=== PATIENT | male | born 1975 | race Caucasian/White ===

== ENCOUNTER 2022-08-15 13:15 | Emergency (ER) | payer MEDICARE, SELFPAY ==
[2022-08-15] VITALS (9 sets, daily range): BP systolic 115–133; BP diastolic 72–79; PULSE 61–90; RESP 11–18; TEMP 36.7; O2SAT 95–100; BMI 38.0
[2022-08-15 13:37] LABS: POC Glucose,Bedside 400 (70-110)
--- NOTE | 2022-08-15 13:48 | XR_ITS ---
FINAL REPORT TECHNIQUE: Single view chest CLINICAL HISTORY: cva FINDINGS: A single view of the chest was obtained. The heart and mediastinum are within normal limits. The lungs are clear. There is no pneumothorax. Osseous structures are unremarkable. IMPRESSION: No acute cardiopulmonary process. Reviewed, Interpreted and Dictated by Korey Robles MD Transcribed by Geeta Sotelo Authenticated and [facility]
--- NOTE | 2022-08-15 13:48 | CT_ITS ---
FINAL REPORT TECHNIQUE: Axial CT images were performed through the head. Coronal reformatted images were submitted. This study was performed with techniques to keep radiation doses as low as reasonably achievable (ALARA). Individualized dose reduction techniques using automated exposure control or adjustment of mA and/or kV according to the patient's size were employed. CLINICAL HISTORY: headache FINDINGS: The ventricles are normal in size. There is no evidence of hemorrhage. There is no mass or edema identified. There is no abnormal extra-axial fluid seen. The sinuses are well aerated. IMPRESSION: No acute intracranial process. Reviewed, Interpreted and Dictated by Korey Robles MD Transcribed by Geeta Sotelo Authenticated and [facility]
[2022-08-15 14:00] LABS: Alanine Aminotransferase 40 U/L (12-78); Albumin Level 4.3 g/dl (3.5-5.0); Albumin/Globulin Ratio 1.4 (1.1-1.8); Alkaline Phosphatase 80 U/L (38-126); Anion Gap 18.4 mEq/L (5-15); Aspartate Amino Transferase 60 U/L (17-59); Bilirubin,Total 0.8 mg/dl (0.2-1.3); Blood Urea Nitrogen 15 mg/dl (9-20); Calcium 8.7 mg/dl (8.4-10.2); Carbon Dioxide 25 mmol/L (22.0-30.0); Chloride 100 mmol/L (98-107); Creatinine Clearance Estimated 135 mL/min (50-200); Estimated Glomerular Filt Rate 65 ml/min (>60); GFR (African American) 78 ML/MIN (>60); Globulin 3.1 g/dL (1.3-3.2); Glucose 390 mg/dl (74-100); Potassium 4.4 mmoL/L (3.5-5.1); Sodium 139 mmol/L (136-145); Total Protein,Serum 7.4 g/dl (6.3-8.2)
[2022-08-15 14:10] LABS: Basophils # 0.1 K/mm3 (0-0.2); Basophils % 0.5 % (0.1-2.0); Eosinophils # 0.2 K/mm3 (0.0-0.4); Eosinophils % 1.6 % (0.1-12.0); Hemoglobin 14.5 g/dL (14.1-18.0); Lymphocytes # 2.8 K/mm3 (0.7-4.5); Mean Corpuscular HGB Conc 32.1 g/dL (31.8-35.4); Mean Corpuscular Hemoglobin 28.4 pg (27.0-31.2); Mean Corpuscular Volume 88.4 fl (80-94); Mean Platelet Volume 9.1 fl (7.4-10.4); Monocytes # 0.8 K/mm3 (0.1-1.0); Monocytes % 5.9 % (1.7-9.3); Neutrophils # 8.9 K/mm3 (1.8-7.8); Neutrophils % 70.1 % (37.0-80.0); Platelet Count 286 K/mm3 (142-424); Red Blood Count 5.09 M/mm3 (4.60-6.20); Red Cell Distribution Width 14.7 % (11.5-17.5); White Blood Count 12.7 K/mm3 (4.8-10.8)
--- NOTE | 2022-08-15 14:28 | PC.NURSE ---
oliver zheng at
--- NOTE | 2022-08-15 14:47 | PC.NURSE ---
Patient reports a continuous headache MD notified. VO Tylenol 650 mg PO
--- NOTE | 2022-08-15 14:53 | PC.NURSE ---
gr rounding on pts
--- NOTE | 2022-08-15 14:53 | PC.NURSE ---
Rounded on patient; lights turned off to help with headache. Call [facility] within reach
--- NOTE | 2022-08-15 14:56 | PC.NURSE ---
rounded on pt, no needs at this time
--- NOTE | 2022-08-15 14:58 | PC.NURSE ---
pt states he was very nausea from taking meds and drinking water, told cuco and magali
[2022-08-15 15:07] LABS: Benzodiazepines Screen,Urine Negative ng/ml (<200)
[2022-08-15 15:08] LABS: Amphetamine/Metha Screen,Urine Negative ng/ml (<1000); Barbiturates Screen,Urine Negative ng/ml (<200)
[2022-08-15 15:09] LABS: Acetone, Serum (Rapid) None Detected (None Detect)
[2022-08-15 15:09] LABS: Cannabinoid Screen,Urine Positive ng/ml (<50); Cocaine Screen,Urine Negative ng/ml (<300)
[2022-08-15 15:10] LABS: Methadone Screen,Urine Negative ng/ml (<300)
[2022-08-15 15:11] LABS: Opiate Screen,Urine Negative ng/ml (<300); Phencyclidine Screen,Urine Negative ng/ml (<25)
--- NOTE | 2022-08-15 15:12 | PC.NURSE ---
Patient requesting Phenergan and something stronger than Tylenol. MD notified will continue to monitor at this time.
--- NOTE | 2022-08-15 15:17 | PC.NURSE ---
called radiology for update on scan reading, sending down the prelim
--- NOTE | 2022-08-15 16:00 | PC.NURSE ---
rounded on pt still nauseated Diane was behind me with medication
--- NOTE | 2022-08-15 16:12 | HMH.EDGENADL ---
Discharge Plan Disposition Patient Disposition: Home Health Service Condition: Good Chief Complaint: Fall Prescriptions Prescriptions: No Action fenofibrate micronized 134 mg capsule 134 mg PO HS Label Comments: TAKE ONE CAPSULE BY MOUTH DAILY AT BEDTIME FOR 30 DAYS losartan 50 mg tablet 100 mg PO DAILY Label Comments: TAKE ONE TABLET BY MOUTH DAILY metoprolol succinate 50 mg tablet extended release 24 hr 100 mg PO DAILY Label Comments: TAKE ONE TABLET BY MOUTH EVERY DAY topiramate 25 mg tablet 25 mg PO HS Label Comments: TAKE ONE TABLET BY MOUTH AT BEDTIME potassium chloride 10 mEq tablet extended release 10 meq PO DAILY Label Comments: TAKE ONE TABLET BY MOUTH EVERY DAY clopidogrel 75 mg tablet 75 mg PO DAILY Label Comments: TAKE ONE TABLET BY MOUTH EVERY DAY pantoprazole 20 mg tablet,delayed release (DR/EC) 20 mg PO DAILY Label Comments: TAKE ONE TABLET BY MOUTH EVERY DAY trazodone 100 mg tablet 100 mg PO HS Label Comments: TAKE ONE TABLET BY MOUTH EVERY DAY baclofen 10 mg tablet 10 mg PO QID PRN (Reason: Muscle Spasm) Label Comments: TAKE ONE TABLET BY MOUTH EVERY 6 HOURS FOR 30 DAYS hydroxyzine HCl 25 mg tablet 25 mg PO NEEDED PRN (Reason: Anxiety) Label Comments: TAKE ONE TABLET BY MOUTH THREE TIMES A DAY NEEDED levetiracetam 750 mg tablet 1,500 mg PO BID Label Comments: TAKE TWO TABLETS BY MOUTH TWO TIMES A DAY lorazepam 1 mg tablet 1 mg PO TID Label Comments: TAKE ONE TABLET BY MOUTH THREE TIMES A DAY rosuvastatin 10 mg tablet 10 mg PO DAILY Label Comments: TAKE ONE TABLET BY MOUTH EVERY DAY pregabalin 150 mg capsule 150 mg PO TID Label Comments: TAKE ONE CAPSULE BY MOUTH THREE TIMES A DAY oxycodone 10 mg tablet 10 mg PO Q4HP PRN (Reason: Pain) Label Comments: TAKE ONE TABLET BY MOUTH EVERY FOUR HOURS, MAXIMUM OF SIX TABLETS A DAY FOR PAIN Referrals Follow up/Referrals: Provider,Referral, MD [Primary Care Provider] - See instructions Clinical Impressions Clinical Impression: Fall, Hyperglycemia Discharge ED Provider: Dony Mejia General Adult HPI General Chief complaint: Fall Stated complaint: Fall 08/15 Knee lac, blurry vision Time Seen by Provider: 08/15/22 13:19 Mode of Arrival: Ambulatory Source of Information: Patient and Parent(s) Limitations: No Limitations Description of Symptoms (Recalled from ER Triage Doc. 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 +Plavix. +blurred vision, however also reports blurred vision pre-fall. Pt reports chronic intermittent dizziness/unsteadiness. Rx Meclizine. Pt states he woke up with the sx this morning, administering Meclizine with improvement. FS 400 on arrival. Hx of DM II. History of Present Illness HPI narrative: 46yo M presents to the ER secondary to right sided headache and bilateral knee pain. Reports falling approximate 20 minutes prior to arrival. Patient takes Plavix. Complains of blurred vision. States he had blurry vision before his fall and reports a history of multiple strokes. His most recent stroke was 14 months ago. Recently signed out of long-term care. Complains of severe pain. Related Data Home Medications Medication Instructions Recorded Confirmed baclofen 10 mg tablet 10 mg PO QID PRN Muscle Spasm 08/15/22 08/15/22 clopidogrel 75 mg tablet 75 mg PO DAILY Blood thinner 08/15/22 08/15/22 fenofibrate micronized 134 mg 134 mg PO HS High cholesterol 08/15/22 08/15/22 capsule hydroxyzine HCl 25 mg tablet 25 mg PO NEEDED PRN Anxiety 08/15/22 08/15/22 levetiracetam 750 mg tablet 1,500 mg PO BID seizure 08/15/22 08/15/22 lorazepam 1 mg tablet 1 mg PO TID Anxiety 08/15/22 08/15/22 losartan 50 mg tablet 100 mg PO DAILY Hypertension 08/15/2208/15
== END 2022-08-15 16:51 | disposition home health service (06) ==
PROVIDERS: Emergency Provider Family Medicine
DX: R51.9 Headache, unspecified (principal); H53.8 Other visual disturbances; R42 Dizziness and giddiness; R73.9 Hyperglycemia, unspecified; M25.561 Pain in right knee; M25.562 Pain in left knee; Z79.02 Long term (current) use of antithrombotics/antiplatelets; W19.XXXA Unspecified fall, initial encounter
CPT/HCPCS: 70450; 71045; 80053; 80305; 82009; 82962; 85025; 96361; 96374; 99284; 99285; J2405

== ENCOUNTER → 2022-11-13 11:28 | Outpatient (CLI) | payer MEDICARE, MEDICAID, SELFPAY ==
--- NOTE | 2022-11-13 11:53 | XR_ITS ---
FINAL REPORT CLINICAL HISTORY: foot pain FINDINGS: LEFT FOOT Three views of the left foot demonstrate no acute fracture or dislocation. The visualized joint spaces are normally aligned. The soft tissues are unremarkable. An os trigonum is present. There is a small plantar calcaneal spur. IMPRESSION: No acute bony abnormality. Reviewed, Interpreted and Dictated by Korey Robles MD Transcribed by Ronna Carreno Authenticated and [facility]
--- NOTE | 2022-11-13 11:53 | XR_ITS ---
FINAL REPORT CLINICAL HISTORY: bilateral foot pain FINDINGS: RIGHT FOOT 3 views of the right foot were obtained. There is no acute fracture or dislocation. Visualized joint spaces are normally aligned. Soft tissues are unremarkable. There is a ossific density adjacent to the lateral malleolus, well-corticated, that may be a sequela of remote trauma. No acute bony abnormality is identified. IMPRESSION: No acute bony abnormality. Reviewed, Interpreted and Dictated by Korey Robles MD Transcribed by Ronna Carreno Authenticated and [facility]
== END ==
PROVIDERS: PCP Nurse Practitioner Family; Visit Provider Nurse Practitioner Family
DX: R09.89 Other specified symptoms and signs involving the circulatory and respiratory systems; M79.671 Pain in right foot; M79.672 Pain in left foot; B35.1 Tinea unguium
CPT/HCPCS: 73630; 87102; 87206; 87220; 93923

== ENCOUNTER → 2022-11-14 00:21 | Outpatient (CLI) | payer MEDICARE, MEDICAID, SELFPAY | PROVIDERS: PCP Nurse Practitioner Family; Visit Provider Nurse Practitioner Family | DX: E11.9 Type 2 diabetes mellitus without complications (principal) ==

== ENCOUNTER 2023-04-14 17:19 | Emergency (ER) | payer MEDICARE, MEDICAID, SELFPAY ==
[2023-04-14 17:19] VITALS: BP 135/89; PULSE 99; RESP 18; TEMP 36.6; O2SAT 98; BMI 31.6
[2023-04-14 17:30] VITALS: BP 140/79; PULSE 97; O2SAT 99
[2023-04-14 18:00] VITALS: BP 137/88; PULSE 97; RESP 14; O2SAT 98
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
--- NOTE | 2023-04-14 18:12 | PC.NURSE ---
Poison control contacted about pt injecting 180 units of SQ novolog insulin, Yolette at poison control to watch pt for 5 hours from injection checking glucose q1hour, due to his high dose of insulin it is required that 6 hours observation with Q1hr check. aware
[2023-04-14 18:15] LABS: Basophils # 0.1 K/mm3 (0-0.2); Basophils % 0.7 % (0.1-2.0); Eosinophils # 0.3 K/mm3 (0.0-0.4); Eosinophils % 2.6 % (0.1-12.0); Hematocrit 41.3 % (42.0-52.0); Hemoglobin 15.3 g/dL (14.1-18.0); Lymphocytes # 3.9 K/mm3 (0.7-4.5); Lymphocytes % 30.9 % (10-50); Mean Corpuscular Hemoglobin 31.7 pg (27.0-31.2); Mean Corpuscular Volume 85.6 fl (80-94); Mean Platelet Volume 8.3 fl (7.4-10.4); Monocytes # 0.7 K/mm3 (0.1-1.0); Monocytes % 5.2 % (1.7-9.3); Neutrophils # 7.7 K/mm3 (1.8-7.8); Neutrophils % 60.6 % (37.0-80.0); Platelet Count 194 K/mm3 (142-424); Red Blood Count 4.83 M/mm3 (4.60-6.20); Red Cell Distribution Width 13.9 % (11.5-17.5); White Blood Count 12.6 K/mm3 (4.8-10.8)
--- NOTE | 2023-04-14 18:18 | PC.NURSE ---
PT GLUCOSE IS 196
--- NOTE | 2023-04-14 18:19 | PC.NURSE ---
Called for a food tray with extra carbs.
[2023-04-14 18:23] LABS: Acetaminophen < 10 ug/ml (10-30); Alanine Aminotransferase 32 U/L (12-78); Albumin Level 4.2 g/dl (3.5-5.0); Albumin/Globulin Ratio 1.2 (1.1-1.8); Alkaline Phosphatase 72 U/L (38-126); Anion Gap 12.6 mEq/L (5-15); Aspartate Amino Transferase 36 U/L (17-59); Bilirubin,Total 0.5 mg/dl (0.2-1.3); Blood Urea Nitrogen 12 mg/dl (9-20); Calcium 9.3 mg/dl (8.4-10.2); Carbon Dioxide 23 mmol/L (22.0-30.0); Chloride 107 mmol/L (98-107); Creatinine Clearance Estimated 172 mL/min (50-200); Estimated Glomerular Filt Rate 103 ml/min (>60); GFR (African American) 124 ML/MIN (>60); Globulin 3.4 g/dL (1.3-3.2); Glucose 212 mg/dl (74-100); Potassium 3.6 mmoL/L (3.5-5.1); Salicylate < 1.0 mg/dL (2.0-20.0); Sodium 139 mmol/L (136-145); Total Protein,Serum 7.6 g/dl (6.3-8.2)
[2023-04-14 18:24] LABS: Ethyl Alcohol < 10 mg/dl (0-10)
[2023-04-14 18:30] VITALS: BP 135/85; PULSE 93; O2SAT 98
--- NOTE | 2023-04-14 18:32 | PC.NURSE ---
PT STATED HE FELT LIKE HE WAS ABOUT TO HAVE A SEIZURE NOTIFIED CHARGE NURSE AND SEIZURE PADS PLACED ON BED WITH AURORA PERKINS
--- NOTE | 2023-04-14 18:33 | PC.NURSE ---
PT REFUSED SUPER TRAY
--- NOTE | 2023-04-14 18:43 | PC.NURSE ---
PT refuses to eat food at this time. is aware
[2023-04-14] MEDS: ACETAMINOPHEN 500MG TAB 1000 MG PO (18:48)
[2023-04-14] MEDS: DEXTROSE 5%-LACTATED RINGERS 1,000 ML 250 ML IV (18:48)
[2023-04-14] MEDS: LORazepam 2MG/ML VIAL 1 MG IV ×2 (18:57→20:37)
[2023-04-14 19:00] VITALS: BP 146/82; PULSE 90; O2SAT 99
--- NOTE | 2023-04-14 19:09 | PC.NURSE ---
finger stick 226
[2023-04-14 19:15] VITALS: BP 146/82; PULSE 92; O2SAT 98
--- NOTE | 2023-04-14 19:30 | PC.NURSE ---
contacted warehouseman re: patient's threats
--- NOTE | 2023-04-14 19:30 | PC.NURSE ---
pd contacted via dispatch for officer presence
--- NOTE | 2023-04-14 19:34 | PC.NURSE ---
Patient reported to the 1:1 staff that he felt a rage coming that he felt like he would be unable to control soon. Patient was asked to elaborate and he states that I feel that I want to cause as much destruction as possible , he continues that he feels he could create a lot of damage, he affirms that he does not want to hurt any person or staff, but feels as though he wants to break things and cause havoc . Patient states that he has never felt this way before, that he has also never woke up and wanted to before either. Notified rn relief charge and provider at [id number].
--- NOTE | 2023-04-14 19:36 | PC.NURSE ---
items removed from room by EMI Garcia
--- NOTE | 2023-04-14 19:42 | PC.NURSE ---
PD at bedside speaking to patient
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
--- NOTE | 2023-04-14 20:09 | PC.NURSE ---
finger stick 188
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
--- NOTE | 2023-04-14 20:25 | PC.NURSE ---
Patient began screaming repeatedly, Dr. Winters to bedside. Patient states no one cares , 1:1 staff and housekeeper home already at bedside. Patient visibly agitated, states that someone just needs to sedate me .
--- NOTE | 2023-04-14 20:27 | PC.NURSE ---
in room talking with patient
[2023-04-14] MEDS: HALOPERIDOL LACTATE 5 MG/ML VIAL 2 MG IM (20:40)
[2023-04-14] MEDS: diphenhydrAMINE 50MG/ML VIAL 25 MG IM (20:41)
--- NOTE | 2023-04-14 20:47 | PC.NURSE ---
Patient had continued to repeatedly strike himself in the face, open-palmed, intermittently. Medications have been administered at this time. Two staff remain at bedside to ensure patient safety at this time.
--- NOTE | 2023-04-14 21:02 | PC.NURSE ---
finger stick 164
--- NOTE | 2023-04-14 21:06 | PC.NURSE ---
While sitting in room with pt and his 1:1 he began hitting himself frequently. He kept asking if they even know it's happening. He asked, do they even see it? aware. He stated he did not see a camera in the room and that he could just say the staff in the room did it. He continues to ask if his eye is red or bleeding. He stated that punching himself is the only way to relieve the pain. He initially denied ever talking to someone about his behavioral health in the past but later mentioned that he used to see someone in [place]. Two staff members in room.
--- NOTE | 2023-04-14 21:07 | PC.NURSE ---
FAXED [id number] TO EATING DISORDER PSYCHOLOGIST AMANDA
[2023-04-14 21:11] LABS: Amphetamine/Metha Screen,Urine Negative ng/ml (<1000)
[2023-04-14 21:12] LABS: Barbiturates Screen,Urine Negative ng/ml (<200)
[2023-04-14 21:13] LABS: Benzodiazepines Screen,Urine Negative ng/ml (<200); Cannabinoid Screen,Urine Negative ng/ml (<50)
[2023-04-14 21:14] LABS: Cocaine Screen,Urine Negative ng/ml (<300)
[2023-04-14 21:15] LABS: Methadone Screen,Urine Negative ng/ml (<300); Opiate Screen,Urine Negative ng/ml (<300)
--- NOTE | 2023-04-14 21:17 | PC.NURSE ---
CONTACTED JUDGE PATEL TO CONFIRM RECEIPT OF PAPERWORK
[2023-04-14 21:18] LABS: Phencyclidine Screen,Urine Negative ng/ml (<25)
--- NOTE | 2023-04-14 21:51 | PC.NURSE ---
lights turned down, head of bed lowered for comfort, 2 staff members still at bedside
--- NOTE | 2023-04-14 22:09 | PC.NURSE ---
Spoke with Yolette from poison control. Updated on lab values and recent blood sugar. Poison control reports that they do not feel a need to follow up at this time.
--- NOTE | 2023-04-14 22:13 | PC.NURSE ---
patient sleeping, waiting on doctor to advise if we need to wake pt and get fingerstick
--- NOTE | 2023-04-14 22:16 | PC.NURSE ---
per ED doctor finger stick can stop at this time. One staff member at bedside at this time
--- NOTE | 2023-04-14 22:53 | PC.NURSE ---
pt on with [facility]
--- NOTE | 2023-04-14 23:45 | PC.NURSE ---
contacted [facility]. they havent arranged with dispatch yet. it is next on list. marley is the contact at [facility].
--- NOTE | 2023-04-15 00:41 | PC.NURSE ---
RN speaking with police officers, custody is turned over to them at this time
[2023-04-15 00:53] VITALS: BP 142/100; PULSE 89; RESP 16; TEMP 36.7; O2SAT 98
== END 2023-04-15 00:55 ==
PROVIDERS: Emergency Provider Student in an Organized Health Care Education/Training Program; PCP Nurse Practitioner Family
DX: T38.3X2A Poisoning by insulin and oral hypoglycemic [antidiabetic] drugs, intentional self-harm, initial encounter (principal); R45.851 Suicidal ideations; G89.29 Other chronic pain; G62.9 Polyneuropathy, unspecified; F17.200 Nicotine dependence, unspecified, uncomplicated
CPT/HCPCS: 80053; 80307; 80329; 85025; 96372; 96374; 96375; 96376; 99285

== ENCOUNTER 2023-05-22 15:08 | Outpatient (CLI) | payer MEDICARE, MEDICAID, SELFPAY ==
--- NOTE | 2023-05-22 15:15 | XR_ITS ---
FINAL REPORT CLINICAL HISTORY: LT HIP PAIN COMPARISON: None FINDINGS: LEFT HIP: Two views of the left hip and an AP view of the pelvis demonstrate no acute fracture or dislocation. There is mild degenerative change. 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 The visualized bony structures are well aligned. No soft tissue abnormality is seen. There is postoperative change in the lower lumbar spine. 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 Reviewed, Interpreted and Dictated by Angelito Otto III, MD Transcribed by Maliha Gonsalves Authenticated and [facility]
== END 2023-05-22 23:59 ==
LOC: RAD 15:09
PROVIDERS: PCP Nurse Practitioner Family; Visit Provider Nurse Practitioner Family
DX: M25.552 Pain in left hip (principal)
CPT/HCPCS: 73502

== ENCOUNTER 2023-05-27 07:10 | Outpatient (CLI) | payer MEDICARE, MEDICAID, SELFPAY ==
--- NOTE | 2023-05-27 07:11 | CT_ITS ---
FINAL REPORT TECHNIQUE: Thin section axial CT images of the facial bones and sinuses were obtained without contrast. Coronal reformatted images were also obtained.This study was performed with techniques to keep radiation doses as low as reasonably achievable, (ALARA). Individualized dose reduction techniques using automated exposure control or adjustment of mA and/or kV according to the patient''''s size were employed. CLINICAL HISTORY: Sinus Pain/Pressure greater on right side COMPARISON: None FINDINGS: There is mild mucosal thickening in the floor of the left maxillary sinus. There is no evidence of mucosal thickening. No fluid levels are identified. The ostiomeatal units have an unremarkable appearance. There are bilateral riley bullosa present. There is a left septal deviation with a left-sided spur. No fracture or acute bony abnormality is identified. IMPRESSION: Mild mucosal thickening in the floor of the left maxillary sinus. Bilateral riley bullosa. Left septal deviation with a left-sided nasal bone spur. Reviewed, Interpreted and Dictated by Angelito Otto III, MD Transcribed by Ronna Carreno Authenticated and [facility]
== END 2023-05-27 23:59 ==
LOC: RAD 07:11
PROVIDERS: PCP Family Medicine; Visit Provider Nurse Practitioner
DX: R51.9 Headache, unspecified (principal); J32.9 Chronic sinusitis, unspecified; Z72.0 Tobacco use
CPT/HCPCS: 70486

== ENCOUNTER 2023-06-03 14:27 | Outpatient (CLI) | payer MEDICARE, MEDICAID, SELFPAY ==
--- NOTE | 2023-06-03 14:31 | MR_ITS ---
FINAL REPORT CLINICAL HISTORY: LEFT HIP IMPINGEMENT SYNDROME, CHRONIC PAIN FINDINGS: Multiplanar MR imaging of the left hip was performed without contrast. There are mild degenerative changes of the hips bilaterally with small joint effusions. There is no evidence of fracture or dislocation. There is no evidence of avascular necrosis. No bony mass is identified. There is labral degeneration with mild irregularity of the left anterior superior labrum worrisome for tear. There is a small subchondral cyst in the anterior left femoral head.. The tendons are intact. The musculature is intact. No soft tissue mass or cyst is identified. IMPRESSION: Mild irregularity of the left anterior superior labrum worrisome for tear. Small subchondral cyst in the anterior left femoral head. Mild degenerative changes bilaterally with small joint effusions. Reviewed, Interpreted and Dictated by Angelito Otto III, MD Transcribed by Geeta Sotelo Authenticated and . [facility]
== END 2023-06-03 23:59 ==
LOC: RAD 14:28
PROVIDERS: PCP Nurse Practitioner; Visit Provider Nurse Practitioner
DX: M25.852 Other specified joint disorders, left hip (principal); G89.29 Other chronic pain
CPT/HCPCS: 73721

== ENCOUNTER 2023-09-16 10:20 | Outpatient (POV) | payer MEDICARE, MEDICAID, SELFPAY | END 2023-09-16 23:59 | disposition home or self-care (01) | LOC: SC 10:20 | PROVIDERS: PCP Nurse Practitioner; Visit Provider Dermatology | DX: Z00.00 Encounter for general adult medical examination without abnormal findings (principal) ==

== ENCOUNTER 2023-12-03 13:06 | Outpatient (CLI) | payer MEDICARE, MEDICAID, SELFPAY ==
--- NOTE | 2023-12-03 13:14 | MR_ITS ---
FINAL REPORT CLINICAL HISTORY: MID BACK PAIN FINDINGS: Multiplanar MR imaging of the thoracic spine was performed without contrast. On the sagittal T2-weighted images, there is abnormal decreased signal throughout the thoracic spine. There is no evidence of fracture. The vertebral alignment is normal. The thoracic spinal cord has an unremarkable appearance without evidence of mass, edema or syrinx. There is no evidence of canal stenosis or cord compression. On the axial images, no focal disc protrusion is identified. There is no evidence of significant canal stenosis. No paraspinous soft tissue abnormality is seen. IMPRESSION: Diffuse changes of degenerative disc disease. Reviewed, Interpreted and Dictated by Korey Robles MD Transcribed by Karin Melgar Authenticated and [facility]
--- NOTE | 2023-12-03 13:14 | MR_ITS ---
FINAL REPORT CLINICAL HISTORY: LOWER BACK PAIN FINDINGS: Multiplanar MR imaging of the lumbar spine was performed without contrast. On the sagittal T2-weighted images, there is abnormal decreased signal throughout the lumbar discs. Magnetic artifact is seen associated with posterior fusion hardware bridging L5-S1. The vertebrae are of normal height. The vertebral alignment is normal. L1-2: There is no significant canal stenosis or neural foraminal narrowing. L2-3: Mild diffuse disc bulge is present with mild bilateral neural foraminal narrowing. L3-4: Mild to moderate diffuse disc bulge is present with moderate bilateral neural foraminal narrowing. L4-5: Moderate diffuse disc bulge is present. There is bilateral facet hypertrophy with moderate to high-grade left neural foraminal narrowing. L5-S1: There is no significant canal stenosis or neural foraminal narrowing. IMPRESSION: Posterior fusion hardware bridging L5-S1. Neural foraminal compromise, most evident bilaterally at L3-4 and on the left at L4-5. Reviewed, Interpreted and Dictated by Korey Robles MD Transcribed by Karin Melgar Authenticated and [facility]
== END 2023-12-03 23:59 | disposition home or self-care (01) ==
LOC: RAD 13:08
PROVIDERS: PCP Nurse Practitioner; Visit Provider Orthopaedic Surgery
DX: M54.50 Low back pain, unspecified (principal); M54.6 Pain in thoracic spine
CPT/HCPCS: 72146; 72148

== ENCOUNTER 2023-12-05 12:06 | Emergency (ER) | payer MEDICARE, MEDICAID, SELFPAY ==
[2023-12-05 12:08] VITALS: BP 134/80; PULSE 85; RESP 18; TEMP 37.3; O2SAT 99; BMI 31.6
--- NOTE | 2023-12-05 12:15 | ECG_ITS ---
APPROVED REPORT Exam: Resting ECG HR:84 bpm ECG Measurements Heart Rate 84 AXES QRSd 92 QRS 104 QT 363 T 104 QTc 404 Conclusion SUPRAVENTRICULAR RHYTHM RIGHT AXIS DEVIATION [QRS AXIS > 100] MODERATE ST DEPRESSION [0.05+ mV ST DEPRESSION] ABNORMAL ECG Electronically signed by : YANELIS HAIR, 12/05/2023 14:21:54
--- NOTE | 2023-12-05 12:29 | PC.NURSE ---
dr casey at bedside
[2023-12-05 12:30] VITALS: BP 134/81; PULSE 87; O2SAT 98
--- NOTE | 2023-12-05 12:36 | XR_ITS ---
FINAL REPORT TECHNIQUE: Chest PA & Lateral CLINICAL HISTORY: SOA COMPARISON: 08/15/2022 FINDINGS: 2 views of the chest were performed. The heart size is normal. The mediastinum is within normal limits. There is no acute cardiopulmonary process. There are no pleural effusions. There is no pneumothorax. The bony thorax appears intact. IMPRESSION: No acute cardiopulmonary process. Reviewed, Interpreted and Dictated by Korey Roblse MD Transcribed by Ronna Carreno Authenticated and [facility]
--- NOTE | 2023-12-05 12:40 | ED_ITS ---
Discharge Plan Disposition Patient Disposition: Home, Self-Care Prescriptions Prescriptions: No Action potassium chloride 10 mEq capsule, extended release 10 meq PO DAILY trazodone 50 mg tablet PO Patient Comments: TAKE 1 TABLET BY MOUTH EVERY NIGHT AT BEDTIME clopidogrel [Plavix] 75 mg tablet 75 mg PO DAILY folic acid 400 mcg tablet PO Patient Comments: TAKE 1 TABLET BY MOUTH ONCE DAILY pantoprazole [Protonix] 20 mg tablet,delayed release (DR/EC) 20 mg PO DAILY insulin aspart U-100 [Novolog U-100 Insulin aspart] 100 unit/mL solution 1 sliding scale dose SQ USEASDIRECTD (DME) insulin syringe-needle U-100 [BD Insulin Syringe Ultra-Fine] 1 mL 31 gauge x 5/16 syringe See Rx Instructions .ROUTE .MEDSUPPLY Qty: 10 Patient Comments: USE DIRECTED SUBCUTANEOUS FOUR TIMES DAILY Rx Instructions: As directed glucagon 1 mg recon soln 1 mg SQ Q20M PRN Rx Instructions: until target blood sugar attained fenofibrate nanocrystallized 48 mg tablet PO levocetirizine [Xyzal] 5 mg tablet 5 mg PO DAILY Qty: 30 2RF methocarbamol 750 mg tablet 750 mg PO Q6H Patient Comments: TAKE 1 TABLET BY MOUTH EVERY 6 HOURS baclofen 10 mg tablet 10 mg PO Q6H PRN insulin glargine [Lantus U-100 Insulin] 100 unit/mL solution 100 unit SQ HS Patient Comments: ADMINISTER 50 UNITS UNDER THE SKIN TWICE DAILY FOR 30 DAYS losartan 50 mg tablet 100 mg PO DAILY Patient Comments: TAKE ONE TABLET BY MOUTH DAILY metoprolol succinate 50 mg tablet extended release 24 hr 50 mg PO DAILY Patient Comments: TAKE ONE TABLET BY MOUTH EVERY DAY topiramate 25 mg tablet 25 mg PO HS Patient Comments: TAKE ONE TABLET BY MOUTH AT BEDTIME hydroxyzine HCl 25 mg tablet 25 mg PO NEEDED PRN (Reason: Anxiety) Patient Comments: TAKE ONE TABLET BY MOUTH THREE TIMES A DAY NEEDED levetiracetam 750 mg tablet 1,500 mg PO BID Patient Comments: TAKE TWO TABLETS BY MOUTH TWO TIMES A DAY lorazepam 1 mg tablet 1 mg PO TID Patient Comments: TAKE ONE TABLET BY MOUTH THREE TIMES A DAY rosuvastatin 10 mg tablet 10 mg PO DAILY Patient Comments: TAKE ONE TABLET BY MOUTH EVERY DAY pregabalin 150 mg capsule 150 mg PO TID Patient Comments: TAKE ONE CAPSULE BY MOUTH THREE TIMES A DAY oxycodone 10 mg tablet 10 mg PO Q6HP PRN (Reason: Pain) Patient Comments: TAKE ONE TABLET BY MOUTH EVERY FOUR HOURS, MAXIMUM OF SIX TABLETS A DAY FOR PAIN Referrals Follow up/Referrals: Shamika Roy APRN [Primary Care Provider] - See instructions Activity Restrictions/Add. Instructions Additional Instructions/Restrictions: At this time it was felt you are safe to be discharged home. If new or worsening symptoms please do not hesitate to return the emergency department. Clinical Impressions Clinical Impression: COVID-19 Print Language Print Language: [place] Citizen Discharge ED Provider: Bhupinder Jackson General Adult HPI General Chief complaint: Upper Respiratory Infection Stated complaint: SOA, dizzy, loss of appetite,fever, Time Seen by Provider: 12/05/23 12:10 Mode of Arrival: Wheelchair Source of Information: Patient Limitations: No Limitations Description of Symptoms (Recalled from ER Triage Doc. 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 Patient states he has had shortness of breath, cough, diffuse bodyaches over the last 2 to 3 weeks. No chest pain, no abdominal pain. He wakes up in the morning and has a significant coughing fit every morning with phlegm production causing him to vomit otherwise does not have vomiting throughout the day. No abdominal pain. No speech difficulties, no neurologic changes compared to baseline. He normally gets around with a cane. No headache or vision changes reported. No other acute complaints at this time Related Data Home Medications ?Medication ?Instructions ?Recorded ?Confirmed hydroxyzine HCl 25 mg tablet 25 mg PO NEEDED PRN Anxiety 08/15/22 11/03/23 levetiracetam 750 mg tablet 1,500 mg PO BID seizure 08/15/22 11/03/23 lorazepam 1 mg tablet 1 mg PO TID Anxiety 08/15/22 11/03/23 losartan 50 mg tablet 100 mg PO DAILY Hypertension 08/15/22 11/03/23 metoprolol succinate 50 mg 50 mg PO DAILY Hypertension 08/15/22 11/03/23 tablet,extended release 24 hr oxycodone 10 mg tablet 10 mg PO Q6HP PRN Pain 08/15/22 11/03/23 pregabalin 150 mg capsule 150 mg PO TID Tremors 08/15/22 11/03/23 rosuvastatin 10 mg tablet 10 mg PO DAILY Cholesterol 08/15/22 11/03/23 topiramate 25 mg tablet 25 mg PO HS Headache 08/15/22 11/03/23 insulin glargine 100 unit/mL 100 unit SQ HS 04/14/23 11/03/23 subcutaneous solution (Lantus U-100 Insulin) clopidogrel 75 mg tablet (Plavix) 75 mg PO DAILY 05/06/23 11/03/23 fenofibrate nanocrystallized 48 mg mg PO 05/06/23 11/03/23 tablet folic acid 400 mcg tablet PO 05/06/23 11/03/23 glucagon 1 mg solution for 1 mg SQ Q20M PRN 05/06/23 11/03/23 injection insulin aspart U-100 100 unit/mL 1 sliding scale dose SQ 05/06/23 11/03/23 subcutaneous solution (Novolog USEASDIRECTD U-100 Insulin aspart) insulin syringe-needle U-100 1 mL #10 ea 05/06/23 11/03/23 31 gauge x 5/16 (BD Insulin Syringe Ultra-Fine) pantoprazole 20 mg tablet,delayed 20 mg PO DAILY 05/06/23 11/03/23 release (Protonix) potassium chloride 10 mEq 10 meq PO DAILY 05/06/23 11/03/23 capsule,extended release trazodone 50 mg tablet mg PO 05/06/23 11/03/23 baclofen 10 mg tablet 10 mg PO Q6H PRN 06/17/23 11/03/23 methocarbamol 750 mg tablet 750 mg PO Q6H 06/17/23 11/03/23 Previous Rx's ?Medication ?Instructions ?Recorded levocetirizine 5 mg tablet (Xyzal) 5 mg PO DAILY #30 tabs 05/15/23 Allergies Allergy/AdvReac Type Severity Reaction Status Date / Time aspirin Allergy Severe Anaphylaxis Verified 11/03/23 10:34 ibuprofen [From Motrin] Allergy Severe Anaphylaxis Verified 11/03/23 10:34 naproxen [From Aleve] Allergy Severe Anaphylaxis Verified 11/03/23 10:34 metoclopramide [From Reglan] AdvReac Intermediate Agitated Verified 11/03/23 10:34 midazolam [From Versed] AdvReac Intermediate Agitated Verified 11/03/23 10:34 [facility] Disclaimer: The information contained in this section may have been updated after the patient was seen, as this information can be updated by other users. Medical History Skin induration Deviated septum Right maxillary sinus opacification Headache Chronic sinusitis Right sided facial pain Pain due to onychomycosis of toenail Neuropathy involving both lower extremities Bilateral foot pain Nail fungus Social History Smoking Status: Current every day smoker alcohol intake: never current occupational status: other Travel in the last 8 weeks: None ROS Obtained: Yes Systems reviewed as appropriate & no additional complaints except as documented Physical Exam General General appearance: alert and in no apparent distress Head Head exam: atraumatic and normocephalic Eye Eye exam: Present PERRL and EOMI ENT ENT exam: Present mucous membranes moist Neck Neck exam: Present normal inspection Chest Chest inspection: Present normal inspection and symmetric chest wall rise Respiratory Respiratory exam: Present normal lung sounds bilaterally; Absent respiratory distress Cardiovascular Cardiovascular exam: Present regular rate and normal rhythm Abdominal Exam Abdominal exam: Present soft; Absent tenderness Extremities Exam Extremities exam: Present normal inspection Neurological Exam Neurological exam: Present alert and motor sensory deficit (4-5 strength left lower extremity) Psychiatric Psychiatric exam: Present normal affect Skin Skin exam: Present warm and dry Medical Decision Making Medical Records Screening: Per USPSTF and CDC recommendations, given the prevalence of disease in our region, it is our hospital?s policy to screen for HIV and viral Hepatitis for all patients aged 18 and over and those with ongoing risk factors. Len Inquiry Pt receiving controlled substance: No Vital Signs: 12/05/23 12:08 12/05/23 12:30 12/05/23 13:00 Temperature 99.1 F Temperature Source Oral Pulse Rate 87 75 Pulse Rate [Radial] 85 Respiratory Rate 18 16 Blood Pressure 134/81 126/62 Blood Pressure [Right Arm] 134/80 Blood Pressure Mean 90 83 Blood Pressure Mean [Right Arm] 98 Blood Pressure Source [Right Arm] Automatic Cuff Blood Pressure Position [Right Arm] Sitting 02 Sat by Pulse Oximetry 99 98 97 Oxygen Delivery Method Room Air Room Air Lab Data Lab Results 12/05/23 12:24: WBC 12.7 H, RBC 5.25, Hgb 15.5, Hct 48.1, MCV 91.6, MCH 29.6, MCHC 32.3, RDW 14.2, Plt Count 251, MPV 7.9, Neut % (Auto) 66.1, Lymph % (Auto) 24.9, [place] % (Auto) 5.7, Eos % (Auto) 2.8, Baso % (Auto) 0.5, Neut # (Auto) 8.4 H, Lymph # (Auto) 3.2, [place] # (Auto) 0.7, Eos # (Auto) 0.4, Baso # (Auto) 0.1, D-Dimer 0.28, Sodium 138, Potassium 4.2, Chloride 102, Carbon Dioxide 28, Anion Gap 12.2, BUN 8 L, Creatinine 1.00, Estimated Creat Clear 136, Estimated GFR 79, Est GFR ( Amer) 96, Glucose 321 H, Calcium 9.7, Magnesium 1.9, Total Bilirubin 1.0, AST 30, ALT 25, Alkaline Phosphatase 57, Total Creatine Kinase 54 L, Troponin I < 0.01, NT-Pro-B Natriuret Pep 41.3, Total Protein 7.9, Albumin 4.4, Globulin 3.5 H, Albumin/Globulin Ratio 1.3, SARS-CoV-2 (PCR) Detected A, Influenza A Untype (PCR) Not detected, Influenza Type B (PCR) Not detected 12/05/23 12:24 12/05/23 12:24 Orders (Tests/Meds): ED MEDICATIONS Discontinued Medications Generic Name Dose Route Start Last Admin Trade Name Freq PRN Reason Stop Dose Admin Acetaminophen 1,000 mg 12/05/23 12:36 12/05/23 12:42 Acetaminophen 1,000mg/100ml Vial IV 12/05/23 12:37 1,000 mg ONCE ONE Administration Methocarbamol 1,000 mg 12/05/23 12:39 12/05/23 12:42 Methocarbamol 500mg Tablet PO 12/05/23 12:40 1,000 mg ONCE ONE Administration Oxycodone HCl 10 mg 12/05/23 13:27 12/05/23 13:31 Oxycodone 5mg Immediate Release Tablet PO 12/05/23 13:28 10 mg ONCE ONE Administration ORDERS Category Date Time Status CXR 2 view (NOT portable) [XR chest 2V] Stat Exams 12/05/23 12:36 Taken BNP [NT Pro Brain Natriuretic Pep.] Stat Lab 12/05/23 12:24 Completed CBC w/Auto Diff [Complete Blood Count Auto Diff] Stat Lab 12/05/23 12:24 Completed CK [Creatine Kinase] Stat Lab 12/05/23 12:24 Completed CMP [Comprehensive Metabolic Panel] Stat Lab 12/05/23 12:24 Completed D-Dimer Stat Lab 12/05/23 12:24 Completed HIV (1&2) Antibody Rapid Stat Lab 12/05/23 12:24 Received Hep C Ab with Reflex to RNA Stat Lab 12/05/23 12:24 Received MG [Magnesium] Stat Lab 12/05/23 12:24 Completed Rapid PCR Covid and Flu A/B Stat Lab 12/05/23 12:24 Completed Trop I [Troponin I] Stat Lab 12/05/23 12:24 Completed ECG Data Tracing #1: Independently interpreted by me rate is 84, rhythm is regular, axis is rightward deviated, no ST elevation in anatomical contiguous leads, QTc 404, lead V3 nondiagnostic. Medical Decision Narrative: In summary patient is a 48-year-old male past medical history described above who presents emergency for evaluation of subacute cough and myalgias. Patient is hemodynamically stable nontoxic-appearing upon arrival, afebrile. Differential includes interstitial pneumonia, prolonged viral syndrome, myositis, electrolyte derangement, pulmonary embolism, among others. Workup be conducted with hematologic labs, chest x-ray, EKG, D-dimer, BNP. Initial inventions include Tylenol, Robaxin. Home dose oxycodone 10 mg will be administered. Workup reviewed by me, hematologic labs are nonactionable, leukocytosis 12.7, D-dimer excludes pulmonary embolism, no DARSHAN or critical electrolyte abnormality, patient has moderately uncontrolled diabetes without elevated anion gap for which no acute intervention is warranted with a sugar of 321. Initial troponin undetectably low in the setting of no chest pain. COVID- positive. Chest x-ray informally interpreted by me, no acute large lobar opacities or pneumothorax upon repeat evaluation patient was well-appearing, tolerating p.o. intake with no oxygen requirement. Given this patient is appropriate for discharge at this time was given return precautions. Patient is well outside of the window for Paxlovid given duration of symptoms. Critical Care Critical Care Time Critical Care Time: No
[2023-12-05] MEDS: METHOCARBAMOL 500MG TABLET 1000 MG PO (12:42)
[2023-12-05] MEDS: ACETAMINOPHEN 1,000MG/100ML VIAL 1000 MG IV (12:42)
[2023-12-05 12:44] LABS: Influenza A, PCR Not Detected (NotDetected); Influenza B, PCR Not Detected (NotDetected)
[2023-12-05 12:54] LABS: Basophils # 0.1 K/mm3 (0-0.2); Basophils % 0.5 % (0.1-2.0); Eosinophils # 0.4 K/mm3 (0.0-0.4); Eosinophils % 2.8 % (0.1-12.0); Hematocrit 48.1 % (42.0-52.0); Hemoglobin 15.5 g/dL (14.1-18.0); Lymphocytes # 3.2 K/mm3 (0.7-4.5); Lymphocytes % 24.9 % (10-50); Mean Corpuscular HGB Conc 32.3 g/dL (31.8-35.4); Mean Corpuscular Hemoglobin 29.6 pg (27.0-31.2); Mean Corpuscular Volume 91.6 fl (80-94); Mean Platelet Volume 7.9 fl (7.4-10.4); Monocytes # 0.7 K/mm3 (0.1-1.0); Monocytes % 5.7 % (1.7-9.3); Neutrophils # 8.4 K/mm3 (1.8-7.8); Neutrophils % 66.1 % (37.0-80.0); Platelet Count 251 K/mm3 (142-424); Red Blood Count 5.25 M/mm3 (4.60-6.20); Red Cell Distribution Width 14.2 % (11.5-17.5); White Blood Count 12.7 K/mm3 (4.8-10.8)
[2023-12-05 12:58] LABS: Alanine Aminotransferase 25 U/L (12-78); Albumin Level 4.4 g/dl (3.5-5.0); Albumin/Globulin Ratio 1.3 (1.1-1.8); Alkaline Phosphatase 57 U/L (38-126); Anion Gap 12.2 mEq/L (5-15); Aspartate Amino Transferase 30 U/L (17-59); Blood Urea Nitrogen 8 mg/dl (9-20); Calcium 9.7 mg/dl (8.4-10.2); Carbon Dioxide 28 mmol/L (22.0-30.0); Chloride 102 mmol/L (98-107); Creatine Kinase 54 U/L (55-170); Creatinine Clearance Estimated 136 mL/min (50-200); Estimated Glomerular Filt Rate 79 ml/min (>60); GFR (African American) 96 ML/MIN (>60); Globulin 3.5 g/dL (1.3-3.2); Glucose 321 mg/dl (74-100); Magnesium 1.9 mg/dl (1.6-2.3); Potassium 4.2 mmoL/L (3.5-5.1); Sodium 138 mmol/L (136-145); Total Protein,Serum 7.9 g/dl (6.3-8.2)
[2023-12-05 13:00] VITALS: BP 126/62; PULSE 75; RESP 16; O2SAT 97
[2023-12-05 13:02] LABS: D-Dimer 0.28 ug/mL (0.0-0.5)
[2023-12-05 13:08] LABS: NT Pro Brain Natriuretic Pep. 41.3 pg/mL (0-125)
[2023-12-05 13:14] LABS: Coronavirus 19, PCR Detected (NotDetected)
[2023-12-05 13:20] LABS: Troponin I < 0.01 ng/ml (0.00-0.034)
[2023-12-05] MEDS: OXYCODONE 5MG IMMEDIATE RELEASE TABLET 10 MG PO (13:31)
--- NOTE | 2023-12-05 13:36 | PC.NURSE ---
DR HAIR AT BEDSIDE TO UPDATE PT
[2023-12-05 13:37] VITALS: BP 120/78; PULSE 78; RESP 18; TEMP 36.6; O2SAT 98
[2023-12-05 14:17] LABS: HIV (1&2) Antibody Rapid NONREACTIVE (NONREACTIVE)
[2023-12-06 09:32] LABS: HCV Ab Non Reactive (Non Reactive)
== END 2023-12-05 13:44 | disposition home or self-care (01) ==
PROVIDERS: Emergency Provider Emergency Medicine; PCP Nurse Practitioner
DX: U07.1 COVID-19 (principal); J06.9 Acute upper respiratory infection, unspecified; R06.02 Shortness of breath; R42 Dizziness and giddiness; R50.9 Fever, unspecified; R63.0 Anorexia; R05.9 Cough, unspecified; R09.81 Nasal congestion; I69.354 Hemiplegia and hemiparesis following cerebral infarction affecting left non-dominant side; G62.9 Polyneuropathy, unspecified; F17.200 Nicotine dependence, unspecified, uncomplicated
CPT/HCPCS: 71046; 80053; 82550; 83735; 83880; 84484; 85025; 85378; 86803; 87389; 87636; 93005; 96374; 99285; J0131

== ENCOUNTER 2023-12-09 14:08 | Emergency (ER) | payer MEDICARE, MEDICAID, SELFPAY ==
[2023-12-09 14:09] VITALS: BP 136/76; PULSE 80; RESP 18; TEMP 36.4; O2SAT 99; BMI 30.3
--- NOTE | 2023-12-09 14:31 | ED_ITS ---
<Statement entered by Tim Winters MD - 12/18/23 22:50> I was consulted by the TONIE, and we discussed the complexity of the problems being addressed. I approved the treatment and management plan for this patient's care in the emergency department, thus performing a substantive portion of the medical decision making. Tim Winters MD, LESIA, FACEP Discharge Plan Disposition Patient Disposition: Home, Self-Care Condition: Good Prescriptions Prescriptions: New amoxicillin-pot clavulanate 875-125 mg tablet 1 tab PO BID 7 Days Qty: 14 0RF No Action potassium chloride 10 mEq capsule, extended release 10 meq PO DAILY trazodone 50 mg tablet PO Patient Comments: TAKE 1 TABLET BY MOUTH EVERY NIGHT AT BEDTIME clopidogrel [Plavix] 75 mg tablet 75 mg PO DAILY folic acid 400 mcg tablet PO Patient Comments: TAKE 1 TABLET BY MOUTH ONCE DAILY pantoprazole [Protonix] 20 mg tablet,delayed release (DR/EC) 20 mg PO DAILY insulin aspart U-100 [Novolog U-100 Insulin aspart] 100 unit/mL solution 1 sliding scale dose SQ USEASDIRECTD (DME) insulin syringe-needle U-100 [BD Insulin Syringe Ultra-Fine] 1 mL 31 gauge x 5/16 syringe See Rx Instructions .ROUTE .MEDSUPPLY Qty: 10 Patient Comments: USE DIRECTED SUBCUTANEOUS FOUR TIMES DAILY Rx Instructions: As directed glucagon 1 mg recon soln 1 mg SQ Q20M PRN Rx Instructions: until target blood sugar attained fenofibrate nanocrystallized 48 mg tablet PO levocetirizine [Xyzal] 5 mg tablet 5 mg PO DAILY Qty: 30 2RF methocarbamol 750 mg tablet 750 mg PO Q6H Patient Comments: TAKE 1 TABLET BY MOUTH EVERY 6 HOURS baclofen 10 mg tablet 10 mg PO Q6H PRN insulin glargine [Lantus U-100 Insulin] 100 unit/mL solution 100 unit SQ HS Patient Comments: ADMINISTER 50 UNITS UNDER THE SKIN TWICE DAILY FOR 30 DAYS losartan 50 mg tablet 100 mg PO DAILY Patient Comments: TAKE ONE TABLET BY MOUTH DAILY metoprolol succinate 50 mg tablet extended release 24 hr 50 mg PO DAILY Patient Comments: TAKE ONE TABLET BY MOUTH EVERY DAY topiramate 25 mg tablet 25 mg PO HS Patient Comments: TAKE ONE TABLET BY MOUTH AT BEDTIME hydroxyzine HCl 25 mg tablet 25 mg PO NEEDED PRN (Reason: Anxiety) Patient Comments: TAKE ONE TABLET BY MOUTH THREE TIMES A DAY NEEDED levetiracetam 750 mg tablet 1,500 mg PO BID Patient Comments: TAKE TWO TABLETS BY MOUTH TWO TIMES A DAY lorazepam 1 mg tablet 1 mg PO TID Patient Comments: TAKE ONE TABLET BY MOUTH THREE TIMES A DAY rosuvastatin 10 mg tablet 10 mg PO DAILY Patient Comments: TAKE ONE TABLET BY MOUTH EVERY DAY pregabalin 150 mg capsule 150 mg PO TID Patient Comments: TAKE ONE CAPSULE BY MOUTH THREE TIMES A DAY oxycodone 10 mg tablet 10 mg PO Q6HP PRN (Reason: Pain) Patient Comments: TAKE ONE TABLET BY MOUTH EVERY FOUR HOURS, MAXIMUM OF SIX TABLETS A DAY FOR PAIN Referrals Follow up/Referrals: Shamika Roy APRN [Primary Care Provider] - See instructions Activity Restrictions/Add. Instructions Additional Instructions/Restrictions: Follow-up with primary care provider, take all medications as prescribed, take insulin as prescribed, good p.o. intake with fluids and solid foods, return to the emergency department with any new or worsening signs or symptoms. Clinical Impressions Clinical Impression: Sinusitis, Upper respiratory infection, Hyperglycemia Instructions Patient Instructions: DI for Sinusitis, DI for Acute Bronchitis Print Language Print Language: Georgian Discharge ED Provider: Beau Shen General Adult HPI <MALCOLM Mcconnell - Last Filed: 12/09/23 17:36> General Chief complaint: Upper Respiratory Infection Stated complaint: weakness, soa Time Seen by Provider: 12/09/23 14:49 Mode of Arrival: Wheelchair Source of Information: Patient Limitations: No Limitations Description of Symptoms (Recalled from ER Triage Doc. by RN): PT WITH COVID DIAGNOSIS 12/05/23. PT REPORTS SYMPTOMS ARE NOT IMPROVED. REPORTS COUGH, CONGESTION, DIZZINESS AND SHORTNESS OF BREATH. REPORTS DECREASED INTAKE AND NO BM X 1 WEEK History of Present Illness HPI narrative: This is a 48-year-old male who presents to the emergency department with shortness of breath, chest tightness, productive subacute, cough, myalgias, generalized weakness and fatigue, constipation, and generalized just not feeling well . Patient was seen in the emergency department on 12/05/2023, was diagnosed with COVID-19, had negative cardiac workup, negative chest x-ray. Patient denies any other acute symptomatology, such as abdominal pain, nausea, vomiting, diarrhea, urinary type symptomatology, unless stated above, other past medical history consistent with congenital basilar artery defect, status post multiple CVA, with some left-sided residual deficits, some cognitive impairment, uncontrolled type 2 diabetes, diabetic polyneuropathy, hyperlipidemia. Onset (ago): week(s) Related Data Home Medications ?Medication ?Instructions ?Recorded ?Confirmed hydroxyzine HCl 25 mg tablet 25 mg PO NEEDED PRN Anxiety 08/15/22 11/03/23 levetiracetam 750 mg tablet 1,500 mg PO BID seizure 08/15/22 11/03/23 lorazepam 1 mg tablet 1 mg PO TID Anxiety 08/15/22 11/03/23 losartan 50 mg tablet 100 mg PO DAILY Hypertension 08/15/22 11/03/23 metoprolol succinate 50 mg 50 mg PO DAILY Hypertension 08/15/22 11/03/23 tablet,extended release 24 hr oxycodone 10 mg tablet 10 mg PO Q6HP PRN Pain 08/15/22 11/03/23 pregabalin 150 mg capsule 150 mg PO TID Tremors 08/15/22 11/03/23 rosuvastatin 10 mg tablet 10 mg PO DAILY Cholesterol 08/15/22 11/03/23 topiramate 25 mg tablet 25 mg PO HS Headache 08/15/22 11/03/23 insulin glargine 100 unit/mL 100 unit SQ HS 04/14/23 11/03/23 subcutaneous solution (Lantus U-100 Insulin) clopidogrel 75 mg tablet (Plavix) 75 mg PO DAILY 05/06/23 11/03/23 fenofibrate nanocrystallized 48 mg mg PO 05/06/23 11/03/23 tablet folic acid 400 mcg tablet PO 05/06/23 11/03/23 glucagon 1 mg solution for 1 mg SQ Q20M PRN 05/06/23 11/03/23 injection insulin aspart U-100 100 unit/mL 1 sliding scale dose SQ 05/06/23 11/03/23 subcutaneous solution (Novolog USEASDIRECTD U-100 Insulin aspart) insulin syringe-needle U-100 1 mL #10 ea 05/06/23 11/03/23 31 gauge x 5/16 (BD Insulin Syringe Ultra-Fine) pantoprazole 20 mg tablet,delayed 20 mg PO DAILY 05/06/23 11/03/23 release (Protonix) potassium chloride 10 mEq 10 meq PO DAILY 05/06/23 11/03/23 capsule,extended release trazodone 50 mg tablet mg PO 05/06/23 11/03/23 baclofen 10 mg tablet 10 mg PO Q6H PRN 06/17/23 11/03/23 methocarbamol 750 mg tablet 750 mg PO Q6H 06/17/23 11/03/23 Previous Rx's ?Medication ?Instructions ?Recorded levocetirizine 5 mg tablet (Xyzal) 5 mg PO DAILY #30 tabs 05/15/23 amoxicillin 875 mg-potassium 1 tab PO BID 7 days #14 tabs 12/09/23 clavulanate 125 mg tablet Allergies Allergy/AdvReac Type Severity Reaction Status Date / Time aspirin Allergy Severe Anaphylaxis Verified 11/03/23 10:34 ibuprofen [From Motrin] Allergy Severe Anaphylaxis Verified 11/03/23 10:34 naproxen [From Aleve] Allergy Severe Anaphylaxis Verified 11/03/23 10:34 metoclopramide [From Reglan] AdvReac Intermediate Agitated Verified 11/03/23 10:34 midazolam [From Versed] AdvReac Intermediate Agitated Verified 11/03/23 10:34 PFSH <MALCOLM Mcconnell - Last Filed: 12/09/23 17:36> [facility] Disclaimer: The information contained in this section may have been updated after the patient was seen, as this information can be updated by other users. Medical History Skin induration Deviated septum Right maxillary sinus opacification Headache Chronic sinusitis Right sided facial pain Pain due to onychomycosis of toenail Neuropathy involving both lower extremities Bilateral foot pain Nail fungus Social History Smoking Status: Current every day smoker alcohol intake: never current occupational status: other Travel in the last 8 weeks: None <MALCOLM Mcconnell - Last Filed: 12/09/23 17:36> ROS Obtained: Yes All systems reviewed & no additional complaints except as documented Physical Exam <MALCOLM Mcconnell - Last Filed: 12/09/23 17:36> General General appearance: alert, in no apparent distress and anxious Head Head exam: atraumatic and normocephalic Eye Eye exam: Present PERRL and EOMI ENT ENT exam: Present mucous membranes moist Neck Neck exam: Present normal inspection Chest Chest inspection: Present normal inspection and symmetric chest wall rise Respiratory Respiratory exam: Present wheezes; Absent respiratory distress, accessory muscle use or prolonged expiratory phase Cardiovascular Cardiovascular exam: Present regular rate and normal rhythm Abdominal Exam Abdominal exam: Present soft; Absent tenderness, guarding, rebound or rigidity Extremities Exam Extremities exam: Present normal inspection Neurological Exam Neurological exam: Present alert and oriented X3 Psychiatric Psychiatric exam: Present normal affect Skin Skin exam: Present warm and dry Medical Decision Making <MALCOLM Mcconnell - Last Filed: 12/09/23 17:36> Medical Records Medical records reviewed: Yes I reviewed the patient's medical records. Screening: Per USPSTF and CDC recommendations, given the prevalence of disease in our region, it is our hospital?s policy to screen for HIV and viral Hepatitis for all patients aged 18 and over and those with ongoing risk factors. Len Inquiry Pt receiving controlled substance: No Vital Signs: 12/09/23 14:09 12/09/23 17:50 Temperature 97.5 F L 97.9 F Temperature Source Temporal Artery Scan Oral Pulse Rate 88 Pulse Rate [Radial] 80 Respiratory Rate 18 18 Blood Pressure 130/74 Blood Pressure [Left Arm] 136/76 Blood Pressure Mean [Left Arm] 96 Blood Pressure Source Automatic Cuff Blood Pressure Source [Left Arm] Automatic Cuff Blood Pressure Position Sitting Blood Pressure Position [Left Arm] Sitting 02 Sat by Pulse Oximetry 99 Oxygen Delivery Method Room Air Room Air Lab Data Lab results reviewed: Yes I reviewed the patient's lab results. Lab Results 12/09/23 15:20: WBC 14.1 H, RBC 5.04, Hgb 14.9, Hct 46.1, MCV 91.4, MCH 29.6, MCHC 32.4, RDW 14.1, Plt Count 277, MPV 8.1, Neut % (Auto) 72.2, Lymph % (Auto) 19.7, [place] % (Auto) 5.5, Eos % (Auto) 2.1, Baso % (Auto) 0.5, Neut # (Auto) 10.2 H, Lymph # (Auto) 2.8, [place] # (Auto) 0.8, Eos # (Auto) 0.3, Baso # (Auto) 0.1, D-Dimer 0.35, Sodium 136, Potassium 4.4, Chloride 106, Carbon Dioxide 24, Anion Gap 10.4, BUN 12, Creatinine 1.20, Estimated Creat Clear 109, Estimated GFR 64, Est GFR ( Amer) 78, Glucose 397 H, Calcium 9.3, Magnesium 1.9, Total Bilirubin 0.6, AST 26, ALT 24, Alkaline Phosphatase 68, Troponin I < 0.01, NT-Pro-B Natriuret Pep 92.0, Total Protein 7.7, Albumin 4.2, Globulin 3.5 H, Albumin/Globulin Ratio 1.2 12/09/23 15:29: VBG pH 7.34, VBG pCO2 39.1, VBG pO2 52.2 H, VBG HCO3 20.8 L, VBG Total CO2 22.0 L, VBG O2 Saturation 88.4 H, VBG Base Excess -4.9 L, VBG Lactic Acid 2.6 H 12/09/23 15:20 12/09/23 15:20 Orders (Tests/Meds): ED MEDICATIONS Discontinued Medications Generic Name Dose Route Start Last Admin Trade Name Freq PRN Reason Stop Dose Admin Acetaminophen 500 mg 12/09/23 16:49 12/09/23 17:01 Acetaminophen 500mg Tab PO 12/09/23 16:50 500 mg ONCE ONE Administration Dexamethasone Sodium Phosphate 10 mg 12/09/23 16:54 12/09/23 17:01 Dexamethasone 4mg/Ml 1ml Vial IV 12/09/23 16:55 10 mg ONCE ONE Administration Insulin Human Regular 5 unit 12/09/23 16:56 12/09/23 17:11 Insulin Human Regular 100 Units/Ml 10ml Vial 0.05 unit/kg (5 unit) 12/09/23 16:57 5 unit IV Administration ONCE ONE Sodium Chloride 10 ml 12/09/23 15:28 Sodium Chloride 0.9% 10ml Flush Syringe IV 01/08/24 15:27 NEEDED PRN Maintain IV Site ORDERS Category Date Time Status CT chest wo con Stat Cat Scan 12/09/23 15:[address] head/brain wo con Stat Cat Scan 12/09/23 15:02 Completed Complete Blood Count Auto Diff Stat Lab 12/09/23 15:20 Completed Comprehensive Metabolic Panel Stat Lab 12/09/23 15:20 Completed D-Dimer Stat Lab 12/09/23 15:20 Completed Lactic Acid Follow Up (RFLX 1) Stat Lab 12/09/23 19:33 Ordered Magnesium Stat Lab 12/09/23 15:20 Completed NT Pro Brain Natriuretic Pep. Stat Lab 12/09/23 15:20 Completed Troponin I Stat Lab 12/09/23 15:20 Completed Venous Blood Gas Stat RT 12/09/23 15:29 Completed Medical Decision Narrative: 48-year-old male presents emergency department with chest tightness, productive cough, recent COVID-19 diagnosis, constipation, fatigue myalgia, differential diagnose include but not limited to, prolonged viral syndrome, COVID-19, interstitial pneumonia, cardiac arrhythmia, electrolyte disturbance, acute dehydration. Obtain CBC CMP D-dimer, mag level, EKG, proBNP, troponin, CT head, and CT brain without contrast further evaluate/characterization. VBG pH within normal limits, O2 within normal limits, bicarb is decreased at 20.8, venous lactic acid level is elevated 2.6 otherwise unremarkable VBG CMP is notable for potassium at 397, patient does have history of uncontrolled diabetes, otherwise unremarkable CMP, no anion gap, no other electrolyte disturbance Troponin and proBNP within normal limits CBC is notable for leukocytosis of 14.1 which is elevated from 4 days ago Segmental neutrophils are elevated at 10.2 D-dimer is negative at 0.35 thus PE excluded. The patient CT head without contrast along the corresponding radiologic report, no acute intracranial abnormality or obvious mass, atrophy and chronic ischemic white matter changes above, new mucoperiosteal thickening of the left ethmoid and maxillary sinuses consistent with sinusitis. I reviewed the patient's CT of the chest without contrast along with corresponding radiologic report, unremarkable chest examination. Will give 500 mg Tylenol p.o. for pain. Discussed this patient's case with Dr. Shen the attending physician, since patient is dealing with prolonged viral syndrome, will give 10 mg IV dexamethasone inflammatory response, also give 5 units of IV insulin, patient tells me that he has not been eating appropriately, and drinking sugary drinks , to keep his sugar up, counseled him on good insulin use and good p.o. intake. Patient voiced understanding. Upon reassessment patient feels better, let to be discharged home to self-care, I do think the leukocytosis is somewhat reactive, patient has no abdominal pain no nausea no vomiting, recommend [id number] medication for constipation, patient be discharged home to self-care, I will treat for subacute/chronic sinusitis with Augmentin 875 mg p.o. for 7 days, strict ED return precautions given to the patient at bedside, patient was understanding of the current treatment plan/discharge plan, patient follow-up with PCP as directed. Patient has remained hemodynamically stable throughout his time in the emergency department, imaging studies negative, remainder laboratory studies negative, <Beau Shen MD - Last Filed: 12/09/23 19:38> Vital Signs: 12/09/23 14:09 12/09/23 17:50 Temperature 97.5 F L 97.9 F Temperature Source Temporal Artery Scan Oral Pulse Rate 88 Pulse Rate [Radial] 80 Respiratory Rate 18 18 Blood Pressure 130/74 Blood Pressure [Left Arm] 136/76 Blood Pressure Mean [Left Arm] 96 Blood Pressure Source Automatic Cuff Blood Pressure Source [Left Arm] Automatic Cuff Blood Pressure Position Sitting Blood Pressure Position [Left Arm] Sitting 02 Sat by Pulse Oximetry 99 Oxygen Delivery Method Room Air Room Air Lab Data Lab Results 12/09/23 15:20: WBC 14.1 H, RBC 5.04, Hgb 14.9, Hct 46.1, MCV 91.4, MCH 29.6, MCHC 32.4, RDW 14.1, Plt Count 277, MPV 8.1, Neut % (Auto) 72.2, Lymph % (Auto) 19.7, [place] % (Auto) 5.5, Eos % (Auto) 2.1, Baso % (Auto) 0.5, Neut # (Auto) 10.2 H, Lymph # (Auto) 2.8, [place] # (Auto) 0.8, Eos # (Auto) 0.3, Baso # (Auto) 0.1, D-Dimer 0.35, Sodium 136, Potassium 4.4, Chloride 106, Carbon Dioxide 24, Anion Gap 10.4, BUN 12, Creatinine 1.20, Estimated Creat Clear 109, Estimated GFR 64, Est GFR ( Amer) 78, Glucose 397 H, Calcium 9.3, Magnesium 1.9, Total Bilirubin 0.6, AST 26, ALT 24, Alkaline Phosphatase 68, Troponin I < 0.01, NT-Pro-B Natriuret Pep 92.0, Total Protein 7.7, Albumin 4.2, Globulin 3.5 H, Albumin/Globulin Ratio 1.2 12/09/23 15:29: VBG pH 7.34, VBG pCO2 39.1, VBG pO2 52.2 H, VBG HCO3 20.8 L, VBG Total CO2 22.0 L, VBG O2 Saturation 88.4 H, VBG Base Excess -4.9 L, VBG Lactic Acid 2.6 H Orders (Tests/Meds): ED MEDICATIONS Discontinued Medications Generic Name Dose Route Start Last Admin Trade Name Jed PRN Reason Stop Dose Admin Acetaminophen 500 mg 12/09/23 16:49 12/09/23 17:01 Acetaminophen 500mg Tab PO 12/09/23 16:50 500 mg ONCE ONE Administration Dexamethasone Sodium Phosphate 10 mg 12/09/23 16:54 12/09/23 17:01 Dexamethasone 4mg/Ml 1ml Vial IV 12/09/23 16:55 10 mg ONCE ONE Administration Insulin Human Regular 5 unit 12/09/23 16:56 12/09/23 17:11 Insulin Human Regular 100 Units/Ml 10ml Vial 0.05 unit/kg (5 unit) 12/09/23 16:57 5 unit IV Administration ONCE ONE Sodium Chloride 10 ml 12/09/23 15:28 Sodium Chloride 0.9% 10ml Flush Syringe IV 01/08/24 15:27 NEEDED PRN Maintain IV Site ORDERS Category Date Time Status CT chest wo con Stat Cat Scan 12/09/23 15:[address] head/brain wo con Stat Cat Scan 12/09/23 15:02 Completed Complete Blood Count Auto Diff Stat Lab 12/09/23 15:20 Completed Comprehensive Metabolic Panel Stat Lab 12/09/23 15:20 Completed D-Dimer Stat Lab 12/09/23 15:20 Completed Lactic Acid Follow Up (RFLX 1) Stat Lab 12/09/23 19:33 Ordered Magnesium Stat Lab 12/09/23 15:20 Completed NT Pro Brain Natriuretic Pep. Stat Lab 12/09/23 15:20 Completed Troponin I Stat Lab 12/09/23 15:20 Completed Venous Blood Gas Stat RT 12/09/23 15:29 Completed ECG Data Tracing #1: I reviewed this ECG and interpreted as documented below: Sinus rhythm [address] or T wave changes diagnostic of STEMI criteria. [place] 183, QRS 89, QTc 408. Normal axis Medical Decision Narrative: 48-year-old male presents emergency department with chest tightness, productive cough, recent COVID-19 diagnosis, constipation, fatigue myalgia, differential diagnose include but not limited to, prolonged viral syndrome, COVID-19, interstitial pneumonia, cardiac arrhythmia, electrolyte disturbance, acute dehydration. Obtain CBC CMP D-dimer, mag level, EKG, proBNP, troponin, CT head, and CT brain without contrast further evaluate/characterization. VBG pH within normal limits, O2 within normal limits, bicarb is decreased at 20.8, venous lactic acid level is elevated 2.6 otherwise unremarkable VBG CMP is notable for potassium at 397, patient does have history of uncontrolled diabetes, otherwise unremarkable CMP, no anion gap, no other electrolyte disturbance Troponin and proBNP within normal limits CBC is notable for leukocytosis of 14.1 which is elevated from 4 days ago Segmental neutrophils are elevated at 10.2 D-dimer is negative at 0.35 thus PE excluded. The patient CT head without contrast along the corresponding radiologic report, no acute intracranial abnormality or obvious mass, atrophy and chronic ischemic white matter changes above, new mucoperiosteal thickening of the left ethmoid and maxillary sinuses consistent with sinusitis. I reviewed the patient's CT of the chest without contrast along with corresponding radiologic report, unremarkable chest examination. Will give 500 mg Tylenol p.o. for pain. Discussed this patient's case with Dr. Shen the attending physician, since patient is dealing with prolonged viral syndrome, will give 10 mg IV dexamethasone inflammatory response, also give 5 units of IV insulin, patient tells me that he has not been eating appropriately, and drinking sugary drinks , to keep his sugar up, counseled him on good insulin use and good p.o. intake. Patient voiced understanding. Upon reassessment patient feels better, let to be discharged home to self-care, I do think the leukocytosis is somewhat reactive, patient has no abdominal pain no nausea no vomiting, recommend [id number] medication for constipation, patient be discharged home to self-care, I will treat for subacute/chronic sinusitis with Augmentin 875 mg p.o. for 7 days, strict ED return precautions given to the patient at bedside, patient was understanding of the current treatment plan/discharge plan, patient follow-up with PCP as directed. Patient has remained hemodynamically stable throughout his time in the emergency department, imaging studies negative, remainder laboratory studies negative. Because patient at baseline without signs or symptoms of clinical decompensation, deemed appropriate for discharge. Results were relayed to patient who voiced understanding and were agreeable to outpatient management and follow up. I discussed my clinical impression with patient and answered all questions. At this time, the evidence for any other entities in the differential is insufficient to warrant any further testing or ED observation. This was explained as well. Advisory was given that persistent or worsening symptoms require further evaluation. I confirmed the understanding of this discussion. I was consulted by the TONIE, and we discussed the complexity of the problems being addressed. I approved the treatment and management plan for this patient's care in the Emergency Department, thus performing a substantive portion of the medical decision making. Beau Shen MD Critical Care <MALCOLM Mcconnell - Last Filed: 12/09/23 17:36> Critical Care Time Critical Care Time: No
--- NOTE | 2023-12-09 15:02 | CT_ITS ---
FINAL REPORT TECHNIQUE: Noncontrast exam This study was performed with techniques to keep radiation doses as low as reasonably achievable, (ALARA). Individualized dose reduction techniques using automated exposure control or adjustment of mA and/or kV according to the patient''s size were employed. CLINICAL HISTORY: Dizzy, AMS COMPARISON: 08/15/2022 FINDINGS: Mild to moderate atrophy and chronic ischemic white matter changes are noted. 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 No cortical edema is present. There is no mass or hemorrhage. Ventricles are normal. Bone windows show no skull fracture or obvious obstructive lesion. There is new mucoperiosteal thickening in the left ethmoid and maxillary sinuses, consistent with sinusitis. IMPRESSION: No acute intracranial abnormality or obvious mass. Atrophy and chronic ischemic white matter changes as above. New mucoperiosteal thickening in the left ethmoid and maxillary sinuses consistent with sinusitis. Reviewed, Interpreted and Dictated by Omari Tabares MD Transcribed by Ronna Carreno Authenticated and [facility]
--- NOTE | 2023-12-09 15:02 | CT_ITS ---
FINAL REPORT CLINICAL HISTORY: SOA, COMPARISON: None FINDINGS: CT CHEST without contrast COMPARISON: None . TECHNIQUE: Axial CT without contrast This study was performed with techniques to keep radiation doses as low as reasonably achievable, (ALARA). Individualized dose reduction techniques using automated exposure control or adjustment of mA and/or kV according to the patient's size were employed. FINDINGS: No acute lung disease is present . No pleural or pericardial effusion is seen . No adenopathy or mass lesion is present . IMPRESSION: Unremarkable CT of the chest without contrast. This study was performed using automated techniques to achieve radiation exposure as low as reasonably achievable Reviewed, Interpreted and Dictated by Omari Tabarse MD Transcribed by Ronna Carreno Authenticated and . [facility]
--- NOTE | 2023-12-09 15:13 | ECG_ITS ---
APPROVED REPORT Exam: Resting ECG HR:76 bpm ECG Measurements Heart Rate 76 AXES IA 183 P 52 QRSd 89 QRS 16 QT 378 T 71 QTc 408 Conclusion SINUS RHYTHM Electronically signed by : AMISHA GARY, 12/09/2023 21:14:26
[2023-12-09 15:33] LABS: Lactate Venous 2.6 mmol/L (0.4-2.0); VBG Base Excess -4.9 mmol/L (-2.4-2.3); VBG HCO3 20.8 mmol/L (23-30); VBG Oxygen Saturation 88.4 % (50-70); VBG PCO2 39.1 mmol/L (35-51); VBG PH 7.34 mmol/L (7.31-7.41); VBG PO2 52.2 mmol/L (28-40)
--- NOTE | 2023-12-09 15:38 | PC.NURSE ---
PT GONE TO CT VIA WHEEL CHAIR
[2023-12-09 15:47] LABS: Albumin Level 4.2 g/dl (3.5-5.0); Chloride 106 mmol/L (98-107); Potassium 4.4 mmoL/L (3.5-5.1); Sodium 136 mmol/L (136-145)
[2023-12-09 15:49] LABS: Alanine Aminotransferase 24 U/L (12-78); Alkaline Phosphatase 68 U/L (38-126); Anion Gap 10.4 mEq/L (5-15); Aspartate Amino Transferase 26 U/L (17-59); Bilirubin,Total 0.6 mg/dl (0.2-1.3); Blood Urea Nitrogen 12 mg/dl (9-20); Carbon Dioxide 24 mmol/L (22.0-30.0); Creatinine Clearance Estimated 109 mL/min (50-200); Estimated Glomerular Filt Rate 64 ml/min (>60); GFR (African American) 78 ML/MIN (>60)
[2023-12-09 15:50] LABS: Albumin/Globulin Ratio 1.2 (1.1-1.8); Calcium 9.3 mg/dl (8.4-10.2); Globulin 3.5 g/dL (1.3-3.2); Glucose 397 mg/dl (74-100); Magnesium 1.9 mg/dl (1.6-2.3); Total Protein,Serum 7.7 g/dl (6.3-8.2)
[2023-12-09 16:02] LABS: Troponin I < 0.01 ng/ml (0.00-0.034)
[2023-12-09 16:14] LABS: Basophils # 0.1 K/mm3 (0-0.2); Basophils % 0.5 % (0.1-2.0); Eosinophils # 0.3 K/mm3 (0.0-0.4); Eosinophils % 2.1 % (0.1-12.0); Hematocrit 46.1 % (42.0-52.0); Hemoglobin 14.9 g/dL (14.1-18.0); Lymphocytes # 2.8 K/mm3 (0.7-4.5); Lymphocytes % 19.7 % (10-50); Mean Corpuscular HGB Conc 32.4 g/dL (31.8-35.4); Mean Corpuscular Hemoglobin 29.6 pg (27.0-31.2); Mean Corpuscular Volume 91.4 fl (80-94); Mean Platelet Volume 8.1 fl (7.4-10.4); Monocytes # 0.8 K/mm3 (0.1-1.0); Monocytes % 5.5 % (1.7-9.3); Neutrophils # 10.2 K/mm3 (1.8-7.8); Neutrophils % 72.2 % (37.0-80.0); Platelet Count 277 K/mm3 (142-424); Red Blood Count 5.04 M/mm3 (4.60-6.20); Red Cell Distribution Width 14.1 % (11.5-17.5); White Blood Count 14.1 K/mm3 (4.8-10.8)
[2023-12-09 16:24] LABS: D-Dimer 0.35 ug/mL (0.0-0.5)
[2023-12-09] MEDS: ACETAMINOPHEN 500MG TAB 500 MG PO (17:01)
[2023-12-09] MEDS: DEXAMETHASONE 4MG/ML 1ML VIAL 10 MG IV (17:01)
--- NOTE | 2023-12-09 17:01 | PC.NURSE ---
[facility] AT BEDSIDE TO UPDATE PT
[2023-12-09] MEDS: INSULIN HUMAN REGULAR 100 UNITS/ML 10ML VIAL 5 UNIT IV (17:11)
[2023-12-09 17:50] VITALS: BP 130/74; PULSE 88; RESP 18; TEMP 36.6; O2SAT 95
[2023-12-09 19:33] LABS: Reflex Lactic Add Lactic Reflex
== END 2023-12-09 17:50 | disposition home or self-care (01) ==
PROVIDERS: Physician Assistant; Emergency Provider Emergency Medicine; PCP Nurse Practitioner
DX: E11.65 Type 2 diabetes mellitus with hyperglycemia (principal); J01.90 Acute sinusitis, unspecified; R06.02 Shortness of breath; R05.9 Cough, unspecified; Z79.4 Long term (current) use of insulin
CPT/HCPCS: 70450; 71250; 80053; 82803; 83735; 83880; 84484; 85025; 85378; 93005; 96374; 99285; J1100

== ENCOUNTER 2024-01-13 10:17 | Day surgery (SDC) | payer MEDICARE, MEDICAID, SELFPAY ==
[2024-01-12 10:29] VITALS: BMI 30.3
--- NOTE | 2024-01-13 10:56 | P.PCN_ITS ---
Procedure: Date: 01/13/24 Patient Date of :: 1975 Procedure Performed:: Colonoscopy (aborted) Indications:: History of polyps Recent positive Cologuard Performing Provider:: Adrian Pfeiffer MD Referring Provider:: . Sedation:: Monitored anesthesia care Procedure:: After informed consent was obtained the patient was taken to the endoscopy suite. Sedation ensued after the patient was transferred to the left lateral decubitus position. Pulse, blood pressure, and oxygen saturation were monitored throughout the procedure. Digital rectal exam revealed no significant abnormality. The colonoscope was placed in position. The distal colon was evaluated. Bowel preparation was very poor and visualization was limited. Significant tortuosity also noted. The colonoscopy was advanced to the transverse colon with some difficulty. Additional advancement was deemed unwarranted and unsafe as visualization was becoming increasingly limited. The colonoscope was carefully removed and the patient was transferred to recovery in stable condition. Please see findings and specimens below for detail. Findings:: Bowel preparation poor Colonoscopy secondary to exceedingly poor preparation Specimens:: None Recommendations:: The patient has known gastroparesis and constipation. Due to poor preparation (in addition to history of polyps and recent positive Cologuard) a short-term repeat colonoscopy is warranted. A gastroenterology consultation will be o rdered and repeat colonoscopy will be deferred to their service. Complications:: Poor preparation. Colonoscopy aborted. Estimated blood obtained (mL): 0 Colonoscopy Component Colonoscopy Component Was a colonoscopy performed during today's procedure?: Yes Recommended follow up colonoscopy of at least 10 years?: No If no, follow up colonoscopy recommended in ___ years?: (See above) Reason for not recommending >/= 10 yr follow-up interval?: (See above)
[2024-01-13 10:57] VITALS: BP 121/92; PULSE 61; RESP 18; TEMP 36.6; O2SAT 98
--- NOTE | 2024-01-13 11:18 | P.PNANES_ITS ---
[facility] Disclaimer: The information contained in this section may have been updated after the patient was seen, as this information can be updated by other users. Medical History History of tonsillitis Diabetes CVA (cerebral vascular accident) Skin induration Deviated septum Right maxillary sinus opacification Headache Chronic sinusitis Right sided facial pain Pain due to onychomycosis of toenail Neuropathy involving both lower extremities Bilateral foot pain Nail fungus Surgical History History of back surgery History of colon resection History of appendectomy History of laparotomy Family History Other Family history of diabetes mellitus Social History (Updated 01/13/24 @ 10:58 by Lexie Mendoza RN) Smoking Status: Current every day smoker alcohol intake: never substance use type: denies use current occupational status: retired Travel in the last 8 weeks: None [facility] Anesthesia Checklist Patient Identification Patient Identification: Arm Band Structural Data Admitted From: Home Planned Operative Procedure/s: Colonoscopy Consent for Planned Operative Procedure(s) Verified: Yes Verified Documents: Surgical Consent and History and Physical NPO Status Verified Time NPO: 09:15 (coffee) Additional verifications Anesthesia Reactions: No Airway Assessment Mallampati Score:: Class II C-Spine Mobility Assessed: Yes TMJ Mobility Assessed: Yes Dentition: Good Dentition Neurological Assessment Level of Consciousness: Awake, Alert and Appropriate Anesthesia Plan Anesthesia Risk discussed: Yes Anesthesia Plan: Verified ASA Class: III Anesthesia Type: MAC
[2024-01-13 11:25] VITALS: O2SAT 98
[2024-01-13 11:30] LABS: POC Glucose,Bedside 220 (70-110)
[2024-01-13 11:48] VITALS: BP 128/91; PULSE 725; RESP 18; TEMP 36.4; O2SAT 98
[2024-01-13 11:58] VITALS: BP 110/59; PULSE 75; RESP 18; O2SAT 96
[2024-01-13 12:08] VITALS: BP 105/61; PULSE 71; RESP 18; O2SAT 97
[2024-01-13 12:18] VITALS: BP 107/62; PULSE 72; RESP 18; O2SAT 98
== END 2024-01-13 12:18 | disposition home or self-care (01) ==
PROVIDERS: PCP Nurse Practitioner; Visit Provider Surgery
PROC: 0DJD8ZZ Inspection of Lower Intestinal Tract, Via Natural or Artificial Opening Endoscopic (ICD-10-PCS; CPT 45378; principal; 2024-01-13 11:30)
DX: R19.5 Other fecal abnormalities (principal); Z86.0100 Personal history of colon polyps, unspecified; E11.8 Type 2 diabetes mellitus with unspecified complications; Z79.4 Long term (current) use of insulin; Z53.8 Procedure and treatment not carried out for other reasons
CPT/HCPCS: 45378; 82962

== ENCOUNTER 2024-02-27 12:56 | Emergency (ER) | payer MEDICARE, MEDICAID, SELFPAY ==
[2024-02-27 12:57] VITALS: BP 154/100; PULSE 102; RESP 20; TEMP 36.6; O2SAT 99; BMI 27.0
--- NOTE | 2024-02-27 13:02 | ED_ITS ---
Discharge Plan Disposition Patient Disposition: Home, Self-Care Condition: Good Prescriptions Prescriptions: No Action potassium chloride 10 mEq capsule, extended release 10 meq PO DAILY trazodone 50 mg tablet 50 mg PO HS Patient Comments: TAKE 1 TABLET BY MOUTH EVERY NIGHT AT BEDTIME clopidogrel [Plavix] 75 mg tablet 75 mg PO DAILY folic acid 400 mcg tablet 400 mg PO DAILY Patient Comments: TAKE 1 TABLET BY MOUTH ONCE DAILY pantoprazole [Protonix] 20 mg tablet,delayed release (DR/EC) 20 mg PO DAILY PRN (Reason: Heartburn) insulin aspart U-100 [Novolog U-100 Insulin aspart] 100 unit/mL solution 1 sliding scale dose SQ USEASDIRECTD (DME) insulin syringe-needle U-100 [BD Insulin Syringe Ultra-Fine] 1 mL 31 gauge x 5/16 syringe See Rx Instructions .ROUTE .MEDSUPPLY Qty: 10 Patient Comments: USE DIRECTED SUBCUTANEOUS FOUR TIMES DAILY Rx Instructions: As directed glucagon 1 mg recon soln 1 mg SQ Q20M PRN (Reason: .) Rx Instructions: until target blood sugar attained fenofibrate nanocrystallized 48 mg tablet 48 mg PO DAILY baclofen 10 mg tablet 10 mg PO Q6H PRN (Reason: .) ondansetron 4 mg tablet,disintegrating 4 mg PO Q8H PRN (Reason: nausea and vomiting) Qty: 60 0RF Rx Instructions: Please take 1 tablet orally or sublingual every 8 hours as needed nausea Movantik 25 mg tablet 25 mg PO DAILY Qty: 90 2RF Rx Instructions: must be taken on empty stomach; no food 1 hr after or 2-3 hrs before dose insulin glargine [Lantus U-100 Insulin] 100 unit/mL solution 90 unit SQ BID Patient Comments: ADMINISTER 50 UNITS UNDER THE SKIN TWICE DAILY FOR 30 DAYS losartan 50 mg tablet 100 mg PO DAILY Patient Comments: TAKE ONE TABLET BY MOUTH DAILY metoprolol succinate 50 mg tablet extended release 24 hr 50 mg PO DAILY Patient Comments: TAKE ONE TABLET BY MOUTH EVERY DAY topiramate 25 mg tablet 25 mg PO HS Patient Comments: TAKE ONE TABLET BY MOUTH AT BEDTIME hydroxyzine HCl 25 mg tablet 25 mg PO NEEDED PRN (Reason: Anxiety) Patient Comments: TAKE ONE TABLET BY MOUTH THREE TIMES A DAY NEEDED levetiracetam 750 mg tablet 1,500 mg PO BID Patient Comments: TAKE TWO TABLETS BY MOUTH TWO TIMES A DAY lorazepam 1 mg tablet 1 mg PO TID Patient Comments: TAKE ONE TABLET BY MOUTH THREE TIMES A DAY rosuvastatin 10 mg tablet 10 mg PO DAILY Patient Comments: TAKE ONE TABLET BY MOUTH EVERY DAY pregabalin 150 mg capsule 150 mg PO TID Patient Comments: TAKE ONE CAPSULE BY MOUTH THREE TIMES A DAY oxycodone 10 mg tablet 10 mg PO Q4HP PRN (Reason: Pain) Patient Comments: TAKE ONE TABLET BY MOUTH EVERY FOUR HOURS, MAXIMUM OF SIX TABLETS A DAY FOR PAIN meclizine 25 mg Tablet 25 mg PO TID PRN (Reason: Dizziness) promethazine 25 mg Tablet 25 mg PO Q6H PRN (Reason: Nausea) Referrals Follow up/Referrals: Shamika Roy APRN [Primary Care Provider] - See instructions Activity Restrictions/Add. Instructions Additional Instructions/Restrictions: Continue taking Tylenol along with your regular regimen for headache pain. Follow-up with your PCP if there are new issues no improvement or worsening signs or symptoms or return to the ER as needed Clinical Impressions Clinical Impression: Fall Qualifiers: Encounter type: initial encounter Qualified Code(s): W19.XXXA - Unspecified fall, initial encounter Print Language Print Language: Citizen Of [place] Discharge ED Provider: Vickey Lopez General Adult HPI General Chief complaint: Fall Stated complaint: AO 02/27/24- fall hit head Time Seen by Provider: 02/27/24 13:02 History of Present Illness HPI narrative: Patient presents for evaluation of a fall. Patient tripped and fell over a family member falling forward striking his forehead. Patient states that he did lose consciousness. He is complaining of headache neck pain left hip pain. Patient has multiple comorbidities including previous strokes TIAs currently on Plavix history of insulin-dependent type 2 diabetes mellitus, gastroparesis, chronic pain, opiate induced constipation, diabetic foot ulcers, peripheral vascular disease, diabetic neuropathy. He currently denies chest pain shortness of breath fever chills hemoptysis hematochezia melena nausea vomiting diarrhea. He has no focal neurologic complaints Related Data Home Medications ?Medication ?Instructions ?Recorded ?Confirmed hydroxyzine HCl 25 mg tablet 25 mg PO NEEDED PRN Anxiety 08/15/22 02/10/24 levetiracetam 750 mg tablet 1,500 mg PO BID seizure 08/15/22 02/10/24 lorazepam 1 mg tablet 1 mg PO TID Anxiety 08/15/22 02/10/24 losartan 50 mg tablet 100 mg PO DAILY Hypertension 08/15/22 02/10/24 metoprolol succinate 50 mg 50 mg PO DAILY Hypertension 08/15/22 02/10/24 tablet,extended release 24 hr oxycodone 10 mg tablet 10 mg PO Q4HP PRN Pain 08/15/22 02/10/24 pregabalin 150 mg capsule 150 mg PO TID Tremors 08/15/22 02/10/24 rosuvastatin 10 mg tablet 10 mg PO DAILY Cholesterol 08/15/22 02/10/24 topiramate 25 mg tablet 25 mg PO HS Headache 08/15/22 02/10/24 insulin glargine 100 unit/mL 90 unit SQ BID 04/14/23 02/10/24 subcutaneous solution (Lantus U-100 Insulin) clopidogrel 75 mg tablet (Plavix) 75 mg PO DAILY 05/06/23 02/10/24 fenofibrate nanocrystallized 48 mg 48 mg PO DAILY 05/06/23 02/10/24 tablet folic acid 400 mcg tablet 400 mg PO DAILY 05/06/23 02/10/24 glucagon 1 mg solution for 1 mg SQ Q20M PRN . 05/06/23 02/10/24 injection insulin aspart U-100 100 unit/mL 1 sliding scale dose SQ 05/06/23 02/10/24 subcutaneous solution (Novolog USEASDIRECTD U-100 Insulin aspart) insulin syringe-needle U-100 1 mL #10 ea 05/06/23 02/10/24 31 gauge x 5/16 (BD Insulin Syringe Ultra-Fine) pantoprazole 20 mg tablet,delayed 20 mg PO DAILY PRN Heartburn 05/06/23 02/10/24 release (Protonix) potassium chloride 10 mEq 10 meq PO DAILY 05/06/23 02/10/24 capsule,extended release trazodone 50 mg tablet 50 mg PO HS 05/06/23 02/10/24 baclofen 10 mg tablet 10 mg PO Q6H PRN . 06/17/23 02/10/24 meclizine 25 mg tablet 25 mg PO TID PRN Dizziness 01/12/24 02/10/24 promethazine 25 mg tablet 25 mg PO Q6H PRN Nausea 01/12/24 02/10/24 Previous Rx's ?Medication ?Instructions ?Recorded ondansetron 4 mg disintegrating 4 mg PO Q8H PRN nausea and 02/10/24 tablet vomiting #60 tabs naloxegol 25 mg tablet (Movantik) 25 mg PO DAILY #90 tabs 02/11/24 Allergies Allergy/AdvReac Type Severity Reaction Status Date / Time aspirin Allergy Severe Anaphylaxis Verified 02/10/24 10:05 ibuprofen (From Motrin) Allergy Severe Anaphylaxis Verified 02/10/24 10:05 naproxen (From Aleve) Allergy Severe Anaphylaxis Verified 02/10/24 10:05 NSAIDS (Non-Steroidal Allergy Severe Anaphylaxis Verified 02/10/24 10:05 Anti-Inflamma bee venom protein (honey bee) Allergy Anaphylaxis Verified 02/10/24 10:05 metoclopramide (From Reglan) AdvReac Intermediate Agitated Verified 02/10/24 10:05 midazolam (From Versed) AdvReac Intermediate Agitated Verified 02/10/24 10:05 [facility] PFS Disclaimer: The information contained in this section may have been updated after the patient was seen, as this information can be updated by other users. Medical History History of tonsillitis Diabetes CVA (cerebral vascular accident) Skin induration Deviated septum Right maxillary sinus opacification Headache Chronic sinusitis Right sided facial pain Pain due to onychomycosis of toenail Neuropathy involving both lower extremities Bilateral foot pain Nail fungus Surgical History History of back surgery History of colon resection History of appendectomy History of laparotomy Family History Other Family history of diabetes mellitus Social History Smoking Status: Current every day smoker alcohol intake: never substance use type: denies use current occupational status: retired Travel in the last 8 weeks: None caffeine: Yes Have you lived/traveled outside US in past 30 days?: No Contact w/someone who lives/traveled outside US past 30 days?: No Exposure to someone with infectious disease in past 14 days?: No Do you have a fever (greater than 100.4 F or 38 C)?: No Have you tested positive for COVID-19: No Exposed to someone with COVID-19 in past 14 days?: No Do you have a sore throat?: No Do you have a cough?: No Do you have any weakness?: No Do you have any diarrhea?: No Are you experiencing any unusual bleeding?: No Do you have any muscle aches/pain?: No Do you have any abdominal pain?: No Are you experiencing loss of taste or smell?: No Other Medical History Have you received the Pneumonia Vaccine: Yes ROS Obtained: Yes Systems reviewed as appropriate & no additional complaints except as documented Physical Exam General General appearance: alert and in no apparent distress Respiratory Respiratory exam: Present normal lung sounds bilaterally Cardiovascular Cardiovascular exam: Present regular rate Neurological Exam Neurological exam: Present alert and oriented X3 Medical Decision Making Medical Records Medical records reviewed: Yes I reviewed the patient's medical records. Screening: Per USPSTF and CDC recommendations, given the prevalence of disease in our region, it is our hospital?s policy to screen for HIV and viral Hepatitis for all patients aged 18 and over and those with ongoing risk factors. Len Inquiry Pt receiving controlled substance: No Vital Signs: 02/27/24 12:57 02/27/24 13:03 Temperature 97.9 F Temperature Source Oral Pulse Rate 106 H Pulse Rate [Right] 102 H Respiratory Rate 20 Blood Pressure 154/100 H Blood Pressure [Right Arm] 154/100 H Blood Pressure Mean [Right Arm] 118 Blood Pressure Source [Right Arm] Automatic Cuff 02 Sat by Pulse Oximetry 99 97 Oxygen Delivery Method Room Air Room Air Lab Data Lab results reviewed: Yes I reviewed the patient's lab results. Lab Results 02/27/24 13:15: WBC 11.4 H, RBC 5.56, Hgb 16.1, Hct 48.5, MCV 87.4, MCH 29.0, MCHC 33.2, RDW 14.4, Plt Count 206, MPV 8.4, Neut % (Auto) 62.3, Lymph % (Auto) 29.3, [place]ack[place]ord % (Auto) 4.8, Eos % (Auto) 2.5, Baso % (Auto) 1.1, Neut # (Auto) 7.1, Lymph # (Auto) 3.3, [place]ord # (Auto) 0.5, Eos # (Auto) 0.3, Baso # (Auto) 0.1, Sodium 140, Potassium 4.4, Chloride 105, Carbon Dioxide 25, Anion Gap 14.4, BUN 11, Creatinine 1.00, Estimated Creat Clear 116, Estimated GFR 79, Est GFR ( Amer) 96, Glucose 454 H*, Calcium 9.3, Total Bilirubin 0.8, AST 31, ALT 26, Alkaline Phosphatase 78, Total Protein 7.9, Albumin 4.9, Globulin 3.0, Albumin/Globulin Ratio 1.6 02/27/24 13:15 02/27/24 13:15 Orders (Tests/Meds): ED MEDICATIONS Generic Name Dose Route Start Last Admin Trade Name Freq PRN Reason Stop Dose Admin Insulin Human Lispro 15 unit 02/27/24 15:31 Humalog 100 Units/Ml 10ml Vial (Ssi) SUBCUT 02/27/24 15:32 ONCE ONE Discontinued Medications Generic Name Dose Route Start Last Admin Trade Name Freq PRN Reason Stop Dose Admin Acetaminophen 1,000 mg 02/27/24 13:06 02/27/24 13:18 Acetaminophen 1,000mg/100ml Vial IV 02/27/24 13:07 1,000 mg ONCE ONE Administration Hydromorphone HCl 0.5 mg 02/27/24 14:08 02/27/24 14:11 Hydromorphone 2mg/Ml Syringe IV 02/27/24 14:09 0.5 mg ONCE ONE Administration ORDERS Category Date Time Status CT bony pelvis Stat Cat Scan 02/27/24 13:[address] cervical spine wo con Stat Cat Scan 02/27/24 13:[address] head/brain wo con Stat Cat Scan 02/27/24 13:[address] lumbar spine wo con Stat Cat Scan 02/27/24 13:[address] thoracic spine wo con Stat Cat Scan 02/27/24 13:09 Completed CBC w/Auto Diff [Complete Blood Count Auto Diff] Stat Lab 02/27/24 13:15 Completed CMP [Comprehensive Metabolic Panel] Stat Lab 02/27/24 13:15 Completed Medical Decision Narrative: In summary patient is a 48-year-old male who presents to the emergency department for evaluation of fall with positive loss of consciousness. Patient is dynamically stable upon arrival, afebrile. Physical exam is remarkable for tenderness palpation about the cranium midline C-spine however there is no evidence of hematoma contusions abrasions edema. Angy Coma Score is 15 patient is awake alert and oriented person place and circumstance. Cranial nerves II through XII are intact was to exam. Patient also has pain at the left hip but again no contusions abrasions ecchymosis or deformities noted. Patient is neurovascularly intact distally in the bilateral lower extremities.. Differential diagnosis includes concussion versus intracranial hemorrhage versus C-spine injury etc. Initial workup will be conducted with hematologic labs CT scan of the bony skeleton and pelvis. Initial interventions include Tylenol as patient has multiple drug intolerances and is currently on oxycodone 10 mg at baseline. Initial workup reviewed by me shows that his imaging via my informal interpretation shows no acute fracture or processes and his hematologic labs are nonactionable with exception of a glucose of 454 which I will give him 20 units of subcu insulin. Upon repeat evaluation patient reported significant improvement after initial intervention. Given this patient is appropriate for discharge with follow-up with his PCP for further evaluation and care. Critical Care Critical Care Time Critical Care Time: No
[2024-02-27 13:03] VITALS: BP 154/100; PULSE 106; O2SAT 97
--- NOTE | 2024-02-27 13:07 | CT_ITS ---
FINAL REPORT CLINICAL HISTORY: Fell hit head, on Plavix COMPARISON: 12/09/2023 FINDINGS: Axial images of the head were obtained without contrast. Coronal and sagittal reformatted images were also obtained.This study was performed with techniques to keep radiation doses as low as reasonably achievable (ALARA). Individualized dose reduction techniques using automated exposure control or adjustment of mA and/or kV according to the patient's size were employed. There is no evidence of intracranial hemorrhage or mass. The ventricular size is within normal limits. There is no evidence of shift of the midline structures. There is encephalomalacia in the inferior cerebellar hemispheres bilaterally, greater on the right than on the left, consistent with prior infarcts. These are stable since the prior CT of December 08. No abnormal extra axial fluid collection is identified. No skull abnormality is seen on the bone window images. IMPRESSION: No acute intracranial abnormality. Bilateral cerebellar encephalomalacia, also noted on the prior CT of 12/09/2023, stable. Reviewed, Interpreted and Dictated by Angelito Otto III, MD Transcribed by Ronna Carreno Authenticated and . [facility]
--- NOTE | 2024-02-27 13:07 | PC.NURSE ---
Placed pt in c-collar. Cuco Ibanez PAC at bedside
--- NOTE | 2024-02-27 13:09 | CT_ITS ---
FINAL REPORT TECHNIQUE: Axial imaging of the lumbar spine was obtained without contrast. Sagittal and coronal reformatted images were also obtained and reviewed. This study was performed with techniques to keep radiation doses as low as reasonably achievable (ALARA). Individualized dose reduction techniques using automated exposure control or adjustment of mA and/or kV according to the patient's size were employed. CLINICAL HISTORY: trauma, critical injury suspected COMPARISON: None FINDINGS: There is no fracture. The vertebral alignment is normal. A fusion has been performed at the L5-S1 level. Moderate degenerative change is present with multilevel osteophytes and disc bulges. Bilateral neural foraminal narrowing is noted, most severe at the L4-5 level. There is mild central canal stenosis at the L2-3, L3-4, and L4-5 levels. IMPRESSION: Multilevel degenerative change without acute bony abnormality identified. Reviewed, Interpreted and Dictated by Angelito Otto III, MD Transcribed by Ronna Carreno Authenticated and [facility]
--- NOTE | 2024-02-27 13:09 | CT_ITS ---
FINAL REPORT CLINICAL HISTORY: trauma, critical injury suspected COMPARISON: None FINDINGS: Axial CT images of the cervical spine were obtained without contrast. Sagittal and coronal reformatted images were also obtained. This study was performed with techniques to keep radiation doses as low as reasonably achievable (ALARA). Individualized dose reduction techniques using automated exposure control or adjustment of mA and/or kV according to the patient's size were employed. There is no evidence of fracture or dislocation. The bony alignment is normal. Mild degenerative change is present with multilevel osteophytes. There is mild central canal stenosis at the C4-5, see 5 6, and C6-7 levels. There is no evidence of canal stenosis. No paraspinous soft tissue abnormality is seen. Limited images of the upper thorax are unremarkable. IMPRESSION: No acute bony abnormality identified, with mild to moderate degenerative changes as described above. Reviewed, Interpreted and Dictated by Angelito Otto III, MD Transcribed by Ronna Carreno Authenticated and [facility]
--- NOTE | 2024-02-27 13:09 | CT_ITS ---
FINAL REPORT CLINICAL HISTORY: trauma, critical injury suspected COMPARISON: None FINDINGS: Axial CT images of the thoracic spine were obtained without contrast. Sagittal and coronal reformatted images were also obtained. This study was performed with techniques to keep radiation doses as low as reasonably achievable (ALARA). Individualized dose reduction techniques using automated exposure control or adjustment of mA and/or kV according to the patient's size were employed. There is no evidence of fracture. Multiple Schmorl's nodes are identified. Mild and moderate degenerative change is present. The vertebral alignment is normal. There is no evidence of significant canal stenosis. No paraspinous soft tissue abnormality is identified. IMPRESSION: No fracture or acute bony abnormality. No significant central canal stenosis. Reviewed, Interpreted and Dictated by Angelito Otto III, MD Transcribed by Ronna Carreno Authenticated and [facility]
--- NOTE | 2024-02-27 13:10 | CT_ITS ---
FINAL REPORT CLINICAL HISTORY: trauma, critical injury suspected COMPARISON: None FINDINGS: Axial images through the pelvis were performed by computed tomography. Sagittal and coronal reconstruction images were performed. This study was performed with techniques to keep radiation doses as low as reasonably achievable (ALARA). Individualized dose reduction techniques using automated exposure control or adjustment of mA and/or kV according to the patient's size were employed. No fracture is identified. No dislocation identified. Mild degenerative changes are present in both hips. Small chronic calcifications are noted adjacent to the right lesser trochanter. IMPRESSION: Mild degenerative changes as described, without acute bony abnormality. Reviewed, Interpreted and Dictated by Angelito Otto III, MD Transcribed by Ronna Carreno Authenticated and [facility]
--- NOTE | 2024-02-27 13:17 | PC.NURSE ---
PT TO CT
[2024-02-27] MEDS: ACETAMINOPHEN 1,000MG/100ML VIAL 1000 MG IV (13:18)
--- NOTE | 2024-02-27 13:22 | HMH.ITSTN ---
pt stated he was in too much pain for scans at this time; RN aware and taking patient medicine
[2024-02-27 13:31] LABS: Albumin Level 4.9 g/dl (3.5-5.0); Chloride 105 mmol/L (98-107); Potassium 4.4 mmoL/L (3.5-5.1); Sodium 140 mmol/L (136-145)
[2024-02-27 13:34] LABS: Alanine Aminotransferase 26 U/L (12-78); Albumin/Globulin Ratio 1.6 (1.1-1.8); Alkaline Phosphatase 78 U/L (38-126); Anion Gap 14.4 mEq/L (5-15); Aspartate Amino Transferase 31 U/L (17-59); Basophils # 0.1 K/mm3 (0-0.2); Basophils % 1.1 % (0.1-2.0); Bilirubin,Total 0.8 mg/dl (0.2-1.3); Blood Urea Nitrogen 11 mg/dl (9-20); Calcium 9.3 mg/dl (8.4-10.2); Carbon Dioxide 25 mmol/L (22.0-30.0); Creatinine Clearance Estimated 116 mL/min (50-200); Eosinophils # 0.3 K/mm3 (0.0-0.4); Eosinophils % 2.5 % (0.1-12.0); Estimated Glomerular Filt Rate 79 ml/min (>60); GFR (African American) 96 ML/MIN (>60); Hematocrit 48.5 % (42.0-52.0); Hemoglobin 16.1 g/dL (14.1-18.0); Lymphocytes # 3.3 K/mm3 (0.7-4.5); Lymphocytes % 29.3 % (10-50); Mean Corpuscular HGB Conc 33.2 g/dL (31.8-35.4); Mean Corpuscular Volume 87.4 fl (80-94); Mean Platelet Volume 8.4 fl (7.4-10.4); Monocytes # 0.5 K/mm3 (0.1-1.0); Monocytes % 4.8 % (1.7-9.3); Neutrophils # 7.1 K/mm3 (1.8-7.8); Neutrophils % 62.3 % (37.0-80.0); Platelet Count 206 K/mm3 (142-424); Red Blood Count 5.56 M/mm3 (4.60-6.20); Red Cell Distribution Width 14.4 % (11.5-17.5); Total Protein,Serum 7.9 g/dl (6.3-8.2); White Blood Count 11.4 K/mm3 (4.8-10.8)
[2024-02-27 13:35] LABS: Glucose 454 mg/dl (74-100)
--- NOTE | 2024-02-27 13:43 | PC.NURSE ---
Radiology arrived to take the pt to CT. He screamed, it fucking hurts an nobody is helping me. pt also self d/c the CCOLLAR and threw it on the floor.
[2024-02-27] MEDS: HYDROMORPHONE 2MG/ML SYRINGE 0.5 MG IV (14:11)
[2024-02-27] MEDS: humaLOG 100 UNITS/ML 10ML VIAL (SSI) 15 UNIT SUBCUT (15:57)
[2024-02-27 16:01] VITALS: BP 154/100; PULSE 93; RESP 18; TEMP 36.6
== END 2024-02-27 16:03 | disposition home or self-care (01) ==
PROVIDERS: Physician Assistant; Emergency Provider Student in an Organized Health Care Education/Training Program; PCP Nurse Practitioner
DX: S06.9XAA Unspecified intracranial injury with loss of consciousness status unknown, initial encounter (principal); R51.9 Headache, unspecified; M54.2 Cervicalgia; M25.552 Pain in left hip; W01.198A Fall on same level from slipping, tripping and stumbling with subsequent striking against other object, initial encounter; Y93.89 Activity, other specified; Y92.009 Unspecified place in unspecified non-institutional (private) residence as the place of occurrence of the external cause
CPT/HCPCS: 70450; 72125; 72128; 72131; 72192; 80053; 85025; 96372; 96374; 96375; 99284; J0131; J1171

== ENCOUNTER 2024-03-24 14:07 | Outpatient (CLI) | payer MEDICARE, MEDICAID, SELFPAY ==
[2024-03-24 14:46] LABS: Basophils # 0.1 K/mm3 (0-0.2); Basophils % 0.5 % (0.1-2.0); Eosinophils # 0.3 K/mm3 (0.0-0.4); Eosinophils % 2.1 % (0.1-12.0); Hematocrit 44.6 % (42.0-52.0); Hemoglobin 15.6 g/dL (14.1-18.0); Lymphocytes # 3.9 K/mm3 (0.7-4.5); Lymphocytes % 30.5 % (10-50); Mean Corpuscular Hemoglobin 29.5 pg (27.0-31.2); Mean Corpuscular Volume 84.3 fl (80-94); Mean Platelet Volume 10.4 fl (7.4-10.4); Monocytes # 1.1 K/mm3 (0.1-1.0); Monocytes % 8.3 % (1.7-9.3); Neutrophils # 7.5 K/mm3 (1.8-7.8); Neutrophils % 58.4 % (37.0-80.0); Platelet Count 214 K/mm3 (142-424); Red Blood Count 5.29 M/mm3 (4.60-6.20); Red Cell Distribution Width 13.2 % (11.5-17.5); White Blood Count 12.8 K/mm3 (4.8-10.8)
[2024-03-24 14:52] LABS: Hemoglobin A1C 10.3 % (4.0-6.0)
[2024-03-24 15:28] LABS: Alanine Aminotransferase 20 U/L (12-78); Albumin Level 4.6 g/dl (3.5-5.0); Alkaline Phosphatase 68 U/L (38-126); Aspartate Amino Transferase 28 U/L (17-59); Bilirubin,Direct 0.4 mg/dl (0.0-0.4); Bilirubin,Indirect 0.4 mg/dL (0.0-0.9); Bilirubin,Total 0.8 mg/dl (0.2-1.3); Bilirubin,Unconjugated 0.4 mg/dL (0.0-1.1); Blood Urea Nitrogen 10 mg/dl (9-20); Calcium 9.2 mg/dl (8.4-10.2); Carbon Dioxide 26 mmol/L (22.0-30.0); Chloride 103 mmol/L (98-107); Chol/HDL Ratio 2.7 (1-3.5); Cholesterol 90 mg/dl (140-200); Estimated Glomerular Filt Rate 89 ml/min (>60); GFR (African American) 108 ML/MIN (>60); Glucose 190 mg/dl (74-100); HDL Cholesterol 33 mg/dl (40-60); Sodium 140 mmol/L (136-145); Triglycerides 216 mg/dl (30-150); VLDL Cholesterol 43 mg/dL (0-40)
[2024-03-24 15:39] LABS: Direct LDL Cholesterol 31.91 mg/dL (100-129)
[2024-03-24 15:44] LABS: Free T4 (Free Thyroxine) 1.22 ng/dl (0.78-2.19)
[2024-03-24 15:57] LABS: Thyroid Stimulating Hormone 3.31 uIU/mL (0.465-4.68)
== END 2024-03-24 23:59 | disposition home or self-care (01) ==
PROVIDERS: PCP Nurse Practitioner; Visit Provider Internal Medicine
DX: F17.200 Nicotine dependence, unspecified, uncomplicated (principal); R06.09 Other forms of dyspnea; R00.0 Tachycardia, unspecified; E78.5 Hyperlipidemia, unspecified; I10 Essential (primary) hypertension; Z01.810 Encounter for preprocedural cardiovascular examination; Z86.73 Personal history of transient ischemic attack (TIA), and cerebral infarction without residual deficits; R00.2 Palpitations; E11.9 Type 2 diabetes mellitus without complications
CPT/HCPCS: 36415; 80048; 80061; 80076; 83036; 83735; 84439; 84443; 85025; 93225; 93227

== ENCOUNTER 2024-03-26 10:46 | Outpatient (CLI) | payer MEDICARE, MEDICAID, SELFPAY | END 2024-03-26 23:59 | disposition home or self-care (01) | LOC: RT 10:49 | PROVIDERS: PCP Nurse Practitioner; Visit Provider Internal Medicine | DX: R00.2 Palpitations (principal) | CPT/HCPCS: 93270 ==

== ENCOUNTER 2024-04-01 07:42 | Outpatient (CLI) | payer MEDICARE, MEDICAID, SELFPAY ==
--- NOTE | 2024-04-01 | CA_ITS ---
APPROVED REPORT Exam: Pharmacologic Technologist: Marla Diaz Ht: 6 ft 1 in Wt: 223 lbs BSA: 2.25 m2 HR: 79 bpm BP: 124/64 mmHg Medical History Cardiac Risk Factors: Diabetes (non-insulin), Smoking Stress Test Details HR Resting HR: 79 bpm Max Heart Rate (APMHR): 170 bpm Target HR (85% APMHR): 145 bpm Recovery HR: 91 bpm BP Resting BP: 124.0/64.0 mmHg Recovery BP: 110.0/59.0 mmHg ECG Stress ECG Conclusion During lexiscan pt experinced SOB and headache. No CP noted. No arrhythmias noted. Non diagnostic lexiscan. Electronically signed by : Nedra Terrell MD 04/04/2024 15:08:28
--- NOTE | 2024-04-01 07:45 | NM_ITS ---
APPROVED REPORT Exam: Nuclear Stress Test Indication: history of mi, hyn, diabetes, hyperlipidemia, tob use, sob, palpitations, fatigue Patient Location: Outpatient Stress Tech: Marla Diaz NM Tech:MINOO Leger RT(R)(N) Ht: 6 ft 1 in Wt: 220 lbs HR: 79 bpm BP: 124/64 mmHg BSA: 2.24 m2 TID: 1.25 BMI: 29.0 History: history of mi, hyn, diabetes, hyperlipidemia, tob use, sob, palpitations, fatigue Procedure: Patient received 0.4 mg of intravenous Lexiscan, resting heart rate 79 bpm, resting blood pressure 124/64 mmHg, with Lexiscan maximum heart rate achieved was 97 bpm which is % of the maximum predicted heart rate and blood pressure was 109/54 mmHg. With Lexiscan, patient denied any complaint of chest pain. Cardiac Stress and Resting SPECT Images: Cardiac Stress and Resting SPECT images were obtained using technetium 99m Myoview 32.1 mCi stress and 10.83 mCi at rest. Resting and stress imaging in supine and prone positions demonstrate no evidence of fixed or reversible perfusion defects. There is increased transient ischemic dilatation ratio (TID 1.25), suggestive of possible multivessel disease or balanced ischemia. Gated imaging demonstrates normal global and regional LV systolic function. LVEF is calculated at 62%. Conclusion: No evidence of focal fixed or reversible perfusion defects. There is increased transient ischemic dilatation ratio (TID 1.25), suggestive of possible multivessel disease or balanced ischemia. Gated imaging demonstrates normal global and regional LV systolic function. LVEF is calculated at 62%. In the setting of young age, TID on nuclear stress test, and normal LVEF, further evaluation non-invasively with CCTA is suggested prior to proceeding with invasive coronary angiography. Electronically signed by : Nedra Terrell MD 04/04/2024 15:07:02
--- NOTE | 2024-04-01 07:45 | CA_ITS ---
APPROVED REPORT EXAM: Comprehensive 2D, Doppler, and color-flow Echocardiogram Learning Services Coordinator: Paula Hager CRT Ht: 6 ft 1 in Wt: 223lbs BSA: 2.25 BP: 163/92 mmHg Indications: Shortness of Breath, Diabetes, Palpitations, Fatigue, Hyperlipidemia, Hypertension/HDD 2D Dimensions LA Volume 37.60 mL LA Volume Index 16.30 mL/m2 (M/F) 16-34 M-Mode Dimensions RVDd 3.64 cm (0.9-2.6) LA Diam 3.03 cm (1.9-4.0) LVDd 3.22 cm (3.5-5.7) LVDs 2.50 cm (3.5-5.7) IVSd 1.48 cm (0.6-1.1) PWd 1.21 cm (0.6-1.1) EF (Teich) 46.40% FS 22.40% EDV (Teich) 41.60 mL TAPSE 2.00 (<1.7) ESV (Teich) 22.30 mL LV Diastology E Decel Time 333 (160-240 msec) E/A Ratio 0.90 MED A' 7.40 cm/s LAT A' 12.80 cm/s Aortic Valve AO Peak GR. 7.60 mmHg Mitral Valve MV A Velocity 54.0 (40-130 cm/s) E/A Ratio 0.90 Pulmonary Valve PV Peak Velocity 111.0 (50-150 cm/s) Tricuspid Valve TR P. Velocity 143.00 cm/s RAP Estimate 10.00 mmHg RVSP 18.20 mmHg Left Ventricle The left ventricle is normal size. The left ventricular systolic function is normal. The left ventricular ejection fraction is within the normal range. Proximal septal thickening is present. There is normal LV segmental wall motion. The left ventricular diastolic function is normal. LVEF is 55%. Right Ventricle The right ventricle is normal size. The right ventricular systolic function is normal. Atria The left atrium size is normal. The right atrium size is normal. There is no Doppler evidence of interatrial shunt. Aortic Valve The aortic valve opens well. There is no aortic valvular stenosis. No aortic regurgitation. Mitral Valve The mitral valve is normal in structure. No evidence of mitral valve stenosis. Trace mitral regurgitation. Tricuspid Valve Tricuspid valve is grossly normal in structure and function. Trace tricuspid regurgitation. There is insufficient TR jet to estimate RVSP. Pulmonic Valve The pulmonary valve is normal in structure. Trace pulmonic regurgitation. Great Vessels The aortic root is normal in size. The ascending aorta is normal in size. IVC is normal in size and collapses >50% with inspiration. Pericardium There is no pericardial effusion. Other Information Study Quality: Adequate Conclusion Normal biventricular systolic function. No significant valvular stenosis or regurgitation. Electronically signed by : Nedra Terrell MD 04/04/2024 15:21:39
[2024-04-01] MEDS: REGADENOSON 0.4MG/5ML SYRINGE 0.4 MG IV (10:30)
[2024-04-01] MEDS: SODIUM CHLORIDE 0.9% 10ML SYR (RAD ONLY) 10 ML IV ×2 (10:30)
[2024-04-01] MEDS: ISOTOPE MYOVIEW (PER STUDY) 1 DOSE IV (10:30)
== END 2024-04-01 23:59 | disposition home or self-care (01) ==
LOC: RAD 07:45
PROVIDERS: PCP Nurse Practitioner; Visit Provider Internal Medicine
DX: R06.09 Other forms of dyspnea (principal); R00.2 Palpitations; I10 Essential (primary) hypertension; F17.200 Nicotine dependence, unspecified, uncomplicated; R00.0 Tachycardia, unspecified; E78.5 Hyperlipidemia, unspecified; Z86.73 Personal history of transient ischemic attack (TIA), and cerebral infarction without residual deficits
CPT/HCPCS: 78452; 93017; 93018; 93306; A9502; J2785

== ENCOUNTER 2024-04-13 09:06 | Outpatient (CLI) | payer MEDICARE, MEDICAID, SELFPAY ==
--- NOTE | 2024-04-13 09:15 | CT_ITS ---
APPROVED REPORT Auction Assistant: CLINICAL INDICATION Chest Pain TECHNIQUE Image Acquisition: A 128 slice MDCT scanner (Brainracka View) was used for data acquisition. A noncontrast coronary calcium scan was performed. A CT attenuation threshold of 130 Hounsfield units (HU) was used for the detection of calcium in contiguous voxels of 1 sq mm in area to be counted as individual lesions. Bolus tracking in the ascending aorta with a threshold of 180 HU was performed. Immediately afterwards, ECG synchronized cardiac CT was then performed from the cardiac base to apex using retrospective gating with ECG tube current modulation. A total of 85 mL of Isovue 370 mg/mL contrast medium was administered at 5 mL/sec followed by a saline flush using a biphasic injection protocol. A tube voltage of 120 KVp was used. The patient received the following medications prior to the cardiac CT. 75 mg of oral metoprolol 15 mg of oral ivabradine 0.4 mg of sublingual nitroglycerin The average heart rate at the time of acquisition was 67 bpm and regular. Image Reconstruction Transaxial images were reconstructed at 0.67 mm slide thickness. Data was reviewed interactively on an advanced workstation capable of 2 and 3-dimensional displays in all conventional reconstruction formats, including multiplanar reformations, maximum intensity projections, curved multiplanar reformations, and volume rendered reconstructions. When applicable, selected routine images describing the relevant coronary anatomy and pathology were saved and sent to PACS. Complications None Technical Quality Overall image quality was good. Coronary artery opacification was adequate. Total DLP (Dose-Length Product) is 1485.9 mGy-cm. The reported value represents the total of one or more individual components during the CT acquisition of this date and at this time, and as such, the same value may appear in more than one CT report depending on the interpreting/reporting physicians. COMPARISON None FINDINGS CT Coronary Calcium Scoring LMA (Left Main Artery) = 3 LAD (Left Anterior Descending) = 26 LCX (Left Coronary Circumflex) = 45 RCA (Right Coronary Artery) = 0 Total Calcium Score = 74 using the AJ-130 method. The observed calcium score of 74 is at 86th percentile for subjects of the same age, sex, and race/ethnicity. The interpretation of the calcium heart score is based on the following continuum*: 0 = no calcified plaque detected (risk of coronary artery disease is very low ??? less than 5%) 1-10 = calcium detected in extremely minimal levels (risk of coronary diseases is still low ??? less than 10%) 11-100 = mild levels of plaque detected with certainty (mild or minimal narrowing of heart arteries is likely) 101-400 = definite,at least moderate levels of plaque detected (relatively high risk of a heart attack within 3-5 years) >401-999 = extensive levels of plaque detected (high risk of heart attack, high levels of vascular disease are present, high likelihood of at least one significant coronary narrowing) *The calcium heart score quantifies the burden of coronary calcification/plaque in the coronary arteries. The calcium heart score is not able to evaluate the presence or burden of non-calcified (i.e. soft) plaque. There is also mild calcification in the descending thoracic aorta. Coronary CT Angiography The coronary arterial system is right dominant. Quantitative Stenosis Grading: Left Main (LM): The left main originates normally from the left sinus of Valsalva. The LM bifurcates into the left anterior descending artery and left circumflex artery. There is calcified plaque in the proximal LM segment, but with no evidence of luminal stenosis. Left Anterior Descending (LAD) and Diagonal Branches: The LAD gives off 3 diagonal branch(es). There is mixed calcified/noncalcified plaque in the proximal LAD segment with up to 50-70% luminal stenosis. There is no evidence of LAD-myocardial bridge. Left Circumflex (LCX) and Obtuse Marginals (OM): The LCX gives off 2 Obtuse Marginal (OM) branch(es). There is noncalcified plaque present in the proximal LCx segment with up to 25???percent 49% luminal stenosis. Right Coronary Artery (RCA): The RCA originates normally from the right sinus of Valsalva. The RCA gives off a posterior descending artery (PDA) and posterolateral (PL) branches. There is mixed calcified/noncalcified plaque in the proximal and mid RCA segments, with 25-49% luminal stenosis. Non-Coronary Cardiac Findings: Analysis of the left ventricular (LV) structure and function was performed after 3-D reconstruction of the LV from axial images, with user-corrected automatic contouring for assessment of LV volumes and user-defined reconstruction from oblique planes for measurement of 3-D cardiac structure and function. -The left ventricle systolic function is normal. -There is no left atrial appendage filling defect. Two right pulmonary veins and two left pulmonary veins drain normally into the left atrium. -No pericardial thickening or calcification. -Central and branch pulmonary arteries in the [id number] are unremarkable. -Thoracic aorta within the visualized thoracic aortic-branches in the [id number] is unremarkable. Extracardiac Structures No significant extra-cardiac findings. Note, however, that this study is focused on the cardiac findings. IMPRESSION -Presence of coronary calcification with an Agatston score = 74 using the AJ-130 method. -The observed calcium score of 74 is at 86th percentile for subjects of the same age, sex, and race/ethnicity. -Moderate atherosclerotic coronary disease in the proximal LAD segment (50-70% luminal stenosis), with possible flow-limiting stenosis in the corresponding region. Otherwise, presence of mild, non-obstructive multivessel disease in the remaining coronary tree. -CAD-RADS 2. Management recommendations per ACC/AHA guidelines*, as clinically appropriate. *Recommendations: CAD RADS 0: Reassurance. Consider non-atherosclerotic causes of chest pain. CAD RADS 1: Consider non-atherosclerotic causes of chest pain. Consider preventive therapy and risk factor modification. CAD RADS 2: Consider non-atherosclerotic causes of chest pain. Consider preventive therapy and risk factor modification, particularly for patients with nonobstructive plaque in multiple segments. CAD RADS 3: Consider further functional testing. Consider symptom-guided anti-ischemic and preventive pharmacotherapy as well as risk factor modification per published guideline statements. CAD RADS 4A: Consider further functional testing or invasive coronary angiography with revascularization per published guideline statements. Consider symptom-guided anti-ischemic and preventive pharmacotherapy as well as risk factor modification per published guideline statements. CAD RADS 4B: Invasive coronary angiography recommended with revascularization per published guideline statements. Consider symptom-guided anti-ischemic and preventive pharmacotherapy as well as risk factor modification per published guideline statements. CAD RADS 5: Consider invasive angiography and/or viability assessment with revascularization per published guideline statements. Consider symptom-guided anti-ischemic and preventive pharmacotherapy as well as risk factor modification per published guideline statements. CRITICAL RESULT None COMMUNICATION Per this written report The coronary and cardiac findings of this CCTA were reviewed, reported, and signed by Mendoza Terrell MD (Liner Roll Changer) Conclusion Electronically signed by : Nedra Terrell MD 04/14/2024 11:55:44
[2024-04-13 09:23] VITALS: BMI 29.0
[2024-04-13] MEDS: IVABRADINE HCL 7.5MG TABLET PO (09:30)
[2024-04-13] MEDS: METOPROLOL TARTRATE 50MG TABLET PO (09:30)
[2024-04-13 10:12] LABS: Glucose,Random 658 mg/dL (74-100)
[2024-04-13 10:45] VITALS: BP 125/77; PULSE 72; RESP 16; O2SAT 96
[2024-04-13 10:48] VITALS: BP 125/68; PULSE 71; RESP 16; O2SAT 94
[2024-04-13 10:51] VITALS: BP 109/60; PULSE 72; RESP 16; O2SAT 96
[2024-04-13] MEDS: SODIUM CHLORIDE 0.9% 10ML SYR (RAD ONLY) 10 ML IV (11:06)
[2024-04-13] MEDS: 0.9 % SODIUM CHLORIDE 50 ML VIAL IV (11:06)
[2024-04-13] MEDS: IOPAMIDOL-370 (76%);100ML BOTTLE 85 ML IV (11:07)
[2024-04-13 11:13] VITALS: BP 114/70; PULSE 74; RESP 16; O2SAT 96
--- NOTE | 2024-04-13 11:18 | PC.NURSE ---
1100- Shamika Roy, primary care notified of patient blood glucose of 658. Verbal order to send patient to ER. patient refused the ER. patient education provided about the risks of not receiving medical treatment with glucose of 658. patient states i will go home and use 90units of lantus and monitor it until it goes down) 1115- Shamika Roy notified of patient refusal of treatment. AMA paperwork signed
--- NOTE | 2024-04-13 11:20 | PC.NURSE ---
1030: Spoke with Yamel Garcia and Asif Farrar concerning pt's blood glucose. Asif Farrar stated that if the pt was asymptomatic he could get the CCTA and then follow up with primary physician today. Pt is currently reporting no symptoms. Will continue with CCTA and contact Manuela before d/c.
== END 2024-04-13 11:20 | disposition home or self-care (01) ==
LOC: RAD 09:06
PROVIDERS: PCP Nurse Practitioner; Visit Provider Nurse Practitioner
DX: R93.1 Abnormal findings on diagnostic imaging of heart and coronary circulation (principal); R00.2 Palpitations; F17.200 Nicotine dependence, unspecified, uncomplicated; R06.09 Other forms of dyspnea; R00.0 Tachycardia, unspecified; E78.5 Hyperlipidemia, unspecified; I10 Essential (primary) hypertension
CPT/HCPCS: 36415; 75574; 82947; Q9967

== ENCOUNTER 2024-04-23 09:55 | Day surgery (SDC) | payer MEDICARE, MEDICAID, SELFPAY ==
[2024-04-23 10:01] VITALS: BMI 29.1
[2024-04-23] MEDS: CEFAZOLIN SODIUM 1 GM in 0.9 % SODIUM CHLORIDE 50 ML IV (10:15)
[2024-04-23] MEDS: LIDOCAINE 2% W/EPI 1:100,000 20ML VIAL 20 ML SUBCUT (10:16)
[2024-04-23 10:22] VITALS: BP 92/49; PULSE 68; RESP 18; O2SAT 97
[2024-04-23] MEDS: LORazepam 2MG/ML VIAL 1 MG IV (10:27)
[2024-04-23 10:28] VITALS: PULSE 60
[2024-04-23 10:41] VITALS: BP 116/72; PULSE 69; RESP 18; O2SAT 97
[2024-04-23 10:43] VITALS: BP 116/72; PULSE 70; RESP 18; O2SAT 97
[2024-04-23] MEDS: HYDROCODONE/APAP 5/325 MG TABLET 2 TAB PO (10:51)
--- NOTE | 2024-04-23 12:14 | EXP.LOOP ---
[facility] Loop Recorder Date: 04/23/24 Time: 10:41 Procedure Performed:: Implantation of loop recorder Indication:: Cryptogenic Stroke/CVA Technique:: Patient was brought to the cardiac Bioinformatics Computer Scientist.? After informed consent obtained, 1% lidocaine with epinephrine was used to anesthetize the site along the left anterior aspect of the chest near the sternal border.? Using the preformed scalpel, an incision was made and using the supplied preloaded apparatus, the loop recorder was placed subcutaneously without difficulty.? Following the deployment of the loop recorder interrogation of the device was performed to ensure appropriate voltage was being detected.? Once this was verified, Steri-Strips were placed over the incision and the patient was prepped to discharge home.? Patient tolerated the procedure well with minimal discomfort. Impression:: Successful implantation of loop recorder Serial Number:: [employer] [id number] Plan:: Routine postop care
== END 2024-04-23 11:10 | disposition home or self-care (01) ==
PROVIDERS: PCP Nurse Practitioner; Visit Provider Internal Medicine
DX: R06.00 Dyspnea, unspecified (principal); I10 Essential (primary) hypertension; Z86.73 Personal history of transient ischemic attack (TIA), and cerebral infarction without residual deficits; E78.5 Hyperlipidemia, unspecified; E11.9 Type 2 diabetes mellitus without complications; F17.210 Nicotine dependence, cigarettes, uncomplicated; Z79.4 Long term (current) use of insulin; Z79.899 Other long term (current) drug therapy
CPT/HCPCS: 33285; C1764; J0690; J2060

== ENCOUNTER 2024-05-10 10:49 | Outpatient (CLI) | payer MEDICARE, MEDICAID, SELFPAY ==
--- NOTE | 2024-05-10 10:53 | XR_ITS ---
FINAL REPORT CLINICAL HISTORY: PAIN COMPARISON: None FINDINGS: LEFT KNEE Three views demonstrate no acute fracture or dislocation. The joint spaces appear normal. No acute soft tissue abnormality is seen. IMPRESSION: No acute bony abnormality. Reviewed, Interpreted and Dictated by Omari Tabares MD Transcribed by Rose Mary Hathaway Authenticated and [facility]
== END 2024-05-10 23:59 | disposition home or self-care (01) ==
LOC: RAD 10:51
PROVIDERS: PCP Nurse Practitioner; Visit Provider Nurse Practitioner
DX: M25.562 Pain in left knee (principal)
CPT/HCPCS: 73562

== ENCOUNTER 2024-05-12 07:04 | Day surgery (SDC) | payer MEDICARE, MEDICAID, SELFPAY ==
[2024-05-10 16:07] VITALS: BMI 29.0
[2024-05-12 07:38] VITALS: BP 100/51; PULSE 77; RESP 18; TEMP 36.5; O2SAT 98; BMI 29.0
[2024-05-12 07:45] LABS: POC Glucose,Bedside 258 (70-110)
--- NOTE | 2024-05-12 08:02 | P.PNANES_ITS ---
[facility] Disclaimer: The information contained in this section may have been updated after the patient was seen, as this information can be updated by other users. Medical History Abnormal nuclear cardiac imaging test History of tonsillitis Diabetes CVA (cerebral vascular accident) Skin induration Deviated septum Right maxillary sinus opacification Headache Chronic sinusitis Right sided facial pain Pain due to onychomycosis of toenail Neuropathy involving both lower extremities Bilateral foot pain Nail fungus Surgical History History of back surgery History of colon resection History of appendectomy History of laparotomy Family History Other Family history of diabetes mellitus Social History Smoking Status: Current every day smoker alcohol intake: never substance use type: denies use current occupational status: retired Travel in the last 8 weeks: None caffeine: No Have you lived/traveled outside [place] in past 30 days?: No Contact w/someone who lives/traveled outside [place] past 30 days?: No Exposure to someone with infectious disease in past 14 days?: No Do you have a fever (greater than 100.4 F or 38 C)?: No Have you tested positive for COVID-19: No Exposed to someone with COVID-19 in past 14 days?: No Do you have a sore throat?: No Do you have a cough?: No Do you have any weakness?: No Do you have any diarrhea?: No Are you experiencing any unusual bleeding?: No Do you have any muscle aches/pain?: No Do you have any abdominal pain?: No Are you experiencing loss of taste or smell?: No [facility] Anesthesia Checklist Patient Identification Patient Identification: Arm Band Structural Data Admitted From: Home Planned Operative Procedure/s: Colonoscopy Consent for Planned Operative Procedure(s) Verified: Yes Verified Documents: Surgical Consent and History and Physical NPO Status Verified Time NPO: 06:00 (black coffee) Additional verifications Anesthesia Reactions: No Hx Blood Transfusions: No Airway Assessment Mallampati Score:: Class II C-Spine Mobility Assessed: Yes TMJ Mobility Assessed: Yes Dentition: Good Dentition Neurological Assessment Level of Consciousness: Awake, Alert and Appropriate Anesthesia Plan Anesthesia Risk discussed: Yes Anesthesia Plan: Verified ASA Class: III Anesthesia Type: MAC
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
[2024-05-12 08:17] VITALS: O2SAT 98
[2024-05-12 08:30] VITALS: BP 95/74; PULSE 67; RESP 16; TEMP 36.6; O2SAT 93
[2024-05-12 08:40] VITALS: BP 85/48; PULSE 66; RESP 16; O2SAT 94
[2024-05-12 08:50] VITALS: BP 105/56; PULSE 69; RESP 16; O2SAT 98
[2024-05-12 09:00] VITALS: BP 109/67; PULSE 67; RESP 18; O2SAT 99
== END 2024-05-12 09:10 | disposition home or self-care (01) ==
PROVIDERS: PCP Nurse Practitioner; Visit Provider Internal Medicine Gastroenterology
PROC: 0DJD8ZZ Inspection of Lower Intestinal Tract, Via Natural or Artificial Opening Endoscopic (ICD-10-PCS; CPT 45378; principal; 2024-05-12 08:30)
DX: R19.5 Other fecal abnormalities (principal); Z86.0100 Personal history of colon polyps, unspecified; K59.03 Drug induced constipation
CPT/HCPCS: G0121; 82962; J2250

== ENCOUNTER 2024-05-13 10:22 | Day surgery (SDC) | payer MEDICARE, MEDICAID, SELFPAY ==
[2024-05-13 10:43] VITALS: BP 157/83; PULSE 91; RESP 16; TEMP 36.3; O2SAT 99; BMI 29.0
[2024-05-13] MEDS: LACTATED RINGERS 1000ML 1,000 ML 50 ML IV (10:48)
[2024-05-13 10:51] LABS: POC Glucose,Bedside 226 (70-110)
--- NOTE | 2024-05-13 11:41 | P.PNANES_ITS ---
[facility] Disclaimer: The information contained in this section may have been updated after the patient was seen, as this information can be updated by other users. Medical History Abnormal nuclear cardiac imaging test History of tonsillitis Diabetes CVA (cerebral vascular accident) Skin induration Deviated septum Right maxillary sinus opacification Headache Chronic sinusitis Right sided facial pain Pain due to onychomycosis of toenail Neuropathy involving both lower extremities Bilateral foot pain Nail fungus Surgical History History of back surgery History of colon resection History of appendectomy History of laparotomy Family History Other Family history of diabetes mellitus Social History Smoking Status: Current every day smoker alcohol intake: never substance use type: denies use current occupational status: retired Travel in the last 8 weeks: None caffeine: No Have you lived/traveled outside US in past 30 days?: No Contact w/someone who lives/traveled outside US past 30 days?: No Exposure to someone with infectious disease in past 14 days?: No Do you have a fever (greater than 100.4 F or 38 C)?: No Have you tested positive for COVID-19: No Exposed to someone with COVID-19 in past 14 days?: No Do you have a sore throat?: No Do you have a cough?: No Do you have any weakness?: No Do you have any diarrhea?: No Are you experiencing any unusual bleeding?: No Do you have any muscle aches/pain?: No Do you have any abdominal pain?: No Are you experiencing loss of taste or smell?: No [facility] Anesthesia Checklist Patient Identification Patient Identification: Arm Band and Verbal (Name & ) Structural Data Admitted From: Home Planned Operative Procedure/s: colonoscopy Consent for Planned Operative Procedure(s) Verified: Yes Verified Documents: Surgical Consent NPO Status Verified Time NPO: 00:00 Additional verifications Patient : No Anesthesia Reactions: No Hx Blood Transfusions: No Blood Transfusion Reaction: No Cephalosporin Allergy: No Previous Colonoscopy: No Cardiovascular Assessment Heart Sounds: S1 & S2 Pulse Strength: Baseline Pulse Rhythm: Regular Peripheral Edema: No Airway Assessment Mallampati Score:: Class I C-Spine Mobility Assessed: Yes TMJ Mobility Assessed: Yes Dentition: Dentures-good fit Neurological Assessment Level of Consciousness: Awake, Alert and Appropriate Hx Seizures: Yes Numbness or tingling in extremities: No Anesthesia Plan Anesthesia Risk discussed: Yes Anesthesia Plan: Verified ASA Class: III Anesthesia Type: MAC
[2024-05-13 11:52] VITALS: O2SAT 99
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
[2024-05-13 12:27] VITALS: BP 87/42; PULSE 67; RESP 18; TEMP 36.2; O2SAT 94
[2024-05-13 12:37] VITALS: BP 92/55; PULSE 64; RESP 18; O2SAT 96
[2024-05-13 12:47] VITALS: BP 114/43; PULSE 76; RESP 17; O2SAT 99
[2024-05-13 12:57] VITALS: BP 129/74; PULSE 76; RESP 17; O2SAT 99
== END 2024-05-13 13:05 | disposition home or self-care (01) ==
PROVIDERS: PCP Nurse Practitioner; Visit Provider Internal Medicine Gastroenterology
PROC: 0DJD8ZZ Inspection of Lower Intestinal Tract, Via Natural or Artificial Opening Endoscopic (ICD-10-PCS; CPT 45378; principal; 2024-05-13 13:30)
DX: K63.5 Polyp of colon (principal); Q43.8 Other specified congenital malformations of intestine; K64.1 Second degree hemorrhoids; R19.5 Other fecal abnormalities; Z86.0100 Personal history of colon polyps, unspecified; E11.9 Type 2 diabetes mellitus without complications; Z79.4 Long term (current) use of insulin
CPT/HCPCS: 45385; 82962; J2250; J2704; J7120

== ENCOUNTER 2024-08-02 08:13 | Day surgery (SDC) | payer MEDICARE, MEDICAID, SELFPAY ==
[2024-08-02] VITALS (10 sets, daily range): BP systolic 84–155; BP diastolic 50–68; PULSE 57–80; RESP 20; O2SAT 94–98; BMI 28.8
--- NOTE | 2024-08-02 07:15 | IR_ITS ---
APPROVED REPORT Patient Location: Outpatient PROCEDURES Left heart catheterization Left ventriculogram Selective coronary angiogram Drug-eluting stent deployment to the proximal and mid LAD INDICATION Coronary artery disease, High risk abnormal Myoview, Angina pectoris, Abnormal CCTA, Informed consent was obtained prior to the procedure. COMPLICATIONS NONE Estimated Blood Loss: LESS THAN 10 ML TECHNIQUE One percent lidocaine used to anesthetize the right anterior aspect of the wrist. The right radial artery was accessed via the Seldinger technique. A 6 Nepali sheath was placed in the right radial artery. 2.5 mg of Verapamil, 800 mcg of nitroglycerin, 1mg Lidocaine and 5000 U Heparin were given through the arterial sheath. The JL3 catheter was also used to perform left heart catheterization, left ventriculogram and selective coronary angiogram. At the end the diagnostic angiogram therapeutic heparin was administered giving a therapeutic ACT and the guide catheter was placed in left main artery followed by Choice PT extra-support wire placed distally in the LAD. 3.5 x 38 mm Naif frontier stent was placed in the proximal to mid LAD and deployed at 20 veronica. An additional 3 mm x 15 mm Naif frontier stent was placed distal to the for stent yet still overlapping and deployed at 24 veronica. The balloon was brought back and deployed at 24 veronica to match the 2 stents. A 3.5 x 12 mm noncompliant balloon was deployed at 24 veronica in the proximal mid and distal portion of the 3.5 mm stent. ORIANA-3 flow was present at the beginning and end of the procedure. At the end the procedure the apparatus was removed the sheath was removed and hemostasis was achieved using TR banding patient was transferred to the postop holding in stable condition ANGIOGRAPHIC RESULTS The left main artery Normal The left anterior descending artery Has long tubular 30% stenosis with an additional proximal 70% stenosis followed by 30 to 40% stenosis. Distal to the large second diagonal artery there is a concentric 40 to 50% stenosis The circumflex artery Nondominant normal The right coronary artery Large dominant with diffuse 10% luminal regularities The VILA ventriculogram reveals Not performed The left ventricular end-diastolic pressure Not measured IMPRESSION Severe disease in the proximal LAD with successful stenting of the proximal to mid LAD severe disease reduced to 0% with 2 contiguous drug-eluting stents Persistent moderate disease in the mid LAD Mild disease throughout the dominant right coronary PLAN 1. Plavix and aspirin 2. LDL less than 55 achieved with high intensity statin 3. Avoidance of tobacco products 4. Risk factor modification 5. Cardiac rehabilitation Electronically signed by : Tony Guzman MD 08/02/2024 11:03:25
[2024-08-02 08:47] LABS: Basophils # 0.1 K/mm3 (0-0.2); Basophils % 0.7 % (0.1-2.0); Eosinophils # 0.3 Kmm3 (0.0-0.4); Eosinophils % 3.1 % (0.1-12.0); Hematocrit 46.6 % (42.0-52.0); Hemoglobin 15.6 g/dL (14.1-18.0); Immature Granulocytes # 0.03 10^3uL; Immature Granulocytes % 0.3 %; Lymphocytes # 2.2 K/mm3 (0.7-4.5); Lymphocytes % 20.1 % (10-50); Mean Corpuscular HGB Conc 33.5 g/dL (31.8-35.4); Mean Corpuscular Hemoglobin 30.1 pg (27.0-31.2); Mean Corpuscular Volume 89.8 fl (80-94); Mean Platelet Volume 10.6 fl (7.4-10.4); Monocytes # 0.8 K/mm3 (0.1-1.0); Monocytes % 7.6 % (1.7-9.3); Neutrophils # 7.3 K/mm3 (1.8-7.8); Neutrophils % 68.2 % (37.0-80.0); Nucleated Red Blood Cells # 0 10^3/uL; Nucleated Red Blood Cells % 0 %; Platelet Count 212 K/mm3 (142-424); Red Blood Count 5.19 M/mm3 (4.60-6.20); Red Cell Distribution Width 13.2 % (11.5-17.5); Red Cell Distribution Width-SD 43.1 fL; White Blood Count 10.7 K/mm3 (4.8-10.8)
[2024-08-02 08:50] LABS: Chloride 104 mmol/L (98-107); Sodium 137 mmol/L (136-145)
[2024-08-02 08:51] LABS: Potassium 4.1 mmoL/L (3.5-5.1)
[2024-08-02] MEDS: diazePAM 5MG TABLET 5 MG PO (08:51)
[2024-08-02 08:53] LABS: Blood Urea Nitrogen 13 mg/dl (9-20); Creatinine Clearance Estimated 124 mL/min (50-200); Estimated Glomerular Filt Rate 79 ml/min (>60); GFR (African American) 96 ML/MIN (>60)
[2024-08-02 08:54] LABS: Anion Gap 13.1 mEq/L (5-15); Calcium 9.4 mg/dl (8.4-10.2); Carbon Dioxide 24 mmol/L (22.0-30.0); Glucose 310 mg/dl (74-100)
--- NOTE | 2024-08-02 09:00 | SUR.PREOP ---
Pt takes pain meds for chronic pain, states it okay to give him his morning dose. see mar
[2024-08-02] MEDS: OXYCODONE 5MG W/APAP 325MG TABLET 2 EACH PO (09:10)
[2024-08-02] MEDS: LORazepam 2MG/ML VIAL 1 MG IV (09:36)
[2024-08-02] MEDS: VERAPAMIL 2.5MG/ML 2ML VIAL 2.5 MG IV (10:10)
[2024-08-02] MEDS: HEPARIN 1,000 UNITS/ML 10ML VIAL (CATH LAB) 5000 UNIT IV (10:10)
[2024-08-02] MEDS: HEPARIN 1,000 UNITS/500ML NS (CATH LAB) 3000 UNIT IV (10:10)
[2024-08-02] MEDS: LIDOCAINE 1% 10ML MDV 10 ML IJ (10:10)
[2024-08-02] MEDS: 0.9 % SODIUM CHLORIDE 500 ML 25 ML IV (10:10)
[2024-08-02] MEDS: diphenhydrAMINE 50MG/ML VIAL 50 MG IV (10:11)
[2024-08-02] MEDS: NITROGLYCERIN 800MCG/8ML SYR (CATH LAB) 800 MCG IA (10:11)
--- NOTE | 2024-08-02 10:28 | SUR.PREOP ---
pt stated to this RN that he is deathly allergic to aspirin. pt stated he will go into anaphylaxis if he takes it. notified.
[2024-08-02] MEDS: PROPOFOL 10MG/ML 20ML VIAL 10 MG IV (10:33)
[2024-08-02] MEDS: IOPAMIDOL-370 (76%);100ML BOTTLE 70 ML IV (13:12)
[2024-08-02 13:15] LABS: CATHL Activated Clotting Time > 400 SEC (74-125)
== END 2024-08-02 13:09 | disposition home or self-care (01) ==
PROVIDERS: PCP Nurse Practitioner; Visit Provider Internal Medicine
PROC: 4A023N7 Measurement of Cardiac Sampling and Pressure, Left Heart, Percutaneous Approach (ICD-10-PCS; CPT 93452; principal; 2024-08-02 08:30)
DX: I25.118 Atherosclerotic heart disease of native coronary artery with other forms of angina pectoris (principal); I77.1 Stricture of artery; E11.9 Type 2 diabetes mellitus without complications; I10 Essential (primary) hypertension; F17.210 Nicotine dependence, cigarettes, uncomplicated; E78.5 Hyperlipidemia, unspecified; R06.02 Shortness of breath; R93.1 Abnormal findings on diagnostic imaging of heart and coronary circulation; Z91.030 Bee allergy status; Z88.6 Allergy status to analgesic agent; Z88.5 Allergy status to narcotic agent; Z88.8 Allergy status to other drugs, medicaments and biological substances; Z79.4 Long term (current) use of insulin; Z86.73 Personal history of transient ischemic attack (TIA), and cerebral infarction without residual deficits
CPT/HCPCS: 80048; 85025; 85347; 92928; 93458; 99152; C1725; C1769; C1874; C9600; J1200; J1644; J2060; Q9967

== ENCOUNTER 2024-08-02 17:58 | Observation (INO) | payer MEDICARE, MEDICAID, SELFPAY ==
[2024-08-02] VITALS (8 sets, daily range): BP systolic 115–138; BP diastolic 61–86; PULSE 66–74; RESP 13–30; TEMP 36.7–36.8; O2SAT 95–98; BMI 27.4; BMI 28.8
--- NOTE | 2024-08-02 17:59 | ECG_ITS ---
APPROVED REPORT Exam: Resting ECG HR:76 bpm ECG Measurements Heart Rate 76 AXES KS 197 P 65 QRSd 89 QRS 61 QT 381 T 74 QTc 411 Conclusion SINUS RHYTHM Artifact in V3 complicates interpretation but otherwise normal EKG, no STEMI Electronically signed by : LORI GONZALEZ, 08/03/2024 06:56:02
--- NOTE | 2024-08-02 18:04 | XR_ITS ---
PROCEDURE INFORMATION: Exam: XR Chest Exam date and time: 08/02/2024 6:44 PM Age: 48 years old Clinical indication: Pain; Other: Cp post cath TECHNIQUE: Imaging protocol: Radiologic exam of the chest. Views: 1 view. COMPARISON: CT CHEST WO CON 12/09/2023 3:43 PM FINDINGS: Lungs: Unremarkable. No consolidation. Pleural spaces: Unremarkable. No pleural effusion. No pneumothorax. Heart/Mediastinum: Unremarkable. No cardiomegaly. Bones/joints: Unremarkable. IMPRESSION: No acute findings.
--- NOTE | 2024-08-02 18:11 | [facility].EDCP ---
Discharge Plan Disposition Patient Disposition: Admitted Chief Complaint: Chest Pain Clinical Impressions Clinical Impression: Arteritis, Chest pain Discharge ED Provider: Bhupinder Jackson HPI General Chief Complaint: Chest Pain Stated Complaint: chest pain Time Seen by Provider: 08/02/24 18:04 History of Present Illness HPI narrative: Patient is a 48-year-old male with past medical history of hypertension, diabetes who presents emergency department for evaluation of chest pain after recent heart catheterization. Patient reportedly had heart catheterization today by Dr. Guzman (no does not complete as of yet) where he was diagnosed with a maker and got 2 stents. Since his medication wore off after his procedure he is complaining of pain in his sternum as if he is being stabbed with a fork. Due to this he become concerned and presents here for continued evaluation. No abdominal pain reported. Please note that above description of symptoms, in this electronic medical record under categorization of recalled from ER triage doctor by RN are reflective of an initial nursing assessment, however, is not reflective of my full history and physical exam that was personally taken and clarified. Consequentially, this preceding description of symptoms, which may include the patient's categorized chief complaint in the EMR, do not reflect my personal clinical impression, and the ultimate description of history of present illness and patient stated complaints should be deferred to this section of the note. Unless stated otherwise or congruent with this section of the note, additional signs, symptoms, or incongruence should be interpreted as inaccurate with my clinical impression. Related Data Home Medications ?Medication ?Instructions ?Recorded ?Confirmed hydroxyzine HCl 25 mg tablet 25 mg PO NEEDED PRN Anxiety 08/15/22 08/02/24 levetiracetam 750 mg tablet 1,500 mg PO BID seizure 08/15/22 08/02/24 lorazepam 1 mg tablet 1 mg PO TID Anxiety 08/15/22 08/02/24 losartan 50 mg tablet 100 mg PO DAILY Hypertension 08/15/22 08/02/24 oxycodone 10 mg tablet 10 mg PO Q4HP PRN Pain 08/15/22 08/02/24 pregabalin 150 mg capsule 150 mg PO TID Tremors 08/15/22 08/02/24 rosuvastatin 10 mg tablet 10 mg PO DAILY Cholesterol 08/15/22 08/02/24 topiramate 25 mg tablet 25 mg PO HS Headache 08/15/22 08/02/24 insulin glargine 100 unit/mL 90 unit SQ BID 04/14/23 08/02/24 subcutaneous solution (Lantus U-100 Insulin) clopidogrel 75 mg tablet (Plavix) 75 mg PO DAILY 05/06/23 08/02/24 fenofibrate nanocrystallized 48 mg 48 mg PO DAILY 05/06/23 08/02/24 tablet folic acid 400 mcg tablet 400 mg PO DAILY 05/06/23 08/02/24 insulin aspart U-100 100 unit/mL 1 sliding scale dose SQ 05/06/23 08/02/24 subcutaneous solution (Novolog USEASDIRECTD U-100 Insulin aspart) insulin syringe-needle U-100 1 mL #10 ea 05/06/23 08/02/24 31 gauge x 5/16 (BD Insulin Syringe Ultra-Fine) pantoprazole 20 mg tablet,delayed 20 mg PO DAILY PRN Heartburn 05/06/23 08/02/24 release (Protonix) potassium chloride 10 mEq 10 meq PO DAILY 05/06/23 08/02/24 capsule,extended release trazodone 50 mg tablet 50 mg PO HS 05/06/23 08/02/24 baclofen 10 mg tablet 10 mg PO Q6H PRN . 06/17/23 08/02/24 meclizine 25 mg tablet 25 mg PO TID PRN Dizziness 01/12/24 08/02/24 promethazine 25 mg tablet 25 mg PO Q6H PRN Nausea 01/12/24 08/02/24 calcitriol 0.25 mcg capsule 0.25 mcg PO DAILY 03/24/24 08/02/24 empagliflozin 25 mg tablet 25 mg PO DAILY 03/24/24 08/02/24 (Jardiance) blood-glucose sensor (FreeStyle #1 ea 07/26/24 08/02/24 Eugenie 3 Sensor device) flash glucose scanning reader #1 ea 07/26/24 08/02/24 (FreeStyle Eugenie 2 [place]) Previous Rx's ?Medication ?Instructions ?Recorded mupirocin 2 % topical ointment 1 applic topical BID infection 14 03/29/24 days #15 grams metoprolol succinate 100 mg See Rx Instructions .Route 06/17/24 tablet,extended release 24 hr .COMPLEX #30 tabs doxycycline hyclate 100 mg capsule 100 mg PO BID infection 14 days 07/29/24 #28 caps Allergies Allergy/AdvReac Type Severity Reaction Status Date / Time aspirin Allergy Severe Anaphylaxis Verified 07/29/24 13:04 ibuprofen (From Motrin) Allergy Severe Anaphylaxis Verified 07/29/24 13:04 naproxen (From Aleve) Allergy Severe Anaphylaxis Verified 07/29/24 13:04 NSAIDS (Non-Steroidal Allergy Severe Anaphylaxis Verified 07/29/24 13:04 Anti-Inflamma bee venom protein (honey bee) Allergy Anaphylaxis Verified 07/29/24 13:04 metoclopramide (From Reglan) AdvReac Intermediate Agitated Verified 07/29/24 13:04 midazolam (From Versed) AdvReac Verified 08/02/24 08:27 [facility] Disclaimer: The information contained in this section may have been updated after the patient was seen, as this information can be updated by other users. Medical History SOB (shortness of breath) Chest pain Abnormal findings on diagnostic imaging of heart and coronary circulation Abnormal nuclear cardiac imaging test History of tonsillitis Diabetes CVA (cerebral vascular accident) Skin induration Deviated septum Right maxillary sinus opacification Headache Chronic sinusitis Right sided facial pain Pain due to onychomycosis of toenail Neuropathy involving both lower extremities Bilateral foot pain Nail fungus Surgical History History of back surgery History of colon resection History of appendectomy History of laparotomy Family History Other Family history of diabetes mellitus Social History Smoking Status: Never smoker alcohol intake: never substance use type: denies use current occupational status: retired Travel in the last 8 weeks?: None caffeine: No Have you lived/traveled outside [place] in past 30 days?: No Contact w/someone who lives/traveled outside [place] past 30 days?: No Exposure to someone with infectious disease in past 14 days?: No Do you have a fever (greater than 100.4 F or 38 C)?: No Have you tested positive for COVID-19?: No Exposed to someone with COVID-19 in past 14 days?: No Do you have a sore throat?: No Do you have a cough?: No Do you have any weakness?: No Do you have any diarrhea?: No Are you experiencing any unusual bleeding?: No Do you have any muscle aches/pain?: No Do you have any abdominal pain?: No Are you experiencing loss of taste or smell?: No Other Medical History Have you received the Flu Vaccine for this season: No Have you received the Pneumonia Vaccine: No ROS Obtained: Yes Systems reviewed as appropriate & no additional complaints except as documented Physical Exam General General appearance: alert and in no apparent distress Head Head exam: atraumatic and normocephalic Eye Eye exam: Present PERRL and EOMI ENT ENT exam: Present mucous membranes moist Neck Neck exam: Present normal inspection Chest Chest inspection: Present normal inspection and symmetric chest wall rise Respiratory Respiratory exam: Present normal lung sounds bilaterally; Absent respiratory distress Cardiovascular Cardiovascular exam: Present regular rate and normal rhythm Abdominal Exam Abdominal exam: Present soft; Absent tenderness Extremities Exam Extremities exam: Present normal inspection Neurological Exam Neurological exam: Present alert and oriented X3 Psychiatric Psychiatric exam: Present normal affect Skin Skin exam: Present warm and dry HEART Score HEART Score HEART Score assessment performed?: Yes History (anamnesis): Highly suspicious ECG: Normal Age: 45-65 years Risk factors: Atherosclerosis history Troponin: </= normal limit HEART Score: 5 Critical Care Critical Care Time Critical Care Time: No Medical Decision Making Len Inquiry Pt receiving controlled substance: No Vital Signs Vital Signs: 08/02/24 18:16 08/02/24 19:00 08/02/24 19:30 Temperature 98.3 F Temperature Source Oral Pulse Rate Pulse Rate [Right] 74 Respiratory Rate 18 30 H 14 Blood Pressure 135/84 126/86 Blood Pressure Source [Right Arm] Automatic Cuff Blood Pressure Position [Right Arm] Sitting 02 Sat by Pulse Oximetry 98 Oxygen Delivery Method Room Air 08/02/24 20:00 08/02/24 21:00 Temperature Temperature Source Pulse Rate 72 Pulse Rate [Right] Respiratory Rate 13 18 Blood Pressure 137/65 138/83 Blood Pressure Source [Right Arm] Blood Pressure Position [Right Arm] 02 Sat by Pulse Oximetry 95 Oxygen Delivery Method Room Air Lab Data Labs: Lab Results 08/02/24 18:13: WBC 9.6, RBC 4.86, Hgb 14.4, Hct 42.8, MCV 88.1, MCH 29.6, MCHC 33.6, RDW 13.1, Plt Count 200, MPV 10.7 H, Neut % (Auto) 52.2, Lymph % (Auto) 34.7, Bath % (Auto) 8.3, Eos % (Auto) 3.9, Baso % (Auto) 0.6, Neut # (Auto) 5.0, Lymph # (Auto) 3.3, Bath # (Auto) 0.8, Eos # (Auto) 0.4, Baso # (Auto) 0.1, Sodium 138, Potassium 4.2, Chloride 106, Carbon Dioxide 24, Anion Gap 12.2, BUN 14, Creatinine 1.10, Estimated Creat Clear 107, Estimated GFR 71, Est GFR ( Amer) 86, Glucose 380 H D, Calcium 9.1, Total Bilirubin 0.5, AST 25, ALT 18, Alkaline Phosphatase 64, Troponin I < 0.01, Total Protein 7.1, Albumin 4.2, Globulin 2.9, Albumin/Globulin Ratio 1.4 08/02/24 18:13 08/02/24 18:13 Response Orders (Tests/Meds): ED MEDICATIONS Generic Name Dose Route Start Last Admin Trade Name Freq PRN Reason Stop Dose Admin Hydromorphone HCl 0.5 mg 08/02/24 21:12 08/02/24 21:24 Hydromorphone 2mg/Ml Syringe IV 08/02/24 21:13 0.5 mg ONCE ONE Administration Nitroglycerin 0.4 mg 08/02/24 21:01 Nitroglycerin 0.4mg Sl Tablet SL 09/01/24 21:00 Q5MINP PRN Chest Pain Oxycodone HCl 10 mg 08/02/24 21:11 08/02/24 21:24 Oxycodone 5mg Immediate Release Tablet PO 08/02/24 21:12 10 mg ONCE ONE Administration Discontinued Medications Generic Name Dose Route Start Last Admin Trade Name Freq PRN Reason Stop Dose Admin Hydromorphone HCl 1 mg 08/02/24 18:49 08/02/24 19:31 Hydromorphone 2mg/Ml Syringe IV 08/02/24 18:50 1 mg ONCE ONE Administration Hydromorphone HCl 1 mg 08/02/24 20:48 08/02/24 20:50 Hydromorphone 2mg/Ml Syringe IV 08/02/24 20:49 1 mg ONCE ONE Administration Hydroxyzine Pamoate 25 mg 08/02/24 18:26 08/02/24 18:31 Hydroxyzine Pamoate 25mg Capsule PO 08/02/24 18:27 25 mg ONCE ONE Administration Morphine Sulfate 4 mg 08/02/24 18:04 08/02/24 18:30 Morphine 4mg/Ml Syringe IV 08/02/24 18:05 4 mg ONCE ONE Administration ORDERS Category Date Time Status CXR --portable [XR chest portable] Stat Exams 08/02/24 18:04 Completed CBC w/Auto Diff [Complete Blood Count Auto Diff] Stat Lab 08/02/24 18:13 Completed CMP [Comprehensive Metabolic Panel] Stat Lab 08/02/24 18:13 Completed Trop I [Troponin I] Stat Lab 08/02/24 18:13 Completed Troponin I Q3H Lab 08/03/24 00:15 Ordered ECG Data Tracing #1: ECG Narrative: Independently inter by me rate 76, rhythm is regular, significant chatter in aVF and V3 limits diagnostic ability EKG no ST elevation in anatomical contiguous leads otherwise. QTc 411. Tracing #2: ECG Narrative: Independently interpreted by me rate is 79, rhythm is regular, axis is normal, no ST elevation in anatomical contiguous leads, QTc 398. MDM Narrative Medical Decision Narrative: In summary patient is a 48-year-old male with past medical history described above who presents emergency department for evaluation of post heart catheterization chest pain. Patient is dynamically stable nontoxic. Arrival, afebrile. Workup will be conducted with hematologic labs, chest x-ray, EKG, troponin. Differential includes atypical ACS, stent thrombosis, normal variation of postcatheterization pain, among others. Initial inventions include multimodal pain control. Initial workup reviewed by me, hematologic labs are nonactionable no significant leukocytosis, no DARSHAN or critical electrolyte abnormality hyperglycemia without elevated anion gap, initial troponin undetectably low. Patient required multiple doses of pain control in the emergency department I discussed case with Dr. Guzman regarding management he recommends nitrates given that patient likely has coronary arteritis. Given this case discussed hospital medicine regarding management they will meet the patient in their service for continued evaluation at this time.
--- NOTE | 2024-08-02 18:24 | ECG_ITS ---
APPROVED REPORT Exam: Resting ECG HR:79 bpm ECG Measurements Heart Rate 79 AXES SC 191 P 69 QRSd 85 QRS 58 QT 363 T 58 QTc 398 Conclusion SINUS RHYTHM NORMAL ECG Electronically signed by : LORI GONZALEZ, 08/03/2024 06:56:54
[2024-08-02 18:27] LABS: Albumin Level 4.2 g/dl (3.5-5.0); Basophils # 0.1 K/mm3 (0-0.2); Basophils % 0.6 % (0.1-2.0); Chloride 106 mmol/L (98-107); Eosinophils # 0.4 Kmm3 (0.0-0.4); Eosinophils % 3.9 % (0.1-12.0); Hematocrit 42.8 % (42.0-52.0); Hemoglobin 14.4 g/dL (14.1-18.0); Immature Granulocytes # 0.03 10^3uL; Immature Granulocytes % 0.3 %; Lymphocytes # 3.3 K/mm3 (0.7-4.5); Lymphocytes % 34.7 % (10-50); Mean Corpuscular HGB Conc 33.6 g/dL (31.8-35.4); Mean Corpuscular Hemoglobin 29.6 pg (27.0-31.2); Mean Corpuscular Volume 88.1 fl (80-94); Mean Platelet Volume 10.7 fl (7.4-10.4); Monocytes # 0.8 K/mm3 (0.1-1.0); Monocytes % 8.3 % (1.7-9.3); Neutrophils % 52.2 % (37.0-80.0); Nucleated Red Blood Cells # 0 10^3/uL; Nucleated Red Blood Cells % 0 %; Platelet Count 200 K/mm3 (142-424); Potassium 4.2 mmoL/L (3.5-5.1); Red Blood Count 4.86 M/mm3 (4.60-6.20); Red Cell Distribution Width 13.1 % (11.5-17.5); Red Cell Distribution Width-SD 42.1 fL; Sodium 138 mmol/L (136-145); White Blood Count 9.6 K/mm3 (4.8-10.8)
[2024-08-02 18:30] LABS: Alanine Aminotransferase 18 U/L (12-78); Albumin/Globulin Ratio 1.4 (1.1-1.8); Alkaline Phosphatase 64 U/L (38-126); Anion Gap 12.2 mEq/L (5-15); Aspartate Amino Transferase 25 U/L (17-59); Bilirubin,Total 0.5 mg/dl (0.2-1.3); Blood Urea Nitrogen 14 mg/dl (9-20); Calcium 9.1 mg/dl (8.4-10.2); Carbon Dioxide 24 mmol/L (22.0-30.0); Creatinine Clearance Estimated 107 mL/min (50-200); Estimated Glomerular Filt Rate 71 ml/min (>60); GFR (African American) 86 ML/MIN (>60); Globulin 2.9 g/dL (1.3-3.2); Glucose 380 mg/dl (74-100); Total Protein,Serum 7.1 g/dl (6.3-8.2)
[2024-08-02] MEDS: MORPHINE 4MG/ML SYRINGE 4 MG IV (18:30)
[2024-08-02] MEDS: hydrOXYzine pamoate 25MG CAPSULE 25 MG PO (18:31)
[2024-08-02 18:43] LABS: Troponin I < 0.01 ng/ml (0.00-0.034)
[2024-08-02] MEDS: HYDROMORPHONE 2MG/ML SYRINGE 1 MG IV ×2 (19:31→20:50)
[2024-08-02] MEDS: HYDROMORPHONE 2MG/ML SYRINGE 0.5 MG IV (21:24)
[2024-08-02] MEDS: OXYCODONE 5MG IMMEDIATE RELEASE TABLET 10 MG PO (21:24)
--- NOTE | 2024-08-02 21:32 | PC.NURSE ---
report called to PARMINDER Kaufman
--- NOTE | 2024-08-02 22:04 | PC.NURSE ---
Patient arrived to floor via wheelchair from ED at 22:00.
[2024-08-02] MEDS: LORazepam 1MG TABLET 1 MG PO (23:25)
[2024-08-02] MEDS: DOXYCYCLINE HYCL 100 MG TABLET PO (23:25)
[2024-08-02] MEDS: levETIRAcetam 500 MG TABLET 1500 MG PO (23:25)
[2024-08-02] MEDS: NITROGLYCERIN 0.4MG SL TABLET 0.4 MG SL ×2 (23:45→23:50)
[2024-08-03] VITALS (7 sets, daily range): BP systolic 111–148; BP diastolic 59–86; PULSE 63–90; RESP 14–18; TEMP 36.4–36.9; O2SAT 97–99; BMI 29.0
--- NOTE | 2024-08-03 00:02 | PC.NURSE ---
Patient verbally refused glargine insulin. He voiced a concern about bottoming out during the night, stating that he is unable to eat anything due to the ongoing excruciating chest pain. He requested to hold off on its administration because of this.
[2024-08-03] MEDS: NITROGLYCERIN 1 GM OINTMENT 0.5 GM TD ×2 (00:10→05:40)
[2024-08-03] MEDS: HYDROMORPHONE 2MG/ML SYRINGE 1 MG IV ×6 (01:00→20:55)
[2024-08-03] MEDS: PREGABALIN 100MG CAPSULE 150 MG PO ×4 (01:05→21:25)
[2024-08-03] MEDS: TOPIRAMATE 25MG TABLET 25 MG PO ×2 (01:05→20:55)
[2024-08-03] MEDS: OXYCODONE 5MG IMMEDIATE RELEASE TABLET 10 MG PO ×5 (01:30→21:25)
[2024-08-03] MEDS: LORazepam 2MG/ML VIAL 0.5 MG IV (02:30)
[2024-08-03 02:32] LABS: Troponin I < 0.01 ng/ml (0.00-0.034)
[2024-08-03 02:53] LABS: POC Glucose,Bedside 237 (70-110)
--- NOTE | 2024-08-03 03:19 | PC.WOUNDNOTE ---
A closed, circular, healing ulceration is noted to the left foot, located on the outer ball underneath the fifth (pinkie) toe. Size/dimension is similar to that of a half dollar coin. No drainage, bleeding, or odor was noted. Dressing Procedure Order: Aseptic technique was utilized during this procedure; hand washing was performed prior to sterile glove application. The ulceration was cleansed, using sterile water. The wound was then covered first with one piece of sterile Xeroform. Secondly, one sterile 4x4 gauze pad, folded in half, was placed over the wound. Approximately half a roll of cotton gauze (or Kerlix wrap) was wrapped around the wound and left foot, keeping the 4x4 gauze pad and Xeroform in place. Lastly, the entire dressing was wrapped with Coban to keep the Kerlix secured. This dressing procedure was recommended per Tim Castro ACNP. The patient tolerated the procedure very well without any complaints of pain. However, the patient stated that he does have pain if pressure is applied directly to the wound.
[2024-08-03] MEDS: HYDROMORPHONE 2MG/ML SYRINGE 0.5 MG IV (03:40)
--- NOTE | 2024-08-03 04:14 | PC.NURSE ---
Addendum entered by Shae Engle RN 08/03/24 04:59: Dilautid order reconfigured per MAY. Matthew RASMUSSEN reviewed EKG results [id number]. Original Note: Around 04:03 this morning, the patient stated that the latest Dilautid dose (at 03:40 per MAY) did not seem to be easing [his] pain at all, and he voiced concerns that the pain medication was no longer working for him anymore. Matthew RASMUSSEN was paged at 04:08 for any new interventions. She stated to perform an EKG, ask the patient what he thinks he needs, and follow-up with her with the EKG results and patient statement(s). Oxycodone and nitroglycerin paste continue to be administered as scheduled per MAY. Vital signs have remained within desired range this shift.
--- NOTE | 2024-08-03 04:17 | P.HP_ITS ---
<Statement entered by Yang Echols MD - 08/09/24 16:59> Personally evaluated the patient and agree with the plan of care as outlined by the DRAMATIC DIRECTOR. History of Present Illness *Admission Date: 08/03/24 *Reason for visit:: Chest pain *History of present illness: This is a 48-year-old male with a past medical history of CAD, DM 2, chronic pain on opioids, prior history of significant trauma, diabetic foot ulcer of the left foot, history of CVA who presents emergency department today with complaints of chest pain after cardiac cath today. He went outpatient cardiac cath and had severe disease to the proximal LAD with successful stenting of the proximal to mid LAD with 2 continuous drug-eluting stents. He said he went home and after medications were off he developed a twinge of pain in the center of his chest. Describes the pain as metallic and nonradiating. States that he feels like something is scraping against his chest . He became nervous that this was something ominous given his recent cath and presented to the emergency department. Denies any diaphoresis or nausea with the pain. Nothing makes the pain better or worse. Emergency department workup unremarkable. EKG without ischemia. Troponin negative. Given his recent cath cardiology was consulted and recommends nitrates for pain, oxycodone, and Dilaudid as needed. Patient likely having reperfusion or arteritis pain. Given this he is admitted to the hospitalist service. [facility] Disclaimer: The information contained in this section may have been updated after the patient was seen, as this information can be updated by other users. Medical History (Updated 08/03/24 @ 04:27 by VALERY Castro) Depression Anxiety SOB (shortness of breath) Chest pain Abnormal findings on diagnostic imaging of heart and coronary circulation Abnormal nuclear cardiac imaging test History of tonsillitis Diabetes CVA (cerebral vascular accident) Skin induration Deviated septum Right maxillary sinus opacification Headache Chronic sinusitis Right sided facial pain Pain due to onychomycosis of toenail Neuropathy involving both lower extremities Bilateral foot pain Nail fungus Surgical History History of back surgery History of colon resection History of appendectomy History of laparotomy Family History Other Family history of diabetes mellitus Social History (Updated 08/03/24 @ 01:58 by Shae Engle RN) Smoking Status: Current every day smoker alcohol intake: never substance use type: denies use current occupational status: retired Travel in the last 8 weeks?: None caffeine: No Have you lived/traveled outside [place] in past 30 days?: No Contact w/someone who lives/traveled outside [place] past 30 days?: No Exposure to someone with infectious disease in past 14 days?: No Do you have a fever (greater than 100.4 F or 38 C)?: No Have you tested positive for COVID-19?: No Exposed to someone with COVID-19 in past 14 days?: No Do you have a sore throat?: No Do you have a cough?: No Do you have any weakness?: No Do you have any diarrhea?: No Are you experiencing any unusual bleeding?: No Do you have any muscle aches/pain?: No Do you have any abdominal pain?: No Are you experiencing loss of taste or smell?: No Other Medical History Have you received the Flu Vaccine for this season: Yes Have you received the Pneumonia Vaccine: Yes Review of Systems Review of Systems Review of systems:: pertinent systems reviewed and negative unless documented below Review of systems (narrative): Negative except for HPI Meds Home Medications and Allergies Home Medications ?Medication ?Instructions ?Recorded ?Confirmed ?Type hydroxyzine HCl 25 mg tablet 25 mg PO NEEDED PRN Anxiety 08/15/22 08/02/24 Hi story levetiracetam 750 mg tablet 1,500 mg PO BID seizure 08/15/22 08/02/24 History lorazepam 1 mg tablet 1 mg PO TID Anxiety 08/15/22 08/02/24 History losartan 50 mg tablet 100 mg PO DAILY Hypertension 08/15/22 08/02/24 History oxycodone 10 mg tablet 10 mg PO Q4HP PRN Pain 08/15/22 08/02/24 History pregabalin 150 mg capsule 150 mg PO TID Tremors 08/15/22 08/02/24 History rosuvastatin 10 mg tablet 10 mg PO DAILY Cholesterol 08/15/22 08/02/24 History topiramate 25 mg tablet 25 mg PO HS Headache 08/15/22 08/02/24 History insulin glargine 100 unit/mL 90 unit SQ BID 04/14/23 08/02/24 History subcutaneous solution (Lantus U-100 Insulin) clopidogrel 75 mg tablet (Plavix) 75 mg PO DAILY 05/06/23 08/02/24 History fenofibrate nanocrystallized 48 mg 48 mg PO HS 05/06/23 08/02/24 History tablet folic acid 400 mcg tablet 400 mg PO DAILY 05/06/23 08/02/24 History insulin aspart U-100 100 unit/mL 1 sliding scale dose SQ 05/06/23 08/02/24 History subcutaneous solution (Novolog USEASDIRECTD U-100 Insulin aspart) insulin syringe-needle U-100 1 mL #10 ea 05/06/23 08/02/24 History 31 gauge x 5/16 (BD Insulin Syringe Ultra-Fine) pantoprazole 20 mg tablet,delayed 20 mg PO DAILY PRN Heartburn 05/06/23 08/02/24 History release (Protonix) potassium chloride 10 mEq 10 meq PO DAILY 05/06/23 08/02/24 History capsule,extended release trazodone 50 mg tablet 50 mg PO HS 05/06/23 08/02/24 History baclofen 10 mg tablet 10 mg PO Q6H PRN . 06/17/23 08/02/24 History meclizine 25 mg tablet 25 mg PO TID PRN Dizziness 01/12/24 08/02/24 History promethazine 25 mg tablet 25 mg PO Q6H PRN Nausea 01/12/24 08/02/24 History calcitriol 0.25 mcg capsule 0.25 mcg PO DAILY 03/24/24 08/02/24 History empagliflozin 25 mg tablet 25 mg PO DAILY 03/24/24 08/02/24 History (Jardiance) mupirocin 2 % topical ointment 1 applic topical BID infection 14 03/29/24 08/02/24 Rx days #15 grams blood-glucose sensor (FreeStyle #1 ea 07/26/24 08/02/24 History Eugenie 3 Sensor device) flash glucose scanning reader #1 ea 07/26/24 08/02/24 History (FreeStyle Eugenie 2 [place]) doxycycline hyclate 100 mg capsule 100 mg PO BID infection 14 days 07/29/24 08/02/24 Rx #28 caps metoprolol succinate 100 mg 100 mg PO DAILY 08/02/24 08/02/24 History tablet,extended release 24 hr New Prescriptions to Start Prescriptions: Allergies Allergy/AdvReac Type Severity Reaction Status Date / Time aspirin Allergy Severe Anaphylaxis Verified 07/29/24 13:04 ibuprofen (From Motrin) Allergy Severe Anaphylaxis Verified 07/29/24 13:04 naproxen (From Aleve) Allergy Severe Anaphylaxis Verified 07/29/24 13:04 NSAIDS (Non-Steroidal Allergy Severe Anaphylaxis Verified 07/29/24 13:04 Anti-Inflamma bee venom protein (honey bee) Allergy Anaphylaxis Verified 07/29/24 13:04 metoclopramide (From Reglan) AdvReac Intermediate Agitated Verified 07/29/24 13:04 midazolam (From Versed) AdvReac Verified 08/02/24 08:27 Exam Data for Last 24 hours Vital signs and Labs for Last 24 Hours: Temp Pulse Resp BP Pulse Ox O2 Del Method 98.0 F 77 16 111/72 97 Room Air 08/03/24 00:00 08/03/24 00:00 08/03/24 00:00 08/03/24 00:00 08/03/24 00:00 08/03/24 03:00 Laboratory Results - last 24 hr 08/02/24 18:13: WBC 9.6, RBC 4.86, Hgb 14.4, Hct 42.8, MCV 88.1, MCH 29.6, MCHC 33.6, RDW 13.1, Plt Count 200, MPV 10.7 H, Neut % (Auto) 52.2, Lymph % (Auto) 34.7, [place] % (Auto) 8.3, Eos % (Auto) 3.9, Baso % (Auto) 0.6, Neut # (Auto) 5.0, Lymph # (Auto) 3.3, [place] # (Auto) 0.8, Eos # (Auto) 0.4, Baso # (Auto) 0.1, Sodium 138, Potassium 4.2, Chloride 106, Carbon Dioxide 24, Anion Gap 12.2, BUN 14, Creatinine 1.10, Estimated Creat Clear 107, Estimated GFR 71, Est GFR ( Amer) 86, Glucose 380 H D, Calcium 9.1, Total Bilirubin 0.5, AST 25, ALT 18, Alkaline Phosphatase 64, Troponin I < 0.01, Total Protein 7.1, Albumin 4.2, Globulin 2.9, Albumin/Globulin Ratio 1.4 08/02/24 23:21: POC Glucose 237 H 08/03/24 01:55: Troponin I < 0.01 I & O for Last 24 hours: Intake & Output 07/31/24 08/01/24 08/02/24 08/03/24 23:59 23:59 23:59 23:59 Intake Total 450 / 450 Output Total 0 / 0 Balance 0 / 450 450 / 450 Weight 98.515 kg Constitutional Constitutional: no acute distress *Routine HEENT Exam Head: Present normocephalic Eye: Present EOMI and PERRL ENT: Present mucous membranes moist *Routine Neck Exam Neck: Present supple; Absent lymphadenopathy *Routine Respiratory Exam Respiratory: Present CTA bilaterally *Routine Cardiovascular Exam Cardiovascular: Present RRR *Routine Abdominal Exam Abdominal: Present soft and normoactive bowel sounds; Absent tenderness *Routine Rectal Exam Rectal:: deferred *Routine Genitalia Exam Genitalia:: deferred *Routine Extremities Exam Extremities: Absent cyanosis, clubbing or edema *Routine Skin Exam Skin: Present warm; Absent rash *Routine Neurological Exam Neurological: Present alert and oriented X3 Assessment and Plan *Assessment and plan (1) Chest pain: Status: Acute Qualifiers: Ischemic chest pain type: unstable angina pectoris Category: Medical Code(s): R07.9 - Chest pain, unspecified (2) Arteritis: Status: Acute Category: Medical Code(s): I77.6 - Arteritis, unspecified (3) Diabetic ulcer of foot associated with type 2 diabetes mellitus, limited to breakdown of skin: Status: Acute Qualifiers: Diabetic foot ulcer location: unspecified part of foot Laterality: left Qualified Code(s): E11.621 - Type 2 diabetes mellitus with foot ulcer; L97.521 - Non-pressure chronic ulcer of other part of left foot limited to breakdown of skin Category: Medical Code(s): E11.621 - Type 2 diabetes mellitus with foot ulcer; L97.501 - Non-pressure chronic ulcer of other part of unspecified foot limited to breakdown of skin (4) Tobacco dependence syndrome: Status: Acute Category: Medical Code(s): F17.200 - Nicotine dependence, unspecified, uncomplicated (5) Hyperlipidemia: Status: Acute Qualifiers: Hyperlipidemia type: unspecified Qualified Code(s): E78.5 - Hyperlipidemia, unspecified Category: Medical Code(s): E78.5 - Hyperlipidemia, unspecified (6) Hypertension: Status: Acute Qualifiers: Hypertension type: unspecified Qualified Code(s): I10 - Essential (p rimary) hypertension Category: Medical Code(s): I10 - Essential (primary) hypertension (7) Coronary artery disease: Status: Acute Category: Medical Code(s): I25.10 - Atherosclerotic heart disease of [place] coronary artery without angina pectoris Plan #Chest pain #CAD Recent proximal LAD stenting today. Reported back to the emergency department several hours later after pain medicine wore off with midsternal sharp chest pain. Per cardiology, likely reperfusion/arteritis. Continue with nitrates, oxycodone and Dilaudid for pain can Repeat EKG with new or worsening symptoms #DM 2 Continue long-acting and sliding scale insulin #Chronic pain Continue home scheduled oxycodone, Lyrica #Seizure disorder Continue Keppra and Ativan per home medication regimen #HTN #HLD Continue home medications
--- NOTE | 2024-08-03 04:28 | ECG_ITS ---
APPROVED REPORT Exam: Resting ECG HR:57 bpm ECG Measurements Heart Rate 57 AXES RI 201 P 38 QRSd 101 QRS 18 QT 422 T 64 QTc 417 Conclusion SINUS BRADYCARDIA BORDERLINE ECG UNCONFIRMED REPORT Electronically signed by : Alex Levin MD 08/04/2024 07:45:38
[2024-08-03] MEDS: NITROGLYCERIN 0.4MG SL TABLET 0.4 MG SL (05:25)
[2024-08-03 06:08] LABS: POC Glucose,Bedside 240 (70-110)
[2024-08-03] MEDS: humaLOG 100 UNITS/ML 10ML VIAL (SSI) SUBCUT ×4 (06:22→21:30)
[2024-08-03 07:00] LABS: Basophils # 0.1 K/mm3 (0-0.2); Basophils % 0.7 % (0.1-2.0); Eosinophils # 0.4 Kmm3 (0.0-0.4); Eosinophils % 3.3 % (0.1-12.0); Hematocrit 43.1 % (42.0-52.0); Hemoglobin 14.3 g/dL (14.1-18.0); Immature Granulocytes # 0.04 10^3uL; Immature Granulocytes % 0.3 %; Lymphocytes # 3.9 K/mm3 (0.7-4.5); Lymphocytes % 32.6 % (10-50); Mean Corpuscular HGB Conc 33.2 g/dL (31.8-35.4); Mean Corpuscular Volume 90.4 fl (80-94); Mean Platelet Volume 10.7 fl (7.4-10.4); Monocytes % 8.5 % (1.7-9.3); Neutrophils # 6.6 K/mm3 (1.8-7.8); Neutrophils % 54.6 % (37.0-80.0); Nucleated Red Blood Cells # 0 10^3/uL; Nucleated Red Blood Cells % 0 %; Platelet Count 185 K/mm3 (142-424); Red Blood Count 4.77 M/mm3 (4.60-6.20); Red Cell Distribution Width 13.1 % (11.5-17.5); White Blood Count 12.1 K/mm3 (4.8-10.8)
[2024-08-03 07:12] LABS: Anion Gap 11.9 mEq/L (5-15); Blood Urea Nitrogen 12 mg/dl (9-20); Calcium 8.6 mg/dl (8.4-10.2); Carbon Dioxide 22 mmol/L (22.0-30.0); Chloride 105 mmol/L (98-107); Creatinine Clearance Estimated 155 mL/min (50-200); Estimated Glomerular Filt Rate 102 ml/min (>60); GFR (African American) 124 ML/MIN (>60); Glucose 220 mg/dl (74-100); Magnesium 1.9 mg/dl (1.6-2.3); Potassium 3.9 mmoL/L (3.5-5.1); Sodium 135 mmol/L (136-145)
[2024-08-03] MEDS: CLOPIDOGREL 75MG TAB 75 MG PO (08:25)
[2024-08-03] MEDS: levETIRAcetam 500 MG TABLET 1500 MG PO ×2 (08:25→20:55)
[2024-08-03] MEDS: MUPIROCIN 2% OINTMENT 22GM TUBE TP ×3 (08:26→20:58)
[2024-08-03] MEDS: LORazepam 1MG TABLET 1 MG PO ×3 (08:37→21:25)
[2024-08-03] MEDS: DOXYCYCLINE HYCL 100 MG TABLET PO ×2 (08:47→20:55)
--- NOTE | 2024-08-03 08:48 | HMH.PHAINT1 ---
Pharmacy Intervention Comments: home medication list verified using list from outpatient pharmacy and pt interview
--- NOTE | 2024-08-03 08:58 | CA_ITS ---
APPROVED REPORT EXAM: Comprehensive 2D, Doppler, and color-flow Echocardiogram Importer Or Exporter: Paula Hager CRT Ht: 6 ft 0 in Wt: 219lbs BSA: 2.21 BP: 112/59 mmHg Indications: STENTS 08/02/24, smoker, sob, DM, CVA. 2D Dimensions Left Atrium 3.68 cm LVEF (Randle's) 53.10 % RVID Base (AP4) 2.65 cm (M/F) 2.5-4.1 LV Volume 118.90 mL LVOT 2.04 cm (M/F) 1.5-2.5 LA Volume 37.10 mL LA Volume Index 16.80 mL/m2 (M/F) 16-34 EF AP4 54.00 % EF AP2 52.2 % EF BP 53.1 % GL Strain -16.3 % M-Mode Dimensions RVDd 2.88 cm (0.9-2.6) LVDd 4.75 cm (3.5-5.7) Ao Diam 3.61 cm (2.0-3.7) LVDs 2.98 cm (3.5-5.7) IVSd 1.41 cm (0.6-1.1) PWd 0.76 cm (0.6-1.1) EF (Teich) 67.20% FS 37.30% EDV (Teich) 104.90 mL TAPSE 2.12 (<1.7) ESV (Teich) 34.40 mL LV Diastology E Decel Time 239 (160-240 msec) E/A Ratio 1.08 MED E' 6.5 (>= 7 cm/sec) MED A' 10.90 cm/s E'/MED E' Ratio 12.42 (<= 14) LAT E' 10.3 (>= 10 cm/sec) LAT A' 12.30 cm/s E/LAT E' Ratio 7.83 (<= 14) Aortic Valve AoV Peak Jacob. 136.0 (50-130 cm/s) AO Peak GR. 7.50 mmHg Mitral Valve MV E Max Jacob. 81.0 (40-130 cm/s) MV A Velocity 75.0 (40-130 cm/s) E/A Ratio 1.08 MV Decel. Time 239 (160-240 ms) Tricuspid Valve TR P. Velocity 189.00 cm/s RAP Estimate 10.00 mmHg RVSP 24.30 mmHg Left Ventricle The left ventricle is normal size. The left ventricular systolic function is normal. The left ventricular ejection fraction is within the normal range. There is increased overall thickness. There is normal LV segmental wall motion. The left ventricular diastolic function is normal. LVEF is 55%. Right Ventricle The right ventricle is normal size. The right ventricular systolic function is normal. Atria The left atrium size is normal. The right atrium size is normal. There is no Doppler evidence of interatrial shunt. Aortic Valve Aortic valve is mildly thickened. There is no aortic valvular stenosis. Trace aortic regurgitation. Mitral Valve The mitral valve is normal in structure. No evidence of mitral valve stenosis. Trace mitral regurgitation. Tricuspid Valve Tricuspid valve is grossly normal in structure and function. Trace tricuspid regurgitation. There is insufficient TR jet to estimate RVSP. Pulmonic Valve The pulmonary valve is normal in structure. Trace pulmonic regurgitation. Great Vessels The aortic root is normal in size. IVC is normal in size and collapses >50% with inspiration. Pericardium There is no pericardial effusion. Other Information Study Quality: Fair Conclusion Normal biventricular systolic function. No significant valvular stenosis or regurgitation. Electronically signed by : Nedra Terrell MD 08/03/2024 11:48:09
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
[2024-08-03] MEDS: RANOLAZINE 500MG ER TABLET 500 MG PO ×2 (09:45→20:55)
[2024-08-03] MEDS: ISOSORBIDE MONO 60MG TAB.ER.24H 60 MG PO (09:45)
--- NOTE | 2024-08-03 10:20 | HMH.PTEV ---
Physical Therapy Evaluation Rehab PT IP Evaluation Start: 08/03/24 01:58 Freq: ONCE Status: Active Protocol: Document 08/03/24 09:11 KEYSHA (Rec: 08/03/24 10:19 KEYSHA [id number]) Subjective/History History History Per H&P: This is a 48-year- old male with a past medical history of CAD, DM 2, chronic pain on opioids, prior history of significant trauma, diabetic foot ulcer of the left foot, history of CVA who presents emergency department today with complaints of chest pain after cardiac cath today . He went outpatient cardiac cath and had severe disease to the proximal LAD with successful stenting of the proximal to mid LAD with 2 continuous drug-eluting stents . He said he went home and after medications were off he developed a twinge of pain in the center of his chest. Describes the pain as metallic and nonradiating. States that he feels like something is scraping against his chest . He became nervous that this was something ominous given his recent cath and presented to the emergency department. Denies any diaphoresis or nausea with the pain. Nothing makes the pain better or worse. Subjective Subjective PLOF: IND with cane or walker. Balance impairments at baseline. Multiple falls reported (~ 1 a month). Still drives. Home: Lives with parents. Pt's mom manages medications and assists as needed. No stairs. Available assistance: Mother able to assist. New diagnosis of cancer in past 12 No months? [facility] How much help from another person do you currently need... Turning from your back to your side None while in a flat bed without using bedrails? Moving from lying on back to sitting on None the side of a flat bed without using bedrails? Moving to and from a bed to a chair ( None including a wheelchair)? Standing up from a chair using your arms None ? (e.g., wheelchair, bedside chair) Walking in hospital room? None Climbing 3-5 steps with a railing? A little Mobility Score 23 Mobility Level [facility] You Mobility Calculator Mobility 7 Walk 25 feet or more Rehab PT IP Eval Objective Appearance Patient Behavior Appropriate,Cooperative Patient Orientation Person Difficulty following instructions none Speech Pattern Rambling Ambulation Patient Able to Ambulate Yes Ambulation Observation IP General Gait Pattern Observation Wide Based Gait Ambulation Distance (feet) 20 Ambulation Assistive Device Straight Cane Ambulation Ability Independent,Supervision/Stand by Balance Ability to Arise Able, uses arms to help Sitting Balance Steady, safe Standing Balance Steady, wide stance Transfers Bed Transfer Ability Independent Sit to Stand Bed Transfer Ability Independent Rehab PT IP prob,goals,plan Problems Date of Evaluation: 08/03/24 Rehab Potential Rehab Potential Innapropriate for Skilled Therapy Discharge Plan PT Discharge Plan Initial PT evaluation performed. Pt most appropriate to return home d/t Modified IND with all mobility. Pt not appropriate for skilled acute care PT at this time. Eval Complexity Eval Charge Codes 37493 - Moderate Complexity PHYSICIAN CERTIFICATION: I certify the specified therapy services for Kingsley Hernandez are required, authorized, and reviewed every 30 days.
--- NOTE | 2024-08-03 10:58 | HMH.OTEV ---
OT Inpatient Evaluation Rehab OT IP Evaluation Start: 08/03/24 01:58 Freq: ONCE Status: Active Protocol: Document 08/03/24 10:42 [facility] (Rec: 08/03/24 10:58 [id number]) Rehab OT IP Assessment Subjective History Pt oriented x 3 on arrival. Pt agreeable to engage in therapy evaluation. Pt admitted on 08/03/24 due to chest pain. History and physical: This is a 48-year-old male with a past medical history of CAD, DM 2, chronic pain on opioids, prior history of significant trauma, diabetic foot ulcer of the left foot, history of CVA who presents emergency department today with complaints of chest pain after cardiac cath today. He went outpatient cardiac cath and had severe disease to the proximal LAD with successful stenting of the proximal to mid LAD with 2 continuous drug -eluting stents. He said he went home and after medications were off he developed a twinge of pain in the center of his chest. Describes the pain as metallic and nonradiating. States that he feels like something is scraping against his chest . He became nervous that this was something ominous given his recent cath and presented to the emergency department. Denies any diaphoresis or nausea with the pain. Nothing makes the pain better or worse. Emergency department workup unremarkable. EKG without ischemia. Troponin negative. Given his recent cath cardiology was consulted and recommends nitrates for pain, oxycodone, and Dilaudid as needed. Patient likely having reperfusion or arteritis pain . Subjective Prior to being in the hospital pt lived in a rental home of his parents. Pt presents with incessant talking and perseverating about extensive medial history/issues. Pt claims normally he is independent with ADLs; dressing, bathing and feeding. Pt claims normally he requires assistance from family (parents) with IADLs. Pt also still drives. Objective Patient Orientation Person,Place,Birthday Right Upper Extremity Gross ROM WFL Left Upper Extremity Gross ROM WFL Bed Mobility bed mobility-scooting,bed mobility - supine/sit Assist Level Supervision/Stand by Transfer Training Sit/Stand Transfer Assist Level Supervision/Stand by Lower Body Dressing Ability Standby Assistance Performing Toilet Hygiene Ability Standby Assistance Overall Commode/Toilet Transfer Ability Standby Assistance Commode/Toilet Transfer Technique Sit to/from Ambulatory Rehab OT IP prob,goals,plan Problems Date of Evaluation: 08/03/24 Rehab Potential Rehab Potential Innapropriate for Skilled Therapy Discharge Plan OT Discharge Plan Pt appears to be at his baseline with functional transfers and ADLs. Pt can return home with parent assistance once he is medically stable per physician . Eval Complexity Eval Charge Codes 45370 - Moderate Complexity PHYSICIAN CERTIFICATION: I certify the specified therapy services for Kingsley Hernandez are required, authorized, and reviewed every 30 days.
[2024-08-03 11:13] LABS: POC Glucose,Bedside 298 (70-110)
--- NOTE | 2024-08-03 12:29 | CT_ITS ---
FINAL REPORT TECHNIQUE: Thin section axial CT with contrast with multiplanar reconstruction This study was performed with techniques to keep radiation doses as low as reasonably achievable, (ALARA). Individualized dose reduction techniques using automated exposure control or adjustment of mA and/or kV according to the patient''s size were employed. CLINICAL HISTORY: chest pain after cardiac cath COMPARISON: 12/09/2023 FINDINGS: Pulmonary vessels enhance in normal fashion without evidence of embolism. Thoracic aorta shows no dissection or aneurysm. No pulmonary mass or infiltrate is present. There are stable small granulomas. There is no significant pleural effusion. There is no significant pericardial effusion. No mediastinal or hilar adenopathy is present. IMPRESSION: No evidence of pulmonary embolism or dissection. Reviewed, Interpreted and Dictated by Omari Tabares MD Transcribed by Karin Melgar Authenticated and [facility]
[2024-08-03] MEDS: AMLODIPINE 2.5MG TABLET 2.5 MG PO (12:50)
[2024-08-03] MEDS: 0.9 % SODIUM CHLORIDE 50 ML VIAL IV (13:43)
[2024-08-03] MEDS: SODIUM CHLORIDE 0.9% 10ML SYR (RAD ONLY) 10 ML IV (13:43)
[2024-08-03] MEDS: IOPAMIDOL-370 (76%);100ML BOTTLE 70 ML IV (13:44)
[2024-08-03] MEDS: PROMETHAZINE 50 MG/ML 25 MG IV ×2 (13:59→22:25)
[2024-08-03] MEDS: BELLADONNA ALKALOIDS 60 ML ML PO (14:02)
[2024-08-03] MEDS: ACETAMINOPHEN 325MG TAB 650 MG PO (17:37)
--- NOTE | 2024-08-03 18:41 | PC.NURSE ---
Pt is A&Ox4. Vital signs stable tolerating room air. Right radial cath site dressing c/d/i. ECHO and chest CTA ordered and completed. Pt requested that we used his freestyle lorna for blood glucose monitoring. Hospitalist made aware and okay due to calibration being accurate with glucometer. Pt medicated numerous time per pt request throughout shift with pain medication per MAY. Pt insistent on pain med administration at minimal frequency. Educated pt on attempting discontinuation of IV pain meds before discharge tomorrow. Pt extremely cautious about care requiring continuos reassurance of plan of care and specific medications and their application to his current condition. Pt educated/reassured on each medication prior to administration. Pt also educated on fall risk/need to call out when exiting his bed due to administration of high fall risk medications. Pt resting supine in bed with no further needs voiced at this time. Call light within reach.
[2024-08-03] MEDS: INSULIN GLARGINE 100 UNITS/ML 10ML VIAL 30 UNIT SUBCUT (21:30)
[2024-08-04] VITALS: BP 131/69; PULSE 79; PULSE 80; RESP 14; TEMP 36.4; O2SAT 99
[2024-08-04] MEDS: TRAZODONE 50MG TABLET 50 MG PO
[2024-08-04 04:00] VITALS: BP 118/66; PULSE 70; PULSE 77; RESP 16; TEMP 36.6; O2SAT 94; BMI 29.5
--- NOTE | 2024-08-04 04:25 | PC.NURSE ---
Addendum entered by Shae Engle RN 08/04/24 06:05: Patient requested to have one more dose of Dilautid and PO Ativan this morning per MAY due to reports of severe pain and anxiety. Original Note: Patient is alert and oriented x4. He was observed to have eyes closed, respirations even and unlabored on room air, and no apparent distress since around midnight. While awake, the patient complained of sharp, digging chest pain, of which was treated with oxycodone and one dose of Dilautid per MAY. He was educated earlier this shift about the significance of weaning off of intravenous pain medications due to the documented anticipation of discharge later today if stable; the patient verbalized an understanding of this and was reassured by staff about his ongoing plan of care. Thus far, the patient has not had any further complaints of worsening chest pain, although it continues to remain present for him. Remains pleasant-natured with overnight stocker staff at this time. Phenergan was also given per MAY due to a complaint of nausea and so that the patient could attempt to eat without throwing up. After receiving it, the patient was able to consume his leftover turkey sandwich and ice cream cups. The patient tolerated these items very well without nausea/vomiting. Auscultation of heart, lungs, and bowel sounds within normal findings. No bowel movement this shift. Scheduled medications were administered as appropriately per MAY. ACHS glucose checks were performed via [employer] Eugenie 3 glucose monitoring device (previously approved to use by ). He continues to ambulate independently with standby assistance as needed + personal cane usage. Patient's closed, healing ulcer on the ball of his left foot was assessed this shift. The dressing was changed again (on 08/03/24, during this overnight stocker) using aseptic technique. Mupirocin cream was also applied during the dressing change. Xeroform, sterile 4x4 gauze pad, half of roll of cotton Kerlix, and Coban were used for the dressing. The patient tolerated the procedure well without any complaints of pain to the affected foot. At this time, the patient is resting in bed without any further complaints. No new needs at this time. Patient continues to refuse seizure pads despite history of seizures. Call light within reach.
[2024-08-04] MEDS: LORazepam 1MG TABLET 1 MG PO (05:25)
[2024-08-04] MEDS: OXYCODONE 5MG IMMEDIATE RELEASE TABLET 10 MG PO ×2 (05:25→09:28)
[2024-08-04] MEDS: humaLOG 100 UNITS/ML 10ML VIAL (SSI) SUBCUT (05:45)
[2024-08-04] MEDS: HYDROMORPHONE 2MG/ML SYRINGE 1 MG IV (05:45)
[2024-08-04 07:54] VITALS: BP 133/76; PULSE 72; RESP 18; TEMP 36.7; O2SAT 99
[2024-08-04] MEDS: PROMETHAZINE 50 MG/ML 25 MG IV (08:13)
[2024-08-04] MEDS: AMLODIPINE 2.5MG TABLET 2.5 MG PO (08:23)
[2024-08-04] MEDS: ISOSORBIDE MONO 60MG TAB.ER.24H 60 MG PO (08:24)
[2024-08-04] MEDS: CLOPIDOGREL 75MG TAB 75 MG PO (08:24)
[2024-08-04] MEDS: IRBESARTAN 150MG TAB 150 MG PO (08:24)
[2024-08-04] MEDS: MUPIROCIN 2% OINTMENT 22GM TUBE TP (08:25)
[2024-08-04] MEDS: levETIRAcetam 500 MG TABLET 1500 MG PO (08:25)
[2024-08-04] MEDS: METOPROLOL SUCCINATE XL 100MG TABLET 100 MG PO (08:25)
[2024-08-04] MEDS: EMPAGLIFLOZIN 25MG TABLET 25 MG PO (08:25)
[2024-08-04] MEDS: RANOLAZINE 500MG ER TABLET 500 MG PO (08:26)
[2024-08-04] MEDS: PREGABALIN 50MG CAPSULE 150 MG PO (08:34)
--- NOTE | 2024-08-04 08:35 | EXP.CARD.PN ---
Subjective Subjective Date: 08/04/24 Time: 08:36 Principal diagnosis: Chest pain Interval history: 48-year-old white male admitted for chest pain post coronary stenting. Workup here in the hospital unremarkable with diagnosis of arteritis/coronary spasm. Multiple antianginal/spasm agents on board and patient is feeling better today. Exam Data for Last 24 hours Vital signs and Labs for Last 24 Hours: Temp Pulse Resp BP Pulse Ox O2 Del Method 98.1 F 72 18 133/76 99 Room Air 08/04/24 07:54 08/04/24 07:54 08/04/24 07:54 08/04/24 07:54 08/04/24 07:54 08/04/24 07:54 Laboratory Results - last 24 hr 08/03/24 11:05: POC Glucose 298 H I & O for Last 24 hours: Intake & Output 08/01/24 08/02/24 08/03/24 08/04/24 11:59 11:59 11:59 11:59 Intake Total 1050 / 1050 1573 / 1573 Output Total 0 / 0 0 / 0 Balance 1050 / 1050 1573 / 1573 Weight 219 lb 4 oz 222 lb 8 oz Constitutional Constitutional: no acute distress *Routine Respiratory Exam Respiratory: Present CTA bilaterally *Routine Cardiovascular Exam Cardiovascular: Present RRR Progress Note: A&P Assessment and plan (1) Chest pain: Status: Acute (2) Coronary artery disease: Status: Acute (3) Arteritis: Status: Acute (4) Hypertension: Status: Acute (5) Hyperlipidemia: Status: Acute (6) Chronic pain disorder: Status: Acute (7) Diabetes: Status: Acute Assessment and Plan Assessment and Plan for All Diagnoses:: 1. Chest pain post cardiac stenting consistent with arteritis/coronary vasospasm -Troponins normal x 2 -Echo negative for pericardial effusion or new wall motion abnormality -CTA of the chest negative for dissection -Continue isosorbide, Ranexa and amlodipine in addition to patient's home medication of metoprolol -Continue Plavix alone. Patient has an anaphylactic allergy to aspirin. 2. Hypertension -Continue metoprolol and losartan -Echo, 03/2024, EF 55% and normal 3. Hyperlipidemia -Continue Crestor and fenofibrate with recent LDL 31 4. Chronic pain disorder -History of spinal surgery -On baclofen, Ativan, oxycodone, trazodone 5. Diabetes mellitus -On Jardiance and insulin Clinically stable from a cardiac standpoint for discharge home. He states he mentally feels better knowing that everything has been checked with no abnormalities found. Home medication recommendations: Amlodipine 2.5 mg daily Isosorbide mononitrate 60 mg daily Ranexa 500 mg twice daily Metoprolol succinate 100 mg daily Plavix 75 mg daily Resume home losartan dose of 50 mg daily Pantoprazole 40 mg daily Resume home dose of rosuvastatin 10 mg daily Jardiance 25 mg daily Follow-up in our office in 1 week.
--- NOTE | 2024-08-04 09:05 | EXP.DC.SUM ---
General Admission date:: 08/02/24 HPI HPI HPI: This is a 48-year-old male with a past medical history of CAD, DM 2, chronic pain on opioids, prior history of significant trauma, diabetic foot ulcer of the left foot, history of CVA who presents emergency department today with complaints of chest pain after cardiac cath today. He went outpatient cardiac cath and had severe disease to the proximal LAD with successful stenting of the proximal to mid LAD with 2 continuous drug-eluting stents. He said he went home and after medications were off he developed a twinge of pain in the center of his chest. Describes the pain as metallic and nonradiating. States that he feels like something is scraping against his chest . He became nervous that this was something ominous given his recent cath and presented to the emergency department. Denies any diaphoresis or nausea with the pain. Nothing makes the pain better or worse. Emergency department workup unremarkable. EKG without ischemia. Troponin negative. Given his recent cath cardiology was consulted and recommends nitrates for pain, oxycodone, and Dilaudid as needed. Patient likely having reperfusion or arteritis pain. Given this he is admitted to the hospitalist service. Hospital Course Hospital Course Hospital Course: Has been chest chanel free, likely sequalae of post [facility] Kingsley Hernandez is a 48-year-old male who presented with chest pain after receiving 2 stents to the LAD the day prior. #Chest pain #CAD with stents ? Recent proximal LAD stenting today. Reported back to the emergency department several hours later after pain medicine wore off with midsternal sharp chest pain. ? Troponins normal, EKG without acute ischemic changes. ? Per cardiology, likely reperfusion/arteritis. Improved with nitrates, oxycodone and Dilaudid for pain control. ? CTA chest without PE or dissection. ? Started amlodipine 2.5 mg, Imdur 60 mg, ranolazine 500 mg twice daily. Chest pain resolved. ? Continue home Plavix 75 mg, metoprolol succinate 100 mg. Patient allergic to aspirin. Cardiology amenable to antiplatelet monotherapy. ? Will follow-up with cardiology within 1 week. #DM 2 ? Hemoglobin A1c 10.3%. ? Continue home regiment of insulin, Januvia, Jardiance. ? Will need close follow-up with PCP for further management. #Chronic pain ? Continue home oxycodone, Lyrica #Seizure disorder - Continue Keppra and Ativan per home medication regimen #Hypertension ? Continue home losartan. Exam Data for Last 24 hours Vital signs and Labs for Last 24 Hours: Temp Pulse Resp BP Pulse Ox O2 Del Method 98.1 F 72 18 133/76 99 Room Air 08/04/24 07:54 08/04/24 07:54 08/04/24 07:54 08/04/24 07:54 08/04/24 07:54 08/04/24 08:00 Laboratory Results - last 24 hr 08/03/24 11:05: POC Glucose 298 H I & O for Last 24 hours: Intake & Output 08/01/24 08/02/24 08/03/24 08/04/24 23:59 23:59 23:59 23:59 Intake Total 1890 / 2623 733 / 733 Output Total 0 / 0 0 / 0 0 / 0 Balance 0 / 450 1890 / 2623 733 / 733 Weight 98.515 kg 99.45 kg 100.924 kg Constitutional Constitutional: no acute distress *Routine Respiratory Exam Respiratory: Present CTA bilaterally *Routine Cardiovascular Exam Cardiovascular: Present RRR Results Data Completed and Pending Labs on day of discharge: Labs from last 24 hours 08/03/24 11:05 POC Glucose 298 H DS: Diagnosis Discharge Diagnosis (1) Chest pain: Status: Acute Code(s): R07.9 - Chest pain, unspecified Qualifiers: Chest pain type: other chest pain Qualified Code(s): R07.89 - Other chest pain (2) Coronary artery disease: Status: Acute Code(s): I25.10 - Atherosclerotic heart disease of [place] coronary artery without angina pectoris Qualifiers: Associated angina: with other forms of angina Coronary Disease-Associated Artery/Lesion type: [place] artery [place] vs. transplanted heart: [place] heart Qualified Code(s): I25.118 - Atherosclerotic heart disease of [place] coronary artery with other forms of angina pectoris (3) Arteritis: Status: Acute Code(s): I77.6 - Arteritis, unspecified (4) Hypertension: Status: Acute Code(s): I10 - Essential (primary) hypertension Qualifiers: Hypertension type: unspecified Qualified Code(s): I10 - Essential (primary) hypertension (5) Hyperlipidemia: Status: Acute Code(s): E78.5 - Hyperlipidemia, unspecified Qualifiers: Hyperlipidemia type: unspecified Qualified Code(s): E78.5 - Hyperlipidemia, unspecified (6) Chronic pain disorder: Status: Acute Code(s): G89.4 - Chronic pain syndrome (7) Diabetes: Status: Acute Code(s): E11.9 - Type 2 diabetes mellitus without complications Qualifiers: Diabetes mellitus complication detail: with other circulatory complications Diabetes mellitus complication status: with circulatory complication Diabetes mellitus fdc insulin use: with fdc use Diabetes mellitus type: type 2 Qualified Code(s): E11.59 - Type 2 diabetes mellitus with other circulatory complications; Z79.4 - [facility] (current) use of insulin Meds Home Medications and Allergies Home Medications ?Medication ?Instructions ?Recorded ?Confirmed ?Type levetiracetam 750 mg tablet 1,500 mg PO BID Seizures 08/15/22 08/02/24 History lorazepam 1 mg tablet 1 mg PO TID Seizures 08/15/22 08/02/24 History losartan 50 mg tablet 50 mg PO DAILY Hypertension 08/15/22 08/03/24 History oxycodone 10 mg tablet 10 mg PO Q4HP PRN Moderate Pain 08/15/22 08/02/24 History (Scale Score 5-6) pregabalin 150 mg capsule 150 mg PO TID Tremors 08/15/22 08/02/24 History rosuvastatin 10 mg tablet 10 mg PO DAILY Cholesterol 08/15/22 08/02/24 History topiramate 25 mg tablet 25 mg PO HS Headache prevention 08/15/22 08/03/24 History insulin glargine 100 unit/mL 90 unit SQ BID 04/14/23 08/02/24 History subcutaneous solution (Lantus U-100 Insulin) clopidogrel 75 mg tablet (Plavix) 75 mg PO DAILY 05/06/23 08/02/24 History fenofibrate nanocrystallized 48 mg 48 mg PO HS 05/06/23 08/02/24 History tablet folic acid 400 mcg tablet 400 mg PO DAILY 05/06/23 08/02/24 History insulin aspart U-100 100 unit/mL 1 sliding scale dose SQ 05/06/23 08/02/24 History subcutaneous solution (Novolog USEASDIRECTD U-100 Insulin aspart) insulin syringe-needle U-100 1 mL #10 ea 05/06/23 08/02/24 History 31 gauge x 5/16 (BD Insulin Syringe Ultra-Fine) pantoprazole 20 mg tablet,delayed 20 mg PO DAILY PRN Heartburn 05/06/23 08/02/24 History release (Protonix) potassium chloride 10 mEq 10 meq PO DAILY 05/06/23 08/02/24 History capsule,extended release trazodone 50 mg tablet 50 mg PO HS 05/06/23 08/02/24 History baclofen 10 mg tablet 10 mg PO Q6HP PRN muscle spasms 06/17/23 08/03/24 History promethazine 25 mg tablet 25 mg PO Q6H PRN Nausea 01/12/24 08/02/24 History calcitriol 0.25 mcg capsule 0.25 mcg PO MOWEFR 03/24/24 08/03/24 History empagliflozin 25 mg tablet 25 mg PO DAILY 03/24/24 08/02/24 History (Jardiance) blood-glucose sensor (FreeStyle #1 ea 07/26/24 08/02/24 History Eugenie 3 Sensor device) flash glucose scanning reader #1 ea 07/26/24 08/02/24 History (FreeStyle [place] 2 [place]) doxycycline hyclate 100 mg capsule 100 mg PO BID infection 14 days 07/29/24 08/02/24 Rx #28 caps metoprolol succinate 100 mg 100 mg PO DAILY 08/02/24 08/02/24 History tablet,extended release 24 hr amlodipine 2.5 mg tablet 2.5 mg PO DAILY 30 days #30 tabs 08/04/24 Rx isosorbide mononitrate 60 mg 60 mg PO DAILY 30 days #30 tabs 08/04/24 Rx tablet,extended release 24 hr ranolazine 500 mg tablet,extended 500 mg PO BID 30 days #60 tabs 08/04/24 Rx release,12 hr New Prescriptions to Start Prescriptions: amlodipine Kinza,Yang isosorbide mononitrate Kinza,Yang ranolazine Yang Echols Allergies Allergy/AdvReac Type Severity Reaction Status Date / Time aspirin Allergy Severe Anaphylaxis Verified 07/29/24 13:04 ibuprofen (From Motrin) Allergy Severe Anaphylaxis Verified 07/29/24 13:04 naproxen (From Aleve) Allergy Severe Anaphylaxis Verified 07/29/24 13:04 NSAIDS (Non-Steroidal Allergy Severe Anaphylaxis Verified 07/29/24 13:04 Anti-Inflamma bee venom protein (honey bee) Allergy Anaphylaxis Verified 07/29/24 13:04 metoclopramide (From Reglan) AdvReac Intermediate Agitated Verified 07/29/24 13:04 midazolam (From Versed) AdvReac Verified 08/02/24 08:27 Discharge Plan Disposition Patient Disposition: Home, Self-Care Condition: Fair Follow up Plan Follow up with: Vickey Ibarra PA [Physician [employer] Pad [employer]] - 08/16/24 1:15 pm Prescriptions/Medication Reconciliation: New amlodipine 2.5 mg Tablet 2.5 mg PO DAILY 30 Days Qty: 30 0RF isosorbide mononitrate 60 mg Tablet Extended Release 24 Hr 60 mg PO DAILY 30 Days Qty: 30 0RF ranolazine 500 mg Tablet Extended Release 12 Hr 500 mg PO BID 30 Days Qty: 60 0RF Continued potassium chloride 10 mEq capsule, extended release 10 meq PO DAILY trazodone 50 mg tablet 50 mg PO HS Patient Comments: TAKE 1 TABLET BY MOUTH EVERY NIGHT AT BEDTIME clopidogrel [Plavix] 75 mg tablet 75 mg PO DAILY folic acid 400 mcg tablet 400 mg PO DAILY Patient Comments: TAKE 1 TABLET BY MOUTH ONCE DAILY pantoprazole [Protonix] 20 mg tablet,delayed release (DR/EC) 20 mg PO DAILY PRN (Reason: Heartburn) insulin aspart U-100 [Novolog U-100 Insulin aspart] 100 unit/mL solution 1 sliding scale dose SQ USEASDIRECTD (DME) insulin syringe-needle U-100 [BD Insulin Syringe Ultra-Fine] 1 mL 31 gauge x 5/16 syringe See Rx Instructions .ROUTE .MEDSUPPLY Qty: 10 Patient Comments: USE DIRECTED SUBCUTANEOUS FOUR TIMES DAILY Rx Instructions: As directed fenofibrate nanocrystallized 48 mg tablet 48 mg PO HS baclofen 10 mg tablet 10 mg PO Q6HP PRN (Reason: muscle spasms) calcitriol 0.25 mcg capsule 0.25 mcg PO MOWEFR Patient Comments: TAKE 1 CAPSULE BY MOUTH 3 TIMES A WEEK Rx Instructions: Patient takes every other day in a week. Jardiance 25 mg tablet 25 mg PO DAILY Patient Comments: TAKE 1 TABLET BY MOUTH DAILY (DME) FreeStyle Eugenie 3 Sensor Device See Rx Instructions .ROUTE .MEDSUPPLY Qty: 1 Patient Comments: USE DIRECTED EVERY 15 DAYS Rx Instructions: As directed (DME) FreeStyle Eugenie 2 [place] [facility] See Rx Instructions .ROUTE .MEDSUPPLY Qty: 1 Patient Comments: USE DIRECTED Rx Instructions: As directed doxycycline hyclate 100 mg capsule 100 mg PO BID 14 Days Qty: 28 0RF insulin glargine [Lantus U-100 Insulin] 100 unit/mL solution 90 unit SQ BID Patient Comments: ADMINISTER 50 UNITS UNDER THE SKIN TWICE DAILY FOR 30 DAYS losartan 50 mg tablet 50 mg PO DAILY Patient Comments: TAKE ONE TABLET BY MOUTH DAILY topiramate 25 mg tablet 25 mg PO HS Patient Comments: TAKE ONE TABLET BY MOUTH AT BEDTIME levetiracetam 750 mg tablet 1,500 mg PO BID Patient Comments: TAKE TWO TABLETS BY MOUTH TWO TIMES A DAY lorazepam 1 mg tablet 1 mg PO TID Patient Comments: TAKE ONE TABLET BY MOUTH THREE TIMES A DAY rosuvastatin 10 mg tablet 10 mg PO DAILY Patient Comments: TAKE ONE TABLET BY MOUTH EVERY DAY pregabalin 150 mg capsule 150 mg PO TID Patient Comments: TAKE ONE CAPSULE BY MOUTH THREE TIMES A DAY oxycodone 10 mg tablet 10 mg PO Q4HP PRN (Reason: Moderate Pain (Scale Score 5-6)) Patient Comments: TAKE ONE TABLET BY MOUTH EVERY FOUR HOURS, MAXIMUM OF SIX TABLETS A DAY FOR PAIN promethazine 25 mg Tablet 25 mg PO Q6H PRN (Reason: Nausea) metoprolol succinate 100 mg tablet extended release 24 hr 100 mg PO DAILY Rx Instructions: TAKE 1 TABLET BY MOUTH DAILY Problem Reconciliation Problems Reviewed?: Yes Patient Discharge Instructions Patient Instructions: DI for Chest Pain Print Language: Sinhala Providers Primary Care Provider: Shamika Roy Admit Provider: Gus Can Attending Provider: Gus Can
[2024-08-04] MEDS: DOXYCYCLINE HYCL 100 MG TABLET PO (09:26)
--- NOTE | 2024-08-05 09:56 | SW/DCPLANNER ---
Spoke with patient on the phone. Patient stated that he is doing very well. Patient stated that he is aware of his upcoming appointments. Patient stated that his medicine was brought to his bedside before he was discharged. Patient stated that he has no concerns or questions at this time. Steff Hand
== END 2024-08-04 09:38 | disposition home or self-care (01) ==
LOC: ER 18:21 → ICU 21:13 → 2ND 21:57 → ICU 08-03 13:49
PROVIDERS: Nurse Practitioner Acute Care; Admitting Provider Internal Medicine Adolescent Medicine; Emergency Provider Emergency Medicine; PCP Nurse Practitioner; Visit Provider Internal Medicine Adolescent Medicine
DX: I25.118 Atherosclerotic heart disease of native coronary artery with other forms of angina pectoris (principal); R07.89 Other chest pain; I77.6 Arteritis, unspecified; I10 Essential (primary) hypertension; E78.5 Hyperlipidemia, unspecified; G89.4 Chronic pain syndrome; E11.59 Type 2 diabetes mellitus with other circulatory complications; E11.621 Type 2 diabetes mellitus with foot ulcer; L97.521 Non-pressure chronic ulcer of other part of left foot limited to breakdown of skin; F17.210 Nicotine dependence, cigarettes, uncomplicated; Z88.8 Allergy status to other drugs, medicaments and biological substances; I77.1 Stricture of artery; Z86.73 Personal history of transient ischemic attack (TIA), and cerebral infarction without residual deficits; Z91.030 Bee allergy status; Z79.899 Other long term (current) drug therapy; Z88.5 Allergy status to narcotic agent; Z88.6 Allergy status to analgesic agent; Z79.4 Long term (current) use of insulin; Z95.5 Presence of coronary angioplasty implant and graft
CPT/HCPCS: 36415; 71045; 71275; 80048; 80053; 82962; 83735; 84484; 85025; 93005; 93306; 97162; 97166; 99285; G0378; J1171; J2060; J2270; J2550; Q9967

== ENCOUNTER 2024-08-11 14:36 | Emergency (ER) | payer MEDICARE, MEDICAID, SELFPAY ==
--- NOTE | 2024-08-11 | XR_ITS ---
PROCEDURE INFORMATION: Exam: XR Left Knee Exam date and time: 08/11/2024 3:29 PM Age: 48 years old Clinical indication: Injury or trauma; Fall; Other: Pain TECHNIQUE: Imaging protocol: Radiologic exam of the left knee. Views: 3 views. COMPARISON: No relevant prior studies available. FINDINGS: Bones/joints: Osseous structures are intact. No fracture or malalignment. Joint surfaces are preserved. Soft tissues: Unremarkable. IMPRESSION: No acute bony abnormalities.
--- NOTE | 2024-08-11 | XR_ITS ---
PROCEDURE INFORMATION: Exam: XR Left Hip Exam date and time: 08/11/2024 3:26 PM Age: 48 years old Clinical indication: Injury or trauma; Fall; Other: Pain TECHNIQUE: Imaging protocol: Radiologic exam of the left hip. Views: 2 or 3 views hip with pelvis when performed. AP 1 view pelvis with 2 views hip COMPARISON: No relevant prior studies available. FINDINGS: Bones/joints: Transpedicular screws and Yip rods overlie the lumbar sacral spine. No visualized evidence for acute bony fracture or dislocation. Mild to moderate generalized bony degenerative changes. Bony structures appear otherwise unremarkable. The visualized sacral arches appear intact. Soft tissues: Unremarkable. Notes: If there is further concern, recommend follow-up radiographs or bone scan for complete assessment. IMPRESSION: 1. No acute bony findings. 2. Degenerative and postsurgical changes are demonstrated, as described above.
--- NOTE | 2024-08-11 | CT_ITS ---
PROCEDURE INFORMATION: Exam: CT Head Without Contrast Exam date and time: 08/11/2024 3:24 PM Age: 48 years old Clinical indication: Injury or trauma; Fall; Other: Pain TECHNIQUE: Imaging protocol: Computed tomography of the head without contrast. Radiation optimization: All CT scans at this facility use at least one of these dose optimization techniques: automated exposure control; mA and/or kV adjustment per patient size (includes targeted exams where dose is matched to clinical indication); or iterative reconstruction. COMPARISON: No relevant prior studies available. FINDINGS: Brain: There are focal areas of chronic encephalomalacia in the cerebellum, larger on the right. No acute intracranial hemorrhage or mass effect. Cerebral ventricles: No ventriculomegaly. Paranasal sinuses: Visualized sinuses are unremarkable. No fluid levels. Mastoid air cells: Visualized mastoid air cells are well aerated. Bones: Unremarkable. No acute fracture. Soft tissues: Unremarkable. IMPRESSION: No acute intracranial abnormality.
[2024-08-11] MEDS: ONDANSETRON 4MG/2ML VIAL 4 MG IV (15:15)
[2024-08-11] MEDS: MORPHINE 4MG/ML SYRINGE 4 MG IV (15:15)
[2024-08-11 15:30] VITALS: BP 115/64; PULSE 67; RESP 14; O2SAT 99; BMI 29.2
[2024-08-11 16:00] VITALS: BP 111/67; PULSE 67; PULSE 70; RESP 16; RESP 17; TEMP 36.7; O2SAT 96
--- NOTE | 2024-08-11 19:08 | ED_ITS ---
<Statement entered by Karissa Ayala DO - 08/11/24 22:08> I was consulted by the TONIE, and we discussed the complexity of the problems being addressed. I approved the treatment and management plan for this patient's care in the emergency department, thus performing a substantive portion of the medical decision making. Karissa Ayala DO Discharge Plan Disposition Patient Disposition: Home, Self-Care Prescriptions Prescriptions: No Action potassium chloride 10 mEq capsule, extended release 10 meq PO DAILY trazodone 50 mg tablet 50 mg PO HS Patient Comments: TAKE 1 TABLET BY MOUTH EVERY NIGHT AT BEDTIME clopidogrel [Plavix] 75 mg tablet 75 mg PO DAILY folic acid 400 mcg tablet 400 mg PO DAILY Patient Comments: TAKE 1 TABLET BY MOUTH ONCE DAILY pantoprazole [Protonix] 20 mg tablet,delayed release (DR/EC) 20 mg PO DAILY PRN (Reason: Heartburn) insulin aspart U-100 [Novolog U-100 Insulin aspart] 100 unit/mL solution 1 sliding scale dose SQ USEASDIRECTD (DME) insulin syringe-needle U-100 [BD Insulin Syringe Ultra-Fine] 1 mL 31 gauge x 5/16 syringe See Rx Instructions .ROUTE .MEDSUPPLY Qty: 10 Patient Comments: USE DIRECTED SUBCUTANEOUS FOUR TIMES DAILY Rx Instructions: As directed fenofibrate nanocrystallized 48 mg tablet 48 mg PO HS baclofen 10 mg tablet 10 mg PO Q6HP PRN (Reason: muscle spasms) calcitriol 0.25 mcg capsule 0.25 mcg PO MOWEFR Patient Comments: TAKE 1 CAPSULE BY MOUTH 3 TIMES A WEEK Rx Instructions: Patient takes every other day in a week. Jardiance 25 mg tablet 25 mg PO DAILY Patient Comments: TAKE 1 TABLET BY MOUTH DAILY (DME) FreeStyle Eugenie 3 Sensor Device See Rx Instructions .ROUTE .MEDSUPPLY Qty: 1 Patient Comments: USE DIRECTED EVERY 15 DAYS Rx Instructions: As directed (DME) FreeStyle Eugenie 2 Sloan Misc See Rx Instructions .ROUTE .MEDSUPPLY Qty: 1 Patient Comments: USE DIRECTED Rx Instructions: As directed doxycycline hyclate 100 mg capsule 100 mg PO BID 14 Days Qty: 28 0RF (DME) blood pressure monitor [Blood Pressure Kit] Kit See Rx Instructions .Route Qty: 1 0RF Rx Instructions: As directed insulin glargine [Lantus U-100 Insulin] 100 unit/mL solution 90 unit SQ BID Patient Comments: ADMINISTER 50 UNITS UNDER THE SKIN TWICE DAILY FOR 30 DAYS losartan 50 mg tablet 50 mg PO DAILY Patient Comments: TAKE ONE TABLET BY MOUTH DAILY topiramate 25 mg tablet 25 mg PO HS Patient Comments: TAKE ONE TABLET BY MOUTH AT BEDTIME levetiracetam 750 mg tablet 1,500 mg PO BID Patient Comments: TAKE TWO TABLETS BY MOUTH TWO TIMES A DAY lorazepam 1 mg tablet 1 mg PO TID Patient Comments: TAKE ONE TABLET BY MOUTH THREE TIMES A DAY rosuvastatin 10 mg tablet 10 mg PO DAILY Patient Comments: TAKE ONE TABLET BY MOUTH EVERY DAY pregabalin 150 mg capsule 150 mg PO TID Patient Comments: TAKE ONE CAPSULE BY MOUTH THREE TIMES A DAY oxycodone 10 mg tablet 10 mg PO Q4HP PRN (Reason: Moderate Pain (Scale Score 5-6)) Patient Comments: TAKE ONE TABLET BY MOUTH EVERY FOUR HOURS, MAXIMUM OF SIX TABLETS A DAY FOR PAIN promethazine 25 mg Tablet 25 mg PO Q6H PRN (Reason: Nausea) metoprolol succinate 100 mg tablet extended release 24 hr 100 mg PO DAILY Rx Instructions: TAKE 1 TABLET BY MOUTH DAILY isosorbide mononitrate 60 mg Tablet Extended Release 24 Hr 60 mg PO DAILY 30 Days Qty: 30 0RF ranolazine 500 mg Tablet Extended Release 12 Hr 500 mg PO BID 30 Days Qty: 60 0RF Referrals Follow up/Referrals: Provider,Referral, MD [Primary Care Provider, Medical] - See instructions Clinical Impressions Clinical Impression: Fall Qualifiers: Encounter type: initial encounter Qualified Code(s): W19.XXXA - Unspecified fall, initial encounter Print Language Print Language: Persian Discharge ED Provider: Karissa Ayala General Adult HPI General Stated complaint: fall/ left hip pain Time Seen by Provider: 08/11/24 14:45 History of Present Illness HPI narrative: Kingsley Is a 48-year-old male who presents emergency room tonight with complaints of a mechanical fall. Mr. Hernandez states he was walking in his house today and slipped on a plastic grocery bag landing on his left side. States he hit the left side of his head, no LOC noted. Reported immediate pain in his left hip and left knee. Patient states he has chronic pain in his left hip, is supposed to have a total hip replacement once he gets his A1c under control. Patient denies any neck or back pain. Does take Plavix on a daily basis. Patient reports his hip pain is a 7/10 currently. Was able to walk in here with his cane. Denies any numbness or tingling in his leg. No syncopal event prior to the fall, states he again slept on the plastic grocery bag. Denies any other complaints at this time. Please note that the above description of symptoms, and this electronic medical record under categorization of recalled from ER triage doctor by RN are reflective of an initial nursing assessment, however, is not reflective of my full history and physical exam that was personally taken and clarified. Consequentially, this proceeding description of symptoms, which may include the patient's cauterized chief complaint in the EMR, do not reflect my personal clinical impression, and the ultimate description of the history of present illness stated complaints should be deferred to this section of this note. Unless stated otherwise were congruent with the section of the note, additional signs, symptoms, or incongruence can be interpreted as in or accurate with my clinical impression. Related Data Home Medications ?Medication ?Instructions ?Recorded ?Confirmed levetiracetam 750 mg tablet 1,500 mg PO BID Seizures 0 08/15/22 08/10/24 lorazepam 1 mg tablet 1 mg PO TID Seizures 3 08/10/24 losartan 50 mg tablet 50 mg PO DAILY Hypertension 08/15/22 08/10/24 oxycodone 10 mg tablet 10 mg PO Q4HP PRN Moderate P ain 08/15/22 08/10/24 (Scale Score 5-6) pregabalin 150 mg capsule 150 mg PO TID Tremors 08/10/24 rosuvastatin 10 mg tablet 10 mg PO DAILY Cholesterol 0 08/15/22 08/10/24 topiramate 25 mg tablet 25 mg PO HS Headache prevent ion 08/15/22 08/10/24 insulin glargine 100 unit/mL 90 unit SQ BID 04/14/23 0 08/10/24 subcutaneous solution (Lantus U-100 Insulin) clopidogrel 75 mg tablet (Plavix) 75 mg PO DAILY 05/0608/10/24 fenofibrate nanocrystallized 48 mg 48 mg PO HS 4 08/10/24 tablet folic acid 400 mcg tablet 400 mg PO DAILY 05/06/23 insulin aspart U-100 100 unit/mL 1 sliding scale dose SQ 05/06/23 08/10/24 subcutaneous solution (Novolog USEASDIRECTD U-100 Insulin aspart) insulin syringe-needle U-100 1 mL #10 ea 05/06/2307/16 31 gauge x 5/16 (BD Insulin Syringe Ultra-Fine) pantoprazole 20 mg tablet,delayed 20 mg PO DAILY PRN H eartburn 05/06/23 08/10/24 release (Protonix) potassium chloride 10 mEq 10 meq PO DAILY 05/06/23 capsule,extended release trazodone 50 mg tablet 50 mg PO HS 05/06/23 5 baclofen 10 mg tablet 10 mg PO Q6HP PRN muscle spa sms 06/17/23 08/10/24 promethazine 25 mg tablet 25 mg PO Q6H PRN Nausea 12/1608/10/24 calcitriol 0.25 mcg capsule 0.25 mcg PO MOWEFR 5 08/10/24 empagliflozin 25 mg tablet 25 mg PO DAILY 03/24/24 (Jardiance) blood-glucose sensor (FreeStyle #1 ea 07/26/24 5 Eugenie 3 Sensor device) flash glucose scanning reader #1 ea 07/26/24 08/10/24 (FreeStyle Eugenie 2 Sloan) metoprolol succinate 100 mg 100 mg PO DAILY 08/02/24 0 08/10/24 tablet,extended release 24 hr Previous Rx's ?Medication ?Instructions ?Recorded doxycycline hyclate 100 mg capsule 100 mg PO BID infec tion 14 days 07/29/24 #28 caps isosorbide mononitrate 60 mg 60 mg PO DAILY 30 days #3 0 tabs 08/04/24 tablet,extended release 24 hr ranolazine 500 mg tablet,extended 500 mg PO BID 30 day s #60 tabs 08/04/24 release,12 hr blood pressure monitor (Blood #1 ea 08/10/24 Pressure Kit) Allergies Allergy/AdvReac Type Severity Reaction Status Date / Time aspirin Allergy Severe Anaphylaxis Verified 08/10/24 10:02 ibuprofen (From Motrin) Allergy Severe Anaphylaxis Verified 08/10/24 10:02 naproxen (From Aleve) Allergy Severe Anaphylaxis Verified 08/10/24 10:02 NSAIDS (Non-Steroidal Allergy Severe Anaphylaxis Verified 08/10/24 10:02 Anti-Inflamma bee venom protein (honey bee) Allergy Anaphylaxis Verified 08/10/24 10:02 metoclopramide (From Reglan) AdvReac Intermediate Agitated Verified 08/10/24 10:02 midazolam (From Versed) AdvReac Verified 08/10/24 10:02 PFSH PFS Disclaimer: The information contained in this section may have been updated after the patient was seen, as this information can be updated by other users. Medical History Depression Anxiety SOB (shortness of breath) Chest pain Abnormal findings on diagnostic imaging of heart and coronary circulation Abnormal nuclear cardiac imaging test History of tonsillitis Diabetes CVA (cerebral vascular accident) Skin induration Deviated septum Right maxillary sinus opacification Headache Chronic sinusitis Right sided facial pain Pain due to onychomycosis of toenail Neuropathy involving both lower extremities Bilateral foot pain Nail fungus Surgical History History of back surgery History of colon resection History of appendectomy History of laparotomy Family History Other Family history of diabetes mellitus Social History Smoking Status: Current every day smoker alcohol intake: never substance use type: denies use current occupational status: retired Travel in the last 8 weeks?: None caffeine: No Other Medical History Have you received the Flu Vaccine for this season: No Have you received the Pneumonia Vaccine: No ROS Obtained: Yes Systems reviewed as appropriate & no additional complaints except as documented Physical Exam General General appearance: alert and in no apparent distress Head Head exam: atraumatic and normocephalic Eye Eye exam: Present PERRL and EOMI Chest Chest inspection: Present symmetric chest wall rise Respiratory Respiratory exam: Present normal lung sounds bilaterally Cardiovascular Cardiovascular exam: Present regular rate and normal rhythm Abdominal Exam Abdominal exam: Present soft and normal bowel sounds; Absent tenderness Extremities Exam Extremities exam: Present full ROM Neurological Exam Neurological exam: Present alert and oriented X3 Skin Skin exam: Present warm, dry and intact Medical Decision Making Medical Records Screening: Per USPSTF and CDC recommendations, given the prevalence of disease in our region, it is our hospital?s policy to screen for HIV and viral Hepatitis for a ll patients aged 18 and over and those with ongoing risk factors. Len Inquiry Pt receiving controlled substance: No Vital Signs: 08/11/24 15:30 08/11/24 16:00 Pulse Rate 67 67 Respiratory Rate 14 16 Blood Pressure 115/64 111/67 02 Sat by Pulse Oximetry 99 96 Oxygen Delivery Method Room Air Room Air Orders (Tests/Meds): ED MEDICATIONS Discontinued Medications Generic Name Dose Route Start Last Admin Trade Name Jed PRN Reason Stop Dose Admin Morphine Sulfate 4 mg 08/11/24 15:10 Morphine 4mg/Ml Syringe IV 08/11/24 15:11 ONCE ONE Ondansetron HCl 4 mg 08/11/24 15:11 Ondansetron 4mg/2ml Vial IV 08/11/24 15:12 ONCE ONE ORDERS Category Date Time Status CT head/brain wo con Routine Cat Scan 08/11/24 Taken XR hip LT 2-3V w/pelvis Routine Exams 08/11/24 Taken XR knee LT 3V Routine Exams 08/11/24 Taken Medical Decision Narrative: In summary patient is an 48-year-old male who presents emergency department for evaluation after a mechanical fall with left hip, left knee pain, and hit his head, on Plavix. Patient is hemodynamically stable upon arrival, afebrile. Unremarkable physical exam, nonfocal exam. Legs are symmetrical, no external rotation, no shortening noted.. Differential diagnosis includes intracranial hemorrhage, right hip fracture, knee fracture. Initial workup will be conducted with CT of the head without contrast, plain films of the left knee and left hip. Initial interventions include multimodal pain control with pain medications. Initial workup reviewed by me and formal read of CT head did not show any acute intracranial hemorrhage, and formal read by me of the left knee and left hip did not show any acute fractures.. Upon repeat evaluation patient had acceptable decrease in pain with pain medication administration.. Given this patient appropriate for discharge as radiologist did not find anything fracture on his plain films, CT of the head was formally read as no acute intracranial hemorrhage. Patient agreeable to this plan of going home. Knows that he is to follow-up with his primary care physician and orthopedic surgeon as needed. Critical Care Critical Care Time Critical Care Time: No
== END 2024-08-11 16:00 | disposition home or self-care (01) ==
PROVIDERS: Emergency Provider Emergency Medicine
DX: M25.552 Pain in left hip (principal); M25.562 Pain in left knee; F17.210 Nicotine dependence, cigarettes, uncomplicated; W01.10XA Fall on same level from slipping, tripping and stumbling with subsequent striking against unspecified object, initial encounter
CPT/HCPCS: 70450; 73502; 73562; 96374; 96375; 99284; J2270; J2405

== ENCOUNTER 2024-09-08 21:20 | Emergency (ER) | payer MEDICARE, MEDICAID, SELFPAY ==
--- OUTSIDE RECORDS SUMMARY | 2011-02-15 15:00 | XMS_ITS | Encounter Summary ---
Author Organization [facility] Address [address] [place] [address] Care Team Providers Care Systems Integration Advisor Name Role Phone Mary Ann Henson MD Primary Care Provider U kam Encounter Details Date Type Department Care Team (Late st Contact Info) Description 02/15/2011 2:00 PM EST Hospital Encounter [facility] [address] [place] [address] Social History Tobacco Use Types Packs/Day Years [...] documented as of this encounter Care Teams Systems Integration Advisor Relationship Specialty Start Date End Date Mary Ann Henson MD PCP - General Family Medicine 11/26/10 03/13/13 documented as of this encounter
--- OUTSIDE RECORDS SUMMARY | 2011-02-18 15:00 | XMS_ITS | Encounter Summary ---
Author Organization [facility] Address [address] [place] [address] Care Team Providers Care Grinder And Plater Name Role Phone Mary Ann Henson MD Primary Care Provider U kam Encounter Details Date Type Department Care Team (Late st Contact Info) Description 02/18/2011 2:00 PM EST Hospital Encounter [facility] [address] [place] [address] Social History Tobacco Use Types Packs/Day Years [...] documented as of this encounter Care Teams Grinder And Plater Relationship Specialty Start Date End Date Mary Ann Henson MD PCP - General Family Medicine 11/26/10 03/13/13 documented as of this encounter
--- OUTSIDE RECORDS SUMMARY | 2011-02-22 15:00 | XMS_ITS | Encounter Summary ---
Author Organization [facility] Address [address] [place] [address] Care Team Providers Care Assistant Producer Name Role Phone Mary Ann Henson MD Primary Care Provider U kam Encounter Details Date Type Department Care Team (Late st Contact Info) Description 02/22/2011 2:00 PM EST Hospital Encounter [facility] [address] [place] [address] Social History Tobacco Use Types Packs/Day Years [...] as of this encounter Progress Notes * Kari Song, PT - 02/22/2011 3:01 PM EST Images [...] documented as of this encounter Care Teams Assistant Producer Relationship Specialty Start Date End Date Mary Ann Henson MD PCP - General Family Medicine 11/26/10 03/13/13 documented as of this encounter
--- OUTSIDE RECORDS SUMMARY | 2011-02-25 15:00 | XMS_ITS | Encounter Summary ---
Author Organization [facility] Address [address] [place] [address] Care Team Providers Care Display Manager Name Role Phone Mary Ann Henson MD Primary Care Provider U kam Encounter Details Date Type Department Care Team (Late st Contact Info) Description 02/25/2011 2:00 PM EST Hospital Encounter [facility] [address] [place] [id number] Social History Tobacco Use Types Packs/Day Years [...] as of this encounter Progress Notes * Magnus Juarez, PT - 02/25/2011 2:52 PM EST Images from the original note were not included. Physical Therapy Cancellation/No-show Note Patient Name: Kingsley Hernandez : 1975 Date: 02/25/2011 Cancels to date: 2 No-shows to date: [...] documented as of this encounter Care Teams Display Manager Relationship Specialty Start Date End Date Mary Ann Henson MD PCP - General Family Medicine 11/26/10 03/13/13 documented as of this encounter
--- OUTSIDE RECORDS SUMMARY | 2011-03-01 15:00 | XMS_ITS | Encounter Summary ---
Author Organization [facility] Address [address] [place] [address] Care Team Providers Care Rail Transportation Operator Name Role Phone Mary Ann Henson MD Primary Care Provider U kam Encounter Details Date Type Department Care Team (Late st Contact Info) Description 03/01/2011 2:00 PM EST Hospital Encounter [facility] [address] [place] [address] Social History Tobacco Use Types Packs/Day Years [...] documented as of this encounter Care Teams Rail Transportation Operator Relationship Specialty Start Date End Date Mary Ann Henson MD PCP - General Family Medicine 11/26/10 03/13/13 documented as of this encounter
--- NOTE | 2024-09-08 21:13 | ECG_ITS ---
APPROVED REPORT Exam: Resting ECG HR:79 bpm ECG Measurements Heart Rate 79 AXES VT 180 P 43 QRSd 90 QRS 3 QT 369 T 71 QTc 404 Conclusion SINUS RHYTHM NONSPECIFIC T-WAVE ABNORMALITY BORDERLINE ECG UNCONFIRMED REPORT Electronically signed by : MELISSA DENIS, 09/09/2024 06:14:28
--- NOTE | 2024-09-08 21:19 | PC.NURSE ---
Poison control contacted for
--- NOTE | 2024-09-08 21:21 | HMH.EDGENADL ---
Discharge Plan Disposition Patient Disposition: Xfer Psychiatric Hosp Prescriptions Prescriptions: No Action potassium chloride 10 mEq capsule, extended release 10 meq PO DAILY trazodone 50 mg tablet 50 mg PO HS Patient Comments: TAKE 1 TABLET BY MOUTH EVERY NIGHT AT BEDTIME clopidogrel [Plavix] 75 mg tablet 75 mg PO DAILY folic acid 400 mcg tablet 400 mg PO DAILY Patient Comments: TAKE 1 TABLET BY MOUTH ONCE DAILY pantoprazole [Protonix] 20 mg tablet,delayed release (DR/EC) 20 mg PO DAILY PRN (Reason: Heartburn) insulin aspart U-100 [Novolog U-100 Insulin aspart] 100 unit/mL solution 1 sliding scale dose SQ USEASDIRECTD (DME) insulin syringe-needle U-100 [BD Insulin Syringe Ultra-Fine] 1 mL 31 gauge x 5/16 syringe See Rx Instructions .ROUTE .MEDSUPPLY Qty: 10 Patient Comments: USE DIRECTED SUBCUTANEOUS FOUR TIMES DAILY Rx Instructions: As directed fenofibrate nanocrystallized 48 mg tablet 48 mg PO HS baclofen 10 mg tablet 10 mg PO Q6HP PRN (Reason: muscle spasms) calcitriol 0.25 mcg capsule 0.25 mcg PO MOWEFR Patient Comments: TAKE 1 CAPSULE BY MOUTH 3 TIMES A WEEK Rx Instructions: Patient takes every other day in a week. Jardiance 25 mg tablet 25 mg PO DAILY Patient Comments: TAKE 1 TABLET BY MOUTH DAILY (DME) FreeStyle Eugenie 3 Sensor Device See Rx Instructions .ROUTE .MEDSUPPLY Qty: 1 Patient Comments: USE DIRECTED EVERY 15 DAYS Rx Instructions: As directed (DME) FreeStyle Eugenie 2 Charmco Misc See Rx Instructions .ROUTE .MEDSUPPLY Qty: 1 Patient Comments: USE DIRECTED Rx Instructions: As directed (DME) blood pressure monitor [Blood Pressure Kit] Kit See Rx Instructions .Route Qty: 1 0RF Rx Instructions: As directed isosorbide mononitrate 60 mg tablet extended release 24 hr 60 mg PO DAILY Qty: 90 3RF ranolazine 500 mg tablet extended release 12 hr 500 mg PO BID Qty: 180 3RF insulin glargine [Lantus U-100 Insulin] 100 unit/mL solution 90 unit SQ BID Patient Comments: ADMINISTER 50 UNITS UNDER THE SKIN TWICE DAILY FOR 30 DAYS losartan 50 mg tablet 50 mg PO DAILY Patient Comments: TAKE ONE TABLET BY MOUTH DAILY topiramate 25 mg tablet 25 mg PO HS Patient Comments: TAKE ONE TABLET BY MOUTH AT BEDTIME levetiracetam 750 mg tablet 1,500 mg PO BID Patient Comments: TAKE TWO TABLETS BY MOUTH TWO TIMES A DAY lorazepam 1 mg tablet 1 mg PO TID Patient Comments: TAKE ONE TABLET BY MOUTH THREE TIMES A DAY rosuvastatin 10 mg tablet 10 mg PO DAILY Patient Comments: TAKE ONE TABLET BY MOUTH EVERY DAY pregabalin 150 mg capsule 150 mg PO TID Patient Comments: TAKE ONE CAPSULE BY MOUTH THREE TIMES A DAY oxycodone 10 mg tablet 10 mg PO Q4HP Patient Comments: TAKE ONE TABLET BY MOUTH EVERY FOUR HOURS, MAXIMUM OF SIX TABLETS A DAY FOR PAIN promethazine 25 mg Tablet 25 mg PO Q6H PRN (Reason: Nausea) metoprolol succinate 100 mg tablet extended release 24 hr 100 mg PO DAILY Rx Instructions: TAKE 1 TABLET BY MOUTH DAILY Clinical Impressions Clinical Impression: Intentional overdose of insulin, Suicide attempt Stand Alone Forms Stand Alone Forms: Transfer Record - ED Instructions Patient Instructions: Subjective Opioid Withdrawal Scale (SOWS) Print Language Print Language: [place] Discharge ED Provider: Francis Psoadas General Adult HPI <Karissa Ayala, - Last Filed: 09/08/24 23:23> General Chief complaint: Psychiatric Symptoms Stated complaint: overdose on insulin, intentional Time Seen by Provider: 09/08/24 21:27 History of Present Illness HPI narrative: This patient is a 48-year-old male presenting to the emergency department for evaluation after a suicide attempt. Patient has extensive past medical history including prior CVA with residual seizure disorder and cognitive impairment, chronic pain related to spine and hip issues, insulin-dependent diabetes, hypertension, hyperlipidemia, depression with prior suicide attempt by insulin overdose. Patient notes that he is tired of living and is done with everything, so he attempted to end his life today by overdosing on his insulin. He notes that at 6:00 PM, he injected approximately 90 units of NovoLog. He states that he did this 2 more times, as he felt it was not working fast enough, between 6 and 8 PM. He notes that he took a total of 540 units of insulin, but he only notes 3 x 90 unit injections. According to EMS, his fingerstick blood glucose initially was in the 100s with them and then in the 80s. They note he was stable en route. His Dexcom a few hours ago was reading in the 300s. Patient arrives involuntarily stating that he does not want help. His family called EMS and police. Police provide a suicide note that states I did this because I am done. My life (or more precisely my existence) has become unbearable. So let's just skip to what's pertinent, because if I somehow gained some level of consciousness I do not want to be tortured by people trying to help. First do not Narcan me! Like every other of the myriad of scripts I take, my only opiate (oxycodone) is at prescribed therapeutic levels. The only thing I have used to hopefully, once and for all, and my misery is NovoLog and lots of it. 540 units was administered by me with 6 injections of 90 units each, 3 in each bicep. I wish you just let me remain in a coma and , but knowing you are bound to do your best, I have told you what you are dealing with. My (we are still legally ) is my legally bound next of kin. It is only she who may give consent to pull life support if I am successful and independent, with massive neuro damage due to this hopefully successful suicide. Thank you for reading. P.S. on my phone and messages under my name, there is a tiny note for family as well. Thank you. It wasn't happening fast enough, so I injected 90 more into left arm for total of 450 unites injected. Patient confirms this verbally and states that he did not use anything else and intent to harm himself. He states that he was at his baseline level of chronic pain today with no new concerns or complaints otherwise. He is currently asymptomatic. Related Data Home Medications ?Medication ?Instructions ?Recorded ?Confirmed levetiracetam 750 mg tablet 1,500 mg PO BID Seizures 08/15/22 08/23/24 lorazepam 1 mg tablet 1 mg PO TID Seizures 08/15/22 08/23/24 losartan 50 mg tablet 50 mg PO DAILY Hypertension 08/15/22 08/23/24 pregabalin 150 mg capsule 150 mg PO TID Nerve Pain 08/15/22 08/23/24 rosuvastatin 10 mg tablet 10 mg PO DAILY Cholesterol 08/15/22 08/23/24 topiramate 25 mg tablet 25 mg PO HS Headache prevention 08/15/22 08/23/24 insulin glargine 100 unit/mL 90 unit SQ BID 04/14/23 08/23/24 subcutaneous solution (Lantus U-100 Insulin) clopidogrel 75 mg tablet (Plavix) 75 mg PO DAILY 05/06/23 08/23/24 fenofibrate nanocrystallized 48 mg 48 mg PO HS 05/06/23 08/23/24 tablet folic acid 400 mcg tablet 400 mg PO DAILY 05/06/23 08/23/24 insulin aspart U-100 100 unit/mL 1 sliding scale dose SQ 05/06/23 08/23/24 subcutaneous solution (Novolog USEASDIRECTD U-100 Insulin aspart) insulin syringe-needle U-100 1 mL #10 ea 05/06/23 08/23/24 31 gauge x 5/16 (BD Insulin Syringe Ultra-Fine) pantoprazole 20 mg tablet,delayed 20 mg PO DAILY PRN Heartburn 05/06/23 08/23/24 release (Protonix) potassium chloride 10 mEq 10 meq PO DAILY 05/06/23 08/23/24 capsule,extended release trazodone 50 mg tablet 50 mg PO HS 05/06/23 08/23/24 baclofen 10 mg tablet 10 mg PO Q6HP PRN muscle spasms 06/17/23 08/23/24 promethazine 25 mg tablet 25 mg PO Q6H PRN Nausea 01/12/24 08/23/24 calcitriol 0.25 mcg capsule 0.25 mcg PO MOWEFR 03/24/24 08/23/24 empagliflozin 25 mg tablet 25 mg PO DAILY 03/24/24 08/23/24 (Jardiance) blood-glucose sensor (FreeStyle #1 ea 07/26/24 08/23/24 Eugenie 3 Sensor device) flash glucose scanning reader #1 ea 07/26/24 08/23/24 (FreeStyle Uegenie 2 Charmco) metoprolol succinate 100 mg 100 mg PO DAILY 08/02/24 08/23/24 tablet,extended release 24 hr oxycodone 10 mg tablet 10 mg PO Q4HP Moderate Pain (Scale 08/23/24 08/23/24 Score 7/10) Previous Rx's ?Medication ?Instructions ?Recorded blood pressure monitor (Blood #1 ea 08/10/24 Pressure Kit) isosorbide mononitrate 60 mg 60 mg PO DAILY #90 tabs 08/23/24 tablet,extended release 24 hr ranolazine 500 mg tablet,extended 500 mg PO BID #180 tabs 08/23/24 release,12 hr Allergies Allergy/AdvReac Type Severity Reaction Status Date / Time aspirin Allergy Severe Anaphylaxis Verified 08/23/24 11:00 ibuprofen (From Motrin) Allergy Severe Anaphylaxis Verified 08/23/24 11:00 naproxen (From Aleve) Allergy Severe Anaphylaxis Verified 08/23/24 11:00 NSAIDS (Non-Steroidal Allergy Severe Anaphylaxis Verified 08/23/24 11:00 Anti-Inflamma bee venom protein (honey bee) Allergy Anaphylaxis Verified 08/23/24 11:00 metoclopramide (From Reglan) AdvReac Intermediate Agitated Verified 08/23/24 11:00 midazolam (From Versed) AdvReac Verified 08/23/24 11:00 PFSH <Karissa Ayala DO - Last Filed: 09/08/24 23:23> [facility] Disclaimer: The information contained in this section may have been updated after the patient was seen, as this information can be updated by other users. Medical History Depression Anxiety SOB (shortness of breath) Chest pain Abnormal findings on diagnostic imaging of heart and coronary circulation Abnormal nuclear cardiac imaging test History of tonsillitis Diabetes CVA (cerebral vascular accident) Skin induration Deviated septum Right maxillary sinus opacification Headache Chronic sinusitis Right sided facial pain Pain due to onychomycosis of toenail Neuropathy involving both lower extremities Bilateral foot pain Nail fungus Surgical History History of back surgery History of colon resection History of appendectomy History of laparotomy Family History Other Family history of diabetes mellitus Social History Smoking Status: Current every day smoker alcohol intake: never substance use type: denies use current occupational status: retired Travel in the last 8 weeks?: None caffeine: No Have you lived/traveled outside [place] in past 30 days?: No Contact w/someone who lives/traveled outside US past 30 days?: No Exposure to someone with infectious disease in past 14 days?: No Do you have a fever (greater than 100.4 F or 38 C)?: No Have you tested positive for COVID-19?: No Exposed to someone with COVID-19 in past 14 days?: No Do you have a sore throat?: No Do you have a cough?: No Do you have any weakness?: No Do you have any diarrhea?: No Are you experiencing any unusual bleeding?: No Do you have any muscle aches/pain?: No Do you have any abdominal pain?: No Are you experiencing loss of taste or smell?: No Other Medical History Have you received the Flu Vaccine for this season: No Have you received the Pneumonia Vaccine: No <Karissa Ayala DO - Last Filed: 09/08/24 23:23> ROS Obtained: Yes All systems reviewed & no additional complaints except as documented Physical Exam <Karissa Ayala DO - Last Filed: 09/08/24 23:23> General General appearance: alert and in no apparent distress Head Head exam: atraumatic and normocephalic Eye Eye exam: Present normal appearance, PERRL and EOMI ENT ENT exam: Present normal exam, normal oropharynx, mucous membranes moist and normal external ear exam Neck Neck exam: Present normal inspection, full ROM and trachea midline; Absent tenderness Chest Chest inspection: Present normal inspection and symmetric chest wall rise; Absent tenderness Respiratory Respiratory exam: Present normal lung sounds bilaterally; Absent respiratory distress, wheezes, stridor or accessory muscle use Cardiovascular Cardiovascular exam: Present regular rate and normal rhythm Abdominal Exam Abdominal exam: Present soft; Absent distention, tenderness or guarding Extremities Exam Extremities exam: Present normal inspection, full ROM and normal capillary refill; Absent tenderness or edema Back Exam Back exam: Present normal inspection and full ROM; Absent tenderness Neurological Exam Neurological exam: Present alert, oriented X3, CN II-XII intact and normal gait; Absent motor sensory deficit Psychiatric Psychiatric exam: Present flat affect and suicidal ideation Skin Skin exam: Present warm and dry Medical Decision Making <Karissa Ayala DO - Last Filed: 09/08/24 23:23> Medical Records Medical records reviewed: Yes I reviewed the patient's medical records. Screening: Per USPSTF and CDC recommendations, given the prevalence of disease in our region, it is our hospital?s policy to screen for HIV and viral Hepatitis for all patients aged 18 and over and those with ongoing risk factors. Len Inquiry Pt receiving controlled substance: No Vital Signs: 09/08/24 21:26 09/08/24 22:00 09/08/24 22:31 Temperature 99.2 F Temperature Source Oral Pulse Rate 73 75 Pulse Rate [Left] 81 Respiratory Rate 11 L Blood Pressure 110/61 88/58 L Blood Pressure [Right Arm] 113/66 Blood Pressure Mean Blood Pressure Mean [Right Arm] 81 Blood Pressure Source [Right Arm] Automatic Cuff Blood Pressure Position [Right Arm] Sitting 02 Sat by Pulse Oximetry 99 96 98 Oxygen Delivery Method Room Air 09/08/24 22:36 09/08/24 23:01 09/08/24 23:30 Temperature Temperature Source Pulse Rate 74 73 73 Pulse Rate [Left] Respiratory Rate Blood Pressure 104/59 L 132/55 L 108/56 L Blood Pressure [Right Arm] Blood Pressure Mean Blood Pressure Mean [Right Arm] Blood Pressure Source [Right Arm] Blood Pressure Position [Right Arm] 02 Sat by Pulse Oximetry 96 97 97 Oxygen Delivery Method 09/09/24 00:00 09/09/24 00:30 09/09/24 00:31 Temperature Temperature Source Pulse Rate 72 73 73 Pulse Rate [Left] Respiratory Rate Blood Pressure 87/46 L 106/45 L 106/59 L Blood Pressure [Right Arm] Blood Pressure Mean Blood Pressure Mean [Right Arm] Blood Pressure Source [Right Arm] Blood Pressure Position [Right Arm] 02 Sat by Pulse Oximetry 96 96 96 Oxygen Delivery Method 09/09/24 01:01 09/09/24 01:30 09/09/24 02:00 Temperature Temperature Source Pulse Rate 73 Pulse Rate [Left] Respiratory Rate Blood Pressure 106/59 L 99/56 L 119/49 L Blood Pressure [Right Arm] Blood Pressure Mean 63 65 Blood Pressure Mean [Right Arm] Blood Pressure Source [Right Arm] Blood Pressure Position [Right Arm] 02 Sat by Pulse Oximetry 97 98 96 Oxygen Delivery Method 09/09/24 02:32 09/09/24 03:00 09/09/24 03:31 Temperature Temperature Source Pulse Rate 75 73 72 Pulse Rate [Left] Respiratory Rate Blood Pressure 101/55 L 99/57 L 107/68 L Blood Pressure [Right Arm] Blood Pressure Mean Blood Pressure Mean [Right Arm] Blood Pressure Source [Right Arm] Blood Pressure Position [Right Arm] 02 Sat by Pulse Oximetry 96 99 97 Oxygen Delivery Method 09/09/24 04:02 09/09/24 04:31 Temperature Temperature Source Pulse Rate 72 69 Pulse Rate [Left] Respiratory Rate Blood Pressure 113/55 L 103/57 L Blood Pressure [Right Arm] Blood Pressure Mean Blood Pressure Mean [Right Arm] Blood Pressure Source [Right Arm] Blood Pressure Position [Right Arm] 02 Sat by Pulse Oximetry 98 98 Oxygen Delivery Method Lab Data Lab results reviewed: Yes I reviewed the patient's lab results. Lab Results 09/08/24 21:15: WBC 10.3, RBC 5.07, Hgb 15.3, Hct 44.6, MCV 88.0, MCH 30.2, MCHC 34.3, RDW 12.8, Plt Count 179, MPV 10.4, Neut % (Auto) 45.6, Lymph % (Auto) 41.8, [place] % (Auto) 8.8, Eos % (Auto) 3.4, Baso % (Auto) 0.2, Neut # (Auto) 4.7, Lymph # (Auto) 4.3, [place] # (Auto) 0.9, Eos # (Auto) 0.4, Baso # (Auto) 0.0, VBG pH 7.31, VBG pCO2 49.0, VBG pO2 32.8, VBG HCO3 24.2, VBG Total CO2 25.7, VBG O2 Saturation 70.2 H, VBG Base Excess -2.0, VBG Lactic Acid 1.8, Sodium 139, Potassium 3.6, Chloride 104, Carbon Dioxide 28, Anion Gap 10.6, BUN 12, Creatinine 1.10, Estimated GFR 71, Est GFR ( Amer) 86, Glucose 81, Calcium 10.0, Total Bilirubin 0.6, AST 20, ALT 12, Alkaline Phosphatase 46, Total Protein 7.6, Albumin 4.5, Globulin 3.1, Albumin/Globulin Ratio 1.5, Salicylates < 1.0 L, Acetaminophen < 10 L, Plasma/Serum Alcohol < 10 09/08/24 22:06: Urine Color Yellow, Urine Appearance Clear, Urine pH 6.0, Ur Specific [place] 1.015, Urine Protein Trace, Urine Glucose (UA) 3+, Urine Ketones Negative, Urine Blood Negative, Urine Nitrate Negative, Urine Bilirubin Negative, Urine Urobilinogen 0.2, Ur Leukocyte Esterase Negative, Urine RBC Occasional, Urine WBC Occasional, Ur Squamous Epith Cells 3-5, Urine Bacteria Trace, Urine Mucus 1+, Urine Opiates Screen Positive H, Urine Methadone Screen Negative, Ur Barbituates Screen Negative, Ur Phencyclidine Scrn Negative, Ur Amphetamines Screen Negative, U Benzodiazepines Scrn Negative, Urine Cocaine Screen Negative, U Marijuana (THC) Screen Negative 09/09/24 01:04: Sodium 140, Potassium 2.1 L* D, Chloride 114 H, Carbon Dioxide 19 L, Anion Gap 9.1, BUN 9, Creatinine 0.80 D, Estimated Creat Clear 15, Estimated GFR 102, Est GFR ( Amer) 124 D, Glucose 103 H D, Calcium 6.4 L 09/09/24 01:43: Sodium 138, Potassium 3.2 L D, Chloride 102, Carbon Dioxide 26, Anion Gap 13.2, BUN 13 D, Creatinine 1.30 H D, Estimated Creat Clear 9, Estimated GFR 58 L, Est GFR ( Amer) 71 D, Glucose 126 H D, Calcium 9.6, Magnesium 1.8 09/08/24 21:15 09/09/24 01:43 Orders (Tests/Meds): ED MEDICATIONS Discontinued Medications Generic Name Dose Route Start Last Admin Trade Name Beanq PRN Reason Stop Dose Admin Levetiracetam 1,500 mg 09/08/24 21:23 09/08/24 21:54 Levetiracetam 500 Mg Tablet PO 09/08/24 21:24 1,500 mg ONCE ONE Administration Lorazepam 1 mg 09/08/24 22:50 09/08/24 22:53 Lorazepam 1mg Tablet PO 09/08/24 22:51 1 mg ONCE ONE Administration Oxycodone HCl 5 mg 09/08/24 21:24 09/08/24 21:54 Oxycodone 5mg Immediate Release Tablet PO 09/08/24 21:25 5 mg ONCE ONE Administration Oxycodone HCl 10 mg 09/09/24 02:36 09/09/24 02:39 Oxycodone 5mg Immediate Release Tablet PO 09/09/24 02:37 10 mg ONCE ONE Administration Pregabalin 150 mg 09/08/24 22:51 09/08/24 23:02 Pregabalin 50mg Capsule PO 09/08/24 22:52 150 mg ONCE ONE Administration Topiramate 25 mg 09/08/24 21:55 09/08/24 22:29 Topiramate 25mg Tablet PO 09/08/24 21:56 25 mg ONCE ONE Administration ORDERS Category Date Time Status Consult to Behavioral Health [CONS] Stat Cons 09/08/24 21:35 Active Acetaminophen Stat Lab 09/08/24 21:15 Completed BMP [Basic Metabolic Panel] Stat Lab 09/09/24 01:43 Completed BMP [Basic Metabolic Panel] Timed Lab 09/09/24 01:04 Completed C-Peptide Stat Lab 09/08/24 21:15 Received CBC w/Auto Diff [Complete Blood Count Auto Diff] Stat Lab 09/08/24 21:15 Completed CMP [Comprehensive Metabolic Panel] Stat Lab 09/08/24 21:15 Completed Ethanol [Ethyl Alcohol] Stat Lab 09/08/24 21:15 Completed Insulin Level Total Stat Lab 09/08/24 21:15 Received MAG [Magnesium] Stat Lab 09/09/24 01:43 Completed Salicylate Stat Lab 09/08/24 21:15 Completed UA [Urinalysis and Microscopic] Stat Lab 09/08/24 22:06 Completed UDS [Drug Screen,Urine] Stat Lab 09/08/24 22:06 Completed VBG [Venous Blood Gas] Stat RT 09/08/24 21:15 Completed ECG Data Tracing #1: I reviewed this ECG and interpreted as documented below: Normal sinus rhythm with a ventricular of [address] changes concerning for STEMI. Normal intervals ECG initial impression date: 09/08/24 ECG initial impression time: 21:16 Medical Decision Narrative: In summary, this patient is a 48-year-old male presenting to the Emergency Department for evaluation of suicide attempt by insulin overdose. Differential diagnoses considered include but are not limited to suicide attempt, suicidal ideation, insulin overdose, hypoglycemia, hypokalemia, polysubstance ingestion. Ruling out the most morbid conditions drove assessment. It should be noted patient's history includes chronic pain, CAD, CVA, hypertension, hyperlipidemia, depression with prior suicide attempt which may or may not be at goal therapy. This complicates all aspects of care by increasing patient's risk for morbidity. I reviewed patient's past medical records and noted prior evaluations by cardiology for maintenance of health, prior admission for arteritis, prior evaluation in the ED by myself about a month ago for a fall. I also noted prior ED evaluation 04/14/2023 for suicide attempt in a similar manner, at which point glucoses remained stable. Patient was very agitated in the emergency department requiring medications being administered and will subsequently transferred to psychiatric hospital after medical clearance. On exam, the patient has a flat affect but is sitting upright in no acute distress with normal vitals on cardiac telemetry. Fingerstick blood glucose upon arrival is 89. EKG obtained is reassuring. Workup included CBC, CMP, acetaminophen level, salicylate level, ethanol level, urinalysis, urine drug screen, insulin level, C-peptide level. Patient was placed under suicide precautions with one-to-one observation, and we initiated the process of 72-hour hold. Every 15 minute fingerstick blood glucoses were ordered. Patient expresses concern over not receiving his nighttime seizure medications, expressing concern that he may have a seizure. He also notes concern over his nighttime pain medications. I did order 5 mg of oral oxycodone, 25 mg topiramate, 1500 mg of oral Keppra. He is currently drinking soda. He is upset he is not getting his 10mg oxycodone, 1mg lorazepam, 150 mg pregabalin. I advised I do not want to cause any sedation so we can monitor his neuro status closely. We had an interactive discussion with poison control who recommended monitoring potassium as well as every 15 minute fingerstick blood glucoses. They recommended an observation period of at least 8 hours minimum. They advised if he required multiple doses of dextrose, he would require 24-hour observation. They noted that if his glucose drops under 60, we could try administering octreotide. They recommended 50 mcg of subcutaneous octreotide every 8 hours, and 12-hour observation after the last dose if it is not being administered. 2140 glucose - 90 2155 glucose - 91 2210 glucose - 107 2225 glucose - 99 2245 glucose - 82 2315 glucose - 105 (no intervention) Labs obtained are reassuring with reassuring CBC with no significant leukocytosis or anemia, reassuring chemistry with normal kidney function normal electrolytes. Liver enzymes are also within normal limits. Acetaminophen, salicylate, and ethanol levels are negative. Urinalysis/urine drug screen is positive for opiates in the setting of chronic oxycodone use. At 2200 patient was placed in ED observation status pending continued glucose stability for total 8 hours observation is instructed by poison control to determine whether or not the patient would be appropriate for medical clearance for psychiatric evaluation versus require admission for prolonged observation for insulin overdose. The patient was provided serial reevaluations, fingerstick blood glucose monitoring, and cardiac monitoring while awaiting ultimate disposition. Glucoses on my assessments remain stable as above. No intervention required. He is sipping Mountain Dew which is maintaining a stable glucose. He continued to ask me for his home medications, stating that he is becoming more anxious and agitated. I did add his home Ativan and pregabalin. Patient care signed out to the oncoming provider, Dr. Posadas, pending complete 8-hour observation for medical clearance for psych evaluation. <Francis Posadas MD - Last Filed: 09/09/24 05:15> Vital Signs: 09/08/24 21:26 09/08/24 22:00 09/08/24 22:31 Temperature 99.2 F Temperature Source Oral Pulse Rate 73 75 Pulse Rate [Left] 81 Respiratory Rate 11 L Blood Pressure 110/61 88/58 L Blood Pressure [Right Arm] 113/66 Blood Pressure Mean Blood Pressure Mean [Right Arm] 81 Blood Pressure Source [Right Arm] Automatic Cuff Blood Pressure Position [Right Arm] Sitting 02 Sat by Pulse Oximetry 99 96 98 Oxygen Delivery Method Room Air 09/08/24 22:36 09/08/24 23:01 09/08/24 23:30 Temperature Temperature Source Pulse Rate 74 73 73 Pulse Rate [Left] Respiratory Rate Blood Pressure 104/59 L 132/55 L 108/56 L Blood Pressure [Right Arm] Blood Pressure Mean Blood Pressure Mean [Right Arm] Blood Pressure Source [Right Arm] Blood Pressure Position [Right Arm] 02 Sat by Pulse Oximetry 96 97 97 Oxygen Delivery Method 09/09/24 00:00 09/09/24 00:30 09/09/24 00:31 Temperature Temperature Source Pulse Rate 72 73 73 Pulse Rate [Left] Respiratory Rate Blood Pressure 87/46 L 106/45 L 106/59 L Blood Pressure [Right Arm] Blood Pressure Mean Blood Pressure Mean [Right Arm] Blood Pressure Source [Right Arm] Blood Pressure Position [Right Arm] 02 Sat by Pulse Oximetry 96 96 96 Oxygen Delivery Method 09/09/24 01:01 09/09/24 01:30 09/09/24 02:00 Temperature Temperature Source Pulse Rate 73 Pulse Rate [Left] Respiratory Rate Blood Pressure 106/59 L 99/56 L 119/49 L Blood Pressure [Right Arm] Blood Pressure Mean 63 65 Blood Pressure Mean [Right Arm] Blood Pressure Source [Right Arm] Blood Pressure Position [Right Arm] 02 Sat by Pulse Oximetry 97 98 96 Oxygen Delivery Method 09/09/24 02:32 09/09/24 03:00 09/09/24 03:31 Temperature Temperature Source Pulse Rate 75 73 72 Pulse Rate [Left] Respiratory Rate Blood Pressure 101/55 L 99/57 L 107/68 L Blood Pressure [Right Arm] Blood Pressure Mean Blood Pressure Mean [Right Arm] Blood Pressure Source [Right Arm] Blood Pressure Position [Right Arm] 02 Sat by Pulse Oximetry 96 99 97 Oxygen Delivery Method 09/09/24 04:02 09/09/24 04:31 Temperature Temperature Source Pulse Rate 72 69 Pulse Rate [Left] Respiratory Rate Blood Pressure 113/55 L 103/57 L Blood Pressure [Right Arm] Blood Pressure Mean Blood Pressure Mean [Right Arm] Blood Pressure Source [Right Arm] Blood Pressure Position [Right Arm] 02 Sat by Pulse Oximetry 98 98 Oxygen Delivery Method Lab Data Lab Results 09/08/24 21:15: WBC 10.3, RBC 5.07, Hgb 15.3, Hct 44.6, MCV 88.0, MCH 30.2, MCHC 34.3, RDW 12.8, Plt Count 179, MPV 10.4, Neut % (Auto) 45.6, Lymph % (Auto) 41.8, [place] % (Auto) 8.8, Eos % (Auto) 3.4, Baso % (Auto) 0.2, Neut # (Auto) 4.7, Lymph # (Auto) 4.3, [place] # (Auto) 0.9, Eos # (Auto) 0.4, Baso # (Auto) 0.0, VBG pH 7.31, VBG pCO2 49.0, VBG pO2 32.8, VBG HCO3 24.2, VBG Total CO2 25.7, VBG O2 Saturation 70.2 H, VBG Base Excess -2.0, VBG Lactic Acid 1.8, Sodium 139, Potassium 3.6, Chloride 104, Carbon Dioxide 28, Anion Gap 10.6, BUN 12, Creatinine 1.10, Estimated GFR 71, Est GFR ( Amer) 86, Glucose 81, Calcium 10.0, Total Bilirubin 0.6, AST 20, ALT 12, Alkaline Phosphatase 46, Total Protein 7.6, Albumin 4.5, Globulin 3.1, Albumin/Globulin Ratio 1.5, Salicylates < 1.0 L, Acetaminophen < 10 L, Plasma/Serum Alcohol < 10 09/08/24 22:06: Urine Color Yellow, Urine Appearance Clear, Urine pH 6.0, Ur Specific [place] 1.015, Urine Protein Trace, Urine Glucose (UA) 3+, Urine Ketones Negative, Urine Blood Negative, Urine Nitrate Negative, Urine Bilirubin Negative, Urine Urobilinogen 0.2, Ur Leukocyte Esterase Negative, Urine RBC Occasional, Urine WBC Occasional, Ur Squamous Epith Cells 3-5, Urine Bacteria Trace, Urine Mucus 1+, Urine Opiates Screen Positive H, Urine Methadone Screen Negative, Ur Barbituates Screen Negative, Ur Phencyclidine Scrn Negative, Ur Amphetamines Screen Negative, U Benzodiazepines Scrn Negative, Urine Cocaine Screen Negative, U Marijuana (THC) Screen Negative 09/09/24 01:04: Sodium 140, Potassium 2.1 L* D, Chloride 114 H, Carbon Dioxide 19 L, Anion Gap 9.1, BUN 9, Creatinine 0.80 D, Estimated Creat Clear 15, Estimated GFR 102, Est GFR ( Amer) 124 D, Glucose 103 H D, Calcium 6.4 L 09/09/24 01:43: Sodium 138, Potassium 3.2 L D, Chloride 102, Carbon Dioxide 26, Anion Gap 13.2, BUN 13 D, Creatinine 1.30 H D, Estimated Creat Clear 9, Estimated GFR 58 L, Est GFR ( Amer) 71 D, Glucose 126 H D, Calcium 9.6, Magnesium 1.8 Orders (Tests/Meds): ED MEDICATIONS Discontinued Medications Generic Name Dose Route Start Last Admin Trade Name Freq PRN Reason Stop Dose Admin Levetiracetam 1,500 mg 09/08/24 21:23 09/08/24 21:54 Levetiracetam 500 Mg Tablet PO 09/08/24 21:24 1,500 mg ONCE ONE Administration Lorazepam 1 mg 09/08/24 22:50 09/08/24 22:53 Lorazepam 1mg Tablet PO 09/08/24 22:51 1 mg ONCE ONE Administration Oxycodone HCl 5 mg 09/08/24 21:24 09/08/24 21:54 Oxycodone 5mg Immediate Release Tablet PO 09/08/24 21:25 5 mg ONCE ONE Administration Oxycodone HCl 10 mg 09/09/24 02:36 09/09/24 02:39 Oxycodone 5mg Immediate Release Tablet PO 09/09/24 02:37 10 mg ONCE ONE Administration Pregabalin 150 mg 09/08/24 22:51 09/08/24 23:02 Pregabalin 50mg Capsule PO 09/08/24 22:52 150 mg ONCE ONE Administration Topiramate 25 mg 09/08/24 21:55 09/08/24 22:29 Topiramate 25mg Tablet PO 09/08/24 21:56 25 mg ONCE ONE Administration ORDERS Category Date Time Status Consult to Behavioral Health [CONS] Stat Cons 09/08/24 21:35 Active Acetaminophen Stat Lab 09/08/24 21:15 Completed BMP [Basic Metabolic Panel] Stat Lab 09/09/24 01:43 Completed BMP [Basic Metabolic Panel] Timed Lab 09/09/24 01:04 Completed C-Peptide Stat Lab 09/08/24 21:15 Received CBC w/Auto Diff [Complete Blood Count Auto Diff] Stat Lab 09/08/24 21:15 Completed CMP [Comprehensive Metabolic Panel] Stat Lab 09/08/24 21:15 Completed Ethanol [Ethyl Alcohol] Stat Lab 09/08/24 21:15 Completed Insulin Level Total Stat Lab 09/08/24 21:15 Received MAG [Magnesium] Stat Lab 09/09/24 01:43 Completed Salicylate Stat Lab 09/08/24 21:15 Completed UA [Urinalysis and Microscopic] Stat Lab 09/08/24 22:06 Completed UDS [Drug Screen,Urine] Stat Lab 09/08/24 22:06 Completed VBG [Venous Blood Gas] Stat RT 09/08/24 21:15 Completed Medical Decision Narrative: In summary, this patient is a 48-year-old male presenting to the Emergency Department for evaluation of suicide attempt by insulin overdose. Differential diagnoses considered include but are not limited to suicide attempt, suicidal ideation, insulin overdose, hypoglycemia, hypokalemia, polysubstance ingestion. Ruling out the most morbid conditions drove assessment. It should be noted patient's history includes chronic pain, CAD, CVA, hypertension, hyperlipidemia, depression with prior suicide attempt which may or may not be at goal therapy. This complicates all aspects of care by increasing patient's risk for morbidity. I reviewed patient's past medical records and noted prior evaluations by cardiology for maintenance of health, prior admission for arteritis, prior evaluation in the ED by myself about a month ago for a fall. I also noted prior ED evaluation 04/14/2023 for suicide attempt in a similar manner, at which point glucoses remained stable. Patient was very agitated in the emergency department requiring medications being administered and will subsequently transferred to psychiatric hospital after medical clearance. On exam, the patient has a flat affect but is sitting upright in no acute distress with normal vitals on cardiac telemetry. Fingerstick blood glucose upon arrival is 89. EKG obtained is reassuring. Workup included CBC, CMP, acetaminophen level, salicylate level, ethanol level, urinalysis, urine drug screen, insulin level, C-peptide level. Patient was placed under suicide precautions with one-to-one observation, and we initiated the process of 72-hour hold. Every 15 minute fingerstick blood glucoses were ordered. Patient expresses concern over not receiving his nighttime seizure medications, expressing concern that he may have a seizure. He also notes concern over his nighttime pain medications. I did order 5 mg of oral oxycodone, 25 mg topiramate, 1500 mg of oral Keppra. He is currently drinking soda. He is upset he is not getting his 10mg oxycodone, 1mg lorazepam, 150 mg pregabalin. I advised I do not want to cause any sedation so we can monitor his neuro status closely. We had an interactive discussion with poison control who recommended monitoring potassium as well as every 15 minute fingerstick blood glucoses. They recommended an observation period of at least 8 hours minimum. They advised if he required multiple doses of dextrose, he would require 24-hour observation. They noted that if his glucose drops under 60, we could try administering octreotide. They recommended 50 mcg of subcutaneous octreotide every 8 hours, and 12-hour observation after the last dose if it is not being administered. 2140 glucose - 90 2155 glucose - 91 2210 glucose - 107 2225 glucose - 99 2245 glucose - 82 2315 glucose - 105 (no intervention) Labs obtained are reassuring with reassuring CBC with no significant leukocytosis or anemia, reassuring chemistry with normal kidney function normal electrolytes. Liver enzymes are also within normal limits. Acetaminophen, salicylate, and ethanol levels are negative. Urinalysis/urine drug screen is positive for opiates in the setting of chronic oxycodone use. At 2200 patient was placed in ED observation status pending continued glucose stability for total 8 hours observation is instructed by poison control to determine whether or not the patient would be appropriate for medical clearance for psychiatric evaluation versus require admission for prolonged observation for insulin overdose. The patient was provided serial reevaluations, fingerstick blood glucose monitoring, and cardiac monitoring while awaiting ultimate disposition. Glucoses on my assessments remain stable as above. No intervention required. He is sipping Mountain Dew which is maintaining a stable glucose. He continued to ask me for his home medications, stating that he is becoming more anxious and agitated. I did add his home Ativan and pregabalin. Patient care signed out to the oncoming provider, Dr. Posadas, pending complete 8-hour observation for medical clearance for psych evaluation. Katharina CONTRERAS: I assumed care of the patient at the time of handoff from the prior provider. On reassessment patient continuously asks for his home opiate medications. His blood sugars have remained stable. A repeat BMP was ordered which had several abnormalities that did not seem consistent and was felt to be possibly a lab error. A redraw was performed which showed no significant change from his original BMP. We spoke with poison control again. They report that since he has had completely stable glucose and labs, they have adjusted their observation time recommendations to 5 hours. We spoke again with poison control at that time and they report that he is medically cleared. We called and spoke with the [facility]path unit at and patient was accepted on behalf of Dr. Quiroga and transferred in stable condition for suicide attempt. Critical Care <Karissa Ayala, DO - Last Filed: 09/08/24 23:23> Critical Care Time Critical Care Time: Yes Attestation: On 09/08/24, the high probability of a clinically significant, sudden or life threatening deterioration of the following system(s) required my full and direct attention, intervention and personal management. The time I documented below is in addition to time spent performing reported procedures but includes the following listed in this critical care notation. Total Time Total Critical Care Time: 60
[2024-09-08 21:23] LABS: Basophils % 0.2 % (0.1-2.0); Eosinophils # 0.4 Kmm3 (0.0-0.4); Eosinophils % 3.4 % (0.1-12.0); Hematocrit 44.6 % (42.0-52.0); Hemoglobin 15.3 g/dL (14.1-18.0); Immature Granulocytes # 0.02 10^3uL; Immature Granulocytes % 0.2 %; Lymphocytes # 4.3 K/mm3 (0.7-4.5); Lymphocytes % 41.8 % (10-50); Mean Corpuscular HGB Conc 34.3 g/dL (31.8-35.4); Mean Corpuscular Hemoglobin 30.2 pg (27.0-31.2); Mean Platelet Volume 10.4 fl (7.4-10.4); Monocytes # 0.9 K/mm3 (0.1-1.0); Monocytes % 8.8 % (1.7-9.3); Neutrophils # 4.7 K/mm3 (1.8-7.8); Neutrophils % 45.6 % (37.0-80.0); Nucleated Red Blood Cells # 0 10^3/uL; Nucleated Red Blood Cells % 0 %; Platelet Count 179 K/mm3 (142-424); Red Blood Count 5.07 M/mm3 (4.60-6.20); Red Cell Distribution Width 12.8 % (11.5-17.5); White Blood Count 10.3 K/mm3 (4.8-10.8)
--- OUTSIDE RECORDS SUMMARY | 2024-09-08 21:25 | XMS_ITS | Clinical Summary ---
Author Organization [facility] Address [address] [place] [id number] Care Team Providers Care Snuff Grinder And Screener Name Role Phone Karissa Henry JAY Primary Care Provider [phone] Source Comments This information has been disclosed to you from confidential records protectedfrom disclosure by state law. You shall make no further disclosure of thisinformation without the specific, written, and informed release of theindividual to whom it pertains, or as otherwise permitted by law. A generalauthorization for the release of medical or other information is not sufficientfor the purposes of therelease of HIV test results or diagnoses. [id number] Allergies Active Allergy Reactions Criticality Noted Date Comments Asa-Calcium Fblo-Nfy-Zlefbcxa Anaphylaxis High 12/19/2010 Aspirin Anaphylaxis High 08/14/2010 Atorvastatin Other (See Comments) 02/21/2019 Myopathy Other reaction(s): Other (See Comments) Myopathy Bee Venom Protein (Honey Bee) High 04/07/2019 Other reaction(s): Anaphylaxis Bupropion 04/29/2020 Bupropion Hcl 04/07/2019 Empagliflozin High 01/05/2019 Other reaction(s): Other (See Comments) DKA Other reaction(s): Other (See Comments) DKA Other reaction(s): Other (See Comments) DKA Hymenoptera Allergenic Extract 10/27/2014 Other reaction(s): Other (See Comments), Unknown Ibuprofen Anaphylaxis High 08/15/2010 Linagliptin Other (See Comments) Low 04/24/2011 Cold clammy Cold clammy Cold clammy Cold clammy Metformin Diarrhea Low 01/01/2011 Also with XR metformin Also with XR metformin Also with XR metformin Also with XR metformin Also with XR metformin Also with XR metformin Other reaction(s): Diarrhea Also with XR metformin Also with XR metformin Also with XR metformin Also with XR metformin Also with XR metformin Also with XR metformin Also with XR metformin Also with XR metformin Also with XR metformin Also with XR metformin Metoclopramide Other (See Comments) Medium 07/07/2018 Paradoxical response Paradoxical agitation/dystonia. Tolerates phenergan. Other reaction(s): Other: See Comments Paradoxical agitation/dystonia. Tolerates phenergan. Paradoxical agitation/dystonia. Tolerates phenergan. Paradoxical response Paradoxical agitation/dystonia. Tolerates phenergan. Other reaction(s): Other (See Comments) Paradoxical agitation/dystonia. Tolerates phenergan. Other reaction(s): Other (See Comments), Other: See Comments Paradoxical agitation/dystonia. Tolerates phenergan. Paradoxical response Paradoxical agitation/dystonia. Tolerates phenergan. Other reaction(s): Other: See Comments Paradoxical agitation/dystonia. Tolerates phenergan. Paradoxical agitation/dystonia. Tolerates phenergan. Paradoxical response Paradoxical agitation/dystonia. Tolerates phenergan. Other reaction(s): Other: See Comments Paradoxical agitation/dystonia. Tolerates phenergan. Paradoxical agitation/dystonia. Tolerates phenergan. Paradoxical response Metoclopramide Hcl 04/07/2019 Midazolam Other (See Comments) 08/31/2014 Question of paradoxical response Other reaction(s): Other (See Comments) Question of paradoxical response Paradoxical effect per patient Paradoxical effect per patient Question of paradoxical response Paradoxical effect per patient Paradoxical effect per patient Other reaction(s): Other (See Comments) Paradoxical effect per patient Other reaction(s): Other (See Comments), Other: See Comments, Unknown Question of paradoxical response Other reaction(s): Other (See Comments) Question of paradoxical response Paradoxical effect per patient Paradoxical effect per patient Question of paradoxical response Paradoxical effect per patient Paradoxical effect per patient Question of paradoxical response Question of paradoxical response Paradoxical effect per patient Paradoxical effect per patient Question of paradoxical response Paradoxical effect per patient Nsaids (Non-Steroidal Anti-Inflammatory Drug) Anaphylaxis High 08/14/2010 Other reaction(s): Anaphylaxis Sitagliptin Diarrhea Low 01/01/2011 Sitagliptin Phosphate 04/07/2019 Venom-Honey Bee Anaphylaxis High 02/10/2016 Venom-Wasp 10/11/2012 Other reaction(s): Other (See Comments), Unknown Other reaction(s): Other (See Comments), Unknown Medications * This document contains information received from the source organization and may not represent a complete record from that organization. EPINEPHrine 0.15 mg/0.15 mL AtIn Inject 0.15 mg as directed as needed. 1 Device 2 11/14/19 16 Active Additional Information Patient taking differently: 0.3 mgInjection As needed, Reported on 01/26/2019 pregabalin (LYRICA) 150 MG capsule Take 1 capsule (150 mg total) by mouth 3 times a day. 90 capsule 5 11/14/19 16 Active pen needle, diabetic 32 gauge x Ndle Use as directed. Used to inject insulin 4 times daily as directed 12/05/19 17 Active glucagon, human recombinant, (GLUCAGON) 1 mg KitIndications:Unco ntrolled type 2 diabetes mellitus with other specified complication, with long-term current use of insulin Use as directed for hypoglycemia 1 kit 1 10/21/19 18 Active lancets MiscIndications:Unc ontrolled type 2 diabetes mellitus with other specified complication, with long-term current use of insulin For glucose checks 4x/day 150 each 11 10/21/19 18 Active TRUE METRIX GLUCOSE TEST STRIP StrpIndications:Typ e 2 diabetes mellitus with complication, unspecified care home [place] Check blood glucose 4 times Daily 150 strip 11 10/23/19 18 Active levETIRAcetam (KEPPRA) 750 MG tabletIndications:T onic-Clonic Epilepsy Treatment Adjunct,Take 2 pills BID Take 2 tablets (1,500 mg total) by mouth 2 times a day. Indications: Tonic-Clonic Epilepsy Treatment Adjunct, Take 2 pills BID Active multivitamin with folic acid 400 mcg Tab Take 1 tablet by mouth daily. 30 tablet 1 10/09/19 19 Active proMETHazine (PHENERGAN) 25 MG tablet Take 1 tablet (25 mg total) by mouth every 6 hours as needed for Nausea. Active pantoprazole (PROTONIX) 40 MG tablet Take 1 tablet (40 mg total) by mouth every morning before breakfast. Active traZODone (DESYREL) 50 MG tablet Take 1 tablet (50 mg total) by mouth at bedtime as needed for Sleep. Active DULoxetine (CYMBALTA) 60 MG capsule Take 30 mg by mouth daily. Active folic acid (FOLVITE) 400 MCG tablet Take 1 tablet (400 mcg total) by mouth daily. Active loperamide (IMODIUM) 2 mg capsule Take 1 capsule (2 mg total) by mouth 4 times a day as needed for Diarrhea. Active insulin aspart protamine-insulin aspart (NOVOLOG 70/30) 100 unit/mL (70-30) flexpen Inject 15 Units subcutaneously 3 times a day before meals. Plus sliding scale Active topiramate (TOPAMAX) 25 MG sprinkle capsule Take 1 capsule (25 mg total) by mouth at bedtime. Active insulin glargine (LANTUS SOLOSTAR) 100 unit/mL (3 mL) InPn Inject 40 Units subcutaneously 2 times a day. 1 pen 04/20/19 21 Active fenofibrate nanocrystallized (TRICOR) 48 MG tablet Take 1 tablet (48 mg total) by mouth daily. Active hydrOXYzine HCL (ATARAX) 25 MG tablet Take 1 tablet (25 mg total) by mouth every 3 hours as needed for Itching. Active LORazepam (ATIVAN) 1 MG tablet Take 1 tablet (1 mg total) by mouth 3 times a day as needed for Anxiety. Active meclizine (ANTIVERT) 12.5 mg tablet Take 1 tablet (12.5 mg total) by mouth 3 times a day as needed. Active oxyCODONE (ROXICODONE) 10 mg Tab Take 1 tablet (10 mg total) by mouth. Active zinc gluconate 50 mg tablet Take 1 tablet (50 mg total) by mouth daily. Active baclofen (LIORESAL) 10 MG tablet Take 1 tablet (10 mg total) by mouth 3 times a day. Active naloxone (NARCAN) 4 mg/actuation Eschbach Apply 1 spray in one nostril if needed. Call 911. May repeat dose in other nostril if no response in 3 minutes. 2 each 02/20/20 21 Active metoprolol succinate (TOPROL-XL) 50 MG 24 hr tablet TAKE ONE TABLET BY MOUTH EVERY DAY 30 tablet 11 02/14/20 22 Active diphenhydrAMINE (BENADRYL) 25 mg tablet Take 1 tablet (25 mg total) by mouth every 6 hours as needed for Itching. Active losartan (COZAAR) 50 MG tablet Take 1 tablet (50 mg total) by mouth daily. 30 tablet 03/25/19 Active clopidogreL (PLAVIX) 75 mg tablet Take 1 tablet (75 mg total) by mouth daily. 30 tablet 03/25/19 Active potassium chloride (MICRO-K) 10 MEQ CR capsule Take 1 capsule (10 mEq total) by mouth daily. 30 capsule 03/25/19 Active rosuvastatin (CRESTOR) 10 MG tablet Take 1 tablet (10 mg total) by mouth daily. 30 tablet 03/25/19 Active Active Problems Problem Noted Date Diagnosed Date Tachycardia 03/25/2022 Neurological deficit, transient 04/18/2020 Fall 04/17/2020 Anxiety 09/29/2018 Delirium tremens 09/28/2018 Essential hypertension 09/28/2018 Alcohol withdrawal syndrome with complication Arterial ischemic stroke 08/27/2018 Cerebrovascular small vessel disease 08/27/2018 Chronic narcotic dependence 08/11/2018 Other seizures 07/10/2018 History of TIA and stroke 12/18/2016 Lumbar disc disease with radiculopathy 6 Low testosterone 11/14/2015 ADD (attention deficit disorder) 08/21/2015 Type 2 diabetes mellitus wit h circulatory disorder, with long-term current use of insulin 10/27/2014 Neuropathy 10/27/2014 Tobacco dependence 09/08/2014 Lumbar disc disease 07/19/2014 Overview (07/19/2014): H/O fusion S/P colon resection 07/19/2014 MDD (major depressive disorder) 01/20/2013 DM (diabetes mellitus) 01/06/2013 Chronic back pain IBS (irritable bowel syndrome) Resolved Problems Problem Noted Date Diagnosed Date Resolved Date Slurred speech 04/18/2020 04/20/2020 Gait disturbance 04/17/2020 04/20/2020 High anion gap metabolic acidosis 09/28/2018 09/28/2018 Diabetic ketoacidosis associ ated with type 2 diabetes mellitus 09/28/2018 09/28/2018 Overview (09/28/2018): Admitted 09/2018 with ETOH withdrawal. Found to have BG 150, AGMA 19, elevated BHB. He was on an SGLT-2 inhibitor. Suspect euglycemic DKA +/- alcoholic ketoacidosis. Discontinued the SGLT-2 Nausea and vomiting 03/16/2018 09/29/19 Overview (03/16/2018): Added automatically from request for surgery [id number] Diarrhea 03/16/2018 09/28/2018 Overview (03/16/2018): Added automatically from request for surgery [id number] Transsexualism 07/19/2014 Immunizations Immunization Administration Dates Next Due Influenza, trivalent, with preservative 01/13/20 14,12/22/2012 Family History Medical History Relation Comments Diabetes Father Heart disease Father Parkinsonism Father Asthma Maternal Grandmother Diabetes Maternal Grandmother Heart disease Maternal Grandmother Hypertension Mother Heart disease Paternal Grandfather Heart disease Paternal Grandmother Relation Status Comments Father Maternal Grandmother (Age 47) Mother Alive Paternal Grandfather Paternal Grandmother Social History Tobacco Use Types Packs/Day Years Used Date Smoking Tobacco: Every Day Cigarettes 0.5 26 Smokeless Tobacco: Never Tobacco Cessation:Ready to Q uit: Not Asked; Counseling Given: Not Answered Comments:Cigarettes,Chew 1.5 ppd X 21 yrs; Alcohol Use Standard Drinks/Week Comments Not Currently 0 (1 standard drink = 0.6 oz pure alcohol) prior 1.5 pints of vodka per day. last drink 09/25/18 Sex and Gender Information Value Date Recorded Sex Assigned at Not on file Legal Sex Male 4:39 PM EST Gender Identity Not on file Sexual Orientation Not on file Last Filed Vital Signs Vital Sign Reading Time Taken Comments Blood Pressure 124/84 03/25/2022 2:01 PM EST Pulse 85 03/25/2022 2:01 PM EST Temperature 36.6 C (97.8 F) 04/20/2020 8:49 AM EST Respiratory Rate 16 04/20/2020 8:49 AM EST Oxygen Saturation 96% 03/25/2022 2:01 PM EST Inhaled Oxygen Concentration 96% 03/25/2022 2 :01 PM EST Weight 113.5 kg (250 lb 3.2 oz) 03/25/2022 2:01 PM EST Height 185.4 cm (6' 1 ) 03/25/2022 2:01 PM EST Body Mass Index 33.01 03/25/2022 2:01 PM EST Plan of Treatment Health Maintenance Due Date Last Done Comments Depression Monitoring (PHQ-9) 1973 Alcohol Misuse Screening 09/19/1991 Immunization: Hepatitis A (1 of 2 - Risk 2-dose series) 1992 Immunization: Hepatitis B (1 of 3 - 19+ 3-dose series) 1992 Urine Albumin/Creatinine Ratio 12/24/2012 Abnormal Colonoscopy Follow Up 09/15/2015 09/14/2014 , 07/20/2003 Diabetic Eye Exam (MyChart) 10/28/2015 10/27/2014 Cologuard (FIT-DNA) 2018 Stool Testing (gFOBT) 2018 Immunization: Pneumococcal ( 2 of 2 - PCV) 01/04/2019 01/04/2018, 12/19/2009 Hemoglobin A1C Monitoring (MyChart) 07/15/2020 04/17/2020, 02/21/2019, 09/26/2018, Additional history exists Renal Function/GFR 04/17/2021 04/17/2020, 1 04/24/2018, 01/15/2019, Additional history exists Immunization: Zoster (1 of 2) 09/19/2023 Osteoporosis Screening (DXA Scan) 09/19/2023 015 Immunization: COVID-19 ( season) 2023 02/27/2022, 02/22/2021, 05/29/2020, Additional history exists Colonoscopy 09/14/2024 09/14/2014, 07/20/2003 Colorectal Cancer Screening (MyChart) 09/14/2024 Immunization: Influenza (MyC storey) (Season Ended) 2024 11/28/2021, 02/22/2021, 01/12/2014, Additional history exists Lipid Panel 04/17/2025 04/17/2020, 06/2016, 07/19/2014 Immunization: DTaP/Tdap/Td ( 2 - Td or Tdap) 11/29/2031 11/28/2021 HIV Screening Completed 09/25/2018, 10/15 (Declined) Hepatitis C Screening (MyChart) Completed 9 Procedures Procedure Name Priority Date/Time Associated Diagnosis Comments LIPID PANEL Routine 04/17/2020 1:53 AM EST COMPREHENSIVE METABOLIC PANEL Routine 04/17/2020 1:53 AM EST HEMOGLOBIN A1C Routine 04/17/2020 1:53 AM EST ED HIV 1+2 ANTIBODY/ANTIGEN WITH REFLEX STAT 09/25/2018 9:34 PM EDT ED HCV AB REFLEX TO HCV QUANT STAT 09/25/2018 4:39 PM EDT HM COLONOSCOPY Routine 09/14/2014 HM DEXA SCAN Routine 07/19/2014 from Last 3 Months or Most Recently Relevant to Health Maintenance Results * (ABNORMAL) Hemoglobin A1c (04/17/2020 1:53 AM EST) Hemoglobin A1C 11.2(H) 4.0 - 5.6 % 04/17/2020 6:45 AM EST [facility] Comment: Hemoglobin A1c Interpretation Guidelines: Normal: <5.7% Prediabetes: 5.7-6.4% Diabetes: >/= 6.5% Diagnosis requires two independent tests unless clinical diagnosis is clear. Some clinical conditions, particularly anemias and hemoglobinopathies, may interfere with the diagnostic accuracy of hemoglobin A1c. The recommended goal for diabetic glycemic control (Hemoglobin A1c <7.0%) should be Individualized based on duration of diabetes, age/life expectancy, comorbid conditions, known CVD or advanced microvascular complications, hypoglycemia unawareness, and other individual patient considerations. Whole blood specimen (specimen) 04/17/2020 1:53 AM EST 04/17/2020 1:58 AM EST us Emiliano Magaña MD LAB BLOOD ORDERABLES Final Resu lt [facility] [address] [place] [address], [facility] * (ABNORMAL) Lipid Profile (04/17/2020 1:53 AM EST) Cholesterol, Total 158 0 - 200 mg/dL 04/17/2020 2:23 AM EST [facility] Triglycerides 189(H) 10 - 149 mg/dL 04/17/2020 2:23 AM EST [facility] HDL 25(L) 60 - 92 mg/dL 04/17/2020 2:23 AM EST [facility] Comment: LIPID PROFILE INTERPRETATION CHOLESTEROL,TOTAL(mg/dL) DESIRABLE: < 200 BORDERLINE HIGH RISK: 200 - 239 HIGH RISK(UNDESIRABLE): =/> 240 LDL CHOLESTEROL(mg/dL) OPTIMAL: < 100 NEAR HIGH OPTIMAL: 100 - 129 BORDERLINE HIGH RISK: 130 - 159 HIGH RISK: 160 - 189 VERY HIGH RISK: =/> 190 HDL CHOLESTEROL(mg/dL) HIGH RISK(UNDESIRABLE): < 40 BORDERLINE: 40 - 59 LOW RISK (DESIRABLE): => 60 TRIGLYCERIDES (mg/dL) NORMAL(DESIRABLE): < 150 BORDERLINE HIGH RISK: 150 - 199 HIGH RISK: 200 - 499 VERY HIGH RISK: =/> 500 Based on the guidlines of the National Cholesterol Education Program (NCEP). Assumes sample obtained after a 9- to 12- hour fast. LDL Cholesterol 95 mg/dL 2:23 AM EST [facility] Plasma specimen (specimen) 04/17/2020 1:53 AM EST 04/17/2020 1:58 AM EST Narrative [facility] - 04/17/2020 2:23 AM EST Fasting us Emiliano Magaña MD LAB BLOOD ORDERABLES Final Resu lt [facility] [address] * (ABNORMAL) Comprehensive metabolic panel (04/17/2020 1:53 AM EST) Sodium 138 133 - 146 mmol/L 04/17/2020 2:23 AM EST [facility] Potassium 3.5 3.5 - 5.3 mmol/L 04/17/2020 2:23 AM EST [facility] Chloride 104 98 - 110 mmol/L 04/17/2020 2:23 AM EST [facility] CO2 23 21 - 33 mmol/L 04/17/2020 2:23 AM EST [facility] Anion Gap 11 3 - 16 mmol/L 04/17/2020 2:23 AM [facility] BUN 12 7 - 25 mg/dL 04/17/2020 2:23 AM [facility] Creatinine 0.76 0.60 - 1.30 mg/dL 04/17/2020 2:23 AM [facility] Glucose 178(H) 70 - 100 mg/dL 04/17/2020 2:23 AM [facility] Calcium 9.4 8.6 - 10.3 mg/dL 04/17/2020 2:23 AM [facility] Total Bilirubin 0.6 0.0 - 1.5 mg/dL 04/17/2020 2:23 AM [facility] AST 10(L) 13 - 39 U/L 04/17/2020 2:23 AM [facility] ALT 6(L) 7 - 52 U/L 04/17/2020 2:23 AM [facility] Alkaline Phosphatase 68 36 - 125 U/L 04/17/2020 2:23 AM [facility] Total Protein 7.3 6.4 - 8.9 g/dL 04/17/2020 2:23 AM [facility] Albumin 4.3 3.5 - 5.7 g/dL 04/17/2020 2:23 AM [facility] Osmolality, Calculated 290 278 - 305 mOsm/kg 04/17/2020 2:23 AM [facility] eGFR AA CKD-EPI >90 See note. 2:23 AM [facility] Comment: As of 2015 the estimated GFR is calculated from serum creatinine using the Chronic Kidney Disease Epidemiology Collaboration (CKD-EPI) equation in patients 18 years and older. The reference range is >60 mL/min/1.73m2. eGFR values greater than 90 will be reported as >90mL/min/1.73m2. Reference: Ras , Estuardo LA, Denis CH, Esteban YL, Vince AF, 3rd, Suzanne HI, et. al. A new equation to estimate glomerular filtration rate. [employer] Med. 2009:150(9):604-12 eGFR NONAA CKD-EPI >90 See note. 2020 2:23 AM EST [facility] Comment: As of 2015 the estimated GFR is calculated from serum creatinine using the Chronic Kidney Disease Epidemiology Collaboration (CKD-EPI) equation in patients 18 years and older. The reference range is >60 mL/min/1.73m2. eGFR values greater than 90 will be reported as >90mL/min/1.73m2. Reference: Ras , Estuardo LA, Denis CH, Esteban YL, Vince AF, 3rd, Suzanne HI, et. al. A new equation to estimate glomerular filtration rate. [employer] Med. 2009:150(9):604-12 Plasma specimen (specimen) 04/17/2020 1:53 AM EST 04/17/2020 1:58 AM EST us Emiliano Magaña MD LAB BLOOD ORDERABLES Final Resu lt [facility] [address] * ED HIV 1+2 Antibody/Antigen with Reflex (09/25/2018 9:34 PM EDT) HIV 1+2 AB/AGN Nonreactive Nonreactive 09/26/2018 12:08 AM EDT [facility] Serum specimen (specimen) 09/25/2018 9:34 PM EDT 09/25/2018 10:52 PM EDT Narrative [facility] - 09/26/2018 12:08 AM EDT HIV-1 p24 Antigen and HIV-1/HIV-2 Antibody not detected. us Carli Elliott MD LAB BLOOD ORDERABLES Final Resul t [facility] [address] * ED HCV Ab Reflex To HCV Quant (09/25/2018 4:39 PM EDT) HCV Ab Nonreactive Nonreactive 09/25/2018 11:46 PM EDT [facility] Comment:Health Department no tified in accordance with reportable infectious disease guidelines. HCVAB Number [id number] 0.00 - 0.79 S/CO 09/25/2018 11:46 PM EDT [facility] Serum specimen (specimen) 09/25/2018 4:39 PM EDT 09/25/2018 8:27 PM EDT Carli Elliott MD LAB BLOOD ORDERABLES Final Resul t [facility] [address] [place] [address], [facility] * COLONOSCOPY (09/14/2014) Colonoscopy done Historical Provider HEALTH MAINTENANCE Final Result * DEXA SCAN (07/19/2014) Dexa Scan not done/male Anatomical Region Laterality Modality Other Historical Provider HEALTH MAINTENANCE Final Result from Last 3 Months or Most Recently Relevant to Health Maintenance Insurance MEDICARE A AND B MEDICAID [place] [employer] CHO[employer] PPO Advance Directives For more information, please contact: [phone] * Full Code (Latest Code Status on File) Date Activated Date Inactivated Comments 04/17/2020 1:06 AM 04/20/2020 5:46 PM * Full Code Date Activated Date Inactivated Comments 02/21/2019 1:04 PM 02/26/2019 9:34 PM * Full Code Date Activated Date Inactivated Comments 09/26/2018 2:44 AM 10/07/2018 11:09 PM * Full Code Date Activated Date Inactivated Comments 12/18/2016 9:18 PM 12/20/2016 6:22 PM * Full Code Date Activated Date Inactivated Comments 12/18/2016 9:18 PM 12/18/2016 9:18 PM Care Teams Snuff Grinder And Screener Relationship Specialty Start Date End Date Karissa Henry NP [address] [address] PCP - General Nurse Practitioner 02/19/21
--- OUTSIDE RECORDS SUMMARY | 2024-09-08 21:25 | XMS_ITS | Clinical Summary ---
Author Organization [facility] Address [address] [place] [address] Care Team Providers Care Delivery Director Name Role Phone Shamika Roy APRN Primary Care Provider [phone] Allergies Active Allergy Reactions Criticality Noted Date Comments Aspirin Anaphylaxis High 09/07/2023 Atorvastatin Anaphylaxis High 02/21/2019 Myopathy Other reaction(s): Other (See Comments) Myopathy Bee Venom Anaphylaxis High 02/10/2016 Other reaction(s): Anaphylaxis Bupropion Other - please document in the comment field Low 04/07/2019 Dipeptidyl Peptidase-4 Inhibitors (Gliptins) Diarrhea,Anaphylaxis ,Unknown - Patient states they do not know rxn details High 01/01/2011 Cold clammy Cold clammy Cold clammy Cold clammy Cold clammy Other reaction(s): Diarrhea Empagliflozin Other - please document in the comment field High 01/05/2019 Other reaction(s): Other (See Comments) DKA Other reaction(s): Other (See Comments) DKA Other reaction(s): Other (See Comments) DKA Other reaction(s): Other (See Comments) DKA Other reaction(s): Other (See Comments) DKA Hymenoptera Venom Preparations Other - please document in the comment field Low 04/29/2020 Ibuprofen Anaphylaxis High 08/15/2010 Metformin And Related Diarrhea Low 01/01/2011 Also with XR metformin [...] XR metformin Also with XR metformin Metoclopramide Rash,Anaphylaxis High 07/07/2018 Paradoxical response Paradoxical agitation/dystonia. Tolerates phenergan. [...] phenergan. Paradoxical agitation/dystonia. Tolerates phenergan. Paradoxical response Midazolam Unknown - Patient states they do not know rxn details Low 08/31/2014 Question of paradoxical response Question of paradoxical response Other reaction(s): Other [...] paradoxical response Paradoxical effect per patient Nsaids Anaphylaxis High 09/07/2023 Wasp Venom Protein Other - please document in the comment field Low 10/11/2012 Other reaction(s): Other (See Comments), Unknown Other reaction(s): Other (See Comments), Unknown Other reaction(s): Other (See Comments), Unknown Medications pregabalin (Lyrica) 150 MG capsule Take 1 capsule (150 mg) by mouth 3 (three) times a day. Active oxyCODONE (Roxicodone) 10 MG immediate release tablet Take 1 tablet (10 mg) by mouth every 4 (four) hours if needed. Active topiramate (Topamax) 25 MG tablet Take 1 tablet (25 mg) by mouth 1 (one) time each day. Active ergocalciferol (Vitamin D-2) 1.25 MG (13926 UT) capsule Take 1 capsule (50,000 Units) by mouth 2 (two) times a week. Active losartan (Cozaar) 50 MG tablet Take 1 tablet (50 mg) by mouth 1 (one) time each day. Active LORazepam (Ativan) 1 MG tablet Take 1 tablet (1 mg) by mouth 3 (three) times a day if needed for anxiety. Active traZODone (Desyrel) 50 MG tablet Take 1-2 tablets (50-100 mg) by mouth every night. Active promethazine (Phenergan) 25 MG tablet Take 1 tablet (25 mg) by mouth every 6 (six) hours if needed for nausea or vomiting. Active baclofen (Lioresal) 10 MG tablet Take 1 tablet (10 mg) by mouth 3 (three) times a day. Active empagliflozin (Jardiance) 25 MG Take 1 tablet (25 mg) by mouth 1 (one) time each day. Active fenofibrate (Tricor) 48 MG tablet Take 1 tablet (48 mg) by mouth 1 (one) time each day. Active semaglutide (Ozempic, 0.25 or 0.5 MG/DOSE,) 2 MG/1.5ML solution pen-injector inj. pen Inject 0.1875 mL (0.25 mg) under the skin 1 (one) time per week. Active potassium chloride CR (Klor-Con) 10 MEQ ER tablet Take 1 tablet (10 mEq) by mouth 1 (one) time each day. Do not crush, chew, or split. Active insulin glargine (Lantus SoloStar) 100 UNIT/ML injection pen Inject 80 Units under the skin 2 (two) times a day. Active levETIRAcetam (Keppra) 750 MG tablet Take 2 tablets (1,500 mg) by mouth 2 (two) times a day. Active atorvastatin (Lipitor) 80 MG tablet Take 1 tablet (80 mg) by mouth every night. 30 tablet 1 4 Active Additional Information Patient not taking.Reported on 11/10/2023 acetaminophen (Tylenol) 325 MG tablet Take 2 tablets (650 mg) by mouth. Active Blood Glucose Monitoring Suppl (Accu-Chek Guide Ut) w/Device kit USE DIRECTED TO CHECK BLOOD SUGAR PER PROVIDER 4 Active Vitamin D3 1.25 MG (51989 UT) capsule TAKE 1 CAPSULE BY MOUTH 2 TIMES A WEEK ON THE SAME DAYS EACH WEEK Active clobetasol (Temovate) 0.05 % cream APPLY TOPICALLY TO THE AFFECTED AREA TWICE DAILY 4 Active glucose (Trueplus Glucose) 4 g chewable tablet CHEW 1 TABLET BY MOUTH DAILY NEEDED 4 Active EPINEPHrine (Epipen) 0.3 MG/0.3ML injection syringe INJECT CONTENTS OF 1 PEN IN THE MUSCLE ONE TIME DIRECTED 4 Active folic acid (Folvite) 400 MCG tablet Take 1 tablet (400 mcg) by mouth 1 (one) time each day. Active Accu-Chek Guide test strip USE DIRECTED TO TEST BLOOD SUGAR FOUR TIMES DAILY 4 Active insulin aspart (NovoLOG) 100 UNIT/ML injection pen Inject under the skin. Active NovoLOG 100 UNIT/ML injection vial ADMINISTER 2 TO 12 UNITS PER SLIDING SCALE FOUR TIMES DAILY 4 Active insulin aspart protamine-insul in aspart (NovoLOG Mix 70-30) (70-30) 100 UNIT/ML injection pen Inject 15 Units under the skin 3 times a day. Active insulin NPH-insulin regular (Novolin 70-30,Humulin 70-30) (70-30) 100 UNIT/ML injection vial Inject under the skin. Active BD Insulin Syringe U/F 31G X 07/30 1 ML misc USE DIRECTED 4 Active Accu-Chek Softclix Lancets lancets USE DIRECTED TO TEST BLOOD SUGAR FOUR TIMES DAILY 4 Active meclizine (Antivert) 12.5 MG tablet Take 1 tablet (12.5 mg) by mouth 3 (three) times a day if needed. Active Melatonin-Pyrid oxine 3-1 MG tablet Take 5 mg by mouth. Active metoprolol succinate XL (Toprol-XL) 50 MG 24 hr tablet Take 1 tablet (50 mg) by mouth 1 (one) time each day. 4 Active pantoprazole (ProtoNix) 20 MG EC tablet Take 1 tablet (20 mg) by mouth 1 (one) time each day. 4 Active ZINC METHIONATE PO Take 1 tablet by mouth 1 (one) time each day. Active clopidogrel (Plavix) 75 MG tablet Take 1 tablet (75 mg) by mouth 1 (one) time each day. 90 tablet 3 4 Active rosuvastatin (Crestor) 10 MG tablet Take 1 tablet (10 mg) by mouth 1 (one) time each day. 90 tablet 3 4 Active levocetirizine (Xyzal) 5 MG tablet 1 tablet (5 mg). 4 Active methocarbamol (Robaxin) 750 MG tablet 1 tablet (750 mg). 4 Active Active Problems Problem Noted Date Diagnosed Date History of TIA (transient ischemic attack) 11/09 History of cerebellar stroke 11/10/2023 Stroke-like symptoms 09/07/2023 Social History Tobacco Use Types Packs/Day Years Used Date Smoking Tobacco: Every Day Cigarettes Smokeless Tobacco: Never Tobacco Cessation:Ready to Q uit: Not Asked; Counseling Given: Not Answered Alcohol Use Standard Drinks/Week Comments Never 0 (1 standard drink = 0.6 oz pur e alcohol) Humiliation, Afraid, Rape, and Kick questionnair e Answer Date Recorded Within the last year, have y ou been afraid of your partner or ex-partner? No 09/08/2023 Within the last year, have y ou been humiliated or emotionally abused in other ways by your partner or ex-partner? No Within the last year, have y ou been kicked, hit, slapped, or otherwise physically hurt by your partner or ex-partner? No 09/08/2023 Within the last year, have y ou been raped or forced to have any kind of sexual activity by your partner or ex-partner? No 09/08/2023 Hunger Vital Sign Answer Date Recorded Within the past 12 months, y ou worried that your food would run out before you got the money to buy more. Never true 09/08/19 Within the past 12 months, t he food you bought just didn't last and you didn't have money to get more. Never true 09/08/2023 PRAPARE - Transportation Answer Date Re corded In the past 12 months, has l ack of transportation kept you from medical appointments or from getting medications? No 08/16 In the past 12 months, has l ack of transportation kept you from meetings, work, or from getting things needed for daily living? No 09/08/2023 Housing Stability Vital Sign Answer Silvestre e Recorded In the last 12 months, was t here a time when you were not able to pay the mortgage or rent on time? No 09/08/2023 In the last 12 months, how many places have you lived? 2 09/08/2023 In the last 12 months, was t here a time when you did not have a steady place to sleep or slept in a [facility] (including now)? No 09/08/2023 Utilities Answer Date Recorded In the past 12 months has th e electric, gas, oil, or water company threatened to shut off services in your home? No 09/08/2023 Sex and Gender Information Value Date Recorded Sex Assigned at Not on file Legal Sex Male 5:46 AM EST Gender Identity Not on file Sexual Orientation Not on file Last Filed Vital Signs Vital Sign Reading Time Taken Comments Blood Pressure 94/64 01/01/2024 9:52 AM EDT Pulse 85 01/01/2024 9:52 AM EDT Temperature 36.7 C (98.1 F) 09/08/2023 7:24 AM EDT Respiratory Rate 13 09/08/2023 7:24 AM EDT Oxygen Saturation 97% 01/01/2024 9:52 AM EDT Inhaled Oxygen Concentration - - Weight 108 kg (238 lb 1.6 oz) 01/01/2024 9:52 AM EDT Height 185.4 cm (6' 1 ) 01/01/2024 9:52 AM EDT Body Mass Index 31.41 01/01/2024 9:52 AM EDT Plan of Treatment Health Maintenance Due Date Last Done Comments [facility]-Depression Screening 1973 [facility]-Medicare Annual Wellness (AWV) 1973 [facility]-Infant/Child/Adol SDOH Screenings 1973 Diabetes: Dental Exam 09/19/1983 [facility]-DTaP,Tdap,and Td Vaccines (1 - Tdap) 1992 [facility]-Hepatitis B Vaccines (1 of 3 - 19+ 3-dose series) 1992 [facility]-Pneumococcal Vaccine: 50+ Years (2 of 2 - PCV) 12/19/2010 12/19/2009 CT Colonography 2018 Colonoscopy 2018 FIT-DNA 2018 FIT 2018 FOBT 2018 Sigmoidoscopy 2018 [facility]-Colorectal Cancer Screening 2018 [facility]-Zoster Vaccines (2 of 3) 11/18/2023 09/23/2023 [facility]-Diabetes: Hemoglobin A1C 12/07/2023 09/07/2023, 04/16/2023 [facility]- SDOH Screenings 03/09/2024 [facility]-Adult SDOH Screenings 03/09/2024 09/08/2023 [facility]-HIV Screening Completed 09/07/2023 [facility]-Hepatitis C Screening Completed 09/07/2023, [facility]-Obesity Intervention Completed 024, 01/01/2024, 11/10/2023, Additional history exists [id number] Vaccine Completed 01/09/2024, 12/14/19 [facility]-Influenza Vaccine Completed 01/09/2024 , 11/14/2022, 01/12/2014, Additional history exists HPV Vaccines Aged Out No longer eligi ble based on patient's age to complete this topic [facility]-HIB Vaccines Aged Out No longer e ligible based on patient's age to complete this topic [facility]-Hepatitis A Vaccines Aged Out No longer eligible based on patient's age to complete this topic [facility]-IPV Vaccines Aged Out No longer e ligible based on patient's age to complete this topic [facility]-Rotavirus Vaccines Aged Out No lo nger eligible based on patient's age to complete this topic Procedures Procedure Name Priority Date/Time Associated Diagnosis Comments HEPATITIS C ANTIBODY - ED W/REFLEX TO HCV QUANT PCR STAT 09/07/2023 6:31 PM EDT ED HIV 1/2 ANTIBODY/ANTIGEN SCREEN WITH REFLEX TO HIV I/II DIFFERENTIATION STAT 09/07/2023 6:31 PM EDT HEMOGLOBIN A1C Add-On 09/07/2023 2:25 PM EDT from Last 3 Months or Most Recently Relevant to Health Maintenance Results * Hepatitis C Antibody - ED (09/07/2023 6:31 PM EDT) Hepatitis C Antibody Negative Negative 09/07/2023 6:31 PM EDT [facility] Blood Venous blood specimen / Unknown 09/07/2023 5:51 PM EDT us Aron Lala MD LAB BLOOD ORDERABLES Final Re sult [facility] [address] [place] [address] * ED HIV 1/2 Antibody/Antigen Screen w/Reflex to HIV 1/2 Differentiation (09/07/2023 6:31 PM EDT) HIV 1 & 2 Antibody/Antigen Screen Non Reactive Non Reactive 09/07/2023 6:31 PM EDT [facility] Comment:Screening for HIV 1 & 2 antibodies, and P24 antigen is NONREACTIVE. No confirmatory testing is required. Blood Venous blood specimen / Unknown 09/07/2023 5:50 PM EDT us Aron Lala MD LAB BLOOD ORDERABLES Final Re sult Performing Organization Address City/[facility] Co de Phone Number [facility] [address] [place] [address] * (ABNORMAL) Hemoglobin A1c (09/07/2023 2:25 PM EDT) Hemoglobin A1c 10.7(H) <5.7 % 09/07/2023 6:53 PM EDT [facility] Blood Venous blood specimen / Unknown Venipuncture / Unknown 09/07/2023 2:25 PM EDT 09/07/2023 2:36 PM EDT Narrative [facility] - 09/07/2023 6:53 PM EDT HA1C Interpretive Data: Diagnosis of Diabetes: Diabetic > or = 6.5% Pre-diabetic 5.7 to 6.4% Non-diabetic < or = 5.6% Glycemic Targets for Type I and Type II Diabetics: Non- Adults <7.0% Adults <6.0% Children and Adolescents <7.5% Source: [place] [employer]. Standards of medical care in diabetes,2017. Diabetes Care.2017:40 (suppl 1):S1-S135. HbA1c assay performed by an ion-exchange chromatography method that is certified traceable to the DCCT. us Aarti Rodriguez MD LAB BLOOD ORDERABLES Final Re sult Performing Organization Address City/[facility] Co de Phone Number [facility] [address] [place] [address] from Last 3 Months or Most Recently Relevant to Health Maintenance Insurance MEDICARE Advance Directives * Full Code (Latest Code Status on File) Date Activated Date Inactivated Comments 09/07/2023 5:41 PM 09/08/2023 3:35 PM Question Answer Comments Patient has decision-making capacity? Yes Care Teams Delivery Director Relationship Specialty Start Date End Date Shamika Roy APRN [address] [place] [id number] PCP - General 09/08/23
--- OUTSIDE RECORDS SUMMARY | 2024-09-08 21:25 | XMS_ITS | Encounter Summary ---
Author Organization Healthcare Address [address] [place] [address] Care Team Providers Care Hospitalist Program Director Name Role Phone Shamika Roy APRN Primary Care Provider [phone] Encounter Details Date Type Department Care Team ([facility] st Contact Info) Description 06/03/2023 Orders Only External Location [address] [place] [address] Provider, External Social History Tobacco Use Types Packs/Day Years Used Date Smoking Tobacco: Never Assessed Sex and Gender Information Value Date Recorded Sex Assigned at Not on file Legal Sex Male 5:46 AM EST Gender Identity Not on file Sexual Orientation Not on file documented as of this encounter Plan of Treatment Not on file documented as of this encounter Procedures Procedure Name Priority Date/Time Associated Diagnosis Comments MR MSK OUTSIDE IMAGES 06/03/2023 2:26 PM EDT documented in this encounter Results * MR MSK OUTSIDE IMAGES (06/03/2023 2:26 PM EDT) Anatomical Region Laterality Modality Magnetic Resonan ce 06/03/2023 2:26 PM EDT us External Provider IMG MRI PROCEDURES Final Resul t documented in this encounter Visit Diagnoses Not on filedocumented in this encounter Care Teams Hospitalist Program Director Relationship Specialty Start Date End Date Shamika Roy APRN [address] [place] [address] PCP - General 09/08/23 documented as of this encounter
--- OUTSIDE RECORDS SUMMARY | 2024-09-08 21:25 | XMS_ITS | Encounter Summary ---
Author Organization Healthcare Address [address] [place] [address] Care Team Providers Care Equipment Services Associate Name Role Phone Shamika Roy APRN Primary Care Provider [phone] Encounter Details Date Type Department Care Team (Late st Contact Info) Description 12/03/2023 Orders Only External Location [address] [place] [address] Mikey Hernandez MD [address] [place] [address] Social History Tobacco Use Types Packs/Day Years Used Date Smoking Tobacco: Never Assessed Humiliation, Afraid, Rape, and Kick questionnair e [...] place to sleep or slept in a jail (including now)? No 09/08/2023 Utilities Answer Date [...] Name Priority Date/Time Associated Diagnosis Comments MR OUTSIDE IMAGES 12/03/2023 1:16 PM EDT documented in this encounter Results * MR transfer of outside films (12/03/2023 1:16 PM EDT) Anatomical Region Laterality Modality Magnetic Resonan ce 12/03/2023 1:16 PM EDT Mikey Hernandez MD IMG MRI PROCEDURES Final Result documented in this encounter Visit Diagnoses Not on filedocumented in this encounter Additional Health Concerns Assessment Noted Time A fall risk assessment has been complete d for the patient 11/10/2023 1:46 PM EDT A Body Mass Index follow-up plan has been documented for the patient 11/10/2023 5:22 PM EDT documented as of this encounter Care Teams Equipment Services Associate Relationship Specialty Start Date End Date Shamika Roy APRN [address] [place] [id number] PCP - General 09/08/23 documented as of this encounter
--- OUTSIDE RECORDS SUMMARY | 2024-09-08 21:25 | XMS_ITS | Clinical Summary ---
Author Organization [facility] Address [facility] [place] [address] Care Team Providers Care Fish Farm Laborer Name Role Phone Pcp, None MD Primary Care Provider [phone] Allergies Active Allergy Reactions Criticality Noted Date Comments Aspirin Anaphylaxis High 01/05/2016 Bee Sting Unknown 01/05/2016 Dipeptidyl Peptidase-4 Inhibitors (Gliptins) Diarrhea 01/05/2016 Ibuprofen Anaphylaxis High 01/05/2016 Linagliptin Unknown 01/05/2016 Cold clammy Metformin Diarrhea 01/05/2016 Also with XR metformin Midazolam Unknown 01/05/2016 Question of paradoxical response Nsaids Anaphylaxis High 01/05/2016 Sitagliptin Diarrhea 01/05/2016 Medications glucose blood STRP One Touch Verio strips. Use as directed to test blood sugars 4 times daily 6 Active glucagon (GLUCAGON EMERGENCY) 1 MG KIT Use as directed for hypoglycemia 6 Active insulin aspart (NOVOLOG FLEXPEN) 100 UNIT/ML SOPN pen Use as directed up following dosing chart, average 40 units daily 6 Active insulin glargine, LANTUS, (LANTUS SOLOSTAR) 100 UNIT/ML SOPN pen Use 40 Units. 6 Active ONETOUCH DELICA LANCETS 33G MISC 1 each by Does Not Apply route. 6 Active Insulin Pen Needle (BD PEN NEEDLE EMIL U/F) 32G X 4 MM MISC Use to inject insulin 4 times daily as directed 6 Active Testosterone 20.25 MG/1.25GM (1.62%) GEL 20.25 mg by Transdermal route. 6 Active EPINEPHrine 0.15 MG/0.15ML SOAJ 0.15 mg by Does Not Apply route as needed. 2 each 1 6 Active clotrimazole-be tamethasone 1-0.05 % LOTN Apply topically daily. 30 mL 5 7 Active lisinopril (PRINIVIL,ZESTR IL) 10 MG TABS Take 1 tablet by mouth daily. 30 tablet 5 8 Active albuterol (PROAIR HFA) 108 (90 Base) MCG/ACT AERS Use 2 puffs every 6 (six) hours as needed. 1 inhaler 2 8 Active clopidogrel (PLAVIX) 75 MG TABS Take 1 tablet by mouth daily. 90 tablet 1 8 Active fluconazole (DIFLUCAN) 100 MG TABS Take 1 tablet by mouth daily. 7 tablet 8 Active Xczjiedfxr-EQ-O angela Polysacch (ALCORTIN A) 1-2-1 % GEL Apply topically daily. 48 g 5 8 Active atorvastatin (LIPITOR) 80 MG TABS Take 1 tablet by mouth daily. 90 tablet 1 9 Active vitamin D-2 (ERGOCALCIFEROL ) 58951 UNIT CAPS Take 1 capsule by mouth once a week. 4 capsule 5 9 Active methylPREDNIsol one (MEDROL DOSPACK) 4 MG TBPK Take by mouth as per package directions. 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 Mccarty Abscess of abdominal wall 02/11/2016 Chronic back pain 01/05/2016 Irritable bowel syndrome 01/05/2016 Reactive airway disease 01/05/2016 Testosterone deficiency 11/14/2015 Lumbar disc herniation with radiculopathy 2015 Attention deficit disorder 08/21/2015 Type 2 diabetes mellitus wit hout complication, with long-term current use of insulin 10/27/2014 Overview (01/05/2016): Overview: replace inactive diagnosis Neuropathy 10/27/2014 Overview (05/20/2017): lyrica effective Tobacco dependence syndrome 09/08/2014 Disorder of intervertebral disc 07/19/2014 Overview (04/05/2016): Overview: H/O fusion Overview: H/O fusion History of colectomy 07/19/2014 Hoarseness 09/01/2013 Disorder of vocal cord 09/01/2013 Edema of glottis 09/01/2013 Major depressive disorder 01/16/2013 Tobacco use 12/19/2010 Resolved Problems Problem Noted Date Diagnosed Date Resolved Date Acute respiratory failure 01/16/2013 Intentional drug overdose 01/16/2013 Diabetes mellitus 01/06/2013 01/09/2016 Chest pain 08/15/2010 01/09/2016 Immunizations Immunization Administration Dates Next Due Influenza Vaccine, Inactivated Trivalent PF 12/16,12/22/2012 Social History Tobacco Use Types Packs/Day Years Used Date Smoking Tobacco: Former Cigarettes Q uit: 01/16/2015 Smokeless Tobacco: Never Tobacco Cessation:Counseling Given: Yes Alcohol Use Standard Drinks/Week Comments No 0 (1 standard drink = 0.6 oz pur e alcohol) Sex and Gender Information Value Date Recorded Sex Assigned at Not on file Legal Sex Male 11:21 AM EDT Gender Identity Not on file Sexual Orientation Not on file Last Filed Vital Signs Vital Sign Reading Time Taken Comments Blood Pressure 160/85 05/29/2018 9:54 AM EDT Pulse 114 05/29/2018 9:54 AM EDT Temperature 37.1 C (98.8 F) 05/29/2018 9:54 AM EDT Respiratory Rate 12 08/15/2017 10:39 AM EDT Oxygen Saturation 97% 05/29/2018 9:54 AM EDT Inhaled Oxygen Concentration - - Weight 111.6 kg (246 lb) 05/29/2018 9:54 AM EDT Height 185.4 cm (6' 1 ) 05/29/2018 9:54 AM EDT Body Mass Index 32.46 05/29/2018 9:54 AM EDT Plan of Treatment Health Maintenance Due Date Last Done Comments DTap,Tdap,and Td (1 - Tdap) 1984 Colonoscopy 2018 PSA YEARLY 09/19/2023 Pneumococcal 50+ (2 of 2 - PCV) 09/19/2023 01/04/2018, 12/19/2009 Shingrix (#1) 09/19/2023 Influenza Vaccine (Season Ended) 2024 01/12/2014, 12/22/2012 RSV Vaccine (60+ or ) (1 - 1-dose 75+ series) 2048 Pneumococcal 0-49 Discontinued 01/04/2018, 12/19/2009 HPV Aged Out No longer eligi ble based on patient's age to complete this topic Meningococcal conjugate valent 4 (MCV4) Aged Out No longer eligible based on patient's age to complete this topic RSV Immunization (<20 months) Aged Out No longer eligible based on patient's age to complete this topic Care Teams Fish Farm Laborer Relationship Specialty Start Date End Date Pcp, MD Trice PCP - General Internal Medicine 07/14/18
--- OUTSIDE RECORDS SUMMARY | 2024-09-08 21:25 | XMS_ITS | Encounter Summary ---
Author Organization Healthcare Address [address] [place] [address] Care Team Providers Care Clerk Of Superior Court Name Role Phone Shamika Roy APRN Primary Care Provider [phone] Encounter Details Date Type Department Care Team (Late st Contact Info) Description 12/03/2023 Orders Only External Location [address] [place] [address] Mikey Hernandez MD [address] [place] [address] Social History Tobacco Use Types Packs/Day Years [...] place to sleep or slept in a mcc (including now)? No 09/08/2023 Utilities Answer Date [...] documented as of this encounter Care Teams Clerk Of Superior Court Relationship Specialty Start Date End Date Shamika Roy APRN [address] [place] [id number] PCP - General 09/08/23 documented as of this encounter
--- OUTSIDE RECORDS SUMMARY | 2024-09-08 21:25 | XMS_ITS | Encounter Summary ---
Author Organization Healthcare Address [address] [place] [address] Care Team Providers Care Swager Operator Name Role Phone Shamika Roy APRN Primary Care Provider [phone] Encounter Details Date Type Department Care Team (Late st Contact Info) Description 04/16/2023 Lab Requisition [facility] [address] [place] [address] Tony Rios PA [address] [place] [address] Routine general medical examination at a health care facility Social History Tobacco Use Types Packs/Day Years [...] Procedure Name Priority Date/Time Associated Diagnosis Comments SERUM DRUG SCREEN Routine 04/16/2023 7:2 8 AM EST Routine general medical examination at a health care facility ACUTE HEPATITIS PANEL Routine 04/16/2023 7:28 AM EST Routine general medical examination at a health care facility TOPIRAMATE LEVEL Routine 04/16/2023 7:28 AM EST Routine general medical examination at a health care facility LEVETIRACETAM LEVEL Routine 04/16/2023 7 :28 AM EST Routine general medical examination at a health care facility CBC WITH AUTO DIFFERENTIAL Routine 04/16/2023 7:28 AM EST Routine general medical examination at a [facility] care facility TSH Routine 04/16/2023 7:28 AM EST Routine general medical examination at a [facility] facility FREE T4, PLASMA Routine 04/16/2023 7:28 AM EST Routine general medical examination at a [facility] facility HEMOGLOBIN A1C Routine 04/16/2023 7:28 AM EST Routine general medical examination at a [facility] facility LIPID PROFILE, PLASMA Routine 04/16/2023 7:28 AM EST Routine general medical examination at a [facility] facility COMPREHENSIVE METABOLIC PANEL, PLASMA Routine 04/16/2023 7:28 AM EST Routine general medical examination at a [facility] facility documented in this encounter Results * TSH (04/16/2023 7:28 AM EST) Thyroid Stimulating Hormone, Plasma 2.48 0.40 - 4.20 uIU/mL 04/16/2023 10:01 AM EST [email or web address] Blood Venous blood specimen / Unknown Venipuncture / Unknown 04/16/2023 7:28 AM EST 04/16/2023 8:22 AM EST [facility] BLOOD ORDERABLES Final Re sult [facility] [address] [place] [address] * T4, free (04/16/2023 7:28 AM EST) Free T4, Plasma 1.3 0.8 - 1.7 ng/dL 04/16/2023 10:01 AM EST [email or web address] Blood Venous blood specimen / Unknown Venipuncture / Unknown 04/16/2023 7:28 AM EST 04/16/2023 8:22 AM EST us Tony FOWLER LAB BLOOD ORDERABLES Final Re sult [facility] [address] [place] [address] * (ABNORMAL) CBC and Differential (04/16/2023 7:28 AM EST) WBC Count 10.50(H) 3.70 - 10.30 10*3/uL LAB HEMATOLOGY METHOD 04/16/2023 9:[address] [facility] RBC Count 4.77 4.60 - 6.10 10*6/uL LAB HEMATOLOGY METHOD 04/16/2023 9:[address] [facility] HGB 13.5(L) 13.7 - 17.5 g/dL LAB HEMATOLOGY METHOD 04/16/2023 9:[address] [facility] HCT 40.5 40.0 - 51.0 % LAB HEMATOLOGY METHOD 04/16/2023 9:[address] [facility] Platelet Count 205 155 - 369 10*3/uL LAB HEMATOLOGY METHOD 04/16/2023 9:[address] [facility] MCV 85 79 - 98 fL LAB HEMATOLOGY METHOD 04/16/2023 9:[address] [facility] MCH 28.3 26.0 - 32.0 pg LAB HEMATOLOGY METHOD 04/16/2023 9:[address] [facility] MCHC 33.3 30.7 - 35.5 g/dL LAB HEMATOLOGY METHOD 04/16/2023 9:[address] [facility] RDW 13.1 11.5 - 14.5 % LAB HEMATOLOGY METHOD 04/16/2023 9:[address] [facility] MPV 10.8 8.8 - 12.5 fL LAB HEMATOLOGY METHOD 04/16/2023 9:[address] [facility] nRBC 0.0 <=0.0 per 100 WBCs LAB HEMATOLOGY METHOD 04/16/2023 9:[address] [facility] Differential Type Automated LAB HEMATOLOGY METHOD 04/16/2023 9:[address] [facility] Neutrophils % 48.0 % LAB HEMATOLOGY METHOD 04/16/2023 9:[address] [facility] Lymphocytes % 40.0 % LAB HEMATOLOGY METHOD 04/16/2023 9:[address] [facility] Monocytes % 8.0 % LAB HEMATOLOGY METHOD 04/16/2023 9:[address] [facility] Eosinophils % 3.0 % LAB HEMATOLOGY METHOD 04/16/2023 9:[address] [facility] Basophils % 1.0 % LAB HEMATOLOGY METHOD 04/16/2023 9:[address] [facility] Immature Granulocytes % 0.0 % LAB HEMATOLOGY METHOD 04/16/2023 9:[address] [facility] Neutrophils Absolute 5.04 1.60 - 6.10 10*3/uL LAB HEMATOLOGY METHOD 04/16/2023 9:[address] [facility] Lymphocytes Absolute 4.21(H) 1.20 - 3.90 10*3/uL LAB HEMATOLOGY METHOD 04/16/2023 9:[address] [facility] Monocytes Absolute 0.86 0.30 - 0.90 10*3/uL LAB HEMATOLOGY METHOD 04/16/2023 9:[address] [facility] Eosinophils Absolute 0.30 0.00 - 0.50 10*3/uL LAB HEMATOLOGY METHOD 04/16/2023 9:[address] [facility] Basophils Absolute 0.06 0.00 - 0.10 10*3/uL LAB HEMATOLOGY METHOD 04/16/2023 9:[address] [facility] Immature Granulocytes Absolute 0.03 0.00 - 0.06 10*3/uL LAB HEMATOLOGY METHOD 04/16/2023 9:[address] [facility] Blood Venous blood specimen / Unknown Venipuncture / Unknown 04/16/2023 7:28 AM EST 04/16/2023 8:09 AM EST Narrative [facility] - 04/16/2023 9:38 AM EST Therapeutic decision making should be based on absolute values, rather than percentages. us Tony FOWLER LAB BLOOD ORDERABLES Final Re sult [facility] [address] [place] [address] * (ABNORMAL) Hemoglobin A1c (04/16/2023 7:28 AM EST) Hemoglobin A1c 10.8(H) <5.7 % 04/16/2023 10:[address] [facility] Blood Venous blood specimen / Unknown Venipuncture / Unknown 04/16/2023 7:28 AM EST 04/16/2023 8:10 AM EST Narrative [facility] - 04/16/2023 10:43 AM EST [facility] Interpretive Data: Diagnosis of Diabetes: Diabetic > or = 6.5% Pre-diabetic 5.7 to 6.4% Non-diabetic < or = 5.6% Glycemic Targets for Type I and Type II Diabetics: Non- Adults <7.0% Adults <6.0% Children and Adolescents <7.5% Source: [place] [employer]. Standards of medical care in diabetes,2017. Diabetes Care.2017:40 (suppl 1):S1-S135. HbA1c assay performed by an ion-exchange chromatography method that is certified traceable to the DCCT. us Tony FOWLER LAB BLOOD ORDERABLES Final Re sult [facility] [address] [place] [address] * (ABNORMAL) Lipid panel (04/16/2023 7:28 AM EST) Cholesterol, Plasma 86 <200 mg/dL 04/16/2023 10:01 AM EST [facility] Comment: Cholesterol Reference Range (age >17 years): Desirable <200 mg/dL Borderline 200 to 239 mg/dL Undesirable >239 mg/dL HDL 28(L) >=40 mg/dL 04/16/2023 10:01 AM EST [email or web address] Comment: HDL Cholesterol Reference Ranges (age >17 years): Female, acceptable > or = 50 mg/dL Male, acceptable > or = 40 mg/dL Triglycerides, Plasma 155(H) <150 mg/dL 04/16/2023 10:01 AM EST [email or web address] Comment: Triglyceride Reference Range (age >17 years): Desirable: <150 mg/dL Borderline high: 150 to 199 mg/dL High: 200 to 499 mg/dL Very high: >499 mg/dL Increased risk of pancreatitis: >1000 mg/dL Cholesterol/HDL Ratio 3 04/16/2023 10:01 AM EST [email or web address] LDL, Calculated 32 <100 mg/dL 10:01 AM EST [email or web address] Comment: LDL Cholesterol Reference Range (age >17 years): Optimal: <100 mg/dL Near or above optimal: 100 - 129 mg/dL Borderline high: 130 - 159 mg/dL High: 160 - 189 mg/dL Very high: >189 mg/dL LDL Cholesterol Reference Range (age <18 years): Desirable: <110 mg/dL Borderline: 110 - 129 mg/dL Undesirable: >130 mg/dL LDL Cholesterol is calculated using the Ellis/NIH equation. Fasting greater than or equal to 12 hours? Unknown 04/16/2023 10:[address] [facility] Blood Venous blood specimen / Unknown Venipuncture / Unknown 04/16/2023 7:28 AM EST 04/16/2023 8:22 AM EST us Tony FOWLER LAB BLOOD ORDERABLES Final Re sult [facility] [address] [place] [address] * (ABNORMAL) Comprehensive metabolic panel (04/16/2023 7:28 AM EST) Glucose, Plasma 222(H) 74 - 99 mg/dL 04/16/2023 10:01 AM [facility] BUN, Plasma 12 7 - 21 mg/dL 04/16/2023 10:01 AM [facility] Creatinine, Plasma 0.80 0.80 - 1.30 mg/dL 04/16/2023 10:01 AM [facility] BUN/Creatinine Ratio 15 04/16/2023 10:01 AM [facility] Sodium, Plasma 138 136 - 145 mmol/L 04/16/2023 10:01 AM [facility] Potassium, Plasma 4.2 3.7 - 4.8 mmol/L 04/16/2023 10:01 AM [facility] Chloride, Plasma 103 97 - 107 mmol/L 04/16/2023 10:01 AM [facility] CO2, Plasma 25 22 - 29 mmol/L 04/16/2023 10:01 AM [facility] Anion Gap 10 6 - 16 mmol/L 04/16/2023 10:01 AM [facility] Total Calcium, Plasma 9.1 8.9 - 10.2 mg/dL 04/16/2023 10:01 AM [facility] Total Protein 7.3 6.3 - 7.9 g/dL 04/16/2023 10:[address] [facility] Albumin, Plasma 4.0 3.5 - 5.2 g/dL 04/16/2023 10:[address] [facility] AST, Plasma 26 10 - 50 U/L 04/16/2023 10:[address] [facility] ALT, Plasma 17 10 - 50 U/L 04/16/2023 10:[address] [facility] Alkaline Phosphatase, Plasma 68 40 - 115 U/L 04/16/2023 10:[address] [facility] Total Bilirubin, Plasma 0.6 0.2 - 1.1 mg/dL 04/16/2023 10:[address] [facility] eGFRcr 108.5 mL/min/1.7 3m*2 04/16/2023 10:[address] [facility] Comment:Reported eGFRcr in m L/min/1.73m2 is based the CKD-EPI 2020 equation that does not use a race coefficient. Blood Venous blood specimen / Unknown Venipuncture / Unknown 04/16/2023 7:28 AM EST 04/16/2023 8:22 AM EST us Tony FOWLER LAB BLOOD ORDERABLES Final Re sult Performing Organization Address City/[facility] de Phone Number [facility] [address] [place] [address] * Hepatitis panel, acute (04/16/2023 7:28 AM EST) Hepatitis B Surf Antigen Negative Negative 04/16/2023 10:[address] [facility] Hepatitis C Antibody Negative Negative 04/16/2023 10:[address] [facility] Hepatitis A Antibody IgM Negative Negative 04/16/2023 10:[address] [facility] Hepatitis B Core Antibody IgM Negative Negative 04/16/2023 10:[address] [facility] Blood Venous blood specimen / Unknown Venipuncture / Unknown 04/16/2023 7:28 AM EST 04/16/2023 8:25 AM EST us Tony FOWLER LAB BLOOD ORDERABLES Final Re sult Performing Organization Address City/[facility] Co de Phone Number [facility] [address] [place] [address] * (ABNORMAL) Serum Drug Screen (04/16/2023 7:28 AM EST) 9 Carboxy THC <5 <5 ng/mL 04/17/2023 9:32 PM EST [facility] Alprazolam <5 <5 ng/mL 04/17/2023 9:32 PM EST [facility] Amphetamine <10 <10 ng/mL 04/17/2023 9:32 PM EST [facility] Benzolyecgonine <20 <20 ng/mL 9:32 PM EST [facility] Buprenorphine <1 <1 ng/mL 04/17/2023 9:32 PM EST [facility] Butalbital <50 <50 ng/mL 04/17/2023 9:32 PM EST [facility] Clonazepam <5 <5 ng/mL 04/17/2023 9:32 PM EST [facility] Codeine <5 <5 ng/mL 04/17/2023 9:32 PM EST [facility] Diazepam <5 <5 ng/mL 04/17/2023 9:32 PM EST [facility] Fentanyl <1 <1 ng/mL 04/17/2023 9:32 PM EST [facility] Hydrocodone <2 <2 ng/mL 04/17/2023 9:32 PM EST [facility] Hydromorphone <5 <5 ng/mL 04/17/2023 9:32 PM EST [facility] Lorazepam 23(H) <5 ng/mL 04/17/2023 9:32 PM EST [facility] MDA <10 <10 ng/mL 04/17/2023 9:32 PM EST [facility] MDMA <10 <10 ng/mL 04/17/2023 9:32 PM EST [facility] Meperidine <5 <5 ng/mL 04/17/2023 9:32 PM EST [facility] Methadone <10 <10 ng/mL 04/17/2023 9:32 PM EST [facility] Methadone Metabolite <10 <10 ng/mL 03/2023 9:32 PM EST [facility] Methamphetamine <10 <10 ng/mL 9:32 PM EST [facility] Midazolam <5 <5 ng/mL 04/17/2023 9:32 PM EST [facility] Morphine <2 <2 ng/mL 04/17/2023 9:[address] [facility] Norbuprenorphine <5 <5 ng/mL 04/17/19 9:[address] [facility] Nordiazepam <10 <10 ng/mL 04/17/2023 9:[address] [facility] Oxazepam <5 <5 ng/mL 04/17/2023 9:[address] [facility] Oxycodone 12(H) <2 ng/mL 04/17/2023 9:[address] [facility] Oxymorphone <2 <2 ng/mL 04/17/2023 9:[address] [facility] Phenobarbital <50 <50 ng/mL 04/17/2023 9:[address] [facility] Temazepam <5 <5 ng/mL 04/17/2023 9:[address] [facility] Tramadol <20 <20 ng/mL 04/17/2023 9:[address] [facility] Blood Venous blood specimen / Unknown Venipuncture / Unknown 04/16/2023 7:28 AM EST 04/16/2023 8:[address] [facility] - 04/17/2023 9:32 PM EST Test performed by LC-MS/MS at the [facility]. This test was developed and its performance characteristics determined by [facility]. It has not been cleared or approved by the FDA. The laboratory is regulated under CLIA as qualified to perform high-complexity testing. This test is used for clinical purposes. us Tony FOWLER LAB BLOOD ORDERABLES Final Re sult [facility] [address] [place] [address] * Levetiracetam level (04/16/2023 7:28 AM EST) Levetiracetam (Keppra) 22.7 12.0 - 46.0 ug/mL 04/16/2023 9:[address] [facility] Blood Venous blood specimen / Unknown Venipuncture / Unknown 04/16/2023 7:28 AM EST 04/16/2023 8:32 AM EST Narrative [facility] - 04/16/2023 9:29 PM EST Test performed by LC-MS/MS at the [facility]. This test was developed and its performance characteristics determined by [facility]. It has not been cleared or approved by the FDA. The laboratory is regulated under CLIA as qualified to perform high-complexity testing. This test is used for clinical purposes. Tony FOWLER [facility] BLOOD ORDERABLES Final Re sult Performing Organization Address [facility] [place]/[facility] Co de Phone Number [facility] [address] [place] [address] * (ABNORMAL) Topiramate level (04/16/2023 7:28 AM EST) Topiramate <1.0(L) 2.0 - 20.0 ug/mL 04/16/2023 9:[address] [facility] Blood Venous blood specimen / Unknown Venipuncture / Unknown 04/16/2023 7:28 AM EST 04/16/2023 8:32 AM EST Narrative [facility] - 04/16/2023 9:36 PM EST Topiramate Reference Ranges: Anticonvulsant: 5.0 to 20.0 ug/mL Psychiatric: 2.0 to 8.0 ug/mL Test performed by LC-MS/MS at the [facility]. This test was developed and its performance characteristics determined by [facility]. It has not been cleared or approved by the FDA. The laboratory is regulated under CLIA as qualified to perform high-complexity testing. This test is used for clinical purposes. Tony FOWLER [facility] BLOOD ORDERABLES Final Re sult Performing Organization Address [facility] [place]/[facility] Co de Phone Number [facility] [address] [place] [address] documented in this encounter Visit Diagnoses Diagnosis Routine general medical examination at a health care facility documented in this encounter Care Teams Swager Operator Relationship Specialty Start Date End Date Shamika Roy APRN [address] [place], [place] [id number] PCP - General 09/08/23 documented as of this encounter
--- OUTSIDE RECORDS SUMMARY | 2024-09-08 21:25 | XMS_ITS | Clinical Summary ---
Author Organization [facility] Address [address] [place] [address] Care Team Providers Care Strike On Machine Operator Name Role Phone Carli Samayoa APRN - APPLIANCE TECHNICIAN Primary Care Provider Allergies Active Allergy Reactions Criticality Noted Date Comments Buffered Aspirin Anaphylaxis High 12/19/2010 Aspirin Anaphylaxis High 12/19/2010 Atorvastatin 04/29/2020 Bee Venom Anaphylaxis High 02/10/2016 Dipeptidyl Peptidase-4 Inhibitors (Gliptins) Diarrhea Low 01/01/2011 Other reaction(s): Diarrhea Empagliflozin High 01/05/2019 Other reaction(s): Other (See Comments) DKA Other reaction(s): Other (See Comments) DKA Environmental/Seasonal 07/07/2018 Hymenoptera Venom Preparations 04/29/2020 Sitagliptin 04/29/2020 Metformin Diarrhea Low 01/01/2011 Other reaction(s): Diarrhea Also with XR metformin Also with XR metformin Also with XR metformin Also with XR metformin Also with XR metformin Also with XR metformin Also with XR metformin Also with XR metformin Also with XR metformin Also with XR metformin Metformin And Related 04/29/2020 Metoclopramide Other (See Comments) Medium 07/07/2018 Paradoxical agitation/dystonia. Tolerates phenergan. Other reaction(s): Other (See Comments), Other: See Comments Paradoxical agitation/dystonia. Tolerates phenergan. Paradoxical response Paradoxical agitation/dystonia. Tolerates phenergan. Other reaction(s): Other: See Comments Paradoxical agitation/dystonia. Tolerates phenergan. Paradoxical agitation/dystonia. Tolerates phenergan. Paradoxical response Paradoxical agitation/dystonia. Tolerates phenergan. Other reaction(s): Other: See Comments Paradoxical agitation/dystonia. Tolerates phenergan. Paradoxical agitation/dystonia. Tolerates phenergan. Paradoxical response Midazolam Other (See Comments) 08/31/2014 Paradoxical effect per patient Other reaction(s): Other [...] of paradoxical response Paradoxical effect per patient Midazolam Hcl 04/07/2019 Ibuprofen 04/29/2020 Nsaids Anaphylaxis High 12/19/2010 Linagliptin 04/29/2020 Wasp Venom Protein 10/11/2012 Other reaction(s): Other (See Comments), Unknown Other reaction(s): Other (See Comments), Unknown Bupropion 04/29/2020 Medications EPINEPHrine (EPIPEN) 0.3 MG/0.3ML LIBORIO injection Inject 0.3 mLs into the muscle once as needed for 1 dose. 1 Device 2 03/27/19 12 Active pregabalin (LYRICA) 150 MG capsule Take 150 mg by mouth three times daily Active ONETOUCH DELICA LANCETS 33G MISC 1 each by Does not apply route Active Insulin Pen Needle 32G X 4 MM MISC 1 each by Does not apply route daily 100 each 3 12/05/19 17 Active glucose blood test strips (ONETOUCH VERIO) strip Test BS 3 times a day. On insulin. E 11.9 100 each 3 12/06/19 17 Active insulin glargine (LANTUS SOLOSTAR) 100 UNIT/ML injection pen Inject 20 Units into the skin nightly 15 mL 08/15/19 18 Active Additional Information Patient taking differently: 75 UnitsSubCUTAneous NIGHTLY,Has been on 40 units of Lantus BID at [facility], Reported on 04/29/2020 insulin aspart (NOVOLOG FLEXPEN) 100 UNIT/ML injection penIndications: sliding scale Inject into the skin 3 times daily (before meals) Indications: sliding scale Active metoprolol succinate (TOPROL XL) 25 MG extended release tablet Take 25 mg by mouth daily Active clopidogrel (PLAVIX) 75 MG tablet Take 75 mg by mouth daily Active baclofen (LIORESAL) 10 MG tablet Take 10 mg by mouth every 6 hours as needed (muscle spasms) Active promethazine (PHENERGAN) 25 MG tablet Take 25 mg by mouth every 6 hours as needed for Nausea Active losartan (COZAAR) 25 MG tablet Take 25 mg by mouth daily Active acetaminophen (TYLENOL) 325 MG tablet Take 650 mg by mouth every 6 hours as needed for Pain Active pantoprazole (PROTONIX) 40 MG tablet Take 1 tablet by mouth 2 times daily (before meals) 30 tablet 3 07/10/19 19 Active Additional Information Patient taking differently:40 mg OralDAILY, According to [facility], Reported on 04/29/2020 levETIRAcetam (KEPPRA) 500 MG tablet Take 1,500 mg by mouth 2 times daily Activ e meclizine (ANTIVERT) 12.5 MG tablet Take 12.5 mg by mouth 3 times daily as needed Active hydrOXYzine (VISTARIL) 50 MG capsule Take 50 mg by mouth 2 times daily Active Melatonin-Pyrid oxine 3-1 MG TABS Take 5 mg by mouth A ctive NALOXONE HCL IJ 2 mg Acti ve folic acid (FOLVITE) 400 MCG tablet Take 400 mcg by mouth daily Active prochlorperazin e (COMPAZINE) 25 MG suppository prochlorperazine 25 mg rectal suppository 07/23/19 19 Active topiramate (TOPAMAX) 25 MG tablet 25 mg nightly 12/01/19 19 Active traZODone (DESYREL) 50 MG tablet 50 mg nightly as needed for Sleep 11/24/19 19 Active DULoxetine (CYMBALTA) 30 MG extended release capsule Take 30 mg by mouth 01/05 19 Active Multiple Vitamins-Minera ls (MULTIVITAMIN ADULT PO) Take 1 tablet by mouth 10/09/19 19 Active loperamide (IMODIUM) 2 MG capsule Take 2 mg by mouth 4 times daily as needed for Diarrhea Activ e nicotine ([employer] NICOTINE) 21 MG/24HR Place 1 patch onto the skin every 24 hours Active Cholecalciferol (VITAMIN D3) 1.25 MG (74540 UT) CAPS Take 1 tablet by mouth daily Active zinc 50 MG CAPS Take 1 tablet by mouth daily Active albuterol sulfate HFA (VENTOLIN HFA) 108 (90 Base) MCG/ACT inhaler Ventolin HFA 90 mcg/actuation aerosol inhaler 04/14/19 13 Active ammonium lactate (AMLACTIN) 12 % cream ammonium lactate 12 % topical cream Apply 1 application twice a day by topical route. Active diphenhydrAMINE (BANOPHEN) 25 MG tablet Banophen 25 mg tablet TAKE ONE CAPSULE BY MOUTH EVERY 4 HOURS NEEDED Active docusate (COLACE, DULCOLAX) 100 MG CAPS Stool Softener 100 mg capsule TAKE 1 CAPSULE BY MOUTH EVERY DAY Active fenofibrate (TRICOR) 48 MG tablet Take 48 mg by mouth daily Active hydrOXYzine (ATARAX) 25 MG tablet Take 25 mg by mouth every 3 hours as needed Active insulin 70-30 (NOVOLIN 70/30) (70-30) 100 UNIT per ML injection vial Inject into the skin Active LORazepam (ATIVAN) 1 MG tablet Take 1 tablet by mouth 3 times daily as needed. Active potassium chloride (MICRO-K) 10 MEQ extended release capsule Take 10 mEq by mouth daily Active rosuvastatin (CRESTOR) 10 MG tablet rosuvastatin 10 mg tablet 07/04/19 21 Active zinc gluconate 50 MG tablet Take 50 mg by mouth daily Active DULoxetine (CYMBALTA) 30 MG extended release capsule Take 30 mg by mouth daily Active insulin aspart (NOVOLOG FLEXPEN) 100 UNIT/ML injection pen Novolog Flexpen U-100 Insulin aspart 100 unit/mL (3 mL) subcutaneous 01/06/20 19 Active levETIRAcetam (KEPPRA) 750 MG tablet Take 1,500 mg by mouth 2 times daily Activ e meclizine (ANTIVERT) 12.5 MG tablet meclizine 12.5 mg tablet TAKE (1) TABLET THREE TIMES DAILY NEEDED. 07/16/19 19 Active pregabalin (LYRICA) 150 MG capsule pregabalin 150 mg capsule Active oxyCODONE (ROXICODONE) 5 MG immediate release tablet Take 10 mg by mouth every 4 hours as needed for Pain. Per pt, did not see in med recon list, but did see other pain meds Active Active Problems Problem Noted Date Diagnosed Date SBO (small bowel obstruction) 04/29/2020 Chronic narcotic dependence 08/11/2018 Headache, cluster, intractable 08/08/2018 Seizures 07/10/2018 Intractable vomiting with nausea 07/07/2018 Lactic acidosis 07/07/2018 Metabolic acidosis 07/07/2018 Benign essential hypertension 07/07/2018 History of CVA (cerebrovascular accident) 2018 Type 2 diabetes mellitus 12/19/2010 Overview (11/21/2014): replace inactive diagnosis Tobacco use disorder 12/19/2010 Elevated blood sugar Depressive disorder New persistent daily headache DM (diabetes mellitus), type 2, uncontrolled with complications Dyslipidemia Hepatic steatosis Non-intractable vomiting Chronic anxiety Resolved Problems Problem Noted Date Diagnosed Date Resolved Date Abdominal wall abscess 02/11/201607/07 Immunizations Immunization Administration Dates Next Due Influenza 11/19/2010 Influenza, FLUARIX, FLULAVAL , FLUZONE (age 6 mo+) and AFLURIA, (age 3 y+), Quadv PF, 0.5mL 05/01/2020(Deferred: - patient took medication in December) Pneumococcal, PPSV23, PNEUMO VAX 23, (age 2y+), SC/IM, 0.5mL 12/19/2009 Family History Medical History Relation Name Comments Heart Disease Father Heart Disease Maternal Grandmother Relation Name Status Comments Father Maternal Grandmother Social History Tobacco Use Types Packs/Day Years Used Date Smoking Tobacco: Every Day Cigarettes 1 26 Smokeless Tobacco: Never Tobacco Cessation:Ready to Q uit: No; Counseling Given: Yes Alcohol Use Standard Drinks/Week Comments Not Currently 0 (1 standard drink = 0.6 oz pur e alcohol) occ Sex and Gender Information Value Date Recorded Sex Assigned at Not on file Legal Sex Male 5:54 PM EST Gender Identity Not on file Sexual Orientation Not on file Last Filed Vital Signs Vital Sign Reading Time Taken Comments Blood Pressure 118/74 08/20/2020 9:16 AM EDT Pulse 78 08/20/2020 9:16 AM EDT Temperature 36.8 C (98.3 F) 08/20/2020 9:16 AM EDT Respiratory Rate 18 08/20/2020 9:16 AM EDT 9 9% RA Oxygen Saturation 97% 08/20/2020 9:00 AM EDT Inhaled Oxygen Concentration - - Weight 99.8 kg (220 lb) 08/19/2020 9:22 PM EDT Height 185.4 cm (6' 1 ) 08/19/2020 9:22 PM EDT Body Mass Index 29.03 08/19/2020 9:22 PM EDT Plan of Treatment Not on file [place] Advance Directives * Full Code (Latest Code Status on File) Date Activated Date Inactivated Comments 04/29/2020 6:50 PM 05/01/2020 6:05 PM * Full Code Date Activated Date Inactivated Comments 07/07/2018 2:42 PM 07/09/2018 7:33 PM * Full Code Date Activated Date Inactivated Comments 02/10/2016 11:23 PM 02/13/2016 5:30 PM Healthcare Agents on File Name Relationship Healthcare Agent Relationshi p Communication Gemma Hernandez Spouse Primary Decision Maker Care Teams Strike On Machine Operator Relationship Specialty Start Date End Date Carli Samayoa APRN - APPLIANCE TECHNICIAN [address] [id number] PCP - General Nurse Practitioner 04/16/20
--- OUTSIDE RECORDS SUMMARY | 2024-09-08 21:25 | XMS_ITS | Referral Summary ---
Author Organization [facility] Address [facility] [place] [address] Care Team Providers Care Family Consultant Name Role Phone Pcp, None MD Primary Care Provider [phone] Allergies Active Allergy Reactions Criticality Noted Date [...] by mouth daily. 7 tablet 8 Active Pfuhpxkyjh-YS-I angela Polysacch (ALCORTIN A) 1-2-1 % GEL Apply topically daily. 48 g 5 8 Active atorvastatin (LIPITOR) 80 MG TABS Take 1 tablet by mouth daily. 90 tablet 1 9 Active vitamin D-2 (ERGOCALCIFEROL ) 20508 UNIT CAPS Take 1 capsule by mouth [...] 05/29/2018 9:54 AM EDT Plan of Treatment Not on file Care Teams Family Consultant Relationship Specialty Start Date End Date Pcp, Trice, PCP - General Internal Medicine 07/14/18
--- OUTSIDE RECORDS SUMMARY | 2024-09-08 21:25 | XMS_ITS | Encounter Summary ---
Author Organization Healthcare Address [address] [place] [address] Care Team Providers Care Drier And Pulverizer Tender Name Role Phone Shamika Roy APRN Primary Care Provider [phone] Encounter Details Date Type Department Care Team ([facility] st Contact Info) Description 05/22/2023 Orders Only External Location [address] [place] [address] Provider, External Social History Tobacco Use Types [...] Procedure Name Priority Date/Time Associated Diagnosis Comments XR MSK OUTSIDE IMAGES 05/22/2023 3:40 PM EST documented in this encounter Results * XR MSK OUTSIDE IMAGES (05/22/2023 3:40 PM EST) Anatomical Region Laterality Modality Radiographic Sulema ging 05/22/2023 3:40 PM EST us External Provider IMG XR PROCEDURES Final Result documented in this encounter Visit Diagnoses Not on filedocumented in this encounter Care Teams Drier And Pulverizer Tender Relationship Specialty Start Date End Date Shamika Roy APRN [address] [place] [id number] PCP - General 09/08/23 documented as of this encounter
[2024-09-08 21:26] VITALS: BP 113/66; PULSE 81; RESP 11; TEMP 37.3; O2SAT 99
--- OUTSIDE RECORDS SUMMARY | 2024-09-08 21:26 | XMS_ITS | Data Portability ---
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 Prior to initiating the visit, I obtained 2 patient identifiers and the patient's informed verbal consent to perform this visit using the telephone and answered all the questions the patient had about the telephone interaction. Not available 01/30/2021 17:10:17 07/26/2021 07/26/2021 Patient presented for medication refill. Patient tolerating medication well at current dose without adverse effects. Refilled as below. Discussed plan with patient, who expressed understanding. Follow up as noted below. I performed this visit using the telephone with no visual of the patient. Prior to initiating the visit, I obtained 2 patient identifiers and the patient's informed verbal consent to perform this visit using the telephone and answered all the questions the patient had about the telephone interaction. Not available 07/26/2021 08:33:11 08/09/2022 08/09/2022 . [email or web address] Not available 07/16 14:43:14 Plan of Treatment Reminders Order Date Submit Date Provider Last Modified By Organization Details Last Modified Time Details Appointments None recorded. Lab rapid strep group A, throat 2021 022 [place], [address], [place], [address], 11:33:19 lipid panel, serum 2021 022 [email or web address] [facility] (Registration ), [address] [place], [address], 2 12:27:40 HbA1c (hemoglobin A1c), blood 2021 022 [email or web address] [facility] (Registration ), [address] [place], [address], 2 12:25:58 CMP, serum or plasma 2021 022 [email or web address] [facility] (Registration ), [address] [facility] [place], [address], 12:27:11 rapid SARS CoV 2 Ag, QL IA, respiratory specimen [address], [address], [place], [address], 11:33:19 rapid flu (A+B) [address], [address], [place], [address], 11:33:19 lipid panel, serum 2021 022 [email or web address] [facility] (Registration ), [address] [place], [address], 2 15:25:09 HbA1c (hemoglobin A1c), blood 2021 022 [email or web address] [facility] (Registration ), [address] [place], [address], 15:23:16 CMP, serum or plasma 2021 022 [email or web address] [facility] (Registration ), [address] [place], [address], 2 15:24:23 microalbumi n/creatinin e, mass ratio, urine 2021 022 [email or web address] [facility] (Registration ), [address] [place] [address] [place], [address], 2 15:26:02 CBC w/ diff 2021 022 [email or web address] [facility] (Registration ), [address] [place] [address] [place], [address], 2 15:24:44 lipid panel, serum 2021 022 [email or web address] 0 [facility] (Registration ), [address] [place] [address] [place], [address], 2 11:09:52 HbA1c (hemoglobin A1c), blood 2021 022 [email or web address] 0 [facility] (Registration ), [address] [place] [address] [place], [address], 2 11:09:52 CMP, serum or plasma 2021 022 [email or web address] [facility] (Registration ), [address] [place] [address] [place], [address], 2 11:09:52 CBC w/ auto diff 2021 022 [email or web address] 0 [facility] (Registration ), [address] [place] [address] [place], [address], 2 11:09:52 TSH, serum or plasma 2021 022 [email or web address] [facility] (Registration ), [address] [place] [address] [place], [address], 2 11:09:53 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 Surgeries None recorded. Imaging None recorded. Medication Orders amoxicillin 500 mg capsule [email or web address] [facility], [address] [place] [address], [address], 3 14:26:47 Tylenol 325 mg tablet 2021 022 [facility], [address] [place] [address], [address], 2 14:52:10 baclofen 10 mg tablet 2021 022 [facility], [address] [place] [address], [address], 2 14:52:13 baclofen 10 mg tablet 2021 022 [facility], [facility] [place], [address], 2 09:06:52 Novolog U-100 Insulin aspart 100 unit/mL subcutaneou s solution 2021 [facility], [facility] [place], [address], 2 09:06:53 BD Alcohol Swabs 2021 022 [facility], [address] [place] [address], [address], 09:06:52 rosuvastati n 10 mg tablet 2020 021 [facility], [address] [place] [address], [address], 16:17:04 losartan 50 mg tablet 2020 021 [facility], [address] [place] [address], [address], 15:22:32 hydroxyzine HCl 25 mg tablet [email or web address] [place] [address] Pharmacy, [address] [place] [address], [address], 14:28:23 Patient TargetsNo targets recorded. Patient Instructions Encounter Date Encounter Id Patient Instructions Last Modified By Organization Details Last Modified Time 01/31/2021 [id number] high blood pressure: care instructions Not available 01/31/2021 15:20:37 learning about high blood pressure Not available 01/31/2021 15:20:37 Take medications as directed Eat low carb heart healthy diet Exercise 30 min a day, 3-5 days a week Weight loss 1-2 lb per week Continue to monitor bp daily and bring results to next appt for review F/U in 3 months or PRN Not available 01/31/2021 23:26:29 07/26/2021 [id number] Take medications as directed Eat low carb heart healthy/diabetic diet Exercise 30 min a day, 3-5 days a week Weight loss 1-2 lb per week Continue to monitor glucose and bp daily and bring results to next appt for review Obtain testing when fasting, will call with abnormal results F/U in 3 months or PRN Not available 07/26/2021 14:00:50 09/10/2021 [id number] headache: care instructions Not available 09/10/2021 14:52:06 type 2 diabetes: care instructions Not available 09/10/2021 14:52:06 high blood pressure: care instructions Not available 09/10/2021 14:52:05 learning about high blood pressure Not available 09/10/2021 14:52:05 Take medications as directed Eat low carb heart healthy/diabetic diet Exercise 30 min a day, 3-5 days a week Weight loss 1-2 lb per week Continue to monitor glucose daily and bring results to next appt for review Obtain labs in office today, will call with abnormal results F/U in 3 months or PRN Not available 09/10/2021 14:54:48 03/12/2022 [id number] strep throat: care instructions Not available 03/12/2022 11:33:19 type 2 diabetes: care instructions Not available 03/12/2022 11:33:19 Take medications as directed Use OTC medications for fever/pain, take as directed Rest, hydration, hand hygiene Diabetic diet, exercise, weight loss. continue monitoring of glucose daily, bring log to next appt for review. 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 1 Not Available [facility] (Pre Certs ) [address] [place], [address], 01/12/2021 23:52:59 01/13/20 21 01/12/2021 BASIC METAB OLIC PANEL chloride 104 mmol/ L 98-107 Not Available [facility] (Pre Certs ) [address] [place], [address], 01/12/2021 23:52:59 01/13/20 21 01/12/2021 BASIC METAB OLIC PANEL carbon dioxide 21 mmol/ L 22-30 low Not Available [facility] (Pre Certs ) [address] [place], [address], 01/12/2021 23:52:59 01/13/20 21 01/12/2021 BASIC METAB OLIC PANEL BUN 11 mg/dL 9-20 Not Available [facility] (Pre Certs ) [address] [place], [address], 01/12/2021 23:52:59 01/13/20 21 01/12/2021 BASIC METAB OLIC PANEL creatinine 0.9 mg/dL 0.66-1 .25 Not Available [facility] (Pre [facility] ) [address] [place], [address], 01/12/2021 23:52:59 01/13/20 21 01/12/2021 BASIC METAB OLIC PANEL glucose 321 mg/dL 74-100 high Not Available [facility] (Pre Certs ) [address] [place], [address], 01/12/2021 23:52:59 01/13/20 21 01/12/2021 BASIC METAB OLIC PANEL calcium 9.1 mg/dL 8.6-10 .3 Not Available [facility] (Pre Cert ) [address] [place], [address], 01/12/2021 23:52:59 01/13/20 21 01/12/2021 BASIC METAB OLIC PANEL anion gap 15.8 mmol/ L 8-16 Not Available [facility] (Pre Certs ) [address] [place], [address], 01/12/2021 23:52:59 01/13/20 21 01/12/2021 BASIC METAB OLIC PANEL estimated GFR 90 < 90 mL/mi n/1.7 3 sq m MAY BE INDIC ATIVE OF DECLI MARYBEL KIDNE Y FUNCT ION. * GFR IS ESTIM ATED USING CREAT ININE , AGE, GENDE R AND RACE. PATIE NT'S VALUE S SHOUL D BE INTER PRETE D A TREND . ESTIM ATED GFR VALUE S ARE NOT ACCUR ATE IN: OBESE (BMI >34) OR UNDER WEIGH T (BMI <20) PEOPL E, THE VERY OLD OR VERY YOUNG , RACES OTHER THAN [place] TAB OR AFRIC AN AMERI CAN, AND PEOPL E WITH ACUTE KIDNE Y FAILU RE, ACUTE ILLNE SSES, OR AMPUT ATION S. BETWE EN 30-60 mL/mi n/1.7 3 sq m, CLINI DAE CORRE LATIO N IS NEEDE D. Not Available [facility] (Pre Certs ) [address], [address], 01/12/2021 23:52:59 09/11/19 22 09/10/2021 COMPR EHENS THERESA MET MS sodium 142 mmol/ L 137-14 5 Not Available [facility] (Pre Certs ) [address] [place], [address], 09/10/2021 22:09:47 09/11/19 22 09/10/2021 COMPR EHENS THERESA MET MS potassium 4.2 mmol/ L 3.4-5. 1 Not Available [facility] (Pre Certs ) [address] [place], [address], 09/10/2021 22:09:47 09/11/19 22 09/10/2021 COMPR EHENS THERESA MET MS chloride 110 mmol/ L 98-107 high Not Available [facility] (Pre Certs ) [address] [place], [address], 09/10/2021 22:09:47 09/11/19 22 09/10/2021 COMPR EHENS THERESA MET MS carbon dioxide 20 mmol/ L 22-30 low Not Available [facility] (Pre [facility] ) [address] [place], [address], 09/10/2021 22:09:47 09/11/19 22 09/10/2021 COMPR EHENS THERESA MET MS BUN 10 mg/dL 9-20 Not Available [facility] (Pre Certs ) [address] [place], [address], 09/10/2021 22:09:47 09/11/19 22 09/10/2021 COMPR EHENS THERESA MET MS creatinine 0.7 mg/dL 0.66-1 .25 Not Available [facility] (Pre [facility] ) [address] [place], [address], 09/10/2021 22:09:47 09/11/19 22 09/10/2021 COMPR EHENS THERESA MET MS glucose 161 mg/dL 74-100 high Not Available [facility] (Pre Cert ) [address] [place], [address], 09/10/2021 22:09:47 09/11/19 22 09/10/2021 COMPR EHENS THERESA MET MS calcium 9.4 mg/dL 8.6-10 .3 Not Available [facility] (Pre Certs ) [address] [place], [address], 09/10/2021 22:09:47 09/11/19 22 09/10/2021 COMPR EHENS THERESA MET MS total protein 7.6 g/dL 6.3-8. 2 Not Available [facility] (Pre Certs ) [address] [place], [address], 09/10/2021 22:09:47 09/11/19 22 09/10/2021 COMPR EHENS THERESA MET MS albumin 4.6 g/dL 3.5-5. 0 Not Available [facility] (Pre Certs ) [address] [place], [address], 09/10/2021 22:09:47 09/11/19 22 09/10/2021 COMPR EHENS THERESA MET MS globulin 3.0 g/dL 2.0-3. 5 Not Available [facility] (Pre Certs ) [address] [place], [address], 09/10/2021 22:09:47 09/11/19 22 09/10/2021 COMPR EHENS THERESA MET MS A/G ratio 1.5 g/dL 1.0-2. 5 Not Available [facility] (Pre Certs ) [address] [place], [address], 09/10/2021 22:09:47 09/11/19 22 09/10/2021 COMPR EHENS THERESA MET MS total bilirubin 0.6 mg/dL 0.2-1. 3 Not Available [facility] (Pre Certs ) [address] [place], [address], 09/10/2021 22:09:47 09/11/19 22 09/10/2021 COMPR EHENS THERESA MET MS aspartate aminotransfe rase 32 U/L 17-59 Not Available [facility] (Pre Certs ) [address] [place], [address], 09/10/2021 22:09:47 09/11/19 22 09/10/2021 COMPR EHENS THERESA MET MS alanine aminotransfe rase 20 U/L 0-49 Not Available [facility] (Pre Certs ) [address] [place], [address], 09/10/2021 22:09:47 09/11/19 22 09/10/2021 COMPR EHENS THERESA MET MS alkaline phosphatase 91 U/L 38-126 Not Available [facility] (Pre Certs ) [address] [facility] [place], [address], 09/10/2021 22:09:47 09/11/19 22 09/10/2021 COMPR EHENS THERESA MET MS anion gap 16.2 mmol/ L 8-16 high Not Available [facility] (Pre Certs ) [address] [facility] [place], [address], 09/10/2021 22:09:47 09/11/19 22 09/10/2021 COMPR EHENS THERESA MET MS estimated GFR 121 < 90 mL/mi n/1.7 3 sq m MAY BE INDIC ATIVE OF DECLI MARYBEL KIDNE Y FUNCT ION. * GFR IS ESTIM ATED USING CREAT ININE , AGE, GENDE R AND RACE. PATIE NT'S VALUE S SHOUL D BE INTER PRETE D A TREND . ESTIM ATED GFR VALUE S ARE NOT ACCUR ATE IN: OBESE (BMI >34) OR UNDER WEIGH T (BMI <20) PEOPL E, THE VERY OLD OR VERY YOUNG , RACES OTHER THAN [place]UCA TAB OR AFRIC AN AMERI CAN, AND PEOPL E WITH ACUTE KIDNE Y FAILU RE, ACUTE ILLNE SSES, OR AMPUT ATION S. BETWE EN 30-60 mL/mi n/1.7 3 sq m, CLINI DAE CORRE LATIO N IS NEEDE D. Not Available [facility] (Pre Certs ) [address] [facility] [place], [address], 09/10/2021 22:09:47 09/11/19 22 09/10/2021 LIPID PROFI LE cholesterol 96 mg/dL 0-200 Not Available [facility] (Pre Certs ) [address] [facility] [place], [address], 09/10/2021 22:09:49 09/11/19 22 09/10/2021 LIPID PROFI LE triglyceride 172 mg/dL 0-149 high Not Available [facility] (Pre Certs ) [address] [place], [address], 09/10/2021 22:09:49 09/11/19 22 09/10/2021 LIPID PROFI LE high density lipoprotein 31 mg/dL 40-59 low HDL: HDL < 40 MG/DL = MAJOR RISK FACTO R FOR CAD. HDL >= 60 MG/DL = NEGAT THERESA RISK FACTO R FOR CAD. Not Available [facility] (Pre Certs ) [address] [facility] [place], [address], 09/10/2021 22:09:49 09/11/19 22 09/10/2021 LIPID PROFI LE low density lipoprotein 30.6 mg/dL less than-1 00 LDL: OPTIM AL: <100 MG/DL LOW RISK: 100-1 29 MG/DL MODER ATE RISK: 130-1 59 MG/DL HIGH RISK: 160-1 89 MG/DL VERY HIGH RISK: =/>19 0 MG/DL THIS IS A CALCU LATED LDL RESUL T. ATP-I II GUIDE LINES RECOM MEND THE DIREC T LDL METHO D. Not Available [facility] (Pre Certs ) [address] [place], [address], 09/10/2021 22:09:49 09/11/19 22 09/10/2021 LIPID PROFI LE very low density lipoprotein 34.4 mg/dL 10-50 Not Available [facility] (Pre Certs ) [address] [place], [address], 09/10/2021 22:09:49 09/11/19 22 09/10/2021 LIPID PROFI LE LDL/HDL ratio 1.0 Not Available [facility] (Pre Certs ) [address] [place], [address], 09/10/2021 22:09:49 09/11/19 22 09/10/2021 MICRO ALBUM IN/CR EATIN INE RATIO microalbumin , random 400.9 mg/L less than-1 6.7 high MICRO ALBUM IN EXCRE TION RATE IS ONLY AVAIL ABLE ON 24 HR COLLE CTION S. Not Available [facility] (Pre Certs ) [address] [place], [address], 09/10/2021 23:45:26 09/11/19 22 09/10/2021 MICRO ALBUM IN/CR EATIN INE RATIO creatinine, urine, random 340.9 mg/dL 22-328 high Not Available [facility] (Pre Certs ) [address], [address], 09/10/2021 23:45:26 09/11/19 22 09/10/2021 MICRO ALBUM IN/CR EATIN INE RATIO microalbumin /creatinine ratio 117.6 mg/g less than-3 0 high Not Available [facility] (Pre Certs ) [address] [place], [address], 09/10/2021 23:45:26 09/11/19 22 09/10/2021 HEMOG LOBIN A1C WITH EAG hemoglobin A1C 8.7 % 0.0-5. 6 high GLYCO HEMOG LOBIN : DIABE TIC: >/= 6.5 % PREDI ABETI C: 5.7-6 .4 % GOAL FOR THERA PY FOR DIABE TIC CONTR OL: < 7.0 % Not Available [facility] (Pre Certs ) [address] [place], [address], 09/10/2021 23:43:11 09/11/19 22 09/10/2021 HEMOG LOBIN A1C WITH EAG estimated average glucose 203 mg/dL 74-100 high Not Available [facility] (Pre Certs ) [address] [place], [address], 09/10/2021 23:43:11 09/11/19 22 09/11/2021 CBC WITH AUTO DIFF WBC 15.5 x1000 5.4-9. 9 high Not Available [facility] (Pre [facility] ) [address] [place], [address], 09/11/2021 00:21:42 09/11/19 22 09/11/2021 CBC WITH AUTO DIFF RBC 4.98 x1000 000 4.16-5 .62 Not Available [facility] (Pre [facility] ) [address], [address], 09/11/2021 00:21:42 09/11/19 22 09/11/2021 CBC WITH AUTO DIFF hemoglobin 13.9 g/dL 13.2-1 6.5 Not Available [facility] ([facility] ) [address] [place], [address], 09/11/2021 00:21:42 09/11/19 22 09/11/2021 CBC WITH AUTO DIFF hematocrit 42.5 % 37.4-5 3.8 Not Available [facility] ([facility] ) [address], [address], 09/11/2021 00:21:42 09/11/19 22 09/11/2021 CBC WITH AUTO DIFF MCV 85.3 fL 80.5-9 6.9 Not Available [facility] ([facility] ) [address], [address], 09/11/2021 00:21:42 09/11/19 22 09/11/2021 CBC WITH AUTO DIFF MCH 27.9 pg 27.7-3 3.3 Not Available [facility] ([facility] ) [address] [place], [address], 09/11/2021 00:21:42 09/11/19 22 09/11/2021 CBC WITH AUTO DIFF MCHC 32.7 g/dL 32.8-3 5.0 low Not Available [facility] ([facility] ) [address] [place], [address], 09/11/2021 00:21:42 09/11/19 22 09/11/2021 CBC WITH AUTO DIFF RDW 13.9 % 11.6-1 4.8 Not Available [facility] ([facility] ) [address] [facility] [place], [address], 09/11/2021 00:21:42 09/11/19 22 09/11/2021 CBC WITH AUTO DIFF platelet count 238 x1000 129-33 2 Not Available [facility] ([facility] ) [address] [facility] [place], [address], 09/11/2021 00:21:42 09/11/19 22 09/11/2021 CBC WITH AUTO DIFF neutroph 64.5 % 40-70 Not Available [facility] ([facility] ) [address] [facility] [place], [address], 09/11/2021 00:21:42 09/11/19 22 09/11/2021 CBC WITH AUTO DIFF lymph% 25.0 % 15-45 Not Available [facility] ([facility] ) [address] [facility] [place], [address], 09/11/2021 00:21:42 09/11/19 22 09/11/2021 CBC WITH AUTO DIFF mono% 7.1 % 0-12 Not Available [facility] ([facility] ) [address] [facility] [place], [address], 09/11/2021 00:21:42 09/11/19 22 09/11/2021 CBC WITH AUTO DIFF eos% 2.4 % 0-5 Not Available [facility] ([facility] ) [address] [facility] [place], [address], 09/11/2021 00:21:42 09/11/19 22 09/11/2021 CBC WITH AUTO DIFF baso% 0.5 % 0-1 Not Available [facility] ([facility] ) [address] [facility] [place], [address], 09/11/2021 00:21:42 09/11/19 22 09/11/2021 CBC WITH AUTO DIFF Ig% 0.5 % 0.0-0. 5 NEW IMMAT URE GRANU LOCYT E REFER ENCE RANGE EFFEC TIVE 03/12. Not Available [facility] (Pre Certs ) [address] [facility] [place], [address], 09/11/2021 00:21:42 09/11/19 22 09/11/2021 CBC WITH AUTO DIFF absolute neutrophil count 10.0 x(10) 3/uL 1.8-7. 2 high INFAN TS NEUTR OPENI A: <0.25 x(10) 3/uL ADULT S MILD NEUTR OPENI A: 1.00- 1.80 x(10) 3/uL MODER ATE NEUTR OPENI A: 0.50- 1.0 x(10) 3/uL SEVER E NEUTR OPENI A: <0.50 x(10) 3/uL NEW ABSOL [place] NEUTR OPHIL REFER ENCE RANGE EFFEC TIVE 03/12. Not Available [facility] (Pre Certs ) [address] [place], [address], 09/11/2021 00:21:42 09/11/19 22 09/11/2021 CBC WITH AUTO DIFF absolute lymphocyte count 3.9 x(10) 3/uL 1.1-2. 7 high NEW ABSOL [place] LYMPH OCYTE REFER ENCE RANGE EFFEC TIVE 03/12. Not Available [facility] (Pre Certs ) [address] [facility] [place], [address], 09/11/2021 00:21:42 09/11/19 22 09/11/2021 CBC WITH AUTO DIFF plt est NORMAL Not Available [facility] (Pre Certs ) [address] [place], [address], 09/11/2021 00:21:42 09/11/19 22 09/11/2021 CBC WITH AUTO DIFF rbcmorph NORMAL Not Available [facility] (Pre Certs ) [address] [place], [address], 09/11/2021 00:21:42 09/11/19 22 09/10/2021 LIPID PROFI LE cholesterol 96 mg/dL 0-200 Not Available [facility] (Pre Certs ) [address] [facility] [place], [address], 09/20/2021 09:17:15 09/11/19 22 09/10/2021 LIPID PROFI LE triglyceride 172 mg/dL 0-149 high Not Available [facility] (Pre Certs ) [address] [facility] [place], [address], 09/20/2021 09:17:15 09/11/19 22 09/10/2021 LIPID PROFI LE high density lipoprotein 31 mg/dL 40-59 low HDL: HDL < 40 MG/DL = MAJOR RISK FACTO R FOR CAD. HDL >= 60 MG/DL = NEGAT THERESA RISK FACTO R FOR CAD. Not Available [facility] (Pre Certs ) [address] [place], [address], 09/20/2021 09:17:15 09/11/19 22 09/10/2021 LIPID PROFI LE low density lipoprotein 30.6 mg/dL less than-1 00 LDL: OPTIM AL: <100 MG/DL LOW RISK: 100-1 29 MG/DL MODER ATE RISK: 130-1 59 MG/DL HIGH RISK: 160-1 89 MG/DL VERY HIGH RISK: =/>19 0 MG/DL THIS IS A CALCU LATED LDL RESUL T. ATP-I II GUIDE LINES RECOM MEND THE DIREC T LDL METHO D. Not Available [facility] (Pre Certs ) [address] [facility] [place], [address], 09/20/2021 09:17:15 09/11/19 22 09/10/2021 LIPID PROFI LE very low density lipoprotein 34.4 mg/dL 10-50 Not Available [facility] (Pre Certs ) [address] [facility] [place], [address], 09/20/2021 09:17:15 09/11/19 22 09/10/2021 LIPID PROFI LE LDL/HDL ratio 1.0 Not Available [facility] (Pre Certs ) [address] [place], [address], 09/20/2021 09:17:15 03/12/20 22 03/12/2022 HEMOG LOBIN A1C WITH EAG hemoglobin A1C 8.8 % 0.0-5. 6 high GLYCO HEMOG LOBIN : DIABE TIC: >/= 6.5 % PREDI ABETI C: 5.7-6 .4 % GOAL FOR THERA PY FOR DIABE TIC CONTR OL: < 7.0 % Not Available [facility] (Pre Certs ) [address] [place], [address], 03/12/2022 13:50:21 03/12/20 22 03/12/2022 HEMOG LOBIN A1C WITH EAG estimated average glucose 206 mg/dL 74-100 high Not Available [facility] (Pre Certs ) [address] [place], [address], 03/12/2022 13:50:21 03/12/20 22 03/12/2022 COMPR EHENS THERESA MET MS sodium 141 mmol/ L 137-14 5 Not Available [facility] (Pre Certs ) [address] [place], [address], 03/12/2022 13:57:52 03/12/20 22 03/12/2022 COMPR EHENS THERESA MET MS potassium 4.1 mmol/ L 3.4-5. 1 Not Available [facility] (Pre Certs ) [address] [place], [address], 03/12/2022 13:57:52 03/12/20 22 03/12/2022 COMPR EHENS THERESA MET MS chloride 106 mmol/ L 98-107 Not Available [facility] (Pre Certs ) [address] [place], [address], 03/12/2022 13:57:52 03/12/20 22 03/12/2022 COMPR EHENS THERESA MET MS carbon dioxide 23 mmol/ L 22-30 Not Available [facility] (Pre Certs ) [address] [place], [address], 03/12/2022 13:57:52 03/12/20 22 03/12/2022 COMPR EHENS THERESA MET MS BUN 17 mg/dL 9-20 Not Available [facility] ([facility] ) [address] [place], [address], 03/12/2022 13:57:52 03/12/20 22 03/12/2022 COMPR EHENS THERESA MET MS creatinine 1.1 mg/dL 0.66-1 .25 Not Available [facility] ([facility] ) [address] [place], [address], 03/12/2022 13:57:52 03/12/20 22 03/12/2022 COMPR EHENS THERESA MET MS glucose 222 mg/dL 74-100 high Not Available [facility] ([facility] ) [address] [place], [address], 03/12/2022 13:57:52 03/12/20 22 03/12/2022 COMPR EHENS THERESA MET MS calcium 9.8 mg/dL 8.6-10 .3 Not Available [facility] ([facility] ) [address] [place], [address], 03/12/2022 13:57:52 03/12/20 22 03/12/2022 COMPR EHENS THERESA MET MS total protein 7.8 g/dL 6.3-8. 2 Not Available [facility] ([facility] ) [address] [place], [address], 03/12/2022 13:57:52 03/12/20 22 03/12/2022 COMPR EHENS THERESA MET MS albumin 4.7 g/dL 3.5-5. 0 Not Available [facility] (Pre [facility] ) [address] [place], [address], 03/12/2022 13:57:52 03/12/20 22 03/12/2022 COMPR EHENS THERESA MET MS globulin 3.1 g/dL 2.0-3. 5 Not Available [facility] (Pre [facility] ) [address] [place], [address], 03/12/2022 13:57:52 03/12/20 22 03/12/2022 COMPR EHENS THERESA MET MS A/G ratio 1.5 g/dL 1.0-2. 5 Not Available [facility] (Pre [facility] ) [address] [place], [address], 03/12/2022 13:57:52 03/12/20 22 03/12/2022 COMPR EHENS THERESA MET MS total bilirubin 0.6 mg/dL 0.2-1. 3 Not Available [facility] (Pre [facility] ) [address] [place], [address], 03/12/2022 13:57:52 03/12/20 22 03/12/2022 COMPR EHENS THERESA MET MS aspartate aminotransfe rase 41 U/L 17-59 Not Available [facility] (Pre [facility] ) [address] [place], [address], 03/12/2022 13:57:52 03/12/20 22 03/12/2022 COMPR EHENS THERESA MET MS alanine aminotransfe rase 29 U/L 0-49 Not Available [facility] (Pre [facility] ) [address] [place], [address], 03/12/2022 13:57:52 03/12/20 22 03/12/2022 COMPR EHENS THERESA MET MS alkaline phosphatase 79 U/L 38-126 Not Available [facility] (Pre Certs ) [address] [place], [address], 03/12/2022 13:57:52 03/12/20 22 03/12/2022 COMPR EHENS THERESA MET MS anion gap 16.1 mmol/ L 8-16 high Not Available [facility] (Pre Certs ) [address] [facility] [place], [address], 03/12/2022 13:57:52 03/12/20 22 03/12/2022 COMPR EHENS THERESA MET MS estimated GFR 71 < 90 mL/mi n/1.7 3 sq m MAY BE INDIC ATIVE OF DECLI MARYBEL KIDNE Y FUNCT ION. * GFR IS ESTIM ATED USING CREAT ININE , AGE, GENDE R AND RACE. PATIE NT'S VALUE S SHOUL D BE INTER PRETE D A TREND . ESTIM ATED GFR VALUE S ARE NOT ACCUR ATE IN: OBESE (BMI >34) OR UNDER WEIGH T (BMI <20) PEOPL E, THE VERY OLD OR VERY YOUNG , RACES OTHER THAN CAUCA TAB OR AFRIC AN AMERI CAN, AND PEOPL E WITH ACUTE KIDNE Y FAILU RE, ACUTE ILLNE SSES, OR AMPUT ATION S. BETWE EN 30-60 mL/mi n/1.7 3 sq m, CLINI DAE CORRE LATIO N IS NEEDE D. Not Available [facility] (Pre [facility] ) [address] [facility] [place], [address], 03/12/2022 13:57:52 03/12/20 22 03/12/2022 LIPID PROFI LE cholesterol 88 mg/dL 0-200 Not Available [facility] (Pre [facility] ) [address] [place], [address], 03/12/2022 13:58:08 03/12/20 22 03/12/2022 LIPID PROFI LE triglyceride 275 mg/dL 0-149 high Not Available [facility] (Pre [facility] ) [address] [place], [address], 03/12/2022 13:58:08 03/12/20 22 03/12/2022 LIPID PROFI LE high density lipoprotein 26 mg/dL 40-59 low HDL: HDL < 40 MG/DL = MAJOR RISK FACTO R FOR CAD. HDL >= 60 MG/DL = NEGAT THERESA RISK FACTO R FOR CAD. Not Available [facility] (Pre [facility] ) [address] [place], [address], 03/12/2022 13:58:08 03/12/20 22 03/12/2022 LIPID PROFI LE low density lipoprotein 7.0 mg/dL less than-1 00 LDL: OPTIM AL: <100 MG/DL LOW RISK: 100-1 29 MG/DL MODER ATE RISK: 130-1 59 MG/DL HIGH RISK: 160-1 89 MG/DL VERY HIGH RISK: =/>19 0 MG/DL THIS IS A CALCU LATED LDL RESUL T. ATP-I II GUIDE LINES RECOM MEND THE DIREC T LDL METHO D. Not Available [facility] (Pre [facility] ) [address] [place], [address], 03/12/2022 13:58:08 03/12/20 22 03/12/2022 LIPID PROFI LE very low density lipoprotein 55.0 mg/dL 10-50 high Not Available [facility] (Pre Certs ) [address] [place], [address], 03/12/2022 13:58:08 03/12/20 22 03/12/2022 LIPID PROFI LE LDL/HDL ratio 0.3 Not Available [facility] (Pre [facility] ) [address] [place], [address], 03/12/2022 13:58:08 03/12/20 22 03/12/2022 rapid flu (A+B) Flu negati ve Not Available [place] [address], [place], [address], 03/12/2022 11:26:31 03/12/20 22 03/12/2022 rapid SARS CoV 2 Ag, QL IA, respi rator y speci men Rapid COVID-19 negati ve Not Available [place] [id number] [place] [address] [address], [place], [address], 03/12/2022 11:25:21 03/12/20 22 03/12/2022 rapid strep group A, throa t Strep negati ve Not Available [place] [address] [facility] [address], [place], [address], 03/12/2022 11:24:06 Result Notes None recorded. Problems Name Problem SNOMED Code Status Onset Date Resolution Date Notes Provider Name and Address Organization Details Recorded Time Diarrhea 38443810 Completed 201708/09/2022 Karissa Infante NP [address] [place] [address] [place], [address], [facility] 3 14:27:44 Nausea 613064900 Completed 201703/05/2021 Karissa Henry NP [address] [place] [address] [place], [address], [facility] 1 14:28:54 Vomiting 988464876 Completed 201707/26/2021 Karissa Henry NP [address] [place] [address] [place], [address], [facility] 2 08:31:57 Abdominal pain 42065156 Completed 201707/26/2021 Karissa Henry NP [address] [place] [address] [place], [address], [facility] 2 08:30:34 Upper respirato ry infection 03407134 Completed 201707/26/2021 Karissa Henry NP [address] [place] [address] [place], [address], [facility] 2 08:31:51 Influenza 5664530 Completed 201703/12/2022 Karissa Henry NP [address] [place] [address] [place], [address], [facility] 2 11:16:58 Type 2 diabetes mellitus without complicat ion 975022044 Completed 201908/09/2022 Karissa Infante NP [address] [place] [address] [place], [address], [facility] 3 14:33:57 Hyperlipi demia 90352721 Completed 201903/05/2021 Karissa Henry NP [address] [place] [address] [place], [address], [facility] 1 14:29:03 Environme ntal allergy 229023506 Active 2019 Karissa Henry [address] [place], [address], [facility] 2 08:31:08 Nausea and vomiting 51774808 Completed 201903/12/2022 Karissa Henry NP [address] [place] [address] [place], [address], [facility] 2 11:17:35 Seizure disorder 725289002 Active 2019 Karissa Henry NP [address] [place] [address] [place], [address], [facility] 2 08:31:39 Gastroeso phageal reflux disease without esophagit is 710877501 Active 2019 Karissa Henry NP [address] [place] [address] [place], [address], [facility] 2 08:31:14 Mixed anxiety and depressiv e disorder 111206627 Active 2019 Karissa Henry NP [address] [place] [address] [place], [address], [facility] 2 08:31:25 Insomnia 450857673 Active 2019 Karissa Henry NP [address] [place] [address] [place], [address], [facility] 2 08:31:21 Essential hypertens ion 07561482 Active 2019 Karissa Henry NP [address] [place] [address] [place], [address], [facility] 2 08:31:10 Dizziness 343312247 Completed 201908/09/2022 Karissa Infante NP [address] [place] [address] [place], [address], [facility] 3 14:27:52 Pruritic disorder 761546230 Completed 201908/09/2022 Karissa Infante NP [address] [place] [address] [place], [address], [facility] 3 14:28:13 Degenerat ion of spine 579531484 Completed 201908/09/2022 Karissa Infante NP [address] [place] [address] [place], [address], [facility] 3 14:27:41 Anxiety 13275011 Completed 201908/09/2022 Karissa Infante NP [address] [place] [address] [place], [address], [facility] 3 14:28:41 Neuropath y due to diabetes mellitus 062564546 Active 2019 Karissa Henry NP [address] [place] [address] [place], [address], [facility] 2 08:31:31 Cervical radiculop athy 81992424 Active 2019 Karissa Henry NP [address] [place] [address] [place], [address], [facility] 2 08:30:52 Hypokalem ia 31402889 Completed 201908/09/2022 Karissa Infante NP [address] [place] [address] [place], [address], [facility] 3 14:27:57 Chronic obstructi ve pulmonary disease 03303869 Active 2019 Karissa Henry NP [address] [place] [address] [place], [address], [facility] 2 08:30:54 Vitamin D deficienc y 39593225 Active 2019 Karissa Henry NP [address] [place] [address] [place], [address], [facility] 2 08:31:54 Spasm 70756874 Completed 202008/09/2022 Karissa Infante NP [address] [place] [address] [place], [address], [facility] 3 14:28:19 Pain of shoulder region 42014048 Completed 202007/26/2021 Karissa Henry NP [address] [place] [address] [place], [address], [facility] 2 08:31:43 Constipat ion 51975136 Completed 202008/09/2022 Karissa Infante NP [address] [place] [address] [place], [address], [facility] 3 14:27:37 Depressiv e disorder 33752978 Active 2020 Karissa Henry NP [address] [place] [address] [place], [address], [facility] 2 08:30:59 Radiculop athy due to lumbar intervert ebral disc disorder 220315037363 105 Active 2020 Karissa Henry NP [address] [place] [address] [place], [address], [facility] 2 08:31:34 Cerebrova scular accident 577286678 Active 2020 Karissa Henry NP [address] [place] [address] [place], [address], [facility] 2 08:30:48 Celluliti s of finger of right hand 635426808143 77249 Completed 202007/26/2021 Karissa Henry NP [address] [place] [address] [place], [address], [facility] 2 08:30:43 Mixed hyperlipi demia 132286023 Active 2020 Karissa Henry NP [address] [place] [address] [place], [address], [facility] 2 08:31:27 Late effects of cerebrova scular disease 871966972 Completed 201808/09/2022 Karissa Infante NP [address] [place] [address] [place], [address], [facility] 3 14:28:03 Headache 25083368 Completed 202108/09/2022 Karissa Infante NP [address] [place] [address] [place], [address], [facility] 3 14:27:26 Muscle pain 62032031 Completed 202108/09/2022 Karissa Infante NP [address] [place] [address] [place], [address], [facility] 3 14:28:07 Atrial fibrillat ion 34632378 Active 2022 Karissa Infante NP [address] [place] [address] [place], [address], [facility] 3 14:29:39 Type 2 diabetes mellitus 43926224 Active 2022 Karissa Infante NP [address] [place] [address] [place], [address], [facility] 3 14:34:28 Problem Notes None recorded. Procedures Surgical History Date Name Laterality Status Provider Name and Address Organization Details Recorded Time Laparotomy completed [facility] 12:27:25 Back Surgery completed [facility] 01/03/2020 12:27:44 Tonsillectomy completed [facility] 01/03/2020 12:27:50 Imaging Results None recorded. Procedure Notes None recorded. Medical Equipment None Reported. Allergies Allergen ID Allergen Name Allergen Category Reaction Reaction Severity Criticality Documentation Date Start Date Code Code System Note Provider Name and Address Organization Details Recorded Time 5247 Reglan medicatio n other Not available Not available 05/19/2020 9230 RxNorm irrit able, parad [place] react ion Carol Hunter [facility] 12:08:28 5248 midazolam hydrochlo ride medicatio n Not available Not available Not available 05/19/2020 47499 8 RxNorm parad oxica l react ion Caroljoaquin gutierres, [facility] 12:08:55 86 aspirin medicatio n anaphylax is Not available Not available 01/27/2018 1191 [facility] 13:35:37 87 Non-stero idal anti-infl ammatory agent (product) medicatio n anaphylax is Not available Not available 01/27/2018 60027 005 SNOMED KARLEE BENNETT [facility], [facility] 8 13:36:19 Medications Name Sig Start Date Stop Date Status Note LastModified by Organization Details LastModified Time Prescript ion - Renewal 07/26 completed Not Available Not Available Not Available sure comfort alcohol prep p USE TOPICALL Y TO STERILIZ E BLOOD SUGAR TESTING SITES AND INSULIN INJECTIO N SITES FOR A TOTAL OF NINE TIMES A DAY 07/26 completed Not Available Not Available Not Available sure comfort 1 ml syringe USE SIX TIMES DAILY FOR ADMINIST RATION OF MEDICATI ON active Not Available Not Available No t Available Prescript ion - Clarifica tion 07/26 completed Insulin Sliding Scale Not Available Not Available Not Available Prescript ion - New 02/28 completed Not Available Not Available Not Available losartan 50 mg tablet TAKE ONE TABLET BY MOUTH DAILY active Not Available Not Available No t Available quetiapin e 25 mg tablet Take 1 tablet by oral route at bedtime. 12/08 completed Not Available Not Available Not Available amoxicill in 500 mg capsule TAKE ONE CAPSULE BY MOUTH TWO TIMES A DAY FOR TEN DAYS 08/09 completed Not Available Not Available Not Available Anti-Diar rheal (loperami de) 2 mg tablet TAKE ONE TABLET BY MOUTH EVERY 6 HOURS NEEDED 2020 active Not Available Not Available Not Avai lable fluconazo le 100 mg tablet 04/16 completed Not Available Not Available Not Available methocarb mahsa 500 mg tablet Take 2 tablets every 6 hours by oral route as needed for 30 days. 12/08 completed Not Available Not Available Not Available BD Alcohol Swabs USE 1 ALCOHOL SWAB WITH EACH INJECTIO N OF INSULIN X6 AND CHECKING OF GLUCOSE X5 active Not Available Not Available No t Available atorvasta tin 80 mg tablet Take 1 tablet every day by oral route at bedtime. 01/02 completed Not Available Not Available Not Available atorvasta tin 20 mg tablet Take 1 tablet every day by oral route for 90 days. 01/31 completed cardiolo gy Not Available Not Available Not Available loperamid e 2 mg capsule TAKE TWO CAPSULES BY MOUTH EVERY FOUR HOURS NEEDED FOR DIARRHEA active Not Available Not Available No t Available trazodone 50 mg tablet TAKE 1 OR 2 TABLETS BY MOUTH AT BEDTIME NEEDED active Not Available Not Available No t Available Stool Softener 100 mg capsule TAKE 1 CAPSULE BY MOUTH EVERY DAY 08/09 completed Not Available Not Available Not Available azithromy dominga 250 mg tablet TAKE 2 TABLETS BY MOUTH THE FIRST DOSE ON DAY ONE, THEN TAKE 1 TABLET DAILY FOR 4 MORE DAYS. 08/09 completed Not Available Not Available Not Available metoprolo l succinate ER 50 mg tablet,ex tended release 24 hr TAKE ONE TABLET BY MOUTH EVERY DAY active Not Available Not Available No t Available levetirac etam 500 mg tablet 06/13 completed Not Available Not Available Not Available ondansetr on HCl 4 mg tablet 04/16 completed Not Available Not Available Not Available clonazepa m 1 mg tablet 10/18 completed Not Available Not Available Not Available Non-Aspir in Pain Relief 500 mg tablet TAKE TWO TABLETS BY MOUTH THREE TIMES A DAY NEEDED FOR 30 DAYS active Not Available Not Available No t Available Lantus U-100 Insulin 100 unit/mL subcutane ous solution INJECT 80 UNITS TWO TIMES A DAY 08/09 completed Not Available Not Available Not Available hydroxyzi ne pamoate 50 mg capsule NEEDED 01/02 completed Not Available Not Available Not Available Accu-Chek Softclix Lancets 07/19 completed Not Available Not Available Not Available topiramat e 25 mg tablet TAKE ONE TABLET BY MOUTH AT BEDTIME active Not Available Not Available No t Available meclizine 12.5 mg tablet TAKE (1) TABLET THREE TIMES DAILY NEEDED. active Not Available Not Available No t Available potassium chloride ER 10 mEq tablet,ex tended release TAKE ONE TABLET BY MOUTH EVERY DAY active Not Available Not Available No t Available clopidogr el 75 mg tablet TAKE ONE TABLET BY MOUTH EVERY DAY active Not Available Not Available No t Available simvastat in 80 mg tablet Take 1 tablet every day by oral route at bedtime. 07/19 completed Not Available Not Available Not Available folic acid 400 mcg tablet TAKE 1 TABLET BY MOUTH ONCE DAILY. active Not Available Not Available No t Available sulfameth oxazole 800 mg-trimet hoprim 160 mg tablet TAKE ONE TABLET BY MOUTH TWO TIMES A DAY FOR SEVEN DAYS 01/31 completed Not Available Not Available Not Available Nicotrol 10 mg inhalatio n cartridge 08/09 completed Not Available Not Available Not Available tramadol 50 mg tablet 08/31 completed Not Available Not Available Not Available glimepiri de 2 mg tablet 01/02 completed Not Available Not Available Not Available fenofibra te micronize d 134 mg capsule TAKE ONE CAPSULE BY MOUTH DAILY AT BEDTIME FOR 30 DAYS 08/09 completed Not Available Not Available Not Available glimepiri de 1 mg tablet 01/02 completed Not Available Not Available Not Available pantopraz ole 20 mg tablet,de layed release TAKE ONE TABLET BY MOUTH EVERY DAY active Not Available Not Available No t Available Sure Comfort Insulin Syringe 1 mL 28 gauge x 03/18 active Not Available Not Available Not Available lorazepam 0.5 mg tablet TAKE (1) TABLET THREE TIMES DAILY NEEDED. 12/03 completed Not Available Not Available Not Available metoclopr amide 5 mg tablet TAKE (1) TABLET BY MOUTH 3 TIMES DAILY 12/08 completed Not Available Not Available Not Available methocarb mahsa 750 mg tablet Take 1 tablet 4 times a day by oral route. 08/31 completed Not Available Not Available Not Available trazodone 100 mg tablet TAKE ONE TABLET BY MOUTH EVERY DAY 08/09 completed Not Available Not Available Not Available meclizine 25 mg tablet 04/16 completed Not Available Not Available Not Available prochlorp erazine 25 mg rectal supposito ry Insert 1 supposit ory twice a day by rectal route as needed. 12/08 completed Not Available Not Available Not Available baclofen 10 mg tablet TAKE ONE TABLET BY MOUTH EVERY 6 HOURS FOR 30 DAYS active Not Available Not Available No t Available Sure Comfort Insulin Syringe 1 mL 30 gauge x 5/16 USE TWO TIMES A DAY WITH LANTUS VIALS active Not Available Not Available No t Available hydrocodo ne 7.5 mg-acetam inophen 325 mg tablet 05/19 completed Not Available Not Available Not Available cephalexi n 500 mg capsule TAKE ONE CAPSULE BY MOUTH EVERY 6 HOURS FOR 3 DAYS 01/31 completed Not Available Not Available Not Available pantopraz ole 40 mg tablet,de layed release TAKE 1 TABLET BY MOUTH ONCE DAILY. 12/08 completed Not Available Not Available Not Available oseltamiv ir 75 mg capsule 04/16 completed Not Available Not Available Not Available Banophen 25 mg tablet TAKE ONE CAPSULE BY MOUTH EVERY 4 HOURS NEEDED 07/26 completed Not Available Not Available Not Available insulin syringe U-100 with needle 0.3 mL 29 gauge x 1/2 02/05 completed Not Available Not Available Not Available nystatin 100,000 unit/gram topical cream 01/02 completed Not Available Not Available Not Available buspirone 10 mg tablet Take 1 tablet 3 times a day by oral route as needed. 08/31 completed Not Available Not Available Not Available lisinopri l 10 mg tablet 04/16 completed Not Available Not Available Not Available promethaz ine 25 mg tablet TAKE ONE TABLET BY MOUTH EVERY 6 HOURS NEEDED FOR NAUSEA active Not Available Not Available No t Available losartan 25 mg tablet Take 1 tablet every day by oral route for 90 days. 08/09 completed Not Available Not Available Not Available metoprolo l tartrate 50 mg tablet Take 1 tablet twice a day by oral route. 07/19 completed Not Available Not Available Not Available Daily Multivita min-Clarion als tablet Take 1 tablet every day by oral route. active Not Available Not Available No t Available hydrochlo rothiazid e 12.5 mg capsule 07/19 completed Not Available Not Available Not Available sertralin e 25 mg tablet 10/18 completed Not Available Not Available Not Available omeprazol e 20 mg capsule,d elayed release 12/08 completed Not Available Not Available Not Available gentamici n 0.1 % topical cream 01/02 completed Not Available Not Available Not Available Tylenol 325 mg tablet TAKE 1-2 TABLETS BY MOUTH EVERY 6 HOURS NEEDED FOR PAIN 2021 active Not Available Not Available Not Avai lable cephalexi n 500 mg tablet Take 1 tablet every 6 hours by oral route for 3 days. 01/25 completed Not Available Not Available Not Available hydroxyzi ne HCl 25 mg tablet TAKE ONE TABLET BY MOUTH THREE TIMES A DAY NEEDED 08/09 completed Not Available Not Available Not Available ammonium lactate 12 % topical cream APPLY TOPICALL Y TWO TIMES A DAY TO FEET AND LEGS FOR DRY SKIN active Not Available Not Available No t Available zinc 50 mg tablet Take 1 tablet every day by oral route. 08/10 completed Not Available Not Available Not Available levetirac etam 750 mg tablet TAKE TWO TABLETS BY MOUTH TWO TIMES A DAY active Not Available Not Available No t Available hydrochlo rothiazid e 25 mg tablet 07/19 completed Not Available Not Available Not Available metoprolo l succinate ER 25 mg tablet,ex tended release 24 hr Take 1 tablet every day by oral route for 90 days. 08/09 completed Not Available Not Available Not Available Novolog U-100 Insulin aspart 100 unit/mL subcutane ous solution INJECT 25 UNITS WITH MEALS --ALSO PER SLIDING SCALE active Not Available Not Available No t Available Prometheg an 25 mg rectal supposito ry 10/18 completed Not Available Not Available Not Available lorazepam 1 mg tablet TAKE ONE TABLET BY MOUTH THREE TIMES A DAY active Not Available Not Available No t Available methylpre dnisolone 4 mg tablets in a dose pack 05/19 completed Not Available Not Available Not Available albuterol sulfate HFA 90 mcg/actua tion aerosol inhaler Inhale 2 puff(s) every 6 hoursby inhalati on route as needed. active Not Available Not Available No t Available hydroxyzi ne HCl 10 mg tablet Take 1 tablet every 8 hours by oral route as needed for 30 days. 07/26 completed Not Available Not Available Not Available ondansetr on 4 mg disintegr ating tablet 05/19 completed Not Available Not Available Not Available cholecalc iferol (vitamin D3) 125 mcg (5,000 unit) capsule TAKE ONE CAPSULE BY MOUTH EVERY DAY 2020 active Not Available Not Available Not Avai lable doxycycli ne hyclate 100 mg tablet TAKE ONE TABLET BY MOUTH TWO TIMES A DAY 01/31 completed Not Available Not Available Not Available diazepam 5 mg tablet 10/18 completed Not Available Not Available Not Available amoxicill in 875 mg-potass ium clavulana te 125 mg tablet 12/08 completed Not Available Not Available Not Available oxycodone 5 mg tablet 08/09 completed Not Available Not Available Not Available hydroxyzi ne pamoate 25 mg capsule active Not Available Not Available Not Available Benadryl 25 mg capsule Take 1 capsule every 4 hours by oral route as needed. 03/14 completed Not Available Not Available Not Available Novolog Mix 70-30 FlexPen U-100 Insulin 100 unit/mL subcutane ous pen 01/02 completed Not Available Not Available Not Available atomoxeti ne 40 mg capsule 04/16 completed Not Available Not Available Not Available Novolog Mix 70-30 U-100 Insulin 100 unit/mL subcutane ous solution Inject 17 units 3 times a day by subcutan eous route with meals. 01/02 completed Not Available Not Available Not Available Novolog FlexPen U-100 Insulin aspart 100 unit/mL (3 mL) subcutane ous 07/26 completed Not Available Not Available Not Available cyclobenz aprine 5 mg tablet 12/08 completed Not Available Not Available Not Available rosuvasta tin 10 mg tablet TAKE ONE TABLET BY MOUTH EVERY DAY active Not Available Not Available No t Available potassium chloride ER 10 mEq tablet,ex tended release(p art/cryst ) TAKE ONE TABLET BY MOUTH EVERY DAY 08/09 completed Not Available Not Available Not Available bupropion HCl XL 300 mg 24 hr tablet, extended release 04/16 completed Not Available Not Available Not Available bupropion HCl XL 150 mg 24 hr tablet, extended release 04/16 completed Not Available Not Available Not Available duloxetin e 30 mg capsule,d elayed release TAKE (1) CAPSULE BY MOUTH ONCE DAILY FOR 90 DAYS 03/05 completed Not Available Not Available Not Available duloxetin e 60 mg capsule,d elayed release TAKE ONE CAPSULE BY MOUTH EVERY DAY 08/09 completed Not Available Not Available Not Available fenofibra te 160 mg tablet 02/28 completed Not Available Not Available Not Available GlucaGen HypoKit 1 mg Injection active Not Available Not Available No t Available pregabali n 150 mg capsule TAKE ONE CAPSULE BY MOUTH THREE TIMES A DAY active Not Available Not Available No t Available loperamid e prn 02/28 completed Not Available Not Available Not Available Plavix 08/31 completed Not Available Not Available Not Available potassium 10 meq daily 02/28 completed Not Available Not Available Not Available Vitamin D3 5000 units daily 12/08 completed Not Available Not Available Not Available multivita min 07/26 completed Not Available Not Available Not Available levetirac etam 1,000 mg tablet Take 1 tablet every 12 hours by oral route. 06/13 completed Not Available Not Available Not Available Easy Touch Insulin Syringe 0.5 mL 29 gauge x 1/2 USE ONE INSULIN SYRINGE TO ADMINIST ER MEDICATI ON 6 TIMES DAILY active Not Available Not Available No t Available fenofibra te nanocryst allized 48 mg tablet TAKE 1 TABLET BY MOUTH ONCE DAILY. active Not Available Not Available No t Available hydrochlo rothiazid e 12.5 mg tablet Take 1 tablet every day by oral route. 07/19 completed Not Available Not Available Not Available Lantus Solostar U-100 Insulin 100 unit/mL (3 mL) subcutane ous pen 75 UNITS AT BEDTIME active Not Available Not Available No t Available Humalog KwikPen (U-100) Insulin 100 unit/mL subcutane ous 07/26 completed Not Available Not Available Not Available oxycodone 10 mg tablet TAKE ONE TABLET BY MOUTH EVERY FOUR HOURS, MAXIMUM OF SIX TABLETS A DAY FOR PAIN active Not Available Not Available No t Available fenofibra te 54 mg tablet TAKE ONE TABLET BY MOUTH DAILY AT BEDTIME 03/13 completed Not Available Not Available Not Available zinc amino acid chelate 50 mg tablet Take 1 tablet(s ) every day by oral route. 12/08 completed Not Available Not Available Not Available Vitamin D3 125 mcg (5,000 unit) tablet Take 1 tablet every day by oral route. active Not Available Not Available No t Available BD AutoShiel d Duo Pen Needle 30 gauge x 3/16 12/08 completed Not Available Not Available Not Available OneTouch Verio test strips USE TO CHECK SUGAR 4 TIMES DAILY DX:E11.9 active Not Available Not Available No t Available TRUEplus Insulin 1 mL 31 gauge x 5/16 syringe Use as directed 8 TIMES PER DAY active Not Available Not Available No t Available EpiPen 2-Tolu 0.3 mg/0.3 mL injection , auto-inje ctor Take 1 mg by injectio n route as directed . active Not Available Not Available No t Available TechLITE Lancets 28 gauge active Not Available Not Available Not Available Easy Comfort Insulin Syringe 0.5 mL 30 gauge x 1/2 07/26 completed Not Available Not Available Not Available Farxiga 10 mg tablet Take 1 tablet every day by oral route for 30 days. 08/09 completed Not Available Not Available Not Available Jardiance 10 mg tablet Take 1 tablet every day by oral route. 07/19 completed Not Available Not Available Not Available Trulicity 0.75 mg/0.5 mL subcutane ous pen injector 04/16 completed Not Available Not Available Not Available naloxone 4 mg/actuat ion nasal spray USE DIRECTED 0.1ML IN NOSTRIL, REPEAT AFTER 3 MINUTES IF NO OR MINIMAL RESPONSE FOR ONE DAY active Not Available Not Available No t Available OneTouch Verio Flex Meter active Not Available Not Available Not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
--- OUTSIDE RECORDS SUMMARY | 2024-09-08 21:26 | XMS_ITS | Encounter Summary ---
Author Organization [facility] Address [address] [place] [address] Care Team Providers Care Legal Executive Assistant Name Role Phone Carli Samayoa APRN, CNP Primary Care Provider Reason for Visit * Reason Comments Medication Refill Encounter Details Date Type Department Care Team (Late st Contact Info) Description 07/25/2018 Refill [facility] [address] [place] [address] [place] [address] Linda Crowley MD [address] [place] [address], [address] [place], [place] [id number] Medication Refill Social History Tobacco Use Types Packs/Day Years Used Date Smoking Tobacco: Every Day Cigarettes 1 26 Smokeless Tobacco: Never Alcohol Use Standard Drinks/Week Comments Yes 0 (1 standard drink = 0.6 oz [...] documented as of this encounter Care Teams Legal Executive Assistant Relationship Specialty Start Date End Date Carli Samayoa APRN - CNP [address] [facility] [address] [place] [address] PCP - General Nurse Practitioner 04/16/20 documented as of this encounter
[2024-09-08 21:30] LABS: Alanine Aminotransferase 12 U/L (12-78); Albumin Level 4.5 g/dl (3.5-5.0); Albumin/Globulin Ratio 1.5 (1.1-1.8); Alkaline Phosphatase 46 U/L (38-126); Anion Gap 10.6 mEq/L (5-15); Aspartate Amino Transferase 20 U/L (17-59); Bilirubin,Total 0.6 mg/dl (0.2-1.3); Blood Urea Nitrogen 12 mg/dl (9-20); Carbon Dioxide 28 mmol/L (22.0-30.0); Chloride 104 mmol/L (98-107); Estimated Glomerular Filt Rate 71 ml/min (>60); GFR (African American) 86 ML/MIN (>60); Globulin 3.1 g/dL (1.3-3.2); Glucose 81 mg/dl (74-100); Lactate Venous 1.8 mmol/L (0.4-2.0); Potassium 3.6 mmoL/L (3.5-5.1); Sodium 139 mmol/L (136-145); Total Protein,Serum 7.6 g/dl (6.3-8.2); VBG HCO3 24.2 mmol/L (23-30); VBG Oxygen Saturation 70.2 % (50-70); VBG PH 7.31 mmol/L (7.31-7.41); VBG PO2 32.8 mmol/L (28-40); VBG Total CO2 25.7 mmol/L (23-27)
[2024-09-08 21:32] LABS: Acetaminophen < 10 ug/ml (10-30); Salicylate < 1.0 mg/dL (2.0-20.0)
[2024-09-08 21:41] LABS: Ethyl Alcohol < 10 mg/dl (0-10)
--- NOTE | 2024-09-08 21:42 | PC.NURSE ---
Involuntary hold paperwork completed and faxed to [employer].
[2024-09-08] MEDS: levETIRAcetam 500 MG TABLET 1500 MG PO (21:54)
[2024-09-08] MEDS: OXYCODONE 5MG IMMEDIATE RELEASE TABLET 5 MG PO (21:54)
[2024-09-08 22:00] VITALS: BP 110/61; PULSE 73; O2SAT 96
[2024-09-08 22:12] LABS: Microscopic, Urine URINE MICROSCOPIC (MICROSCOPIC)
[2024-09-08 22:13] LABS: Appearance,Urine CLEAR (Clear); Bilirubin,Urine Negative (Negative); Blood, Urine Negative (Negative); Color,Urine YELLOW (Yellow); Glucose,Urine (UA) 3+ (Negative); Ketones,Urine Negative (Negative); Leukocyte Esterase,Urine Negative (Negative); Nitrate,Urine Negative (Negative); Protein,Urine TRACE (Negative); Specific Gravity, Urine 1.015 (1.005-1.030); Urobilinogen,Urine 0.2 EU/dl (0.2)
[2024-09-08 22:26] LABS: Amphetamine/Metha Screen,Urine Negative ng/ml (<1000)
[2024-09-08 22:27] LABS: Barbiturates Screen,Urine Negative ng/ml (<200); Benzodiazepines Screen,Urine Negative ng/ml (<200)
[2024-09-08 22:28] LABS: Cannabinoid Screen,Urine Negative ng/ml (<50)
[2024-09-08 22:29] LABS: Bacteria,Urine Trace /lpf; Cocaine Screen,Urine Negative ng/ml (<300); Methadone Screen,Urine Negative ng/ml (<300); Mucus,Urine 1+ /lpf; RBC,Urine Occasional #/hpf (0-3); WBC,Urine Occasional #/hpf (0-3)
[2024-09-08] MEDS: TOPIRAMATE 25MG TABLET 25 MG PO (22:29)
[2024-09-08 22:30] LABS: Opiate Screen,Urine Positive ng/ml (<300); Phencyclidine Screen,Urine Negative ng/ml (<25)
[2024-09-08 22:31] VITALS: BP 88/58; PULSE 75; O2SAT 98
[2024-09-08 22:36] VITALS: BP 104/59; PULSE 74; O2SAT 96
[2024-09-08] MEDS: LORazepam 1MG TABLET 1 MG PO (22:53)
[2024-09-08 23:01] VITALS: BP 132/55; PULSE 73; O2SAT 97
[2024-09-08] MEDS: PREGABALIN 50MG CAPSULE 150 MG PO (23:02)
--- NOTE | 2024-09-08 23:13 | PC.NURSE ---
pt able to tolerate eating a sandwich
[2024-09-08 23:30] VITALS: BP 108/56; PULSE 73; O2SAT 97
[2024-09-09] VITALS (12 sets, daily range): BP systolic 87–119; BP diastolic 45–70; PULSE 69–75; RESP 20; TEMP 36.7; O2SAT 96–99
[2024-09-09 01:18] LABS: Anion Gap 9.1 mEq/L (5-15); Blood Urea Nitrogen 9 mg/dl (9-20); Calcium 6.4 mg/dl (8.4-10.2); Carbon Dioxide 19 mmol/L (22.0-30.0); Chloride 114 mmol/L (98-107); Creatinine Clearance Estimated 15 mL/min (50-200); Estimated Glomerular Filt Rate 102 ml/min (>60); GFR (African American) 124 ML/MIN (>60); Glucose 103 mg/dl (74-100); Sodium 140 mmol/L (136-145)
[2024-09-09 01:22] LABS: Potassium 2.1 mmoL/L (3.5-5.1)
--- NOTE | 2024-09-09 01:24 | PC.NURSE ---
Critical received of K+ 2.1. aware.
[2024-09-09 01:58] LABS: Anion Gap 13.2 mEq/L (5-15); Blood Urea Nitrogen 13 mg/dl (9-20); Calcium 9.6 mg/dl (8.4-10.2); Carbon Dioxide 26 mmol/L (22.0-30.0); Chloride 102 mmol/L (98-107); Creatinine Clearance Estimated 9 mL/min (50-200); Estimated Glomerular Filt Rate 58 ml/min (>60); GFR (African American) 71 ML/MIN (>60); Glucose 126 mg/dl (74-100); Potassium 3.2 mmoL/L (3.5-5.1); Sodium 138 mmol/L (136-145)
--- NOTE | 2024-09-09 02:00 | PC.NURSE ---
Report received from Escobar ZURITA Pt resting quietly in bed Skin pink warm and dry Resp full and easy. Speech clear and appropriate. IV site without redness or edema 1:1 sitter at bedside
--- NOTE | 2024-09-09 02:16 | PC.NURSE ---
Poison control calls to request update on patient. Reports he can either go home or to [facility] at this point he's cleared
[2024-09-09 02:20] LABS: Magnesium 1.8 mg/dl (1.6-2.3)
--- NOTE | 2024-09-09 02:23 | PC.NURSE ---
pt requested a different nurse. i have made the nurses aware and charge nurse is also aware. pt is still in one on one observation at this time.
--- NOTE | 2024-09-09 02:25 | PC.NURSE ---
Dr Posadas on the phone speaking with staff at [facility].
--- NOTE | 2024-09-09 02:34 | PC.NURSE ---
Pt requests to speak to Pt states he is having severe back pain and would like to take his regularly scheduled Oxycodone. MD aware and sent to bedside to speak with patient.
[2024-09-09] MEDS: OXYCODONE 5MG IMMEDIATE RELEASE TABLET 10 MG PO (02:39)
--- NOTE | 2024-09-09 02:54 | PC.NURSE ---
Report called to Moni Cortezath. Pt awaiting transport Aware of plans for admission and delay for transport
[2024-09-10 12:12] LABS: C-Peptide 1.3 ng/mL (1.1-4.4); Insulin Level Total 31.9 uIU/mL (2.6-24.9)
== END 2024-09-09 05:20 ==
PROVIDERS: Emergency Medicine; Emergency Provider Emergency Medicine; PCP Nurse Practitioner
DX: T38.3X2A Poisoning by insulin and oral hypoglycemic [antidiabetic] drugs, intentional self-harm, initial encounter (principal); F17.210 Nicotine dependence, cigarettes, uncomplicated; E11.9 Type 2 diabetes mellitus without complications; T14.91XA Suicide attempt, initial encounter; Z79.4 Long term (current) use of insulin
CPT/HCPCS: 80048; 80053; 80307; 80320; 80329; 81001; 82803; 83525; 83735; 84681; 85025; 93005; 99291

== ENCOUNTER 2024-09-21 07:56 | Inpatient (IN) | payer MEDICARE, MEDICAID, SELFPAY ==
--- OUTSIDE RECORDS SUMMARY | 2011-02-15 15:00 | XMS_ITS | Encounter Summary ---
Author Organization [facility] Address [address] [place] [address] Care Team Providers Care Land Clearer Name Role Phone Mary Ann Henson MD Primary Care Provider U kam Encounter Details Date Type Department Care Team (Late st Contact Info) Description 02/15/2011 2:00 PM EST Hospital Encounter [facility] [address] [place] [address] Social History Tobacco Use Types Packs/Day Years [...] documented as of this encounter Care Teams Land Clearer Relationship Specialty Start Date End Date Mary Ann Henson MD PCP - General Family Medicine 11/26/10 03/13/13 documented as of this encounter
--- OUTSIDE RECORDS SUMMARY | 2011-02-18 15:00 | XMS_ITS | Encounter Summary ---
Author Organization [facility] Address [address] [place] [address] Care Team Providers Care Asset Card Clerk Name Role Phone Mary Ann Henson MD Primary Care Provider U kam Encounter Details Date Type Department Care Team (Late st Contact Info) Description 02/18/2011 2:00 PM EST Hospital Encounter [facility] [address] [place] [address] Social History Tobacco Use Types Packs/Day Years [...] Progress Notes * Kim Menezes, PT - 02/18/2011 3:03 PM EST Images from the original note were not included. Physical Therapy Cancellation/No-show Note Patient Name: Kingsley Hernandez : 1975 Date: 02/18/2011 Cancels to date: 1 No-shows to date: 2 For today's appointment patient: [] Cancelled [] [...] documented as of this encounter Care Teams Asset Card Clerk Relationship Specialty Start Date End Date Mary Ann Henson MD PCP - General Family Medicine 11/26/10 03/13/13 documented as of this encounter
--- OUTSIDE RECORDS SUMMARY | 2011-02-22 15:00 | XMS_ITS | Encounter Summary ---
Author Organization [facility] Address [address] [place] [address] Care Team Providers Care Long Filler Cigar Roller Machine Name Role Phone Mary Ann Henson MD Primary Care Provider U kam Encounter Details Date Type Department Care Team (Late st Contact Info) Description 02/22/2011 2:00 PM EST Hospital Encounter [facility] [address] [place] [address] Social History Tobacco Use Types Packs/Day Years [...] documented as of this encounter Care Teams Long Filler Cigar Roller Machine Relationship Specialty Start Date End Date Mary Ann Henson MD PCP - General Family Medicine 11/26/10 03/13/13 documented as of this encounter
--- OUTSIDE RECORDS SUMMARY | 2011-02-25 15:00 | XMS_ITS | Encounter Summary ---
Author Organization [facility] Address [address] [place] [address] Care Team Providers Care Last Scourer Name Role Phone Mary Ann Henson MD Primary Care Provider U kam Encounter Details Date Type Department Care Team (Late st Contact Info) Description 02/25/2011 2:00 PM EST Hospital Encounter [facility] [address] [place] [phone] Social History Tobacco Use Types Packs/Day Years [...] documented as of this encounter Care Teams Last Scourer Relationship Specialty Start Date End Date Mary Ann Henson MD PCP - General Family Medicine 11/26/10 03/13/13 documented as of this encounter
--- OUTSIDE RECORDS SUMMARY | 2011-03-01 15:00 | XMS_ITS | Encounter Summary ---
Author Organization [facility] Address [address] [place] [address] Care Team Providers Care Law Firm Consultant Name Role Phone Mary Ann Henson MD Primary Care Provider U kam Encounter Details Date Type Department Care Team (Late st Contact Info) Description 03/01/2011 2:00 PM EST Hospital Encounter [facility] [address] [place] [address] Social History Tobacco Use Types Packs/Day Years [...] PM EDT documented as of this encounter Plan of Treatment Not on file documented as of this encounter Visit Diagnoses Not on filedocumented in this encounter Additional Health Concerns Infection Onset Date Last Indicated Resolved Time COVID-19 (Rule Out) 08/20/2020 08/20/2020 08/22/19 21 3:42 PM EDT documented as of this encounter Care Teams Law Firm Consultant Relationship Specialty Start Date End Date Mary Ann Henson MD PCP - General Family Medicine 11/26/10 03/13/13 documented as of this encounter
--- OUTSIDE RECORDS SUMMARY | 2024-09-09 07:40 | XMS_ITS | Encounter Summary ---
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 mouth 4 times a day as needed for muscle spasms. calcitriol 0.25 MCG capsule Commonly known as: Rocaltrol Take 1 capsule by mouth 3 times a week. clopidogrel 75 MG tablet Commonly known as: Plavix Take 1 tablet (75 mg) by mouth 1 (one) time each day. EPINEPHrine 0.3 MG/0.3ML autoinjector Commonly known as: Epipen Inject 0.3 mL as directed as needed for anaphylaxis. fenofibrate 48 MG tablet Commonly known as: Tricor Take 1 tablet by mouth daily. folic acid 400 MCG tablet Commonly known as: Folvite Take 1 tablet by mouth daily. glucose 4 g chewable tablet Commonly known as: Trueplus Glucose Chew 1-4 tablets as needed for low blood sugar. insulin glargine 100 UNIT/ML injection vial Commonly known as: Lantus Inject 50 Units under the skin 2 times a day. isosorbide mononitrate ER 60 MG 24 hr tablet Commonly known as: Imdur Take 1 tablet by mouth daily. Do not crush or chew. Jardiance 25 MG Generic drug: empagliflozin Take 1 tablet by mouth daily. levETIRAcetam 750 MG tablet Commonly known as: Keppra Take 2 tablets by mouth 2 times a day. LORazepam 1 MG tablet Commonly known as: Ativan Take 1 tablet by mouth 3 times a day. losartan 50 MG tablet Commonly known as: Cozaar Take 1 tablet by mouth daily. Melatonin 10 MG tablet Take 10 mg by mouth at night as needed (for sleep). metoprolol succinate XL 100 MG 24 hr tablet Commonly known as: Toprol-XL Take 1 tablet by mouth daily. NovoLOG 100 UNIT/ML injection vial Generic drug: insulin aspart Inject 0-12 Units under the skin 3 times a day with meals. oxyCODONE 10 MG immediate release tablet Commonly known as: Roxicodone Take 1 tablet by mouth every 4 hours. potassium chloride CR 10 MEQ ER tablet Commonly known as: Klor-Con Take 1 tablet by mouth daily. Do not crush, chew, or split. pregabalin 150 MG capsule Commonly known as: Lyrica Take 1 capsule by mouth 3 times a day. * promethazine 25 MG tablet Commonly known as: Phenergan Take 1 tablet by mouth every 6 hours as needed for nausea or vomiting. * promethazine 25 MG suppository Commonly known as: Phenergan Insert 1 suppository into the rectum every 6 hours as needed for nausea or vomiting. ranolazine 500 MG 12 hr tablet Commonly known as: Ranexa Take 1 tablet by mouth 2 times a day. Do not crush, chew, or split. rosuvastatin 10 MG tablet Commonly known as: Crestor Take 1 tablet (10 mg) by mouth 1 (one) time each day. topiramate 25 MG tablet Commonly known as: Topamax Take 1 tablet by mouth nightly. traZODone 50 MG tablet Commonly known as: Desyrel Take 1-2 tablets by mouth at night as needed for sleep. * This list has 2 medication(s) that are the same as other medications prescribed for you. Read thedirections carefully, and ask your doctor or other care provider to review them with you. Follow-Up / Post-Discharge Instructions Follow up Recommendations: 1.) He was discharged to Home with family. 2.) He should follow up as per below. 3.) He should also followup with their Primary Care Physician for routine health maintenance. 4.) He was strongly encouraged to keep all future appointments and advised to take all prescribed medications as instructed. 5.) He should abstain from all mood-altering substances except those prescribed by a licensed prosthetist. His primary supports should monitor him for evidence of substance use and should alert his outpatient provider if use is suspected or confirmed. 6.) A safety plan was given at the time of discharge which included instructions to return to the nearest ER if patient becomes suicidal, homicidal, manic, psychotic, or develops any other urgent/emergent symptoms, or to call the 6-365-IGHTIL line. 7.) He voiced an understanding of the safety plan. Outpatient Follow-Up - Follow up for outpatient psychotherapy and psychiatric management at [facility]. - Patient will need to call them on Friday to see when his next follow-up appointment is. Per , patient counseled about this, as well as possibility that he may request a transfer to the [facility] or [facility] in the future if he chooses. [address] [address] # [phone] FAX# [phone] Test Results Pending At Discharge Pending Labs Order Current Status Benzodiazepine Confirm Urine In process OXYCODONE CONFIRMATION,URINE In process Pertinent Mental Status Exam At Time of Discharge Appearance: appears stated age, wearing hospital attire, and fair hygiene Behavior: cooperative, superficially interested in treatment but ultimately demanding of certain medications only Eye Contact: appropriate Involuntary Movements: absent Psychomotor Activity: no significant depression or agitation Speech: normal rate, tone and rhythm, appropriate elsie, and coherent speech Mood: Does not describe Affect: broad, full range of affect. Labile but mostly euthymic. LOC/Orientation: Awake and Alert, oriented to person, place, time, and general circumstances Cognition/Development/Knowledge: Cognition appears grossly normal, appropriate fund of knowledge for age and level of education Thought Process: linear, organized, and goal-directed Thought Content/Perceptions (AVH): denies auditory/visual hallucination and does not appear to be reacting to internal stimuli Suicidal Ideation: denied Homicidal Ideation: denied Reliability: patient appears to be reliable and cooperative informant Insight: poor Judgment: poor Discharge Disposition/Condition Disposition: Home with family Condition: Stable (s/sx potential problems absent or manageable) greater than 30 minutes was spent on evaluation and management of this patient. Frank Keller DO PGY-1, Psychiatry Cosigned by Vicente Del Valle MD at 09/13/2024 2:02 PM EDT Associated attestation - Vicente Del Valle MD - 09/13/2024 2:02 PM EDT I saw and evaluated the patient with the resident/fellow. I discussed the case with the resident/fellow and agree with the findings and plan as documented. and I spent >30 minutes of patient care and instruction time in preparation for this discharge. * Tri Zimmerman RN - 09/10/2024 9:37 AM EDT Images from the original note were not included. [id number] Warning Signs of Suicide and What To Do If you think a person may be suicidal, ask them. Say, Have you thought about suicide? Asking won't make it more likely that they will try to do it. In fact, many people with suicidal thoughts say they are relieved when the question is asked. If they say yes, they may already have a plan. They may know how and when they will attempt it. Find out as much as you can. A plan that is detailed and easy to carry out means the person is in danger right now. Know the warning signs The warning signs for suicide include: ? Threats or talk of suicide ? Talking about and dying ? Change in eating habits ? Change in sleeping habits, such as not sleeping or sleeping all of the time ? Feeling hopeless ? Suddenly buying a gun or other weapon ? Saying things such as Soon, I won't be a problem or Nothing matters ? Giving away things they own ? Making out a will or planning their ? Suddenly being happy or calm after being depressed Who?s at risk? Some things put a person at a higher risk of attempting suicide. They include: ? A history of suicide in their family ? Past suicide attempts ? Alcohol and drug use, along with impulsive behaviors ? Having a mood disorder, such as depression or bipolar disorder ? History of trauma or abuse including bullying ? Major loss, such as a divorce or of a loved one ? Money problems ? Legal problems ? Having access to a lethal weapon (such as a gun in the home) ? Long-term (chronic) physical illness, including chronic pain ? Being around others with suicidal behavior Getting help Don't try to handle this alone. Get the person to a trained healthcare provider. Suicidal thoughts may be a sign of depression. This is a serious but treatable illness. Call a mental health clinic or a licensed mental healthcare provider in your area right away. This may be a: ? Psychiatrist ? Clinical psychologist ? Psychiatric or licensed clinical social service coordinator ? Marriage and family counselor ? Clergy person When to call for crisis help If the person is at immediate risk, call or text the 981 Suicide & Crisis Lifeline at 988. Tellthe crisis counselor you need help for a person who is thinking about suicide. Or take the person to the nearest emergency room. Don't leave the person alone. Anyone who is at immediate risk of suicide needs care right away. Theperson must be constantly watched. They must never be left alone. Crisis help resources These services are free and available 07/10: ? 988 Suicide & Crisis Lifeline. Call or text 988. Lifeline can also be reached at [phone](730-559-OITI). An online chat choice is also available. Lifeline is free and available 07/10. ? ? National [place] on Mental Illness (NALLELY) at www.nallely.org. Call 170-855-0234. Or text NALLELY to 510758. ? Mental Health Geno at www.mhanational.org. Call 988. Or text MHA to 617123. ? Veterans Crisis Line at www.veteranscrisisline.net. Call 988 then press 1. Or text a message to 144954. Last Reviewed Date: 2023 00:00:00 ?? 8413-6994 [employer]. All rights reserved. This information is not intended as a substitute for professional medical care. Always follow your healthcare professional's instructions. * Krames OnFHTri Givens RN - 09/10/2024 9:37 AM EDT Images from the original note were not included. [id number] Recognizing Suicide Warning Signs in Yourself People who are thinking about suicide may not know they are depressed. Certain thoughts, feelings, and actions can be signals that let you know you may need help. The best thing you can do is watch for signs that you may be at risk. Then, ask for help. You can talk with your regular health care provider or get help from a mental health provider. Depression Depression is a treatable illness, just like diabetes or heart disease. And like those illnesses, depression is not something that you can just snap out of. To feel better, treatment is needed before depression gets to a point that it can endanger your life. To know if depression is causing you to feel like ending your life, ask yourself: ? Do I feel worthless, guilty, helpless, or hopeless? ? Have I been feeling sad, down, or blue on most days? ? Have I lost interest in my work or people I used to enjoy? ? Do I have trouble sleeping or do I sleep too much? ? Do I eat more or less than normal? ? Do I feel tired, weak, and low on energy? ? Do I feel restless and unable to sit still? ? Do I have trouble thinking or making choices? ? Do I cry more than normal? ? Do I feel life isn't worth living? Warning signs for suicide Contact your health care provider or get help right away if you have any of the warning signs below. You can also call a mental health clinic or the Suicide and Crisis Lifeline for help and support. Warning signs for suicide include: ? Thinking often about taking your life. ? Planning how you may attempt it. ? Talking or writing about suicide. ? Feeling that is the only solution to your problems. ? Feeling a pressing need to make out your will or arrange your . ? Giving away things you own. ? Taking part in risky behaviors, such as having sex with someone you don't know, or drinking and driving. ? Buying a lethal weapon, such as a gun, or hoarding medicines that could be used in an overdose. In a crisis, call or text 988 If you are in immediate risk of harming yourself or others, call 988. When you call or text 988, you will be connected to trained crisis counselors at the Suicide and Crisis Lifeline. An online chat is also available. Lifeline is free and available 07/10. To learn more For more information about depression and suicide prevention: ? Suicide and Crisis Lifeline at [employer] or call 032 or 9-380-007-TALK (978-696-0345) ? National [place] on Mental Illness at www.nallely.org or 591-257-6600 ? Mental Health Geno at www.nmha.org or 603-029-1269 ? National [place] of Mental Health at www.nimh.nih.gov or 114-206-2479 Last Reviewed Date: 2024 00:00:00 ?? 8554-0957 [employer]. All rights reserved. This information is not intended as a substitute for professional medical care. Always follow your healthcare professional's instructions. * Kelbrett TacoLAMONT - Tri Alba RN - 09/10/2024 9:37 AM EDT Images from the original note were not included. 74879 Depression and Suicide in Older Adults Nearly 2 million older adults in the [place] have some type of depression. Some of them even take their own lives. Yet depression among older adults is often ignored. Learning about the warning signs ofdepression may help spare a loved one needless pain. You may also save a life. What is depression? Depression is a common and serious illness. It affects the way you think and feel. It is not a normal part of aging. It is not a sign of weakness or a character flaw. Or something you can snap out of. Most people with depression need treatment to get better. The most common symptom is a feeling of deep sadness. People who are depressed also may seem tired and listless. And nothing seems to givethem pleasure. It?s normal to grieve or be sad sometimes. But sadness becomes less or passes with time. Depression rarely goes away or improves on its own. Other symptoms of depression are: ? Sleeping more or less than normal. ? Eating more or less than normal. ? Having headaches, stomachaches, or other pains that don?t go away. ? Feeling nervous, ?empty,? or worthless. ? Crying a lot. ? Thinking or talking about suicide or . ? Loss of interest in activities previously enjoyed. ? Social isolation. ? Feeling confused or forgetful. What causes depression? The causes of depression aren?t fully known. But it is thought to result from a complex blend of these factors: ? Biochemistry. Certain chemicals in the brain play a role. ? Genes. Depression does run in families. ? Life stress. Life stresses can also set off depression in some people. Older adults often face many stressors. These may include isolation, the of friends or a spouse, health problems, and financial concerns. ? Chronic health conditions. This includes diabetes, heart disease, or cancer. These can cause symptoms of depression. Medicine side effects can cause changes in thoughts and behaviors. ? Medicines. Certain medicines can cause side effects that contribute to depression. How is depression treated? Treatment includes psychotherapy and medicines, ? Psychotherapy. This can help by teaching new ways of thinking and behaving. It can also help to change habits that contribute to depression. ? Medicines. Antidepressants work by changing how your brain makes or uses certain chemicals responsible for mood or stress. Giving support Depressed people often may not want to ask for help. When they do, they may be ignored. Or they mayget the wrong treatment. You can help by showing parents and older friends love and support. If they seem depressed, don?t lecture the person or ignore the symptoms. Don't discount the symptoms as a ?normal? part of aging. They are not. Get involved, listen, and show interest and support. Help them understand that depression is a treatable illness. Tell them you can help them find the right treatment. Offer to go to their doctor's appointment with them for support when the symptoms are discussed. With their approval, contact a local mental health center, social service agency, or hospital about services. Helping at health care visits You can be an advocate for them at health care appointments. Many older adults have chronic illnesses. Many of these can cause symptoms of depression. Medicine side effects can change thoughts and behaviors. You can help make sure that the doctor looks at all of these factors. They should refer your familymember or friend to a mental doctor when needed. In some cases, untreated depression can lead to a misdiagnosis. A person may be diagnosed with a brain disorder, such as dementia. If the doctor does not take the issue of depression seriously, help your family member or friend find another doctor. Asking about self-harm thoughts If you think an older person you care about could be suicidal, ask, ?Have you thought about suicide?? Most people will tell you the truth. If they say yes, they may already have a plan for how and when they will attempt it. Find out as much as you can. The more detailed the plan, and the easier it is to carry out, the more danger the person is in right now. Tell the person you are there for them and you do not want them to be harmed. Don't wait to get help for the person. Call the person's doctor, local hospital, or emergency services. Call 988 in a crisis Never leave the person alone. A person who is actively suicidal needs crisis care right away. They need constant supervision. Never leave the person out of sight. Call 988 This is the [facility] Suicide & Crisis Lifeline. Tell the crisis counselor you need help for a person who is thinking about suicide. The counselor will help you get the right level of crisis help. You may be advised to take the person to the nearest emergency room. The 988 Suicide & Crisis Lifeline is available at [employer], or 052-444-LDQI (559-157-8897), or www.[employer].org. When you call or text 988, you will be connected to a trained counselor you can talkto. There's also an online chat option. The [employer] Lifeline is free and available 07/10. To learn more ? [employer] Suicide & Crisis Lifeline or 229-922-MVEH (052-661-8064) ? National [place] on Mental Illness at www.nallely.org or 826-545-RPTI (999-688-8833) ? Mental Health Geno at www.nmha.org or 165-058-2398 ? National [place] of Mental Health at www.nimh.nih.gov or 285-530-5597 Last Reviewed Date: 2024 00:00:00 ?? 9867-7156 [employer]. All rights reserved. This information is not intended as a substitute for professional medical care. Always follow your healthcare professional's instructions. * Nursing Note - Tri Alba RN - 09/10/2024 9:17 AM EDT Pt continues admission on adult behavioral health unit. Pt out and about on the unit today- interactive and cooperative with staff. Pt did not attend groups. Hygiene, hydration, and nutrition encouraged. Pt presents with calm mood and normal affect. Pt denies SI/HI/AVH at this time. No signs of physical distress noted. Pt alert and oriented x4. Thought content appears grossly organized. Vital signs stable. Pt continues to comply with medication regimen, and will continue to be medicated per EMAR. No PRN provided. Encouragement provided and will continue to monitor for safety, encourage patient to voice safety concerns, and implement current plan of care. * Care Plan - Tri Alba RN - 09/10/2024 9:16 AM EDT Problem: Adult Inpatient Plan of Care Goal: Plan of Care Review Outcome: Ongoing, Progressing Flowsheets (Taken 09/10/2024 0915) Progress: improving Outcome Evaluation: Verbalized understanding Plan of Care Reviewed With: patient Goal: Patient-Specific Goal (Individualized) Outcome: Ongoing, Progressing Flowsheets (Taken 09/10/2024 0842) Patient/Family-Specific Goals (Include Timeframe): Patient will be able to explain one coping skillbefore disharge Individualized Care Needs: Needs frequent hydration and reassurance Anxieties, Fears or Concerns: Was regretful for his behavior yesterday Goal: Absence of Hospital-Acquired Illness or Injury Outcome: Ongoing, Progressing Goal: Optimal Comfort and Wellbeing Outcome: Ongoing, Progressing Goal: Readiness for Transition of Care Outcome: Ongoing, Progressing Problem: Depressive Signs/Symptoms Goal: Optimized Energy Level (Depressive Signs/Symptoms) Outcome: Ongoing, Progressing Flowsheets (Taken 09/10/2024 0915) Mutually Determined Action Steps (Optimized Energy Level): grooms self without prompting Goal: Optimized Cognitive Function (Depressive Signs/Symptoms) Outcome: Ongoing, Progressing Flowsheets (Taken 09/10/2024914) Mutually Determined Action Steps (Optimized Cognitive Function): participates in attention training Goal: Increased Participation and Engagement (Depressive Signs/Symptoms) Outcome: Ongoing, Progressing Flowsheets (Taken 09/10/2024914) Mutually Determined Action Steps (Increased Participation and Engagement): participates in one or more activity Goal: Enhanced Self-Esteem and Confidence (Depressive Signs/Symptoms) Outcome: Ongoing, Progressing Flowsheets (Taken 09/10/2024914) Mutually Determined Action Steps (Enhanced Self-Esteem and Confidence): identifies judgmental thoughts Goal: Improved Mood Symptoms (Depressive Signs/Symptoms) Outcome: Ongoing, Progressing Flowsheets (Taken 09/10/2024914) Mutually Determined Action Steps (Improved Mood Symptoms): acknowledges progress Goal: Optimized Nutrition Intake (Depressive Signs/Symptoms) Outcome: Ongoing, Progressing Flowsheets (Taken 09/10/2024914) Mutually Determined Action Steps (Optimized Nutrition Intake): maintains baseline weight Goal: Improved Psychomotor Symptoms (Depressive Signs/Symptoms) Outcome: Ongoing, Progressing Flowsheets (Taken 09/10/2024914) Mutually Determined Action Steps (Improved Psychomotor Symptoms): adheres to medication regimen Goal: Improved Sleep (Depressive Signs/Symptoms) Outcome: Ongoing, Progressing Flowsheets (Taken 09/10/2024914) Mutually Determined Action Steps (Improved Sleep): sleeps 4-6 hours at night Goal: Enhanced Social, Occupational or Functional Skills (Depressive Signs/Symptoms) Outcome: Ongoing, Progressing Flowsheets (Taken 09/10/2024914) Mutually Determined Action Steps (Enhanced Social, Occupational or Functional Skills): participatesin social skills training * Discharge [facility] Genoveva Erinn Russ - 09/10/2024 8:51 AM EDT [facility]. We could not get through to them. He will need to call them on Friday tos when his next follow-up appointment is. (In the future, he can request a transfer to the [facility] or [facility] if he chooses.) [address] [place] [address] [place] [address]# [phone] FAX# [phone] Continue with all of your medical follow-up and take good care of yourself!!!!! * Care Plan - Kika Rucker RN - 09/10/2024 5:38 AM EDT Problem: Adult Inpatient Plan of Care Goal: Plan of Care Review 09/10/2024537 by iKka Rucker RN Outcome: Ongoing, Progressing 09/09/20242157 by Kika Rucker RN Outcome: Ongoing, Progressing Flowsheets (Taken 09/09/20242157) Outcome Evaluation: verbalized understanding Goal: Patient-Specific Goal (Individualized) 09/10/2024537 by Kika Rucker RN Outcome: Ongoing, Progressing 09/09/20242157 by Kika Rucker RN Outcome: Ongoing, Progressing Goal: Absence of Hospital-Acquired Illness or Injury Outcome: Ongoing, Progressing Goal: Optimal Comfort and Wellbeing Outcome: Ongoing, Progressing Goal: Readiness for Transition of Care Outcome: Ongoing, Progressing Problem: Depressive Signs/Symptoms Goal: Optimized Energy Level (Depressive Signs/Symptoms) 09/10/2024537 by Kika Rucker RN Outcome: Ongoing, Progressing 09/10/2024207 by Kika Rucker RN Outcome: Ongoing, Progressing Flowsheets (Taken 09/09/20242157) Mutually Determined Action Steps (Optimized Energy Level): grooms self without prompting 09/09/20242157 by Kika Rucker RN Outcome: Ongoing, Progressing Flowsheets (Taken 09/09/20242157) Mutually Determined Action Steps (Optimized Energy Level): grooms self without prompting Goal: Optimized Cognitive Function (Depressive Signs/Symptoms) 09/10/2024537 by Kika Rucker RN Outcome: Ongoing, Progressing 09/09/20242157 by Kika Rucker RN Outcome: Ongoing, Progressing Goal: Increased Participation and Engagement (Depressive Signs/Symptoms) 09/10/2024537 by Kika Rucker RN Outcome: Ongoing, Progressing 09/09/20242157 by Kika Rucker RN Outcome: Ongoing, Progressing Goal: Enhanced Self-Esteem and Confidence (Depressive Signs/Symptoms) 09/10/2024537 by Kika Rucker RN Outcome: Ongoing, Progressing 09/09/20242157 by Kika Rucker RN Outcome: Ongoing, Progressing Goal: Improved Mood Symptoms (Depressive Signs/Symptoms) 09/10/2024537 by Kika Rucker RN Outcome: Ongoing, Progressing 09/09/20242157 by Kika Rucker RN Outcome: Ongoing, Progressing Goal: Optimized Nutrition Intake (Depressive Signs/Symptoms) 09/10/2024537 by Kika Rucker RN Outcome: Ongoing, Progressing 09/09/20242157 by Kika Rucker RN Outcome: Ongoing,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 LDL, Calculated 32 <100 mg/dL 1:59 PM EDT [facility] Comment: LDL Cholesterol Reference Range (age [...] than or equal to 12 hours? Unknown 09/09/2024 1:59 PM EDT [facility] Blood Venous blood specimen / Unknown Venipuncture / Unknown 09/09/2024 9:57 AM EDT 09/09/2024 9:57 AM EDT us Vicente Del Valle MD LAB BLOOD ORDERABLES Final Re sult [facility] [address] [place] [address] * Free T4, Plasma (09/09/2024 9:57 AM EDT) Free T4, Plasma 1.3 0.8 - 1.7 ng/dL 09/09/2024 12:47 PM EDT [facility] Blood Venous blood specimen / Unknown Venipuncture / Unknown 09/09/2024 9:57 AM EDT 09/09/2024 9:57 AM EDT Jose Alberto Quiroga MD LAB BLOOD ORDERABLES Final Result Performing Organization Address [facility] Co de Phone Number [facility] [address] [place] [address] * Thyroid Stimulating Hormone, Plasma (09/09/2024 9:57 AM EDT) Thyroid Stimulating Hormone, Plasma 1.42 0.40 - 4.20 uIU/mL 09/09/2024 12:47 PM EDT [facility] Blood Venous blood specimen / Unknown Venipuncture / Unknown 09/09/2024 9:57 AM EDT 09/09/2024 9:57 AM EDT Jose Alberto Quiroga MD LAB BLOOD ORDERABLES Final Result Performing Organization Address City/[facility] Co de Phone Number [facility] [address] [place] [address] * (ABNORMAL) Hemoglobin A1c (09/09/2024 9:57 AM EDT) Hemoglobin A1c 10.7(H) <5.7 % 09/09/2024 1:22 PM EDT [facility] Blood Venous blood specimen / Unknown Venipuncture / Unknown 09/09/2024 9:57 AM EDT 09/09/2024 9:57 AM EDT Narrative [facility] - 09/09/2024 1:22 PM EDT HA1C Interpretive Data: Diagnosis of Diabetes: Diabetic > or = 6.5% Pre-diabetic 5.7 to 6.4% Non-diabetic < or = 5.6% Glycemic Targets for Type I and Type II Diabetics: Non- Adults <7.0% Adults <6.0% Children and Adolescents <7.5% Source: [place] [employer]. Standards of medical care in diabetes,2017. Diabetes Care.2017:40 (suppl 1):S1-S135. us Jose Alberto Quiroga MD LAB BLOOD ORDERABLES Final Result [facility] [address] [place] [address] * (ABNORMAL) CBC w/diff (09/09/2024 9:57 AM EDT) WBC Count 11.41(H) 3.70 - 10.30 10*3/uL LAB HEMATOLOGY METHOD 09/09/2024 12:35 PM EDT [facility] RBC Count 5.13 4.60 - 6.10 10*6/uL LAB HEMATOLOGY METHOD 09/09/2024 12:35 PM EDT [facility] HGB 15.1 13.7 - 17.5 g/dL LAB HEMATOLOGY METHOD 09/09/2024 12:35 PM EDT [facility] HCT 45.3 40.0 - 51.0 % LAB HEMATOLOGY METHOD 09/09/2024 12:35 PM EDT [facility] Platelet Count 172 155 - 369 10*3/uL LAB HEMATOLOGY METHOD 09/09/2024 12:35 PM EDT [facility] MCV 88 79 - 98 fL LAB HEMATOLOGY METHOD 09/09/2024 12:35 PM EDT [facility] MCH 29.4 26.0 - 32.0 pg LAB HEMATOLOGY METHOD 09/09/2024 12:35 PM EDT [facility] MCHC 33.3 30.7 - 35.5 g/dL LAB HEMATOLOGY METHOD 09/09/2024 12:35 PM EDT [facility] RDW 12.9 11.5 - 14.5 % LAB HEMATOLOGY METHOD 09/09/2024 12:35 PM EDT [facility] MPV 10.9 8.8 - 12.5 fL LAB HEMATOLOGY METHOD 09/09/2024 12:35 PM EDT [facility] nRBC 0.0 <=0.0 per 100 WBCs LAB HEMATOLOGY METHOD 09/09/2024 12:35 PM EDT [facility] Differential Type Automated LAB HEMATOLOGY METHOD 09/09/2024 12:35 PM EDT [facility] Neutrophils % 60 % LAB HEMATOLOGY METHOD 09/09/2024 12:35 PM EDT [facility] Lymphocytes % 27 % LAB HEMATOLOGY METHOD 09/09/2024 12:35 PM EDT [facility] Monocytes % 9 % LAB HEMATOLOGY METHOD 09/09/2024 12:35 PM EDT [facility] Eosinophils % 3 % LAB HEMATOLOGY METHOD 09/09/2024 12:35 PM EDT [facility] Basophils % 1 % LAB HEMATOLOGY METHOD 09/09/2024 12:35 PM EDT [facility] Immature Granulocytes % 0 % LAB HEMATOLOGY METHOD 09/09/2024 12:35 PM EDT [facility] Neutrophils Absolute 6.99(H) 1.60 - 6.10 10*3/uL LAB HEMATOLOGY METHOD 09/09/2024 12:35 PM EDT [facility] Lymphocytes Absolute 3.03 1.20 - 3.90 10*3/uL LAB HEMATOLOGY METHOD 09/09/2024 12:35 PM EDT [facility] Monocytes Absolute 0.99(H) 0.30 - 0.90 10*3/uL LAB HEMATOLOGY METHOD 09/09/2024 12:35 PM EDT [facility] Eosinophils Absolute 0.30 0.00 - 0.50 10*3/uL LAB HEMATOLOGY METHOD 09/09/2024 12:35 PM EDT [facility] Basophils Absolute 0.07 0.00 - 0.10 10*3/uL LAB HEMATOLOGY METHOD 09/09/2024 12:35 PM EDT [facility] Immature Granulocytes Absolute 0.03 0.00 - 0.06 10*3/uL LAB HEMATOLOGY METHOD 09/09/2024 12:35 PM EDT [facility] Blood Venous blood specimen / Unknown Venipuncture / Unknown 09/09/2024 9:57 AM EDT 09/09/2024 9:57 AM EDT Narrative [facility] - 09/09/2024 12:35 PM EDT Therapeutic decision making should be based on absolute values, rather than percentages. us Jose Alberto Quiroga MD LAB BLOOD ORDERABLES Final Result [facility] [address] [place] [address] * (ABNORMAL) CMP (09/09/2024 9:57 AM EDT) Pathologist [facility] Glucose, Plasma 109(H) 74 - 99 mg/dL 09/09/2024 12:47 PM EDT [facility] BUN, Plasma 13 7 - 21 mg/dL 09/09/2024 12:47 PM EDT [facility] Creatinine, Plasma 0.99 0.70 - 1.20 mg/dL 09/09/2024 12:47 PM EDT [facility] BUN/Creatinine Ratio 13 09/09/2024 12:47 PM EDT [facility] Sodium, Plasma 138 136 - 145 mmol/L 09/09/2024 12:47 PM EDT [facility] Potassium, Plasma 4.1 3.6 - 4.9 mmol/L 09/09/2024 12:47 PM EDT [facility] Chloride, Plasma 104 97 - 107 mmol/L 09/09/2024 12:47 PM EDT [facility] CO2, Plasma 22 22 - 29 mmol/L 09/09/2024 12:47 PM EDT [facility] Anion Gap 12 6 - 16 mmol/L 09/09/2024 12:47 PM EDT [facility] Total Calcium, Plasma 9.0 8.9 - 10.2 mg/dL 09/09/2024 12:47 PM EDT [facility] Total Protein 7.3 6.3 - 7.9 g/dL 09/09/2024 12:47 PM EDT [facility] Albumin, Plasma 4.1 3.5 - 5.2 g/dL 09/09/2024 12:47 PM EDT [facility] AST, Plasma 18 10 - 50 U/L 09/09/2024 12:47 PM EDT [facility] ALT, Plasma 10 10 - 50 U/L 09/09/2024 12:47 PM EDT [facility] Alkaline Phosphatase, Plasma 56 40 - 115 U/L 09/09/2024 12:47 PM EDT [facility] Total Bilirubin, Plasma 0.2 0.2 - 1.1 mg/dL 09/09/2024 12:47 PM EDT [facility] eGFRcr 92.8 mL/min/1.7 3m*2 09/09/2024 12:47 PM EDT [facility] Comment:Reported eGFRcr in m L/min/1.73m2 is based the CKD-EPI 2020 equation that does not use a race coefficient. Blood Venous blood specimen / Unknown Venipuncture / Unknown 09/09/2024 9:57 AM EDT 09/09/2024 9:57 AM EDT us Jose Alberto Quiroga MD LAB BLOOD ORDERABLES Final Result [facility] [address] [place] [address] documented in this encounter Visit Diagnoses Diagnosis Borderline personality disorder (CMS/HCC)- Primary Borderline personality disorder Suicide attempt (CMS/HCC) Suicide and self-inflicted injury by unspecified means Diabetes (CMS/HCC) Type II or unspecified type diabetes mellitus without mention of complication, not stated as uncontrolled Seizure disorder (CMS/HCC) Unspecified epilepsy without mention of intractable epilepsy History of ischemic stroke HTN (hypertension) Unspecified essential hypertension HLD (hyperlipidemia) Other and unspecified hyperlipidemia Chronic pain Other chronic pain Nicotine use disorder Tobacco use disorder documented in this encounter Admitting Diagnoses Diagnosis Mood disorder (CMS/HCC) Unspecified episodic mood disorder documented in this encounter Administered Medications Inactive Administered Medications - up to 3 most recent administrations Medication Order MAR Action Action Date Dose Rate Site acetaminophen (Tylenol) tablet 650 mg 650 mg, Oral, Every 6 hours PRN, Starting on Debi 09/09/24 at 0906, Until Fri09/10/24 at 1247, Routine, mild pain, moderate pain Given 09/10/2024 5:56 AM EDT 650 mg aluminum & magnesium hydroxide-simethicone (Mylanta) 200-200-20 MG/5ML oral suspension 10 mL 10 mL, Oral, Every 6 hours PRN, Starting on Debi 09/09/24 at 0906, Until Fri09/10/24 at 1247, Routine, indigestion, heartburnIndications:UGI Symptoms baclofen (Lioresal) tablet 10 mg 10 mg, Oral, 3 times daily, First dose on Debi 09/09/24 at 0945, Until Discontinued, Routine Given 09/09/2024 10:03 AM EDT 10 mg baclofen (Lioresal) tablet 10 mg 10 mg, Oral, 4 times daily PRN, Starting on Fri09/09/24 at 1400, Until Fri09/10/24 at 1247, Routine, muscle spasms Given 09/10/2024 5:56 AM EDT 10 mg chlorproMAZINE (Thorazine) injection 100 mg 100 mg, Intramuscular, Every 8 hours PRN, Starting on Fri09/09/24 at 1453, Until Fri09/10/24 at 1247, Routine, Agitation Given 09/09/2024 3:22 PM EDT 100 mg Right Deltoid chlorproMAZINE (Thorazine) tablet 100 mg 100 mg, Oral, Every 8 hours PRN, Starting on Fri09/09/24 at 1453, Until Fri09/10/24 at 1247, Routine, Agitation clopidogrel (Plavix) tablet 75 mg 75 mg, Oral, Daily, First dose on Fri09/09/24 at 1445, Until Discontinued, Routine Given 09/10/2024 8:30 AM EDT 75 mg Given 09/09/2024 3:20 PM EDT 75 mg dextrose 10 % (D10W) bolus 125 mL 125 mL, Intravenous, Every 15 min PRN, Starting on Fri09/09/24 at 1402, Until Fri09/10/24 at 1247, Administer over 15 Minutes, Routine, low blood sugar BG 51-89 mg/dL dextrose 10 % (D10W) bolus 250 mL 250 mL, Intravenous, Every 15 min PRN, Starting on Fri09/09/24 at 1402, Until Fri09/10/24 at 1247, Administer over 15 Minutes, Routine, PRN low blood sugar BG =/<50 mg/dL empagliflozin (Jardiance) tablet 25 mg 25 mg, Oral, Daily, First dose on Fri09/09/24 at 1445, Until Discontinued, RoutineIndications:Type 2 Diabetes Mellitus Given 09/10/2024 8:34 AM EDT 25 mg Given 09/09/2024 3:18 PM EDT 25 mg fenofibrate (Tricor) tablet 48 mg 48 mg, Oral, Daily, First dose on Fri09/09/24 at 1445, Until Discontinued, Routine Given 09/10/2024 8:34 AM EDT 48 mg Given 09/09/2024 3:18 PM EDT 48 mg folic acid (Folvite) tablet 1 mg 1 mg, Oral, Daily, First dose on Fri09/09/24 at 1445, Until Discontinued, Routine Given 09/10/2024 8:30 AM EDT 1 mg Given 09/09/2024 3:19 PM EDT 1 mg glucagon (human recombinant) injection 1 mg 1 mg, Intramuscular, Every 15 min PRN, Starting on Fri09/09/24 at 1402, Until Fri09/10/24 at 1247, Routine, low blood sugar per Hypoglycemia Prevention and Treatment protocol glucose (Glutose) 40 % oral gel 15-30 grams of glucose 15-30 grams of glucose, Sublingual, Every 15 min PRN, Starting on Fri09/09/24 at 1402, Until Fri09/10/24 at 1247, Routine, low blood sugar, per Hypoglycemia Prevention and Treatment protocol HYDROcodone-acetaminophen ([place]) 5-325 MG per tablet 5 mg of hydrocodone 5 mg of hydrocodone, Oral, Once, 1 dose, On Fri09/09/24 at 1015, STAT Given 09/09/2024 10:04 AM EDT 5 mg of hydrocodone hydrOXYzine pamoate (Vistaril) capsule 50 mg 50 mg, Oral, Every 6 hours PRN, Starting on Fri09/09/24 at 0906, Until Fri09/10/24 at 1247, Routine, anxietyIndications:Anxiet y insulin lispro (Admelog) 100 units/mL injection - Correction - Standard Dose 0-5 Units, Subcutaneous, 3 times daily with meals, First dose on Fri09/09/24 at 1730, Until Discontinued, Routine Given 09/10/2024 8:28 AM EDT 4 Units Left Upper Arm (Back) Given 09/09/2024 5:06 PM EDT 2 Units Le ft Upper Arm (Back) insulin lispro (Admelog) injection - Correction - Nighttime Dose 0-3 Units, Subcutaneous, 2 times nightly (2100 & 0300), First dose on Fri09/09/24 at 2100, Until Discontinued, Routine Given 09/09/2024 8:42 PM EDT 1 Units Left Upper Arm (Back ) isosorbide mononitrate ER (Imdur) 24 hr tablet 60 mg 60 mg, Oral, Daily, First dose on Fri09/09/24 at 1445, Until Discontinued, Routine Given 09/10/2024 8:31 AM EDT 60 mg Given 09/09/2024 3:20 PM EDT 60 mg levETIRAcetam (Keppra) tablet 1,500 mg 1,500 mg, Oral, 2 times daily, First dose on Fri09/09/24 at 0945, Until Discontinued, Routine Given 09/10/2024 8:30 AM EDT 1,500 mg Given 09/09/2024 8:43 PM EDT 1,500 mg Given 09/09/2024 10:03 AM EDT 1,500 mg LORazepam (Ativan) tablet 0.5 mg 0.5 mg, Oral, 3 times daily, First dose (after last modification) on Fri09/09/24 at 2100, Until Discontinued, Routine Given 09/10/2024 6:04 AM EDT 0.5 mg Given 09/09/2024 8:43 PM EDT 0.5 mg LORazepam (Ativan) tablet 1 mg 1 mg, Oral, 3 times daily, First dose on Fri09/09/24 at 1445, Until Discontinued, Routine Given 09/09/2024 3:19 PM EDT 1 mg losartan (Cozaar) tablet 50 mg 50 mg, Oral, Daily, First dose on Fri09/09/24 at 1445, Until Discontinued, Routine Given 09/10/2024 8:31 AM EDT 50 mg Given 09/09/2024 3:20 PM EDT 50 mg magnesium hydroxide (Milk of Magnesia) 400 MG/5ML suspension 10 mL 10 mL, Oral, Daily PRN, Starting on Fri09/09/24 at 0906, Until Fri09/10/24 at 1247, Routine, constipationIndications:Constipation melatonin tablet 6 mg 6 mg, Oral, Nightly PRN, Starting on Fri09/09/24 at 1348, Until Fri09/10/24 at 1247, Routine, sleep metoprolol succinate XL (Toprol-XL) 24 hr tablet 50 mg 50 mg, Oral, Daily, First dose on Fri09/09/24 at 1445, Until Discontinued Given 09/10/2024 8:31 AM EDT 50 mg Given 09/09/2024 3:20 PM EDT 50 mg nicotine (Nicoderm CQ) 14 MG/24HR patch 1 patch 1 patch, Transdermal, Daily, First dose on Fri09/09/24 at 1715, Until Discontinued, Routine Medication Applied 09/10/2024 8:29 AM EDT 1 patch Other Medication Applied 09/09/2024 5:06 PM EDT 1 patch Right Arm oxyCODONE (Roxicodone) immediate release tablet 10 mg 10 mg, Oral, 3 times daily, First dose (after last modification) on Fri09/09/24 at 1600, Until Discontinued, Routine Given 09/10/2024 8:30 AM EDT 10 mg Given 09/10/2024 6:41 AM EDT 10 mg Given 09/09/2024 8:43 PM EDT 10 mg pregabalin (Lyrica) capsule 150 mg 150 mg, Oral, 3 times daily, First dose on Fri09/09/24 at 1600, Until Discontinued Given 09/10/2024 8:30 AM EDT 150 mg Given 09/09/2024 8:43 PM EDT 150 mg Given 09/09/2024 3:18 PM EDT 150 mg ranolazine (Ranexa) 12 hr tablet 500 mg 500 mg, Oral, 2 times daily, First dose on Fri09/09/24 at 2100, Until Discontinued, Routine Given 09/10/2024 8:33 AM EDT 500 mg Given 09/09/2024 8:43 PM EDT 500 mg rosuvastatin (Crestor) tablet 10 mg 10 mg, Oral, Daily, First dose on Fri09/10/24 at 0900, Until Discontinued Given 09/10/2024 8:30 AM EDT 10 mg topiramate (Topamax) tablet 25 mg 25 mg, Oral, Nightly, First dose on Fri09/09/24 at 2100, Until Discontinued, Routine Given 09/09/2024 8:43 PM EDT 25 mg documented in this encounter Active and Recently Administered Medications Times are shown in EDT. Scheduled Medication Order 09/08/2024 09/09/2024 09/10/2024 baclofen (Lioresal) tablet 10 mg (CANCELED) 10 mg, Oral, 3 times daily, First dose on Fri09/09/24 at 0945, Until Discontinued, Routine 1003 (Given - Provider: Juan Antonio Woodruff RN) clopidogrel (Plavix) tablet 75 mg 75 mg, Oral, Daily, First dose on Debi 09/09/24 at 1445, Until Discontinued, Routine 1520 (Given - Provider: Wan Horne) 0830 (Given - Provider: Tri Alba RN) empagliflozin (Jardiance) tablet 25 mg 25 mg, Oral, Daily, First dose on Debi 09/09/24 at 1445, Until Discontinued, Routine 1518 (Given - Provider: Wan Horne) 0834 (Given - Provider: Tri Alba RN) fenofibrate (Tricor) tablet 48 mg 48 mg, Oral, Daily, First dose on Debi 09/09/24 at 1445, Until Discontinued, Routine 1518 (Given - Provider: Wan Horne) 0834 (Given - Provider: Tri Alba RN) folic acid (Folvite) tablet 1 mg 1 mg, Oral, Daily, First dose on Debi 09/09/24 at 1445, Until Discontinued, Routine 1519 (Given - Provider: Wan Horne) 0830 (Given - Provider: Tri Alba RN) HYDROcodone-acetaminophen ([place]) 5-325 MG per tablet 5 mg of hydrocodone (COMPLETED) 5 mg of hydrocodone, Oral, Once, 1 dose, On Debi 09/09/24 at 1015, STAT 1004 (Given - Provider: Juan Antonio Woodruff RN) insulin lispro (Admelog) 100 units/mL injection - Correction - Standard Dose 0-5 Units, Subcutaneous, 3 times daily with meals, First dose on Debi 09/09/24 at 1730, Until Discontinued, Routine 1706 (Given - Provider: Wan Horne) 0828 (Given - Provider: Tri Alba RN)1230 (Canceled Entry - Provider: Automatic Discharge Provider - Comment: Automatically canceled at discontinue of medication order) insulin lispro (Admelog) injection - Correction - Nighttime Dose 0-3 Units, Subcutaneous, 2 times nightly (2100 & 0300), First dose on Debi 09/09/24 at 2100, Until Discontinued, Routine 2042 (Given - Provider: Kika Rucker RN) 0226 (Not Given - Provider: Kika Rucker RN - Reason: Order parameters not met) isosorbide mononitrate ER (Imdur) 24 hr tablet 60 mg 60 mg, Oral, Daily, First dose on Debi 09/09/24 at 1445, Until Discontinued, Routine 1520 (Given - Provider: Wan Horne) 0831 (Given - Provider: Tri Alba, PARMINDER) levETIRAcetam (Keppra) tablet 1,500 mg 1,500 mg, Oral, 2 times daily, First dose on Fri09/09/24 at 0945, Until Discontinued, Routine 1003 (Given - Provider: Juan Antonio Woodruff RN)2043 (Given - Provider: Kika Rucker, PARMINDER) 0830 (Given - Provider: Tri Alba, PARMINDER) LORazepam (Ativan) tablet 0.5 mg 0.5 mg, Oral, 3 times daily, First dose (after last modification) on Fri09/09/24 at 2100, Until Discontinued, Routine 204 (Given - Provider: Kika Rucker RN) 0604 (Given - Provider: Kika Rucker RN) LORazepam (Ativan) tablet 1 mg (CANCELED) 1 mg, Oral, 3 times daily, First dose on Fri09/09/24 at 1445, Until Discontinued, Routine 1519 (Given - Provider: Wan Horne) losartan (Cozaar) tablet 50 mg 50 mg, Oral, Daily, First dose on Fri09/09/24 at 1445, Until Discontinued, Routine 1520 (Given - Provider: Wan Horne) 0831 (Given - Provider: Tri Alba, PARMINDER) metoprolol succinate XL (Toprol-XL) 24 hr tablet 50 mg 50 mg, Oral, Daily, First dose on Fri09/09/24 at 1445, Until Discontinued 1520 (Given - Provider: Wan Horne) 0831 (Given - Provider: Tri Alba, PARMINDER) nicotine (Nicoderm CQ) 14 MG/24HR patch 1 patch 1 patch, Transdermal, Daily, First dose on Fri09/09/24 at 1715, Until Discontinued, Routine 1706 (Medication Applied - Provider: Wan Horne) 0829 (Medication Applied - Provider: Tri Alba, PARMINDER - Comment: Left scapula) oxyCODONE (Roxicodone) immediate release tablet 10 mg 10 mg, Oral, 3 times daily, First dose (after last modification) on Fri09/09/24 at 1600, Until Discontinued, Routine 1517 (Given - Provider: Wan Horne)2042 (Given - Provider: Kika Rucker RN) 06 (Given - Provider: Kika Rucker RN)08 (Given - Provider: Tri Alba, RN) pregabalin (Lyrica) capsule 150 mg 150 mg, Oral, 3 times daily, First dose on Fri09/09/24 at 1600, Until Discontinued 1517 (Given - Provider: Wan Horne)2042 (Given - Provider: Kika Rucker RN) 08 (Given - Provider: Tri Alba, RN) ranolazine (Ranexa) 12 hr tablet 500 mg 500 mg, Oral, 2 times daily, First dose on Fri09/09/24 at 2100, Until Discontinued, Routine 2042 (Given - Provider: Kika Rucker RN) 08 (Given - Provider: Tri Alba, RN) rosuvastatin (Crestor) tablet 10 mg 10 mg, Oral, Daily, First dose on Fri09/10/24 at 0900, Until Discontinued 829 (Given - Provid er: Tri Alba RN) topiramate (Topamax) tablet 25 mg 25 mg, Oral, Nightly, First dose on Fri09/09/24 at 2100, Until Discontinued, Routine 2042 (Given - Provider: Kika Rucker RN) PRN Medication Order 09/08/2024 09/09/2024 09/10/2024 acetaminophen (Tylenol) tablet 650 mg 650 mg, Oral, Every 6 hours PRN, Starting on Fri09/09/24 at 0906, Until Fri09/10/24 at 1247, Routine, mild pain, moderate pain 0556 (Given - Provid er: Kika Rucker RN) aluminum & magnesium hydroxide-simethicone (Mylanta) 200-200-20 MG/5ML oral suspension 10 mL 10 mL, Oral, Every 6 hours PRN, Starting on Fri09/09/24 at 0906, Until Fri09/10/24 at 1247, Routine, indigestion, heartburn baclofen (Lioresal) tablet 10 mg 10 mg, Oral, 4 times daily PRN, Starting on Fri09/09/24 at 1400, Until Fri09/10/24 at 1247, Routine, muscle spasms 0556 (Given - Provid er: Kika Rucker RN) chlorproMAZINE (Thorazine) injection 100 mg(Linked Group 1) 100 mg, Intramuscular, Every 8 hours PRN, Starting on Debi 09/09/24 at 1453, Until Fri09/10/24 at 1247, Routine, Agitation 1522 (Given - Provider: Wan Horne) chlorproMAZINE (Thorazine) tablet 100 mg(Linked Group 1) 100 mg, Oral, Every 8 hours PRN, Starting on Debi 09/09/24 at 1453, Until Fri09/10/24 at 1247, Routine, Agitation 1522 (See Alternative - Provider: Wan Horne) dextrose 10 % (D10W) bolus 125 mL(Linked Group 2) 125 mL, Intravenous, Every 15 min PRN, Starting on Debi 09/09/24 at 1402, Until Fri09/10/24 at 1247, Administer over 15 Minutes, Routine, low blood sugar BG 51-89 mg/dL dextrose 10 % (D10W) bolus 250 mL(Linked Group 2) 250 mL, Intravenous, Every 15 min PRN, Starting on Debi 09/09/24 at 1402, Until Fri09/10/24 at 1247, Administer over 15 Minutes, Routine, PRN low blood sugar BG =/<50 mg/dL glucagon (human recombinant) injection 1 mg(Linked Group 2) 1 mg, Intramuscular, Every 15 min PRN, Starting on Debi 09/09/24 at 1402, Until Fri09/10/24 at 1247, Routine, low blood sugar per Hypoglycemia Prevention and Treatment protocol glucose (Glutose) 40 % oral gel 15-30 grams of glucose(Linked Group 2) 15-30 grams of glucose, Sublingual, Every 15 min PRN, Starting on Debi 09/09/24 at 1402, Until Fri09/10/24 at 1247, Routine, low blood sugar, per Hypoglycemia Prevention and Treatment protocol hydrOXYzine pamoate (Vistaril) capsule 50 mg 50 mg, Oral, Every 6 hours PRN, Starting on Debi 09/09/24 at 0906, Until Fri09/10/24 at 1247, Routine, anxiety magnesium hydroxide (Milk of Magnesia) 400 MG/5ML suspension 10 mL 10 mL, Oral, Daily PRN, Starting on Fri09/09/24 at 0906, Until Fri09/10/24 at 1247, Routine, constipation melatonin tablet 6 mg 6 mg, Oral, Nightly PRN, Starting on Fri09/09/24 at 1348, Until Fri09/10/24 at 1247, Routine, sleep Linked Groups Order Group 1: chlorproMAZINE (Thorazine) tablet 100 mgJump to med 100 mg, Oral, Every 8 hours PRN, Starting on Fri09/09/24 at 1453, Until Fri09/10/24 at 1247, Routine, Agitation Or chlorproMAZINE (Thorazine) injection 100 mgJump to med 100 mg, Intramuscular, Every 8 hours PRN, Starting on Fri09/09/24 at 1453, Until Fri09/10/24 at 1247, Routine, Agitation Group 2: glucose (Glutose) 40 % oral gel 15-30 grams of glucoseJump to med 15-30 grams of glucose, Sublingual, Every 15 min PRN, Starting on Fri09/09/24 at 1402, Until Fri09/10/24 at 1247, Routine, low blood sugar, per Hypoglycemia Prevention and Treatment protocol Or dextrose 10 % (D10W) bolus 125 mLJump to med 125 mL, Intravenous, Every 15 min PRN, Starting on Fri09/09/24 at 1402, Until Fri09/10/24 at 1247, Administer over 15 Minutes, Routine, low blood sugar BG 51-89 mg/dL Or dextrose 10 % (D10W) bolus 250 mLJump to med 250 mL, Intravenous, Every 15 min PRN, Starting on Fri09/09/24 at 1402, Until Fri09/10/24 at 1247, Administer over 15 Minutes, Routine, PRN low blood sugar BG =/<50 mg/dL Or glucagon (human recombinant) injection 1 mgJump to med 1 mg, Intramuscular, Every 15 min PRN, Starting on Fri09/09/24 at 1402, Until Fri09/10/24 at 1247, Routine, low blood sugar per Hypoglycemia Prevention and Treatment protocol documented in this encounter Additional Health Concerns Assessment Noted Time A fall risk assessment has been complete d for the patient 01/01/2024 9:51 AM EDT A Body Mass Index follow-up plan has been documented for the patient 09/10/2024 9:38 AM EDT documented as of this encounter Care Teams Line Puller Relationship Specialty Start Date End Date Shamika Roy APRN [address] [place] [address] PCP - General 09/08/23 documented as of this encounter
[2024-09-21] VITALS (73 sets, daily range): BP systolic 76–158; BP diastolic 44–97; PULSE 26–78; RESP 8–25; TEMP 35.4–38; O2SAT 94–100; BMI 33.2; BMI 32.1
--- NOTE | 2024-09-21 07:50 | ECG_ITS ---
APPROVED REPORT Exam: Resting ECG HR:63 bpm ECG Measurements Heart Rate 63 AXES WV 177 P 24 QRSd 98 QRS 66 QT 407 T 83 QTc 415 Conclusion SINUS RHYTHM NORMAL ECG UNCONFIRMED REPORT Electronically signed by : Gus Winters, 09/21/2024 15:28:38
[2024-09-21] MEDS: ETOMIDATE 40MG/20ML VIAL 30 MG IV (07:51)
[2024-09-21] MEDS: SUCCINYLCHOLINE 20MG/ML 10 ML MDV 150 MG IV (07:52)
--- NOTE | 2024-09-21 07:59 | HMH.EDGENADL ---
Discharge Plan Disposition Chief Complaint: Overdose Prescriptions Prescriptions: No Action potassium chloride 10 mEq capsule, extended release 10 meq PO DAILY trazodone 50 mg tablet 50 mg PO HS Patient Comments: TAKE 1 TABLET BY MOUTH EVERY NIGHT AT BEDTIME clopidogrel [Plavix] 75 mg tablet 75 mg PO DAILY folic acid 400 mcg tablet 400 mg PO DAILY Patient Comments: TAKE 1 TABLET BY MOUTH ONCE DAILY pantoprazole [Protonix] 20 mg tablet,delayed release (DR/EC) 20 mg PO DAILY PRN (Reason: Heartburn) insulin aspart U-100 [Novolog U-100 Insulin aspart] 100 unit/mL solution 1 sliding scale dose SQ USEASDIRECTD (DME) insulin syringe-needle U-100 [BD Insulin Syringe Ultra-Fine] 1 mL 31 gauge x 5/16 syringe See Rx Instructions .ROUTE .MEDSUPPLY Qty: 10 Patient Comments: USE DIRECTED SUBCUTANEOUS FOUR TIMES DAILY Rx Instructions: As directed fenofibrate nanocrystallized 48 mg tablet 48 mg PO HS baclofen 10 mg tablet 10 mg PO Q6HP PRN (Reason: muscle spasms) calcitriol 0.25 mcg capsule 0.25 mcg PO MOWEFR Patient Comments: TAKE 1 CAPSULE BY MOUTH 3 TIMES A WEEK Rx Instructions: Patient takes every other day in a week. Jardiance 25 mg tablet 25 mg PO DAILY Patient Comments: TAKE 1 TABLET BY MOUTH DAILY (DME) FreeStyle Eugenie 3 Sensor Device See Rx Instructions .ROUTE .MEDSUPPLY Qty: 1 Patient Comments: USE DIRECTED EVERY 15 DAYS Rx Instructions: As directed (DME) FreeStyle Eugenie 2 [place] Misc See Rx Instructions .ROUTE .MEDSUPPLY Qty: 1 Patient Comments: USE DIRECTED Rx Instructions: As directed (DME) blood pressure monitor [Blood Pressure Kit] Kit See Rx Instructions .Route Qty: 1 0RF Rx Instructions: As directed ranolazine 1,000 mg tablet extended release 12 hr 1,000 mg PO BID Qty: 60 2RF isosorbide mononitrate 60 mg tablet extended release 24 hr 60 mg PO DAILY Qty: 90 3RF insulin glargine [Lantus U-100 Insulin] 100 unit/mL solution 90 unit SQ BID Patient Comments: ADMINISTER 50 UNITS UNDER THE SKIN TWICE DAILY FOR 30 DAYS losartan 50 mg tablet 50 mg PO DAILY Patient Comments: TAKE ONE TABLET BY MOUTH DAILY topiramate 25 mg tablet 25 mg PO HS Patient Comments: TAKE ONE TABLET BY MOUTH AT BEDTIME levetiracetam 750 mg tablet 1,500 mg PO BID Patient Comments: TAKE TWO TABLETS BY MOUTH TWO TIMES A DAY lorazepam 1 mg tablet 1 mg PO TID Patient Comments: TAKE ONE TABLET BY MOUTH THREE TIMES A DAY rosuvastatin 10 mg tablet 10 mg PO DAILY Patient Comments: TAKE ONE TABLET BY MOUTH EVERY DAY pregabalin 150 mg capsule 150 mg PO TID Patient Comments: TAKE ONE CAPSULE BY MOUTH THREE TIMES A DAY oxycodone 10 mg tablet 10 mg PO Q4HP Patient Comments: TAKE ONE TABLET BY MOUTH EVERY FOUR HOURS, MAXIMUM OF SIX TABLETS A DAY FOR PAIN promethazine 25 mg Tablet 25 mg PO Q6H PRN (Reason: Nausea) metoprolol succinate 100 mg tablet extended release 24 hr 100 mg PO DAILY Rx Instructions: TAKE 1 TABLET BY MOUTH DAILY Referrals Follow up/Referrals: Provider,Referral, MD [Primary Care Provider, Medical] - See instructions Clinical Impressions Clinical Impression: Suicide attempt, Insulin overdose, Baclofen overdose Instructions Patient Instructions: Subjective Opioid Withdrawal Scale (SOWS) Print Language Print Language: [place] Discharge ED Provider: Tim Winters General Adult HPI General Chief complaint: Overdose Stated complaint: SI Time Seen by Provider: 09/21/24 07:56 History of Present Illness HPI narrative: Patient is a 49-year-old male well-known to our emergency department has had multiple suicide attempts in the past most recently just a few weeks ago. Presents today after an intentional overdose according to his family. Patient presents unresponsive by EMS so history is unable to be obtained from him. From historical standpoint we believe that he took a significant amount of insulin as well as baclofen. But it is unclear as to exactly what he did. Came in on nonrebreather and with a nasal trumpet with a GCS of 3. Related Data Home Medications ?Medication ?Instructions ?Recorded ?Confirmed levetiracetam 750 mg tablet 1,500 mg PO BID Seizures 08/15/22 09/16/24 lorazepam 1 mg tablet 1 mg PO TID Seizures 08/15/22 09/16/24 losartan 50 mg tablet 50 mg PO DAILY Hypertension 08/15/22 09/16/24 pregabalin 150 mg capsule 150 mg PO TID Nerve Pain 08/15/22 09/16/24 rosuvastatin 10 mg tablet 10 mg PO DAILY Cholesterol 08/15/22 09/16/24 topiramate 25 mg tablet 25 mg PO HS Headache prevention 08/15/22 09/16/24 insulin glargine 100 unit/mL 90 unit SQ BID 04/14/23 09/16/24 subcutaneous solution (Lantus U-100 Insulin) clopidogrel 75 mg tablet (Plavix) 75 mg PO DAILY 05/06/23 09/16/24 fenofibrate nanocrystallized 48 mg 48 mg PO HS 05/06/23 09/16/24 tablet folic acid 400 mcg tablet 400 mg PO DAILY 05/06/23 09/16/24 insulin aspart U-100 100 unit/mL 1 sliding scale dose SQ 05/06/23 09/16/24 subcutaneous solution (Novolog USEASDIRECTD U-100 Insulin aspart) insulin syringe-needle U-100 1 mL #10 ea 05/06/23 09/16/24 31 gauge x 5/16 (BD Insulin Syringe Ultra-Fine) pantoprazole 20 mg tablet,delayed 20 mg PO DAILY PRN Heartburn 05/06/23 09/16/24 release (Protonix) potassium chloride 10 mEq 10 meq PO DAILY 05/06/23 09/16/24 capsule,extended release trazodone 50 mg tablet 50 mg PO HS 05/06/23 09/16/24 baclofen 10 mg tablet 10 mg PO Q6HP PRN muscle spasms 06/17/23 09/16/24 promethazine 25 mg tablet 25 mg PO Q6H PRN Nausea 01/12/24 09/16/24 calcitriol 0.25 mcg capsule 0.25 mcg PO MOWEFR 03/24/24 09/16/24 empagliflozin 25 mg tablet 25 mg PO DAILY 03/24/24 09/16/24 (Jardiance) blood-glucose sensor (FreeStyle #1 ea 07/26/24 09/16/24 Eugenie 3 Sensor device) flash glucose scanning reader #1 ea 07/26/24 09/16/24 (FreeStyle Eugenie 2 [place]) metoprolol succinate 100 mg 100 mg PO DAILY 08/02/24 09/16/24 tablet,extended release 24 hr oxycodone 10 mg tablet 10 mg PO Q4HP Moderate Pain (Scale 08/23/24 09/16/24 Score 7/10) Previous Rx's ?Medication ?Instructions ?Recorded isosorbide mononitrate 60 mg 60 mg PO DAILY #90 tabs 08/23/24 tablet,extended release 24 hr blood pressure monitor (Blood #1 ea 09/16/24 Pressure Kit) ranolazine 1,000 mg 1,000 mg PO BID #60 tabs 09/16/24 tablet,extended release,12 hr Allergies Allergy/AdvReac Type Severity Reaction Status Date / Time aspirin Allergy Severe Anaphylaxis Verified 09/16/24 10:31 ibuprofen (From Motrin) Allergy Severe Anaphylaxis Verified 09/16/24 10:31 naproxen (From Aleve) Allergy Severe Anaphylaxis Verified 09/16/24 10:31 NSAIDS (Non-Steroidal Allergy Severe Anaphylaxis Verified 09/16/24 10:31 Anti-Inflamma bee venom protein (honey bee) Allergy Anaphylaxis Verified 09/16/24 10:31 metoclopramide (From Reglan) AdvReac Intermediate Agitated Verified 09/16/24 10:31 midazolam (From Versed) AdvReac Verified 09/16/24 10:31 [facility] Disclaimer: The information contained in this section may have been updated after the patient was seen, as this information can be updated by other users. Medical History Depression Anxiety SOB (shortness of breath) Chest pain Abnormal findings on diagnostic imaging of heart and coronary circulation Abnormal nuclear cardiac imaging test History of tonsillitis Diabetes CVA (cerebral vascular accident) Skin induration Deviated septum Right maxillary sinus opacification Headache Chronic sinusitis Right sided facial pain Pain due to onychomycosis of toenail Neuropathy involving both lower extremities Bilateral foot pain Nail fungus Surgical History History of back surgery History of colon resection History of appendectomy History of laparotomy Family History Other Family history of diabetes mellitus Social History Smoking Status: Unknown if ever smoked alcohol intake: never substance use type: denies use current occupational status: retired Travel in the last 8 weeks?: None caffeine: No Have you lived/traveled outside US in past 30 days?: No Contact w/someone who lives/traveled outside US past 30 days?: No Exposure to someone with infectious disease in past 14 days?: No Do you have a fever (greater than 100.4 F or 38 C)?: No Have you tested positive for COVID-19?: No Exposed to someone with COVID-19 in past 14 days?: No Do you have a sore throat?: No Do you have a cough?: No Do you have any weakness?: No Do you have any diarrhea?: No Are you experiencing any unusual bleeding?: No Do you have any muscle aches/pain?: No Do you have any abdominal pain?: No Are you experiencing loss of taste or smell?: No Other Medical History Have you received the Flu Vaccine for this season: No Have you received the Pneumonia Vaccine: No ROS Obtained: Yes All systems reviewed & no additional complaints except as documented Physical Exam General General appearance: obtunded (GCS of 3) Respiratory Respiratory exam: Present normal lung sounds bilaterally Cardiovascular Cardiovascular exam: Present regular rate Neurological Exam Neurological exam: Present other (GCS of 3) Medical Decision Making Medical Records Screening: Per USPSTF and CDC recommendations, given the prevalence of disease in our region, it is our hospital?s policy to screen for HIV and viral Hepatitis for all patients aged 18 and over and those with ongoing risk factors. Len Inquiry Pt receiving controlled substance: No Vital Signs: 09/21/24 07:48 09/21/24 08:00 09/21/24 08:11 Temperature 98.2 F 95.7 F L 98.6 F Temperature Source Core Pulse Rate 71 67 Pulse Rate [Left Radial] 69 Respiratory Rate 8 L 11 L 17 Blood Pressure 76/47 L 105/64 L Blood Pressure [Right Arm] 141/73 H Blood Pressure Mean [Right Arm] 95 02 Sat by Pulse Oximetry 100 100 100 Oxygen Delivery Method Ambu-Bag Mechanical Ventilation Mechanical Ventilation Fraction of Inspired Oxygen 100 09/21/24 08:15 09/21/24 08:17 09/21/24 08:20 Temperature 98.6 F 98.8 F Temperature Source Pulse Rate Pulse Rate [Left Radial] Respiratory Rate 17 21 19 Blood Pressure 125/69 129/70 Blood Pressure [Right Arm] Blood Pressure Mean [Right Arm] 02 Sat by Pulse Oximetry 100 100 Oxygen Delivery Method Mechanical Ventilation Mechanical Ventilation Fraction of Inspired Oxygen 50 09/21/24 08:25 09/21/24 08:30 09/21/24 08:35 Temperature 98.8 F 98.8 F 98.8 F Temperature Source Pulse Rate 64 63 63 Pulse Rate [Left Radial] Respiratory Rate 18 16 14 Blood Pressure 133/69 131/70 127/67 Blood Pressure [Right Arm] Blood Pressure Mean [Right Arm] 02 Sat by Pulse Oximetry 100 100 100 Oxygen Delivery Method Mechanical Ventilation Mechanical Ventilation Mechanical Ventilation Fraction of Inspired Oxygen 09/21/24 08:40 09/21/24 08:45 09/21/24 08:50 Temperature 98.8 F 98.6 F 98.6 F Temperature Source Pulse Rate 61 59 L 60 Pulse Rate [Left Radial] Respiratory Rate 14 13 17 Blood Pressure 140/69 150/76 H 148/75 H Blood Pressure [Right Arm] Blood Pressure Mean [Right Arm] 02 Sat by Pulse Oximetry 100 100 100 Oxygen Delivery Method Mechanical Ventilation Mechanical Ventilation Mechanical Ventilation Fraction of Inspired Oxygen 09/21/24 08:55 09/21/24 09:00 09/21/24 09:15 Temperature 98.6 F 98.6 F 98.4 F Temperature Source Pulse Rate 59 L 59 L 56 L Pulse Rate [Left Radial] Respiratory Rate 17 13 14 Blood Pressure 147/71 H 144/73 H 158/74 H Blood Pressure [Right Arm] Blood Pressure Mean [Right Arm] 02 Sat by Pulse Oximetry 100 100 100 Oxygen Delivery Method Mechanical Ventilation Mechanical Ventilation Mechanical Ventilation Fraction of Inspired Oxygen 09/21/24 09:21 09/21/24 09:26 09/21/24 09:30 Temperature 98.4 F 98.6 F 98.6 F Temperature Source Pulse Rate 60 63 62 Pulse Rate [Left Radial] Respiratory Rate 17 17 17 Blood Pressure 124/62 118/56 L 113/55 L Blood Pressure [Right Arm] Blood Pressure Mean [Right Arm] 02 Sat by Pulse Oximetry 100 99 99 Oxygen Delivery Method Mechanical Ventilation Mechanical Ventilation Mechanical Ventilation Fraction of Inspired Oxygen 09/21/24 09:35 09/21/24 09:40 09/21/24 09:45 Temperature 98.4 F 98.4 F 98.6 F Temperature Source Pulse Rate 61 61 62 Pulse Rate [Left Radial] Respiratory Rate 18 16 20 Blood Pressure 104/54 L 101/53 L 96/50 L Blood Pressure [Right Arm] Blood Pressure Mean [Right Arm] 02 Sat by Pulse Oximetry 99 99 100 Oxygen Delivery Method Mechanical Ventilation Mechanical Ventilation Mechanical Ventilation Fraction of Inspired Oxygen Lab Data Lab results reviewed: Yes I reviewed the patient's lab results. Lab Results 09/21/24 07:40: VBG pH 7.34, VBG pCO2 37.7, VBG pO2 125.8 H, VBG HCO3 19.7 L, VBG Total CO2 20.9 L, VBG O2 Saturation 97.9 H, VBG Base Excess -6.1 L, VBG Lactic Acid 2.1 H 09/21/24 07:52: Total Creatine Kinase 93, Urine Color Yellow, Urine Appearance Clear, Urine pH 6.0, Ur Specific Mallory 1.020, Urine Protein 1+ A, Urine Glucose (UA) 3+, Urine Ketones Negative, Urine Blood Negative, Urine Nitrate Negative, Urine Bilirubin Negative, Urine Urobilinogen 0.2, Ur Leukocyte Esterase Negative, Urine RBC None, Urine WBC Occasional, Ur Squamous Epith Cells None, Urine Bacteria None, Urine Opiates Screen Positive H, Urine Methadone Screen Negative, Ur Barbituates Screen Negative, Ur Phencyclidine Scrn Negative, Ur Amphetamines Screen Negative, U Benzodiazepines Scrn Negative, Urine Cocaine Screen Negative, U Marijuana (THC) Screen Negative 09/21/24 08:33: ABG pH 7.32 L, ABG pCO2 43.0, ABG pO2 110.4 H, ABG HCO3 21.9 L, ABG Total CO2 23.2, ABG O2 Saturation 98, ABG Base Excess -4.2 L, ABG Lactate 1.2 09/21/24 : WBC 19.8 H, RBC 5.14, Hgb 15.3, Hct 43.9, MCV 85.4, MCH 29.8, MCHC 34.9, RDW 12.4, Plt Count 222, MPV 10.4, Neut % (Auto) 77.1, Lymph % (Auto) 11.5, [place] % (Auto) 8.7, Eos % (Auto) 1.9, Baso % (Auto) 0.4, Neut # (Auto) 15.3 H, Lymph # (Auto) 2.3, [place] # (Auto) 1.7 H, Eos # (Auto) 0.4, Baso # (Auto) 0.1, Total Counted 100, Neutrophils % (Manual) 76, Lymphocytes % (Manual) 13, Monocytes % (Manual) 10 H, Metamyelocytes % 1.0, Platelet Estimate Normal, RBC Morphology Normal, Sodium 143, Potassium 3.3 L, Chloride 103, Carbon Dioxide 26, Anion Gap 17.3 H, BUN 15, Creatinine 0.90, Estimated GFR 89, Est GFR ( Amer) 108, Glucose 111 H, Calcium 9.6, Total Bilirubin 0.6, AST 27, ALT 12, Alkaline Phosphatase 47, Troponin I < 0.01, Total Protein 7.3, Albumin 4.2, Globulin 3.1, Albumin/Globulin Ratio 1.4, Salicylates < 1.0 L, Acetaminophen < 10 L, Plasma/Serum Alcohol < 10 09/21/24 Unknown 09/21/24 Unknown Orders (Tests/Meds): ED MEDICATIONS Generic Name Dose Route Start Last Admin Trade Name Freq PRN Reason Stop Dose Admin Dextrose/Lactated Ringer's 1,000 mls @ 250 mls/hr 09/21/24 08:00 09/21/24 09:41 Dextrose 5% In Lactated Ringer's 1000ml IV 10/21/24 07:59 250 mls/hr .Q4H PACO Administration Discontinued Medications Generic Name Dose Route Start Last Admin Trade Name Freq PRN Reason Stop Dose Admin Etomidate 30 mg 09/21/24 07:50 09/21/24 07:51 Etomidate 40mg/20ml Vial IV 09/21/24 07:51 30 mg ONCE ONE Administration Succinylcholine Chloride 150 mg 09/21/24 07:50 09/21/24 07:52 Succinylcholine 20mg/Ml 10 Ml Mdv IV 09/21/24 07:51 150 mg ONCE ONE Administration ORDERS Category Date Time Status CT head/brain wo con Stat Cat Scan 09/21/24 08:00 Completed Consult to Behavioral Health [CONS] Routine Cons 09/21/24 08:56 Active CXR --portable [XR chest portable] Stat Exams 09/21/24 08:00 Completed Acetaminophen Stat Lab 09/21/24 Completed CBC w/Auto Diff [Complete Blood Count Auto Diff] Stat Lab 09/21/24 Completed CK [Creatine Kinase] Stat Lab 09/21/24 07:52 Completed CMP [Comprehensive Metabolic Panel] Stat Lab 09/21/24 Completed Ethanol [Ethyl Alcohol] Stat Lab 09/21/24 Completed Salicylate Stat Lab 09/21/24 Completed Trop I [Troponin I] Stat Lab 09/21/24 Completed Troponin I Q3H Lab 09/21/24 11:15 Ordered Troponin I Q3H Lab 09/21/24 14:15 Ordered UA [Urinalysis and Microscopic] Stat Lab 09/21/24 07:52 Completed UDS [Drug Screen,Urine] Stat Lab 09/21/24 07:52 Completed Sputum Culture & Gram Stain Stat Micro 09/21/24 08:10 Results ABG [Arterial Blood Gas] Stat RT 09/21/24 08:33 Completed Insert, Endotracheal Tube Stat RT 09/21/24 09:36 Ordered Lactate Arterial Stat RT 09/21/24 08:33 Completed VBG [Venous Blood Gas] Stat RT 09/21/24 07:40 Completed Medical Decision Narrative: 49-year-old presents today with an intentional overdose of his obtunded secondary to unknown medication ingestions. We believe that this is secondary to insulin and baclofen however could be many other substances as well. Broad workup has been initiated. We will discuss the case with poison control. The patient has been intubated initially had an episode of hypotension administering fluids at the moment. Will keep a close eye on him. D5 LR has been initiated and will check every hour Accu-Cheks. Reassessment 953 chest x-ray performed I personally interpreted shows no acute consolidation endotracheal tube and OG tube are appropriately placed. CT scan was performed I personally interpreted shows no intracranial abnormalities. Labs otherwise unremarkable. Patient did have positive opiates but he did not present as an opiate overdose he did not have pinpoint pupils for instance. Patient continues to have no sedation needed is intubated had a 1 episode of hypotension but is responding well with fluids. We discussed the case with poison control who recommended acute 30-minute Accu-Cheks for the next several hours in addition to dextrose containing fluid infusions which we are doing. That remains very stable. Regarding the baclofen is very long-acting this could be in the system for days. Patient will need to be intubated until he wakes up. At which point he can be evaluated by psychiatry after that and will likely need to be transferred if he becomes medically cleared. Patient never required chest compressions and was never severely hypoxic while he could have had anoxic brain injury no evidence of that at the moment. Patient will be admitted to hospital medicine for further management. Procedures Intubation Mallampati Score:: Class I Time out performed: Yes sedative: Etomidate Mg Given: 30 paralytic: Succinylcholine Mg Given: 150 Laryngoscope: fiber optic video scope ET Tube Size: 7.5 ET Tube Uncuffed: Yes Tube Secured Depth (cm): 22 Tube Secured Location: lips Tube Placement Confirmation: visualized tube passing through cords Patient Tolerated Procedure: well Intubation Complications: none Critical Care Critical Care Time Critical Care Time: Yes Attestation: On 09/21/24, the high probability of a clinically significant, sudden or life threatening deterioration of the following system(s) required my full and direct attention, intervention and personal management. The time I documented below is in addition to time spent performing reported procedures but includes the following listed in this critical care notation. Total Time Total Critical Care Time: 65
--- NOTE | 2024-09-21 08:00 | XR_ITS ---
FINAL REPORT CLINICAL HISTORY: Shortness of breath tube placements COMPARISON: 08/02/2024 FINDINGS: The heart size is normal. ET tube is present with the tip 6.5 cm superior to the gerardo. There is an NG tube present with the tip in the stomach. Mild chronic changes are seen in the lungs. There is no focal infiltrate or edema. There are no pleural effusions. There is no pneumothorax. There is no osseous abnormality. IMPRESSION: No acute cardiopulmonary process. ET tube tip 6.5 cm superior to the gerardo. NG tube tip in the stomach. Reviewed, Interpreted and Dictated by Korey Robles MD Transcribed by Maliha Gonsalves Authenticated and . [facility]
--- NOTE | 2024-09-21 08:00 | CT_ITS ---
FINAL REPORT TECHNIQUE: Axial CT images were performed through the head. Coronal reformatted images were submitted. This study was performed with techniques to keep radiation doses as low as reasonably achievable (ALARA). Individualized dose reduction techniques using automated exposure control or adjustment of mA and/or kV according to the patient's size were employed. CLINICAL HISTORY: AMS COMPARISON: 08/11/2024 FINDINGS: The patient is intubated. Mild atrophy is noted. Ventricles are proportional. There is no evidence of hemorrhage. There is no mass or edema identified. There is no abnormal extra-axial fluid seen. The sinuses are well aerated. IMPRESSION: Mild atrophy without acute intracranial process. Reviewed, Interpreted and Dictated by Korey Robles MD Transcribed by Maliha Gonsalves Authenticated and [facility]
--- OUTSIDE RECORDS SUMMARY | 2024-09-21 08:04 | XMS_ITS | Clinical Summary ---
Author Organization [facility] Address [facility] [place] [address] Care Team Providers Care Rn Midwife Name Role Phone Pcp, None MD Primary Care Provider [phone] Allergies Active Allergy Reactions Criticality Noted Date [...] by mouth daily. 7 tablet 8 Active Ksbioqrymr-PI-H angela Polysacch (ALCORTIN A) 1-2-1 % GEL Apply topically daily. 48 g 5 8 Active atorvastatin (LIPITOR) 80 MG TABS Take 1 tablet by mouth daily. 90 tablet 1 9 Active vitamin D-2 (ERGOCALCIFEROL ) 98683 UNIT CAPS Take 1 capsule by mouth [...] age to complete this topic Care Teams Rn Midwife Relationship Specialty Start Date End Date Pcp, MD Trice PCP - General Internal Medicine 07/14/18
--- OUTSIDE RECORDS SUMMARY | 2024-09-21 08:04 | XMS_ITS | Referral Summary ---
Author Organization [facility] Address [facility] [place] [address] Care Team Providers Care Health Education Coordinator Name Role Phone Pcp, None MD Primary Care Provider [phone] Allergies Active Allergy Reactions Criticality Noted Date [...] by mouth daily. 7 tablet 8 Active Gkcenhsxsa-DQ-B angela Polysacch (ALCORTIN A) 1-2-1 % GEL Apply topically daily. 48 g 5 8 Active atorvastatin (LIPITOR) 80 MG TABS Take 1 tablet by mouth daily. 90 tablet 1 9 Active vitamin D-2 (ERGOCALCIFEROL ) 76670 UNIT CAPS Take 1 capsule by mouth [...] of Treatment Not on file Care Teams Health Education Coordinator Relationship Specialty Start Date End Date Pcp, Trice, PCP - General Internal Medicine 07/14/18
--- OUTSIDE RECORDS SUMMARY | 2024-09-21 08:04 | XMS_ITS | Encounter Summary ---
Author Organization Healthcare Address [address] [place] [address] Care Team Providers Care Licensed Investment Sales Assistant Name Role Phone Shamika Roy APRN Primary Care Provider [phone] Encounter Details Date Type Department Care Team (Late st Contact Info) Description 12/03/2023 Orders Only External Location [address] [place] [address] Mikey Hernandez MD [address] [place], [place] [id number] Social History Tobacco Use Types Packs/Day Years [...] place to sleep or slept in a half-way (including now)? No 09/08/2023 Utilities Answer Date [...] 12/03/2023 1:16 PM EDT Mikey Hernandez MD IM MRI PROCEDURES Final Result documented in this encounter Visit Diagnoses Not on filedocumented in this encounter Additional Health Concerns Assessment Noted Time A fall risk assessment has been complete d for the patient 11/10/2023 1:46 PM EDT A Body Mass Index follow-up plan has been documented for the patient 11/10/2023 5:22 PM EDT documented as of this encounter Care Teams Licensed Investment Sales Assistant Relationship Specialty Start Date End Date Shamika Roy APRN [address] [place] [address] PCP - General 09/08/23 documented as of this encounter
--- OUTSIDE RECORDS SUMMARY | 2024-09-21 08:04 | XMS_ITS | Clinical Summary ---
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 [id number] Allergies Active Allergy Reactions Criticality Noted Date Comments Asa-Calcium Lnlf-Myn-Gnpxofer Anaphylaxis High 12/19/2010 Aspirin Anaphylaxis High 08/14/2010 [...] e 2 diabetes mellitus with complication, unspecified mcfp insulin use status ([facility]) Check blood glucose 4 times Daily 150 [...] a day. 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 Immunizations Immunization Administration Dates Next [...] Screening (MyChart) 09/14/2024 Immunization: Influenza (MyC storey) (#1) 2024 11/28/2021, 02/22/2021, 01/12/2014, Additional history exists [...] BLOOD ORDERABLES Final Resu lt [facility] [address] [place] [address], [facility] * (ABNORMAL) Lipid Profile (04/17/2020 1:53 AM [...] lt [facility] [address] * (ABNORMAL) Comprehensive metabolic panel (04/17/2020 [...] 3 - 16 mmol/L 04/17/2020 2:23 AM [facility] BUN 12 7 - 25 mg/dL 04/17/2020 2:23 AM [facility] Creatinine 0.76 0.60 - 1.30 mg/dL 04/17/2020 2:23 AM [facility] Glucose 178(H) 70 - 100 mg/dL 04/17/2020 2:23 AM [facility] Calcium 9.4 8.6 - 10.3 mg/dL 04/17/2020 2:23 AM [facility] Total Bilirubin 0.6 0.0 - 1.5 mg/dL 04/17/2020 2:23 AM [facility] AST 10(L) 13 - 39 U/L 04/17/2020 2:23 AM [facility] ALT 6(L) 7 - 52 U/L 04/17/2020 2:23 AM [facility] Alkaline Phosphatase 68 36 - 125 U/L 04/17/2020 2:23 AM [facility] Total Protein 7.3 6.4 - 8.9 g/dL 04/17/2020 2:23 AM [facility] Albumin 4.3 3.5 - 5.7 g/dL 04/17/2020 2:23 AM [facility] Osmolality, Calculated 290 278 - 305 mOsm/kg 04/17/2020 2:23 AM [facility] eGFR AA CKD-EPI >90 See note. 2:23 AM [facility] Comment: As of 2015 the [...] equation to estimate glomerular filtration rate. [place] [employer] Med. 2009:150(9):604-12 eGFR NONAA CKD-EPI >90 See [...] equation to estimate glomerular filtration rate. [place] [employer] Med. 2009:150(9):604-12 Plasma specimen (specimen) 04/17/2020 1:53 AM EST 04/17/2020 1:58 AM EST us Emiliano Magaña MD LAB BLOOD ORDERABLES Final Resu lt [facility] [address] * ED HIV 1+2 Antibody/Antigen with [...] t [facility] [address] [place] [address] * ED HCV Ab Reflex To [...] [facility] [address] [place] [address], [facility] * COLONOSCOPY (09/14/2014) Colonoscopy done Historical Provider HEALTH MAINTENANCE Final Result * DEXA SCAN (07/19/2014) Dexa Scan not done/male Anatomical Region Laterality Modality Other Historical Provider HEALTH MAINTENANCE Final Result from Last 3 Months or Most Recently Relevant to Health Maintenance Insurance MEDICARE A AND B [place] [employer] Advance Directives For more information, please contact: [phone] * Full Code (Latest Code Status on [...] 9:18 PM 12/18/2016 9:18 PM Care Teams Hat Parts Cutter Machine Relationship Specialty Start Date End Date Karissa Henry NP [address] [address] PCP - General Nurse Practitioner 02/19/21
--- OUTSIDE RECORDS SUMMARY | 2024-09-21 08:04 | XMS_ITS | Clinical Summary ---
Author Organization [facility] Address [address] [place] [address] Care Team Providers Care Geological Science Teacher Name Role Phone Shamika Roy APRN Primary Care Provider [phone] Allergies Active Allergy Reactions Criticality Noted Date Comments Aspirin Anaphylaxis High 09/07/2023 Atorvastatin Other - please document in the comment field Medium 02/21/2019 Myopathy - tolerates Crestor Bee Venom Anaphylaxis High 02/10/2016 Bupropion Other - please document in the comment field Low 04/07/2019 Dipeptidyl Peptidase-4 Inhibitors (Gliptins) Diarrhea Medium 01/01/2011 Cold clammy Hymenoptera Venom Preparations Other - please document in the comment field Low 04/29/2020 Ibuprofen Anaphylaxis High 08/15/2010 Sitagliptin Other - please document in the comment field Low 09/09/2024 DKA Metformin And Related Diarrhea Low 01/01/2011 Metoclopramide Rash,Other - please document in the comment field Medium 07/07/2018 Paradoxical Response Midazolam Unknown - Patient states they do not know rxn details Low 08/31/2014 Nsaids Anaphylaxis High 09/07/2023 Wasp Venom Protein Anaphylaxis High 10/11/2012 Medications pregabalin (Lyrica) 150 MG capsuleIndicati ons:Panic Disorder Take 1 capsule by mouth 3 times a day. Active oxyCODONE (Roxicodone) 10 MG immediate release tabletIndicatio ns:Chronic Pain Take 1 tablet by mouth every 4 hours. Active topiramate (Topamax) 25 MG tabletIndicatio ns:Migraine Take 1 tablet by mouth nightly. Active losartan (Cozaar) 50 MG tabletIndicatio ns:Hypertension Take 1 tablet by mouth daily. Active LORazepam (Ativan) 1 MG tabletIndicatio ns:Seizure Disorder Take 1 tablet by mouth 3 times a day. Active traZODone (Desyrel) 50 MG tabletIndicatio ns:Insomnia Take 1-2 tablets by mouth at night as needed for sleep. Active promethazine (Phenergan) 25 MG tabletIndicatio ns:Motion Sickness Take 1 tablet by mouth every 6 hours as needed for nausea or vomiting. Active baclofen (Lioresal) 10 MG tabletIndicatio ns:Muscle Spasm Take 1 tablet by mouth 4 times a day as needed for muscle spasms. Active empagliflozin (Jardiance) 25 MGIndications:T ype 2 Diabetes Mellitus Take 1 tablet by mouth daily. Active fenofibrate (Tricor) 48 MG tabletIndicatio ns:Hypertriglyc eridemia Take 1 tablet by mouth daily. Active potassium chloride CR (Klor-Con) 10 MEQ ER tabletIndicatio ns:Hypokalemia Take 1 tablet by mouth daily. Do not crush, chew, or split. Active levETIRAcetam (Keppra) 750 MG tabletIndicatio ns:Seizure Take 2 tablets by mouth 2 times a day. Active glucose (Trueplus Glucose) 4 g chewable tabletIndicatio ns:Type 2 Diabetes Mellitus Chew 1-4 tablets as needed for low blood sugar. 4 Active EPINEPHrine (Epipen) 0.3 MG/0.3ML injection syringeIndicati ons:Anaphylaxis Inject 0.3 mL as directed as needed for anaphylaxis. 4 Active folic acid (Folvite) 400 MCG tabletIndicatio ns:Folate Deficiency Anemia Take 1 tablet by mouth daily. Active NovoLOG 100 UNIT/ML injection vialIndications :Type 2 Diabetes Mellitus Inject 0-12 Units under the skin 3 times a day with meals. 4 Active metoprolol succinate XL (Toprol-XL) 100 MG 24 hr tabletIndicatio ns:Hypertension Take 1 tablet by mouth daily. 4 Active clopidogrel (Plavix) 75 MG tabletIndicatio ns:Acute Coronary Syndrome Take 1 tablet (75 mg) by mouth 1 (one) time each day. 90 tablet 3 4 Active rosuvastatin (Crestor) 10 MG tabletIndicatio ns:Hyperlipidem ia Take 1 tablet (10 mg) by mouth 1 (one) time each day. 90 tablet 3 4 Active calcitriol (Rocaltrol) 0.25 MCG capsuleIndicati ons:Hypocalcemi a Take 1 capsule by mouth 3 times a week. Active insulin glargine (Lantus) 100 UNIT/ML injection vialIndications :Type 2 Diabetes Mellitus Inject 50 Units under the skin 2 times a day. Active isosorbide mononitrate ER (Imdur) 60 MG 24 hr tabletIndicatio ns:Stable Angina Pectoris Take 1 tablet by mouth daily. Do not crush or chew. Active ranolazine (Ranexa) 500 MG 12 hr tabletIndicatio ns:Stable Angina Pectoris Take 1 tablet by mouth 2 times a day. Do not crush, chew, or split. Active Melatonin 10 MG tabletIndicatio ns:Insomnia Take 10 mg by mouth at night as needed (for sleep). Active promethazine (Phenergan) 25 MG suppositoryIndi cations:Motion Sickness Insert 1 suppository into the rectum every 6 hours as needed for nausea or vomiting. Active ergocalciferol (Vitamin D-2) 1.25 MG (79716 UT) capsule Take 1 capsule (50,000 Units) by mouth 2 (two) times a week. 025 Discontin ued(Enter ed in Error) semaglutide (Ozempic, 0.25 or 0.5 MG/DOSE,) 2 MG/1.5ML solution pen-injector inj. pen Inject 0.1875 mL (0.25 mg) under the skin 1 (one) time per week. 025 Discontin ued(Enter ed in Error) insulin glargine (Lantus SoloStar) 100 UNIT/ML injection pen Inject 80 Units under the skin 2 (two) times a day. 025 Discontin ued(Enter ed in Error) atorvastatin (Lipitor) 80 MG tablet Take 1 tablet (80 mg) by mouth every night. 30 tablet 1 4 025 Discontin ued(Enter ed in Error) acetaminophen (Tylenol) 325 MG tablet Take 2 tablets (650 mg) by mouth. 025 Discontin ued(Enter ed in Error) Blood Glucose Monitoring Suppl (Accu-Chek Guide Ma) w/Device kit USE DIRECTED TO CHECK BLOOD SUGAR PER PROVIDER 4 025 Discontin ued(Enter ed in Error) Vitamin D3 1.25 MG (94704 UT) capsule TAKE 1 CAPSULE BY MOUTH 2 TIMES A WEEK ON THE SAME DAYS EACH WEEK Discontin ued(Enter ed in Error) clobetasol (Temovate) 0.05 % cream APPLY TOPICALLY TO THE AFFECTED AREA TWICE DAILY 4 025 Discontin ued(Enter ed in Error) Accu-Chek Guide test strip USE DIRECTED TO TEST BLOOD SUGAR FOUR TIMES DAILY 4 025 Discontin ued(Enter ed in Error) insulin aspart (NovoLOG) 100 UNIT/ML injection pen Inject under the skin. 025 Discontin ued(Enter ed in Error) insulin aspart protamine-insul in aspart (NovoLOG Mix 70-30) (70-30) 100 UNIT/ML injection pen Inject 15 Units under the skin 3 times a day. 025 Discontin ued(Enter ed in Error) insulin NPH-insulin regular (Novolin 70-30,Humulin 70-30) (70-30) 100 UNIT/ML injection vial Inject under the skin. 025 Discontin ued(Enter ed in Error) BD Insulin Syringe U/F 31G X 5/16 1 ML misc USE DIRECTED 4 025 Discontin ued(Enter ed in Error) Accu-Chek Softclix Lancets lancets USE DIRECTED TO TEST BLOOD SUGAR FOUR TIMES DAILY 4 025 Discontin ued(Enter ed in Error) meclizine (Antivert) 12.5 MG tablet Take 1 tablet (12.5 mg) by mouth 3 (three) times a day if needed. 025 Discontin ued(Enter ed in Error) Melatonin-Pyrid oxine 3-1 MG tablet Take 5 mg by mouth. 025 Discontin ued(Enter ed in Error) pantoprazole (ProtoNix) 20 MG EC tablet Take 1 tablet (20 mg) by mouth 1 (one) time each day. 4 025 Discontin ued(Enter ed in Error) ZINC METHIONATE PO Take 1 tablet by mouth 1 (one) time each day. 025 Discontin ued(Enter ed in Error) levocetirizine (Xyzal) 5 MG tablet 1 tablet (5 mg). 4 025 Discontin ued(Enter ed in Error) methocarbamol (Robaxin) 750 MG tablet 1 tablet (750 mg). 4 025 Discontin ued(Enter ed in Error) Active Problems Problem Noted Date Diagnosed Date Borderline personality disorder 09/10/2024 Diabetes 09/10/2024 Seizure disorder 09/10/2024 HTN (hypertension) 09/10/2024 HLD (hyperlipidemia) 09/10/2024 Chronic pain 09/10/2024 Nicotine use disorder 09/10/2024 History of TIA (transient ischemic attack) 11/09 History of ischemic stroke 11/10/2023 Stroke-like symptoms 09/07/2023 Encounters Date Type Department Care Team Description 09/14/2024 Telephone [facility] [address] [place] [phone] Linda Pepe 09/13/2024 Telephone [facility] [address] [place] [phone] Linda Pepe 09/09/2024 7:40 AM EDT - 09/10/2024 10:41 AM EDT Hospital Encounter [facility] [address] [place] [phone] Jose Alberto Quiroga MD Potter, Samuel J, MD Suicide attempt ([facility]) (Primary Dx) Discharge Disposition: Home or Self Care 09/09/2024 Plan of Care Documentation [facility] [address] [place] [phone] 09/09/2024 Travel from Last 3 Months Social History Tobacco Use Types Packs/Day Years [...] place to sleep or slept in a group home (including now)? No 09/08/2023 Humiliation, Afraid, Rape, [...] often do you attend chur ch or spiritism services? Never 09/09/2024 Do you belong to any clubs o r organizations such as alevism groups, unions, fraternal or athletic groups, or [...] more drinks on one occasion? Never 09/09/2024 [facility] - Occup[facility] Stress [...] any time in the past 12 m [facility], were you homeless or living in a group home (including now)? No 09/09/2024 Utilities Answer Date [...] Mass Index 27.71 09/09/2024 7:00 PM EDT Plan of Treatment Health Maintenance Due Date Last Done Comments [facility]-Medicare Annual Wellness (AWV) 1975 [facility]-Infant/Child/Adol SDOH [...] [facility]-Zoster Vaccines (2 of 3) 11/18/2023 09/23/2023 [facility]-Influenza Vaccine (#1) 11/15/202401/08, 11/14/2022, 01/12/2014, Additional history exists [facility]-Diabetes: Hemoglobin A1C 12/09/2024, 09/07/2023, 04/16/2023 [facility]- SDOH Screenings 03/11/2025 [facility]-Adult SDOH Screenings 03/11/2025 09/09/2024 [facility]-Depression Screening 09/09/2025 09/09/2024 [facility]-HIV Screening Completed 09/07/2023 [facility]-Hepatitis C Screening Completed 09/07/2023, [id number] Vaccine Completed 01/09/2024, 12/14/19 [facility]-Obesity Intervention Completed 025, 01/01/2024, 01/01/2024, Additional history exists HPV Vaccines Aged Out [...] OXYCODONE CONFIRMATION,URINE STAT 09/09/2024 2:25 PM EDT BENZODIAZEPINE, URINE, QUANTITATIVE STAT 09/09/2024 2:25 PM EDT DRUG ABUSE SCREEN, URINE STAT 09/09/2024 2:25 PM EDT URINALYSIS WITH REFLEX MICROSCOPIC STAT 09/09/2024 2:25 PM EDT LIPID PROFILE, PLASMA Add-On 09/09/2024 9:57 AM EDT FREE T4, PLASMA STAT 09/09/2024 9:57 AM EDT TSH STAT 09/09/2024 9:57 AM EDT HEMOGLOBIN A1C STAT 09/09/2024 9:57 AM EDT CBC WITH AUTO DIFFERENTIAL STAT 09/09/2024 9:57 AM EDT COMPREHENSIVE METABOLIC PANEL, PLASMA STAT 09/09/2024 9:57 AM EDT HEPATITIS C ANTIBODY - ED W/REFLEX TO HCV QUANT PCR STAT 09/07/2023 6:31 PM EDT ED HIV 1/2 ANTIBODY/ANTIGEN SCREEN WITH REFLEX TO HIV I/II DIFFERENTIATION STAT 09/07/2023 6:31 PM EDT from Last 3 Months or Most Recently Relevant to Health Maintenance Results * (ABNORMAL) POCT glucose meter (09/10/2024 7:59 AM EDT) Only the most recent of4 resultswithin the time period is included. POCT Glucose 310(H) 74 - 99 mg/dL [...] for testing. Comment 09/10/2024 8:00 AM EDT [facility] Coffee Break Attendant ID Tri Alba 025 8:00 AM EDT [facility] Device ID [id number] 09/10/2024 8:00 AM EDT [facility] Specimen Type POC Capillary 09/10/2024 8:00 AM EDT [facility] Blood Capillary blood specimen / Unknown 09/10/2024 7:59 AM EDT 09/10/2024 8:00 AM EDT us Vicente Del Valle MD LAB POINT OF CARE TE ST DOCKED DEVICE UNSOLICITED RESULTS Final Result [facility] [address] [place] [address] * (ABNORMAL) OXYCODONE CONFIRMATION,URINE (09/09/2024 2:25 PM EDT) Oxycodone 659(H) <50 ng/mL 09/12/2024 10:11 PM EDT [facility] Oxymorphone <50 <50 ng/mL 09/12/2024 10:11 PM EDT [facility] Oxymorphone Glucuronide >1,000(H) <50 ng/mL 09/12/2024 10:11 PM EDT [facility] Urine Urine specimen obtained by clean catch procedure / Unknown 09/09/2024 2:25 PM EDT 09/09/2024 4:04 PM EDT Narrative [facility] - 09/12/2024 10:11 PM EDT Test performed by LC-MS/MS at the [facility]. This test was developed and its performance characteristics determined by [facility]. It has not been cleared or approved by the FDA. The laboratory is regulated under CLIA as qualified to perform high-complexity testing. This test is used for clinical purposes. us Vicente Del Valle MD LAB URINE ORDERABLES Final Re sult Performing Organization Address [facility] Co de Phone Number [facility] [address] [place] [address] * Drug abuse screen (09/09/2024 2:25 PM EDT) Amphetamine Screen Urine Negative Cutoff: 500 ng/mL 09/09/2024 4:23 PM EDT [facility] Benzodiazepines Screen Urine Presumptive positive. Confirmation by LC-MS/MS to follow. Cutoff: 200 ng/mL 09/09/2024 4:23 PM EDT [facility] Cannabinoid Screen Urine Negative Cutoff: 50 ng/mL 09/09/2024 4:23 PM EDT [facility] Cocaine Screen Urine Negative Cutoff: 300 ng/mL 09/09/2024 4:23 PM EDT [facility] Barbiturate Screen Urine Negative Cutoff: 200 ng/mL 09/09/2024 4:23 PM EDT [facility] Opiate Screen Urine Negative Cutoff: 300 ng/mL 09/09/2024 4:23 PM EDT [facility] Methadone Screen Urine Negative Cutoff: 300 ng/mL 09/09/2024 4:23 PM EDT [facility] Buprenorphine Screen Urine Negative Cutoff: 10 ng/mL 09/09/2024 4:23 PM EDT [facility] Fentanyl Screen Urine Negative Cutoff: 1 ng/mL 09/09/2024 4:23 PM EDT [facility] Oxycodone Screen Urine Presumptive positive. Confirmation by LC-MS/MS to follow. Cutoff: 100 ng/mL 09/09/2024 4:23 PM EDT [facility] Urine Urine specimen obtained by clean catch procedure / Unknown 09/09/2024 2:25 PM EDT 09/09/2024 4:04 PM EDT us Vicente Del Valle MD LAB URINE ORDERABLES Final Re sult Performing Organization Address City/State/[facility] Co de Phone Number [facility] [address] [place] [address] * (ABNORMAL) Benzodiazepine Confirm Urine (09/09/2024 2:25 PM EDT) [facility] [place] Alprazolam <20 <20 ng/mL 09/12 10:10 PM EDT [facility] [place] Midazolam <20 <20 ng/mL 2024 10:10 PM EDT [facility] [place] Triazolam <20 <20 ng/mL 2024 10:10 PM EDT [facility] Alprazolam <10 <10 ng/mL 09/12/2024 10:10 PM EDT [facility] Aminoclonazepam <20 <20 ng/mL 10:10 PM EDT [facility] Clonazepam <10 <10 ng/mL 09/12/2024 10:10 PM EDT [facility] Diazepam <10 <10 ng/mL 09/12/2024 10:10 PM EDT [facility] Lorazepam <20 <20 ng/mL 09/12/2024 10:10 PM EDT [facility] Lorazepam Glucuronide >1,000(H) <50 ng/mL 09/12/2024 10:10 PM EDT [facility] Midazolam <20 <20 ng/mL 09/12/2024 10:10 PM EDT [facility] Nordiazepam <20 <20 ng/mL 09/12/2024 10:10 PM EDT [facility] Oxazepam <20 <20 ng/mL 09/12/2024 10:10 PM EDT [facility] Oxazepam Glucuronide <50 <50 ng/mL 09/12/2024 10:10 PM EDT [facility] Temazepam <20 <20 ng/mL 09/12/2024 10:10 PM EDT [facility] Temazepam Glucuronide <50 <50 ng/mL 09/12/2024 10:10 PM EDT [facility] Triazolam <20 <20 ng/mL 09/12/2024 10:10 PM EDT [facility] Urine Urine specimen obtained by clean catch procedure / Unknown 09/09/2024 2:25 PM EDT 09/09/2024 4:04 PM EDT Narrative [facility] - 09/12/2024 10:10 PM EDT Drug analysis is confirmed by LC-MS/MS (LC Tandem Mass Spectrometry) on Urine specimens. This test was developed and its performance characteristics determined by [facility]. It has not been cleared or approved by the FDA. The laboratory is regulated under CLIA as qualified to perform high-complexity testing. This test is used for clinical purposes. Testing is performed at the [facility], [facility]. us Vicente Del Valle MD LAB URINE ORDERABLES Final Re sult [facility] [address] [place] [address] * (ABNORMAL) Urinalysis with reflex microscopic (Culture NOT Included) (09/09/2024 2:25 PM EDT) Color, Urine Yellow LAB URINALYSIS - AUTOMATED METHOD 09/09/2024 4:07 PM EDT [facility] Clarity, Urine Clear LAB URINALYSIS - AUTOMATED METHOD 09/09/2024 4:07 PM EDT [facility] Spec [place], Urine >1.030(H) 1.005 - 1.030 LAB URINALYSIS - AUTOMATED METHOD 09/09/2024 4:07 PM EDT [facility] pH, Urine 6.0 5.0 - 8.0 LAB URINALYSIS - AUTOMATED METHOD 09/09/2024 4:07 PM EDT [facility] Protein, Urine Trace(A) Negative mg/dL LAB URINALYSIS - AUTOMATED METHOD 09/09/2024 4:07 PM EDT [facility] Glucose, Urine >=1000(A) Negative mg/dL LAB URINALYSIS - AUTOMATED METHOD 09/09/2024 4:07 PM EDT [facility] Ketones, Urine Negative Negative mg/dL LAB URINALYSIS - AUTOMATED METHOD 09/09/2024 4:07 PM EDT [facility] Blood, Urine Negative Negative LAB URINALYSIS - AUTOMATED METHOD 09/09/2024 4:07 PM EDT [facility] Bilirubin, Urine Negative Negative LAB URINALYSIS - AUTOMATED METHOD 09/09/2024 4:07 PM EDT [facility] Urobilinogen, Urine 1.0 0.2 to 1.0 mg/dL LAB URINALYSIS - AUTOMATED METHOD 09/09/2024 4:07 PM EDT [facility] Leukocytes, Urine Negative Negative LAB URINALYSIS - AUTOMATED METHOD 09/09/2024 4:07 PM EDT [facility] Nitrite, Urine Negative Negative LAB URINALYSIS - AUTOMATED METHOD 09/09/2024 4:07 PM EDT [facility] Urine Urine specimen obtained by clean catch procedure / Unknown 09/09/2024 2:25 PM EDT 09/09/2024 4:04 PM EDT us Vicente Del Valle MD LAB URINE ORDERABLES Final Re sult [facility] [address] [place] [id number] * (ABNORMAL) CBC w/diff (09/09/2024 9:57 AM EDT) WBC Count 11.41(H) 3.70 - 10.30 10*3/uL LAB HEMATOLOGY METHOD 09/09/2024 12:35 PM EDT [facility] RBC Count 5.13 4.60 - 6.10 10*6/uL LAB HEMATOLOGY METHOD 09/09/2024 12:35 PM EDT [facility] HGB 15.1 13.7 - 17.5 g/dL LAB HEMATOLOGY METHOD 09/09/2024 12:35 PM EDT [facility] HCT 45.3 40.0 - 51.0 % LAB HEMATOLOGY METHOD 09/09/2024 12:35 PM EDT [facility] Platelet Count 172 155 - 369 10*3/uL LAB HEMATOLOGY METHOD 09/09/2024 12:35 PM EDT [facility] MCV 88 79 - 98 fL LAB HEMATOLOGY METHOD 09/09/2024 12:35 PM EDT [facility] MCH 29.4 26.0 - 32.0 pg LAB HEMATOLOGY METHOD 09/09/2024 12:35 PM EDT [facility] MCHC 33.3 30.7 - 35.5 g/dL LAB HEMATOLOGY METHOD 09/09/2024 12:35 PM EDT [facility] RDW 12.9 11.5 - 14.5 % LAB HEMATOLOGY METHOD 09/09/2024 12:35 PM EDT [facility] MPV 10.9 8.8 - 12.5 fL LAB HEMATOLOGY METHOD 09/09/2024 12:35 PM EDT [facility] nRBC 0.0 <=0.0 per 100 WBCs LAB HEMATOLOGY METHOD 09/09/2024 12:35 PM EDT [facility] Differential Type Automated LAB HEMATOLOGY METHOD 09/09/2024 12:35 PM EDT [facility] Neutrophils % 60 % LAB HEMATOLOGY METHOD 09/09/2024 12:35 PM EDT [facility] Lymphocytes % 27 % LAB HEMATOLOGY METHOD 09/09/2024 12:35 PM EDT [facility] Monocytes % 9 % LAB HEMATOLOGY METHOD 09/09/2024 12:35 PM EDT [facility] Eosinophils % 3 % LAB HEMATOLOGY METHOD 09/09/2024 12:35 PM EDT [facility] Basophils % 1 % LAB HEMATOLOGY METHOD 09/09/2024 12:35 PM EDT [facility] Immature Granulocytes % 0 % LAB HEMATOLOGY METHOD 09/09/2024 12:35 PM EDT [facility] Neutrophils Absolute 6.99(H) 1.60 - 6.10 10*3/uL LAB HEMATOLOGY METHOD 09/09/2024 12:35 PM EDT [facility] Lymphocytes Absolute 3.03 1.20 - 3.90 10*3/uL LAB HEMATOLOGY METHOD 09/09/2024 12:35 PM EDT [facility] Monocytes Absolute 0.99(H) 0.30 - 0.90 10*3/uL LAB HEMATOLOGY METHOD 09/09/2024 12:35 PM EDT [facility] Eosinophils Absolute 0.30 0.00 - 0.50 10*3/uL LAB HEMATOLOGY METHOD 09/09/2024 12:35 PM EDT [facility] Basophils Absolute 0.07 0.00 - 0.10 10*3/uL LAB HEMATOLOGY METHOD 09/09/2024 12:35 PM EDT [facility] Immature Granulocytes Absolute 0.03 0.00 - 0.06 10*3/uL LAB HEMATOLOGY METHOD 09/09/2024 12:35 PM EDT [facility] Blood Venous blood specimen / Unknown Venipuncture / Unknown 09/09/2024 9:57 AM EDT 09/09/2024 9:57 AM EDT Narrative [facility] - 09/09/2024 12:35 PM EDT Therapeutic decision making should be based on absolute values, rather than percentages. Jose Alberto Quiroga MD LAB BLOOD ORDERABLES Final Result [facility] [address] [place] [address] * Thyroid Stimulating Hormone, Plasma (09/09/2024 9:57 AM EDT) Thyroid Stimulating Hormone, Plasma 1.42 0.40 - 4.20 uIU/mL 09/09/2024 12:47 PM EDT [facility] Blood Venous blood specimen / Unknown Venipuncture / Unknown 09/09/2024 9:57 AM EDT 09/09/2024 9:57 AM EDT Jose Alberto Quiroga MD LAB BLOOD ORDERABLES Final Result Performing Organization Address City/[facility]/ZIP Co de Phone Number [facility] [address] [place] [address] * Free T4, Plasma (09/09/2024 9:57 AM EDT) [facility] Free T4, Plasma 1.3 0.8 - 1.7 ng/dL 09/09/2024 12:47 PM EDT [facility] Blood Venous blood specimen / Unknown Venipuncture / Unknown 09/09/2024 9:57 AM EDT 09/09/2024 9:57 AM EDT us Jose Alberto Quiroga MD LAB BLOOD ORDERABLES Final Result Performing Organization Address [facility] Co de Phone Number [facility] [address] [place] [address] * (ABNORMAL) Hemoglobin A1c (09/09/2024 9:57 AM EDT) [facility] Hemoglobin A1c 10.7(H) <5.7 % 09/09/2024 1:22 PM EDT [facility] Blood Venous blood specimen / Unknown Venipuncture / Unknown 09/09/2024 9:57 AM EDT 09/09/2024 9:57 AM EDT Narrative [facility] - 09/09/2024 1:22 PM EDT HA1C Interpretive Data: Diagnosis of Diabetes: Diabetic > or = 6.5% Pre-diabetic 5.7 to 6.4% Non-diabetic < or = 5.6% Glycemic Targets for Type I and Type II Diabetics: Non- Adults <7.0% Adults <6.0% Children and Adolescents <7.5% Source: [place] [employer]. Standards of medical care in diabetes,2017. Diabetes Care.2017:40 (suppl 1):S1-S135. Jose Alberto Quiroga MD LAB BLOOD ORDERABLES Final Result Performing Organization Address City/[facility]/ZIP Co de Phone Number [facility] [address] [place] [address] * (ABNORMAL) Lipid panel (09/09/2024 9:57 AM EDT) Cholesterol, Plasma 90 <200 mg/dL 09/09/2024 1:59 PM EDT [facility] Comment: Cholesterol Reference Range (age >17 years): Desirable <200 mg/dL Borderline 200 to 239 mg/dL Undesirable >239 mg/dL HDL 28(L) >=40 mg/dL 09/09/2024 1:59 PM EDT [facility] Comment: HDL Cholesterol Reference Ranges (age >17 years): Female, acceptable > or = 50 mg/dL Male, acceptable > or = 40 mg/dL Triglycerides, Plasma 185(H) <150 mg/dL 09/09/2024 1:59 PM EDT [facility] Comment: Triglyceride Reference Range (age >17 years): Desirable: <150 mg/dL Borderline high: 150 to 199 mg/dL High: 200 to 499 mg/dL Very high: >499 mg/dL Increased risk of pancreatitis: >1000 mg/dL Cholesterol/HDL Ratio 3 09/09/2024 1:59 PM EDT [facility] LDL, Calculated 32 <100 mg/dL 1:59 PM EDT [facility] Comment: LDL Cholesterol Reference Range [...] 12 hours? Unknown 09/09/2024 1:59 PM EDT [facility] Blood Venous blood specimen / Unknown Venipuncture / Unknown 09/09/2024 9:57 AM EDT 09/09/2024 9:57 AM EDT us Vicente Del Valle MD LAB BLOOD ORDERABLES Final Re sult [facility] [address] [place] [address] * (ABNORMAL) CMP (09/09/2024 9:57 AM EDT) [facility] Glucose, Plasma 109(H) 74 - 99 mg/dL 09/09/2024 12:47 PM EDT [facility] BUN, Plasma 13 7 - 21 mg/dL 09/09/2024 12:47 PM EDT [facility] Creatinine, Plasma 0.99 0.70 - 1.20 mg/dL 09/09/2024 12:47 PM EDT [facility] BUN/Creatinine Ratio 13 09/09/2024 12:47 PM EDT [facility] Sodium, Plasma 138 136 - 145 mmol/L 09/09/2024 12:47 PM EDT [facility] Potassium, Plasma 4.1 3.6 - 4.9 mmol/L 09/09/2024 12:47 PM EDT [facility] Chloride, Plasma 104 97 - 107 mmol/L 09/09/2024 12:47 PM EDT [facility] CO2, Plasma 22 22 - 29 mmol/L 09/09/2024 12:47 PM EDT [facility] Anion Gap 12 6 - 16 mmol/L 09/09/2024 12:47 PM EDT [facility] Total Calcium, Plasma 9.0 8.9 - 10.2 mg/dL 09/09/2024 12:47 PM EDT [facility] Total Protein 7.3 6.3 - 7.9 g/dL 09/09/2024 12:47 PM EDT [facility] Albumin, Plasma 4.1 3.5 - 5.2 g/dL 09/09/2024 12:47 PM EDT [facility] AST, Plasma 18 10 - 50 U/L 09/09/2024 12:47 PM EDT [facility] ALT, Plasma 10 10 - 50 U/L 09/09/2024 12:47 PM EDT [facility] Alkaline Phosphatase, Plasma 56 40 - 115 U/L 09/09/2024 12:47 PM EDT [facility] Total Bilirubin, Plasma 0.2 0.2 - 1.1 mg/dL 09/09/2024 12:47 PM EDT [facility] eGFRcr 92.8 mL/min/1.7 3m*2 09/09/2024 12:47 PM EDT [facility] Comment:Reported eGFRcr in m L/min/1.73m2 is based the CKD-EPI 2020 equation that does not use a race coefficient. Blood Venous blood specimen / Unknown Venipuncture / Unknown 09/09/2024 9:57 AM EDT 09/09/2024 9:57 AM EDT Jose Alberto Quiroga MD LAB BLOOD ORDERABLES Final Result Performing Organization Address City/[facility] Co de Phone Number [facility] [address] [place] [address] * Hepatitis C Antibody - ED (09/07/2023 6:31 PM EDT) Pathologist [facility] Hepatitis C Antibody Negative Negative 09/07/2023 6:31 PM EDT [facility] Blood Venous blood specimen / Unknown 09/07/2023 5:51 PM EDT Aron Lala MD LAB BLOOD ORDERABLES Final Re sult Performing Organization Address [facility] Co de Phone Number [facility] [address] [place] [address] * ED HIV 1/2 Antibody/Antigen Screen w/Reflex to HIV 1/2 Differentiation (09/07/2023 6:31 PM EDT) Pathologist [facility] HIV 1 & 2 Antibody/Antigen Screen Non Reactive Non Reactive 09/07/2023 6:31 PM EDT [facility] Comment:Screening for HIV 1 & 2 antibodies, and P24 antigen is NONREACTIVE. No confirmatory testing is required. Blood Venous blood specimen / Unknown 09/07/2023 5:50 PM EDT Aron Lala MD LAB BLOOD ORDERABLES Final Re sult Performing Organization Address City/[facility] Co de Phone Number [facility] [address] [place] [address] from Last 3 Months or Most Recently Relevant to Health Maintenance Insurance [facility] MEDIC[facility] Advance Directives * Full Code (Latest Code Status on File) Date Activated Date Inactivated Comments 09/09/2024 10:02 AM 09/10/2024 12:42 PM Question Answer Comments I have reviewed the capacity from the link above and, if needed, have updated to appropriate status: No * Full Code Date Activated Date Inactivated Comments 09/07/2023 5:41 PM 09/08/2023 3:35 PM Question Answer Comments Patient has decision-making capacity? Yes Care Teams Geological Science Teacher Relationship Specialty Start Date End Date Shamika Roy, FUR PULLER [address] [place] [address] PCP - General 09/08/23
--- OUTSIDE RECORDS SUMMARY | 2024-09-21 08:04 | XMS_ITS | Encounter Summary ---
Author Organization Healthcare Address [address] [place] [address] Care Team Providers Care Non Emergency Services Ambulance Driver Name Role Phone Shamika Roy APRN Primary Care Provider [phone] Encounter Details Date Type Department Care Team (Late st Contact Info) Description 05/22/2023 Orders Only External Location [address] [place] [address] Provider, External Social History Tobacco Use Types [...] on filedocumented in this encounter Care Teams Non Emergency Services Ambulance Driver Relationship Specialty Start Date End Date Shamika Roy APRN [address] [place] [address] PCP - General 09/08/23 documented as of this encounter
--- OUTSIDE RECORDS SUMMARY | 2024-09-21 08:04 | XMS_ITS | Clinical Summary ---
Author Organization [facility] Address [address] [place] [address] Care Team Providers Care Certified Medical Technician Name Role Phone Carli Samayoa APRN - EMERGENCY SERVICE RESTORER Primary Care Provider Allergies Active Allergy Reactions [...] on 40 units of Lantus BID at [facility], Reported on 04/29/2020 insulin aspart (NOVOLOG FLEXPEN) [...] hours Active Cholecalciferol (VITAMIN D3) 1.25 MG (78232 UT) CAPS Take 1 tablet by mouth [...] Hernandez Spouse Primary Decision Maker Care Teams Certified Medical Technician Relationship Specialty Start Date End Date Carli Samayoa APRN - EMERGENCY SERVICE RESTORER [address] [place] [id number] PCP - General Nurse Practitioner 04/16/20
--- OUTSIDE RECORDS SUMMARY | 2024-09-21 08:04 | XMS_ITS | Encounter Summary ---
Author Organization Healthcare Address [address] [place] [address] Care Team Providers Care Chemical Inspector Name Role Phone Shamika Roy APRN Primary Care Provider [phone] Encounter Details Date Type Department Care Team (Late st Contact Info) Description 06/03/2023 Orders Only External Location [address] [place] [address] Provider, External Social History Tobacco Use Types [...] on filedocumented in this encounter Care Teams Chemical Inspector Relationship Specialty Start Date End Date Shamika Roy APRN [address] [place] [address] PCP - General 09/08/23 documented as of this encounter
--- OUTSIDE RECORDS SUMMARY | 2024-09-21 08:04 | XMS_ITS | Encounter Summary ---
Author Organization Healthcare Address [address] [place] [address] Care Team Providers Care College Counselor Name Role Phone Shamika Roy APRN Primary Care Provider [phone] Encounter Details Date Type Department Care Team (Late st Contact Info) Description 12/03/2023 Orders Only External Location [address] [place] [address] Mikey Hernandez MD [address] [place], [place] [id number] Social History Tobacco Use Types Packs/Day Years [...] place to sleep or slept in a [place] [facility] [place] facility (including now)? No 09/08/2023 Utilities Answer Date [...] documented as of this encounter Care Teams College Counselor Relationship Specialty Start Date End Date Shamika Roy APRN [address] [place] [address] PCP - General 09/08/23 documented as of this encounter
--- OUTSIDE RECORDS SUMMARY | 2024-09-21 08:04 | XMS_ITS | Encounter Summary ---
Author Organization Healthcare Address [address] [place] [address] Care Team Providers Care Certified Prosthetist Vice President Name Role Phone Shamika Roy APRN Primary Care Provider [phone] Encounter Details Date Type Department Care Team (Late st Contact Info) Description 04/16/2023 Lab Requisition [facility] [address] [place] [address] Tony Rios PA [address] [place] [address] Routine general medical examination at [...] EST Routine general medical examination at a [facility] care facility TSH Routine 04/16/2023 7:28 AM EST Routine general medical examination at a [facility] care facility FREE T4, PLASMA Routine 04/16/2023 7:28 AM EST Routine general medical examination at a [facility] care facility HEMOGLOBIN A1C Routine 04/16/2023 7:28 AM EST Routine general medical examination at a [facility] care facility LIPID PROFILE, PLASMA Routine 04/16/2023 7:28 AM EST Routine general medical examination at a [facility] facility COMPREHENSIVE METABOLIC PANEL, PLASMA Routine 04/16/2023 7:28 AM EST Routine general medical examination at a [facility] facility documented in this encounter Results * TSH (04/16/2023 7:28 AM EST) Thyroid Stimulating Hormone, Plasma 2.48 0.40 - 4.20 uIU/mL 04/16/2023 10:01 AM EST [facility] Blood Venous blood specimen / Unknown Venipuncture / Unknown 04/16/2023 7:28 AM EST 04/16/2023 8:22 AM EST us Tony FOWLER LAB BLOOD ORDERABLES Final Re sult [facility] [address] [place] [id number] * T4, free (04/16/2023 7:28 AM EST) Free T4, Plasma 1.3 0.8 - 1.7 ng/dL 04/16/2023 10:01 AM EST [facility] Blood Venous blood specimen / Unknown Venipuncture / Unknown 04/16/2023 7:28 AM EST 04/16/2023 8:22 AM EST us Tony FOWLER LAB BLOOD ORDERABLES Final Re sult [facility] [address] [place] [address] * (ABNORMAL) CBC and Differential (04/16/2023 7:28 AM EST) WBC Count 10.50(H) 3.70 - 10.30 10*3/uL LAB HEMATOLOGY METHOD 04/16/2023 9:38 AM EST [facility] RBC Count 4.77 4.60 - 6.10 10*6/uL LAB HEMATOLOGY METHOD 04/16/2023 9:38 AM EST [facility] HGB 13.5(L) 13.7 - 17.5 g/dL LAB HEMATOLOGY METHOD 04/16/2023 9:38 AM EST [facility] HCT 40.5 40.0 - 51.0 % LAB HEMATOLOGY METHOD 04/16/2023 9:38 AM EST [facility] Platelet Count 205 155 - 369 10*3/uL LAB HEMATOLOGY METHOD 04/16/2023 9:38 AM EST [facility] MCV 85 79 - 98 fL LAB HEMATOLOGY METHOD 04/16/2023 9:38 AM EST [facility] MCH 28.3 26.0 - 32.0 pg LAB HEMATOLOGY METHOD 04/16/2023 9:38 AM EST [facility] MCHC 33.3 30.7 - 35.5 g/dL LAB HEMATOLOGY METHOD 04/16/2023 9:38 AM EST [facility] RDW 13.1 11.5 - 14.5 % LAB HEMATOLOGY METHOD 04/16/2023 9:38 AM EST [facility] MPV 10.8 8.8 - 12.5 fL LAB HEMATOLOGY METHOD 04/16/2023 9:38 AM EST [facility] nRBC 0.0 <=0.0 per 100 WBCs LAB HEMATOLOGY METHOD 04/16/2023 9:38 AM EST [facility] Differential Type Automated LAB HEMATOLOGY METHOD 04/16/2023 9:38 AM EST [facility] Neutrophils % 48.0 % LAB HEMATOLOGY METHOD 04/16/2023 9:38 AM EST [facility] Lymphocytes % 40.0 % LAB HEMATOLOGY METHOD 04/16/2023 9:38 AM EST [facility] Monocytes % 8.0 % LAB HEMATOLOGY METHOD 04/16/2023 9:38 AM EST [facility] Eosinophils % 3.0 % LAB HEMATOLOGY METHOD 04/16/2023 9:38 AM EST [facility] Basophils % 1.0 % LAB HEMATOLOGY METHOD 04/16/2023 9:38 AM [facility] Immature Granulocytes % 0.0 % LAB HEMATOLOGY METHOD 04/16/2023 9:38 AM EST [facility] Neutrophils Absolute 5.04 1.60 - 6.10 10*3/uL LAB HEMATOLOGY METHOD 04/16/2023 9:38 AM EST [facility] Lymphocytes Absolute 4.21(H) 1.20 - 3.90 10*3/uL LAB HEMATOLOGY METHOD 04/16/2023 9:38 AM EST [facility] Monocytes Absolute 0.86 0.30 - 0.90 10*3/uL LAB HEMATOLOGY METHOD 04/16/2023 9:38 AM EST [facility] Eosinophils Absolute 0.30 0.00 - 0.50 10*3/uL LAB HEMATOLOGY METHOD 04/16/2023 9:38 AM EST [facility] Basophils Absolute 0.06 0.00 - 0.10 10*3/uL LAB HEMATOLOGY METHOD 04/16/2023 9:38 AM EST [facility] Immature Granulocytes Absolute 0.03 0.00 - 0.06 10*3/uL LAB HEMATOLOGY METHOD 04/16/2023 9:38 AM EST [facility] Blood Venous blood specimen / Unknown Venipuncture / Unknown 04/16/2023 7:28 AM EST 04/16/2023 8:09 AM EST Narrative [facility] - 04/16/2023 9:38 AM EST Therapeutic decision making should be based on absolute values, rather than percentages. us Tony Rios PA LAB BLOOD ORDERABLES Final Re sult [facility] [address] [place] [address] * (ABNORMAL) Hemoglobin A1c (04/16/2023 7:28 AM EST) Hemoglobin A1c 10.8(H) <5.7 % 04/16/2023 10:43 AM EST [facility] Blood Venous blood specimen / [...] Adults <6.0% Children and Adolescents <7.5% Source: [place] [employer]. Standards of medical care in diabetes,2017. Diabetes Care.2017:40 (suppl 1):S1-S135. HbA1c assay performed by an ion-exchange chromatography method that is certified traceable to the DCCT. us Tony FOWLER LAB BLOOD ORDERABLES Final Re sult [facility] [address] [place] [address] * (ABNORMAL) Lipid panel (04/16/2023 7:28 AM EST) Cholesterol, Plasma 86 <200 mg/dL 04/16/2023 10:01 AM EST [facility] Comment: Cholesterol Reference Range (age >17 years): Desirable <200 mg/dL Borderline 200 to 239 mg/dL Undesirable >239 mg/dL HDL 28(L) >=40 mg/dL 04/16/2023 10:01 AM EST [facility] Comment: HDL Cholesterol Reference Ranges (age >17 years): Female, acceptable > or = 50 mg/dL Male, acceptable > or = 40 mg/dL Triglycerides, Plasma 155(H) <150 mg/dL 04/16/2023 10:01 AM EST [facility] Comment: Triglyceride Reference Range (age >17 years): Desirable: <150 mg/dL Borderline high: 150 to 199 mg/dL High: 200 to 499 mg/dL Very high: >499 mg/dL Increased risk of pancreatitis: >1000 mg/dL Cholesterol/HDL Ratio 3 04/16/2023 10:01 AM EST [facility] LDL, Calculated 32 <100 mg/dL 10:01 AM EST [facility] Comment: LDL Cholesterol Reference Range (age [...] 12 hours? Unknown 04/16/2023 10:01 AM EST [facility] Blood Venous blood specimen / Unknown Venipuncture / Unknown 04/16/2023 7:28 AM EST 04/16/2023 8:22 AM EST us Tony FOWLER LAB BLOOD ORDERABLES Final Re sult [facility] [address] [place] [address] * (ABNORMAL) Comprehensive metabolic panel (04/16/2023 7:28 AM EST) Glucose, Plasma 222(H) 74 - 99 mg/dL 04/16/2023 10:01 AM [facility] BUN, Plasma 12 7 - 21 mg/dL 04/16/2023 10:01 AM [facility] Creatinine, Plasma 0.80 0.80 - 1.30 mg/dL 04/16/2023 10:01 AM [facility] BUN/Creatinine Ratio 15 04/16/2023 10:01 AM [facility] Sodium, Plasma 138 136 - 145 mmol/L 04/16/2023 10:01 AM [facility] Potassium, Plasma 4.2 3.7 - 4.8 mmol/L 04/16/2023 10:01 AM [facility] Chloride, Plasma 103 97 - 107 mmol/L 04/16/2023 10:01 AM [facility] CO2, Plasma 25 22 - 29 mmol/L 04/16/2023 10:01 AM [facility] Anion Gap 10 6 - 16 mmol/L 04/16/2023 10:01 AM [facility] Total Calcium, Plasma 9.1 8.9 - 10.2 mg/dL 04/16/2023 10:01 AM [facility] Total Protein 7.3 6.3 - 7.9 g/dL 04/16/2023 10:01 AM EST [facility] Albumin, Plasma 4.0 3.5 - 5.2 g/dL 04/16/2023 10:01 AM EST [facility] AST, Plasma 26 10 - 50 U/L 04/16/2023 10:01 AM [facility] ALT, Plasma 17 10 - 50 U/L 04/16/2023 10:01 AM EST [facility] Alkaline Phosphatase, Plasma 68 40 - 115 U/L 04/16/2023 10:01 AM EST [facility] Total Bilirubin, Plasma 0.6 0.2 - 1.1 mg/dL 04/16/2023 10:01 AM EST [facility] eGFRcr 108.5 mL/min/1.7 3m*2 04/16/2023 10:01 AM [facility] Comment:Reported eGFRcr in m L/min/1.73m2 is based the CKD-EPI 2020 equation that does not use a race coefficient. Blood Venous blood specimen / Unknown Venipuncture / Unknown 04/16/2023 7:28 AM EST 04/16/2023 8:22 AM EST Tony FOWLER LAB BLOOD ORDERABLES Final Re sult Performing Organization Address City/[facility]/ZIP Co de Phone Number [facility] [address] [place] [address] * Hepatitis panel, acute (04/16/2023 7:28 AM EST) Hepatitis B Surf Antigen Negative Negative 04/16/2023 10:47 AM EST [facility] Hepatitis C Antibody Negative Negative 04/16/2023 10:47 AM EST [facility] Hepatitis A Antibody IgM Negative Negative 04/16/2023 10:47 AM EST [facility] Hepatitis B Core Antibody IgM Negative Negative 04/16/2023 10:47 AM EST [facility] Blood Venous blood specimen / Unknown Venipuncture / Unknown 04/16/2023 7:28 AM EST 04/16/2023 8:25 AM EST Tony FOWLER LAB BLOOD ORDERABLES Final Re sult Performing Organization Address City/[facility]/ZIP Co de Phone Number [facility] [address] [place] [address] * (ABNORMAL) Serum Drug Screen (04/16/2023 7:28 AM EST) 9 Carboxy THC <5 <5 ng/mL 04/17/2023 9:32 PM EST [facility] Alprazolam <5 <5 ng/mL 04/17/2023 9:32 PM EST [facility] Amphetamine <10 <10 ng/mL 04/17/2023 9:32 PM EST [facility] Benzolyecgonine <20 <20 ng/mL 9:32 PM EST [facility] Buprenorphine <1 <1 ng/mL 04/17/2023 9:32 PM EST [facility] Butalbital <50 <50 ng/mL 04/17/2023 9:32 PM EST [facility] Clonazepam <5 <5 ng/mL 04/17/2023 9:32 PM EST [facility] Codeine <5 <5 ng/mL 04/17/2023 9:32 PM EST [facility] Diazepam <5 <5 ng/mL 04/17/2023 9:32 PM EST [facility] Fentanyl <1 <1 ng/mL 04/17/2023 9:32 PM [facility] Hydrocodone <2 <2 ng/mL 04/17/2023 9:32 PM EST [facility] Hydromorphone <5 <5 ng/mL 04/17/2023 9:32 PM EST [facility] Lorazepam 23(H) <5 ng/mL 04/17/2023 9:32 PM EST [facility] MDA <10 <10 ng/mL 04/17/2023 9:32 PM EST [facility] MDMA <10 <10 ng/mL 04/17/2023 9:32 PM [facility] Meperidine <5 <5 ng/mL 04/17/2023 9:32 PM [facility] Methadone <10 <10 ng/mL 04/17/2023 9:32 PM EST [facility] Methadone Metabolite <10 <10 ng/mL 03/2023 9:32 PM [facility] Methamphetamine <10 <10 ng/mL 9:32 PM [facility] Midazolam <5 <5 ng/mL 04/17/2023 9:32 PM [facility] Morphine <2 <2 ng/mL 04/17/2023 9:32 PM EST [facility] Norbuprenorphine <5 <5 ng/mL 04/17/19 9:32 PM EST [facility] Nordiazepam <10 <10 ng/mL 04/17/2023 9:32 PM EST [facility] Oxazepam <5 <5 ng/mL 04/17/2023 9:32 PM EST [facility] Oxycodone 12(H) <2 ng/mL 04/17/2023 9:32 PM EST [facility] Oxymorphone <2 <2 ng/mL 04/17/2023 9:32 PM EST [facility] Phenobarbital <50 <50 ng/mL 04/17/2023 9:32 PM EST [facility] Temazepam <5 <5 ng/mL 04/17/2023 9:32 PM EST [facility] Tramadol <20 <20 ng/mL 04/17/2023 9:32 PM EST [facility] Blood Venous blood specimen / Unknown Venipuncture / Unknown 04/16/2023 7:28 AM EST 04/16/2023 8:32 AM EST Narrative [facility] - 04/17/2023 9:32 PM EST Test performed by LC-MS/MS at the [facility]. This test was developed and its performance characteristics determined by [facility]. It has not been cleared or approved by the FDA. The laboratory is regulated under CLIA as qualified to perform high-complexity testing. This test is used for clinical purposes. us Tony FOWLER LAB BLOOD ORDERABLES Final Re sult [facility] [address] [place] [address] * Levetiracetam level (04/16/2023 7:28 AM EST) Levetiracetam (Keppra) 22.7 12.0 - 46.0 ug/mL 04/16/2023 9:29 PM EST [facility] Blood Venous blood specimen / Unknown Venipuncture / Unknown 04/16/2023 7:28 AM EST 04/16/2023 8:32 AM EST Narrative [facility] - 04/16/2023 9:29 PM EST Test performed by LC-MS/MS at the [facility]. This test was developed and its performance characteristics determined by [facility]. It has not been cleared or approved by the FDA. The laboratory is regulated under CLIA as qualified to perform high-complexity testing. This test is used for clinical purposes. Tony FOWLER LAB BLOOD ORDERABLES Final Re sult Performing Organization Address [facility] Co de Phone Number [facility] [address] [place] [address] * (ABNORMAL) Topiramate level (04/16/2023 7:28 AM EST) Topiramate <1.0(L) 2.0 - 20.0 ug/mL 04/16/2023 9:36 PM EST [facility] Blood Venous blood specimen / Unknown Venipuncture / Unknown 04/16/2023 7:28 AM EST 04/16/2023 8:32 AM EST Narrative [facility] - 04/16/2023 9:36 PM EST Topiramate Reference Ranges: Anticonvulsant: 5.0 to 20.0 ug/mL Psychiatric: 2.0 to 8.0 ug/mL Test performed by LC-MS/MS at the [facility]. This test was developed and its performance characteristics determined by [facility]. It has not been cleared or approved by the FDA. The laboratory is regulated under CLIA as qualified to perform high-complexity testing. This test is used for clinical purposes. Tony FOWLER LAB BLOOD ORDERABLES Final Re sult Performing Organization Address [facility] Co de Phone Number [facility] [address] [place] [address] documented in this encounter Visit Diagnoses Diagnosis Routine general medical examination at a health care facility documented in this encounter Care Teams Certified Prosthetist Vice President Relationship Specialty Start Date End Date Shamika Roy APRN [address] [place] [address] PCP - General 09/08/23 documented as of this encounter
--- OUTSIDE RECORDS SUMMARY | 2024-09-21 08:05 | XMS_ITS | Data Portability ---
Author Organization [facility] Address [address] [address] [place] [address] Care Team Providers Care Senior Integration Developer Name Role Phone KARISSA HENRY Primary Care [...] rapid strep group A, throat 2021 022 [place], [address], [place], [address], 11:33:19 lipid panel, serum 2021 022 [email or web address] [facility] (Registration ), [address] [place], [address], 2 12:27:40 HbA1c (hemoglobin A1c), blood 2021 022 [email or web address] 0 [facility] (Registration ), [address] [place], [address], 2 12:25:58 CMP, serum or plasma 2021 022 [email or web address] 0 [facility] (Registration ), [address] [facility] [place], [address], 12:27:11 rapid SARS CoV 2 Ag, QL IA, respiratory specimen [address], [address], [place], [address], 11:33:19 rapid flu (A+B) [address], [address], [place], [address], 11:33:19 lipid panel, serum 2021 022 [email or web address] 0 [facility] (Registration ), [address] [place], [address], 2 15:25:09 HbA1c (hemoglobin A1c), blood 2021 022 [email or web address] 0 [facility] (Registration ), [address] [place], [address], 15:23:16 CMP, serum or plasma 2021 022 [email or web address] 0 [facility] (Registration ), [address] [place], [address], 2 15:24:23 microalbumi n/creatinin e, mass ratio, urine 2021 022 [email or web address] 0 [facility] (Registration ), [address] [place] [address] [place], [address], 2 15:26:02 CBC w/ diff 2021 022 [email or web address] 0 [facility] (Registration ), [address] [place] [address] [place], [address], 2 15:24:44 lipid panel, serum 2021 022 [email or web address] 0 [facility] (Registration ), [address] [place] [address] [place], [address], 2 11:09:52 HbA1c (hemoglobin A1c), blood 2021 022 [email or web address] 0 [facility] (Registration ), [address] [place] [address] [place], [address], 2 11:09:52 CMP, serum or plasma 2021 022 [email or web address] 0 [facility] (Registration ), [address] [place] [address] [place], [address], 2 11:09:52 CBC w/ auto diff 2021 022 [email or web address] 0 [facility] (Registration ), [address] [place] [address] [place], [address], 2 11:09:52 TSH, serum or plasma 2021 022 [email or web address] 0 [facility] (Registration ), [address] [place] [address] [place], [address], 2 11:09:53 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 Surgeries None recorded. Imaging None recorded. Medication Orders amoxicillin 500 mg capsule [email or web address] [facility], [address] [place] [address], [address], 3 14:26:47 Tylenol 325 mg tablet 2021 022 [facility], [address] [place] [address], [address], 2 14:52:10 baclofen 10 mg tablet 2021 022 [facility], [address] [place] [address], [address], 2 14:52:13 baclofen 10 mg tablet 2021 022 [facility], [facility] [place], [address], 2 09:06:52 Novolog U-100 Insulin aspart 100 unit/mL subcutaneou s solution 2021 [facility], [facility] [place], [address], 2 09:06:53 BD Alcohol Swabs 2021 022 [facility], [address] [place] [address], [address], 09:06:52 rosuvastati n 10 mg tablet 2020 021 [facility], [address] [place] [address], [address], 16:17:04 losartan 50 mg tablet 2020 021 [facility], [address] [place] [address], [address], 15:22:32 hydroxyzine HCl 25 mg tablet [email or web address] [place] [address] Pharmacy, [address] [place] [address], [address], 14:28:23 Patient TargetsNo targets recorded. Patient Instructions Encounter Date Encounter Id Patient Instructions Last Modified By Organization Details Last Modified Time 01/31/2021 [id number] high blood pressure: care instructions Not available [...] or PRN Not available 01/31/2021 23:26:29 07/26/2021 [id number] Take medications as directed Eat low carb heart healthy/diabetic diet Exercise 30 min a day, 3-5 days a week Weight loss 1-2 lb per week Continue to monitor glucose and bp daily and bring results to next appt for review Obtain testing when fasting, will call with abnormal results F/U in 3 months or PRN Not available 07/26/2021 14:00:50 09/10/2021 [id number] headache: care instructions Not available 09/10/2021 14:52:06 [...] or PRN Not available 09/10/2021 14:54:48 03/12/2022 [id number] strep throat: care instructions Not available 03/12/2022 [...] Not available 03/12/2022 11:37:10 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 Referring Physician: Karissa Henry, Family Medicine, Encounter Date: 09/10/2021 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 1 Not Available [facility] (Pre Certs ) [address] [place], [address], 01/12/2021 23:52:59 01/13/20 21 01/12/2021 BASIC METAB OLIC PANEL chloride 104 mmol/ L 98-107 Not Available [facility] (Pre Certs ) [address] [place], [address], 01/12/2021 23:52:59 01/13/20 21 01/12/2021 BASIC METAB OLIC PANEL carbon dioxide 21 mmol/ L 22-30 low Not Available [facility] (Pre Certs ) [address] [place], [address], 01/12/2021 23:52:59 01/13/20 21 01/12/2021 BASIC METAB OLIC PANEL BUN 11 mg/dL 9-20 Not Available [facility] (Pre Certs ) [address] [place], [address], 01/12/2021 23:52:59 01/13/20 21 01/12/2021 BASIC METAB OLIC PANEL creatinine 0.9 mg/dL 0.66-1 .25 Not Available [facility] (Pre [facility] ) [address] [place], [address], 01/12/2021 23:52:59 01/13/20 21 01/12/2021 BASIC METAB OLIC PANEL glucose 321 mg/dL 74-100 high Not Available [facility] (Pre Certs ) [address] [place], [address], 01/12/2021 23:52:59 01/13/20 21 01/12/2021 BASIC METAB OLIC PANEL calcium 9.1 mg/dL 8.6-10 .3 Not Available [facility] (Pre Cert ) [address] [place], [address], 01/12/2021 23:52:59 01/13/20 21 01/12/2021 BASIC METAB OLIC PANEL anion gap 15.8 mmol/ L 8-16 Not Available [facility] (Pre Certs ) [address] [place], [address], 01/12/2021 23:52:59 01/13/20 21 01/12/2021 BASIC METAB [...] LATIO N IS NEEDE D. Not Available [facility] (Pre Certs ) [address], [address], 01/12/2021 23:52:59 09/11/19 22 09/10/2021 COMPR EHENS THERESA MET AZ sodium 142 mmol/ L 137-14 5 Not Available [facility] (Pre Certs ) [address] [place], [address], 09/10/2021 22:09:47 09/11/19 22 09/10/2021 COMPR EHENS THERESA MET [place] potassium 4.2 mmol/ L 3.4-5. 1 Not Available [facility] (Pre Certs ) [address] [place], [address], 09/10/2021 22:09:47 09/11/19 22 09/10/2021 COMPR EHENS THERESA MET [place] chloride 110 mmol/ L 98-107 high Not Available [facility] (Pre Certs ) [address] [place], [address], 09/10/2021 22:09:47 09/11/19 22 09/10/2021 COMPR EHENS THERESA MET [place] carbon dioxide 20 mmol/ L 22-30 low Not Available [facility] (Pre [facility] ) [address] [place], [address], 09/10/2021 22:09:47 09/11/19 22 09/10/2021 COMPR EHENS THERESA MET [place] BUN 10 mg/dL 9-20 Not Available [facility] (Pre Certs ) [address] [place], [address], 09/10/2021 22:09:47 09/11/19 22 09/10/2021 COMPR EHENS THERESA MET [place] creatinine 0.7 mg/dL 0.66-1 .25 Not Available [facility] ([facility] ) [address] [place], [address], 09/10/2021 22:09:47 09/11/19 22 09/10/2021 COMPR EHENS THERESA MET [place] glucose 161 mg/dL 74-100 high Not Available [facility] (Pre Cert ) [address] [place], [address], 09/10/2021 22:09:47 09/11/19 22 09/10/2021 COMPR EHENS THERESA MET [place] calcium 9.4 mg/dL 8.6-10 .3 Not Available [facility] (Pre Certs ) [address] [place], [address], 09/10/2021 22:09:47 09/11/19 22 09/10/2021 COMPR EHENS THERESA MET [place] total protein 7.6 g/dL 6.3-8. 2 Not Available [facility] (Pre Certs ) [address] [place], [address], 09/10/2021 22:09:47 09/11/19 22 09/10/2021 COMPR EHENS THERESA MET [place] albumin 4.6 g/dL 3.5-5. 0 Not Available [facility] (Pre Certs ) [address] [place], [address], 09/10/2021 22:09:47 09/11/19 22 09/10/2021 COMPR EHENS THERESA MET [place] globulin 3.0 g/dL 2.0-3. 5 Not Available [facility] (Pre Certs ) [address] [place], [address], 09/10/2021 22:09:47 09/11/19 22 09/10/2021 COMPR EHENS THERESA MET [place] A/G ratio 1.5 g/dL 1.0-2. 5 Not Available [facility] (Pre Certs ) [address] [place], [address], 09/10/2021 22:09:47 09/11/19 22 09/10/2021 COMPR EHENS THERESA MET [place] total bilirubin 0.6 mg/dL 0.2-1. 3 Not Available [facility] (Pre Certs ) [address] [place], [address], 09/10/2021 22:09:47 09/11/19 22 09/10/2021 COMPR EHENS THERESA MET [place] aspartate aminotransfe rase 32 U/L 17-59 Not Available [facility] (Pre Certs ) [address] [place], [address], 09/10/2021 22:09:47 09/11/19 22 09/10/2021 COMPR EHENS THERESA MET [place] alanine aminotransfe rase 20 U/L 0-49 Not Available [facility] (Pre Certs ) [address] [place], [address], 09/10/2021 22:09:47 09/11/19 22 09/10/2021 COMPR EHENS THERESA MET [place] alkaline phosphatase 91 U/L 38-126 Not Available [facility] (Pre Certs ) [address] [facility] [place], [address], 09/10/2021 22:09:47 09/11/19 22 09/10/2021 COMPR EHENS THERESA MET [place] anion gap 16.2 mmol/ L 8-16 high Not Available [facility] (Pre Certs ) [address] [place], [address], 09/10/2021 22:09:47 09/11/19 22 09/10/2021 COMPR EHENS THERESA MET [place] estimated GFR 121 < 90 mL/mi n/1.7 [...] LATIO N IS NEEDE D. Not Available [facility] (Pre Certs ) [address] [facility] [place], [address], 09/10/2021 22:09:47 09/11/19 22 09/10/2021 LIPID PROFI LE cholesterol 96 mg/dL 0-200 Not Available [facility] (Pre Certs ) [address] [place], [address], 09/10/2021 22:09:49 09/11/19 22 09/10/2021 LIPID PROFI LE triglyceride 172 mg/dL 0-149 high Not Available [facility] (Pre Certs ) [address] [place], [address], 09/10/2021 22:09:49 09/11/19 22 09/10/2021 LIPID PROFI LE high density lipoprotein 31 mg/dL 40-59 low HDL: HDL < 40 MG/DL = MAJOR RISK FACTO R FOR CAD. HDL >= 60 MG/DL = NEGAT THERESA RISK FACTO R FOR CAD. Not Available [facility] (Pre Certs ) [address] [place], [address], 09/10/2021 22:09:49 09/11/19 22 09/10/2021 LIPID PROFI [...] DIREC T LDL METHO D. Not Available [facility] (Pre Certs ) [address] [place], [address], 09/10/2021 22:09:49 09/11/19 22 09/10/2021 LIPID PROFI LE very low density lipoprotein 34.4 mg/dL 10-50 Not Available [facility] (Pre Certs ) [address] [place], [address], 09/10/2021 22:09:49 09/11/19 22 09/10/2021 LIPID PROFI LE LDL/HDL ratio 1.0 Not Available [facility] (Pre Certs ) [address] [place], [address], 09/10/2021 22:09:49 09/11/19 22 09/10/2021 MICRO ALBUM IN/CR EATIN INE RATIO microalbumin , random 400.9 mg/L less than-1 6.7 high MICRO ALBUM IN EXCRE TION RATE IS ONLY AVAIL ABLE ON 24 HR COLLE CTION S. Not Available [facility] (Pre Certs ) [address] [place], [address], 09/10/2021 23:45:26 09/11/19 22 09/10/2021 MICRO ALBUM IN/CR EATIN INE RATIO creatinine, urine, random 340.9 mg/dL 22-328 high Not Available [facility] (Pre Certs ) [address], [address], 09/10/2021 23:45:26 09/11/19 22 09/10/2021 MICRO ALBUM IN/CR EATIN INE RATIO microalbumin /creatinine ratio 117.6 mg/g less than-3 0 high Not Available [facility] (Pre Certs ) [address] [place], [address], 09/10/2021 23:45:26 09/11/19 22 09/10/2021 HEMOG LOBIN A1C WITH EAG hemoglobin A1C 8.7 % 0.0-5. 6 high GLYCO HEMOG LOBIN : DIABE TIC: >/= 6.5 % PREDI ABETI C: 5.7-6 .4 % GOAL FOR THERA PY FOR DIABE TIC CONTR OL: < 7.0 % Not Available [facility] (Pre Certs ) [address] [place], [address], 09/10/2021 23:43:11 09/11/19 22 09/10/2021 HEMOG LOBIN A1C WITH EAG estimated average glucose 203 mg/dL 74-100 high Not Available [facility] (Pre Certs ) [address] [place], [address], 09/10/2021 23:43:11 09/11/19 22 09/11/2021 CBC WITH AUTO DIFF WBC 15.5 x1000 5.4-9. 9 high Not Available [facility] (Pre [facility] ) [address] [place], [address], 09/11/2021 00:21:42 09/11/19 22 09/11/2021 CBC WITH AUTO DIFF RBC 4.98 x1000 000 4.16-5 .62 Not Available [facility] (Pre [facility] ) [address], [address], 09/11/2021 00:21:42 09/11/19 22 09/11/2021 CBC WITH AUTO DIFF hemoglobin 13.9 g/dL 13.2-1 6.5 Not Available [facility] ([facility] ) [address] [place], [address], 09/11/2021 00:21:42 09/11/19 22 09/11/2021 CBC WITH AUTO DIFF hematocrit 42.5 % 37.4-5 3.8 Not Available [facility] ([facility] ) [address], [address], 09/11/2021 00:21:42 09/11/19 22 09/11/2021 CBC WITH AUTO DIFF MCV 85.3 fL 80.5-9 6.9 Not Available [facility] ([facility] ) [address], [address], 09/11/2021 00:21:42 09/11/19 22 09/11/2021 CBC WITH AUTO DIFF MCH 27.9 pg 27.7-3 3.3 Not Available [facility] ([facility] ) [address] [place], [address], 09/11/2021 00:21:42 09/11/19 22 09/11/2021 CBC WITH AUTO DIFF MCHC 32.7 g/dL 32.8-3 5.0 low Not Available [facility] ([facility] ) [address] [place], [address], 09/11/2021 00:21:42 09/11/19 22 09/11/2021 CBC WITH AUTO DIFF RDW 13.9 % 11.6-1 4.8 Not Available [facility] ([facility] ) [address] [place], [address], 09/11/2021 00:21:42 09/11/19 22 09/11/2021 CBC WITH AUTO DIFF platelet count 238 x1000 129-33 2 Not Available [facility] ([facility] ) [address] [facility] [place], [address], 09/11/2021 00:21:42 09/11/19 22 09/11/2021 CBC WITH AUTO DIFF neutroph 64.5 % 40-70 Not Available [facility] ([facility] ) [address] [facility] [place], [address], 09/11/2021 00:21:42 09/11/19 22 09/11/2021 CBC WITH AUTO DIFF lymph% 25.0 % 15-45 Not Available [facility] ([facility] ) [address] [facility] [place], [address], 09/11/2021 00:21:42 09/11/19 22 09/11/2021 CBC WITH AUTO DIFF mono% 7.1 % 0-12 Not Available [facility] ([facility] ) [address] [facility] [place], [address], 09/11/2021 00:21:42 09/11/19 22 09/11/2021 CBC WITH AUTO DIFF eos% 2.4 % 0-5 Not Available [facility] ([facility] ) [address] [facility] [place], [address], 09/11/2021 00:21:42 09/11/19 22 09/11/2021 CBC WITH AUTO DIFF baso% 0.5 % 0-1 Not Available [facility] ([facility] ) [address] [facility] [place], [address], 09/11/2021 00:21:42 09/11/19 22 09/11/2021 CBC WITH AUTO DIFF Ig% 0.5 % 0.0-0. 5 NEW IMMAT URE GRANU LOCYT E REFER ENCE RANGE EFFEC TIVE 03/12. Not Available [facility] (Pre Certs ) [address] [place], [address], 09/11/2021 00:21:42 09/11/19 22 09/11/2021 CBC WITH AUTO DIFF absolute neutrophil count 10.0 x(10) 3/uL 1.8-7. 2 high INFAN TS NEUTR OPENI A: <0.25 x(10) 3/uL ADULT S MILD NEUTR OPENI A: 1.00- 1.80 x(10) 3/uL MODER ATE NEUTR OPENI A: 0.50- 1.0 x(10) 3/uL SEVER E NEUTR OPENI A: <0.50 x(10) 3/uL NEW ABSOL [place] TRIBE NEUTR OPHIL REFER ENCE RANGE EFFEC TIVE 03/12. Not Available [facility] (Pre Certs ) [address] [facility] [place], [address], 09/11/2021 00:21:42 09/11/19 22 09/11/2021 CBC WITH AUTO DIFF absolute lymphocyte count 3.9 x(10) 3/uL 1.1-2. 7 high NEW ABSOL [place] TRIBE LYMPH OCYTE REFER ENCE RANGE EFFEC TIVE 03/12. Not Available [facility] (Pre Certs ) [address] [place], [address], 09/11/2021 00:21:42 09/11/19 22 09/11/2021 CBC WITH AUTO DIFF plt est NORMAL Not Available [facility] (Pre Certs ) [address] [facility] [place], [address], 09/11/2021 00:21:42 09/11/19 22 09/11/2021 CBC WITH AUTO DIFF rbcmorph NORMAL Not Available [facility] (Pre Certs ) [address], [address], 09/11/2021 00:21:42 09/11/19 22 09/10/2021 LIPID PROFI LE cholesterol 96 mg/dL 0-200 Not Available [facility] (Pre Certs ) [address] [place], [address], 09/20/2021 09:17:15 09/11/19 22 09/10/2021 LIPID PROFI LE triglyceride 172 mg/dL 0-149 high Not Available [facility] (Pre Certs ) [address] [place], [address], 09/20/2021 09:17:15 09/11/19 22 09/10/2021 LIPID PROFI LE high density lipoprotein 31 mg/dL 40-59 low HDL: HDL < 40 MG/DL = MAJOR RISK FACTO R FOR CAD. HDL >= 60 MG/DL = NEGAT THERESA RISK FACTO R FOR CAD. Not Available [facility] (Pre Certs ) [address] [facility] [place], [address], 09/20/2021 09:17:15 09/11/19 22 09/10/2021 LIPID PROFI [...] DIREC T LDL METHO D. Not Available [facility] (Pre Certs ) [address] [place], [address], 09/20/2021 09:17:15 09/11/19 22 09/10/2021 LIPID PROFI LE very low density lipoprotein 34.4 mg/dL 10-50 Not Available [facility] (Pre Certs ) [address] [place], [address], 09/20/2021 09:17:15 09/11/19 22 09/10/2021 LIPID PROFI LE LDL/HDL ratio 1.0 Not Available [facility] (Pre Certs ) [address] [place], [address], 09/20/2021 09:17:15 03/12/20 22 03/12/2022 HEMOG LOBIN A1C WITH EAG hemoglobin A1C 8.8 % 0.0-5. 6 high GLYCO HEMOG LOBIN : DIABE TIC: >/= 6.5 % PREDI ABETI C: 5.7-6 .4 % GOAL FOR THERA PY FOR DIABE TIC CONTR OL: < 7.0 % Not Available [facility] (Pre Certs ) [address] [place], [address], 03/12/2022 13:50:21 03/12/20 22 03/12/2022 HEMOG LOBIN A1C WITH EAG estimated average glucose 206 mg/dL 74-100 high Not Available [facility] (Pre Certs ) [address] [place], [address], 03/12/2022 13:50:21 03/12/20 22 03/12/2022 COMPR EHENS THERESA MET [place] sodium 141 mmol/ L 137-14 5 Not Available [facility] (Pre Certs ) [address] [place], [address], 03/12/2022 13:57:52 03/12/20 22 03/12/2022 COMPR EHENS THERESA MET [place] potassium 4.1 mmol/ L 3.4-5. 1 Not Available [facility] (Pre Certs ) [address] [place], [address], 03/12/2022 13:57:52 03/12/20 22 03/12/2022 COMPR EHENS THERESA MET [place] chloride 106 mmol/ L 98-107 Not Available [facility] (Pre Certs ) [address] [place], [address], 03/12/2022 13:57:52 03/12/20 22 03/12/2022 COMPR EHENS THERESA MET [place] carbon dioxide 23 mmol/ L 22-30 Not Available [facility] (Pre Certs ) [address] [place], [address], 03/12/2022 13:57:52 03/12/20 22 03/12/2022 COMPR EHENS THERESA MET [place] BUN 17 mg/dL 9-20 Not Available [facility] (Pre [facility] ) [address] [place], [address], 03/12/2022 13:57:52 03/12/20 22 03/12/2022 COMPR EHENS THERESA MET [place] creatinine 1.1 mg/dL 0.66-1 .25 Not Available [facility] ([facility] ) [address] [place], [address], 03/12/2022 13:57:52 03/12/20 22 03/12/2022 COMPR EHENS THERESA MET [place] glucose 222 mg/dL 74-100 high Not Available [facility] ([facility] ) [address] [place], [address], 03/12/2022 13:57:52 03/12/20 22 03/12/2022 COMPR EHENS THERESA MET [place] calcium 9.8 mg/dL 8.6-10 .3 Not Available [facility] ([facility] ) [address] [place], [address], 03/12/2022 13:57:52 03/12/20 22 03/12/2022 COMPR EHENS THERESA MET [place] total protein 7.8 g/dL 6.3-8. 2 Not Available [facility] ([facility] ) [address] [place], [address], 03/12/2022 13:57:52 03/12/20 22 03/12/2022 COMPR EHENS THERESA MET [place] albumin 4.7 g/dL 3.5-5. 0 Not Available [facility] (Pre Certs ) [address] [place], [address], 03/12/2022 13:57:52 03/12/20 22 03/12/2022 COMPR EHENS THERESA MET [place] globulin 3.1 g/dL 2.0-3. 5 Not Available [facility] (Pre Certs ) [address] [place], [address], 03/12/2022 13:57:52 03/12/20 22 03/12/2022 COMPR EHENS THERESA [place] A/G ratio 1.5 g/dL 1.0-2. 5 Not Available [facility] (Pre Certs ) [address] [place], [address], 03/12/2022 13:57:52 03/12/20 22 03/12/2022 COMPR EHENS THERESA MET [place] total bilirubin 0.6 mg/dL 0.2-1. 3 Not Available [facility] (Pre Certs ) [address] [place], [address], 03/12/2022 13:57:52 03/12/20 22 03/12/2022 COMPR EHENS THERESA MET [place] aspartate aminotransfe rase 41 U/L 17-59 Not Available [facility] (Pre Certs ) [address] [place], [address], 03/12/2022 13:57:52 03/12/20 22 03/12/2022 COMPR EHENS THERESA MET [place] alanine aminotransfe rase 29 U/L 0-49 Not Available [facility] (Pre Certs ) [address] [place], [address], 03/12/2022 13:57:52 03/12/20 22 03/12/2022 COMPR EHENS THERESA MET [place] alkaline phosphatase 79 U/L 38-126 Not Available [facility] (Pre Certs ) [address] [place], [address], 03/12/2022 13:57:52 03/12/20 22 03/12/2022 COMPR EHENS THERESA MET [place] anion gap 16.1 mmol/ L 8-16 high Not Available [facility] (Pre Certs ) [address] [place], [address], 03/12/2022 13:57:52 03/12/20 22 03/12/2022 COMPR EHENS THERESA MET [place] estimated GFR 71 < 90 mL/mi n/1.7 [...] LATIO N IS NEEDE D. Not Available [facility] (Pre Certs ) [address] [facility] [place], [address], 03/12/2022 13:57:52 03/12/20 22 03/12/2022 LIPID PROFI LE cholesterol 88 mg/dL 0-200 Not Available [facility] (Pre Certs ) [address] [facility], [address], 03/12/2022 13:58:08 03/12/20 22 03/12/2022 LIPID PROFI LE triglyceride 275 mg/dL 0-149 high Not Available [facility] (Pre Certs ) [address] [place], [address], 03/12/2022 13:58:08 03/12/20 22 03/12/2022 LIPID PROFI LE high density lipoprotein 26 mg/dL 40-59 low HDL: HDL < 40 MG/DL = MAJOR RISK FACTO R FOR CAD. HDL >= 60 MG/DL = NEGAT THERESA RISK FACTO R FOR CAD. Not Available [facility] (Pre Certs ) [address] [place], [address], 03/12/2022 13:58:08 03/12/20 22 03/12/2022 LIPID PROFI [...] DIREC T LDL METHO D. Not Available [facility] (Pre Certs ) [address], [address], 03/12/2022 13:58:08 03/12/20 22 03/12/2022 LIPID PROFI LE very low density lipoprotein 55.0 mg/dL 10-50 high Not Available [facility] (Pre Certs ) [address] [place], [address], 03/12/2022 13:58:08 03/12/20 22 03/12/2022 LIPID PROFI LE LDL/HDL ratio 0.3 Not Available [facility] (Pre Certs ) [address] [place], [address], 03/12/2022 13:58:08 03/12/20 22 03/12/2022 rapid flu (A+B) Flu negati ve Not Available [place] [address], [place], [address], 03/12/2022 11:26:31 03/12/20 22 03/12/2022 rapid SARS CoV 2 Ag, QL IA, respi rator y speci men Rapid COVID-19 negati ve Not Available [place] [id number] [place] [address] [address], [place], [address], 03/12/2022 11:25:21 03/12/20 22 03/12/2022 rapid strep group A, throa t Strep negati ve Not Available [place] [address] [facility] [address], [place], [address], 03/12/2022 11:24:06 Result Notes None recorded. Problems Name Problem SNOMED Code Status Onset Date Resolution Date Notes Provider Name and Address Organization Details Recorded Time Diarrhea 19872726 Completed 201708/09/2022 Karissa Infante NP [address] [place] [address] [place], [address], [facility] [place] 3 14:27:44 Nausea 574168872 Completed 201703/05/2021 Karissa eHnry NP [address] [place] [address] [place], [address], [facility] [place] 1 14:28:54 Vomiting 788841544 Completed 201707/26/2021 Karissa Henry NP [address] [place] [address] [place], [address], [facility] [place] 2 08:31:57 Abdominal pain 62043912 Completed 201707/26/2021 Karissa Henry NP [address] [place] [address] [place], [address], [facility] [place] 2 08:30:34 Upper respirato ry infection 91572189 Completed 201707/26/2021 Karissa Henry NP [address] [place] [address] [place], [address], [facility] [place] 2 08:31:51 Influenza 9030237 Completed 201703/12/2022 Karissa Henry NP [address] [place] [address] [place], [address], [facility] [place] 2 11:16:58 Type 2 diabetes mellitus without complicat ion 323165327 Completed 201908/09/2022 Karissa Infante NP [address] [place] [address] [place], [address], [facility] [place] 3 14:33:57 Hyperlipi demia 22507444 Completed 201903/05/2021 Karissa Henry NP [address] [place] [address] [place], [address], [facility] [place] 1 14:29:03 Environme ntal allergy 894981677 Active 2019 Karissa Henry [address] [place], [address], [facility] [place] 2 08:31:08 Nausea and vomiting 42065702 Completed 201903/12/2022 Karissa Henry NP [address] [place] [address] [place], [address], [facility] [place] 2 11:17:35 Seizure disorder 595628677 Active 2019 Karissa Henry NP [address] [place] [address] [place], [address], [facility] [place] 2 08:31:39 Gastroeso phageal reflux disease without esophagit is 072621009 Active 2019 Karissa Henry NP [address] [place] [address] [place], [address], [facility] [place] 2 08:31:14 Mixed anxiety and depressiv e disorder 940630124 Active 2019 Karissa Henry NP [address] [place] [address] [place], [address], [facility] [place] 2 08:31:25 Insomnia 150738905 Active 2019 Karissa Henry NP [address] [place] [address] [place], [address], [facility] [place] 2 08:31:21 Essential hypertens ion 56429434 Active 2019 Karissa Henry NP [address] [place] [address] [place], [address], [facility] [place] 2 08:31:10 Dizziness 098009377 Completed 201908/09/2022 Karissa Infante NP [address] [place] [address] [place], [address], [facility] 3 14:27:52 Pruritic disorder 528509577 Completed 201908/09/2022 Karissa Infante NP [address] [place] [address] [place], [address], [facility] 3 14:28:13 Degenerat ion of spine 060215960 Completed 201908/09/2022 Karissa Infante NP [address] [place] [address] [place], [address], [facility] 3 14:27:41 Anxiety 10766163 Completed 201908/09/2022 Karissa Infante NP [address] [place] [address] [place], [address], [facility] 3 14:28:41 Neuropath y due to diabetes mellitus 517070927 Active 2019 Karissa Henry NP [address] [place] [address] [place], [address], [facility] 2 08:31:31 Cervical radiculop athy 06186867 Active 2019 Karissa Henry NP [address] [place] [address] [place], [address], [facility] 2 08:30:52 Hypokalem ia 55414665 Completed 201908/09/2022 Karissa Infante NP [address] [place] [address] [place], [address], [facility] 3 14:27:57 Chronic obstructi ve pulmonary disease 86498483 Active 2019 Karissa Henry NP [address] [place] [address] [place], [address], [facility] 2 08:30:54 Vitamin D deficienc y 40819846 Active 2019 Karissa Henry NP [address] [place] [address] [place], [address], [facility] 2 08:31:54 Spasm 90992328 Completed 202008/09/2022 Karissa Infante NP [address] [place] [address] [place], [address], [facility] [place] 3 14:28:19 Pain of shoulder region 78773278 Completed 202007/26/2021 Karissa Henry NP [address] [place] [address] [place], [address], [facility] [place] 2 08:31:43 Constipat ion 59364001 Completed 202008/09/2022 Karissa Infante NP [address] [place] [address] [place], [address], [facility] [place] 3 14:27:37 Depressiv e disorder 94216869 Active 2020 Karissa Henry NP [address] [place] [address] [place], [address], [facility] [place] 2 08:30:59 Radiculop athy due to lumbar intervert ebral disc disorder 825444427443 105 Active 2020 Karissa Henry NP [address] [place] [address] [place], [address], [facility] [place] 2 08:31:34 Cerebrova scular accident 629944188 Active 2020 Karissa Henry NP [address] [place] [address] [place], [address], [facility] [place] 2 08:30:48 Celluliti s of finger of right hand 315188233789 51098 Completed 202007/26/2021 Karissa Henry NP [address] [place] [address] [place], [address], [facility] [place] 2 08:30:43 Mixed hyperlipi demia 982327852 Active 2020 Karissa Henry NP [address] [place] [address] [place], [address], [facility] [place] 2 08:31:27 Late effects of cerebrova scular disease 447316470 Completed 201808/09/2022 Karissa Infante NP [address] [place] [address] [place], [address], [facility] [place] 3 14:28:03 Headache 04193023 Completed 202108/09/2022 Karissa Infante NP [address] [place] [address] [place], [address], [facility] [place] 3 14:27:26 Muscle pain 94136099 Completed 202108/09/2022 Karissa Infante NP [address] [place] [address] [place], [address], [facility] [place] 3 14:28:07 Atrial fibrillat ion 03546079 Active 2022 Karissa Infante NP [address] [place] [address] [place], [address], [facility] [place] 3 14:29:39 Type 2 diabetes mellitus 43821321 Active 2022 Karissa Infante NP [address] [place] [address] [place], [address], [facility] [place] 3 14:34:28 Problem Notes None recorded. Procedures Surgical History Date Name Laterality Status Provider Name and Address Organization Details Recorded Time Laparotomy completed [facility] 12:27:25 Back Surgery completed [facility] 01/03/2020 12:27:44 Tonsillectomy completed [facility] 01/03/2020 12:27:50 Imaging Results None [...] parad oxica l react ion Carol Hunter [facility] 12:08:28 5248 midazolam hydrochlo ride medicatio n Not available Not available Not available 05/19/2020 45370 8 RxNorm parad oxica l react ion Caroljoaquin gutierres, [facility] 12:08:55 86 aspirin medicatio n anaphylax is Not available Not available 01/27/2018 1191 [facility] 13:35:37 87 Non-stero idal anti-infl ammatory agent (product) medicatio n anaphylax is Not available Not available 01/27/2018 23189 005 SNOMED KARLEE BENNETT [facility], [facility] 8 13:36:19 Medications Name Sig Start Date [...] Available Not Available Not Available Daily Multivita min-Orient als tablet Take 1 tablet every day [...] in Arterial blood by Pulse oximetry Systolic And Diastolic Provider Name and Address Organization Details Last Updated DateTime 3 185.42 cm 31.7 kg/m2 539748. 17 g 98 [degF] 89 /min 16 /min 96 % 96 % 134/75 mm[Hg] Ludmila Chicas [address] [place] [address] [place], [address], [facility] 3 14:26:01 Date Recorded Body height Body mass index (BMI) Body weight Respiratory rate Heart rate Oxygen saturation Oxygen saturation in Arterial blood by Pulse oximetry Body temperature Systolic And Diastolic Provider Name and Address Organization Details Last Updated DateTime 2 185.42 cm 33.9 kg/m2 942586. 29 g 18 /min 102 /min 96 % 96 % 97.8 [degF] 157/82 mm[Hg] Tammyadal Herrmann [address] [place], [address], [facility] 2 13:57:12 Date Recorded Body height Body mass index (BMI) Body weight Body temperature Heart rate Respiratory rate Oxygen saturation Oxygen saturation in Arterial blood by Pulse oximetry Systolic And Diastolic Provider Name and Address Organization Details Last Updated DateTime 2 185.42 cm 33.2 kg/m2 174820. 78 g 98.1 [degF] 87 /min 16 /min 97 % 97 % 110/63 mm[Hg] Tammy Herrmann [address] [place], [address], [facility] 2 10:58:34 Social History Question Answer Notes LastModified by Organizat ion Details LastModified Time Tobacco Smoking Status Current Every Day Smoker Not Available [facility] 01/18/2020 03:35:24 What Was The Date Of Your Most Recent Tobacco Screening? 01/27/2018 [id number] Information not available 01/18/2020 How Much Tobacco Do You Smoke? 0.5 PPD [id number] Information not available 01/18/2020 Sex: Unknown Functional [...] Diagnosis ICD10 Code Diagnosis Note 207 DO CARLOS MichelleTE Rosemarie [address] [facility] [place] [address] 01/28/2018 12:02:53 02/02/2018 09:51:15 Cerebral infarction 430030347 I63.9 Records requested. Lumbar radiculopathy 128 316695 M54.16 Nausea and vomiting 1693 1999 R11.2 2772 [facility] [address] [facility] [address] 04/16/2018 10:30:30 04/16/2018 12:19:27 Late effects of cerebrovascular disease 910836265 I69.898 Following with appropriat e specialist s. Osteoarthritis of hip 23 7055598 M16.12 XR requested from [place]. 7861 [place] [address] [facility] [place] [address] 07/15/2018 09:02:01 07/15/2018 13:57:56 Late effects of cerebrovascular disease 718466850 I69.898 We had a thorough discussion about [...] health referrals sent. Generalize d convulsive epilepsy 01788583 G40.309 Refill provided Essential hypertension 05083541 I10 Directed to monitor BP daily - call with readings consistent ly greater than 130/90mmHg . Type 2 laisha betes mellitus without complication 574317396 E11.9 Referrals made for diabetic maintenanc e. Gastroesop hageal reflux disease without esophagitis 497870350 K21.9 With neurogenic nausea/vom iting and chronic reflux disease, Kingsley requires frequent position changes for comfort. Due to his conditions , his risk of aspiration is high. Per jazmine holm's recommenda tion, a hospital bed with head kept at 30 degrees or higher would be preferable . Liver enzy mes level above reference range 711130301 R74.8 Hypomagnesemia 501224742 E83.42 9047 Jerry Arauz DO [address] [place] [address], [place] [address] 08/06/2018 11:18:17 08/20/2018 09:08:56 Generalized convulsive epilepsy 40321027 G40.309 Continued seizure activity - will titrate dose to 1,500mg BID. Encouraged follow-up with neurology. Uncontrol ed type 2 diabetes mellitus 855217792 E11.65 Will add Jardiance and discussed Basal +1 dosing of Lantus and Novolog. [place] headache 956 29747 G44.53 Recommende d Kingsley go to nearest ED, but he refuses at this time. Is agreeable if symptoms worsen/per sist. With history of CVA, MRI warranted. 37515 Jerry Arauz DO [address] [place] [address], [place] [address] 08/31/2018 10:17:24 09/08/2018 11:38:21 Liver enzymes level above reference range 421425387 R74.8 We had a thorough discussion about his alcohol use and need to stop drinking. Given informatio n about local resources and possible inpatient detox. Referral to Dr. Santino Late effec ts of cerebrovascular disease 122447927 I69.898 We had a thorough discussion about [...] Home health referrals sent. Thrombocyt openic disorder 190252981 D69.6 Thiamine deficiency 3993 64034 E51.9 Likely due to poor nutrition and alcohol use. Folic acid deficiency 19 4033842 E53.8 Likely due to poor nutrition and alcohol use. [address] [place] [address] [place] [address] 10/15/2018 10:58:27 10/20/2018 02:17:44 Nausea 357926887 R11.0 Refill provided. Seizure disorder 7410896 02 G40.909 Seizures ongoing despite max Keppra use. Possible secondary effect of alcohol dependence . Will trial a small dose of Topamax to see if this provides relief. Follow-up with neurology. Uncontroll ed type 2 diabetes mellitus 888389323 E11.65 With labile blood glucose and complicati on secondary to blood thinner usage, will try CGM. Ataxia as sequela of cerebrovascular accident 7802920422 37831 I69.393 With complexity of his medical conditions , discussed placement into a prison facility. He is hesitant, but agreeable. Directed to call insurance and determine what requiremen ts are needed for placement. Call with questions or concerns. [address] [place] [address] [place] [address] 12/03/2018 10:54:57 12/07/2018 17:01:03 Paresthesia of upper limb 84357496 R20.2 Possible CTS vs. cervical radiculopa thy. Recommende d OTC wrist braces for sleep. EMG/NCS ordered. 25499 Leonidas Singer NP [place] [address] [place] [address] 07/20/2019 10:08:10 07/20/2019 16:49:58 Late effects of cerebrovascular disease 359350489 I69.90 Seizure disorder 3740803 02 G40.909 Nausea and vomiting 1693 2000 R11.2 Type 2 laisha betes mellitus without complication 925924926 E11.9 Environmental allergy 42 7290740 T78.49XA Hyperlipidemia 74165932 E78.5 Labs will be drawn per home care nurse when fasting Essential hypertension 23175684 I10 Mixed anxi ety and depressive disorder 364606689 F41.8 Gastroesop hageal reflux disease without esophagitis 891614156 K21.9 Insomnia 925364306 G47.0 0 Dizziness 116253939 R42 [address] [address] [address] [place] [address] 09/15/2019 15:43:11 09/22/2019 17:53:58 Activity of daily living (ADL) alteration 188173477 Z73.[address] [address] [facility] [place] [address] 01/03/2020 11:43:47 01/11/2020 08:36:04 Degeneration of spine 604092912 M47.9 Type 2 laisha betes mellitus without complication 957956135 E11.9 Insomnia 539139356 G47.0 0 Late effec ts of cerebrovascular disease 182051797 I69.90 Chronic ob structive pulmonary disease 67780620 J44.9 Gastroesop hageal reflux disease without esophagitis 884021993 K21.9 Hypokalemia 65439739 E87 .6 Cervical radiculopathy 87667368 M54.12 Essential hypertension 94748642 I10 Dizziness 455429999 R42 Seizure disorder 8588422 02 G40.909 Hyperlipidemia 64857344 E78.5 Mixed anxi ety and depressive disorder 862492065 F41.8 Neuropathy due to diabetes mellitus 467158898 E11.40 Anxiety 10601296 F41.9 Diarrhea 04741532 R19.7 Vitamin D deficiency [address] [address] [address] [place] [address] 02/29/2020 14:56:22 03/14/2020 10:07:04 Nausea and vomiting 03782652 R11.2 We will try a small dose of Reglan 3 times a day about 30 minutes to 1 hour prior to trying to eat. I will also send him for a gastroente rology referral in hopes that they would do an EGD. 76882 Leonidas Singer NP [facility] [address] [address] [place] [address] 05/19/2020 11:57:24 06/06/2020 08:41:35 Spasm 74706203 R25.2 MOSTLY UPPER EXTREMITIE S/ WEAKNESS/ PAIN IN SHOULDERS; requesting to change from Robaxin to baclofen Pain of [facility] 08989194 M25.519 c/o bilateral shoulder pain and he had some xrays done at [facility]; we will obtain a copy of these to send to Dr. Hector and obtain an orthopedic referral Constipation 49066721 K5 9.00 72954 Leonidas Singer NP [facility] [address] [address] [place] [address] 08/10/2020 14:48:26 11/06/2020 05:18:23 Type 2 diabetes mellitus without complication 070725169 E11.9 Depressive disorder 3548 9007 F32.9 INCREASING DULOXETINE AND RE-EVAL IN 1-2 MONTHS Insomnia 966201827 G47.0 0 STILL HAVING TROUBLE FALLING ASLEEP [address] [facility] [place] [address] [place] [address] 11/29/2020 13:18:06 12/20/2020 08:20:09 Radiculopathy due to lumbar intervertebral disc disorder 8935544846 82593 M51.16 Just discharged [facility]. Now resides at [facility].Pt is to continue with the pain management /Carli Samayoa NP at [facility]. he will continue care with her and will make an appointmen t. Until he can be seen by the pain management I can continue with the medication . Per pt, [facility] Boy[facility] for pain management was prescribin g all controlled substances per their policy. [place]AR[place] reviewed; last filled on 11/28 for 5 pills - Rx from at the [facility] so he can take meds until he [...] she will call in with refills. Headache 09322169 R51.9 Continue with the current medication regimen. Refills provided. Anxiety 88301165 F41.9 Has been taking 1 mg TID for anxiety and seizure d/o. States the dose was decreased to a half when he was admitted into the [facility] for unknown reason. Per pain management Guerrero (EDDIE), they did not see any indication /order from [facility] Boyce to change the dose to 0.5. pt has an appointmen t with the pain management on 12/26. Will start back the original dose of 1 mg TID. Seizure disorder 5551326 02 G40.909 Seen by neurology. Continue with the current regimen to manage seizure. has f/u appointmen t in February. Pt is to continue care with neurology for seizure management . No recent seizure episodes reported. Long-term drug therapy 229099167 Z79.899 UDS obtained today. Will call in Narcan as well. See below. Allergic r eaction to drug 392540567 T50.905D PT needs Epipen for allergy anaphylaxi s reactions. Long-term current use of opiate analgesic drug 5695688250 47605 Z79.891 On opioid for pain management along with benzo for seizure and anxiety management . Will call in Narcan. Pt is to f/u with pain management and continue with the current regimen per pain management . Diabetic p eripheral neuropathy 291112104 E11.[address] Quiroga for neuropathy and DM foot care. Pt is to resume care with the emu farm worker . Decreased sensation of bilateral feet, especially 2-4th toes bilaterall y, with monofilame nt test. Essential hypertension 88006669 I10 Has been seen buy Dr. Persaud at [facility] outpatient clinic for HTC, HDL and stroke management . Pt is to continue care with the cardiology . Cerebrovas cular accident 570939749 I63.9 Pt fairly does better with ambulation but may benefit from OT evaluation and treatment to restore normal function of extremitie s. Will refer to OT for eval/treat ment as approprjacqui shea [address]13 Karissa Henry NP [address] [address] 12/29/2020 14:33:46 01/02/2021 07:16:59 Cellulitis 991339834 L03.90 pt is a [facility] and is unable to have IV therapy. Type 2 laisha betes mellitus without complication 526199375 E11.9 [address]143 Karissa Henry NP [address] [address] 01/01/2021 15:52:23 01/04/2021 05:08:36 Cellulitis 654553067 L03.90 pt is a resident of the [facility] and is unable to have IV therapy. addendum 01-01-2021 : continue current treatment, ice, keep area clean and dry. f/u in office for any new or worsening symptoms [address] [address]atha Grimm [address] [address] 01/09/2021 13:57:59 01/21/2021 23:42:54 Cellulitis of finger of right hand 2932313773 3846498 L03.011 blood cx returned NGTD as of [...] Friday or Friday for cellulitis . Hypokalemia 34875097 E87 .6 As he will be on Bactrim for cellulitis , will stop potassium while on Bactrim. Note given to the pt. Will check potassium level on Friday. F/u with results. [address] Santos [address] [address] 01/12/2021 10:59:20 04/18/2021 13:47:03 31626 Karissa Henry NP [address] [address] 01/17/2021 09:51:55 01/22/2021 02:23:48 Cellulitis of finger of right hand 4057758460 6392511 L03.011 79685 Karissa Henry NP [address] [address] 01/31/2021 10:42:46 02/05/2021 08:22:10 Mixed hyperlipidemia 971108652 E78.2 Mixed anxi ety and depressive disorder 575181787 F41.8 caution with use of potassium. pt has taken both together for over a year. Essential hypertension 36500012 I10 [address]7596 Karissa Henry NP [address] [address] 07/26/2021 07:58:01 07/28/2021 21:59:04 Renewal of prescription 891106638 Z76.0 Uncontroll ed type 2 diabetes mellitus 933129418 E11.65 Spasm of back muscles 20 6119532 M62.830 Mixed hyperlipidemia 267 750346 E78.2 Long-term drug therapy 549676455 Z79.899 33587 Karissa Henry NP [address] [address] 09/10/2021 13:50:27 10/03/2021 19:32:23 Uncontrolled type 2 diabetes mellitus 393031827 E11.65 Visual disturbance 70588 001 H53.9 Muscle pain 77940052 M79 .10 Essential hypertension 48118398 I10 Mixed hyperlipidemia 267 271828 E78.2 Headache 12288749 R51.9 [id number] Karissa Henry NP [address] [address] 03/12/2022 10:40:42 03/23/2022 05:54:05 Cough 98443938 R05.9 Streptococ dae sore throat 29141673 J02.0 Uncontroll ed type 2 diabetes mellitus 579031043 E11.65 Mixed hyperlipidemia 267 964163 E78.2 [id number] JAY [place] [address] [place] [address] 08/09/2022 14:10:52 08/22/2022 08:51:59 Onychomycosis of toenails 941705884 B35.1 no sign of infection today, encouraged [...] 01/07/2024 2 [place] Kingsley Ramsey David [id number] 12/21/2019 1 HUMANA (PPO) Kingsley Ramsey Dvaid [id number] 01/03/2020 HUMANA (MEDICARE REPLACEMENT /ADVANTAGE - PPO) Kingsley Ramsey David [id number] 08/09/2022 [place] Kingsley Moreiraff [id number] 08/24/2022 1 [place] Kingsley Ramsey Hernandez [id number] 08/09/2022 [place] C[place] - RHC - FQHC Kingsley Ramsey Hernandez [id number] 09/17/2023 [place] ([place]IT[place] Kingsley Ramsey David [id number] 01/07/2024 1 [employer]ET[employer] BET[place] - DUAL ELIGIBLE (MEDICARE REPLACEMENT /ADVANTAGE - HMO) NONE Kingsley David [id number] Notes Date Note Type Note Provider Name and Address Organization Details Recorded Time 01/31/2021 text/html [facility]. pt states he has been doing well. medicaitons working well with no side effects. pt states he has taken hydroxyzine 25 mg as needed for a long time. he states when he was d/c [facility] this was changed down to 10 mg. he states medication works well for his insomnia when he was taking hydroxyzine 25 mg. he states the hydroxyzine 10 mg did not help and he had to take more than once dose to get some relief. pt states he is following with cardiology at [facility]. he states they were giving him lipitor and he was not supposed to be taking it because it caused muscle cramps and the community health consultant wanted him on crestor instead. he reports he is supposed to be on losartan 50 mg not 25 mg. pt states he needs a 30 day refill until he can f/u with community health consultant for continued treatment. he states he has [...] due to coronavirus pandemic. Patient was informed third-democrat applications may introduce privacy risk. Patient verbalized [...] and ended at 3:15. Karissa Henry NP [address] [place] [address] [place], [id number], [facility] [place] 01/31/2021 23:26:59 07/26/2021 text/html pt presents toda [...] due to coronavirus pandemic. Patient was informed third-democrat applications may introduce privacy risk. Patient verbalized [...] and ended at 9:01 Karissa Henry NP [address] [place] [address] [place], [id number], [facility] [place] 07/26/2021 14:01:18 09/10/2021 text/html pt presents lenny [...] he wants a referral to see an product director. eye sight is decreasing. worse in left [...] glucose ranging around 120-200 Karissa Henry NP [address] [place] [address] [place], [phone], [facility] [place] 09/10/2021 15:02:17 03/12/2022 text/html pt presents lenny [...] before that was 12.1 Karissa Henry NP [address] [place] [address] [place], [id number], [facility] [place] 03/12/2022 13:14:25 08/09/2022 text/html has lost 11 [...] it was fine then Karissa Infante NP [address] [place] [address] [place], [id number], [facility] [place] 08/09/2022 14:47:45
--- OUTSIDE RECORDS SUMMARY | 2024-09-21 08:05 | XMS_ITS | Encounter Summary ---
Author Organization Healthcare Address [address] [place] [address] Care Team Providers Care Industrial Engineering Analyst Name Role Phone Shamika Roy APRN Primary Care Provider [phone] Encounter Details Date Type Department Care Team (Late st Contact Info) Description 09/13/2024 Telephone [facility] [address] [place] [address] Linda Pepe [place] [id number] Social History Tobacco Use Types Packs/Day Years [...] place to sleep or slept in a snf (including now)? No 09/08/2023 Humiliation, Afraid, Rape, [...] 09/09/2024 How often do you attend chur or alevism services? Never 09/09/2024 Do you belong to any clubs o r organizations such as anglican groups, unions, fraternal or athletic groups, or [...] more drinks on one occasion? Never 09/09/2024 [facility] Health - Occupational Stress Questionnaire Answer Date [...] any time in the past 12 m [facility], were you homeless or living in a snf (including now)? No 09/09/2024 Utilities Answer Date [...] on file documented as of this encounter Miscellaneous Notes * Telephone Encounter - Linda Pepe - 09/13/2024 3:01 PM EDT Behavioral Health Call Back Note Kingsley Hernandez 1975 [id number] Best contact phone number: [phone] Discharge date and Time: 09/10/24 Call Questions: How are you doing since discharge: We want to remind you that you have a follow-up appointment with: Will you be able to keep this appointment? Have you been able to obtain your prescpription medication and take your medications as ordered? Do you have immediate concerns for your health or safety that cannot wait for your aftercare appointment? What actions are you taking to keep yourself safe? Additional comments/follow-up: Attempt to contect: 1st attempt no one answered. Date: 09/13/24 Start Time: End Time: Written/Dictated by Linda Pepe on 09/13/24 at 3:01 PM. documented in this encounter Plan of Treatment [...] documented as of this encounter Care Teams Industrial Engineering Analyst Relationship Specialty Start Date End Date Shamika Roy APRN [address] [place] [address] PCP - General 09/08/23 documented as of this encounter
--- OUTSIDE RECORDS SUMMARY | 2024-09-21 08:05 | XMS_ITS | Encounter Summary ---
Author Organization [facility] Address [address] [place] [address] Care Team Providers Care Caddie Name Role Phone Carli Samayoa APRN, CNP Primary Care Provider Reason for Visit * Reason Comments Medication Refill Encounter Details Date Type Department Care Team (Late st Contact Info) Description 07/25/2018 Refill [facility] [address] [place] [address] [place] [address] Linda Crowley MD [address] [place] [address], [address] [place], [place] [id number] Medication Refill Social History Tobacco Use Types [...] documented as of this encounter Care Teams Caddie Relationship Specialty Start Date End Date Carli Samayoa APRN - CNP [address] [facility] [address] [place] [address] PCP - General Nurse Practitioner 04/16/20 documented as of this encounter
--- OUTSIDE RECORDS SUMMARY | 2024-09-21 08:05 | XMS_ITS | Encounter Summary ---
Author Organization Healthcare Address [address] [place] [address] Care Team Providers Care Caustic Operator Name Role Phone Shamika Roy APRN Primary Care Provider [phone] Encounter Details Date Type Department Care Team (Late st Contact Info) Description 09/09/2024 Plan of Care Documentation [facility] Inpatient Psychiatry [address] [place] [address] Social History Tobacco Use Types Packs/Day Years [...] place to sleep or slept in a penitentiary (including now)? No 09/08/2023 Humiliation, Afraid, Rape, [...] How often do you attend chur or worship services? Never 09/09/2024 Do you belong to any clubs o r organizations such as tenriism groups, unions, fraternal or athletic groups, or [...] drinks on one occasion? Never 09/09/2024 [facility] - Occupational [...] any time in the past 12 m [facility], were you homeless or living in a penitentiary (including now)? No 09/09/2024 Utilities Answer Date [...] on file documented as of this encounter Functional Status * AUDIT-C Score Answer Date of Assessment Author 0 09/09/2024 11:44 AM Wan Hay * Question Answer Date of Assessment Author Q1: How often do you have a drink containing alcohol? Never 09/09/2024 11:44 AM Shakira Perry Q2: How many drinks containing alcohol do you have on a typical day when you are drinking? Patient does not drink 09/09/2024 11:44 AM Wan Perry Q3: How often do you have six or more drinks on one occasion? Never 09/09/2024 11:44 AM Shakira Perry * Over the past 2 weeks, how often have you been bothered by any of the following problems? Question Answer Date of Assessment Author Patient Health Questionnaire -2 Score 6 09/09/2024 6:29 AM Solitario Borrero RN * Over the past 2 weeks, how often have you been bothered by any of the following problems? Question Answer Date of Assessment Author Little interest or pleasure in doing things Nearly every day 09/09/2024 6:29 AM Bashir Borrero RN Feeling down, depressed, or hopeless Nearly every day 09/09/2024 6:29 AM EDT Solitario Alvarado RN Moving or speaking so slowly that other people could have noticed? Or the opposite - being so fidgety or restless that you have been moving around a lot more than usual. Not at all 09/09/2024 6:29 AM EDT Solitario Alvarado RN Thoughts that you would be better off or hurting yourself in some way Not at all 09/09/2024 6:29 AM EDT Solitario Alvarado RN documented as of this encounter Plan of [...] documented as of this encounter Care Teams Caustic Operator Relationship Specialty Start Date End Date Shamika Roy, PHOTOGRAPHY INTERN [address] [place] [address] PCP - General 09/08/23 documented as of this encounter
--- OUTSIDE RECORDS SUMMARY | 2024-09-21 08:05 | XMS_ITS | Encounter Summary ---
Author Organization Healthcare Address [address] [place] [address] Care Team Providers Care Salesperson Men[employer] Furnishings Name Role Phone Shamika Roy APRN Primary Care Provider [phone] [phone] Encounter Details Date Type Department Care Team (Late st Contact Info) Description 09/14/2024 Telephone [facility] Inpatient Psychiatry [address] [place] [address] Linda Pepe [place] [phone] Social History Tobacco Use Types Packs/Day Years [...] place to sleep or slept in a skilled nursing (including now)? No 09/08/2023 Humiliation, Afraid, Rape, [...] How often do you attend chur or islam services? Never 09/09/2024 Do you belong to any clubs o r organizations such as quaker groups, unions, fraternal or athletic groups, or [...] more drinks on one occasion? Never 09/09/2024 [facility] Health - Occupational Stress Questionnaire Answer Date [...] any time in the past 12 m [facility], were you homeless or living in a skilled nursing (including now)? No 09/09/2024 Utilities Answer Date [...] * Telephone Encounter - Linda Pepe - 09/14/2024 3:39 PM EDT Behavioral Health Call Back Note Kingsley Hernandez 1975 [id number] Best contact phone number: [phone] Discharge date and Time: 09/10/24 Call Questions: [...] yourself safe? Additional comments/follow-up: Attempt to contect: 2nd attempt no one answered. Date: 09/14/24 Start Time: End Time: Written/Dictated by Linda Pepe on 09/14/24 at 3:39 PM. documented in this encounter Plan of [...] documented as of this encounter Care Teams Salesperson Men'[employer] Furnishings Relationship Specialty Start Date End Date Shamika Roy APRN [address] [place] [address] PCP - General 09/08/23 documented as of this encounter
--- OUTSIDE RECORDS SUMMARY | 2024-09-21 08:05 | XMS_ITS | Encounter Summary ---
Author Organization Healthcare Address [address] [place] [address] Care Team Providers Care Freight Rate Analyst Name Role Phone Shamika Roy APRN Primary Care Provider [phone] [phone] Encounter Details Date Type Department Care Team (Latest Contact Info) Description 09/09/2024 Travel Social History Tobacco Use Types Packs/Day Years [...] in a [facility] (including now)? No 09/08/2023 Humiliation, Afraid, Rape, [...] often do you attend chur ch or orthodox services? Never 09/09/2024 Do you belong to any clubs o r organizations such as spiritism groups, unions, fraternal or athletic groups, or [...] more drinks on one occasion? Never 09/09/2024 [facility] - Occupational Stress Questionnaire Answer Date Recorded [...] any time in the past 12 m [facility], were you homeless or living in a [facility] (including now)? No 09/09/2024 Utilities Answer Date [...] hopeless Nearly every day 09/09/2024 6:29 AM Solitario Borrero RN Moving or speaking so slowly that other people could have noticed? Or the opposite - being so fidgety or restless that you have been moving around a lot more than usual. Not at all 09/09/2024 6:29 AM Solitario Borrero RN Thoughts that you would be better off or hurting yourself in some way Not at all 09/09/2024 6:29 AM Solitario Borrero RN documented as of this encounter Plan [...] documented as of this encounter Care Teams Freight Rate Analyst Relationship Specialty Start Date End Date Shamika Roy APRN [address] [place] [address] PCP - General 09/08/23 documented as of this encounter
[2024-09-21 08:06] LABS: Microscopic, Urine URINE MICROSCOPIC (MICROSCOPIC)
[2024-09-21 08:07] LABS: Hematocrit 43.9 % (42.0-52.0); Hemoglobin 15.3 g/dL (14.1-18.0); Immature Granulocytes % 0.4 %; Mean Corpuscular HGB Conc 34.9 g/dL (31.8-35.4); Mean Corpuscular Hemoglobin 29.8 pg (27.0-31.2); Mean Corpuscular Volume 85.4 fl (80-94); Nucleated Red Blood Cells % 0 %; Platelet Count 222 K/mm3 (142-424); Red Blood Count 5.14 M/mm3 (4.60-6.20); Red Cell Distribution Width-SD 38.6 fL; White Blood Count 19.8 K/mm3 (4.8-10.8)
[2024-09-21 08:10] LABS: VBG HCO3 19.7 mmol/L (23-30); VBG PCO2 37.7 mmol/L (35-51); VBG PH 7.34 mmol/L (7.31-7.41); VBG PO2 125.8 mmol/L (28-40)
[2024-09-21 08:11] LABS: Lactate Venous 2.1 mmol/L (0.4-2.0)
[2024-09-21 08:17] LABS: Alanine Aminotransferase 12 U/L (12-78); Albumin Level 4.2 g/dl (3.5-5.0); Albumin/Globulin Ratio 1.4 (1.1-1.8); Alkaline Phosphatase 47 U/L (38-126); Anion Gap 17.3 mEq/L (5-15); Aspartate Amino Transferase 27 U/L (17-59); Bilirubin,Total 0.6 mg/dl (0.2-1.3); Blood Urea Nitrogen 15 mg/dl (9-20); Calcium 9.6 mg/dl (8.4-10.2); Carbon Dioxide 26 mmol/L (22.0-30.0); Chloride 103 mmol/L (98-107); Creatinine,Serum 0.90 mg/dl (0.66-1.25); Estimated Glomerular Filt Rate 89 ml/min (>60); GFR (African American) 108 ML/MIN (>60); Globulin 3.1 g/dL (1.3-3.2); Glucose 111 mg/dl (74-100); Potassium 3.3 mmoL/L (3.5-5.1); Sodium 143 mmol/L (136-145); Total Protein,Serum 7.3 g/dl (6.3-8.2)
[2024-09-21 08:21] LABS: Bilirubin,Urine Negative (Negative); Color,Urine YELLOW (Yellow); Glucose,Urine (UA) 3+ (Negative); Ketones,Urine Negative (Negative); Leukocyte Esterase,Urine Negative (Negative); PH,Urine 6.0 (5.0-8.5); Protein,Urine 1+ (Negative); Specific Gravity, Urine 1.020 (1.005-1.030); Urobilinogen,Urine 0.2 EU/dl (0.2)
[2024-09-21 08:22] LABS: Acetaminophen < 10 ug/ml (10-30); Salicylate < 1.0 mg/dL (2.0-20.0)
[2024-09-21] MEDS: DEXTROSE 5%-LACTATED RINGERS 1,000 ML 250 ML IV ×3 (08:25→13:44)
[2024-09-21 08:26] LABS: Total Cells Counted 100
[2024-09-21 08:27] LABS: RBC Morphology Normal
[2024-09-21 08:32] LABS: Barbiturates Screen,Urine Negative ng/ml (<200)
[2024-09-21 08:33] LABS: Benzodiazepines Screen,Urine Negative ng/ml (<200)
[2024-09-21 08:34] LABS: Amphetamine/Metha Screen,Urine Negative ng/ml (<1000)
[2024-09-21 08:35] LABS: Troponin I < 0.01 ng/ml (0.00-0.034)
[2024-09-21 08:36] LABS: Methadone Screen,Urine Negative ng/ml (<300); Opiate Screen,Urine Positive ng/ml (<300)
[2024-09-21 08:36] LABS: ABG HCO3 21.9 mmhg (22.0-26.0); ABG PCO2 43.0 mmhg (35.0-45.0); ABG PH 7.32 mmol/L (7.35-7.45); ABG PO2 110.4 mmhg (80-100); ABG TCO2 23.2 mmhg (23-27); Lactate Arterial 1.2 mmol/L (0.4-2.0)
[2024-09-21 08:37] LABS: Phencyclidine Screen,Urine Negative ng/ml (<25)
--- NOTE | 2024-09-21 08:57 | PC.NURSE ---
TNR called and spoke to poison control for suicide overdose. per krupa with poison control: lantus/novalog - monitor glucose for 15-30 minutes, if below 70 give IV dextrose. keep blood glucose 120-200. baclofen - symptoms of overdose can mimic brain , supportive care, seizure precautions, loss of reflexes (can be present for multiple days). monitor glucose, neuro, heart rate and rhythm. krupa suggests to order a CK, and work on getting pt admitted somewhere.
[2024-09-21 08:58] LABS: WBC,Urine Occasional #/hpf (0-3)
[2024-09-21 09:12] LABS: Creatine Kinase 93 U/L (55-170)
--- NOTE | 2024-09-21 09:52 | PC.NURSE ---
pt arrived via ems at 0745 and placed in room 3, pt unresponsive with gcs of 3 per ems he lives at home with parents and has done this same thing in the past has hx of DM, cardiac, and pysch per ems they found an empty bottle of baclofen and empty vial of lantus and some insulin was out of regular vial ems placed opa and 18g left ac iv, fbs 47 ems gave 1 amp of d50, 1000 ml of ringers, 250ml normal saline upon arrival to ER fbs was 121 RT, ER MD and house sup at bedside RSI 0751 30 mg etomidate given ivp 150 mg succ given ivp new iv est 20 g right ac 7.5 et tube placed at 24 at the gum positive breath sounds and CO2 color change and entitle 0805 16 mongolian temp sensing manuel placed 0810 14 fr og tube placed at 45 0820 cxr confirmed placement of both tubes
--- NOTE | 2024-09-21 09:54 | PC.NURSE ---
call made to equipment operator warehouse for bed placement.
--- NOTE | 2024-09-21 10:20 | PC.NURSE ---
attempted to call report to icu
--- NOTE | 2024-09-21 10:50 | PC.NURSE ---
pt arrived to unit at this time. no family present at this time.
[2024-09-21 11:20] LABS: POC Glucose,Bedside 172 (70-110)
--- NOTE | 2024-09-21 11:22 | XR_ITS ---
FINAL REPORT TECHNIQUE: Single view chest CLINICAL HISTORY: og tube placement ETT placement FINDINGS: A single view of the chest was obtained. A loop recorder device is noted. There is an ET tube with the tip 6 cm superior to the gerardo. Tip of the NG tube terminates off the inferior margin of the film. The heart and mediastinum are within normal limits. The lungs are clear. There is no pneumothorax. IMPRESSION: No acute cardiopulmonary process. ET tube tip 6 cm superior to the gerardo. Reviewed, Interpreted and Dictated by Korey Robles MD Transcribed by Geeta Sotelo Authenticated and [facility]
--- NOTE | 2024-09-21 11:28 | EXP.PULM.CON ---
History of Present Illness History of present illness: Mr. Hernandez is a 49-year-old male with reported prior history of multiple suicide attempts presented today after possible intentional overdose as per the family with a GCS of 3 needing intubation mechanical ventilatory support for airway protection pulmonary was called for further evaluation and management. [facility] Disclaimer: The information contained in this section may have been updated after the patient was seen, as this information can be updated by other users. Medical History (Updated 09/21/24 @ 13:35 by Margaret Wynn MD) On mechanically assisted ventilation Drug overdose Depression Anxiety SOB (shortness of breath) Chest pain Abnormal findings on diagnostic imaging of heart and coronary circulation Abnormal nuclear cardiac imaging test History of tonsillitis Diabetes CVA (cerebral vascular accident) Skin induration Deviated septum Right maxillary sinus opacification Headache Chronic sinusitis Right sided facial pain Pain due to onychomycosis of toenail Neuropathy involving both lower extremities Bilateral foot pain Nail fungus Surgical History History of back surgery History of colon resection History of appendectomy History of laparotomy Family History Other Family history of diabetes mellitus Social History Smoking Status: Unknown if ever smoked alcohol intake: never substance use type: denies use current occupational status: retired Travel in the last 8 weeks?: None caffeine: No Have you lived/traveled outside [place] in past 30 days?: No Contact w/someone who lives/traveled outside [place] past 30 days?: No Exposure to someone with infectious disease in past 14 days?: No Do you have a fever (greater than 100.4 F or 38 C)?: No Have you tested positive for COVID-19?: No Exposed to someone with COVID-19 in past 14 days?: No Do you have a sore throat?: No Do you have a cough?: No Do you have any weakness?: No Do you have any diarrhea?: No Are you experiencing any unusual bleeding?: No Do you have any muscle aches/pain?: No Do you have any abdominal pain?: No Are you experiencing loss of taste or smell?: No Review of Systems Review of Systems Review of systems:: unable to obtain Pulmonology Exam Inpatient Vital signs and Labs for Last 24 Hours: Temp Pulse Resp BP Pulse Ox O2 Del Method FiO2 98.8 F 62 18 106/54 L 100 Mechanical Ventilation 50 09/21/24 10:27 09/21/24 10:27 09/21/24 10:27 09/21/24 10:27 09/21/24 10:15 09/21/24 10:27 09/21/24 08:17 Laboratory Results - last 24 hr 09/21/24 07:40: VBG pH 7.34, VBG pCO2 37.7, VBG pO2 125.8 H, VBG HCO3 19.7 L, VBG Total CO2 20.9 L, VBG O2 Saturation 97.9 H, VBG Base Excess -6.1 L, VBG Lactic Acid 2.1 H 09/21/24 07:52: Total Creatine Kinase 93, Urine Color Yellow, Urine Appearance Clear, Urine pH 6.0, Ur Specific Julian 1.020, Urine Protein 1+ A, Urine Glucose (UA) 3+, Urine Ketones Negative, Urine Blood Negative, Urine Nitrate Negative, Urine Bilirubin Negative, Urine Urobilinogen 0.2, Ur Leukocyte Esterase Negative, Urine RBC None, Urine WBC Occasional, Ur Squamous Epith Cells None, Urine Bacteria None, Urine Opiates Screen Positive H, Urine Methadone Screen Negative, Ur Barbituates Screen Negative, Ur Phencyclidine Scrn Negative, Ur Amphetamines Screen Negative, U Benzodiazepines Scrn Negative, Urine Cocaine Screen Negative, U Marijuana (THC) Screen Negative 09/21/24 08:33: ABG pH 7.32 L, ABG pCO2 43.0, ABG pO2 110.4 H, ABG HCO3 21.9 L, ABG Total CO2 23.2, ABG O2 Saturation 98, ABG Base Excess -4.2 L, ABG Lactate 1.2 09/21/24 11:06: POC Glucose 172 H 09/21/24 : WBC 19.8 H, RBC 5.14, Hgb 15.3, Hct 43.9, MCV 85.4, MCH 29.8, MCHC 34.9, RDW 12.4, Plt Count 222, MPV 10.4, Neut % (Auto) 77.1, Lymph % (Auto) 11.5, [place] % (Auto) 8.7, Eos % (Auto) 1.9, Baso % (Auto) 0.4, Neut # (Auto) 15.3 H, Lymph # (Auto) 2.3, [place] # (Auto) 1.7 H, Eos # (Auto) 0.4, Baso # (Auto) 0.1, Total Counted 100, Neutrophils % (Manual) 76, Lymphocytes % (Manual) 13, Monocytes % (Manual) 10 H, Metamyelocytes % 1.0, Platelet Estimate Normal, RBC Morphology Normal, Sodium 143, Potassium 3.3 L, Chloride 103, Carbon Dioxide 26, Anion Gap 17.3 H, BUN 15, Creatinine 0.90, Estimated GFR 89, Est GFR ( Amer) 108, Glucose 111 H, Calcium 9.6, Total Bilirubin 0.6, AST 27, ALT 12, Alkaline Phosphatase 47, Troponin I < 0.01, Total Protein 7.3, Albumin 4.2, Globulin 3.1, Albumin/Globulin Ratio 1.4, Salicylates < 1.0 L, Acetaminophen < 10 L, Plasma/Serum Alcohol < 10 I & O for Labs for Last 24 Hours: Intake & Output 09/18/24 09/19/24 09/20/24 09/21/24 23:59 23:59 23:59 23:59 Intake Total 1000 / 1000 Output Total 1500 / 1500 Balance -500 / -500 Weight 225 lb Microbiology Reports for the Last 24 Hours: Microbiology 09/21/24 08:10 Sputum - Endotracheal Tube Aspirate Gram Stain - Final Constitutional: Present severe distress Comment:: Intubated and Sedated Head: Present normocephalic and atraumatic Neck: Present normal inspection and trachea midline Respiratory: Present patient mechanically ventilated; Absent prolonged expiratory phase, rhonchi or wheezes Cardiac: Present S1/S2 and Bradycardia GI: Present soft; Absent distention or tenderness Skin: Present intact; Absent cyanosis Neuro: Absent alert, awake or oriented x 3 Comment:: Intubated and sedated Extremities: Present normal inspection; Absent clubbing or cyanosis Psychiatric: Present unable to assess Meds Home Medications and Allergies Home Medications ?Medication ?Instructions ?Recorded ?Confirmed ?Type levetiracetam 750 mg tablet 1,500 mg PO BID Seizures 08/15/22 09/21/24 History lorazepam 1 mg tablet 1 mg PO TID Seizures 08/15/22 09/21/24 History losartan 50 mg tablet 50 mg PO DAILY Hypertension 08/15/22 09/21/24 History pregabalin 150 mg capsule 150 mg PO TID Nerve Pain 08/15/22 09/21/24 History rosuvastatin 10 mg tablet 10 mg PO DAILY Cholesterol 08/15/22 09/21/24 History topiramate 25 mg tablet 25 mg PO HS Headache prevention 08/15/22 09/21/24 History insulin glargine 100 unit/mL 90 unit SQ BID 04/14/23 09/21/24 History subcutaneous solution (Lantus U-100 Insulin) clopidogrel 75 mg tablet (Plavix) 75 mg PO DAILY 05/06/23 09/21/24 History fenofibrate nanocrystallized 48 mg 48 mg PO HS 05/06/23 09/21/24 History tablet folic acid 400 mcg tablet 400 mg PO DAILY 05/06/23 09/21/24 History insulin aspart U-100 100 unit/mL 1 sliding scale dose SQ 05/06/23 09/21/24 History subcutaneous solution (Novolog USEASDIRECTD U-100 Insulin aspart) insulin syringe-needle U-100 1 mL #10 ea 05/06/23 09/16/24 History 31 gauge x 5/16 (BD Insulin Syringe Ultra-Fine) pantoprazole 20 mg tablet,delayed 20 mg PO DAILY PRN Heartburn 05/06/23 09/21/24 History release (Protonix) potassium chloride 10 mEq 10 meq PO DAILY 05/06/23 09/21/24 History capsule,extended release trazodone 50 mg tablet 50 mg PO HS 05/06/23 09/16/24 History baclofen 10 mg tablet 10 mg PO Q6HP PRN muscle spasms 06/17/23 09/21/24 History calcitriol 0.25 mcg capsule 0.25 mcg PO MOWEFR 03/24/24 09/21/24 History empagliflozin 25 mg tablet 25 mg PO DAILY 03/24/24 09/21/24 History (Jardiance) blood-glucose sensor (FreeStyle #1 ea 07/26/24 09/16/24 History Eugenie 3 Sensor device) flash glucose scanning reader #1 ea 07/26/24 09/16/24 History (FreeStyle Eugenie 2 [place]) metoprolol succinate 100 mg 100 mg PO DAILY 08/02/24 09/21/24 History tablet,extended release 24 hr isosorbide mononitrate 60 mg 60 mg PO DAILY #90 tabs 08/23/24 09/21/24 Rx tablet,extended release 24 hr oxycodone 10 mg tablet 10 mg PO Q4HP Moderate Pain (Scale 08/23/24 09/21/24 History Score 7/10) blood pressure monitor (Blood #1 ea 09/16/24 09/16/24 Rx Pressure Kit) ranolazine 1,000 mg 1,000 mg PO BID #60 tabs 09/16/24 09/21/24 Rx tablet,extended release,12 hr New Prescriptions to Start Prescriptions: Allergies Allergy/AdvReac Type Severity Reaction Status Date / Time aspirin Allergy Severe Anaphylaxis Verified 09/16/24 10:31 ibuprofen (From Motrin) Allergy Severe Anaphylaxis Verified 09/16/24 10:31 naproxen (From Aleve) Allergy Severe Anaphylaxis Verified 09/16/24 10:31 NSAIDS (Non-Steroidal Allergy Severe Anaphylaxis Verified 09/16/24 10:31 Anti-Inflamma bee venom protein (honey bee) Allergy Anaphylaxis Verified 09/16/24 10:31 metoclopramide (From Reglan) AdvReac Intermediate Agitated Verified 09/16/24 10:31 midazolam (From Versed) AdvReac Verified 09/16/24 10:31 Results Laboratory Findings 09/21/24 Unknown 09/21/24 Unknown ABG ABG pH 7.32 mmol/L (7.35-7.45) L 09/21/24 08:33 ABG pCO2 43.0 mmhg (35.0-45.0) 09/21/24 08:33 ABG pO2 110.4 mmhg (80-100) H 09/21/24 08:33 ABG O2 Saturation 98 % (90-100) 09/21/24 08:33 Abnormal lab findings: Abnormal Labs 09/21/24 09/21/24 09/21/24 07:40 07:52 08:33 WBC Neut # (Auto) [place] # (Auto) Monocytes % (Manual) ABG pH 7.32 L ABG pO2 110.4 H ABG HCO3 21.9 L ABG Base Excess -4.2 L VBG pO2 125.8 H VBG HCO3 19.7 L VBG Total CO2 20.9 L VBG O2 Saturation 97.9 H VBG Base Excess -6.1 L VBG Lactic Acid 2.1 H Potassium Anion Gap Glucose POC Glucose Urine Protein 1+ A Salicylates Urine Opiates Screen Positive H Acetaminophen 09/21/24 09/21/24 11:06 Unknown WBC 19.8 H Neut # (Auto) 15.3 H [place] # (Auto) 1.7 H Monocytes % (Manual) 10 H ABG pH ABG pO2 ABG HCO3 ABG Base Excess VBG pO2 VBG HCO3 VBG Total CO2 VBG O2 Saturation VBG Base Excess VBG Lactic Acid Potassium 3.3 L Anion Gap 17.3 H Glucose 111 H POC Glucose 172 H Urine Protein Salicylates < 1.0 L Urine Opiates Screen Acetaminophen < 10 L Assessment and Plan *Assessment and plan (1) Drug overdose: Status: Acute Category: Medical Code(s): T50.901A - Poisoning by unspecified drugs, medicaments and biological substances, accidental (unintentional), initial encounter (2) On mechanically assisted ventilation: Status: Acute Category: Medical Code(s): Z99.11 - Dependence on respirator [ventilator] status (3) Suicide attempt: Status: Acute Category: Medical Code(s): T14.91XA - Suicide attempt, initial encounter Plan Mr. Hernandez is a 49-year-old male with reported prior history of multiple suicide attempts presented today after possible intentional overdose as per the family with a GCS of 3 needing intubation mechanical ventilatory support for airway protection pulmonary was called for further evaluation and management. As per the family concern for baclofen and insulin overdose. Initially noted to have hypoglycemia received D50 and since then receiving D5 to 50 cc, has been hyperglycemic so far Home medications include Keppra, lorazepam, insulin trazodone, baclofen, pregabalin, oxycodone and losartan. CT head upon admission no acute intracranial abnormalities. Chest x-ray no acute airspace disease. Neutrophilic predominant leukocytosis. Hypokalemia 3.3. BUN/creatinine within normal limits. Blood gas upon admission 1.32 with a pCO2 of 43.0 and a PO2 of 110.4 Patient on examination not responding to verbal or painful stimuli. No gag or cough reflex. Pinpoint pupils. No rigidity noted. Muscular tone flaccid. Spontaneous respirations noted. Minimal ventilator settings. Plan: Continue mechanical ventilatory support. No sedation needed. Follow-up with mentation. Seizure precautions. Keppra 2 g loading dose along with 1 g twice daily Continue D5 at 250 cc/h. Monitor Accu-Cheks. Replace potassium with 20 mEq IV Initiate ceftriaxone and azithromycin. Follow-up blood and sputum culture results. DuoNebs every 6 scheduled F/u STAT EEG report. Repeat chest x-ray continue to show high ET tube position. Advance again by 2 cm on repeat chest x-ray Initial EKG no acute abnormalities. hemodynamically stable. Will monitor. Abdomen soft nondistended. Monitor urine output. - Continue mechanical ventilatory support - HOLD AnalgoSedation pending mentation improvement - VAP bundle Recommend elevate head of the bed at 30 to 45 degrees Recommend oral care with chlorhexidne Recommend GI ulcer prophylaxis - Famotidine 20mg IV BID Recommend chemical DVT prophylaxis Total critical care time spent on this patient is 35 minutes managing acute hypoxic respiratory failure needing mechanical ventilation. This time spent include reviewing test results including interpreting chest x-rays, labs and arterial blood gas, optimizing the ventilator settings,formulating plan of care, discussing the plan of care with the team and the nursing staff.
[2024-09-21] MEDS: IPRATROPIUM/ALBUTEROL 3 ML NEB IH ×3 (11:32→23:29)
--- NOTE | 2024-09-21 11:33 | PC.NURSE ---
Arrived to the ICU from the ER via stretcher @10:46
--- NOTE | 2024-09-21 12:00 | PC.NURSE ---
7.5 et tube, 26@gum (tube advance per RT and Dr. Wynn) chest xray confirmed placement. vent settings currently FIO2-50%, TV-420, R-18, peep-5. Pt has Propofol ordered if needed, pt currently GCS-6, medication held.
[2024-09-21 12:12] LABS: Reflex Lactic Add Lactic Reflex
--- NOTE | 2024-09-21 12:12 | HMH.PHAINT1 ---
Pharmacy Intervention Comments: HOME MEDICATION LIST VERIFIED USING LIST FROM OUTPATIENT PHARMACY AND CARDIOLOGY OFFICE LIST
[2024-09-21] MEDS: LACTATED RINGERS 1000ML 1,000 ML 100 ML IV (12:18)
[2024-09-21] MEDS: levETIRAcetam 2,000 MG in 0.9 % SODIUM CHLORIDE 100 ML 240 MG IV (12:18)
--- NOTE | 2024-09-21 13:00 | PC.NURSE ---
pt placed on EEG at this time.
[2024-09-21 13:19] LABS: POC Glucose,Bedside 180 (70-110)
[2024-09-21 13:35] LABS: Troponin I < 0.01 ng/ml (0.00-0.034)
[2024-09-21 14:11] LABS: POC Glucose,Bedside 172 (70-110)
--- NOTE | 2024-09-21 14:15 | PC.NURSE ---
spoke with poison control. they stated that baclofen overdose will mimic brain , including flacidness and loss of reflexes. this could last several days. also relayed about patient appearing to now have seizures, noted an allergy to versed. they stated that if its not a class wide allergy to try lorazepam, and last resort phenobarbital and md could give them a call back for suggestions on dosage.
--- NOTE | 2024-09-21 14:17 | EXP.HP ---
History of Present Illness *Admission Date: 09/21/24 *Reason for visit:: Unconscious, drug overdose *History of present illness: Kingsley Hernandez is a 49-year-old male with a medical history of multiple drug intentional overdoses/suicide attempts (last being 2 weeks ago, transferred to [facility]), major depression, insulin-dependent diabetes, seizure disorder, low back pain requiring multiple surgeries on chronic opiate therapy and work disability, obstructive sleep apnea, CVA, CAD with stent, GERD, hypertension who presents to the ED after being found unconscious around 6 AM by mother at home. Per mother at bedside, patient had gone to bed at 8 PM last night in apparently normal mood. She found him to be unconscious with nearly empty Humalog, glargine bottles and empty bottle of baclofen beside him in bed. Patient has had multiple episodes in the past overdosing on intentionally insulin. Upon further inquiry, patient's daughter encouraged patient to seek help before she visited him last night. Mother suspects this might have been a trigger. Patient was recently admitted at [facility] on 09/08/2024 where he stayed 3 to 4 days and discharged without medication changes. Mother states this is the third time in the last 2 years patient has attempted intentional suicide, and has had numerous episodes prior to then as well. Patient has been struggling with loneliness/isolation, lives with his mother, struggling with low back pain s/p multiple back surgeries requiring chronic opioid and baclofen therapy. Does not currently follow with a therapist, and upon review of home medications does not take any psychiatric medications. On arrival, patient had a GCS of 3 and was rapidly sedated intubated. Has not required sedation due to global encephalopathy from baclofen overdose. Poison control was contacted and recommended frequent Accu-Cheks and dextrose fluids. Case discussed with ED provider and decision was to admit patient for acute toxic encephalopathy from intentional baclofen and insulin overdose. [facility] Disclaimer: The information contained in this section may have been updated after the patient was seen, as this information can be updated by other users. Medical History (Updated 09/21/24 @ 13:35 by Margaret Wynn MD) On mechanically assisted ventilation Drug overdose Depression Anxiety SOB (shortness of breath) Chest pain Abnormal findings on diagnostic imaging of heart and coronary circulation Abnormal nuclear cardiac imaging test History of tonsillitis Diabetes CVA (cerebral vascular accident) Skin induration Deviated septum Right maxillary sinus opacification Headache Chronic sinusitis Right sided facial pain Pain due to onychomycosis of toenail Neuropathy involving both lower extremities Bilateral foot pain Nail fungus Surgical History History of back surgery History of colon resection History of appendectomy History of laparotomy Family History Other Family history of diabetes mellitus Social History Smoking Status: Unknown if ever smoked alcohol intake: never substance use type: denies use current occupational status: retired Travel in the last 8 weeks?: None caffeine: No Have you lived/traveled outside US in past 30 days?: No Contact w/someone who lives/traveled outside US past 30 days?: No Exposure to someone with infectious disease in past 14 days?: No Do you have a fever (greater than 100.4 F or 38 C)?: No Have you tested positive for COVID-19?: No Exposed to someone with COVID-19 in past 14 days?: No Do you have a sore throat?: No Do you have a cough?: No Do you have any weakness?: No Do you have any diarrhea?: No Are you experiencing any unusual bleeding?: No Do you have any muscle aches/pain?: No Do you have any abdominal pain?: No Are you experiencing loss of taste or smell?: No Other Medical History Have you received the Flu Vaccine for this season: No (unable to obtain information d/t pt being on vent, no family present) Have you received the Pneumonia Vaccine: No Meds Home Medications and Allergies Home Medications ?Medication ?Instructions ?Recorded ?Confirmed ?Type levetiracetam 750 mg tablet 1,500 mg PO BID Seizures 08/15/22 09/21/24 History lorazepam 1 mg tablet 1 mg PO TID Seizures 08/15/22 09/21/24 History losartan 50 mg tablet 50 mg PO DAILY Hypertension 08/15/22 09/21/24 History pregabalin 150 mg capsule 150 mg PO TID Nerve Pain 08/15/22 09/21/24 History rosuvastatin 10 mg tablet 10 mg PO DAILY Cholesterol 08/15/22 09/21/24 History topiramate 25 mg tablet 25 mg PO HS Headache prevention 08/15/22 09/21/24 History insulin glargine 100 unit/mL 90 unit SQ BID 04/14/23 09/21/24 History subcutaneous solution (Lantus U-100 Insulin) clopidogrel 75 mg tablet (Plavix) 75 mg PO DAILY 05/06/23 09/21/24 History fenofibrate nanocrystallized 48 mg 48 mg PO HS 05/06/23 09/21/24 History tablet folic acid 400 mcg tablet 400 mg PO DAILY 05/06/23 09/21/24 History insulin aspart U-100 100 unit/mL 1 sliding scale dose SQ 05/06/23 09/21/24 History subcutaneous solution (Novolog USEASDIRECTD U-100 Insulin aspart) insulin syringe-needle U-100 1 mL #10 ea 05/06/23 09/16/24 History 31 gauge x 5/16 (BD Insulin Syringe Ultra-Fine) pantoprazole 20 mg tablet,delayed 20 mg PO DAILY PRN Heartburn 05/06/23 09/21/24 History release (Protonix) potassium chloride 10 mEq 10 meq PO DAILY 05/06/23 09/21/24 History capsule,extended release trazodone 50 mg tablet 50 mg PO HS 05/06/23 09/16/24 History baclofen 10 mg tablet 10 mg PO Q6HP PRN muscle spasms 06/17/23 09/21/24 History calcitriol 0.25 mcg capsule 0.25 mcg PO MOWEFR 03/24/24 09/21/24 History empagliflozin 25 mg tablet 25 mg PO DAILY 03/24/24 09/21/24 History (Jardiance) blood-glucose sensor (FreeStyle #1 ea 07/26/24 09/16/24 History Eugenie 3 Sensor device) flash glucose scanning reader #1 ea 07/26/24 09/16/24 History (FreeStyle Eugenie 2 [place]) metoprolol succinate 100 mg 100 mg PO DAILY 08/02/24 09/21/24 History tablet,extended release 24 hr isosorbide mononitrate 60 mg 60 mg PO DAILY #90 tabs 08/23/24 09/21/24 Rx tablet,extended release 24 hr oxycodone 10 mg tablet 10 mg PO Q4HP Moderate Pain (Scale 08/23/24 09/21/24 History Score 7/10) blood pressure monitor (Blood #1 ea 09/16/24 09/16/24 Rx Pressure Kit) ranolazine 1,000 mg 1,000 mg PO BID #60 tabs 09/16/24 09/21/24 Rx tablet,extended release,12 hr New Prescriptions to Start Prescriptions: Allergies Allergy/AdvReac Type Severity Reaction Status Date / Time aspirin Allergy Severe Anaphylaxis Verified 09/16/24 10:31 ibuprofen (From Motrin) Allergy Severe Anaphylaxis Verified 09/16/24 10:31 naproxen (From Aleve) Allergy Severe Anaphylaxis Verified 09/16/24 10:31 NSAIDS (Non-Steroidal Allergy Severe Anaphylaxis Verified 09/16/24 10:31 Anti-Inflamma bee venom protein (honey bee) Allergy Anaphylaxis Verified 09/16/24 10:31 metoclopramide (From Reglan) AdvReac Intermediate Agitated Verified 09/16/24 10:31 midazolam (From Versed) AdvReac Verified 09/16/24 10:31 Exam Data for Last 24 hours Vital signs and Labs for Last 24 Hours: Temp Pulse Resp BP Pulse Ox O2 Del Method O2 Flow Rate 99.7 F H 67 14 141/74 H 97 Mechanical Ventilation 50 09/21/24 14:01 09/21/24 14:01 09/21/24 14:01 09/21/24 14:01 09/21/24 14:01 09/21/24 14:01 09/21/24 14:01 FiO2 50 09/21/24 13:26 Laboratory Results - last 24 hr 09/21/24 07:40: VBG pH 7.34, VBG pCO2 37.7, VBG pO2 125.8 H, VBG HCO3 19.7 L, VBG Total CO2 20.9 L, VBG O2 Saturation 97.9 H, VBG Base Excess -6.1 L, VBG Lactic Acid 2.1 H 09/21/24 07:52: Total Creatine Kinase 93, Urine Color Yellow, Urine Appearance Clear, Urine pH 6.0, Ur Specific [place] 1.020, Urine Protein 1+ A, Urine Glucose (UA) 3+, Urine Ketones Negative, Urine Blood Negative, Urine Nitrate Negative, Urine Bilirubin Negative, Urine Urobilinogen 0.2, Ur Leukocyte Esterase Negative, Urine RBC None, Urine WBC Occasional, Ur Squamous Epith Cells None, Urine Bacteria None, Urine Opiates Screen Positive H, Urine Methadone Screen Negative, Ur Barbituates Screen Negative, Ur Phencyclidine Scrn Negative, Ur Amphetamines Screen Negative, U Benzodiazepines Scrn Negative, Urine Cocaine Screen Negative, U Marijuana (THC) Screen Negative 09/21/24 08:33: ABG pH 7.32 L, ABG pCO2 43.0, ABG pO2 110.4 H, ABG HCO3 21.9 L, ABG Total CO2 23.2, ABG O2 Saturation 98, ABG Base Excess -4.2 L, ABG Lactate 1.2 09/21/24 11:06: POC Glucose 172 H 09/21/24 12:50: Troponin I < 0.01 09/21/24 13:12: POC Glucose 180 H 09/21/24 14:01: POC Glucose 172 H 09/21/24 : WBC 19.8 H, RBC 5.14, Hgb 15.3, Hct 43.9, MCV 85.4, MCH 29.8, MCHC 34.9, RDW 12.4, Plt Count 222, MPV 10.4, Neut % (Auto) 77.1, Lymph % (Auto) 11.5, Thomas % (Auto) 8.7, Eos % (Auto) 1.9, Baso % (Auto) 0.4, Neut # (Auto) 15.3 H, Lymph # (Auto) 2.3, Thomas # (Auto) 1.7 H, Eos # (Auto) 0.4, Baso # (Auto) 0.1, Total Counted 100, Neutrophils % (Manual) 76, Lymphocytes % (Manual) 13, Monocytes % (Manual) 10 H, Metamyelocytes % 1.0, Platelet Estimate Normal, RBC Morphology Normal, Sodium 143, Potassium 3.3 L, Chloride 103, Carbon Dioxide 26, Anion Gap 17.3 H, BUN 15, Creatinine 0.90, Estimated GFR 89, Est GFR ( Amer) 108, Glucose 111 H, Calcium 9.6, Total Bilirubin 0.6, AST 27, ALT 12, Alkaline Phosphatase 47, Troponin I < 0.01, Total Protein 7.3, Albumin 4.2, Globulin 3.1, Albumin/Globulin Ratio 1.4, Salicylates < 1.0 L, Acetaminophen < 10 L, Plasma/Serum Alcohol < 10 I & O for Last 24 hours: Intake & Output 07/05/25 07/06/25 07/07/25 07/08/25 23:59 23:59 23:59 23:59 Intake Total 1000 / 1000 Output Total 2175 / 2175 Balance -1175 / -1175 Weight 98.339 kg Microbiology Reports for the Last 24 Hours: Microbiology 09/21/24 08:10 Sputum - Endotracheal Tube Aspirate Gram Stain - Final Constitutional Comments: Encephalopathic/sedated and intubated. *Routine HEENT Exam Head: Present normocephalic Eye: Present EOMI and PERRL ENT: Present mucous membranes moist *Routine Neck Exam Neck: Present supple; Absent lymphadenopathy *Routine Respiratory Exam Respiratory: Present CTA bilaterally *Routine Cardiovascular Exam Cardiovascular: Present RRR *Routine Abdominal Exam Abdominal: Present soft and normoactive bowel sounds *Routine Rectal Exam Rectal:: deferred *Routine Genitalia Exam Genitalia:: deferred *Routine Extremities Exam Extremities: Absent cyanosis, clubbing or edema *Routine Skin Exam Skin: Present warm; Absent rash *Routine Neurological Exam Comments: Encephalopathic/sedated. Assessment and Plan *Assessment and plan (1) On mechanically assisted ventilation: Status: Acute Category: Medical Code(s): Z99.11 - Dependence on respirator [ventilator] status (2) Drug overdose: Status: Acute Category: Medical Code(s): T50.901A - Poisoning by unspecified drugs, medicaments and biological substances, accidental (unintentional), initial encounter (3) Baclofen overdose: Status: Acute Category: Medical Code(s): T42.8X1A - Poisoning by antiparkinsonism drugs and other central muscle-tone depressants, accidental (unintentional), initial encounter (4) Suicide attempt: Status: Acute Category: Medical Code(s): T14.91XA - Suicide attempt, initial encounter (5) Intentional overdose of insulin: Status: Acute Category: Medical Code(s): T38.3X2A - Poisoning by insulin and oral hypoglycemic [antidiabetic] drugs, intentional self-harm, initial encounter (6) Diabetes: Status: Acute Qualifiers: Diabetes mellitus type: type 2 Diabetes mellitus long term acute care registered nurse insulin use: with care home use Diabetes mellitus complication status: with circulatory complication Diabetes mellitus complication detail: with other circulatory complications Qualified Code(s): E11.59 - Type 2 diabetes mellitus with other circulatory complications; Z79.4 - long term acute care registered nurse (current) use of insulin Category: Medical Code(s): E11.9 - Type 2 diabetes mellitus without complications (7) Coronary artery disease: Status: Acute Qualifiers: Coronary Disease-Associated Artery/Lesion type: [place] artery [place] vs. transplanted heart: [place] heart Associated angina: with other forms of angina Qualified Code(s): I25.118 - Atherosclerotic heart disease of [place] coronary artery with other forms of angina pectoris Category: Medical Code(s): I25.10 - Atherosclerotic heart disease of [place] coronary artery without angina pectoris Plan Kingsley Hernandez is a 49-year-old male with a medical history of multiple drug intentional overdoses/suicide attempts (last being 2 weeks ago, transferred to [facility]), major depression, insulin-dependent diabetes, seizure disorder, low back pain requiring multiple surgeries on chronic opiate therapy and work disability, obstructive sleep apnea, CVA, CAD with stent, GERD, hypertension who presents to the ED after being found unconscious around 6 AM by mother at home. Per mother at bedside, patient had gone to bed at 8 PM last night in apparently normal mood. She found him to be unconscious with nearly empty Humalog, glargine bottles and empty bottle of baclofen beside him in bed. Patient has had multiple episodes in the past overdosing on intentionally insulin. Upon further inquiry, patient's daughter encouraged patient to seek help before she visited him last night. Mother suspects this might have been a trigger. Patient was recently admitted at [facility] on 09/08/2024 where he stayed 3 to 4 days and discharged without medication changes. Mother states this is the third time in the last 2 years patient has attempted intentional suicide, and has had numerous episodes prior to then as well. Patient has been struggling with loneliness/isolation, lives with his mother, struggling with low back pain s/p multiple back surgeries requiring chronic opioid and baclofen therapy. Does not currently follow with a therapist, and upon review of home medications does not take any psychiatric medications. On arrival, patient had a GCS of 3 and was rapidly sedated intubated. Has not required sedation due to global encephalopathy from baclofen overdose. Poison control was contacted and recommended frequent Accu-Cheks and dextrose fluids. Case discussed with ED provider and decision was to admit patient for acute toxic encephalopathy from intentional baclofen and insulin overdose. #Acute toxic encephalopathy #Multidrug intentional overdose #Suicide attempt #Mechanical ventilation ? Longstanding history of untreated major depression, multiple suicide attempts. Empty glargine, Humalog, baclofen bottles found bedside. ? Globally encephalopathic, not responsive to stimuli including pain. No signs of respiratory depression at this time, but was intubated due to GCS of 3. Reassuring ABG. ? Pulmonology critical care consulted, order EEG which showed global slowing consistent with baclofen overdose. ? Had 1 episode of seizure-like activity, responded well with IV Ativan 2 mg. ? Baclofen was recently filled 8 days ago, 120 pills of 10 mg. Clearance of this can take days. Will closely monitor. ? Continue D5/LR at 125 mL/h. Glucose currently 172, increase rate and use D50 as needed if patient becomes hypoglycemic. ? Plan to hold all sedation given encephalopathy and sedation from baclofen overdose. Propofol on standby if patient becomes agitated with mechanical ventilation. ? Famotidine 20 mg twice daily for GI prophylaxis. ? Continue Levine catheter. Monitor urine output. ? Lovenox 40 mg for DVT prophylaxis. #Major depression ? Untreated. Behavioral health consulted, plan to evaluate patient upon improvement of mentation. #Insulin-dependent diabetes ? Overdose as above. Hold insulin for now. Continue D5 as above. #Seizure disorder ? Continue IV Keppra 1500 mg twice daily. IV Ativan 2 mg as needed for breakthrough seizures. ? Did have 1 seizure-like episode after admission, responded to IV Ativan 2 mg. #CAD with stent #History of CVA ? Continue Plavix, statin through G-tube. #Chronic low back pain ? Takes oxycodone at home. Mother keeps this locked away. UDS positive for oxycodone, but low suspicion for this overdose as this is not accessible to patient. ? Patient does have mildly constricted pupils, will consider Narcan if there are signs of respiratory depression. ? Closely monitor for opioid withdrawal. #GERD ? Continue famotidine as above. #Hypertension ? Soft pressures at this time. Hold antihypertensives. Full code DVT prophylaxis: Lovenox 40 mg
[2024-09-21] MEDS: LORazepam 2MG/ML VIAL 2 MG IV ×3 (14:18→22:00)
--- NOTE | 2024-09-21 14:23 | PC.NURSE ---
pt's mom called wanting update on patient. no password set up at this time. informed pt is here and critical. pt's mom states she is going to try to come up later this evening.
[2024-09-21] MEDS: AZITHROMYCIN 500 MG in 0.9 % SODIUM CHLORIDE 250 ML 250 MG IV (15:12)
--- NOTE | 2024-09-21 15:39 | PC.NURSE ---
pt's mom at bedside, updated on poc. pt's mom states she would like to make a password bola.
[2024-09-21] MEDS: ACETAMINOPHEN 325MG TAB 650 MG PO ×2 (16:08→22:52)
--- NOTE | 2024-09-21 16:30 | PC.NURSE ---
Dr. Echols at bedside.
[2024-09-21 16:38] LABS: Lactic Acid Follow Up (RFLX 1) 1.3 mmol/L (0.7-2.1)
[2024-09-21 17:01] LABS: Troponin I < 0.01 ng/ml (0.00-0.034)
--- NOTE | 2024-09-21 17:42 | PC.NURSE ---
pt GCS 3, on vent. vent settings remain FIO2-50%, TV-420, Rate 18, Peep-5. pupils pinpoint nonreactive at this time. lung sounds cta. oral and et secretions thin during suctioning. 7.5 et tube 26@ gums, 18F OG 63 cm at gum. bowel sounds active. temp sensing f/c in placing and draining. Tmax 100.0. pt on 1:1 SI precautions. pt's mom did come and see pt this shift. patients mom states she helps to give patient his daily medication. mom states she keeps patients Oxycodone, Lyrica and Ativan locked up at home. per Mom pt is but states estranged. Mom states pt has a daughter and son who are also estranged. pt did have an EEG this shift awaiting report. pt did have seizure like activity involving extremities and was medicated per MAY.
[2024-09-21] MEDS: DEXTROSE 5%-LACTATED RINGERS 1,000 ML 125 ML IV (17:44)
--- NOTE | 2024-09-21 19:40 | PC.NURSE ---
Obtained a Phone call from patient's in [place], gave update on patient's condition after password/[place] was provided.
[2024-09-21] MEDS: NOREPINEPHRINE BITARTRATE/D5W 8 MG/250 ML PLAST..BAG 15 MG IV (21:16)
[2024-09-21] MEDS: FAMOTIDINE 20MG/2ML VIAL 20 MG IV (21:23)
[2024-09-21] MEDS: levETIRAcetam 1,000 MG in 0.9 % SODIUM CHLORIDE 100 ML 220 MG IV (21:24)
--- NOTE | 2024-09-21 21:28 | PC.NURSE ---
Obtained a Call from [facility] control, gave them updates on patient's condition thus far.
[2024-09-22] VITALS (82 sets, daily range): BP systolic 94–184; BP diastolic 52–109; PULSE 53–104; RESP 9–118; TEMP 36.6–37.9; O2SAT 95–100; BMI 31.5
--- NOTE | 2024-09-22 00:48 | PC.NURSE ---
After performing another assessment and after turning and repositioning patient, patient noted to have some generalized body jerking movement(myoclonus). Called and spoke with Eunice VARGAS and gave a update on patients condition and assessment findings. While reviewing labs with provider, no Lipid noted to be done for Propafol and no repeat ABG since am. New orders obtained for labs, ABG and medication for myoclonus.
[2024-09-22] MEDS: DEXTROSE 5%-LACTATED RINGERS 1,000 ML 125 ML IV ×3 (00:57→17:40)
[2024-09-22 01:06] LABS: ABG HCO3 22.3 mmhg (22.0-26.0); ABG PCO2 33.8 mmhg (35.0-45.0); ABG PH 7.44 mmol/L (7.35-7.45); ABG PO2 161.4 mmhg (80-100); ABG TCO2 23.4 mmhg (23-27)
[2024-09-22] MEDS: FENTANYL 100MCG/2ML VIAL 25 MCG IV ×2 (01:07→05:08)
[2024-09-22 01:37] LABS: Cholesterol 82 mg/dl (140-200); HDL Cholesterol 32 mg/dl (40-60); Triglycerides 199 mg/dl (30-150)
--- NOTE | 2024-09-22 02:04 | PC.NURSE ---
Called and spoke with Abdias VARGAS regarding ABG results and new orders to increase Peep to 7 and decrease Fio2 to 40%.
--- NOTE | 2024-09-22 03:46 | PC.NURSE ---
09/21/2024 2200: While turning the patient patient noted to begin to have abnormal tonic seizure activity with a mixture of extending and tete lower extremities, bucking the vent and causing a drop in o2, patient was given Ativan for this activity. 221: Patient was given Ativan at 2200 due to seizure activity yet patient's physical condition and with tonic posturing with jerking movements to the point that the patient was partially coming off the bed, patient was beginning to cough and joy the vent at this time with his eyes opening and closing, legs extending and then tete in addition to arms becoming more extended. Patient's HR becoming more elevated as well as the BP. With Ativan being unsuccessful Patient was placed on the Propafol drip per md orders. Please see EMAR for details in assessment. 2225: Even after the initiation of the propafol no change in patient's physical condition at this time, due to condition drip was increased to 10 from 5. 2252: Patient has a low grade temp, Tylenol given. 09/22/2024 Due to abnormal jerking movements noted, provider gave an order for pain medication and was carried out at 0107.
[2024-09-22 04:19] LABS: POC Glucose,Bedside 147 (70-110)
[2024-09-22 04:19] LABS: POC Glucose,Bedside 191 (70-110)
[2024-09-22 04:19] LABS: POC Glucose,Bedside 164 (70-110)
[2024-09-22 04:19] LABS: POC Glucose,Bedside 158 (70-110)
[2024-09-22 04:19] LABS: POC Glucose,Bedside 144 (70-110)
[2024-09-22 04:19] LABS: POC Glucose,Bedside 125 (70-110)
[2024-09-22 04:19] LABS: POC Glucose,Bedside 124 (70-110)
[2024-09-22 04:19] LABS: POC Glucose,Bedside 188 (70-110)
[2024-09-22 04:19] LABS: POC Glucose,Bedside 138 (70-110)
[2024-09-22 04:19] LABS: POC Glucose,Bedside 167 (70-110)
[2024-09-22 04:19] LABS: POC Glucose,Bedside 180 (70-110)
[2024-09-22 04:19] LABS: POC Glucose,Bedside 185 (70-110)
[2024-09-22 04:19] LABS: POC Glucose,Bedside 131 (70-110)
[2024-09-22 04:19] LABS: POC Glucose,Bedside 169 (70-110)
[2024-09-22 05:14] LABS: ABG HCO3 23.7 mmhg (22.0-26.0); ABG PCO2 37.0 mmhg (35.0-45.0); ABG PH 7.43 mmol/L (7.35-7.45); ABG PO2 130.5 mmhg (80-100); ABG TCO2 24.9 mmhg (23-27)
[2024-09-22 05:33] LABS: Hematocrit 41.0 % (42.0-52.0); Hemoglobin 13.8 g/dL (14.1-18.0); Immature Granulocytes % 0.5 %; Mean Corpuscular HGB Conc 33.7 g/dL (31.8-35.4); Mean Corpuscular Hemoglobin 29.1 pg (27.0-31.2); Mean Corpuscular Volume 86.3 fl (80-94); Nucleated Red Blood Cells % 0 %; Platelet Count 196 K/mm3 (142-424); Red Blood Count 4.75 M/mm3 (4.60-6.20); Red Cell Distribution Width-SD 39.6 fL; White Blood Count 15.7 K/mm3 (4.8-10.8)
[2024-09-22] MEDS: IPRATROPIUM/ALBUTEROL 3 ML NEB IH ×3 (05:55→18:23)
[2024-09-22 06:04] LABS: Alanine Aminotransferase 11 U/L (12-78); Albumin Level 3.4 g/dl (3.5-5.0); Albumin/Globulin Ratio 1.3 (1.1-1.8); Alkaline Phosphatase 50 U/L (38-126); Anion Gap 14.5 mEq/L (5-15); Aspartate Amino Transferase 19 U/L (17-59); Bilirubin,Total 0.6 mg/dl (0.2-1.3); Blood Urea Nitrogen 8 mg/dl (9-20); Calcium 8.8 mg/dl (8.4-10.2); Carbon Dioxide 24 mmol/L (22.0-30.0); Chloride 109 mmol/L (98-107); Creatinine Clearance Estimated 149 mL/min (50-200); Creatinine,Serum 0.80 mg/dl (0.66-1.25); Estimated Glomerular Filt Rate 102 ml/min (>60); GFR (African American) 123 ML/MIN (>60); Globulin 2.6 g/dL (1.3-3.2); Glucose 152 mg/dl (74-100); Magnesium 1.5 mg/dl (1.6-2.3); Potassium 3.5 mmoL/L (3.5-5.1); Sodium 144 mmol/L (136-145); Total Protein,Serum 6.0 g/dl (6.3-8.2)
[2024-09-22] MEDS: FAMOTIDINE 20MG/2ML VIAL 20 MG IV ×2 (08:30→20:19)
[2024-09-22] MEDS: SODIUM CHLORIDE 0.9% 10ML VIAL 8 ML IV (08:30)
[2024-09-22] MEDS: CLOPIDOGREL 75MG TAB 75 MG PO (08:32)
--- NOTE | 2024-09-22 08:46 | PC.NURSE ---
patient has preventive dressings on his buttocks and heels. patient also has heel protectors on. upper extremities are elevated by pillows and the head of the bed is at 30 degrees per aspiration precautions. patient also has seizure has per seizure precaution protocol. staff is sitting one on one with patient, charting at Q15min. intervals per suicide precaution protocol. bed alarm is on and a temp. sensing manuel is in place to continuously monitor core temperature.
[2024-09-22] MEDS: FENTANYL CITRATE/PF 1,000 MCG in 0.9 % SODIUM CHLORIDE 80 ML 1 MCG IV (09:01)
[2024-09-22] MEDS: levETIRAcetam 1,500 MG in 0.9 % SODIUM CHLORIDE 100 ML 220 MG IV ×2 (09:15→21:41)
--- NOTE | 2024-09-22 09:53 | P.PN_ITS ---
Subjective *Date: 09/22/24 *Time: 12:10 Interval history: No acute respiratory events overnight. Pulmonology Exam Inpatient Vital signs and Labs for Last 24 Hours: Temp Pulse Resp BP Pulse Ox O2 Del Method O2 Flow Rate 99.1 F 87 13 149/76 H 98 Mechanical Ventilation 50 09/22/24 09:20 09/22/24 09:20 09/22/24 09:20 09/22/24 09:20 09/22/24 09:20 09/22/24 09:20 09/21/24 14:01 FiO2 30 09/22/24 09:01 Laboratory Results - last 24 hr 09/21/24 11:06: POC Glucose 172 H 09/21/24 12:50: Lactate 1.3, Troponin I < 0.01 09/21/24 13:12: POC Glucose 180 H 09/21/24 14:01: POC Glucose 172 H 09/21/24 14:55: POC Glucose 164 H 09/21/24 15:53: POC Glucose 180 H 09/21/24 16:19: Troponin I < 0.01 09/21/24 16:56: POC Glucose 188 H 09/21/24 18:01: POC Glucose 169 H 09/21/24 19:00: POC Glucose 158 H 09/21/24 20:08: POC Glucose 131 H 09/21/24 21:07: POC Glucose 125 H 09/21/24 21:52: POC Glucose 124 H 09/21/24 22:53: POC Glucose 138 H 09/22/24 00:24: POC Glucose 167 H 09/22/24 00:57: POC Glucose 144 H 09/22/24 01:05: ABG pH 7.44, ABG pCO2 33.8 L, ABG pO2 161.4 H, ABG HCO3 22.3, ABG Total CO2 23.4, ABG O2 Saturation 99, ABG Base Excess -1.8 09/22/24 01:08: Triglycerides 199 H, Cholesterol 82 L, LDL Cholesterol Direct < 30.00 L, VLDL Cholesterol 40, HDL Cholesterol 32 L, Cholesterol/HDL Ratio 2.6 09/22/24 02:14: POC Glucose 147 H 09/22/24 03:02: POC Glucose 191 H 09/22/24 04:09: POC Glucose 185 H 09/22/24 04:51: WBC 15.7 H, RBC 4.75, Hgb 13.8 L, Hct 41.0 L, MCV 86.3, MCH 29.1, MCHC 33.7, RDW 12.6, Plt Count 196, MPV 10.9 H, Neut % (Auto) 75.0, Lymph % (Auto) 13.9, Alfalfa % (Auto) 9.6 H, Eos % (Auto) 0.6, Baso % (Auto) 0.4, Neut # (Auto) 11.7 H, Lymph # (Auto) 2.2, [place]alf[place] # (Auto) 1.5 H, Eos # (Auto) 0.1, Baso # (Auto) 0.1, Sodium 144, Potassium 3.5, Chloride 109 H, Carbon Dioxide 24, Anion Gap 14.5, BUN 8 L D, Creatinine 0.80, Estimated Creat Clear 149, Estimated GFR 102, Est GFR ( Amer) 123, Glucose 152 H D, Calcium 8.8, Magnesium 1.5 L, Total Bilirubin 0.6, AST 19 D, ALT 11 L, Alkaline Phosphatase 50, Total Protein 6.0 L, Albumin 3.4 L D, Globulin 2.6, Albumin/Globulin Ratio 1.3 09/22/24 05:01: ABG pH 7.43, ABG pCO2 37.0, ABG pO2 130.5 H, ABG HCO3 23.7, ABG Total CO2 24.9, ABG O2 Saturation 98, ABG Base Excess -0.7 Temp Pulse Resp BP Pulse Ox O2 Del Method FiO2 98.8 F 62 18 106/54 L 100 Mechanical Ventilation 50 09/21/24 10:27 09/21/24 10:27 09/21/24 10:27 09/21/24 10:27 09/21/24 10:15 09/21/24 10:27 09/21/24 08:17 Laboratory Results - last 24 hr 09/21/24 07:40: VBG pH 7.34, VBG pCO2 37.7, VBG pO2 125.8 H, VBG HCO3 19.7 L, VBG Total CO2 20.9 L, VBG O2 Saturation 97.9 H, VBG Base Excess -6.1 L, VBG Lactic Acid 2.1 H 09/21/24 07:52: Total Creatine Kinase 93, Urine Color Yellow, Urine Appearance Clear, Urine pH 6.0, Ur Specific [place] 1.020, Urine Protein 1+ A, Urine Glucose (UA) 3+, Urine Ketones Negative, Urine Blood Negative, Urine Nitrate Negative, Urine Bilirubin Negative, Urine Urobilinogen 0.2, Ur Leukocyte Esterase Negative, Urine RBC None, Urine WBC Occasional, Ur Squamous Epith Cells None, Urine Bacteria None, Urine Opiates Screen Positive H, Urine Methadone Screen Negative, Ur Barbituates Screen Negative, Ur Phencyclidine Scrn Negative, Ur Amphetamines Screen Negative, U Benzodiazepines Scrn Negative, Urine Cocaine Screen Negative, U Marijuana (THC) Screen Negative 09/21/24 08:33: ABG pH 7.32 L, ABG pCO2 43.0, ABG pO2 110.4 H, ABG HCO3 21.9 L, ABG Total CO2 23.2, ABG O2 Saturation 98, ABG Base Excess -4.2 L, ABG Lactate 1.2 09/21/24 11:06: POC Glucose 172 H 09/21/24 : WBC 19.8 H, RBC 5.14, Hgb 15.3, Hct 43.9, MCV 85.4, MCH 29.8, MCHC 34.9, RDW 12.4, Plt Count 222, MPV 10.4, Neut % (Auto) 77.1, Lymph % (Auto) 11.5, Alfalfa % (Auto) 8.7, Eos % (Auto) 1.9, Baso % (Auto) 0.4, Neut # (Auto) 15.3 H, Lymph # (Auto) 2.3, [place]alfa # (Auto) 1.7 H, Eos # (Auto) 0.4, Baso # (Auto) 0.1, Total Counted 100, Neutrophils % (Manual) 76, Lymphocytes % (Manual) 13, Monocytes % (Manual) 10 H, Metamyelocytes % 1.0, Platelet Estimate Normal, RBC Morphology Normal, Sodium 143, Potassium 3.3 L, Chloride 103, Carbon Dioxide 26, Anion Gap 17.3 H, BUN 15, Creatinine 0.90, Estimated GFR 89, Est GFR ( Amer) 108, Glucose 111 H, Calcium 9.6, Total Bilirubin 0.6, AST 27, ALT 12, Alkaline Phosphatase 47, Troponin I < 0.01, Total Protein 7.3, Albumin 4.2, Globulin 3.1, Albumin/Globulin Ratio 1.4, Salicylates < 1.0 L, Acetaminophen < 10 L, Plasma/Serum Alcohol < 10 I & O for Labs for Last 24 Hours: Intake & Output 09/19/24 09/20/24 09/21/24 09/22/24 23:59 23:59 23:59 23:59 Intake Total 3581.265 / 3581.265 1925.642 / 1925.642 Output Total 3665 / 3915 2140 / 2140 Balance -83.735 / -333.735 -214.358 / -214.358 Weight 216 lb 12.8 oz 213 lb 1.6 oz Intake & Output 09/18/24 09/19/24 09/20/24 09/21/24 23:59 23:59 23:59 23:59 Intake Total 1000 / 1000 Output Total 1500 / 1500 Balance -500 / -500 Weight 225 lb Microbiology Reports for the Last 24 Hours: Microbiology 09/21/24 08:10 Sputum - Endotracheal Tube Aspirate Gram Stain - Final 09/21/24 08:10 Sputum - Endotracheal Tube Aspirate Sputum Culture - Preliminary Microbiology 09/21/24 08:10 Sputum - Endotracheal Tube Aspirate Gram Stain - Final Constitutional: Present severe distress Comment:: Intubated and Sedated Head: Present normocephalic and atraumatic Neck: Present normal inspection and trachea midline Respiratory: Present patient mechanically ventilated; Absent prolonged expiratory phase, rhonchi or wheezes Cardiac: Present S1/S2 and Bradycardia GI: Present soft; Absent distention or tenderness Skin: Present intact; Absent cyanosis Neuro: Absent alert, awake or oriented x 3 Comment:: Intubated and sedated Extremities: Present normal inspection; Absent clubbing or cyanosis Psychiatric: Present unable to assess Assessment and Plan *Assessment and plan (1) Drug overdose: Status: Acute Category: Medical Code(s): T50.901A - Poisoning by unspecified drugs, medicaments and biological substances, accidental (unintentional), initial encounter (2) On mechanically assisted ventilation: Status: Acute Category: Medical Code(s): Z99.11 - Dependence on respirator [ventilator] status (3) Suicide attempt: Status: Acute Category: Medical Code(s): T14.91XA - Suicide attempt, initial encounter Plan Mr. Hernandez is a 49-year-old male with reported prior history of multiple suicide attempts presented today after possible intentional overdose as per the family with a GCS of 3 needing intubation mechanical ventilatory support for airway protection pulmonary was called for further evaluation and management. As per the family concern for baclofen and insulin overdose. Initially noted to have hypoglycemia received D50 and since then receiving D5 to 50 cc, has been hyperglycemic so far Home medications include Keppra, lorazepam, insulin trazodone, baclofen, pregabalin, oxycodone and losartan. CT head upon admission no acute intracranial abnormalities. Chest x-ray no acute airspace disease. Neutrophilic predominant leukocytosis. Hypokalemia 3.3. BUN/creatinine within normal limits. Blood gas upon admission 1.32 with a pCO2 of 43.0 and a PO2 of 110.4 Patient on examination not responding to verbal or painful stimuli. No gag or cough reflex. Pinpoint pupils. No rigidity noted. Muscular tone flaccid. Spontaneous respirations noted. Minimal ventilator settings. No acute respiratory vents overnight. Continue to receive antibiotics. Impr oving leukocytosis. Minimal ventilator settings. Blood glucose in hyperglycemic range. Stat 1 hour EEG no evidence of seizure activity. Continue to receive Keppra at 1500 mg twice daily at this moment. Gag reflex and cough reflex present. Improving mentation. Opening eyes. However not responding appropriately. Plan: Continue on Eliquis sedation currently on fentanyl with as needed doses. Will monitor and determine the need for propofol Continue mechanical ventilatory support. Currently on pressure control 15/5 and a rate of 24 and FiO2 of 30%. Follow-up with end-tidal. Continue Keppra 1.5 g twice daily Repeat potassium today 3.5. Hypomagnesemia noted. Continue ceftriaxone and azithromycin. Follow-up blood and sputum culture results. DuoNebs every 6 scheduled Repeat chest x-ray today stable with no new infiltrates. ET tube in function. Initial EKG no acute abnormalities. hemodynamically stable. Will monitor. Abdomen soft nondistended. Monitor urine output. - Continue mechanical ventilatory support - Continue AnalgoSedation - VAP bundle Recommend elevate head of the bed at 30 to 45 degrees Recommend oral care with chlorhexidne Recommend GI ulcer prophylaxis - Famotidine 20mg IV BID Recommend chemical DVT prophylaxis Total critical care time spent on this patient is 35 minutes managing acute hypoxic respiratory failure needing mechanical ventilation. This time spent include reviewing test results including interpreting chest x-rays, labs and arterial blood gas, optimizing the ventilator settings,formulating plan of care, discussing the plan of care with the team and the nursing staff.
--- NOTE | 2024-09-22 09:55 | XR_ITS ---
FINAL REPORT CLINICAL HISTORY: MV; ET tube COMPARISON: 09/21/2024 FINDINGS: ET tube is unchanged in position. NG tube is present and lies off the inferior margin of the film. The heart size is normal. There is a loop recording device in the left hemithorax. The lungs are underinflated. There is no focal infiltrate or edema. There are no pleural effusions. There is no pneumothorax. There is no osseous abnormality. IMPRESSION: No acute cardiopulmonary process. Support devices in stable position. Reviewed, Interpreted and Dictated by Korey Robles MD Transcribed by Maliha Gonsalves Authenticated and [facility]
[2024-09-22] MEDS: MAGNESIUM SULFATE IN WATER 2 GM/50 ML PIGGYBACK IV ×2 (10:10→10:50)
--- NOTE | 2024-09-22 12:05 | PC.NURSE ---
pt placed in soft restraints due to thrashing and high risk of pulling out ET tube and iv lines. hospice case manager and MD are aware.
[2024-09-22] MEDS: AZITHROMYCIN 500 MG in 0.9 % SODIUM CHLORIDE 250 ML 250 MG IV (13:08)
--- NOTE | 2024-09-22 17:28 | PC.WOUNDNOTE ---
sacrum picture, no open wounds
--- NOTE | 2024-09-22 18:36 | PC.NURSE ---
request of records faxed over to [facility] per Dr. Echols's request.
[2024-09-22 19:06] LABS: POC Glucose,Bedside 167 (70-110)
[2024-09-22] MEDS: ATORVASTATIN 20MG TABLET 20 MG PO (20:20)
--- NOTE | 2024-09-22 20:27 | PC.NURSE ---
Escobar (RN) has called [facility] back after recieving no fax . When records were requested again, [facility] asked to resend medical record release. Now awaiting response. 20:30.
--- NOTE | 2024-09-22 20:50 | PC.NURSE ---
[facility] Waiting for response 20:50
--- NOTE | 2024-09-22 21:48 | PC.NURSE ---
Belen (LUKE) and Escobar (RN) figueroa [facility] and spoke with coordinator, confirming that they recieved our fax. Waiting on fax of medical records to come through 21:49.
--- NOTE | 2024-09-22 21:57 | PC.NURSE ---
Fax of medical records have been recieved. 21:57
--- NOTE | 2024-09-22 22:21 | P.PN_ITS ---
Subjective *Date: 09/22/24 *Time: 22:21 Interval history: Patient more alert today, moving extremities and opening and closing eyes. But no purposeful movement or following commands. Exam Data for Last 24 hours Vital signs and Labs for Last 24 Hours: Temp Pulse Resp BP Pulse Ox O2 Del Method O2 Flow Rate 98.8 F 71 16 154/78 H 98 Mechanical Ventilation 30 09/22/24 22:00 09/22/24 22:00 09/22/24 22:00 09/22/24 22:00 09/22/24 22:00 09/22/24 20:48 09/22/24 15:00 FiO2 30 09/22/24 20:10 Laboratory Results - last 24 hr 09/21/24 12:07: POC Glucose 167 H 09/21/24 14:55: POC Glucose 164 H 09/21/24 15:53: POC Glucose 180 H 09/21/24 16:56: POC Glucose 188 H 09/21/24 18:01: POC Glucose 169 H 09/21/24 19:00: POC Glucose 158 H 09/21/24 20:08: POC Glucose 131 H 09/21/24 21:07: POC Glucose 125 H 09/21/24 21:52: POC Glucose 124 H 09/21/24 22:53: POC Glucose 138 H 09/22/24 00:24: POC Glucose 167 H 09/22/24 00:57: POC Glucose 144 H 09/22/24 01:05: ABG pH 7.44, ABG pCO2 33.8 L, ABG pO2 161.4 H, ABG HCO3 22.3, ABG Total CO2 23.4, ABG O2 Saturation 99, ABG Base Excess -1.8 09/22/24 01:08: Triglycerides 199 H, Cholesterol 82 L, LDL Cholesterol Direct < 30.00 L, VLDL Cholesterol 40, HDL Cholesterol 32 L, Cholesterol/HDL Ratio 2.6 09/22/24 02:14: POC Glucose 147 H 09/22/24 03:02: POC Glucose 191 H 09/22/24 04:09: POC Glucose 185 H 09/22/24 04:51: WBC 15.7 H, RBC 4.75, Hgb 13.8 L, Hct 41.0 L, MCV 86.3, MCH 29.1, MCHC 33.7, RDW 12.6, Plt Count 196, MPV 10.9 H, Neut % (Auto) 75.0, Lymph % (Auto) 13.9, [place] % (Auto) 9.6 H, Eos % (Auto) 0.6, Baso % (Auto) 0.4, Neut # (Auto) 11.7 H, Lymph # (Auto) 2.2, [place] # (Auto) 1.5 H, Eos # (Auto) 0.1, Baso # (Auto) 0.1, Sodium 144, Potassium 3.5, Chloride 109 H, Carbon Dioxide 24, Anion Gap 14.5, BUN 8 L D, Creatinine 0.80, Estimated Creat Clear 149, Estimated GFR 102, Est GFR ( Amer) 123, Glucose 152 H D, Calcium 8.8, Magnesium 1.5 L, Total Bilirubin 0.6, AST 19 D, ALT 11 L, Alkaline Phosphatase 50, Total Protein 6.0 L, Albumin 3.4 L D, Globulin 2.6, Albumin/Globulin Ratio 1.3 09/22/24 05:01: ABG pH 7.43, ABG pCO2 37.0, ABG pO2 130.5 H, ABG HCO3 23.7, ABG Total CO2 24.9, ABG O2 Saturation 98, ABG Base Excess -0.7 I & O for Last 24 hours: Intake & Output 09/19/24 09/20/24 09/21/24 09/22/24 23:59 23:59 23:59 23:59 Intake Total 3581.265 / 3581.265 4485.215 / 4485.215 Output Total 3665 / 3915 4607 / 4607 Balance -83.735 / -333.735 -121.785 / -121.785 Weight 98.339 kg 96.661 kg Microbiology Reports for the Last 24 Hours: Microbiology 09/21/24 13:50 Blood Blood Culture - Preliminary NO GROWTH AFTER 24 HOURS 09/21/24 13:40 Blood Blood Culture - Preliminary NO GROWTH AFTER 24 HOURS 09/21/24 08:10 Sputum - Endotracheal Tube Aspirate Gram Stain - Final 09/21/24 08:10 Sputum - Endotracheal Tube Aspirate Sputum Culture - Preliminary Constitutional Constitutional: no acute distress Comments: Intubated and sedated. *Routine Respiratory Exam Respiratory: Present CTA bilaterally *Routine Cardiovascular Exam Cardiovascular: Present RRR Assessment and Plan *Assessment and plan (1) On mechanically assisted ventilation: Status: Acute Category: Medical Code(s): Z99.11 - Dependence on respirator [ventilator] status (2) Drug overdose: Status: Acute Category: Medical Code(s): T50.901A - Poisoning by unspecified drugs, medicaments and biological substances, accidental (unintentional), initial encounter (3) Baclofen overdose: Status: Acute Category: Medical Code(s): T42.8X1A - Poisoning by antiparkinsonism drugs and other central muscle-tone depressants, accidental (unintentional), initial encounter (4) Suicide attempt: Status: Acute Category: Medical Code(s): T14.91XA - Suicide attempt, initial encounter (5) Intentional overdose of insulin: Status: Acute Category: Medical Code(s): T38.3X2A - Poisoning by insulin and oral hypoglycemic [antidiabetic] drugs, intentional self-harm, initial encounter (6) Diabetes: Status: Acute Qualifiers: Diabetes mellitus type: type 2 Diabetes mellitus penitentiary insulin use: with termite exterminator use Diabetes mellitus complication status: with circulatory complication Diabetes mellitus complication detail: with other circulatory complications Qualified Code(s): E11.59 - Type 2 diabetes mellitus with other circulatory complications; Z79.4 - nursing home (current) use of insulin Category: Medical Code(s): E11.9 - Type 2 diabetes mellitus without complications (7) Coronary artery disease: Status: Acute Qualifiers: Coronary Disease-Associated Artery/Lesion type: [place] artery [place] vs. transplanted heart: [place] heart Associated angina: with other forms of angina Qualified Code(s): I25.118 - Atherosclerotic heart disease of [place] coronary artery with other forms of angina pectoris Category: Medical Code(s): I25.10 - Atherosclerotic heart disease of [place] coronary artery without angina pectoris Plan Kingsley Hernandez is a 49-year-old male with a medical history of multiple drug intentional overdoses/suicide attempts (last being 2 weeks ago, transferred to [facility]), major depression, insulin-dependent diabetes, seizure disorder, low back pain requiring multiple surgeries on chronic opiate therapy and work disability, obstructive sleep apnea, CVA, CAD with stent, GERD, hypertension who presents to the ED after being found unconscious around 6 AM by mother at home. Per mother at bedside, patient had gone to bed at 8 PM last night in apparently normal mood. She found him to be unconscious with nearly empty Humalog, glargine bottles and empty bottle of baclofen beside him in bed. Patient has had multiple episodes in the past overdosing on intentionally insulin. Upon further inquiry, patient's daughter encouraged patient to seek help before she visited him last night. Mother suspects this might have been a trigger. Patient was recently admitted at [facility] on 09/08/2024 where he stayed 3 to 4 days and discharged without medication changes. Mother states this is the third time in the last 2 years patient has attempted intentional suicide, and has had numerous episodes prior to then as well. Patient has been struggling with loneliness/isolation, lives with his mother, struggling with low back pain s/p multiple back surgeries requiring chronic opioid and baclofen therapy. Does not currently follow with a therapist, and upon review of home medications does not take any psychiatric medications. On arrival, patient had a GCS of 3 and was rapidly sedated intubated. Has not required sedation due to global encephalopathy from baclofen overdose. Poison control was contacted and recommended frequent Accu-Cheks and dextrose fluids. Case discussed with ED provider and decision was to admit patient for acute toxic encephalopathy from intentional baclofen and insulin overdose. #Acute toxic encephalopathy #Multidrug intentional overdose #Suicide attempt #Mechanical ventilation ? Longstanding history of untreated major depression, multiple suicide attempts. Empty glargine, Humalog, baclofen bottles found bedside. ? Globally encephalopathic, not responsive to stimuli including pain. No signs of respiratory depression at this time, but was intubated due to GCS of 3. Reassuring ABG. ? Pulmonology critical care consulted, ordered EEG which showed global slowing consistent with baclofen overdose. ? Baclofen was recently filled 8 days ago, 120 pills of 10 mg. Clearance of this can take days. Will closely monitor. ? Continue D5/LR at 125 mL/h. Glucose currently 185, increase rate and use D50 as needed if patient becomes hypoglycemic. ? Patient is more alert today, moving extremities and opening eyes. However no purposeful movement and not following commands. ? Continue fentanyl, propofol with minimal sedation. Would recommend daily SBT's. ? Famotidine 20 mg twice daily for GI prophylaxis. ? Continue Levine catheter. Monitor urine output. ? Lovenox 40 mg for DVT prophylaxis. #Major depression ? Untreated. Behavioral health consulted, plan to evaluate patient upon improvement of mentation. #Insulin-dependent diabetes ? Overdose as above. Hold insulin for now. Continue D5 as above. #Seizure disorder ? Continue IV Keppra 1500 mg twice daily. IV Ativan 2 mg as needed for breakthrough seizures. #CAD with stent #History of CVA ? Continue Plavix, statin through G-tube. #Chronic low back pain ? Takes oxycodone at home. Mother keeps this locked away. UDS positive for oxycodone, but low suspicion for this overdose as this is not accessible to patient. ? Patient does have mildly constricted pupils, will consider Narcan if there are signs of respiratory depression. ? Closely monitor for opioid withdrawal. #GERD ? Continue famotidine as above. #Hypertension ? Soft pressures at this time. Hold antihypertensives. Full code DVT prophylaxis: Lovenox 40 mg
[2024-09-23] VITALS (62 sets, daily range): BP systolic 93–170; BP diastolic 51–100; PULSE 58–98; RESP 9–29; TEMP 36.6–38.1; O2SAT 92–99; BMI 33.5
[2024-09-23] MEDS: IPRATROPIUM/ALBUTEROL 3 ML NEB IH ×4 (00:22→18:51)
--- NOTE | 2024-09-23 01:28 | PC.NURSE ---
Patient alert to name when spoken to he will track me, and look at me on either side of the bed, he still will not squeeze my hand, nod or shake his head or wiggle his toes or follow any other commands but is thrashing in the bed, kicking and moving legs and moving his head around and away when you do oral care. RN is making adjustments to infusions for pain and sedation to ensure patient is comfortable at this time.
[2024-09-23] MEDS: DEXTROSE 5%-LACTATED RINGERS 1,000 ML 125 ML IV (02:26)
[2024-09-23] MEDS: FENTANYL CITRATE/PF 1,000 MCG in 0.9 % SODIUM CHLORIDE 80 ML 10 MCG IV (03:59)
--- NOTE | 2024-09-23 05:30 | PC.NURSE ---
Patient sedation at therapeutic level, he is well appearing, temp has come down on its own since patient is resting more comfortably and not thrashing in the bed. He was provided a full bed change and was given a bed bath, foam dressing on the sacrum is still intact and clean and good integrity of dressing is noted. patient restraints have been taken off and assessed the skin around them all intact, restraints back on and secure to side of bed. Lines untangled, dressed and labeled at the IV sites accordingly. Bolus feeds set to go on tube feeding pump q4hrs at 320 as ordered with 30 flush q4 as well. OGt and ET tube still at marked location same as starting of my shift. Patient is resting comfortably and vitals are stable at this time. Per protocol for restraints we have charted for his circulation and nutrition and elimination [id number] with 15 minute checks documented from the 1:1 sitter in room [place].
[2024-09-23 05:57] LABS: Hematocrit 35.8 % (42.0-52.0); Immature Granulocytes % 0.3 %; Mean Corpuscular HGB Conc 33.5 g/dL (31.8-35.4); Mean Corpuscular Hemoglobin 29.6 pg (27.0-31.2); Mean Corpuscular Volume 88.2 fl (80-94); Nucleated Red Blood Cells % 0 %; Platelet Count 175 K/mm3 (142-424); Red Blood Count 4.06 M/mm3 (4.60-6.20); Red Cell Distribution Width-SD 41.0 fL; White Blood Count 11.5 K/mm3 (4.8-10.8)
[2024-09-23 06:03] LABS: Hemoglobin 11.9 g/dL (14.1-18.0)
[2024-09-23 06:23] LABS: Alanine Aminotransferase 9 U/L (12-78); Albumin Level 3.1 g/dl (3.5-5.0); Albumin/Globulin Ratio 1.1 (1.1-1.8); Alkaline Phosphatase 49 U/L (38-126); Anion Gap 11.1 mEq/L (5-15); Aspartate Amino Transferase 20 U/L (17-59); Bilirubin,Total 0.4 mg/dl (0.2-1.3); Blood Urea Nitrogen 8 mg/dl (9-20); Calcium 8.2 mg/dl (8.4-10.2); Carbon Dioxide 25 mmol/L (22.0-30.0); Chloride 108 mmol/L (98-107); Creatinine Clearance Estimated 212 mL/min (50-200); Creatinine,Serum 0.60 mg/dl (0.66-1.25); Estimated Glomerular Filt Rate 142 ml/min (>60); GFR (African American) 172 ML/MIN (>60); Globulin 2.8 g/dL (1.3-3.2); Glucose 120 mg/dl (74-100); Magnesium 2.0 mg/dl (1.6-2.3); Potassium 3.1 mmoL/L (3.5-5.1); Sodium 141 mmol/L (136-145); Total Protein,Serum 5.9 g/dl (6.3-8.2)
[2024-09-23] MEDS: CLOPIDOGREL 75MG TAB 75 MG PO (08:13)
[2024-09-23] MEDS: SODIUM CHLORIDE 0.9% 10ML VIAL 8 ML IV (08:13)
[2024-09-23] MEDS: FAMOTIDINE 20MG/2ML VIAL 20 MG IV ×2 (08:13→20:18)
[2024-09-23] MEDS: POTASSIUM CHLORIDE 20MEQ TAB 40 MEQ PO ×2 (08:13→11:34)
[2024-09-23] MEDS: levETIRAcetam 1,500 MG in 0.9 % SODIUM CHLORIDE 100 ML 220 MG IV ×2 (08:57→20:18)
--- NOTE | 2024-09-23 09:29 | P.PN_ITS ---
Subjective *Date: 09/23/24 *Time: 12:10 Interval history: No acute respiratory events overnight Pulmonology Exam Inpatient Vital signs and Labs for Last 24 Hours: Temp Pulse Resp BP Pulse Ox O2 Del Method O2 Flow Rate 98.6 F 73 20 129/68 96 Mechanical Ventilation 30 09/23/24 09:20 09/23/24 09:20 09/23/24 09:20 09/23/24 09:20 09/23/24 09:20 09/23/24 09:20 09/22/24 15:00 FiO2 09/23/24 09:20 Laboratory Results - last 24 hr 09/21/24 12:07: POC Glucose 167 H 09/23/24 04:43: WBC 11.5 H D, RBC 4.06 L, Hgb 11.9 L D, Hct 35.8 L, MCV 88.2, MCH 29.6, MCHC 33.5, RDW 12.8, Plt Count 175, MPV 10.8 H, Neut % (Auto) 66.5, Lymph % (Auto) 21.5, [place] % (Auto) 8.8, Eos % (Auto) 2.4, Baso % (Auto) 0.5, Neut # (Auto) 7.6, Lymph # (Auto) 2.5, [place] # (Auto) 1.0, Eos # (Auto) 0.3, Baso # (Auto) 0.1, Sodium 141, Potassium 3.1 L, Chloride 108 H, Carbon Dioxide 25, Anion Gap 11.1, BUN 8 L, Creatinine 0.60 L D, Estimated Creat Clear 212, Estimated GFR 142, Est GFR ( Amer) 172 D, Glucose 120 H D, Calcium 8.2 L , Magnesium 2.0 D, Total Bilirubin 0.4, AST 20, ALT 9 L, Alkaline Phosphatase 49, Total Protein 5.9 L, Albumin 3.1 L, Globulin 2.8, Albumin/Globulin Ratio 1.1 Temp Pulse Resp BP Pulse Ox O2 Del Method FiO2 98.8 F 62 18 106/54 L 100 Mechanical Ventilation 50 09/21/24 10:27 09/21/24 10:27 09/21/24 10:27 09/21/24 10:27 09/21/24 10:15 09/21/24 10:27 09/21/24 08:17 Laboratory Results - last 24 hr 09/21/24 07:40: VBG pH 7.34, VBG pCO2 37.7, VBG pO2 125.8 H, VBG HCO3 19.7 L, VBG Total CO2 20.9 L, VBG O2 Saturation 97.9 H, VBG Base Excess -6.1 L, VBG Lactic Acid 2.1 H 09/21/24 07:52: Total Creatine Kinase 93, Urine Color Yellow, Urine Appearance Clear, Urine pH 6.0, Ur Specific [place] 1.020, Urine Protein 1+ A, Urine Glucose (UA) 3+, Urine Ketones Negative, Urine Blood Negative, Urine Nitrate Negative, Urine Bilirubin Negative, Urine Urobilinogen 0.2, Ur Leukocyte Esterase Negative, Urine RBC None, Urine WBC Occasional, Ur Squamous Epith Cells None, Urine Bacteria None, Urine Opiates Screen Positive H, Urine Methadone Screen Negative, Ur Barbituates Screen Negative, Ur Phencyclidine Scrn Negative, Ur Amphetamines Screen Negative, U Benzodiazepines Scrn Negative, Urine Cocaine Screen Negative, U Marijuana (THC) Screen Negative 09/21/24 08:33: ABG pH 7.32 L, ABG pCO2 43.0, ABG pO2 110.4 H, ABG HCO3 21.9 L, ABG Total CO2 23.2, ABG O2 Saturation 98, ABG Base Excess -4.2 L, ABG Lactate 1.2 09/21/24 11:06: POC Glucose 172 H 09/21/24 : WBC 19.8 H, RBC 5.14, Hgb 15.3, Hct 43.9, MCV 85.4, MCH 29.8, MCHC 34.9, RDW 12.4, Plt Count 222, MPV 10.4, Neut % (Auto) 77.1, Lymph % (Auto) 11.5, [place] % (Auto) 8.7, Eos % (Auto) 1.9, Baso % (Auto) 0.4, Neut # (Auto) 15.3 H, Lymph # (Auto) 2.3, [place] # (Auto) 1.7 H, Eos # (Auto) 0.4, Baso # (Auto) 0.1, Total Counted 100, Neutrophils % (Manual) 76, Lymphocytes % (Manual) 13, Monocytes % (Manual) 10 H, Metamyelocytes % 1.0, Platelet Estimate Normal, RBC Morphology Normal, Sodium 143, Potassium 3.3 L, Chloride 103, Carbon Dioxide 26, Anion Gap 17.3 H, BUN 15, Creatinine 0.90, Estimated GFR 89, Est GFR ( Amer) 108, Glucose 111 H, Calcium 9.6, Total Bilirubin 0.6, AST 27, ALT 12, Alkaline Phosphatase 47, Troponin I < 0.01, Total Protein 7.3, Albumin 4.2, Globulin 3.1, Albumin/Globulin Ratio 1.4, Salicylates < 1.0 L, Acetaminophen < 10 L, Plasma/Serum Alcohol < 10 I & O for Labs for Last 24 Hours: Intake & Output 09/20/24 09/21/24 09/22/24 09/23/24 23:59 23:59 23:59 23:59 Intake Total 3581.265 / 3581.265 4485.215 / 4485.215 2501.739 / 2501.739 Output Total 3665 / 3915 4622 / 4637 1045 / 1045 Balance -83.735 / -333.735 -136.785 / -580.975 2726.739 / 1456.739 Weight 216 lb 12.8 oz 213 lb 1.6 oz 226 lb 6.4 oz Intake & Output 09/18/24 09/19/24 09/20/24 09/21/24 23:59 23:59 23:59 23:59 Intake Total 1000 / 1000 Output Total 1500 / 1500 Balance -500 / -500 Weight 225 lb Microbiology Reports for the Last 24 Hours: Microbiology 09/21/24 13:50 Blood Blood Culture - Preliminary NO GROWTH AFTER 24 HOURS 09/21/24 13:40 Blood Blood Culture - Preliminary NO GROWTH AFTER 24 HOURS 09/21/24 08:10 Sputum - Endotracheal Tube Aspirate Gram Stain - Final 09/21/24 08:10 Sputum - Endotracheal Tube Aspirate Sputum Culture - Preliminary Microbiology 09/21/24 08:10 Sputum - Endotracheal Tube Aspirate Gram Stain - Final Constitutional: Present moderate distress Comment:: Intubated and Sedated Head: Present normocephalic and atraumatic Neck: Present normal inspection and trachea midline Respiratory: Present patient mechanically ventilated; Absent prolonged expiratory phase, rhonchi or wheezes Cardiac: Present S1/S2 and Bradycardia GI: Present soft; Absent distention or tenderness Skin: Present intact; Absent cyanosis Neuro: Present awake; Absent alert or oriented x 3 Comment:: Intubated and sedated Extremities: Present normal inspection; Absent clubbing or cyanosis Psychiatric: Present unable to assess Assessment and Plan *Assessment and plan (1) Drug overdose: Status: Acute Category: Medical Code(s): T50.901A - Poisoning by unspecified drugs, medicaments and biological substances, accidental (unintentional), initial encounter (2) On mechanically assisted ventilation: Status: Acute Category: Medical Code(s): Z99.11 - Dependence on respirator [ventilator] status (3) Suicide attempt: Status: Acute Category: Medical Code(s): T14.91XA - Suicide attempt, initial encounter Plan Mr. Hernandez is a 49-year-old male with reported prior history of multiple suicide attempts presented today after possible intentional overdose as per the family with a GCS of 3 needing intubation mechanical ventilatory support for airway protection pulmonary was called for further evaluation and management. As per the family concern for baclofen and insulin overdose. Initially noted to have hypoglycemia received D50 and since then receiving D5 to 50 cc, has been hyperglycemic so far Home medications include Keppra, lorazepam, insulin trazodone, baclofen, pregabalin, oxycodone and losartan. CT head upon admission no acute intracranial abnormalities. Chest x-ray no acute airspace disease. Neutrophilic predominant leukocytosis. Hypokalemia 3.3. BUN/creatinine within normal limits. Blood gas upon admission 1.32 with a pCO2 of 43.0 and a PO2 of 110.4 Patient on examination not responding to verbal or painful stimuli. No gag or cough reflex. Pinpoint pupils. No rigidity noted. Muscular tone flaccid. Spontaneous respirations noted. Minimal ventilator settings. Stat 1 hour EEG no evidence of seizure activity. Continue to receive Keppra at 1500 mg twice daily at this moment. Interval update: No acute respiratory events overnight. Significant improvement in mentation. Opening eyes and following commands. Mostly purposeful. Performing SBT appropriately. Will extubate to nasal cannula. Plan: Continue SBT to facilitate extubation Continue mechanical ventilatory support. Currently on pressure control 15/5 and a rate of 24 and FiO2 of 30%. Follow-up with end-tidal. Continue Keppra 1.5 g twice daily Continue ceftriaxone and azithromycin. Blood and sputum cultures no growth so far DuoNebs every 6 scheduled Initial EKG no acute abnormalities. hemodynamically stable. Will monitor. Abdomen soft nondistended. Continue tube Monitor urine output. - Continue mechanical ventilatory support - Continue AnalgoSedation - VAP bundle Recommend elevate head of the bed at 30 to 45 degrees Recommend oral care with chlorhexidne Recommend GI ulcer prophylaxis - Famotidine 20mg IV BID Recommend chemical DVT prophylaxis Total critical care time spent on this patient is 35 minutes managing acute hypoxic respiratory failure needing mechanical ventilation. This time spent i nclude reviewing test results including interpreting chest x-rays, labs and arterial blood gas, optimizing the ventilator settings,formulating plan of care, discussing the plan of care with the team and the nursing staff.
--- NOTE | 2024-09-23 10:18 | PC.NURSE ---
Pt is currently on a spontaneous breathing trial, pt is currently more alert and attempting to answer simple questions with nods of his head and eye blinks. He appears upset but is semi-receptive to care by staff and redirection.
--- NOTE | 2024-09-23 10:22 | DIET.NUTRFU ---
Tubefeeding was started, propofol provided on 09/22: 296.77ml, today 367.42ml. SBT this morning. He was alert today when saw him, able to follow direction. Nutritional needs are: 1900-2100kcal/day, 80-90gm protein/day, 2200-2400ml/day. Anticipate extubation, then K 9 HANDLER/ DEPUTY will eval for appropriate diet. Recommend diabetic diet
[2024-09-23 11:36] LABS: POC Glucose,Bedside 86 (70-110)
[2024-09-23 11:36] LABS: POC Glucose,Bedside 93 (70-110)
[2024-09-23 11:36] LABS: POC Glucose,Bedside 154 (70-110)
[2024-09-23 11:36] LABS: POC Glucose,Bedside 96 (70-110)
[2024-09-23 11:36] LABS: POC Glucose,Bedside 128 (70-110)
[2024-09-23 11:36] LABS: POC Glucose,Bedside 92 (70-110)
[2024-09-23 11:36] LABS: POC Glucose,Bedside 122 (70-110)
[2024-09-23 11:36] LABS: POC Glucose,Bedside 119 (70-110)
[2024-09-23 11:36] LABS: POC Glucose,Bedside 109 (70-110)
[2024-09-23 11:36] LABS: POC Glucose,Bedside 203 (70-110)
[2024-09-23 11:36] LABS: POC Glucose,Bedside 129 (70-110)
[2024-09-23 11:36] LABS: POC Glucose,Bedside 117 (70-110)
[2024-09-23 11:36] LABS: POC Glucose,Bedside 114 (70-110)
[2024-09-23 11:36] LABS: POC Glucose,Bedside 122 (70-110)
[2024-09-23 11:36] LABS: POC Glucose,Bedside 126 (70-110)
[2024-09-23 11:36] LABS: POC Glucose,Bedside 106 (70-110)
[2024-09-23 11:36] LABS: POC Glucose,Bedside 97 (70-110)
[2024-09-23 11:36] LABS: POC Glucose,Bedside 105 (70-110)
[2024-09-23 11:36] LABS: POC Glucose,Bedside 168 (70-110)
[2024-09-23 11:36] LABS: POC Glucose,Bedside 100 (70-110)
[2024-09-23 11:36] LABS: POC Glucose,Bedside 116 (70-110)
[2024-09-23 11:36] LABS: POC Glucose,Bedside 229 (70-110)
[2024-09-23 11:36] LABS: POC Glucose,Bedside 104 (70-110)
[2024-09-23 11:36] LABS: POC Glucose,Bedside 113 (70-110)
[2024-09-23 11:36] LABS: POC Glucose,Bedside 187 (70-110)
[2024-09-23 11:36] LABS: POC Glucose,Bedside 113 (70-110)
[2024-09-23 11:36] LABS: POC Glucose,Bedside 96 (70-110)
[2024-09-23 11:36] LABS: POC Glucose,Bedside 96 (70-110)
[2024-09-23 11:36] LABS: POC Glucose,Bedside 204 (70-110)
[2024-09-23 11:36] LABS: POC Glucose,Bedside 147 (70-110)
[2024-09-23 11:36] LABS: POC Glucose,Bedside 116 (70-110)
[2024-09-23 12:23] LABS: POC Glucose,Bedside 139 (70-110)
[2024-09-23] MEDS: AZITHROMYCIN 500 MG in 0.9 % SODIUM CHLORIDE 250 ML 250 MG IV (13:21)
--- NOTE | 2024-09-23 13:25 | PC.NURSE ---
pt was extubated at approx. 1245. Pt tolerated well. He is currently alert and oriented and out of restraints.
[2024-09-23 14:01] LABS: POC Glucose,Bedside 138 (70-110)
--- NOTE | 2024-09-23 16:05 | CARE MANAGER ---
Addendum entered by Deann Moseley RN 09/24/24 16:29: CM contacted psychiatric and behavior health facility, but no beds were available. Patient information was then faxed to [facility] in [place]. Patient has been accepted and dad is going to transport. Number to call report has been given to ICU nursing staff and patient notified. Original Note: LATANYA is working with Dr. Echols, behavioral [facility], Peer Support to facilitate safe discharge plan. At this time patient has verbalized to set staff fitter and MD, that he would like to go to inpatient rehab. 72 hour hold paperwork has been filled out and will be located in house cleaner's office just in case patient has a decline. We are awaiting recommendations from behavioral health.
[2024-09-23] MEDS: ACETAMINOPHEN 325MG TAB 650 MG PO ×2 (17:20→21:18)
[2024-09-23] MEDS: NICOTINE 21MG/24HR PATCH 21 MG TD (17:49)
[2024-09-23] MEDS: OXYCODONE 5MG IMMEDIATE RELEASE TABLET 10 MG PO (18:52)
--- NOTE | 2024-09-23 19:49 | EXP.BH.CONS ---
History of Present Illness *Admission Date: 09/21/24 *History of present illness: Kingsley Hernandez is a 49-year-old male with a medical history of multiple drug intentional overdoses/suicide attempts (last being 2 weeks ago, transferred to [facility]), major depression, insulin-dependent diabetes, seizure disorder, low back pain requiring multiple surgeries on chronic opiate therapy and work disability, obstructive sleep apnea, CVA, CAD with stent, GERD, and hypertension. Patient states that he has had multiple suicide attempts and psychiatric hospitalizations in the past. Patient reports that in the past he has been admitted to [facility], [facility], [facility], formerly [facility], and [facility]. The psychiatric admissions have been for suicidal ideation, suicide attempt, and alcohol and drug abuse. Patient states that he had been living in [place] with his prior to having several CVAs. Patient states that he was in assisted living and in a penitentiary when his was no longer able to care for him. Patient states that after his CVAs when he was living with his and that started having suicidal ideation because he could not complete the tasks that he has been able to in the past and was unable to care for himself like he had been able to. Patient states that he was admitted to [facility] in [place] several times after his CVA for suicidal ideation and suicide attempt. Patient reports that his plamn for suicide has always been overdose. Patient states that approximately 2 years ago his mom moved him down here to [place] and within the last 2 years he has had 3 or 4 suicide attempts by trying to overdose on insulin. Patient states that he was also hospitalized at [facility] and [facility] for alcohol and drug abuse. Mom states that when he was hospitalized for alcohol and drug abuse she had previously taken over caring for patient's medicine because she thought him abusing his Lyrica, oxycodone and Ativan. Mom states that she had his a medicine door and patient had failed it she has been lost to medicine and the loss thoughts and patient had found the carter. Mom now wears a carter for the lock box around her neck so that it is always with her and he does not have access to it. Patient does not have access to his Lyrica, Ativan and oxycodone unless it is a scheduled time for him to get them throughout the day. Patient states that he no longer drinks alcohol and has not had a problem with drinking for about 2 years. The patient currently reports that he has no thoughts of trying to commit suicide and states that he has done trying to . Patient states he was triggered prior to this suicide attempt by his stepfather who wants him to quit smoking and he feels like he has been nagging him to quit smoking because he has diabetes and he recently received 2 stents during a heart cath. Patient reports that he has been trying to cut back on smoking and he currently has not been 1 pack/day of cigarettes. Patient states that he feels like he is a burden to his mom and stepdad and he feels like his stepdad is tired of him being at the house. Patient states that he felt like it would be easier for his mom and stepdad if he was no longer there. Patient also states that he was triggered because his did not want their daughter to come down and visit because of his recent suicide attempt 2 weeks ago and she was afraid that patient would attempt suicide again father daughter was fair. Patient's was trying to take their daughter from seeing her dad like this. Patient states that he now understands her reasoning but was very upset at the time. Patient reports that he would like to go back to [facility] to be in a penitentiary or assisted living so that he can be near his and daughter again. Patient is hopeful that he can find placement in an assisted living facility when he is finished with his inpatient psychiatric care so that he can be near his and daughter. Patient states that he has been on mental health medication in the past feeling that he remembers is bupropion and he was taken off of that after his CVAs because he started having seizures. Mental Status Exam: MOOD: Patient is calm, cooperative, and engaged in the hospital today. ANXIETY: There are no apparent signs of anxiety. APPEARANCE: Patient is normal in appearance with age appropriate dress and grooming and appears to be stated age. APPETITE: No issues with appetite. No significant weight loss or weight gain. ENERGY: Energy is normal. CONCENTRATION: WNL IRRITABILITY: denies AFFECT: Full-range. THOUGHT CONTENT AND PROCESS: Hallucinations and delusions are denied and behavior is generally appropriate. Associations are intact, thinking is basically logical and thought content is appropriate. There are no signs of cognitive difficulty, based on vocabulary and fund of knowledge. SPEECH: Speech is normal in rate, volume, and articulation and language skills are intact. PSYCHOMOTOR: There is no apparent psychomotor retardation noted at this time. ORIENTATION: Memory is intact for recent and remote events and the patient is oriented to time, place, and person. SUICIDAL IDEATIONS: Patient was admitted for suicide attempt, patient denies current suicidal ideations or plans and patient also denies homicidal ideation. HOMICIDAL IDEATIONS: Homicidal or assaultive ideas or intentions are also denied. INSIGHT: Insight appears to be intact. JUDGMENT: Judgment is intact. [facility] Disclaimer: The information contained in this section may have been updated after the patient was seen, as this information can be updated by other users. Medical History On mechanically assisted ventilation Drug overdose Depression Anxiety SOB (shortness of breath) Chest pain Abnormal findings on diagnostic imaging of heart and coronary circulation Abnormal nuclear cardiac imaging test History of tonsillitis Diabetes CVA (cerebral vascular accident) Skin induration Deviated septum Right maxillary sinus opacification Headache Chronic sinusitis Right sided facial pain Pain due to onychomycosis of toenail Neuropathy involving both lower extremities Bilateral foot pain Nail fungus Surgical History History of back surgery History of colon resection History of appendectomy History of laparotomy Family History Other Family history of diabetes mellitus Social History (Updated 09/23/24 @ 20:27 by Terrie Solorio APRN) Smoking Status: Current every day smoker tobacco type: cigarettes packs per day: 1 alcohol intake: never substance use type: denies use current occupational status: retired Travel in the last 8 weeks?: None caffeine: No Meds Home Medications and Allergies Home Medications ?Medication ?Instructions ?Recorded ?Confirmed ?Type levetiracetam 750 mg tablet 1,500 mg PO BID Seizures 08/15/22 09/21/24 History lorazepam 1 mg tablet 1 mg PO TID Seizures 08/15/22 09/21/24 History losartan 50 mg tablet 50 mg PO DAILY Hypertension 08/15/22 09/21/24 History pregabalin 150 mg capsule 150 mg PO TID Nerve Pain 08/15/22 09/21/24 History rosuvastatin 10 mg tablet 10 mg PO DAILY Cholesterol 08/15/22 09/21/24 History topiramate 25 mg tablet 25 mg PO HS Headache prevention 08/15/22 09/21/24 History insulin glargine 100 unit/mL 90 unit SQ BID 04/14/23 09/21/24 History subcutaneous solution (Lantus U-100 Insulin) clopidogrel 75 mg tablet (Plavix) 75 mg PO DAILY 05/06/23 09/21/24 History fenofibrate nanocrystallized 48 mg 48 mg PO HS 05/06/23 09/21/24 History tablet folic acid 400 mcg tablet 400 mg PO DAILY 05/06/23 09/21/24 History insulin aspart U-100 100 unit/mL 1 sliding scale dose SQ 05/06/23 09/21/24 History subcutaneous solution (Novolog USEASDIRECTD U-100 Insulin aspart) insulin syringe-needle U-100 1 mL #10 ea 05/06/23 09/16/24 History 31 gauge x 5/16 (BD Insulin Syringe Ultra-Fine) pantoprazole 20 mg tablet,delayed 20 mg PO DAILY PRN Heartburn 05/06/23 09/21/24 History release (Protonix) potassium chloride 10 mEq 10 meq PO DAILY 05/06/23 09/21/24 History capsule,extended release trazodone 50 mg tablet 50 mg PO HS 05/06/23 09/16/24 History baclofen 10 mg tablet 10 mg PO Q6HP PRN muscle spasms 06/17/23 09/21/24 History calcitriol 0.25 mcg capsule 0.25 mcg PO MOWEFR 03/24/24 09/21/24 History empagliflozin 25 mg tablet 25 mg PO DAILY 03/24/24 09/21/24 History (Jardiance) blood-glucose sensor (FreeStyle #1 ea 07/26/24 09/16/24 History Eugenie 3 Sensor device) flash glucose scanning reader #1 ea 07/26/24 09/16/24 History (FreeStyle Eugenie 2 [place]) metoprolol succinate 100 mg 100 mg PO DAILY 08/02/24 09/21/24 History tablet,extended release 24 hr isosorbide mononitrate 60 mg 60 mg PO DAILY #90 tabs 08/23/24 09/21/24 Rx tablet,extended release 24 hr oxycodone 10 mg tablet 10 mg PO Q4HP Moderate Pain (Scale 08/23/24 09/21/24 History Score 7/10) blood pressure monitor (Blood #1 ea 09/16/24 09/16/24 Rx Pressure Kit) ranolazine 1,000 mg 1,000 mg PO BID #60 tabs 09/16/24 09/21/24 Rx tablet,extended release,12 hr New Prescriptions to Start Prescriptions: Allergies Allergy/AdvReac Type Severity Reaction Status Date / Time aspirin Allergy Severe Anaphylaxis Verified 09/16/24 10:31 ibuprofen (From Motrin) Allergy Severe Anaphylaxis Verified 09/16/24 10:31 naproxen (From Aleve) Allergy Severe Anaphylaxis Verified 09/16/24 10:31 NSAIDS (Non-Steroidal Allergy Severe Anaphylaxis Verified 09/16/24 10:31 Anti-Inflamma bee venom protein (honey bee) Allergy Anaphylaxis Verified 09/16/24 10:31 metoclopramide (From Reglan) AdvReac Intermediate Agitated Verified 09/16/24 10:31 midazolam (From Versed) AdvReac Verified 09/16/24 10:31 Assessment and Plan *Assessment and plan (1) Suicide attempt: Status: Acute Category: Medical Code(s): T14.91XA - Suicide attempt, initial encounter Plan: Patient agrees to inpatient psychiatric hospital admission (2) Drug overdose: Status: Acute Category: Medical Code(s): T50.901A - Poisoning by unspecified drugs, medicaments and biological substances, accidental (unintentional), initial encounter Plan: Patient agrees to inpatient psychiatric hospital admission (3) Intentional overdose of insulin: Status: Acute Category: Medical Code(s): T38.3X2A - Poisoning by insulin and oral hypoglycemic [antidiabetic] drugs, intentional self-harm, initial encounter Plan: Patient agrees to inpatient psychiatric hospital admission (4) Baclofen overdose: Status: Acute Category: Medical Code(s): T42.8X1A - Poisoning by antiparkinsonism drugs and other central muscle-tone depressants, accidental (unintentional), initial encounter Plan: Patient agrees to inpatient psychiatric hospital admission
[2024-09-23] MEDS: ATORVASTATIN 20MG TABLET 20 MG PO (20:19)
[2024-09-23] MEDS: PATIENT'S OWN HOME MEDICATION (Pregabalin 150 mg capsule) 150 EACH PO (20:22)
[2024-09-23 21:25] LABS: POC Glucose,Bedside 120 (70-110)
--- NOTE | 2024-09-23 22:22 | EXP.PN ---
Subjective *Date: 09/23/24 *Time: 22:22 Interval history: Patient is alert and oriented, very pleasant. Wants treatment. BH consulted. Exam Data for Last 24 hours Vital signs and Labs for Last 24 Hours: Temp Pulse Resp BP Pulse Ox O2 Del Method O2 Flow Rate 100.2 F H 97 H 18 159/75 H 95 Room Air 30 09/23/24 22:00 09/23/24 22:00 09/23/24 22:00 09/23/24 22:00 09/23/24 22:00 09/23/24 22:00 09/22/24 15:00 FiO2 25 09/23/24 12:30 Laboratory Results - last 24 hr 09/22/24 05:12: POC Glucose 147 H 09/22/24 06:04: POC Glucose 122 H 09/22/24 06:58: POC Glucose 122 H 09/22/24 08:06: POC Glucose 117 H 09/22/24 08:59: POC Glucose 93 09/22/24 10:00: POC Glucose 97 09/22/24 11:04: POC Glucose 109 09/22/24 12:04: POC Glucose 116 H 09/22/24 13:01: POC Glucose 116 H 09/22/24 13:57: POC Glucose 113 H 09/22/24 14:59: POC Glucose 114 H 09/22/24 16:01: POC Glucose 104 09/22/24 17:04: POC Glucose 96 09/22/24 18:05: POC Glucose 86 09/22/24 18:57: POC Glucose 96 09/22/24 20:05: POC Glucose 128 H 09/22/24 21:02: POC Glucose 119 H 09/22/24 22:03: POC Glucose 100 09/22/24 23:03: POC Glucose 96 09/23/24 00:13: POC Glucose 92 09/23/24 01:05: POC Glucose 106 09/23/24 02:10: POC Glucose 105 09/23/24 03:05: POC Glucose 113 H 09/23/24 04:09: POC Glucose 126 H 09/23/24 04:43: WBC 11.5 H D, RBC 4.06 L, Hgb 11.9 L D, Hct 35.8 L, MCV 88.2, MCH 29.6, MCHC 33.5, RDW 12.8, Plt Count 175, MPV 10.8 H, Neut % (Auto) 66.5, Lymph % (Auto) 21.5, [place] % (Auto) 8.8, Eos % (Auto) 2.4, Baso % (Auto) 0.5, Neut # (Auto) 7.6, Lymph # (Auto) 2.5, [place] # (Auto) 1.0, Eos # (Auto) 0.3, Baso # (Auto) 0.1, Sodium 141, Potassium 3.1 L, Chloride 108 H, Carbon Dioxide 25, Anion Gap 11.1, BUN 8 L, Creatinine 0.60 L D, Estimated Creat Clear 212, Estimated GFR 142, Est GFR ( Amer) 172 D, Glucose 120 H D, Calcium 8.2 L, Magnesium 2.0 D, Total Bilirubin 0.4, AST 20, ALT 9 L, Alkaline Phosphatase 49, Total Protein 5.9 L, Albumin 3.1 L, Globulin 2.8, Albumin/Globulin Ratio 1.1 09/23/24 05:09: POC Glucose 129 H 09/23/24 06:12: POC Glucose 154 H 09/23/24 07:28: POC Glucose 203 H 09/23/24 08:09: POC Glucose 229 H 09/23/24 09:09: POC Glucose 204 H 09/23/24 10:15: POC Glucose 187 H 09/23/24 11:08: POC Glucose 168 H 09/23/24 12:16: POC Glucose 139 H 09/23/24 13:54: POC Glucose 138 H 09/23/24 20:27: POC Glucose 120 H I & O for Last 24 hours: Intake & Output 09/20/24 09/21/24 09/22/24 09/23/24 23:59 23:59 23:59 23:59 Intake Total 3581.265 / 3581.265 4485.215 / 4485.215 3177.471 / 3177.471 Output Total 3665 / 3915 4622 / 4637 3440 / 3440 Balance -83.735 / -333.735 -136.785 / -151.785 -262.529 / -262.529 Weight 98.339 kg 96.661 kg 102.693 kg Microbiology Reports for the Last 24 Hours: Microbiology 09/21/24 13:50 Blood Blood Culture - Preliminary NO GROWTH AFTER 48 HOURS 09/21/24 13:40 Blood Blood Culture - Preliminary NO GROWTH AFTER 48 HOURS 09/21/24 08:10 Sputum - Endotracheal Tube Aspirate Gram Stain - Final 09/21/24 08:10 Sputum - Endotracheal Tube Aspirate Sputum Culture - Preliminary Gram Negative Rods Gram Negative Rods#2 09/21/24 10:55 Buttock CRE Surveillance Culture - Final Constitutional Constitutional: no acute distress *Routine HEENT Exam Head: Present normocephalic Eye: Present EOMI and PERRL ENT: Present mucous membranes moist *Routine Neck Exam Neck: Present supple; Absent lymphadenopathy *Routine Respiratory Exam Respiratory: Present CTA bilaterally *Routine Cardiovascular Exam Cardiovascular: Present RRR *Routine Abdominal Exam Abdominal: Present soft and normoactive bowel sounds; Absent tenderness *Routine Extremities Exam Extremities: Absent cyanosis, clubbing or edema *Routine Skin Exam Skin: Present warm; Absent rash *Routine Neurological Exam Neurological: Present alert Assessment and Plan *Assessment and plan (1) On mechanically assisted ventilation: Status: Acute Category: Medical Code(s): Z99.11 - Dependence on respirator [ventilator] status (2) Drug overdose: Status: Acute Category: Medical Code(s): T50.901A - Poisoning by unspecified drugs, medicaments and biological substances, accidental (unintentional), initial encounter (3) Baclofen overdose: Status: Acute Category: Medical Code(s): T42.8X1A - Poisoning by antiparkinsonism drugs and other central muscle-tone depressants, accidental (unintentional), initial encounter (4) Suicide attempt: Status: Acute Category: Medical Code(s): T14.91XA - Suicide attempt, initial encounter (5) Intentional overdose of insulin: Status: Acute Category: Medical Code(s): T38.3X2A - Poisoning by insulin and oral hypoglycemic [antidiabetic] drugs, intentional self-harm, initial encounter (6) Diabetes: Status: Acute Qualifiers: Diabetes mellitus type: type 2 Diabetes mellitus napper grinder insulin use: with mcfp use Diabetes mellitus complication status: with circulatory complication Diabetes mellitus complication detail: with other circulatory complications Qualified Code(s): E11.59 - Type 2 diabetes mellitus with other circulatory complications; Z79.4 - [facility]CI (current) use of insulin Category: Medical Code(s): E11.9 - Type 2 diabetes mellitus without complications (7) Coronary artery disease: Status: Acute Qualifiers: Coronary Disease-Associated Artery/Lesion type: [place] artery [place] vs. transplanted heart: [place] heart Associated angina: with other forms of angina Qualified Code(s): I25.118 - Atherosclerotic heart disease of [place] coronary artery with other forms of angina pectoris Category: Medical Code(s): I25.10 - Atherosclerotic heart disease of [place] coronary artery without angina pectoris Plan Kingsley Hernandez is a 49-year-old male with a medical history of multiple drug intentional overdoses/suicide attempts (last being 2 weeks ago, transferred to [facility]), major depression, insulin-dependent diabetes, seizure disorder, low back pain requiring multiple surgeries on chronic opiate therapy and work disability, obstructive sleep apnea, CVA, CAD with stent, GERD, hypertension who presents to the ED after being found unconscious around 6 AM by mother at home. Per mother at bedside, patient had gone to bed at 8 PM last night in apparently normal mood. She found him to be unconscious with nearly empty Humalog, glargine bottles and empty bottle of baclofen beside him in bed. Patient has had multiple episodes in the past overdosing on intentionally insulin. Upon further inquiry, patient's daughter encouraged patient to seek help before she visited him last night. Mother suspects this might have been a trigger. Patient was recently admitted at [facility] on 09/08/2024 where he stayed 3 to 4 days and discharged without medication changes. Mother states this is the third time in the last 2 years patient has attempted intentional suicide, and has had numerous episodes prior to then as well. Patient has been struggling with loneliness/isolation, lives with his mother, struggling with low back pain s/p multiple back surgeries requiring chronic opioid and baclofen therapy. Does not currently follow with a therapist, and upon review of home medications does not take any psychiatric medications. On arrival, patient had a GCS of 3 and was rapidly sedated intubated. Has not required sedation due to global encephalopathy from baclofen overdose. Poison control was contacted and recommended frequent Accu-Cheks and dextrose fluids. Case discussed with ED provider and decision was to admit patient for acute toxic encephalopathy from intentional baclofen and insulin overdose. #Acute toxic encephalopathy #Multidrug intentional overdose #Suicide attempt #Mechanical ventilation ? Longstanding history of untreated major depression, multiple suicide attempts. Empty glargine, Humalog, baclofen bottles found bedside. ? Globally encephalopathic, not responsive to stimuli including pain. No signs of respiratory depression at this time, but was intubated due to GCS of 3. Reassuring ABG. ? Pulmonology critical care consulted, ordered EEG which showed global slowing consistent with baclofen overdose. ? Baclofen was recently filled 8 days prior to admission, 120 pills of 10 mg. - Patient was successfully extubated today, and is alert and oriented. Continues to have slight global slowing. - Behavioral health consulted, recommended inpatient psychiatry. Case management assisting. - Patient doesn't have intent on leaving AMA, but may need involuntary hold if he decides to leave AMA. ? Lovenox 40 mg for DVT prophylaxis. #Major depression ? will defer starting treatment until transfer to inpatient psych. #Insulin-dependent diabetes ? Overdose as above. Hold insulin for now. Sugars stable. Discontinued D5 fluids. #Seizure disorder ? Continue IV Keppra 1500 mg twice daily. IV Ativan 2 mg as needed for breakthrough seizures. #CAD with stent #History of CVA ? Continue Plavix, statin. #Chronic low back pain ? Continue home oxycodone 10mg, but Q6h. #GERD ? Continue famotidine as above. #Hypertension ? Continue home medications. Full code DVT prophylaxis: Lovenox 40 mg
[2024-09-23] MEDS: FENTANYL 100MCG/2ML VIAL 25 MCG IV (23:23)
[2024-09-23 23:36] LABS: Adenovirus,PCR Not Detected (NotDetected); Chlamydophila Pneumoniae, PCR Not Detected (NotDetected); Coronavirus 19, PCR Not Detected (NotDetected); Coronovirus HKU1,PCR Not Detected (NotDetected); Influenza A, PCR Not Detected (NotDetected); Influenza AH1, 2009 Not Detected (NotDetected); Influenza AH1, PCR Not Detected (NotDetected); Influenza AH3,PCR Not Detected (NotDetected); Influenza B, PCR Not Detected (NotDetected); Mycoplasma Pneumoniae, PCR Not Detected (NotDetected); Parainfluenza 1, PCR Not Detected (NotDetected); Parainfluenza 2, PCR Not Detected (NotDetected); Parainfluenza 3, PCR Not Detected (NotDetected); Parainfluenza 4, PCR Not Detected (NotDetected)
[2024-09-24] VITALS (25 sets, daily range): BP systolic 113–182; BP diastolic 67–101; PULSE 74–96; RESP 16–51; TEMP 36.9–37.8; O2SAT 93–97; BMI 33.1
[2024-09-24] MEDS: OXYCODONE 5MG IMMEDIATE RELEASE TABLET 10 MG PO ×5 (01:15→19:44)
[2024-09-24 02:05] LABS: POC Glucose,Bedside 99 (70-110)
--- NOTE | 2024-09-24 03:46 | PC.NURSE ---
Pt states pain in his back is a 10/10, requesting pain meds. Pt playing lottery game on his phone and would not let ally and I adjust him in the bed. Pt has been in same position majority of the night. Pt refused to be laid flat so we could turn him to relieve some pressure on his bottom and low back.
--- NOTE | 2024-09-24 03:51 | PC.NURSE ---
Patient has expressed pain tonight, when it was not time for his prn earlier in the night his oxy to be given, we called supervisor [employer] Dorota and she gave us the okay to give the fentanyl on the MAY. He has also become more hypertensive throughout the night and we called to get him a prn blood pressure medication, hydralazine. will continue to monitor vitals and patient safety. He still has a sitter 1:1 at bedside with him and he is refusing all repositioning and says the only thing that helps him is his medication which is currently not due at this time. Will administer next dose at appropriate time he can have prns for pain.
[2024-09-24] MEDS: HYDRALAZINE 20MG/ML VIAL 10 MG IV (03:54)
[2024-09-24] MEDS: ACETAMINOPHEN 325MG TAB 650 MG PO (04:01)
[2024-09-24 06:22] LABS: Hematocrit 37.5 % (42.0-52.0); Hemoglobin 12.6 g/dL (14.1-18.0); Immature Granulocytes % 0.4 %; Mean Corpuscular HGB Conc 33.6 g/dL (31.8-35.4); Mean Corpuscular Hemoglobin 29.0 pg (27.0-31.2); Mean Corpuscular Volume 86.4 fl (80-94); Nucleated Red Blood Cells % 0 %; Platelet Count 219 K/mm3 (142-424); Red Blood Count 4.34 M/mm3 (4.60-6.20); Red Cell Distribution Width-SD 39.8 fL; White Blood Count 12.0 K/mm3 (4.8-10.8)
[2024-09-24 06:40] LABS: Alanine Aminotransferase 11 U/L (12-78); Albumin Level 3.6 g/dl (3.5-5.0); Albumin/Globulin Ratio 1.2 (1.1-1.8); Alkaline Phosphatase 57 U/L (38-126); Anion Gap 14.3 mEq/L (5-15); Aspartate Amino Transferase 22 U/L (17-59); Bilirubin,Total 0.8 mg/dl (0.2-1.3); Blood Urea Nitrogen 9 mg/dl (9-20); Calcium 8.7 mg/dl (8.4-10.2); Carbon Dioxide 23 mmol/L (22.0-30.0); Chloride 105 mmol/L (98-107); Creatinine Clearance Estimated 179 mL/min (50-200); Creatinine,Serum 0.70 mg/dl (0.66-1.25); Estimated Glomerular Filt Rate 119 ml/min (>60); GFR (African American) 144 ML/MIN (>60); Globulin 3.1 g/dL (1.3-3.2); Glucose 102 mg/dl (74-100); Magnesium 1.8 mg/dl (1.6-2.3); Potassium 3.3 mmoL/L (3.5-5.1); Sodium 139 mmol/L (136-145); Total Protein,Serum 6.7 g/dl (6.3-8.2)
[2024-09-24 08:11] LABS: POC Glucose,Bedside 113 (70-110)
[2024-09-24] MEDS: POTASSIUM CHLORIDE 20MEQ TAB 40 MEQ PO ×2 (08:26→11:57)
--- NOTE | 2024-09-24 08:29 | P.PN_ITS ---
Subjective *Date: 09/24/24 *Time: 08:29 Medical Exam Vital signs and Labs for Last 24 Hours: Vital Signs Temp Pulse Resp BP Pulse Ox O2 Del Method FiO2 09/24/24 08:00 96 Room Air 09/24/24 07:46 96 Room Air 09/24/24 07:00 99.3 F 86 26 H 158/76 H 96 Room Air 09/24/24 06:44 Room Air 09/24/24 06:00 99.3 F 80 25 H 157/73 H 96 Room Air 09/24/24 05:00 99.5 F 78 30 H 156/84 H 97 Room Air 09/24/24 05:00 Room Air 09/24/24 04:45 99.5 F 81 24 95 09/24/24 04:30 170/80 H 09/24/24 04:30 99.7 F H 79 24 95 09/24/24 04:15 99.7 F H 09/24/24 04:00 99.9 F H 86 35 H 96 09/24/24 04:00 170/86 H 09/24/24 04:00 99.7 F H 83 35 H 170/86 H 96 Room Air 09/24/24 04:00 89 09/24/24 04:00 97 Room Air 09/24/24 03:45 99.9 F H 86 26 H 96 09/24/24 03:41 182/92 H 09/24/24 03:41 99.9 F H 96 H 22 96 09/24/24 03:39 99.9 F H 81 27 H 96 09/24/24 03:39 182/101 H 09/24/24 03:30 181/97 H 09/24/24 03:30 99.9 F H 51 H 09/24/24 03:15 99.9 F H 76 19 95 09/24/24 03:01 100.0 F H 74 20 166/86 H 95 Room Air 09/24/24 03:00 Room Air 09/24/24 02:00 99.9 F H 91 H 24 174/87 H 96 Room Air 09/24/24 01:04 100.0 F H 84 20 97 09/24/24 01:04 166/86 H 09/24/24 01:00 Room Air 09/24/24 01:00 176/86 H 09/24/24 01:00 100.0 F H 82 20 176/86 H 97 Room Air 09/24/24 00:00 100.0 F H 78 22 161/78 H 95 Room Air 09/24/24 00:00 95 Room Air 09/24/24 00:00 83 09/23/24 23:45 100.0 F H 82 14 96 09/23/24 23:34 95 Room Air 09/23/24 23:00 100.2 F H 98 H 9 L 170/81 H 96 Room Air 09/23/24 23:00 Room Air 09/23/24 22:00 100.2 F H 97 H 18 159/75 H 95 Room Air 09/23/24 22:00 100.2 F H 96 H 23 95 09/23/24 21:00 100.0 F H 92 H 13 147/86 H 96 Room Air 09/23/24 20:43 Room Air 09/23/24 20:00 96 Room Air 09/23/24 20:00 82 09/23/24 20:00 100.2 F H 81 19 143/74 H 95 Room Air 09/23/24 19:00 100.6 F H 96 H 21 155/70 H 97 Room Air 09/23/24 18:54 Room Air 09/23/24 18:52 83 09/23/24 18:52 89 09/23/24 18:52 96 Room Air 09/23/24 18:30 100.6 F H 84 20 148/77 H 96 Room Air 09/23/24 18:01 100.6 F H 92 H 19 169/87 H 94 L Room Air 09/23/24 17:30 100.6 F H 82 21 168/81 H 96 Room Air 09/23/24 17:00 100.6 F H 84 18 167/79 H 96 Room Air 09/23/24 17:00 Room Air 09/23/24 16:31 100.6 F H 90 24 167/75 H 97 Room Air 09/23/24 16:00 Room Air 09/23/24 16:00 80 09/23/24 16:00 100.4 F H 89 15 158/100 H 97 Room Air 09/23/24 15:30 100.2 F H 86 19 161/74 H 95 Room Air 09/23/24 15:00 100.0 F H 85 16 161/97 H 96 Room Air 09/23/24 15:00 Room Air 09/23/24 14:30 99.7 F H 86 19 162/76 H 96 Room Air 09/23/24 14:00 99.5 F 82 22 152/76 H 95 Room Air 09/23/24 13:31 99.3 F 81 18 150/91 H 93 L Room Air 09/23/24 13:20 98.8 F 76 14 152/72 H 92 L Room Air 09/23/24 13:00 99.3 F 81 20 152/70 H 93 L Room Air 09/23/24 13:00 Room Air 09/23/24 12:56 94 L Nasal Cannula 09/23/24 12:51 99.3 F 84 18 169/80 H 96 Room Air 09/23/24 12:50 Room Air 09/23/24 12:30 99.1 F 77 14 145/90 H 98 Mechanical Ventilation 09/23/24 12:20 99.1 F 77 11 L 157/82 H 98 Mechanical Ventilation 09/23/24 12:00 99.0 F 79 12 160/81 H 98 Mechanical Ventilation 09/23/24 12:00 80 09/23/24 12:00 Mechanical Ventilation 09/23/24 11:20 99.3 F 80 11 L 153/77 H 99 Mechanical Ventilation 09/23/24 11:03 76 09/23/24 11:03 09/23/24 11:00 99.1 F 83 14 159/79 H 99 Mechanical Ventilation 09/23/24 11:00 Mechanical Ventilation 09/23/24 10:30 99.0 F 80 11 L 151/77 H 97 Mechanical Ventilation 09/23/24 10:20 99.0 F 84 16 157/76 H 96 Mechanical Ventilation 09/23/24 10:10 98.8 F 82 11 L 140/77 98 Mechanical Ventilation 09/23/24 10:00 98.8 F 76 14 153/80 H 98 Mechanical Ventilation 09/23/24 09:20 98.6 F 73 20 129/68 96 Mechanical Ventilation 09/23/24 09:00 98.6 F 72 23 133/76 97 Mechanical Ventilation 09/23/24 09:00 Mechanical Ventilation 09/23/24 08:30 98.4 F 75 22 131/76 97 Mechanical Ventilation 25 Intake and Output 09/23/24 09/24/24 09/24/24 23:59 07:59 15:59 Intake Total 615 / 3177.471 275 / 275 Output Total 985 / 3440 1075 / 1525 450 / 1525 Balance -370 / -262.529 -800 / -1250 -450 / -1250 Intake: Intake, Oral Amount 200 / 200 275 / 275 Intake, Total IV Amount 415 / 2081 KCl 10mEq/100ml 100 ml @ 100 200 / 200 mls/hr IV Q1H PACO Rx#:[id number] levETIRAcetam 1,500 mg In 0.9 % 215 / 215 Sodium Chloride 100 ml @ 220 mls/hr IV Q12 PACO Rx#:[id number] Output: Output, Urine Amount 825 / 920 75 / 525 450 / 525 Output, Urine Amount (Catheter) 160 / 2520 1000 / 1000 Levine 160 / 2520 1000 / 1000 Other: Number of Unmeasured Voids 0 0 0 Weight 101.423 kg Patient Weight 09/24/24 23:59 Weight 101.423 kg Laboratory Results - last 24 hr 09/22/24 05:12: POC Glucose 147 H 09/22/24 06:04: POC Glucose 122 H 09/22/24 06:58: POC Glucose 122 H 09/22/24 08:06: POC Glucose 117 H 09/22/24 08:59: POC Glucose 93 09/22/24 10:00: POC Glucose 97 09/22/24 11:04: POC Glucose 109 09/22/24 12:04: POC Glucose 116 H 09/22/24 13:01: POC Glucose 116 H 09/22/24 13:57: POC Glucose 113 H 09/22/24 14:59: POC Glucose 114 H 09/22/24 16:01: POC Glucose 104 09/22/24 17:04: POC Glucose 96 09/22/24 18:05: POC Glucose 86 09/22/24 18:57: POC Glucose 96 09/22/24 20:05: POC Glucose 128 H 09/22/24 21:02: POC Glucose 119 H 09/22/24 22:03: POC Glucose 100 09/22/24 23:03: POC Glucose 96 09/23/24 00:13: POC Glucose 92 09/23/24 01:05: POC Glucose 106 09/23/24 02:10: POC Glucose 105 09/23/24 03:05: POC Glucose 113 H 09/23/24 04:09: POC Glucose 126 H 09/23/24 05:09: POC Glucose 129 H 09/23/24 06:12: POC Glucose 154 H 09/23/24 07:28: POC Glucose 203 H 09/23/24 08:09: POC Glucose 229 H 09/23/24 09:09: POC Glucose 204 H 09/23/24 10:15: POC Glucose 187 H 09/23/24 11:08: POC Glucose 168 H 09/23/24 11:14: Chlamy pneumoniae PCR Not detected, Adenovirus (PCR) Not detected, B. pertussis DNA (PCR) Not detected, Coronavirus OC43 (PCR) Not detected, Coronavirus HKU1 (PCR) Not detected, Coronavirus 229E (PCR) Not detected, SARS-CoV-2 (PCR) Not detected, Coronavirus NL63 (PCR) Not detected, Human Metapneumovir PCR Not detected, Influenza A (H1) PCR Not detected, Influ A (H1N1/09) PCR Not detected, Influenza A (H3) PCR Not detected, Influenza Type A (PCR) Not detected, Influenza Type B (PCR) Not detected, M. pneumoniae (PCR) Not detected, Parainfluenza 1 (PCR) Not detected, Parainfluenza 2 (PCR) Not detected, Parainfluenza 3 (PCR) Not detected, Parainfluenza 4 (PCR) Not detected, RSV (PCR) Not detected, Entero/Rhino (PCR) Not detected 09/23/24 12:16: POC Glucose 139 H 09/23/24 13:54: POC Glucose 138 H 09/23/24 20:27: POC Glucose 120 H 09/24/24 01:57: POC Glucose 99 09/24/24 04:52: WBC 12.0 H, RBC 4.34 L, Hgb 12.6 L, Hct 37.5 L, MCV 86.4, MCH 29.0, MCHC 33.6, RDW 12.6, Plt Count 219 D, MPV 11.2 H, Neut % (Auto) 64.6, Lymph % (Auto) 23.9, [place] % (Auto) 8.0, Eos % (Auto) 2.5, Baso % (Auto) 0.6, Neut # (Auto) 7.8, Lymph # (Auto) 2.9, [place] # (Auto) 1.0, Eos # (Auto) 0.3, Baso # (Auto) 0.1, Sodium 139, Potassium 3.3 L, Chloride 105, Carbon Dioxide 23, Anion Gap 14.3, BUN 9, Creatinine 0.70, Estimated Creat Clear 179, Estimated GFR 119, Est GFR ( Amer) 144, Glucose 102 H, Calcium 8.7, Magnesium 1.8, Total Bilirubin 0.8, AST 22, ALT 11 L, Alkaline Phosphatase 57, Total Protein 6.7, Albumin 3.6 D, Globulin 3.1, Albumin/Globulin Ratio 1.2 09/24/24 08:03: POC Glucose 113 H I & O for Labs for Last 24 Hours: Intake & Output 09/21/24 09/22/24 09/23/24 09/24/24 23:59 23:59 23:59 23:59 Intake Total 3581.265 / 3581.265 4485.215 / 4485.215 3177.471 / 3177.471 275 / 275 Output Total 3665 / 3915 4622 / 4637 3440 / 3440 1525 / 1525 Balance -83.735 / -333.735 -136.785 / -151.785 -262.529 / -262.529 -1250 / -1250 Weight 98.339 kg 96.661 kg 102.693 kg 101.423 kg Microbiology Reports for the Last 24 Hours: Microbiology 09/21/24 08:10 Sputum - Endotracheal Tube Aspirate Gram Stain - Final 09/21/24 08:10 Sputum - Endotracheal Tube Aspirate Sputum Culture - Final Klebsiella oxytoca 09/21/24 13:50 Blood Blood Culture - Preliminary NO GROWTH AFTER 48 HOURS 09/21/24 13:40 Blood Blood Culture - Preliminary NO GROWTH AFTER 48 HOURS 09/21/24 10:55 Buttock CRE Surveillance Culture - Final The patient's infection will respond to the chosen ABx?: Yes (SPUTUM = K. OXYTOCA, SENSITIVE TO ROCEPHIN, BLOOD CX NO GROWTH AT 48 HR) Is the patient receiving the right drug, dose, and route?: Yes Could a more targeted ABx be ordered?: No How long ABx needed (days)?: 7 (ELZA)
[2024-09-24] MEDS: IRBESARTAN 75MG TABLET 75 MG PO (08:31)
[2024-09-24] MEDS: CLOPIDOGREL 75MG TAB 75 MG PO (08:31)
[2024-09-24] MEDS: ISOSORBIDE MONO 60MG TAB.ER.24H 60 MG PO (08:32)
[2024-09-24] MEDS: FAMOTIDINE 20MG/2ML VIAL 20 MG IV ×2 (08:32→20:37)
[2024-09-24] MEDS: METOPROLOL SUCCINATE XL 100MG TABLET 100 MG PO (08:34)
[2024-09-24] MEDS: levETIRAcetam 1,500 MG in 0.9 % SODIUM CHLORIDE 100 ML 220 MG IV ×2 (08:38→20:41)
[2024-09-24] MEDS: PREGABALIN 25MG CAPSULE 75 MG PO ×2 (08:39→20:37)
--- NOTE | 2024-09-24 08:40 | P.PN_ITS ---
Subjective *Date: 09/24/24 *Time: 09:13 Interval history: No acute respiratory events overnight. Patient alert awake and oriented x 3 responding appropriately. Denies any respiratory complaints Pulmonology Exam Inpatient Vital signs and Labs for Last 24 Hours: Temp Pulse Resp BP Pulse Ox O2 Del Method O2 Flow Rate 99.3 F 86 26 H 158/76 H 96 Room Air 30 09/24/24 07:00 09/24/24 07:00 09/24/24 07:00 09/24/24 07:00 09/24/24 08:00 09/24/24 08:00 09/22/24 15:00 FiO2 25 09/23/24 12:30 Laboratory Results - last 24 hr 09/22/24 05:12: POC Glucose 147 H 09/22/24 06:04: POC Glucose 122 H 09/22/24 06:58: POC Glucose 122 H 09/22/24 08:06: POC Glucose 117 H 09/22/24 08:59: POC Glucose 93 09/22/24 10:00: POC Glucose 97 09/22/24 11:04: POC Glucose 109 09/22/24 12:04: POC Glucose 116 H 09/22/24 13:01: POC Glucose 116 H 09/22/24 13:57: POC Glucose 113 H 09/22/24 14:59: POC Glucose 114 H 09/22/24 16:01: POC Glucose 104 09/22/24 17:04: POC Glucose 96 09/22/24 18:05: POC Glucose 86 09/22/24 18:57: POC Glucose 96 09/22/24 20:05: POC Glucose 128 H 09/22/24 21:02: POC Glucose 119 H 09/22/24 22:03: POC Glucose 100 09/22/24 23:03: POC Glucose 96 09/23/24 00:13: POC Glucose 92 09/23/24 01:05: POC Glucose 106 09/23/24 02:10: POC Glucose 105 09/23/24 03:05: POC Glucose 113 H 09/23/24 04:09: POC Glucose 126 H 09/23/24 05:09: POC Glucose 129 H 09/23/24 06:12: POC Glucose 154 H 09/23/24 07:28: POC Glucose 203 H 09/23/24 08:09: POC Glucose 229 H 09/23/24 09:09: POC Glucose 204 H 09/23/24 10:15: POC Glucose 187 H 09/23/24 11:08: POC Glucose 168 H 09/23/24 11:14: Chlamy pneumoniae PCR Not detected, Adenovirus (PCR) Not detected, B. pertussis DNA (PCR) Not detected, Coronavirus OC43 (PCR) Not detected, Coronavirus HKU1 (PCR) Not detected, Coronavirus 229E (PCR) Not de tected, SARS-CoV-2 (PCR) Not detected, Coronavirus NL63 (PCR) Not detected, Human Metapneumovir PCR Not detected, Influenza A (H1) PCR Not detected, Influ A (H1N1/09) PCR Not detected, Influenza A (H3) PCR Not detected, Influenza Type A (PCR) Not detected, Influenza Type B (PCR) Not detected, M. pneumoniae (PCR) Not detected, Parainfluenza 1 (PCR) Not detected, Parainfluenza 2 (PCR) Not detected, Parainfluenza 3 (PCR) Not detected, Parainfluenza 4 (PCR) Not detected, RSV (PCR) Not detected, Entero/Rhino (PCR) Not detected 09/23/24 12:16: POC Glucose 139 H 09/23/24 13:54: POC Glucose 138 H 09/23/24 20:27: POC Glucose 120 H 09/24/24 01:57: POC Glucose 99 09/24/24 04:52: WBC 12.0 H, RBC 4.34 L, Hgb 12.6 L, Hct 37.5 L, MCV 86.4, MCH 29.0, MCHC 33.6, RDW 12.6, Plt Count 219 D, MPV 11.2 H, Neut % (Auto) 64.6, Lymph % (Auto) 23.9, Angelina % (Auto) 8.0, Eos % (Auto) 2.5, Baso % (Auto) 0.6, Neut # (Auto) 7.8, Lymph # (Auto) 2.9, Angelina # (Auto) 1.0, Eos # (Auto) 0.3, Baso # (Auto) 0.1, Sodium 139, Potassium 3.3 L, Chloride 105, Carbon Dioxide 23, Anion Gap 14.3, BUN 9, Creatinine 0.70, Estimated Creat Clear 179, Estimated GFR 119, Est GFR ( Amer) 144, Glucose 102 H, Calcium 8.7, Magnesium 1.8, Total Bilirubin 0.8, AST 22, ALT 11 L, Alkaline Phosphatase 57, Total Protein 6.7, Albumin 3.6 D, Globulin 3.1, Albumin/Globulin Ratio 1.2 09/24/24 08:03: POC Glucose 113 H Temp Pulse Resp BP Pulse Ox O2 Del Method FiO2 98.8 F 62 18 106/54 L 100 Mechanical Ventilation 50 09/21/24 10:27 09/21/24 10:27 09/21/24 10:27 09/21/24 10:27 09/21/24 10:15 09/21/24 10:27 09/21/24 08:17 Laboratory Results - last 24 hr 09/21/24 07:40: VBG pH 7.34, VBG pCO2 37.7, VBG pO2 125.8 H, VBG HCO3 19.7 L, VBG Total CO2 20.9 L, VBG O2 Saturation 97.9 H, VBG Base Excess -6.1 L, VBG Lactic Acid 2.1 H 09/21/24 07:52: Total Creatine Kinase 93, Urine Color Yellow, Urine Appearance Clear, Urine pH 6.0, Ur Specific [place] 1.020, Urine Protein 1+ A, Urine Glucose (UA) 3+, Urine Ketones Negative, Urine Blood Negative, Urine Nitrate Negative, Urine Bilirubin Negative, Urine Urobilinogen 0.2, Ur Leukocyte Esterase Negative, Urine RBC None, Urine WBC Occasional, Ur Squamous Epith Cells None, Urine Bacteria None, Urine Opiates Screen Positive H, Urine Methadone Screen Negative, Ur Barbituates Screen Negative, Ur Phencyclidine Scrn Negative, Ur Amphetamines Screen Negative, U Benzodiazepines Scrn Negative, Urine Cocaine Screen Negative, U Marijuana (THC) Screen Negative 09/21/24 08:33: ABG pH 7.32 L, ABG pCO2 43.0, ABG pO2 110.4 H, ABG HCO3 21.9 L, ABG Total CO2 23.2, ABG O2 Saturation 98, ABG Base Excess -4.2 L, ABG Lactate 1.2 09/21/24 11:06: POC Glucose 172 H 09/21/24 : WBC 19.8 H, RBC 5.14, Hgb 15.3, Hct 43.9, MCV 85.4, MCH 29.8, MCHC 34.9, RDW 12.4, Plt Count 222, MPV 10.4, Neut % (Auto) 77.1, Lymph % (Auto) 11.5, Angelina % (Auto) 8.7, Eos % (Auto) 1.9, Baso % (Auto) 0.4, Neut # (Auto) 15.3 H, Lymph # (Auto) 2.3, Angelina # (Auto) 1.7 H, Eos # (Auto) 0.4, Baso # (Auto) 0.1, Total Counted 100, Neutrophils % (Manual) 76, Lymphocytes % (Manual) 13, Monocytes % (Manual) 10 H, Metamyelocytes % 1.0, Platelet Estimate Normal, RBC Morphology Normal, Sodium 143, Potassium 3.3 L, Chloride 103, Carbon Dioxide 26, Anion Gap 17.3 H, BUN 15, Creatinine 0.90, Estimated GFR 89, Est GFR ( Amer) 108, Glucose 111 H, Calcium 9.6, Total Bilirubin 0.6, AST 27, ALT 12, Alkaline Phosphatase 47, Troponin I < 0.01, Total Protein 7.3, Albumin 4.2, Globulin 3.1, Albumin/Globulin Ratio 1.4, Salicylates < 1.0 L, Acetaminophen < 10 L, Plasma/Serum Alcohol < 10 I & O for Labs for Last 24 Hours: Intake & Output 09/21/24 09/22/24 09/23/24 09/24/24 23:59 23:59 23:59 23:59 Intake Total 3581.265 / 3581.265 4485.215 / 4485.215 3177.471 / 3177.471 275 / 275 Output Total 3665 / 3915 4622 / 4637 3440 / 3440 1675 / 1675 Balance -83.735 / -333.735 -136.785 / -151.785 -262.529 / -262.529 -1400 / -1400 Weight 216 lb 12.8 oz 213 lb 1.6 oz 226 lb 6.4 oz 223 lb 9.6 oz Intake & Output 09/18/24 09/19/24 09/20/24 09/21/24 23:59 23:59 23:59 23:59 Intake Total 1000 / 1000 Output Total 1500 / 1500 Balance -500 / -500 Weight 225 lb Microbiology Reports for the Last 24 Hours: Microbiology 09/21/24 08:10 Sputum - Endotracheal Tube Aspirate Gram Stain - Final 09/21/24 08:10 Sputum - Endotracheal Tube Aspirate Sputum Culture - Final Klebsiella oxytoca 09/21/24 13:50 Blood Blood Culture - Preliminary NO GROWTH AFTER 48 HOURS 09/21/24 13:40 Blood Blood Culture - Preliminary NO GROWTH AFTER 48 HOURS 09/21/24 10:55 Buttock CRE Surveillance Culture - Final Microbiology 09/21/24 08:10 Sputum - Endotracheal Tube Aspirate Gram Stain - Final Constitutional: Present mild distress Comment:: Intubated and Sedated Head: Present normocephalic and atraumatic Neck: Present normal inspection and trachea midline Respiratory: Present patient mechanically ventilated, normal respiratory effort and able to speak in complete sentences; Absent prolonged expiratory phase, rhonchi or wheezes Cardiac: Present S1/S2 and Bradycardia GI: Present soft; Absent distention or tenderness Skin: Present intact; Absent cyanosis Neuro: Present alert, awake and oriented x 3 Extremities: Present normal inspection; Absent clubbing or cyanosis Assessment and Plan *Assessment and plan (1) Drug overdose: Status: Acute Category: Medical Code(s): T50.901A - Poisoning by unspecified drugs, medicaments and biological substances, accidental (unintentional), initial encounter (2) Suicide attempt: Status: Acute Category: Medical Code(s): T14.91XA - Suicide attempt, initial encounter (3) Pneumonia: Status: Acute Category: Medical Code(s): J18.9 - Pneumonia, unspecified organism Plan Mr. Hernandez is a 49-year-old male with reported prior history of multiple suicide attempts presented today after possible intentional overdose as per the family with a GCS of 3 needing intubation mechanical ventilatory support for airway protection pulmonary was called for further evaluation and management. As per the family concern for baclofen and insulin overdose. Initially noted to have hypoglycemia received D50 and since then receiving D5 to 50 cc, has been hyperglycemic so far Home medications include Keppra, lorazepam, insulin trazodone, baclofen, pregabalin, oxycodone and losartan. CT head upon admission no acute intracranial abnormalities. Chest x-ray no acute airspace disease. Neutrophilic predominant leukocytosis. Hypokalemia 3.3. BUN/creatinine within normal limits. Blood gas upon admission 1.32 with a pCO2 of 43.0 and a PO2 of 110.4 Patient on examination not responding to verbal or painful stimuli. No gag or cough reflex. Pinpoint pupils. No rigidity noted. Muscular tone flaccid. Spontaneous respirations noted. Minimal ventilator settings. Stat 1 hour EEG no evidence of seizure activity. Continue to receive Keppra at 1500 mg twice daily at this moment. Interval update: No acute respiratory events overnight. Status post extubation to room air. Tolerating well. No new respiratory complaints Sputum cultures grew Klebsiella sensitive to ceftriaxone. Plan: DuoNebs 4 times daily as needed Antibiotics can be weaned to cefdinir to complete a total of 5-day course. Follow-up behavioral health recommendations #Patient also admits greater than 80-mhhs-emhy smoking history. Not using any inhalers at baseline except albuterol PRN which he did not used/needed in the last 1 year. Will continue albuterol/DuoNebs 4 times daily. Thank you for involving pulmonary in this patient Will follow the patient in pulmonary clinic 4 to 6 weeks postdischarge
[2024-09-24] MEDS: NICOTINE 21MG/24HR PATCH 21 MG TD (08:59)
--- NOTE | 2024-09-24 09:40 | HMH.PTEV ---
Physical Therapy Evaluation Rehab PT IP Evaluation Start: 09/21/24 12:08 Freq: .once Status: Active Protocol: Document 09/24/24 09:38 KEYSHA (Rec: 09/24/24 09:40 KEYSHA [id number]) Subjective/History History History Per H&P: Kingsley Hernandez is a 49-year-old male with a medical history of multiple drug intentional overdoses/ suicide attempts (last being 2 weeks ago, transferred to [facility]), major depression, insulin- dependent diabetes, seizure disorder, low back pain requiring multiple surgeries on chronic opiate therapy and work disability, obstructive sleep apnea, CVA, CAD with stent, GERD, hypertension who presents to the ED after being found unconscious around 6 AM by mother at home. Per mother at bedside, patient had gone to bed at 8 PM last night in apparently normal mood. She found him to be unconscious with nearly empty Humalog, glargine bottles and empty bottle of baclofen beside him in bed. Patient has had multiple episodes in the past overdosing on intentionally insulin. Upon further inquiry, patient's daughter encouraged patient to seek help before she visited him last night. Mother suspects this might have been a trigger. Patient was recently admitted at [facility] on 2024 where he stayed 3 to 4 days and discharged without medication changes. Mother states this is the third time in the last 2 years patient has attempted intentional suicide, and has had numerous episodes prior to then as well. Patient has been struggling with loneliness/isolation, lives with his mother, struggling with low back pain s/p multiple back surgeries requiring chronic opioid and baclofen therapy . Does not currently follow with a therapist, and upon review of home medications does not take any psychiatric medications. On arrival, patient had a GCS of 3 and was rapidly sedated intubated. Has not required sedation due to global encephalopathy from baclofen overdose. Poison control was contacted and recommended frequent Accu-Cheks and dextrose fluids. Case discussed with ED provider and decision was to admit patient for acute toxic encephalopathy from intentional baclofen and insulin overdose. Subjective Subjective I can walk Pt reports he was IND prior to admission. Pt rents a room from his parents. Pt not driving. New diagnosis of No cancer in past 12 months? [facility] How much help from another person do you currently need... Turning from your None back to your side while in a flat bed without using bedrails? Moving from lying on None back to sitting on the side of a flat bed without using bedrails? Moving to and from a None bed to a chair ( including a wheelchair)? Standing up from a None chair using your arms? (e.g., wheelchair, bedside chair) Walking in hospital None room? Climbing 3-5 steps A little with a railing? Mobility Score 23 Mobility Level [facility] Mobility 7 Walk 25 feet or more Mobility Calculator Rehab PT IP Eval Objective Appearance Patient Behavior Appropriate,Cooperative Patient Orientation Person,Place Difficulty following none instructions Speech Pattern Clear Ambulation Patient Able to Yes Ambulate Ambulation Observation IP General Gait No Deviations/Normal Pattern Observation Ambulation Distance 100 (feet) Ambulation Assistive None Device Ambulation Ability Supervision/Stand by Balance Ability to Arise Able, uses arms to help Sitting Balance Steady, safe Standing Balance Steady, wide stance Dynamic Sitting Good Balance Ability Dynamic Standing Good Balance Ability Transfers Bed Transfer Ability Independent Sit to Stand Bed Independent Transfer Ability Rehab PT IP prob,goals,plan Problems Date of Evaluation: 09/24/24 Rehab Potential Rehab Potential Innapropriate for Skilled Therapy Discharge Plan PT Discharge Plan Pt most appropriate to d/c home when deemed medically necessary d/t current level of mobility, home set-up, and family support. Pt not appropriate for skilled acute care PT at this time d/t pt?s mobility being at baseline. Eval Complexity Eval Charge Codes 53433 - Moderate Complexity PHYSICIAN CERTIFICATION: I certify the specified therapy services for Kingsley Hernandez are required, authorized, and reviewed every 30 days.
--- NOTE | 2024-09-24 09:48 | HMH.OTEV ---
OT Inpatient Evaluation Rehab OT IP Evaluation Start: 09/22/24 08:00 Freq: ONCE Status: Active Protocol: Document 09/24/24 09:45 HERMINIA (Rec: 09/24/24 09:47 [facility] [id number] Rehab OT IP Assessment Subjective History Pt oriented x 3 on arrival. Pt agreeable to engage in therapy evaluation. Pt admitted on 09/21/24 due to overdose. History and physical: Kingsley Hernandez is a 49-year-old male with a medical history of multiple drug intentional overdoses/suicide attempts (last being 2 weeks ago, transferred to [facility]), major depression, insulin- dependent diabetes, seizure disorder, low back pain requiring multiple surgeries on chronic opiate therapy and work disability, obstructive sleep apnea, CVA, CAD with stent, GERD, hypertension who presents to the ED after being found unconscious around 6 AM by mother at home. Per mother at bedside, patient had gone to bed at 8 PM last night in apparently normal mood. She found him to be unconscious with nearly empty Humalog, glargine bottles and empty bottle of baclofen beside him in bed. Patient has had multiple episodes in the past overdosing on intentionally insulin. Upon further inquiry, patient's daughter encouraged patient to seek help before she visited him last night. Mother suspects this might have been a trigger. Patient was recently admitted at [facility] on 2024 where he stayed 3 to 4 days and discharged without medication changes. Mother states this is the third time in the last 2 years patient has attempted intentional suicide, and has had numerous episodes prior to then as well. Patient has been struggling with loneliness/isolation, lives with his mother, struggling with low back pain s/p multiple back surgeries requiring chronic opioid and baclofen therapy . Does not currently follow with a therapist, and upon review of home medications does not take any psychiatric medications. On arrival, patient had a GCS of 3 and was rapidly sedated intubated. Has not required sedation due to global encephalopathy from baclofen overdose. Poison control was contacted and recommended frequent Accu-Cheks and dextrose fluids. Case discussed with ED provider and decision was to admit patient for acute toxic encephalopathy from intentional baclofen and insulin overdose. Subjective Prior to being in the hospital, pt reports he lived at home with his mother and step-father. He is normally independent with dressing, bathing and feeding. Uses a cane during functional transfers. No longer drives. Dependent upon family for completion of all IADLs. Objective Patient Orientation Person,Place,Birthday Right Upper WFL Extremity Gross ROM Left Upper Extremity WFL Gross ROM Bed Mobility bed mobility-scooting,bed mobility - supine/sit Assist Level Supervision/Stand by Transfer Training Sit/Stand Transfer Assist Level Supervision/Stand by Chair Transfer Supervision/Stand by Ability Chair Transfer Sit to/from Ambulatory Technique Chair Transfer None Assistive Devices Lower Body Dressing Standby Assistance Ability Rehab OT IP prob,goals,plan Problems Date of Evaluation: 09/24/24 Rehab Potential Rehab Potential Innapropriate for Skilled Therapy Discharge Plan OT Discharge Plan Pt appears to be at his baseline with functional transfers and ADL independence. Pt can return home with family assistance as needed once medically stable per physician. Eval Complexity Eval Charge Codes 09740 - Moderate Complexity PHYSICIAN CERTIFICATION: I certify the specified therapy services for Kingsley Hernandez are required, authorized, and reviewed every 30 days.
--- NOTE | 2024-09-24 09:51 | PC.NURSE ---
Levine catheter discontinued at this time. Levine Catheter tubing intact. Patient tolerated well. Continuation of care plan.
--- NOTE | 2024-09-24 10:52 | PC.NURSE ---
Spoke w/ Rony @ poison control, update given.
--- NOTE | 2024-09-24 10:53 | PC.NURSE ---
Primary RN notified Yang Echols of patient complaining of 8/10 left knee and left hip pain. Per Yang Echols, administer oxycodone now. Continuation of care plan.
--- NOTE | 2024-09-24 13:00 | PC.NURSE ---
Podiatry contacted by [facility] for consult. Clinic called back and stated they did not have any providers in today to see pt.
--- NOTE | 2024-09-24 14:19 | HMH.SLDYSPHA ---
Speech & Language Evaluation Speech/Language Dysphagia Evaluation Start: 09/24/24 14:11 Freq: ONCE Status: Active Protocol: Document 09/24/24 14:12 VIDHICATHERINE (Rec: 09/24/24 14:19 [facility] [id number]) Dysphagia Assess/Goals/Plan Assessment Date of Evaluation: 09/24/24 Evaluation Type Initial Certification Assessment/Problems post-extubation protocol per MD order Does Patient Qualify No for Service Qualify/Failure Based on clinical observations made at the bedside Comment throughout swallow assessment, mastication and manipulation of the bolus and swallowing appear to be WFL with no overt s/sxs of aspiration exhibited throughout CSE. No further skilled speech therapy services are warranted at this time. Recommendations PHYSICIAN CERTIFICATION: The specified therapy services are required, authorized, and reviewed every 30 days. Diet Recommendations Mechanical Soft Liquid Type Normal/Thin Recommendations SL Swallow Alt bite w/sip thru meal,Standard Aspiration Prec. Guidelines Dysphagia Swallow Sitting Upright (90 deg),Small Bites and Sips,Alternate Precautions/ Liquids/Solids Strategies Plan Pt/Guardian verbally Yes ack understanding of dx/prognosis/ goals G -code Required No Education Instructions Discussed results of CSE, reviewed aspiration risks/ provided precautions and compensatory strategies, and provided education on diet recommendations to pt, nursing, and care management all of which expressed understanding. Pt/Caregiver able to Able to recall/restate recall information Reinforcement needed No Speech & Language HPI History Present Illness Description of EXERCISER pulled following information from chart review and Patient Problem H&P, Kingsley Hernandez is a 49-year-old male with a medical history of multiple drug intentional overdoses/suicide attempts (last being 2 weeks ago, transferred to [facility]), major depression, insulin- dependent diabetes, seizure disorder, low back pain requiring multiple surgeries on chronic opiate therapy and work disability, obstructive sleep apnea, CVA, CAD with stent, GERD, hypertension who presents to the ED after being found unconscious around 6 AM by mother at home. Per mother at bedside, patient had gone to bed at 8 PM last night in apparently normal mood. She found him to be unconscious with nearly empty Humalog, glargine bottles and empty bottle of baclofen beside him in bed. Patient has had multiple episodes in the past overdosing on intentionally insulin. Upon further inquiry, patient's daughter encouraged patient to seek help before she visited him last night. Mother suspects this might have been a trigger. Patient was recently admitted at [facility] on 2024 where he stayed 3 to 4 days and discharged without medication changes. Mother states this is the third time in the last 2 years patient has attempted intentional suicide, and has had numerous episodes prior to then as well. Patient has been struggling with loneliness/isolation, lives with his mother, struggling with low back pain s/p multiple back surgeries requiring chronic opioid and baclofen therapy . Does not currently follow with a therapist, and upon review of home medications does not take any psychiatric medications. On arrival, patient had a GCS of 3 and was rapidly sedated intubated. Has not required sedation due to global encephalopathy from baclofen overdose. Poison control was contacted and recommended frequent Accu-Cheks and dextrose fluids. Case discussed with ED provider and decision was to admit patient for acute toxic encephalopathy from intentional baclofen and insulin overdose. PMHx includes: On mechanically assisted ventilation Drug overdose Depression Anxiety SOB (shortness of breath) Chest pain Abnormal findings on diagnostic imaging of heart and coronary circulation Abnormal nuclear cardiac imaging test History of tonsillitis Diabetes CVA (cerebral vascular accident) Skin induration Deviated septum Right maxillary sinus opacification Headache Chronic sinusitis Right sided facial pain Pain due to onychomycosis of toenail Neuropathy involving both lower extremities Bilateral foot pain Nail fungus Pt/Caregiver extubated 09/23 at 12:45 Concerns Language Primary Language Macedonian General Information General Current Food NPO Consistancy Dentition Edentulous Patient Orientation Person,Place,Time Ability to Follow Good Directions Communication Mild Impairment Ability Dysphagia:Food Presentation Evaluation Food Type Pureed,Mechanical Soft,Liquid,Pudding Dysphagia Evaluation Pt was seen sitting upright in chair and was A&Ox3. Summary Nursing reports he has tolerated oral care and water throughout day following post-extubation. Pt reports mother is bringing dentures today, but at time of eval was edentulous. Pt was given the following bolus consistency trials x2 throughout CSE to assess for consistency and/or fatigue: thin liquids via ice chips/ spoonful/open cup & straw sip/subsequent sips from open cup & straw, pudding, pureed applesauce, and mechanical soft via nutrigrain bar. Pt demonstrated no overt s/sxs of aspiration throughout eval. EXERCISER discussed results of CSE and recommended diet with pt and nursing who expressed understanding. No further skilled speech therapy services are warranted at this time. Stroke Dysphagia Assessment PHYSICIAN CERTIFICATION: I certify the specified therapy services for Kingsley Hernandez are required, authorized, and reviewed every 30 days.
[2024-09-24 14:35] LABS: POC Glucose,Bedside 157 (70-110)
--- NOTE | 2024-09-24 16:05 | EXP.DC.SUM ---
General Admission date:: 09/21/24 HPI HPI HPI: Kingsley Hernandez is a 49-year-old male with a medical history of multiple drug intentional overdoses/suicide attempts (last being 2 weeks ago, transferred to [facility]), major depression, insulin-dependent diabetes, seizure disorder, low back pain requiring multiple surgeries on chronic opiate therapy and work disability, obstructive sleep apnea, CVA, CAD with stent, GERD, and hypertension. Patient states that he has had multiple suicide attempts and psychiatric hospitalizations in the past. Patient reports that in the past he has been admitted to [facility], [facility], [facility], [facility], and [facility]. The psychiatric admissions have been for suicidal ideation, suicide attempt, and alcohol and drug abuse. Patient states that he had been living in [place] with his prior to having several CVAs. Patient states that he was in assisted living and in a senior living when his was no longer able to care for him. Patient states that after his CVAs when he was living with his and that started having suicidal ideation because he could not complete the tasks that he has been able to in the past and was unable to care for himself like he had been able to. Patient states that he was admitted to [facility] in [place] several times after his CVA for suicidal ideation and suicide attempt. Patient reports that his plamn for suicide has always been overdose. Patient states that approximately 2 years ago his mom moved him down here to [place] and within the last 2 years he has had 3 or 4 suicide attempts by trying to overdose on insulin. Patient states that he was also hospitalized at [facility] and [facility] for alcohol and drug abuse. Mom states that when he was hospitalized for alcohol and drug abuse she had previously taken over caring for patient's medicine because she thought him abusing his Lyrica, oxycodone and Ativan. Mom states that she had his a medicine door and patient had failed it she has been lost to medicine and the loss thoughts and patient had found the carter. Mom now wears a carter for the lock box around her neck so that it is always with her and he does not have access to it. Patient does not have access to his Lyrica, Ativan and oxycodone unless it is a scheduled time for him to get them throughout the day. Patient states that he no longer drinks alcohol and has not had a problem with drinking for about 2 years. The patient currently reports that he has no thoughts of trying to commit suicide and states that he has done trying to . Patient states he was triggered prior to this suicide attempt by his stepfather who wants him to quit smoking and he feels like he has been nagging him to quit smoking because he has diabetes and he recently received 2 stents during a heart cath. Patient reports that he has been trying to cut back on smoking and he currently has not been 1 pack/day of cigarettes. Patient states that he feels like he is a burden to his mom and stepdad and he feels like his stepdad is tired of him being at the house. Patient states that he felt like it would be easier for his mom and stepdad if he was no longer there. Patient also states that he was triggered because his did not want their daughter to come down and visit because of his recent suicide attempt 2 weeks ago and she was afraid that patient would attempt suicide again father daughter was fair. Patient's was trying to take their daughter from seeing her dad like this. Patient states that he now understands her reasoning but was very upset at the time. Patient reports that he would like to go back to [facility] to be in a senior living or assisted living so that he can be near his and daughter again. Patient is hopeful that he can find placement in an assisted living facility when he is finished with his inpatient psychiatric care so that he can be near his and daughter. Patient states that he has been on mental health medication in the past feeling that he remembers is bupropion and he was taken off of that after his CVAs because he started having seizures. Mental Status Exam: MOOD: Patient is calm, cooperative, and engaged in the hospital today. ANXIETY: There are no apparent signs of anxiety. APPEARANCE: Patient is normal in appearance with age appropriate dress and grooming and appears to be stated age. APPETITE: No issues with appetite. No significant weight loss or weight gain. ENERGY: Energy is normal. CONCENTRATION: WNL IRRITABILITY: denies AFFECT: Full-range. THOUGHT CONTENT AND PROCESS: Hallucinations and delusions are denied and behavior is generally appropriate. Associations are intact, thinking is basically logical and thought content is appropriate. There are no signs of cognitive difficulty, based on vocabulary and fund of knowledge. SPEECH: Speech is normal in rate, volume, and articulation and language skills are intact. PSYCHOMOTOR: There is no apparent psychomotor retardation noted at this time. ORIENTATION: Memory is intact for recent and remote events and the patient is oriented to time, place, and person. SUICIDAL IDEATIONS: Patient was admitted for suicide attempt, patient denies current suicidal ideations or plans and patient also denies homicidal ideation. HOMICIDAL IDEATIONS: Homicidal or assaultive ideas or intentions are also denied. INSIGHT: Insight appears to be intact. JUDGMENT: Judgment is intact. Hospital Course Hospital Course Hospital Course: Kingsley Hernandez is a 49-year-old male with a medical history of multiple drug intentional overdoses/suicide attempts (last being 2 weeks ago, transferred to [facility]), major depression, insulin-dependent diabetes, seizure disorder, low back pain requiring multiple surgeries on chronic opiate therapy and work disability, obstructive sleep apnea, CVA, CAD with stent, GERD, hypertension who presents to the ED after being found unconscious around 6 AM by mother at home. Per mother at bedside, patient had gone to bed at 8 PM last night in apparently normal mood. She found him to be unconscious with nearly empty Humalog, glargine bottles and empty bottle of baclofen beside him in bed. Patient has had multiple episodes in the past overdosing on intentionally insulin. Upon further inquiry, patient's daughter encouraged patient to seek help before she visited him last night. Mother suspects this might have been a trigger. Patient was recently admitted at [facility] on 09/08/2024 where he stayed 3 to 4 days and discharged without medication changes. Mother states this is the third time in the last 2 years patient has attempted intentional suicide, and has had numerous episodes prior to then as well. Patient has been struggling with loneliness/isolation, lives with his mother, struggling with low back pain s/p multiple back surgeries requiring chronic opioid and baclofen therapy. Does not currently follow with a therapist, and upon review of home medications does not take any psychiatric medications. On arrival, patient had a GCS of 3 and was rapidly sedated intubated. Has not required sedation due to global encephalopathy from baclofen overdose. Poison control was contacted and recommended frequent Accu-Cheks and dextrose fluids. Case discussed with ED provider and decision was to admit patient for acute toxic encephalopathy from intentional baclofen and insulin overdose. #Acute toxic encephalopathy #Multidrug intentional overdose #Suicide attempt #Mechanical ventilation ? Longstanding history of untreated major depression, multiple suicide attempts. Empty glargine, Humalog, baclofen bottles found bedside. ? Globally encephalopathic, not responsive to stimuli including pain. No signs of respiratory depression at this time, but was intubated due to GCS of 3. Reassuring ABG. ? Pulmonology critical care consulted, ordered EEG which showed global slowing consistent with baclofen overdose. ? Baclofen was recently filled 8 days prior to admission, 120 pills of 10 mg. - Patient was successfully extubated on 09/23/2024, and is alert and oriented. Very pleasant, has tremendous remorse for drug overdose. Wants further psychiatric treatment. - Behavioral health consulted, recommended inpatient psychiatry. Graciously accepted to [facility] in [place]. Patient will be driven by his father in stable condition. #Aspiration pneumonia ? Sputum culture growing Klebsiella oxytoca, sensitive to cephalosporins. ? Treated with ceftriaxone, discharged with cefdinir for 3 more days. #Major depression ? Behavioral health will defer starting treatment until transfer to inpatient psych. #Insulin-dependent diabetes #Peripheral neuropathy ? Overdose as above. Treated with D5 fluids. Blood sugars in the mid 150s without insulin. Resume home insulin as appropriate. ? Reduced home pregabalin to 75 mg twice daily, could be contributing to depression. Previously on 150 mg 3 times daily. #Seizure disorder ? Continue Keppra 1500 mg twice daily. #CAD with stent #History of CVA ? Continue Plavix, statin. #Chronic low back pain ? Continue home oxycodone 10mg every 4 hours as needed. #GERD ? Continue famotidine as above. #Hypertension ? Continue home medications. Total time spent on discharge: 32 minutes on chart review, counseling, documentation, and direct care with patient. Exam Data for Last 24 hours Vital signs and Labs for Last 24 Hours: Temp Pulse Resp BP Pulse Ox O2 Del Method O2 Flow Rate 99.5 F 75 16 113/67 93 L Room Air 30 09/24/24 09:00 09/24/24 12:00 09/24/24 12:00 09/24/24 12:00 09/24/24 15:23 09/24/24 15:23 09/22/24 15:00 FiO2 09/23/24 12:30 Laboratory Results - last 24 hr 09/23/24 11:14: Chlamy pneumoniae PCR Not detected, Adenovirus (PCR) Not detected, B. pertussis DNA (PCR) Not detected, Coronavirus OC43 (PCR) Not detected, Coronavirus HKU1 (PCR) Not detected, Coronavirus 229E (PCR) Not detected, SARS-CoV-2 (PCR) Not detected, Coronavirus NL63 (PCR) Not detected, Human Metapneumovir PCR Not detected, Influenza A (H1) PCR Not detected, Influ A (H1N1/09) PCR Not detected, Influenza A (H3) PCR Not detected, Influenza Type A (PCR) Not detected, Influenza Type B (PCR) Not detected, M. pneumoniae (PCR) Not detected, Parainfluenza 1 (PCR) Not detected, Parainfluenza 2 (PCR) Not detected, Parainfluenza 3 (PCR) Not detected, Parainfluenza 4 (PCR) Not detected, RSV (PCR) Not detected, Entero/Rhino (PCR) Not detected 09/23/24 20:27: POC Glucose 120 H 09/24/24 01:57: POC Glucose 99 09/24/24 04:52: WBC 12.0 H, RBC 4.34 L, Hgb 12.6 L, Hct 37.5 L, MCV 86.4, MCH 29.0, MCHC 33.6, RDW 12.6, Plt Count 219 D, MPV 11.2 H, Neut % (Auto) 64.6, Lymph % (Auto) 23.9, [place] % (Auto) 8.0, Eos % (Auto) 2.5, Baso % (Auto) 0.6, Neut # (Auto) 7.8, Lymph # (Auto) 2.9, [place] # (Auto) 1.0, Eos # (Auto) 0.3, Baso # (Auto) 0.1, Sodium 139, Potassium 3.3 L, Chloride 105, Carbon Dioxide 23, Anion Gap 14.3, BUN 9, Creatinine 0.70, Estimated Creat Clear 179, Estimated GFR 119, Est GFR ( Amer) 144, Glucose 102 H, Calcium 8.7, Magnesium 1.8, Total Bilirubin 0.8, AST 22, ALT 11 L, Alkaline Phosphatase 57, Total Protein 6.7, Albumin 3.6 D, Globulin 3.1, Albumin/Globulin Ratio 1.2 09/24/24 08:03: POC Glucose 113 H 09/24/24 14:27: POC Glucose 157 H I & O for Last 24 hours: Intake & Output 09/21/24 09/22/24 09/23/24 09/24/24 23:59 23:59 23:59 23:59 Intake Total 3581.265 / 3581.265 4485.215 / 4485.215 3177.471 / 3177.471 1005 / 1005 Output Total 3665 / 3915 4622 / 4637 3440 / 3440 2600 / 2600 Balance -83.735 / -333.735 -136.785 / -151.785 -262.529 / -262.529 -1595 / -1595 Weight 98.339 kg 96.661 kg 102.693 kg 101.423 kg Microbiology Reports for the Last 24 Hours: Microbiology 09/21/24 08:10 Sputum - Endotracheal Tube Aspirate Gram Stain - Final 09/21/24 08:10 Sputum - Endotracheal Tube Aspirate Sputum Culture - Final Klebsiella oxytoca 09/21/24 13:50 Blood Blood Culture - Preliminary NO GROWTH AFTER 48 HOURS 09/21/24 13:40 Blood Blood Culture - Preliminary NO GROWTH AFTER 48 HOURS Constitutional Constitutional: no acute distress *Routine HEENT Exam Head: Present normocephalic Eye: Present EOMI and PERRL ENT: Present mucous membranes moist *Routine Neck Exam Neck: Present supple; Absent lymphadenopathy *Routine Respiratory Exam Respiratory: Present CTA bilaterally *Routine Cardiovascular Exam Cardiovascular: Present RRR *Routine Abdominal Exam Abdominal: Present soft and normoactive bowel sounds; Absent tenderness *Routine Extremities Exam Extremities: Absent cyanosis, clubbing or edema *Routine Skin Exam Skin: Present warm; Absent rash *Routine Neurological Exam Neurological: Present alert Results Data Completed and Pending Labs on day of discharge: Labs from last 24 hours 09/24/24 09/24/24 09/24/24 14:27 08:03 04:52 WBC 12.0 H RBC 4.34 L Hgb 12.6 L Hct 37.5 L MCV 86.4 MCH 29.0 MCHC 33.6 RDW 12.6 Plt Count 219 D MPV 11.2 H Neut % (Auto) 64.6 Lymph % (Auto) 23.9 [place] % (Auto) 8.0 Eos % (Auto) 2.5 Baso % (Auto) 0.6 Neut # (Auto) 7.8 Lymph # (Auto) 2.9 [place] # (Auto) 1.0 Eos # (Auto) 0.3 Baso # (Auto) 0.1 Sodium 139 Potassium 3.3 L Chloride 105 Carbon Dioxide 23 Anion Gap 14.3 BUN 9 Creatinine 0.70 Estimated Creat Clear 179 Estimated GFR 119 Est GFR ( Amer) 144 Glucose 102 H POC Glucose 157 H 113 H Calcium 8.7 Magnesium 1.8 Total Bilirubin 0.8 AST 22 ALT 11 L Alkaline Phosphatase 57 Total Protein 6.7 Albumin 3.6 D Globulin 3.1 Albumin/Globulin Ratio 1.2 Chlamy pneumoniae PCR Adenovirus (PCR) B. pertussis DNA (PCR) Coronavirus OC43 (PCR) Coronavirus HKU1 (PCR) Coronavirus 229E (PCR) SARS-CoV-2 (PCR) Coronavirus NL63 (PCR) Human Metapneumovir PCR Influenza A (H1) PCR Influ A (H1N1/09) PCR Influenza A (H3) PCR Influenza Type A (PCR) Influenza Type B (PCR) M. pneumoniae (PCR) Parainfluenza 1 (PCR) Parainfluenza 2 (PCR) Parainfluenza 3 (PCR) Parainfluenza 4 (PCR) RSV (PCR) Entero/Rhino (PCR) 09/24/24 09/23/24 09/23/24 01:57 20:27 11:14 WBC RBC Hgb Hct MCV MCH MCHC RDW Plt Count MPV Neut % (Auto) Lymph % (Auto) [place] % (Auto) Eos % (Auto) Baso % (Auto) Neut # (Auto) Lymph # (Auto) [place] # (Auto) Eos # (Auto) Baso # (Auto) Sodium Potassium Chloride Carbon Dioxide Anion Gap BUN Creatinine Estimated Creat Clear Estimated GFR Est GFR ( Amer) Glucose POC Glucose 99 120 H Calcium Magnesium Total Bilirubin AST ALT Alkaline Phosphatase Total Protein Albumin Globulin Albumin/Globulin Ratio Chlamy pneumoniae PCR Not detected Adenovirus (PCR) Not detected B. pertussis DNA (PCR) Not detected Coronavirus OC43 (PCR) Not detected Coronavirus HKU1 (PCR) Not detected Coronavirus 229E (PCR) Not detected SARS-CoV-2 (PCR) Not detected Coronavirus NL63 (PCR) Not detected Human Metapneumovir PCR Not detected Influenza A (H1) PCR Not detected Influ A (H1N1/09) PCR Not detected Influenza A (H3) PCR Not detected Influenza Type A (PCR) Not detected Influenza Type B (PCR) Not detected M. pneumoniae (PCR) Not detected Parainfluenza 1 (PCR) Not detected Parainfluenza 2 (PCR) Not detected Parainfluenza 3 (PCR) Not detected Parainfluenza 4 (PCR) Not detected RSV (PCR) Not detected Entero/Rhino (PCR) Not detected Preliminary micro results at discharge 09/21/24 13:50 Blood Culture - Preliminary Blood NO GROWTH AFTER 48 HOURS 09/21/24 13:40 Blood Culture - Preliminary Blood NO GROWTH AFTER 48 HOURS DS: Diagnosis Discharge Diagnosis (1) Drug overdose: Status: Acute Code(s): T50.901A - Poisoning by unspecified drugs, medicaments and biological substances, accidental (unintentional), initial encounter (2) Suicide attempt: Status: Acute Code(s): T14.91XA - Suicide attempt, initial encounter (3) Pneumonia: Status: Acute Code(s): J18.9 - Pneumonia, unspecified organism Meds Home Medications and Allergies Home Medications ?Medication ?Instructions ?Recorded ?Confirmed ?Type levetiracetam 750 mg tablet 1,500 mg PO BID Seizures 08/15/22 09/21/24 History lorazepam 1 mg tablet 1 mg PO TID Seizures 08/15/22 09/21/24 History losartan 50 mg tablet 50 mg PO DAILY Hypertension 08/15/22 09/21/24 History rosuvastatin 10 mg tablet 10 mg PO DAILY Cholesterol 08/15/22 09/21/24 History topiramate 25 mg tablet 25 mg PO HS Headache prevention 08/15/22 09/21/24 History insulin glargine 100 unit/mL 90 unit SQ BID 04/14/23 09/21/24 History subcutaneous solution (Lantus U-100 Insulin) clopidogrel 75 mg tablet (Plavix) 75 mg PO DAILY 05/06/23 09/21/24 History fenofibrate nanocrystallized 48 mg 48 mg PO HS 05/06/23 09/21/24 History tablet folic acid 400 mcg tablet 400 mg PO DAILY 05/06/23 09/21/24 History insulin aspart U-100 100 unit/mL 1 sliding scale dose SQ 05/06/23 09/21/24 History subcutaneous solution (Novolog USEASDIRECTD U-100 Insulin aspart) insulin syringe-needle U-100 1 mL #10 ea 05/06/23 09/16/24 History 31 gauge x 5/16 (BD Insulin Syringe Ultra-Fine) pantoprazole 20 mg tablet,delayed 20 mg PO DAILY PRN Heartburn 05/06/23 09/21/24 History release (Protonix) potassium chloride 10 mEq 10 meq PO DAILY 05/06/23 09/21/24 History capsule,extended release trazodone 50 mg tablet 50 mg PO HS 05/06/23 09/16/24 History calcitriol 0.25 mcg capsule 0.25 mcg PO MOWEFR 03/24/24 09/21/24 History empagliflozin 25 mg tablet 25 mg PO DAILY 03/24/24 09/21/24 History (Jardiance) blood-glucose sensor (FreeStyle #1 ea 07/26/24 09/16/24 History Eugenie 3 Sensor device) flash glucose scanning reader #1 ea 07/26/24 09/16/24 History (FreeStyle Eugenie 2 Midway) metoprolol succinate 100 mg 100 mg PO DAILY 08/02/24 09/21/24 History tablet,extended release 24 hr isosorbide mononitrate 60 mg 60 mg PO DAILY #90 tabs 08/23/24 09/21/24 Rx tablet,extended release 24 hr oxycodone 10 mg tablet 10 mg PO Q4HP Moderate Pain (Scale 08/23/24 09/21/24 History Score 7/10) blood pressure monitor (Blood #1 ea 09/16/24 09/16/24 Rx Pressure Kit) ranolazine 1,000 mg 1,000 mg PO BID #60 tabs 09/16/24 09/21/24 Rx tablet,extended release,12 hr cefdinir 300 mg capsule 300 mg PO BID 3 days #6 caps 09/24/24 Rx pregabalin 150 mg capsule 75 mg (1/2 x 150 mg) PO BID Nerve 09/24/24 09/21/24 Rx Pain 30 days #0 caps New Prescriptions to Start Prescriptions: cefdinir Yang Echols Allergies Allergy/AdvReac Type Severity Reaction Status Date / Time aspirin Allergy Severe Anaphylaxis Verified 09/16/24 10:31 ibuprofen (From Motrin) Allergy Severe Anaphylaxis Verified 09/16/24 10:31 naproxen (From Aleve) Allergy Severe Anaphylaxis Verified 09/16/24 10:31 NSAIDS (Non-Steroidal Allergy Severe Anaphylaxis Verified 09/16/24 10:31 Anti-Inflamma bee venom protein (honey bee) Allergy Anaphylaxis Verified 09/16/24 10:31 metoclopramide (From Reglan) AdvReac Intermediate Agitated Verified 09/16/24 10:31 midazolam (From Versed) AdvReac Verified 09/16/24 10:31 Discharge Plan Disposition Patient Disposition: Home, Self-Care Condition: Fair Discharge Order Discharge Orders: Discharge Order (Routine); Ordered 09/24/24 Ordered By: Yang Echols Follow up Plan Follow up with: Margaret Wynn MD [Physician, Pulmonology] - 1 month Prescriptions/Medication Reconciliation: New cefdinir 300 mg capsule 300 mg PO BID 3 Days Qty: 6 0RF Continued potassium chloride 10 mEq capsule, extended release 10 meq PO DAILY trazodone 50 mg tablet 50 mg PO HS Patient Comments: TAKE 1 TABLET BY MOUTH EVERY NIGHT AT BEDTIME clopidogrel [Plavix] 75 mg tablet 75 mg PO DAILY folic acid 400 mcg tablet 400 mg PO DAILY Patient Comments: TAKE 1 TABLET BY MOUTH ONCE DAILY pantoprazole [Protonix] 20 mg tablet,delayed release (DR/EC) 20 mg PO DAILY PRN (Reason: Heartburn) insulin aspart U-100 [Novolog U-100 Insulin aspart] 100 unit/mL solution 1 sliding scale dose SQ USEASDIRECTD (DME) insulin syringe-needle U-100 [BD Insulin Syringe Ultra-Fine] 1 mL 31 gauge x 5/16 syringe See Rx Instructions .ROUTE .MEDSUPPLY Qty: 10 Patient Comments: USE DIRECTED SUBCUTANEOUS FOUR TIMES DAILY Rx Instructions: As directed fenofibrate nanocrystallized 48 mg tablet 48 mg PO HS calcitriol 0.25 mcg capsule 0.25 mcg PO MOWEFR Patient Comments: TAKE 1 CAPSULE BY MOUTH 3 TIMES A WEEK Rx Instructions: Patient takes every other day in a week. Jardiance 25 mg tablet 25 mg PO DAILY (DME) FreeStyle Eugenie 3 Sensor Device See Rx Instructions .ROUTE .MEDSUPPLY Qty: 1 Patient Comments: USE DIRECTED EVERY 15 DAYS Rx Instructions: As directed (DME) FreeStyle Eugenie 2 Midway Misc See Rx Instructions .ROUTE .MEDSUPPLY Qty: 1 Patient Comments: USE DIRECTED Rx Instructions: As directed (DME) blood pressure monitor [Blood Pressure Kit] Kit See Rx Instructions .Route Qty: 1 0RF Rx Instructions: As directed ranolazine 1,000 mg tablet extended release 12 hr 1,000 mg PO BID Qty: 60 2RF isosorbide mononitrate 60 mg tablet extended release 24 hr 60 mg PO DAILY Qty: 90 3RF insulin glargine [Lantus U-100 Insulin] 100 unit/mL solution 90 unit SQ BID Patient Comments: ADMINISTER 50 UNITS UNDER THE SKIN TWICE DAILY FOR 30 DAYS losartan 50 mg tablet 50 mg PO DAILY Patient Comments: TAKE ONE TABLET BY MOUTH DAILY topiramate 25 mg tablet 25 mg PO HS levetiracetam 750 mg tablet 1,500 mg PO BID lorazepam 1 mg tablet 1 mg PO TID rosuvastatin 10 mg tablet 10 mg PO DAILY oxycodone 10 mg tablet 10 mg PO Q4HP Patient Comments: TAKE ONE TABLET BY MOUTH EVERY FOUR HOURS, MAXIMUM OF SIX TABLETS A DAY FOR PAIN metoprolol succinate 100 mg tablet extended release 24 hr 100 mg PO DAILY Changed pregabalin 150 mg capsule 75 mg PO BID 30 Days Qty: 0 0RF Discontinued baclofen 10 mg tablet 10 mg PO Q6HP PRN (Reason: muscle spasms) Problem Reconciliation Problems Reviewed?: Yes Patient Discharge Instructions Patient Instructions: DI for Suicidal Ideation-Adult, DI for Drug Overdose in Adults, Stop Light Pneumonia Print Language: Bulgarian Providers Primary Care Provider: Shamika Roy Admit Provider: Yang Echols Attending Provider: Yang Echols
--- NOTE | 2024-09-24 17:38 | PC.NURSE ---
Addendum entered by Meghana Lynn RN 09/24/24 18:54: Family agreeable to transport pt in the AM by POV. made aware and Bonnie contacted to update that pt should be leaving facility around 9 AM. Original Note: Conflicts and issues w/ transportation of pt from [facility] to [facility]. Family is unable to take pt by POV. Staff have reached out to EMS and dispatch for transportation but they are both unable to take him to the facility. Dorota Gilmore RN contacted [facility] and verified that if pt is discharged in the AM bed would still be available. They stated yes and that they would not it in his chart to expect him in the morning. contacted and made aware. Family updated on POC. Pt verablized that he is feeling anxious about the situation, staff remains @ bedside and speaking w/ pt. made aware and placing order for vistarlil prn. Mother remains at bedside as well.
--- NOTE | 2024-09-24 18:40 | PC.NURSE ---
Report called to Braulio Alejo RN @ this time
--- NOTE | 2024-09-24 18:52 | PC.NURSE ---
Pt off unit to transfer to Medical [facility] Room 206 by wheelchair taken by staff.
[2024-09-24] MEDS: ATORVASTATIN 20MG TABLET 20 MG PO (20:37)
[2024-09-24] MEDS: SODIUM CHLORIDE 0.9% 10ML VIAL 10 ML IV (20:37)
[2024-09-24 20:51] LABS: POC Glucose,Bedside 148 (70-110)
[2024-09-25] VITALS: BP 123/68; PULSE 84; RESP 16; TEMP 37; O2SAT 96
[2024-09-25] MEDS: OXYCODONE 5MG IMMEDIATE RELEASE TABLET 10 MG PO ×3 (00:20→08:50)
[2024-09-25 04:00] VITALS: BMI 29.3
[2024-09-25 04:15] VITALS: BP 140/79; PULSE 85; RESP 18; TEMP 36.7; O2SAT 95
[2024-09-25 05:32] LABS: POC Glucose,Bedside 127 (70-110)
--- NOTE | 2024-09-25 06:05 | PC.NURSE ---
Pt remains on 1:1 observation. pt is alert and oriented x4. Pt c/o extreme back and leg pain and has required pain medication pt was treated per MAY.
[2024-09-25 07:27] LABS: Hematocrit 41.3 % (42.0-52.0); Hemoglobin 13.7 g/dL (14.1-18.0); Immature Granulocytes % 0.4 %; Mean Corpuscular HGB Conc 33.2 g/dL (31.8-35.4); Mean Corpuscular Hemoglobin 29.1 pg (27.0-31.2); Mean Corpuscular Volume 87.7 fl (80-94); Nucleated Red Blood Cells % 0 %; Platelet Count 218 K/mm3 (142-424); Red Blood Count 4.71 M/mm3 (4.60-6.20); Red Cell Distribution Width-SD 40.1 fL; White Blood Count 10.3 K/mm3 (4.8-10.8)
[2024-09-25 07:43] LABS: Alanine Aminotransferase 14 U/L (12-78); Albumin Level 4.0 g/dl (3.5-5.0); Albumin/Globulin Ratio 1.3 (1.1-1.8); Alkaline Phosphatase 60 U/L (38-126); Anion Gap 24.2 mEq/L (5-15); Aspartate Amino Transferase 25 U/L (17-59); Bilirubin,Total 1.0 mg/dl (0.2-1.3); Blood Urea Nitrogen 16 mg/dl (9-20); Calcium 9.3 mg/dl (8.4-10.2); Carbon Dioxide 19 mmol/L (22.0-30.0); Chloride 100 mmol/L (98-107); Creatinine Clearance Estimated 159 mL/min (50-200); Creatinine,Serum 0.70 mg/dl (0.66-1.25); Estimated Glomerular Filt Rate 119 ml/min (>60); GFR (African American) 144 ML/MIN (>60); Globulin 3.0 g/dL (1.3-3.2); Glucose 134 mg/dl (74-100); Magnesium 1.8 mg/dl (1.6-2.3); Potassium 4.2 mmoL/L (3.5-5.1); Sodium 139 mmol/L (136-145); Total Protein,Serum 7.0 g/dl (6.3-8.2)
[2024-09-25 08:14] VITALS: BP 130/70; PULSE 83; RESP 16; TEMP 36.9; O2SAT 98
[2024-09-25] MEDS: IRBESARTAN 75MG TABLET 75 MG PO (08:16)
[2024-09-25] MEDS: ISOSORBIDE MONO 60MG TAB.ER.24H 60 MG PO (08:16)
[2024-09-25] MEDS: CLOPIDOGREL 75MG TAB 75 MG PO (08:16)
[2024-09-25] MEDS: SODIUM CHLORIDE 0.9% 10ML VIAL 8 ML IV (08:17)
[2024-09-25] MEDS: FAMOTIDINE 20MG/2ML VIAL 20 MG IV (08:17)
[2024-09-25] MEDS: METOPROLOL SUCCINATE XL 100MG TABLET 100 MG PO (08:17)
[2024-09-25] MEDS: NICOTINE 21MG/24HR PATCH 21 MG TD (08:24)
[2024-09-25] MEDS: PREGABALIN 25MG CAPSULE 75 MG PO (08:26)
--- NOTE | 2024-09-25 08:54 | EXP.DC.SUM ---
General Admission date:: 09/21/24 HPI HPI HPI: Kingsley Hernandez is a 49-year-old male with a medical history of multiple drug intentional overdoses/suicide attempts (last being 2 weeks ago, transferred to [facility]), major depression, insulin-dependent diabetes, seizure disorder, low back pain requiring multiple surgeries on chronic opiate therapy and work disability, obstructive sleep apnea, CVA, CAD with stent, GERD, and hypertension. Patient states that he has had multiple suicide attempts and psychiatric hospitalizations in the past. Patient reports that in the past he has been admitted to [facility], [facility], [facility], [facility], and [facility]. The psychiatric admissions have been for suicidal ideation, suicide attempt, and alcohol and drug abuse. Patient states that he had been living in [place] with his prior to having several CVAs. Patient states that he was in assisted living and in a correction when his was no longer able to care for him. Patient states that after his CVAs when he was living with his and that started having suicidal ideation because he could not complete the tasks that he has been able to in the past and was unable to care for himself like he had been able to. Patient states that he was admitted to [place] in [place] several times after his CVA for suicidal ideation and suicide attempt. Patient reports that his plamn for suicide has always been overdose. Patient states that approximately 2 years ago his mom moved him down here to [place] and within the last 2 years he has had 3 or 4 suicide attempts by trying to overdose on insulin. Patient states that he was also hospitalized at [facility] and [facility] for alcohol and drug abuse. Mom states that when he was hospitalized for alcohol and drug abuse she had previously taken over caring for patient's medicine because she thought him abusing his Lyrica, oxycodone and Ativan. Mom states that she had his a medicine door and patient had failed it she has been lost to medicine and the loss thoughts and patient had found the carter. Mom now wears a carter for the lock box around her neck so that it is always with her and he does not have access to it. Patient does not have access to his Lyrica, Ativan and oxycodone unless it is a scheduled time for him to get them throughout the day. Patient states that he no longer drinks alcohol and has not had a problem with drinking for about 2 years. The patient currently reports that he has no thoughts of trying to commit suicide and states that he has done trying to . Patient states he was triggered prior to this suicide attempt by his stepfather who wants him to quit smoking and he feels like he has been nagging him to quit smoking because he has diabetes and he recently received 2 stents during a heart cath. Patient reports that he has been trying to cut back on smoking and he currently has not been 1 pack/day of cigarettes. Patient states that he feels like he is a burden to his mom and stepdad and he feels like his stepdad is tired of him being at the house. Patient states that he felt like it would be easier for his mom and stepdad if he was no longer there. Patient also states that he was triggered because his did not want their daughter to come down and visit because of his recent suicide attempt 2 weeks ago and she was afraid that patient would attempt suicide again father daughter was fair. Patient's was trying to take their daughter from seeing her dad like this. Patient states that he now understands her reasoning but was very upset at the time. Patient reports that he would like to go back to [facility] to be in a correction or assisted living so that he can be near his and daughter again. Patient is hopeful that he can find placement in an assisted living facility when he is finished with his inpatient psychiatric care so that he can be near his and daughter. Patient states that he has been on mental health medication in the past feeling that he remembers is bupropion and he was taken off of that after his CVAs because he started having seizures. Mental Status Exam: MOOD: Patient is calm, cooperative, and engaged in the hospital today. ANXIETY: There are no apparent signs of anxiety. APPEARANCE: Patient is normal in appearance with age appropriate dress and grooming and appears to be stated age. APPETITE: No issues with appetite. No significant weight loss or weight gain. ENERGY: Energy is normal. CONCENTRATION: WNL IRRITABILITY: denies AFFECT: Full-range. THOUGHT CONTENT AND PROCESS: Hallucinations and delusions are denied and behavior is generally appropriate. Associations are intact, thinking is basically logical and thought content is appropriate. There are no signs of cognitive difficulty, based on vocabulary and fund of knowledge. SPEECH: Speech is normal in rate, volume, and articulation and language skills are intact. PSYCHOMOTOR: There is no apparent psychomotor retardation noted at this time. ORIENTATION: Memory is intact for recent and remote events and the patient is oriented to time, place, and person. SUICIDAL IDEATIONS: Patient was admitted for suicide attempt, patient denies current suicidal ideations or plans and patient also denies homicidal ideation. HOMICIDAL IDEATIONS: Homicidal or assaultive ideas or intentions are also denied. INSIGHT: Insight appears to be intact. JUDGMENT: Judgment is intact. Exam Data for Last 24 hours Vital signs and Labs for Last 24 Hours: Temp Pulse Resp BP Pulse Ox O2 Del Method O2 Flow Rate 98.4 F 83 16 130/70 98 Room Air 30 09/25/24 08:14 09/25/24 08:14 09/25/24 08:14 09/25/24 08:14 09/25/24 08:14 09/25/24 08:14 09/22/24 15:00 FiO2 09/23/24 12:30 Laboratory Results - last 24 hr 09/24/24 14:27: POC Glucose 157 H 09/24/24 20:35: POC Glucose 148 H 09/25/24 05:14: POC Glucose 127 H 09/25/24 06:51: WBC 10.3, RBC 4.71, Hgb 13.7 L, Hct 41.3 L, MCV 87.7, MCH 29.1, MCHC 33.2, RDW 12.6, Plt Count 218, MPV 11.0 H, Neut % (Auto) 52.8, Lymph % (Auto) 31.6, [place] % (Auto) 10.2 H, Eos % (Auto) 4.0, Baso % (Auto) 1.0, Neut # (Auto) 5.5, Lymph # (Auto) 3.3, [place] # (Auto) 1.1 H, Eos # (Auto) 0.4, Baso # (Auto) 0.1, Sodium 139, Potassium 4.2 D, Chloride 100, Carbon Dioxide 19 L, Anion Gap 24.2 H, BUN 16 D, Creatinine 0.70, Estimated Creat Clear 159, Estimated GFR 119, Est GFR ( Amer) 144, Glucose 134 H, Calcium 9.3, Magnesium 1.8, Total Bilirubin 1.0, AST 25, ALT 14 D, Alkaline Phosphatase 60, Total Protein 7.0, Albumin 4.0 D, Globulin 3.0, Albumin/Globulin Ratio 1.3 I & O for Last 24 hours: Intake & Output 09/22/24 09/23/24 09/24/24 09/25/24 23:59 23:59 23:59 23:59 Intake Total 4485.215 / 4485.215 3177.471 / 3177.471 1825 / 2405 1000 / 1000 Output Total 4622 / 4637 3440 / 3440 2600 / 2600 2100 / 2100 Balance -136.785 / -151.785 -262.529 / -262.529 -775 / -195 -1100 / -1100 Weight 96.661 kg 102.693 kg 101.423 kg 89.947 kg Microbiology Reports for the Last 24 Hours: Microbiology 09/21/24 08:10 Sputum - Endotracheal Tube Aspirate Gram Stain - Final 09/21/24 08:10 Sputum - Endotracheal Tube Aspirate Sputum Culture - Final Klebsiella oxytoca Results Data Completed and Pending Labs on day of discharge: Labs from last 24 hours 09/25/24 09/25/24 09/24/24 06:51 05:14 20:35 WBC 10.3 RBC 4.71 Hgb 13.7 L Hct 41.3 L MCV 87.7 MCH 29.1 MCHC 33.2 RDW 12.6 Plt Count 218 MPV 11.0 H Neut % (Auto) 52.8 Lymph % (Auto) 31.6 [place] % (Auto) 10.2 H Eos % (Auto) 4.0 Baso % (Auto) 1.0 Neut # (Auto) 5.5 Lymph # (Auto) 3.3 [place] # (Auto) 1.1 H Eos # (Auto) 0.4 Baso # (Auto) 0.1 Sodium 139 Potassium 4.2 D Chloride 100 Carbon Dioxide 19 L Anion Gap 24.2 H BUN 16 D Creatinine 0.70 Estimated Creat Clear 159 Estimated GFR 119 Est GFR ( Amer) 144 Glucose 134 H POC Glucose 127 H 148 H Calcium 9.3 Magnesium 1.8 Total Bilirubin 1.0 AST 25 ALT 14 D Alkaline Phosphatase 60 Total Protein 7.0 Albumin 4.0 D Globulin 3.0 Albumin/Globulin Ratio 1.3 09/24/24 14:27 WBC RBC Hgb Hct MCV MCH MCHC RDW Plt Count MPV Neut % (Auto) Lymph % (Auto) [place] % (Auto) Eos % (Auto) Baso % (Auto) Neut # (Auto) Lymph # (Auto) [place] # (Auto) Eos # (Auto) Baso # (Auto) Sodium Potassium Chloride Carbon Dioxide Anion Gap BUN Creatinine Estimated Creat Clear Estimated GFR Est GFR ( Amer) Glucose POC Glucose 157 H Calcium Magnesium Total Bilirubin AST ALT Alkaline Phosphatase Total Protein Albumin Globulin Albumin/Globulin Ratio Preliminary micro results at discharge 09/21/24 13:50 Blood Culture - Preliminary Blood NO GROWTH AFTER 48 HOURS 09/21/24 13:40 Blood Culture - Preliminary Blood NO GROWTH AFTER 48 HOURS DS: Diagnosis Discharge Diagnosis (1) Drug overdose: Status: Acute Code(s): T50.901A - Poisoning by unspecified drugs, medicaments and biological substances, accidental (unintentional), initial encounter (2) Suicide attempt: Status: Acute Code(s): T14.91XA - Suicide attempt, initial encounter (3) Pneumonia: Status: Acute Code(s): J18.9 - Pneumonia, unspecified organism Meds Home Medications and Allergies Home Medications ?Medication ?Instructions ?Recorded ?Confirmed ?Type levetiracetam 750 mg tablet 1,500 mg PO BID Seizures 08/15/22 09/21/24 History lorazepam 1 mg tablet 1 mg PO TID Seizures 08/15/22 09/21/24 History losartan 50 mg tablet 50 mg PO DAILY Hypertension 08/15/22 09/21/24 History rosuvastatin 10 mg tablet 10 mg PO DAILY Cholesterol 08/15/22 09/21/24 History topiramate 25 mg tablet 25 mg PO HS Headache prevention 08/15/22 09/21/24 History insulin glargine 100 unit/mL 90 unit SQ BID 04/14/23 09/21/24 History subcutaneous solution (Lantus U-100 Insulin) clopidogrel 75 mg tablet (Plavix) 75 mg PO DAILY 05/06/23 09/21/24 History fenofibrate nanocrystallized 48 mg 48 mg PO HS 05/06/23 09/21/24 History tablet folic acid 400 mcg tablet 400 mg PO DAILY 05/06/23 09/21/24 History insulin aspart U-100 100 unit/mL 1 sliding scale dose SQ 05/06/23 09/21/24 History subcutaneous solution (Novolog USEASDIRECTD U-100 Insulin aspart) insulin syringe-needle U-100 1 mL #10 ea 05/06/23 09/16/24 History 31 gauge x 5/16 (BD Insulin Syringe Ultra-Fine) pantoprazole 20 mg tablet,delayed 20 mg PO DAILY PRN Heartburn 05/06/23 09/21/24 History release (Protonix) potassium chloride 10 mEq 10 meq PO DAILY 05/06/23 09/21/24 History capsule,extended release trazodone 50 mg tablet 50 mg PO HS 05/06/23 09/16/24 History calcitriol 0.25 mcg capsule 0.25 mcg PO MOWEFR 03/24/24 09/21/24 History empagliflozin 25 mg tablet 25 mg PO DAILY 03/24/24 09/21/24 History (Jardiance) blood-glucose sensor (FreeStyle #1 ea 07/26/24 09/16/24 History Eugenie 3 Sensor device) flash glucose scanning reader #1 ea 07/26/24 09/16/24 History (FreeStyle Eugenie 2 Loleta) metoprolol succinate 100 mg 100 mg PO DAILY 08/02/24 09/21/24 History tablet,extended release 24 hr isosorbide mononitrate 60 mg 60 mg PO DAILY #90 tabs 08/23/24 09/21/24 Rx tablet,extended release 24 hr oxycodone 10 mg tablet 10 mg PO Q4HP Moderate Pain (Scale 08/23/24 09/21/24 History Score 7/10) blood pressure monitor (Blood #1 ea 09/16/24 09/16/24 Rx Pressure Kit) ranolazine 1,000 mg 1,000 mg PO BID #60 tabs 09/16/24 09/21/24 Rx tablet,extended release,12 hr cefdinir 300 mg capsule 300 mg PO BID 3 days #6 caps 09/24/24 Rx pregabalin 150 mg capsule 75 mg (1/2 x 150 mg) PO BID Nerve 09/24/24 09/21/24 Rx Pain 30 days #0 caps New Prescriptions to Start Prescriptions: cefdinir Yang Echols Allergies Allergy/AdvReac Type Severity Reaction Status Date / Time aspirin Allergy Severe Anaphylaxis Verified 09/16/24 10:31 ibuprofen (From Motrin) Allergy Severe Anaphylaxis Verified 09/16/24 10:31 naproxen (From Aleve) Allergy Severe Anaphylaxis Verified 09/16/24 10:31 NSAIDS (Non-Steroidal Allergy Severe Anaphylaxis Verified 09/16/24 10:31 Anti-Inflamma bee venom protein (honey bee) Allergy Anaphylaxis Verified 09/16/24 10:31 metoclopramide (From Reglan) AdvReac Intermediate Agitated Verified 09/16/24 10:31 midazolam (From Versed) AdvReac Verified 09/16/24 10:31 Discharge Plan Disposition Patient Disposition: Home, Self-Care Condition: Fair Discharge Order Discharge Orders: Discharge Order (Routine); Ordered 09/25/24 Ordered By: Yang Echols Follow up Plan Follow up with: Margaret Wynn MD [Physician, Pulmonology] - 1 month Prescriptions/Medication Reconciliation: New cefdinir 300 mg capsule 300 mg PO BID 3 Days Qty: 6 0RF Continued potassium chloride 10 mEq capsule, extended release 10 meq PO DAILY trazodone 50 mg tablet 50 mg PO HS Patient Comments: TAKE 1 TABLET BY MOUTH EVERY NIGHT AT BEDTIME clopidogrel [Plavix] 75 mg tablet 75 mg PO DAILY folic acid 400 mcg tablet 400 mg PO DAILY Patient Comments: TAKE 1 TABLET BY MOUTH ONCE DAILY pantoprazole [Protonix] 20 mg tablet,delayed release (DR/EC) 20 mg PO DAILY PRN (Reason: Heartburn) insulin aspart U-100 [Novolog U-100 Insulin aspart] 100 unit/mL solution 1 sliding scale dose SQ USEASDIRECTD (DME) insulin syringe-needle U-100 [BD Insulin Syringe Ultra-Fine] 1 mL 31 gauge x 5/16 syringe See Rx Instructions .ROUTE .MEDSUPPLY Qty: 10 Patient Comments: USE DIRECTED SUBCUTANEOUS FOUR TIMES DAILY Rx Instructions: As directed fenofibrate nanocrystallized 48 mg tablet 48 mg PO HS calcitriol 0.25 mcg capsule 0.25 mcg PO MOWEFR Patient Comments: TAKE 1 CAPSULE BY MOUTH 3 TIMES A WEEK Rx Instructions: Patient takes every other day in a week. Jardiance 25 mg tablet 25 mg PO DAILY (DME) FreeStyle Eugenie 3 Sensor Device See Rx Instructions .ROUTE .MEDSUPPLY Qty: 1 Patient Comments: USE DIRECTED EVERY 15 DAYS Rx Instructions: As directed (DME) FreeStyle Eugenie 2 Loleta Misc See Rx Instructions .ROUTE .MEDSUPPLY Qty: 1 Patient Comments: USE DIRECTED Rx Instructions: As directed (DME) blood pressure monitor [Blood Pressure Kit] Kit See Rx Instructions .Route Qty: 1 0RF Rx Instructions: As directed ranolazine 1,000 mg tablet extended release 12 hr 1,000 mg PO BID Qty: 60 2RF isosorbide mononitrate 60 mg tablet extended release 24 hr 60 mg PO DAILY Qty: 90 3RF insulin glargine [Lantus U-100 Insulin] 100 unit/mL solution 90 unit SQ BID Patient Comments: ADMINISTER 50 UNITS UNDER THE SKIN TWICE DAILY FOR 30 DAYS losartan 50 mg tablet 50 mg PO DAILY Patient Comments: TAKE ONE TABLET BY MOUTH DAILY topiramate 25 mg tablet 25 mg PO HS levetiracetam 750 mg tablet 1,500 mg PO BID lorazepam 1 mg tablet 1 mg PO TID rosuvastatin 10 mg tablet 10 mg PO DAILY oxycodone 10 mg tablet 10 mg PO Q4HP Patient Comments: TAKE ONE TABLET BY MOUTH EVERY FOUR HOURS, MAXIMUM OF SIX TABLETS A DAY FOR PAIN metoprolol succinate 100 mg tablet extended release 24 hr 100 mg PO DAILY Changed pregabalin 150 mg capsule 75 mg PO BID 30 Days Qty: 0 0RF Discontinued baclofen 10 mg tablet 10 mg PO Q6HP PRN (Reason: muscle spasms) Problem Reconciliation Problems Reviewed?: Yes Patient Discharge Instructions Patient Instructions: Ventilator-Associated Pneumonia, DI for Suicidal Ideation-Adult, DI for Drug Overdose in Adults, Catheter-Associated Urinary Tract Infection, Stop Light Pneumonia Print Language: Latvian Providers Primary Care Provider: Shamika Roy Admit Provider: Yang Echols Attending Provider: Yang Echols
[2024-09-25 10:27] LABS: Thyroid Stimulating Hormone 1.47 uIU/mL (0.465-4.68)
[2024-09-25 10:48] LABS: Vitamin B12 > 1000 pg/mL (239-931)
[2024-09-25 11:09] LABS: Folate > 20.00 ng/mL
== END 2024-09-25 10:06 | disposition home or self-care (01) | DRG 917 ==
LOC: ER 08:03 → ICU 10:11 → 2ND 09-24 18:51
PROVIDERS: Nurse Practitioner Family; Admitting Provider Student in an Organized Health Care Education/Training Program; Emergency Provider Student in an Organized Health Care Education/Training Program; PCP Nurse Practitioner; Visit Provider Student in an Organized Health Care Education/Training Program
DX: T42.8X2A Poisoning by antiparkinsonism drugs and other central muscle-tone depressants, intentional self-harm, initial encounter (principal); G92.8 Other toxic encephalopathy; J69.0 Pneumonitis due to inhalation of food and vomit; J96.01 Acute respiratory failure with hypoxia; E87.6 Hypokalemia; E11.65 Type 2 diabetes mellitus with hyperglycemia; E11.649 Type 2 diabetes mellitus with hypoglycemia without coma; I95.9 Hypotension, unspecified; T38.3X2A Poisoning by insulin and oral hypoglycemic [antidiabetic] drugs, intentional self-harm, initial encounter; B96.1 Klebsiella pneumoniae [K. pneumoniae] as the cause of diseases classified elsewhere; M54.50 Low back pain, unspecified; G89.29 Other chronic pain; E11.42 Type 2 diabetes mellitus with diabetic polyneuropathy; F32.9 Major depressive disorder, single episode, unspecified; K21.9 Gastro-esophageal reflux disease without esophagitis; I10 Essential (primary) hypertension; G47.33 Obstructive sleep apnea (adult) (pediatric); G40.909 Epilepsy, unspecified, not intractable, without status epilepticus; I25.10 Atherosclerotic heart disease of native coronary artery without angina pectoris; Z95.5 Presence of coronary angioplasty implant and graft; Z86.73 Personal history of transient ischemic attack (TIA), and cerebral infarction without residual deficits; Z91.51 Personal history of suicidal behavior; Z91.148 Patient's other noncompliance with medication regimen for other reason; Z91.199 Patient's noncompliance with other medical treatment and regimen due to unspecified reason; Y92.009 Unspecified place in unspecified non-institutional (private) residence as the place of occurrence of the external cause; Z87.891 Personal history of nicotine dependence; Z79.02 Long term (current) use of antithrombotics/antiplatelets; Z79.4 Long term (current) use of insulin; Z79.899 Other long term (current) drug therapy; Z88.8 Allergy status to other drugs, medicaments and biological substances; Z88.6 Allergy status to analgesic agent; Z91.030 Bee allergy status
CPT/HCPCS: 36415; 51702; 70450; 71045; 80053; 80061; 80307; 80320; 80329; 81001; 82550; 82607; 82746; 82803; 82962; 83605; 83735; 84443; 84484; 85007; 85025; 87040; 87070; 87077; 87081; 87186; 87205; 87633; 92610; 93005; 94003; 94640; 95822; 97162; 97166; J0330; J0360; J0456; J0696; J1650; J1953; J2060; J2704; J3010; J3475; J3480; J7050; J7120; J7121

== ENCOUNTER 2024-11-14 20:19 | Observation (INO) | payer MEDICARE, MEDICAID, SELFPAY ==
--- OUTSIDE RECORDS SUMMARY | 2011-02-15 15:00 | XMS_ITS | Encounter Summary ---
Author Organization [facility] Address [address], [address] [place] [address] Care Team Providers Care Pipeline Engineer Name Role Phone Mary Ann Henson MD Primary Care Provider Pato humphrey Encounter Details Date Type Department Care Team (Late st Contact Info) Description 02/15/2011 2:00 PM EST Hospital Encounter [facility] [address] [place] [address] Social History Tobacco Use Types Packs/Day Years [...] documented as of this encounter Care Teams Pipeline Engineer Relationship Specialty Start Date End Date Mary Ann Henson MD PCP - General Family Medicine 11/26/10 03/13/13 documented as of this encounter
--- OUTSIDE RECORDS SUMMARY | 2011-02-18 15:00 | XMS_ITS | Encounter Summary ---
Author Organization [facility] Address [address], [address] [place] [address] Care Team Providers Care Liner Worker Name Role Phone Mary Ann Henson MD Primary Care Provider Pato humphrey Encounter Details Date Type Department Care Team (Late st Contact Info) Description 02/18/2011 2:00 PM EST Hospital Encounter [facility] [address] [place] [address] Social History Tobacco Use Types Packs/Day Years [...] Name: Kingsley Braulio Hernandez : 1975 Date: 02/18/2011 Cancels to [...] documented as of this encounter Care Teams Liner Worker Relationship Specialty Start Date End Date Mary Ann Henson MD PCP - General Family Medicine 11/26/10 03/13/13 documented as of this encounter
--- OUTSIDE RECORDS SUMMARY | 2011-02-22 15:00 | XMS_ITS | Encounter Summary ---
Author Organization [facility] Address [address], [address] [place] [address] Care Team Providers Care Director Of Rehabilitation And Wellness Name Role Phone Mary Ann Henson MD Primary Care Provider Pato humphrey Encounter Details Date Type Department Care Team (Late st Contact Info) Description 02/22/2011 2:00 PM EST Hospital Encounter [facility] [address] [place] [address] Social History Tobacco Use Types Packs/Day Years [...] as of this encounter Progress Notes * Duncan, Kari, PT - 02/22/2011 3:01 PM EST Images from the original note were not included. Physical Therapy Cancellation/No-show Note Patient Name: Kingsley Hernandez : 1975 Date: 02/22/2011 Cancels to [...] documented as of this encounter Care Teams Director Of Rehabilitation And Wellness Relationship Specialty Start Date End Date Mary Ann Henson MD PCP - General Family Medicine 11/26/10 03/13/13 documented as of this encounter
--- OUTSIDE RECORDS SUMMARY | 2011-02-25 15:00 | XMS_ITS | Encounter Summary ---
Author Organization [facility] Address [address], [address] [place] [address] Care Team Providers Care Signal Technician Name Role Phone Mary Ann Henson MD Primary Care Provider Pato humphrey Encounter Details Date Type Department Care Team (Late st Contact Info) Description 02/25/2011 2:00 PM EST Hospital Encounter [facility] [address] [place] [address] Social History Tobacco Use Types Packs/Day Years [...] documented as of this encounter Care Teams Signal Technician Relationship Specialty Start Date End Date Mary Ann Henson MD PCP - General Family Medicine 11/26/10 03/13/13 documented as of this encounter
--- OUTSIDE RECORDS SUMMARY | 2011-03-01 15:00 | XMS_ITS | Encounter Summary ---
Author Organization [facility] Address [address], [address] [place] [address] Care Team Providers Care Teaching Specialists Name Role Phone Mary Ann Henson MD Primary Care Provider Pato humphrey Encounter Details Date Type Department Care Team (Late st Contact Info) Description 03/01/2011 2:00 PM EST Hospital Encounter [facility] [address] [place] [address] Social History Tobacco Use Types Packs/Day Years [...] documented as of this encounter Care Teams Teaching Specialists Relationship Specialty Start Date End Date Mary Ann Henson MD PCP - General Family Medicine 11/26/10 03/13/13 documented as of this encounter
[2024-11-14] VITALS (9 sets, daily range): BP systolic 82–127; BP diastolic 53–84; PULSE 62–80; RESP 12–21; TEMP 37.1–37.2; O2SAT 97–99; BMI 26.1; BMI 27.6
--- NOTE | 2024-11-14 20:22 | HMH.EDGENADL ---
Discharge Plan Disposition Patient Disposition: Admitted Condition: Good Clinical Impressions Clinical Impression: DARSHAN (acute kidney injury), Orthostatic dizziness Discharge ED Provider: Rose Marie Venegas Adult HPI General Chief complaint: Dizziness Stated complaint: Low B/P 81/42 Time Seen by Provider: 11/14/24 20:22 History of Present Illness HPI narrative: Patient is a 49-year-old male with a past medical history of diabetes, high blood pressure who presented to the emergency department with lightheadedness and low blood pressure. Patient states that he took his blood pressure at home and it was low on multiple readings including systolics in the 80s and 70s. Patient feels that if he bends over he is going to pass out. Patient has not had any syncope. Patient has not had any new or worsening chest pain. Patient has not had any shortness of breath. Patient reports that he has not had had any medication changes. Patient states that he is on 3 antihypertensives, he took them all this morning. Patient has had a close follow-up with cardiology and they are currently monitoring his blood pressure to see if he needs changes. Patient denies any abdominal pain nausea vomiting diarrhea. Patient denies any upper respiratory symptoms. Related Data Home Medications ?Medication ?Instructions ?Recorded ?Confirmed levetiracetam 750 mg tablet 1,500 mg PO BID Seizures 08/15/22 11/14/24 lorazepam 1 mg tablet 1 mg PO TID Seizures 08/15/22 11/14/24 losartan 50 mg tablet 50 mg PO DAILY Hypertension 08/15/22 11/14/24 rosuvastatin 10 mg tablet 10 mg PO DAILY Cholesterol 08/15/22 11/14/24 topiramate 25 mg tablet 25 mg PO HS Headache prevention 08/15/22 11/14/24 insulin glargine 100 unit/mL 90 unit SQ BID 04/14/23 11/14/24 subcutaneous solution (Lantus U-100 Insulin) clopidogrel 75 mg tablet (Plavix) 75 mg PO DAILY 05/06/23 11/14/24 fenofibrate nanocrystallized 48 mg 48 mg PO HS 05/06/23 11/14/24 tablet folic acid 400 mcg tablet 400 mg PO DAILY 05/06/23 11/14/24 insulin aspart U-100 100 unit/mL 1 sliding scale dose SQ 05/06/23 11/14/24 subcutaneous solution (Novolog USEASDIRECTD U-100 Insulin aspart) insulin syringe-needle U-100 1 mL #10 ea 05/06/23 11/14/24 31 gauge x 5/16 (BD Insulin Syringe Ultra-Fine) pantoprazole 20 mg tablet,delayed 20 mg PO DAILY PRN Heartburn 05/06/23 11/14/24 release (Protonix) potassium chloride 10 mEq 10 meq PO DAILY 05/06/23 11/14/24 capsule,extended release trazodone 50 mg tablet 50 mg PO HS PRN Sleep 05/06/23 11/14/24 calcitriol 0.25 mcg capsule 0.25 mcg PO MOWEFR 03/24/24 11/14/24 empagliflozin 25 mg tablet 25 mg PO DAILY 03/24/24 11/14/24 (Jardiance) blood-glucose sensor (FreeStyle #1 ea 07/26/24 11/14/24 Eugenie 3 Sensor device) flash glucose scanning reader #1 ea 07/26/24 11/14/24 (FreeStyle Eugenie 2 [place]) oxycodone 10 mg tablet 10 mg PO Q4HP Moderate Pain (Scale 08/23/24 11/14/24 Score 7/10) pregabalin 200 mg capsule 200 mg PO TID 11/01/24 11/14/24 baclofen 10 mg tablet 10 mg PO Q6 PRN Pain (Scale Score 11/14/24 11/14/24 4-6) duloxetine 30 mg capsule,delayed 30 mg PO DAILY 11/14/24 11/14/24 release metoprolol succinate 100 mg 100 mg PO DAILY 11/14/24 11/14/24 tablet,extended release 24 hr Previous Rx's ?Medication ?Instructions ?Recorded isosorbide mononitrate 60 mg 60 mg PO DAILY #90 tabs 08/23/24 tablet,extended release 24 hr blood pressure monitor (Blood #1 ea 09/16/24 Pressure Kit) ranolazine 1,000 mg 1,000 mg PO BID #60 tabs 09/16/24 tablet,extended release,12 hr Allergies Allergy/AdvReac Type Severity Reaction Status Date / Time aspirin Allergy Severe Anaphylaxis Verified 11/01/24 10:18 ibuprofen (From Motrin) Allergy Severe Anaphylaxis Verified 11/01/24 10:18 naproxen (From Aleve) Allergy Severe Anaphylaxis Verified 11/01/24 10:18 NSAIDS (Non-Steroidal Allergy Severe Anaphylaxis Verified 11/01/24 10:18 Anti-Inflamma bee venom protein (honey bee) Allergy Anaphylaxis Verified 11/01/24 10:18 metoclopramide (From Reglan) AdvReac Intermediate Agitated Verified 11/01/24 10:18 midazolam (From Versed) AdvReac Verified 11/01/24 10:18 PFSH PFS Disclaimer: The information contained in this section may have been updated after the patient was seen, as this information can be updated by other users. Medical History Encounter for screening for malignant neoplasm of lung Dyspnea on exertion Smoking greater than 30 pack years Pneumonia On mechanically assisted ventilation Drug overdose Depression Anxiety SOB (shortness of breath) Chest pain Abnormal findings on diagnostic imaging of heart and coronary circulation Abnormal nuclear cardiac imaging test History of tonsillitis Diabetes CVA (cerebral vascular accident) Skin induration Deviated septum Right maxillary sinus opacification Headache Chronic sinusitis Right sided facial pain Pain due to onychomycosis of toenail Neuropathy involving both lower extremities Bilateral foot pain Nail fungus Surgical History History of back surgery History of colon resection History of appendectomy History of laparotomy Family History Other Family history of diabetes mellitus Social History (Updated 11/14/24 @ 22:58 by Kellen Martin RN) Smoking Status: Current every day smoker tobacco type: cigarettes packs per day: 1 alcohol intake: never substance use type: denies use current occupational status: retired Travel in the last 8 weeks?: None caffeine: No Have you lived/traveled outside US in past 30 days?: No Contact w/someone who lives/traveled outside US past 30 days?: No Exposure to someone with infectious disease in past 14 days?: No Do you have a fever (greater than 100.4 F or 38 C)?: No Have you tested positive for COVID-19?: No Exposed to someone with COVID-19 in past 14 days?: No Do you have a sore throat?: No Do you have a cough?: No Do you have any weakness?: No Are you experiencing any nausea/vomitting?: No Do you have any diarrhea?: No Are you experiencing any unusual bleeding?: No Do you have any muscle aches/pain?: No Do you have any abdominal pain?: No Are you experiencing loss of taste or smell?: No Other Medical History Have you received the Flu Vaccine for this season: No Have you received the Pneumonia Vaccine: No ROS Obtained: Yes All systems reviewed & no additional complaints except as documented and Yes Systems reviewed as appropriate & no additional complaints except as documented Physical Exam General General appearance: alert and in no apparent distress Head Head exam: atraumatic, normocephalic and normal inspection Eye Eye exam: Present normal appearance, PERRL and EOMI; Absent scleral icterus ENT ENT exam: Present normal exam and normal external ear exam Neck Neck exam: Present normal inspection and full ROM Chest Chest inspection: Present normal inspection and symmetric chest wall rise Respiratory Respiratory exam: Present normal lung sounds bilaterally; Absent respiratory distress or wheezes Cardiovascular Cardiovascular exam: Present regular rate, normal rhythm and normal heart sounds Abdominal Exam Abdominal exam: Present soft and distention; Absent tenderness, guarding or rebound Extremities Exam Extremities exam: Present normal inspection and full ROM Back Exam Back exam: Present normal inspection and full ROM Neurological Exam Neurological exam: Present alert and oriented X3 Psychiatric Psychiatric exam: Present normal affect and normal mood Skin Skin exam: Present warm and dry Medical Decision Making Medical Records Screening: Per USPSTF and CDC recommendations, given the prevalence of disease in our region, it is our hospital?s policy to screen for HIV and viral Hepatitis for all patients aged 18 and over and those with ongoing risk factors. Len Inquiry Pt receiving controlled substance: No Vital Signs: 11/14/24 20:27 11/14/24 21:18 11/14/24 21:20 Temperature 98.9 F Temperature Source Oral Pulse Rate 66 Pulse Rate [Orthostatic Lying Left] 66 Pulse Rate [Orthostatic Sitting Left] 70 Pulse Rate [Orthostatic Standing] 78 Pulse Rate [Radial] 80 Respiratory Rate 14 21 Blood Pressure 112/58 L Blood Pressure [Orthostatic Lying Right Arm] 127/69 Blood Pressure [Orthostatic Sitting Right Arm] 107/65 L Blood Pressure [Orthostatic Standing] 82/53 L Blood Pressure [Right Arm] 104/83 L Blood Pressure Mean [Right Arm] 90 Blood Pressure Position Blood Pressure Position [Right Arm] Sitting 02 Sat by Pulse Oximetry 97 98 Oxygen Delivery Method Room Air 11/14/24 21:40 11/14/24 21:50 11/14/24 22:00 Temperature Temperature Source Pulse Rate 64 65 62 Pulse Rate [Orthostatic Lying Left] Pulse Rate [Orthostatic Sitting Left] Pulse Rate [Orthostatic Standing] Pulse Rate [Radial] Respiratory Rate 12 16 15 Blood Pressure 110/69 125/73 116/71 Blood Pressure [Orthostatic Lying Right Arm] Blood Pressure [Orthostatic Sitting Right Arm] Blood Pressure [Orthostatic Standing] Blood Pressure [Right Arm] Blood Pressure Mean [Right Arm] Blood Pressure Position Blood Pressure Position [Right Arm] 02 Sat by Pulse Oximetry 98 99 98 Oxygen Delivery Method 11/14/24 22:10 11/14/24 22:30 Temperature 98.9 F Temperature Source Oral Pulse Rate 67 64 Pulse Rate [Orthostatic Lying Left] Pulse Rate [Orthostatic Sitting Left] Pulse Rate [Orthostatic Standing] Pulse Rate [Radial] Respiratory Rate 12 16 Blood Pressure 125/84 115/74 Blood Pressure [Orthostatic Lying Right Arm] Blood Pressure [Orthostatic Sitting Right Arm] Blood Pressure [Orthostatic Standing] Blood Pressure [Right Arm] Blood Pressure Mean [Right Arm] Blood Pressure Position Sitting Blood Pressure Position [Right Arm] 02 Sat by Pulse Oximetry 99 Oxygen Delivery Method Room Air Lab Data Lab results reviewed: Yes I reviewed the patient's lab results. Lab Results 11/14/24 20:20: WBC 11.3 H, RBC 5.15, Hgb 15.3, Hct 45.4, MCV 88.2, MCH 29.7, MCHC 33.7, RDW 13.4, Plt Count 203, MPV 11.0 H, Neut % (Auto) 51.7, Lymph % (Auto) 34.5, Divide % (Auto) 9.2, Eos % (Auto) 3.5, Baso % (Auto) 0.7, Neut # (Auto) 5.8, Lymph # (Auto) 3.9, Divide # (Auto) 1.0, Eos # (Auto) 0.4, Baso # (Auto) 0.1, Sodium 134 L, Potassium 4.0, Chloride 100, Carbon Dioxide 24, Anion Gap 14.0, BUN 15, Creatinine 1.40 H, Estimated Creat Clear 79, Estimated GFR 53 L, Est GFR ( Amer) 65, Glucose 483 H*, Calcium 9.4, Total Bilirubin 0.8, AST 24, ALT 14, Alkaline Phosphatase 58, Troponin I < 0.01, Total Protein 7.9, Albumin 4.6, Globulin 3.3 H, Albumin/Globulin Ratio 1.4, Salicylates < 1.0 L, Acetaminophen < 10 L 11/14/24 20:31: POC Glucose 477 H* 11/14/24 20:48: VBG pH 7.21 L, VBG pCO2 61.4 H, VBG pO2 33.2, VBG HCO3 24.1, VBG Total CO2 26.0, VBG O2 Saturation 63.2, VBG Base Excess -3.7 L, VBG Lactic Acid 4.1 H 11/14/24 21:27: Urine Color Yellow, Urine Appearance Clear, Urine pH 6.0, Ur Specific [place] 1.010, Urine Protein Negative, Urine Glucose (UA) 3+, Urine Ketones Negative, Urine Blood Negative, Urine Nitrate Negative, Urine Bilirubin Negative, Urine Urobilinogen 0.2, Ur Leukocyte Esterase Negative, Urine RBC None, Urine WBC Occasional, Ur Squamous Epith Cells None, Urine Bacteria None 11/14/24 20:20 11/14/24 20:20 Orders (Tests/Meds): ED MEDICATIONS Generic Name Dose Route Start Last Admin Trade Name Freq PRN Reason Stop Dose Admin Acetaminophen 650 mg 11/14/24 22:19 11/14/24 23:18 Acetaminophen 325mg Tab PO 12/14/24 22:18 650 mg Q4HP PRN Administration Fever or Mild Pain (1-3) Docusate Sodium 100 mg 11/15/24 09:00 Docusate Sodium 100 Mg Capsule PO 12/15/24 08:59 DAILY PACO Enoxaparin Sodium 40 mg 11/15/24 09:00 Enoxaparin 40mg/0.4ml Syringe SUBCUT 12/15/24 08:59 DAILY PACO Hydromorphone HCl 1 mg 11/14/24 22:19 Hydromorphone 2mg/Ml Syringe IV 12/14/24 22:18 Q4HP PRN Severe Pain (7-10) Sodium Chloride 1,000 mls @ 125 mls/hr 11/14/24 22:30 11/14/24 23:03 Sod Chlor 0.9% 1000ml Bag IV 12/14/24 22:29 125 mls/hr .Q8H PACO Administration Insulin Human Lispro 0 unit 11/15/24 06:00 Humalog 100 Units/Ml 10ml Vial ([facility]) SUBCUT 12/15/24 05:59 [facility] Protocol Levetiracetam 1,500 mg 11/14/24 23:03 11/14/24 23:18 Levetiracetam 500 Mg Tablet PO 11/14/24 23:04 1,500 mg ONCE ONE Administration Lorazepam 1 mg 11/14/24 22:51 11/14/24 23:16 Lorazepam 1mg Tablet PO 11/14/24 22:52 1 mg HSP ONE Administration Ondansetron HCl 4 mg 11/14/24 22:19 Ondansetron 4mg/2ml Vial IV 12/14/24 22:18 Q8HP PRN Nausea Oxycodone HCl 10 mg 11/14/24 22:53 11/14/24 23:17 Oxycodone 10mg Extended Release Tab.Er.12h PO 11/14/24 22:54 10 mg ONCE ONE Administration Oxycodone HCl 10 mg 11/14/24 23:27 Oxycodone 5mg Immediate Release Tablet PO 12/14/24 23:26 Q4HP PRN Severe Pain (7-10) Pantoprazole Sodium 40 mg 11/15/24 21:00 Pantoprazole 40mg Tablet PO 12/15/24 20:59 [facility] Pregabalin 200 mg 11/14/24 23:05 11/14/24 23:18 Pregabalin 100mg Capsule PO 11/14/24 23:06 200 mg ONCE ONE Administration Ranolazine 1,000 mg 11/14/24 22:52 11/14/24 23:16 Ranolazine 500mg Er Tablet PO 11/14/24 22:53 1,000 mg ONCE ONE Administration Sodium Chloride 10 ml 11/14/24 22:19 Sodium Chloride 0.9% 10ml Flush Syringe IV 12/14/24 22:18 NEEDED PRN Maintain IV Site Topiramate 50 mg 11/14/24 23:01 11/14/24 23:17 Topiramate 25mg Tablet PO 11/14/24 23:02 50 mg ONCE ONE Administration Trazodone HCl 50 mg 11/14/24 22:51 11/14/24 23:16 Trazodone 50mg Tablet PO 11/14/24 22:52 50 mg HSP ONE Administration Discontinued Medications Generic Name Dose Route Start Last Admin Trade Name Jed PRN Reason Stop Dose Admin Lactated Ringer's 1,000 mls @ 999 mls/hr 11/14/24 20:48 11/14/24 22:11 Lactated Ringer's 1000 Ml Bag IV 11/14/24 21:48 Infused .Q1H1M ONE Infusion ORDERS Category Date Time Status Cardiology Consult [Consult to Cardiology] [CONS] Cons 11/14/24 22:19 Active Routine Consult to Case Management [CONS] Routine Cons 11/14/24 22:19 Active CXR --portable [XR chest portable] Stat Exams 11/14/24 21:42 Completed Acetaminophen Stat Lab 11/14/24 20:20 Completed CBC w/Auto Diff [Complete Blood Count Auto Diff] Stat Lab 11/14/24 20:20 Completed CMP [Comprehensive Metabolic Panel] Stat Lab 11/14/24 20:20 Completed Complete Blood Count Auto Diff AMLAB Lab 11/15/24 06:00 Ordered Comprehensive Metabolic Panel AMLAB Lab 11/15/24 06:00 Ordered Magnesium AMLAB Lab 11/15/24 06:00 Ordered POC Glucose,Bedside Routine Lab 11/14/24 20:31 Completed Salicylate Stat Lab 11/14/24 20:20 Completed Trop I [Troponin I] Stat Lab 11/14/24 20:20 Completed Troponin I Q3H Lab 11/14/24 23:49 Ordered Troponin I Q3H Lab 11/15/24 02:49 Ordered UA [Urinalysis and Microscopic] Stat Lab 11/14/24 21:27 Completed Urine Culture Stat Micro 11/14/24 21:27 Received VBG [Venous Blood Gas] Stat RT 11/14/24 20:48 Completed Medical Decision Narrative: Patient is a 49-year-old male with a past medical history of diabetes, high blood pressure who presented to the emergency department with lightheadedness and low blood pressure. On arrival, patient was hemodynamically stable with unremarkable vital signs. Differential includes but not limited to: Presyncope, orthostatic syncope, vasovagal syncope, dehydration, uncontrolled diabetes, urinary tract infection, pneumonia, amongst others. Patient's labs were reviewed and interpreted by myself: CBC showed no leukocytosis, hemoglobin was stable. VBG showed mild acidosis of 7.21. Mildly hyper Neck at 61. Elevated lactate at 4.1. Patient's CMP showed an elevated creatinine at 1.4 with a baseline of 0.7. Patient had a glucose of 43. UA showed no evidence of infection. Tylenol and aspirin level normal. Initial troponin less than 0.01. EKG was reviewed and interpreted by myself and showed normal sinus rhythm without acute ST or T wave changes concerning for ischemia Patient was given 1 L of IV fluids in the emergency department. Patient's orthostatics were done and patient had significant blood pressure changes suggesting positive orthostatics. At this time given patient's significant DARSHAN, orthostatic presyncope and likely needing medication changes, I discussed the case with hospital medicine who ultimately admitted the patient to their service. Critical Care Critical Care Time Critical Care Time: No
--- NOTE | 2024-11-14 20:33 | ECG_ITS ---
APPROVED REPORT Exam: Resting ECG HR:70 bpm ECG Measurements Heart Rate 70 AXES AZ 191 P 13 QRSd 106 QRS 35 QT 382 T 38 QTc 403 Conclusion Normal sinus rhythm at [address] or T wave changes concerning for ischemia Electronically signed by : Rose Marie Venegas, 11/15/2024 00:17:14
--- NOTE | 2024-11-14 20:33 | PC.NURSE ---
BG 477. Pt reports during triage I was eating chocolate and drinking shots of coffee to try and get my blood pressure up .
--- OUTSIDE RECORDS SUMMARY | 2024-11-14 20:35 | XMS_ITS | Encounter Summary ---
Author Organization Healthcare Address [address] [place] [address] Care Team Providers Care Etl Informatica Developer Name Role Phone Shamika Roy APRN Primary Care Provider [phone] Encounter Details Date Type Department Care Team (Late st Contact Info) Description 12/03/2023 Orders Only External Location [address] [place] [address] Mikey Hrenandez MD [address] [place], [place] [id number] Social History Tobacco Use Types Packs/Day Years [...] place to sleep or slept in a senior care (including now)? No 09/08/2023 Utilities Answer Date [...] documented as of this encounter Care Teams Etl Informatica Developer Relationship Specialty Start Date End Date Shamika Roy APRN [address] [place] [address] PCP - General 09/08/23 documented as of this encounter
--- OUTSIDE RECORDS SUMMARY | 2024-11-14 20:35 | XMS_ITS | Referral Summary ---
Author Organization [facility] Address [address] [place] [address] Care Team Providers Care Solution Sales Senior Executive Name Role Phone Pcp, None MD Primary Care Provider [phone] Allergies Active Allergy Reactions Criticality Noted Date [...] by mouth daily. 7 tablet 8 Active Yclhogfehm-OI-V angela Polysacch (ALCORTIN A) 1-2-1 % GEL Apply topically daily. 48 g 5 8 Active atorvastatin (LIPITOR) 80 MG TABS Take 1 tablet by mouth daily. 90 tablet 1 9 Active vitamin D-2 (ERGOCALCIFEROL ) 49389 UNIT CAPS Take 1 capsule by mouth [...] of Treatment Not on file Care Teams Solution Sales Senior Executive Relationship Specialty Start Date End Date Pcp, Trice, PCP - General Internal Medicine 07/14/18
--- OUTSIDE RECORDS SUMMARY | 2024-11-14 20:35 | XMS_ITS | Clinical Summary ---
Author Organization [facility] Address [facility] [place] [address] Care Team Providers Care Mend Worker Name Role Phone Pcp, None MD Primary Care Provider [phone] Allergies Active Allergy Reactions Criticality Noted Date [...] by mouth daily. 7 tablet 8 Active Rvrsbsxwbn-VL-S angela Polysacch (ALCORTIN A) 1-2-1 % GEL Apply topically daily. 48 g 5 8 Active atorvastatin (LIPITOR) 80 MG TABS Take 1 tablet by mouth daily. 90 tablet 1 9 Active vitamin D-2 (ERGOCALCIFEROL ) 20804 UNIT CAPS Take 1 capsule by mouth [...] 01/04/2018, 12/19/2009 Shingrix (#1) 09/19/2023 Influenza Vaccine (#1) 2024 4, 12/22/2012 RSV Vaccine (60+ or ) (1 [...] age to complete this topic Care Teams Mend Worker Relationship Specialty Start Date End Date Pcp, MD Trice PCP - General Internal Medicine 07/14/18
--- OUTSIDE RECORDS SUMMARY | 2024-11-14 20:35 | XMS_ITS | Encounter Summary ---
Author Organization Healthcare Address [address] [place] [address] Care Team Providers Care Factory Worker Name Role Phone Shamika Roy APRN Primary Care Provider [phone] Encounter Details Date Type Department Care Team (Late st Contact Info) Description 12/03/2023 Orders Only External Location [address] [place] [address] Mikey Hernandez MD [address] [place], [place] [id number] Social History Tobacco Use Types Packs/Day Years [...] place to sleep or slept in a long term (including now)? No 09/08/2023 Utilities Answer Date [...] documented as of this encounter Care Teams Factory Worker Relationship Specialty Start Date End Date Shamika Roy APRN [address] [place] [address] PCP - General 09/08/23 documented as of this encounter
--- OUTSIDE RECORDS SUMMARY | 2024-11-14 20:36 | XMS_ITS | Encounter Summary ---
Author Organization [facility] Address [address], [address] [place] [address] Care Team Providers Care Archery Equipment Repairer Name Role Phone Carli Samayoa APRN, CNP Primary Care Provider Reason for Visit * Reason Comments Medication Refill Encounter Details Date Type Department Care Team (Late st Contact Info) Description 07/25/2018 Refill [facility] [address] [place] [address] Linda Crowley MD [address] [place] [address], [place] [address] Medication Refill Social History Tobacco Use Types [...] documented as of this encounter Care Teams Archery Equipment Repairer Relationship Specialty Start Date End Date Carli Samayoa APRN - CNP [address] [address] PCP - General Nurse Practitioner 04/16/20 documented as of this encounter
--- OUTSIDE RECORDS SUMMARY | 2024-11-14 20:36 | XMS_ITS | Encounter Summary ---
Author Organization Healthcare Address [address] [place] [address] Care Team Providers Care Building Construction Teacher Name Role Phone Shamika Roy APRN Primary Care Provider [phone] Encounter Details Date Type Department Care Team (Late st Contact Info) Description 05/22/2023 Orders Only External Location [address] [place] [address] Provider, External Social History Tobacco Use Types [...] on filedocumented in this encounter Care Teams Building Construction Teacher Relationship Specialty Start Date End Date Shamika Roy APRN [address] [place] [id number] PCP - General 09/08/23 documented as of this encounter
--- OUTSIDE RECORDS SUMMARY | 2024-11-14 20:36 | XMS_ITS | Encounter Summary ---
Author Organization Healthcare Address [address] [place] [address] Care Team Providers Care Corporate Director Talent Assessment Name Role Phone Shamika Roy APRN Primary Care Provider [phone] Encounter Details Date Type Department Care Team (Late st Contact Info) Description 06/03/2023 Orders Only External Location [address] [place] [address] Provider, External Social History Tobacco Use Types [...] on filedocumented in this encounter Care Teams Corporate Director Talent Assessment Relationship Specialty Start Date End Date Shamika Roy APRN [address] [place] [id number] PCP - General 09/08/23 documented as of this encounter
--- OUTSIDE RECORDS SUMMARY | 2024-11-14 20:36 | XMS_ITS | Clinical Summary ---
Author Organization [facility] Address [address] [place] [address] Care Team Providers Care Solar Sales Rep Name Role Phone Shamika Roy APRN Primary Care Provider [phone] Allergies Active Allergy Reactions Criticality Noted Date [...] High 10/11/2012 Medications pregabalin (Lyrica) 150 MG capsuleIndicatio ns:Panic Disorder Take 1 capsule by mouth 3 times a day. Active oxyCODONE (Roxicodone) 10 MG immediate release tabletIndication s:Chronic Pain Take 1 tablet by mouth every 4 hours. Active topiramate (Topamax) 25 MG tabletIndication s:Migraine Take 1 tablet by mouth nightly. Active losartan (Cozaar) 50 MG tabletIndication s:Hypertension Take 1 tablet by mouth daily. Active LORazepam (Ativan) 1 MG tabletIndication s:Seizure Disorder Take 1 tablet by mouth 3 times a day. Active traZODone (Desyrel) 50 MG tabletIndication s:Insomnia Take 1-2 tablets by mouth at night as needed for sleep. Active promethazine (Phenergan) 25 MG tabletIndication s:Motion Sickness Take 1 tablet by mouth every 6 hours as needed for nausea or vomiting. Active baclofen (Lioresal) 10 MG tabletIndication s:Muscle Spasm Take 1 tablet by mouth 4 times a day as needed for muscle spasms. Active empagliflozin (Jardiance) 25 MGIndications:Ty pe 2 Diabetes Mellitus Take 1 tablet by mouth daily. Active fenofibrate (Tricor) 48 MG tabletIndication s:Hypertriglycer idemia Take 1 tablet by mouth daily. Active potassium chloride CR (Klor-Con) 10 MEQ ER tabletIndication s:Hypokalemia Take 1 tablet by mouth daily. Do not crush, chew, or split. Active levETIRAcetam (Keppra) 750 MG tabletIndication s:Seizure Take 2 tablets by mouth 2 times a day. Active glucose (Trueplus Glucose) 4 g chewable tabletIndication s:Type 2 Diabetes Mellitus Chew 1-4 tablets as needed for low blood sugar. 4 Active EPINEPHrine (Epipen) 0.3 MG/0.3ML injection syringeIndicatio ns:Anaphylaxis Inject 0.3 mL as directed as needed for anaphylaxis. 4 Active folic acid (Folvite) 400 MCG tabletIndication s:Folate Deficiency Anemia Take 1 tablet by mouth daily. Active NovoLOG 100 UNIT/ML injection vialIndications: Type 2 Diabetes Mellitus Inject 0-12 Units under the skin 3 times a day with meals. 4 Active metoprolol succinate XL (Toprol-XL) 100 MG 24 hr tabletIndication s:Hypertension Take 1 tablet by mouth daily. 4 Active clopidogrel (Plavix) 75 MG tabletIndication s:Acute Coronary Syndrome Take 1 tablet (75 mg) by mouth 1 (one) time each day. 90 tablet 3 4 Active rosuvastatin (Crestor) 10 MG tabletIndication s:Hyperlipidemia Take 1 tablet (10 mg) by mouth 1 (one) time each day. 90 tablet 3 4 Active calcitriol (Rocaltrol) 0.25 MCG capsuleIndicatio ns:Hypocalcemia Take 1 capsule by mouth 3 times a week. Active insulin glargine (Lantus) 100 UNIT/ML injection vialIndications: Type 2 Diabetes Mellitus Inject 50 Units under the skin 2 times a day. Active isosorbide mononitrate ER (Imdur) 60 MG 24 hr tabletIndication s:Stable Angina Pectoris Take 1 tablet by mouth daily. Do not crush or chew. Active ranolazine (Ranexa) 500 MG 12 hr tabletIndication s:Stable Angina Pectoris Take 1 tablet by mouth 2 times a day. Do not crush, chew, or split. Active Melatonin 10 MG tabletIndication s:Insomnia Take 10 mg by mouth at night as needed (for sleep). Active promethazine (Phenergan) 25 MG suppositoryIndic ations:Motion Sickness Insert 1 suppository into the rectum every 6 hours as needed for nausea or vomiting. Active Active Problems Problem Noted Date Diagnosed Date Borderline personality disorder 09/10/2024 Diabetes 09/10/2024 Seizure disorder 09/10/2024 HTN (hypertension) 09/10/2024 HLD (hyperlipidemia) 09/10/2024 Chronic pain 09/10/2024 Nicotine use disorder 09/10/2024 History of TIA (transient ischemic attack) 11/09 History of ischemic stroke 11/10/2023 Stroke-like symptoms 09/07/2023 Encounters Date Type Department Care Team Description 09/14/2024 Telephone [facility] Inpatient Psychiatry [address] [place] [address] Linda Pepe 09/13/2024 Telephone [facility] Inpatient Psychiatry [address] [place] [address] Linda Pepe 09/09/2024 7:40 AM EDT - 09/10/2024 10:41 AM EDT Hospital Encounter [facility] Inpatient Psychiatry [address] [place] [address] Jose Alberto Quiroga MD Potter, Samuel J, MD Suicide attempt (CMS/[facility]) (Primary Dx) Discharge Disposition: Home or Self Care 09/09/2024 Plan of Care Documentation [facility] Inpatient Psychiatry [address] [place] [address] 09/09/2024 Travel from Last 3 Months Social History Tobacco Use Types Packs/Day Years Used Date Smoking Tobacco: Every Day Cigarettes Smokeless Tobacco: Never Tobacco Cessation:Ready to Q uit: Not Asked; Counseling Given: Not Answered Alcohol Use Standard Drinks/Week Comments Never 0 (1 standard drink = 0.6 oz pur e alcohol) PHQ-2 Answer Date Recorded Patient Health Questionnaire-2 Score 6 09/09/2024 Humiliation, Afraid, Rape, and Kick questionnair e [...] Never 09/09/2024 How often do you attend [facility] or orthodoxy services? Never 09/09/2024 Do you belong to any clubs o r organizations such as orthodox groups, unions, fraternal or athletic groups, or [...] more drinks on one occasion? Never 09/09/2024 [facility] [place] of Occupat ional Health - Occupational Stress [...] any time in the past 12 m [facility], were you homeless or living in a long-term (including now)? No 09/09/2024 Utilities Answer Date [...] Done Comments [facility]-Medicare Annual Wellness (AWV) 1973 [facility]-/Child/Adol SDOH Screenings 1973 Diabetes: Dental Exam 09/19/1983 [...] Completed 09/07/2023 [facility]-Hepatitis C Screening Completed 09/07/2023, [id number] Vaccine Completed 01/09/2024, 12/14/19 23 [facility]-Obesity Intervention Completed 025, 01/01/2024, 01/01/2024, Additional [...] - 99 mg/dL 09/10/2024 8:00 AM EDT [facility] Comment:Accuracy of a glucos e result [...] for testing. Comment 09/10/2024 8:00 AM EDT [facility] Court Reporter ID Tri Alba 025 8:00 AM EDT [facility] Device ID [id number] 09/10/2024 8:00 AM EDT [facility] Specimen Type POC Capillary 09/10/2024 8:00 AM EDT [facility] Blood Capillary blood specimen / Unknown 09/10/2024 7:59 AM EDT 09/10/2024 8:00 AM EDT us Vicente Del Valle MD LAB POINT OF CARE TE ST DOCKED DEVICE UNSOLICITED RESULTS Final Result [facility] [address] [place] [id number] * (ABNORMAL) OXYCODONE CONFIRMATION,URINE (09/09/2024 2:25 PM EDT) Oxycodone 659(H) <50 ng/mL 09/12/2024 10:11 PM EDT [facility] Oxymorphone <50 <50 ng/mL 09/12/2024 10:11 PM EDT [facility] Oxymorphone Glucuronide >1,000(H) <50 ng/mL 09/12/2024 10:11 PM EDT [facility] Urine Urine specimen obtained by clean catch procedure / Unknown 09/09/2024 2:25 PM EDT 09/09/2024 4:04 PM EDT Narrative [facility] - 09/12/2024 10:11 PM EDT Test performed by LC-MS/MS at the [facility]. This test was developed and its performance characteristics determined by [facility]. It has not been cleared or approved by the FDA. The laboratory is regulated under CLIA as qualified to perform high-complexity testing. This test is used for clinical purposes. us Vicente Del Valle MD LAB URINE ORDERABLES Final Re sult [facility] [address] [place] [address] * Drug abuse screen (09/09/2024 2:25 PM EDT) Amphetamine Screen Urine Negative Cutoff: 500 ng/mL 09/09/2024 4:23 PM EDT [facility] Benzodiazepines Screen Urine Presumptive positive. Confirmation by LC-MS/MS to follow. Cutoff: 200 ng/mL 09/09/2024 4:23 PM EDT [facility] Cannabinoid Screen Urine Negative Cutoff: 50 ng/mL 09/09/2024 4:23 PM EDT [facility] Cocaine Screen Urine Negative Cutoff: 300 ng/mL 09/09/2024 4:23 PM EDT [facility] Barbiturate Screen Urine Negative Cutoff: 200 ng/mL 09/09/2024 4:23 PM EDT [facility] Opiate Screen Urine Negative Cutoff: 300 ng/mL 09/09/2024 4:23 PM EDT [facility] Methadone Screen Urine Negative Cutoff: 300 ng/mL 09/09/2024 4:23 PM EDT [facility] Buprenorphine Screen Urine Negative Cutoff: 10 ng/mL 09/09/2024 4:23 PM EDT [facility] Fentanyl Screen Urine Negative Cutoff: 1 ng/mL 09/09/2024 4:23 PM EDT [facility] Oxycodone Screen Urine Presumptive positive. Confirmation by LC-MS/MS to follow. Cutoff: 100 ng/mL 09/09/2024 4:23 PM EDT [facility] Urine Urine specimen obtained by clean catch procedure / Unknown 09/09/2024 2:25 PM EDT 09/09/2024 4:04 PM EDT us Vicente Del Valle MD LAB URINE ORDERABLES Final Re sult [facility] [address] [place] [id number] * (ABNORMAL) Benzodiazepine Confirm Urine (09/09/2024 2:25 PM EDT) Alpha [place] Alprazolam <20 <20 ng/mL 09/12 10:10 PM EDT [facility] Alpha [place] Midazolam <20 <20 ng/mL 2024 10:10 PM EDT [facility] Alpha [place] Triazolam <20 <20 ng/mL 2024 10:10 PM EDT [facility] Alprazolam <10 <10 ng/mL 09/12/2024 10:10 PM EDT [facility] Aminoclonazepam <20 <20 ng/mL 10:10 PM EDT [facility] Clonazepam <10 <10 ng/mL 09/12/2024 10:10 PM EDT [facility] Diazepam <10 <10 ng/mL 09/12/2024 10:10 PM EDT [facility] Lorazepam <20 <20 ng/mL 09/12/2024 10:10 PM EDT [facility] Lorazepam Glucuronide >1,000(H) <50 ng/mL 09/12/2024 10:10 PM EDT [facility] Midazolam <20 <20 ng/mL 09/12/2024 10:10 PM EDT [facility] Nordiazepam <20 <20 ng/mL 09/12/2024 10:10 PM EDT [facility] Oxazepam <20 <20 ng/mL 09/12/2024 10:10 PM EDT [facility] Oxazepam Glucuronide <50 <50 ng/mL 09/12/2024 10:10 PM EDT [facility] Temazepam <20 <20 ng/mL 09/12/2024 10:10 PM EDT [facility] Temazepam Glucuronide <50 <50 ng/mL 09/12/2024 10:10 PM EDT [facility] Triazolam <20 <20 ng/mL 09/12/2024 10:10 PM EDT [facility] Urine Urine specimen obtained by clean catch procedure / Unknown 09/09/2024 2:25 PM EDT 09/09/2024 4:04 PM EDT Narrative [facility] - 09/12/2024 10:10 PM EDT Drug analysis is confirmed by LC-MS/MS (LC Tandem Mass Spectrometry) on Urine specimens. This test was developed and its performance characteristics determined by [facility]. It has not been cleared or approved by the FDA. The laboratory is regulated under CLIA as qualified to perform high-complexity testing. This test is used for clinical purposes. Testing is performed at the [facility]. us Vicente Del Valle MD LAB URINE ORDERABLES Final Re sult [facility] [address] [place] [address] * (ABNORMAL) Urinalysis with reflex microscopic (Culture NOT Included) (09/09/2024 2:25 PM EDT) Color, Urine Yellow LAB URINALYSIS - AUTOMATED METHOD 09/09/2024 4:07 PM EDT [facility] Clarity, Urine Clear LAB URINALYSIS - AUTOMATED METHOD 09/09/2024 4:07 PM EDT [facility] Spec Larue, Urine >1.030(H) 1.005 - 1.030 LAB URINALYSIS - AUTOMATED METHOD 09/09/2024 4:07 PM EDT [facility] pH, Urine 6.0 5.0 - 8.0 LAB URINALYSIS - AUTOMATED METHOD 09/09/2024 4:07 PM EDT [facility] Protein, Urine Trace(A) Negative mg/dL LAB URINALYSIS - AUTOMATED METHOD 09/09/2024 4:07 PM EDT [facility] Glucose, Urine >=1000(A) Negative mg/dL LAB URINALYSIS - AUTOMATED METHOD 09/09/2024 4:07 PM EDT [facility] Ketones, Urine Negative Negative mg/dL LAB URINALYSIS - AUTOMATED METHOD 09/09/2024 4:07 PM EDT [facility] Blood, Urine Negative Negative LAB URINALYSIS - AUTOMATED METHOD 09/09/2024 4:07 PM EDT [facility] Bilirubin, Urine Negative Negative LAB URINALYSIS - AUTOMATED METHOD 09/09/2024 4:07 PM EDT [facility] Urobilinogen, Urine 1.0 0.2 to 1.0 mg/dL LAB URINALYSIS - AUTOMATED METHOD 09/09/2024 4:07 PM EDT [facility] Leukocytes, Urine Negative Negative LAB URINALYSIS - AUTOMATED METHOD 09/09/2024 4:07 PM EDT [facility] Nitrite, Urine Negative Negative LAB URINALYSIS - AUTOMATED METHOD 09/09/2024 4:07 PM EDT [facility] Urine Urine specimen obtained by clean catch procedure / Unknown 09/09/2024 2:25 PM EDT 09/09/2024 4:04 PM EDT us Vicente Del Valle MD LAB URINE ORDERABLES Final Re sult [facility] [address] [place] [address] * (ABNORMAL) CBC w/diff (09/09/2024 9:57 AM EDT) WBC Count 11.41(H) 3.70 - 10.30 10*3/uL LAB HEMATOLOGY METHOD 09/09/2024 12:35 PM EDT [facility] RBC Count 5.13 4.60 - 6.10 10*6/uL LAB HEMATOLOGY METHOD 09/09/2024 12:35 PM EDT [facility] HGB 15.1 13.7 - 17.5 g/dL LAB HEMATOLOGY METHOD 09/09/2024 12:35 PM EDT [facility] HCT 45.3 40.0 - 51.0 % LAB HEMATOLOGY METHOD 09/09/2024 12:35 PM EDT [facility] Platelet Count 172 155 - 369 10*3/uL LAB HEMATOLOGY METHOD 09/09/2024 12:35 PM EDT [facility] MCV 88 79 - 98 fL LAB HEMATOLOGY METHOD 09/09/2024 12:35 PM EDT [facility] MCH 29.4 26.0 - 32.0 pg LAB HEMATOLOGY METHOD 09/09/2024 12:35 PM EDT [facility] MCHC 33.3 30.7 - 35.5 g/dL LAB HEMATOLOGY METHOD 09/09/2024 12:35 PM EDT [facility] RDW 12.9 11.5 - 14.5 % LAB HEMATOLOGY METHOD 09/09/2024 12:35 PM EDT [facility] MPV 10.9 8.8 - 12.5 fL LAB HEMATOLOGY METHOD 09/09/2024 12:35 PM EDT [facility] nRBC 0.0 <=0.0 per 100 WBCs LAB HEMATOLOGY METHOD 09/09/2024 12:35 PM EDT [facility] Differential Type Automated LAB HEMATOLOGY METHOD 09/09/2024 12:35 PM EDT [facility] Neutrophils % 60 % LAB HEMATOLOGY METHOD 09/09/2024 12:35 PM EDT [facility] Lymphocytes % 27 % LAB HEMATOLOGY METHOD 09/09/2024 12:35 PM EDT [facility] Monocytes % 9 % LAB HEMATOLOGY METHOD 09/09/2024 12:35 PM EDT [facility] Eosinophils % 3 % LAB HEMATOLOGY METHOD 09/09/2024 12:35 PM EDT [facility] Basophils % 1 % LAB HEMATOLOGY METHOD 09/09/2024 12:35 PM EDT [facility] Immature Granulocytes % 0 % LAB HEMATOLOGY METHOD 09/09/2024 12:35 PM EDT [facility] Neutrophils Absolute 6.99(H) 1.60 - 6.10 10*3/uL LAB HEMATOLOGY METHOD 09/09/2024 12:35 PM EDT [facility] Lymphocytes Absolute 3.03 1.20 - 3.90 10*3/uL LAB HEMATOLOGY METHOD 09/09/2024 12:35 PM EDT [facility] Monocytes Absolute 0.99(H) 0.30 - 0.90 10*3/uL LAB HEMATOLOGY METHOD 09/09/2024 12:35 PM EDT [facility] Eosinophils Absolute 0.30 0.00 - 0.50 10*3/uL LAB HEMATOLOGY METHOD 09/09/2024 12:35 PM EDT [facility] Basophils Absolute 0.07 0.00 - 0.10 10*3/uL LAB HEMATOLOGY METHOD 09/09/2024 12:35 PM EDT [facility] Immature Granulocytes Absolute 0.03 0.00 - 0.06 10*3/uL LAB HEMATOLOGY METHOD 09/09/2024 12:35 PM EDT [facility] Blood Venous blood specimen / Unknown Venipuncture / Unknown 09/09/2024 9:57 AM EDT 09/09/2024 9:57 AM EDT Narrative [facility] - 09/09/2024 12:35 PM EDT Therapeutic decision making should be based on absolute values, rather than percentages. Jose Alberto Quiroga MD LAB BLOOD ORDERABLES Final Result Performing Organization Address City/[facility] Co de Phone Number [facility] [address] [place] [address] * Thyroid Stimulating Hormone, Plasma (09/09/2024 9:57 AM EDT) Thyroid Stimulating Hormone, Plasma 1.42 0.40 - 4.20 uIU/mL 09/09/2024 12:47 PM EDT [facility] Blood Venous blood specimen / Unknown Venipuncture / Unknown 09/09/2024 9:57 AM EDT 09/09/2024 9:57 AM EDT Jose Alberto Quiroga MD LAB BLOOD ORDERABLES Final Result Performing Organization Address City/[facility]/ZIP Co de Phone Number [facility] [address] [place] [address] * Free T4, Plasma (09/09/2024 9:57 AM EDT) Free T4, Plasma 1.3 0.8 - 1.7 ng/dL 09/09/2024 12:47 PM EDT [facility] Blood Venous blood specimen / Unknown Venipuncture / Unknown 09/09/2024 9:57 AM EDT 09/09/2024 9:57 AM EDT Jose Alberto Quiroga MD LAB BLOOD ORDERABLES Final Result [facility] [address] [place] [address] * (ABNORMAL) Hemoglobin A1c (09/09/2024 9:57 AM EDT) Hemoglobin A1c 10.7(H) <5.7 % 09/09/2024 1:22 PM EDT [facility] Blood Venous blood specimen / Unknown Venipuncture / Unknown 09/09/2024 9:57 AM EDT 09/09/2024 9:57 AM EDT Narrative [facility] - 09/09/2024 1:22 PM EDT HA1C Interpretive Data: Diagnosis of Diabetes: Diabetic > or = 6.5% Pre-diabetic 5.7 to 6.4% Non-diabetic < or = 5.6% Glycemic Targets for Type I and Type II Diabetics: Non- Adults <7.0% Adults <6.0% Children and Adolescents <7.5% Source: [place] [employer]. Standards of medical care in diabetes,2017. Diabetes Care.2017:40 (suppl 1):S1-S135. Jose Alberto Quiroga MD LAB BLOOD ORDERABLES Final Result [facility] [address] [place] [address] * (ABNORMAL) Lipid panel (09/09/2024 9:57 AM EDT) Cholesterol, Plasma 90 <200 mg/dL 09/09/2024 1:59 PM EDT [facility] Comment: Cholesterol Reference Range (age >17 years): Desirable <200 mg/dL Borderline 200 to 239 mg/dL Undesirable >239 mg/dL HDL 28(L) >=40 mg/dL 09/09/2024 1:59 PM EDT [facility] Comment: HDL Cholesterol Reference Ranges (age >17 years): Female, acceptable > or = 50 mg/dL Male, acceptable > or = 40 mg/dL Triglycerides, Plasma 185(H) <150 mg/dL 09/09/2024 1:59 PM EDT [facility] Comment: Triglyceride Reference Range (age >17 years): Desirable: <150 mg/dL Borderline high: 150 to 199 mg/dL High: 200 to 499 mg/dL Very high: >499 mg/dL Increased risk of pancreatitis: >1000 mg/dL Cholesterol/HDL Ratio 3 09/09/2024 1:59 PM EDT [facility] LDL, Calculated 32 <100 mg/dL 1:59 PM EDT [facility] Comment: LDL Cholesterol Reference Range (age [...] 12 hours? Unknown 09/09/2024 1:59 PM EDT [facility] Blood Venous blood specimen / Unknown Venipuncture / Unknown 09/09/2024 9:57 AM EDT 09/09/2024 9:57 AM EDT us Vicente Del Valle MD LAB BLOOD ORDERABLES Final Re sult [facility] [address] [place] [address] * (ABNORMAL) CMP (09/09/2024 9:57 AM EDT) Glucose, Plasma 109(H) 74 - 99 mg/dL 09/09/2024 12:47 PM EDT [facility] BUN, Plasma 13 7 - 21 mg/dL 09/09/2024 12:47 PM EDT [facility] Creatinine, Plasma 0.99 0.70 - 1.20 mg/dL 09/09/2024 12:47 PM EDT [facility] BUN/Creatinine Ratio 13 09/09/2024 12:47 PM EDT [facility] Sodium, Plasma 138 136 - 145 mmol/L 09/09/2024 12:47 PM EDT [facility] Potassium, Plasma 4.1 3.6 - 4.9 mmol/L 09/09/2024 12:47 PM EDT [facility] Chloride, Plasma 104 97 - 107 mmol/L 09/09/2024 12:47 PM EDT [facility] CO2, Plasma 22 22 - 29 mmol/L 09/09/2024 12:47 PM EDT [facility] Anion Gap 12 6 - 16 mmol/L 09/09/2024 12:47 PM EDT [facility] Total Calcium, Plasma 9.0 8.9 - 10.2 mg/dL 09/09/2024 12:47 PM EDT [facility] Total Protein 7.3 6.3 - 7.9 g/dL 09/09/2024 12:47 PM EDT [facility] Albumin, Plasma 4.1 3.5 - 5.2 g/dL 09/09/2024 12:47 PM EDT [facility] AST, Plasma 18 10 - 50 U/L 09/09/2024 12:47 PM EDT [facility] ALT, Plasma 10 10 - 50 U/L 09/09/2024 12:47 PM EDT [facility] Alkaline Phosphatase, Plasma 56 40 - 115 U/L 09/09/2024 12:47 PM EDT [facility] Total Bilirubin, Plasma 0.2 0.2 - 1.1 mg/dL 09/09/2024 12:47 PM EDT [facility] eGFRcr 92.8 mL/min/1.7 3m*2 09/09/2024 12:47 PM EDT [facility] Comment:Reported eGFRcr in m L/min/1.73m2 is based the CKD-EPI 2020 equation that does not use a race coefficient. Blood Venous blood specimen / Unknown Venipuncture / Unknown 09/09/2024 9:57 AM EDT 09/09/2024 9:57 AM EDT Jose Alberto Quiroga MD LAB BLOOD ORDERABLES Final Result Performing Organization Address [facility] Co de Phone Number [facility] [address] [place] [address] * Hepatitis C Antibody - ED (09/07/2023 6:31 PM EDT) Hepatitis C Antibody Negative Negative 09/07/2023 6:31 PM EDT [facility] Blood Venous blood specimen / Unknown 09/07/2023 5:51 PM EDT Aron Lala MD LAB BLOOD ORDERABLES Final Re sult Performing Organization Address [facility] de Phone Number [facility] [address] [place] [address] * ED HIV 1/2 Antibody/Antigen Screen w/Reflex to HIV 1/2 Differentiation (09/07/2023 6:31 PM EDT) [facility] HIV 1 & 2 Antibody/Antigen Screen Non Reactive Non Reactive 09/07/2023 6:31 PM EDT [facility] Comment:Screening for HIV 1 & 2 antibodies, and P24 antigen is NONREACTIVE. No confirmatory testing is required. Blood Venous blood specimen / Unknown 09/07/2023 5:50 PM EDT Aron Lala MD LAB BLOOD ORDERABLES Final Re sult Performing Organization Address [facility] de Phone Number [facility] [address] [place] [address] from Last 3 Months or Most Recently Relevant to Health Maintenance Insurance MEDICARE [place] Advance Directives * Full Code (Latest Code [...] Patient has decision-making capacity? Yes Care Teams Solar Sales Rep Relationship Specialty Start Date End Date Shamika Roy APRN [address] [place] [address] PCP - General 09/08/23
--- OUTSIDE RECORDS SUMMARY | 2024-11-14 20:36 | XMS_ITS | Encounter Summary ---
Author Organization Healthcare Address [address] [place] [address] Care Team Providers Care Manager Field Services Name Role Phone Shamika Roy APRN Primary Care Provider [phone] Encounter Details Date Type Department Care Team (Late st Contact Info) Description 04/16/2023 Lab Requisition [facility] [address] [place] [address] Tony Rios PA [address] [place] [address] Routine general medical examination at [...] EST Routine general medical examination at a [facility] care facility TSH Routine 04/16/2023 7:28 AM EST Routine general medical examination at a [facility] care facility FREE T4, PLASMA Routine 04/16/2023 7:28 AM EST Routine general medical examination at a [facility] care facility HEMOGLOBIN A1C Routine 04/16/2023 7:28 AM EST Routine general medical examination at a [facility] care facility LIPID PROFILE, PLASMA Routine 04/16/2023 7:28 AM EST Routine general medical examination at a [facility] COMPREHENSIVE METABOLIC PANEL, PLASMA Routine 04/16/2023 7:28 AM EST Routine general medical examination at a [facility] documented in this encounter Results * TSH (04/16/2023 7:28 AM EST) Thyroid Stimulating Hormone, Plasma 2.48 0.40 - 4.20 uIU/mL 04/16/2023 10:01 AM EST [email or web address] Blood Venous blood specimen / Unknown Venipuncture / Unknown 04/16/2023 7:28 AM EST 04/16/2023 8:22 AM EST us Tony FOWLER LAB BLOOD ORDERABLES Final Re sult [facility] [address] [place] [address] * T4, free (04/16/2023 7:28 AM EST) Free T4, Plasma 1.3 0.8 - 1.7 ng/dL 04/16/2023 10:01 AM EST [email or web address] Blood Venous blood specimen / Unknown Venipuncture / Unknown 04/16/2023 7:28 AM EST 04/16/2023 8:22 AM EST us Tony FOWLER LAB BLOOD ORDERABLES Final Re sult [facility] [address] [place] [address] * (ABNORMAL) CBC and Differential (04/16/2023 7:28 AM EST) WBC Count 10.50(H) 3.70 - 10.30 10*3/uL LAB HEMATOLOGY METHOD 04/16/2023 9:38 AM EST [facility] RBC Count 4.77 4.60 - 6.10 10*6/uL LAB HEMATOLOGY METHOD 04/16/2023 9:38 AM EST [facility] HGB 13.5(L) 13.7 - 17.5 g/dL LAB HEMATOLOGY METHOD 04/16/2023 9:38 AM EST [facility] HCT 40.5 40.0 - 51.0 % LAB HEMATOLOGY METHOD 04/16/2023 9:38 AM EST [facility] Platelet Count 205 155 - 369 10*3/uL LAB HEMATOLOGY METHOD 04/16/2023 9:38 AM EST [facility] MCV 85 79 - 98 fL LAB HEMATOLOGY METHOD 04/16/2023 9:38 AM EST [facility] MCH 28.3 26.0 - 32.0 pg LAB HEMATOLOGY METHOD 04/16/2023 9:38 AM EST [facility] MCHC 33.3 30.7 - 35.5 g/dL LAB HEMATOLOGY METHOD 04/16/2023 9:38 AM EST [facility] RDW 13.1 11.5 - 14.5 % LAB HEMATOLOGY METHOD 04/16/2023 9:38 AM EST [facility] MPV 10.8 8.8 - 12.5 fL LAB HEMATOLOGY METHOD 04/16/2023 9:38 AM EST [facility] nRBC 0.0 <=0.0 per 100 WBCs LAB HEMATOLOGY METHOD 04/16/2023 9:38 AM EST [facility] Differential Type Automated LAB HEMATOLOGY METHOD 04/16/2023 9:38 AM EST [facility] Neutrophils % 48.0 % LAB HEMATOLOGY METHOD 04/16/2023 9:38 AM EST [facility] Lymphocytes % 40.0 % LAB HEMATOLOGY METHOD 04/16/2023 9:38 AM EST [facility] Monocytes % 8.0 % LAB [...] LAB HEMATOLOGY METHOD 04/16/2023 9:38 AM EST [facility] Lymphocytes Absolute 4.21(H) 1.20 - 3.90 10*3/uL LAB HEMATOLOGY METHOD 04/16/2023 9:38 AM EST [facility] Monocytes Absolute 0.86 0.30 - 0.90 10*3/uL LAB HEMATOLOGY METHOD 04/16/2023 9:38 AM EST [facility] Eosinophils Absolute 0.30 0.00 - 0.50 10*3/uL LAB HEMATOLOGY METHOD 04/16/2023 9:38 AM EST [facility] Basophils Absolute 0.06 0.00 - 0.10 10*3/uL LAB HEMATOLOGY METHOD 04/16/2023 9:38 AM EST [facility] Immature Granulocytes Absolute 0.03 0.00 - 0.06 10*3/uL LAB HEMATOLOGY METHOD 04/16/2023 9:38 AM EST [facility] Blood Venous blood specimen / Unknown Venipuncture / Unknown 04/16/2023 7:28 AM EST 04/16/2023 8:09 AM EST Narrative [facility] - 04/16/2023 9:38 AM EST Therapeutic decision making should be based on absolute values, rather than percentages. us Tony Rios PA LAB BLOOD ORDERABLES Final Re sult [facility] [address] [place] [address] * (ABNORMAL) Hemoglobin A1c (04/16/2023 7:28 AM [...] Adults <6.0% Children and Adolescents <7.5% Source: [place] [employer]. Standards of medical care in diabetes,2017. Diabetes Care.2017:40 (suppl 1):S1-S135. HbA1c assay performed by an ion-exchange chromatography method that is certified traceable to the DCCT. us Tony FOWLER LAB BLOOD ORDERABLES Final Re sult [facility] [address] [place] [address] * (ABNORMAL) Lipid panel (04/16/2023 7:28 AM EST) Cholesterol, Plasma 86 <200 mg/dL 04/16/2023 10:01 AM EST [facility] Comment: Cholesterol Reference Range (age >17 years): Desirable <200 mg/dL Borderline 200 to 239 mg/dL Undesirable >239 mg/dL HDL 28(L) >=40 mg/dL 04/16/2023 10:01 AM EST [email or web address] Comment: HDL Cholesterol Reference Ranges (age [...] Cholesterol/HDL Ratio 3 04/16/2023 10:01 AM EST [email or web address] LDL, Calculated 32 <100 mg/dL 10:01 AM EST [email or web address] Comment: LDL Cholesterol Reference Range (age [...] 12 hours? Unknown 04/16/2023 10:01 AM EST [facility] Blood Venous blood specimen / Unknown Venipuncture / Unknown 04/16/2023 7:28 AM EST 04/16/2023 8:22 AM EST us Tony FOWLER LAB BLOOD ORDERABLES Final Re sult [facility] [address] [place] [address] * (ABNORMAL) Comprehensive metabolic panel (04/16/2023 7:28 AM EST) Glucose, Plasma 222(H) 74 - 99 mg/dL 04/16/2023 10:01 AM [facility] BUN, Plasma 12 7 - 21 mg/dL 04/16/2023 10:01 AM [facility] Creatinine, Plasma 0.80 0.80 - 1.30 mg/dL 04/16/2023 10:01 AM [facility] BUN/Creatinine Ratio 15 04/16/2023 10:01 AM [facility] Sodium, Plasma 138 136 - 145 mmol/L 04/16/2023 10:01 AM [facility] Potassium, Plasma 4.2 3.7 - 4.8 mmol/L 04/16/2023 10:01 AM [facility] Chloride, Plasma 103 97 - 107 mmol/L 04/16/2023 10:01 AM [facility] CO2, Plasma 25 22 - 29 mmol/L 04/16/2023 10:01 AM [facility] Anion Gap 10 6 - 16 mmol/L 04/16/2023 10:01 AM [facility] Total Calcium, Plasma 9.1 8.9 - 10.2 mg/dL 04/16/2023 10:01 AM [facility] Total Protein 7.3 6.3 - 7.9 g/dL 04/16/2023 10:01 AM EST [facility] Albumin, Plasma 4.0 3.5 - 5.2 g/dL 04/16/2023 10:01 AM EST [facility] AST, Plasma 26 10 - 50 U/L 04/16/2023 10:01 AM [facility] ALT, Plasma 17 10 - 50 U/L 04/16/2023 10:01 AM EST [facility] Alkaline Phosphatase, Plasma 68 40 - 115 U/L 04/16/2023 10:01 AM EST [facility] Total Bilirubin, Plasma 0.6 0.2 - 1.1 mg/dL 04/16/2023 10:01 AM EST [facility] eGFRcr 108.5 mL/min/1.7 3m*2 04/16/2023 10:01 AM [facility] Comment:Reported eGFRcr in m L/min/1.73m2 is based the CKD-EPI 2020 equation that does not use a race coefficient. Blood Venous blood specimen / Unknown Venipuncture / Unknown 04/16/2023 7:28 AM EST 04/16/2023 8:22 AM EST Tony FOWLER LAB BLOOD ORDERABLES Final Re sult Performing Organization Address City/[facility]/ZIP Co de Phone Number [facility] [address] [place] [address] * Hepatitis panel, acute (04/16/2023 7:28 AM EST) Hepatitis B Surf Antigen Negative Negative 04/16/2023 10:47 AM EST [facility] Hepatitis C Antibody Negative Negative 04/16/2023 10:47 AM EST [facility] Hepatitis A Antibody IgM Negative Negative 04/16/2023 10:47 AM EST [facility] Hepatitis B Core Antibody IgM Negative Negative 04/16/2023 10:47 AM EST [facility] Blood Venous blood specimen / Unknown Venipuncture / Unknown 04/16/2023 7:28 AM EST 04/16/2023 8:25 AM EST Tony FOWLER LAB BLOOD ORDERABLES Final Re sult Performing Organization Address City/[facility]/ZIP Co de Phone Number [facility] [address] [place] [address] * (ABNORMAL) Serum Drug Screen (04/16/2023 7:28 AM EST) 9 Carboxy THC <5 <5 ng/mL 04/17/2023 9:32 PM EST [facility] Alprazolam <5 <5 ng/mL 04/17/2023 9:32 PM EST [facility] Amphetamine <10 <10 ng/mL 04/17/2023 9:32 PM EST [facility] Benzolyecgonine <20 <20 ng/mL 9:32 PM EST [facility] Buprenorphine <1 <1 ng/mL 04/17/2023 9:32 PM EST [facility] Butalbital <50 <50 ng/mL 04/17/2023 9:32 PM EST [facility] Clonazepam <5 <5 ng/mL 04/17/2023 9:32 PM EST [facility] Codeine <5 <5 ng/mL 04/17/2023 9:32 PM EST [facility] Diazepam <5 <5 ng/mL 04/17/2023 9:32 PM EST [facility] Fentanyl <1 <1 ng/mL 04/17/2023 9:32 PM [facility] Hydrocodone <2 <2 ng/mL 04/17/2023 9:32 PM EST [facility] Hydromorphone <5 <5 ng/mL 04/17/2023 9:32 PM EST [facility] Lorazepam 23(H) <5 ng/mL 04/17/2023 9:32 PM EST [facility] MDA <10 <10 ng/mL 04/17/2023 9:32 PM EST [facility] MDMA <10 <10 ng/mL 04/17/2023 9:32 PM [facility] Meperidine <5 <5 ng/mL 04/17/2023 9:32 PM [facility] Methadone <10 <10 ng/mL 04/17/2023 9:32 PM EST [facility] Methadone Metabolite <10 <10 ng/mL 03/2023 9:32 PM [facility] Methamphetamine <10 <10 ng/mL 9:32 PM [facility] Midazolam <5 <5 ng/mL 04/17/2023 9:32 PM [facility] Morphine <2 <2 ng/mL 04/17/2023 9:32 PM EST [facility] Norbuprenorphine <5 <5 ng/mL 04/17/19 9:32 PM EST [facility] Nordiazepam <10 <10 ng/mL 04/17/2023 9:32 PM EST [facility] Oxazepam <5 <5 ng/mL 04/17/2023 9:32 PM EST [facility] Oxycodone 12(H) <2 ng/mL 04/17/2023 9:32 PM EST [facility] Oxymorphone <2 <2 ng/mL 04/17/2023 9:32 PM EST [facility] Phenobarbital <50 <50 ng/mL 04/17/2023 9:32 PM EST [facility] Temazepam <5 <5 ng/mL 04/17/2023 9:32 PM EST [facility] Tramadol <20 <20 ng/mL 04/17/2023 9:32 PM EST [facility] Blood Venous blood specimen / Unknown Venipuncture / Unknown 04/16/2023 7:28 AM EST 04/16/2023 8:32 AM EST Narrative [facility] - 04/17/2023 9:32 PM EST Test performed by LC-MS/MS at the [facility]. This test was developed and its performance characteristics determined by [facility]. It has not been cleared or approved by the FDA. The laboratory is regulated under CLIA as qualified to perform high-complexity testing. This test is used for clinical purposes. us Tony FOWLER LAB BLOOD ORDERABLES Final Re sult [facility] [address] [place] [address] * Levetiracetam level (04/16/2023 7:28 AM EST) Levetiracetam (Keppra) 22.7 12.0 - 46.0 ug/mL 04/16/2023 9:29 PM EST [facility] Blood Venous blood specimen / Unknown Venipuncture / Unknown 04/16/2023 7:28 AM EST 04/16/2023 8:32 AM EST Narrative [facility] - 04/16/2023 9:29 PM EST Test performed by LC-MS/MS at the [facility]. This test was developed and its performance characteristics determined by [facility]. It has not been cleared or approved by the FDA. The laboratory is regulated under CLIA as qualified to perform high-complexity testing. This test is used for clinical purposes. Tony FOWLER LAB BLOOD ORDERABLES Final Re sult Performing Organization Address [facility] Co de Phone Number [facility] [address] [place] [address] * (ABNORMAL) Topiramate level (04/16/2023 7:28 AM EST) Topiramate <1.0(L) 2.0 - 20.0 ug/mL 04/16/2023 9:36 PM EST [facility] Blood Venous blood specimen / Unknown Venipuncture / Unknown 04/16/2023 7:28 AM EST 04/16/2023 8:32 AM EST Narrative [email or web address] - 04/16/2023 9:36 PM EST Topiramate Reference Ranges: Anticonvulsant: 5.0 to 20.0 ug/mL Psychiatric: 2.0 to 8.0 ug/mL Test performed by LC-MS/MS at the [facility]. This test was developed and its performance characteristics determined by [facility]. It has not been cleared or approved by the FDA. The laboratory is regulated under CLIA as qualified to perform high-complexity testing. This test is used for clinical purposes. Tony FOWLER LAB BLOOD ORDERABLES Final Re sult Performing Organization Address [facility] Co de Phone Number [facility] [address] [place] [address] documented in this encounter Visit Diagnoses Diagnosis Routine general medical examination at a health care facility documented in this encounter Care Teams Manager Field Services Relationship Specialty Start Date End Date Shamika Roy APRN [address] [place] [id number] PCP - General 09/08/23 documented as of this encounter
--- OUTSIDE RECORDS SUMMARY | 2024-11-14 20:36 | XMS_ITS | Clinical Summary ---
Author Organization [facility] Address [address], [address] [place] [address] Care Team Providers Care Air Antisubmarine Officer Name Role Phone Carli Samayoa HEAT READER - MANAGER TRACK Primary Care Provider [phone] Allergies Active Allergy Reactions Criticality Noted Date [...] on 40 units of Lantus BID at [facility], Reported on 04/29/2020 insulin aspart (NOVOLOG FLEXPEN) [...] hours Active Cholecalciferol (VITAMIN D3) 1.25 MG (64418 UT) CAPS Take 1 tablet by mouth [...] Treatment Not on file Insurance [place]ICAID [place] Member Subscriber Plan / Payer ( fective 2014-Present) Name:Kingsley Hernandez Relation to Subscriber:Self Name:Kingsley Hernandez Payer ID:Not on file Group ID:Not on file Type:Not on file Address: [address] [place] [id number] [place] Advance [...] Hernandez Spouse Primary Decision Maker Care Teams Air Antisubmarine Officer Relationship Specialty Start Date End Date Carli Samayoa APRN - MANAGER TRACK [address] [place] [id number] PCP - General Nurse Practitioner 04/16/20
--- OUTSIDE RECORDS SUMMARY | 2024-11-14 20:36 | XMS_ITS | Clinical Summary ---
Author Organization [facility] Address [address] [place] [address] Care Team Providers Care Railroad Signal And Switch Operator Name Role Phone Karissa Henry JAY Primary Care Provider [phone] Source Comments This information has been disclosed [...] therelease of HIV test results or diagnoses. 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 Active naloxone (NARCAN) 4 mg/actuation 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 Immunizations Immunization Administration Dates Next [...] BLOOD ORDERABLES Final Resu lt [facility] [address] [place] [address], [facility] * (ABNORMAL) Lipid Profile (04/17/2020 1:53 AM EST) Cholesterol, Total 158 0 - 200 mg/dL 04/17/2020 2:23 AM EST [facility] Triglycerides 189(H) 10 - 149 mg/dL 04/17/2020 2:23 AM EST [facility] HDL 25(L) 60 - 92 mg/dL 04/17/2020 2:23 AM EST [facility] Comment: LIPID PROFILE INTERPRETATION CHOLESTEROL,TOTAL(mg/dL) [...] 95 mg/dL 2:23 AM EST [facility] Plasma specimen (specimen) 04/17/2020 1:53 AM EST 04/17/2020 1:58 AM EST Narrative [facility] - 04/17/2020 2:23 AM EST Fasting us Emiliano Magaña MD LAB BLOOD ORDERABLES Final Resu lt [facility] [address] * (ABNORMAL) Comprehensive metabolic panel (04/17/2020 1:53 AM EST) Sodium 138 133 - 146 mmol/L 04/17/2020 2:23 AM EST [facility] Potassium 3.5 3.5 - 5.3 mmol/L 04/17/2020 2:23 AM EST [facility] Chloride 104 98 - 110 mmol/L 04/17/2020 2:23 AM EST [facility] CO2 23 21 - 33 mmol/L 04/17/2020 2:23 AM EST [facility] Anion Gap 11 3 - 16 mmol/L 04/17/2020 2:23 AM [facility] BUN 12 7 - 25 mg/dL 04/17/2020 2:23 AM [facility] Creatinine 0.76 0.60 - 1.30 mg/dL 04/17/2020 2:23 AM [facility] Glucose 178(H) 70 - 100 mg/dL 04/17/2020 2:23 AM [facility] Calcium 9.4 8.6 - 10.3 mg/dL 04/17/2020 2:23 AM [facility] Total Bilirubin 0.6 0.0 - 1.5 mg/dL 04/17/2020 2:23 AM [facility] AST 10(L) 13 - 39 U/L 04/17/2020 2:23 AM [facility] ALT 6(L) 7 - 52 U/L 04/17/2020 2:23 AM [facility] Alkaline Phosphatase 68 36 - 125 U/L 04/17/2020 2:23 AM [facility] Total Protein 7.3 6.4 - 8.9 g/dL 04/17/2020 2:23 AM [facility] Albumin 4.3 3.5 - 5.7 g/dL 04/17/2020 2:23 AM [facility] Osmolality, Calculated 290 278 - 305 mOsm/kg 04/17/2020 2:23 AM [facility] eGFR AA CKD-EPI >90 See note. 2:23 AM [facility] Comment: As of 2015 the [...] equation to estimate glomerular filtration rate. Leticia Bag Cutter Med. 2009:150(9):604-12 eGFR NONAA CKD-EPI >90 See note. 2020 2:23 AM EST [facility] Comment: As of 2015 the [...] equation to estimate glomerular filtration rate. Leticia Bag Cutter Med. 2009:150(9):604-12 Plasma specimen (specimen) 04/17/2020 1:53 AM EST 04/17/2020 1:58 AM EST us Emiliano Magaña MD LAB BLOOD ORDERABLES Final Resu lt [facility] [address] * ED HIV 1+2 Antibody/Antigen with Reflex (09/25/2018 9:34 PM EDT) HIV 1+2 AB/AGN Nonreactive Nonreactive 09/26/2018 12:08 AM EDT [facility] Serum specimen (specimen) 09/25/2018 9:34 PM EDT 09/25/2018 10:52 PM EDT Narrative [facility] - 09/26/2018 12:08 AM EDT HIV-1 p24 Antigen and HIV-1/HIV-2 Antibody not detected. us Carli Elliott MD LAB BLOOD ORDERABLES Final Resul t [facility] [address] * ED HCV Ab Reflex To HCV Quant (09/25/2018 4:39 PM EDT) HCV Ab Nonreactive Nonreactive 09/25/2018 11:46 PM EDT [facility] Comment:Health Department no tified in accordance with reportable infectious disease guidelines. HCVAB Number 0.16 0.00 - 0.79 S/CO 09/25/2018 11:46 PM EDT [facility] Serum specimen (specimen) 09/25/2018 4:39 PM EDT 09/25/2018 8:27 PM EDT Carli Elliott MD LAB BLOOD ORDERABLES Final Resul t [facility] [address] [place] [address], [facility] * COLONOSCOPY (09/14/2014) Colonoscopy done Historical Provider HEALTH MAINTENANCE Final Result * DEXA SCAN (07/19/2014) Dexa Scan not done/male Anatomical Region Laterality Modality Other Historical Provider HEALTH MAINTENANCE Final Result from Last 3 Months or Most Recently Relevant to Health Maintenance Insurance MEDICARE A AND B MEDICAID [place] [employer] CHOICE PPO Advance Directives For more information, please contact: [phone] * Full Code (Latest Code Status on [...] 9:18 PM 12/18/2016 9:18 PM Care Teams Railroad Signal And Switch Operator Relationship Specialty Start Date End Date Karissa Henry NP [address] [place] [address] PCP - General Nurse Practitioner 02/19/21
--- OUTSIDE RECORDS SUMMARY | 2024-11-14 20:36 | XMS_ITS | Clinical Summary ---
Author Organization [facility] Address [address] [place] [id number] Care Team Providers Care Electronics Engineering Technician Name Role Phone Unavailable Primary Care Provider Unavailabl e Social History Tobacco Use Types Packs/Day Years Used Date Smoking Tobacco: Never Assessed Sex and Gender Information Value Date Recorded Sex Assigned at Not on file Legal Sex Male 3:28 PM EDT Gender Identity Not on file Sexual Orientation Not on file Plan of Treatment Health Maintenance Due Date Last Done Comments Wellness Exam Medicare 1976 DTaP/TDaP/Td (1 - Tdap) 1992 Hepatitis B Vaccine (1 of 3 - 19+ 3-dose series) 1992 Cologuard 2018 Colon Cancer Screening 2018 Colonoscopy 2018 FIT 2018 Sigmoidoscopy 2018 Virtual Colonography 2018 Pneumococcal Vaccine 50+ (1 of 1 - PCV) 09/19/2023 Zoster (1 of 2) 09/19/2023 COVID-19 Vaccine (1 - 2023-2 5 season) 2023 Influenza Vaccine (#1) 2024 Meningococcal B Vaccine Aged Out No l onger eligible based on patient's age to complete this topic Insurance [facility] MEDICARE HMO [place] [employer] MEDICARE HMO MR
[2024-11-14 20:38] LABS: POC Glucose,Bedside 477 gm/dL (70-110)
--- NOTE | 2024-11-14 20:50 | PC.NURSE ---
respiratory contacted and aware of need for VBG
[2024-11-14] MEDS: LACTATED RINGERS 1000ML 1,000 ML 999 ML IV (20:54)
[2024-11-14 20:55] LABS: Hematocrit 45.4 % (42.0-52.0); Hemoglobin 15.3 g/dL (14.1-18.0); Immature Granulocytes % 0.4 %; Mean Corpuscular HGB Conc 33.7 g/dL (31.8-35.4); Mean Corpuscular Hemoglobin 29.7 pg (27.0-31.2); Mean Corpuscular Volume 88.2 fl (80-94); Nucleated Red Blood Cells % 0 %; Platelet Count 203 K/mm3 (142-424); Red Blood Count 5.15 M/mm3 (4.60-6.20); Red Cell Distribution Width-SD 43.0 fL; White Blood Count 11.3 K/mm3 (4.8-10.8)
[2024-11-14 20:56] LABS: VBG HCO3 24.1 mmol/L (23-30); VBG PCO2 61.4 mmol/L (35-51); VBG PH 7.21 mmol/L (7.31-7.41); VBG PO2 33.2 mmol/L (28-40)
[2024-11-14 20:59] LABS: Lactate Venous 4.1 mmol/L (0.4-2.0)
[2024-11-14 21:01] LABS: Albumin Level 4.6 g/dl (3.5-5.0); Chloride 100 mmol/L (98-107)
[2024-11-14 21:02] LABS: Potassium 4.0 mmoL/L (3.5-5.1); Sodium 134 mmol/L (136-145)
[2024-11-14 21:04] LABS: Alanine Aminotransferase 14 U/L (12-78); Albumin/Globulin Ratio 1.4 (1.1-1.8); Alkaline Phosphatase 58 U/L (38-126); Anion Gap 14.0 mEq/L (5-15); Aspartate Amino Transferase 24 U/L (17-59); Bilirubin,Total 0.8 mg/dl (0.2-1.3); Blood Urea Nitrogen 15 mg/dl (9-20); Carbon Dioxide 24 mmol/L (22.0-30.0); Creatinine Clearance Estimated 79 mL/min (50-200); Creatinine,Serum 1.40 mg/dl (0.66-1.25); Estimated Glomerular Filt Rate 53 ml/min (>60); GFR (African American) 65 ML/MIN (>60); Globulin 3.3 g/dL (1.3-3.2); Total Protein,Serum 7.9 g/dl (6.3-8.2)
[2024-11-14 21:05] LABS: Calcium 9.4 mg/dl (8.4-10.2)
[2024-11-14 21:09] LABS: Glucose 483 mg/dl (74-100)
[2024-11-14 21:17] LABS: Troponin I < 0.01 ng/ml (0.00-0.034)
[2024-11-14 21:31] LABS: Microscopic, Urine URINE MICROSCOPIC (MICROSCOPIC)
[2024-11-14 21:33] LABS: Bilirubin,Urine Negative (Negative); Color,Urine YELLOW (Yellow); Glucose,Urine (UA) 3+ (Negative); Ketones,Urine Negative (Negative); Leukocyte Esterase,Urine Negative (Negative); PH,Urine 6.0 (5.0-8.5); Protein,Urine Negative (Negative); Specific Gravity, Urine 1.010 (1.005-1.030); Urobilinogen,Urine 0.2 EU/dl (0.2)
--- NOTE | 2024-11-14 21:42 | XR_ITS ---
PROCEDURE INFORMATION: Exam: XR Chest Exam date and time: 11/14/2024 10:17 PM Age: 49 years old Clinical indication: Other: Hyperglycemia TECHNIQUE: Imaging protocol: Radiologic exam of the chest. Views: 1 view. COMPARISON: CR XR CHEST PORTABLE 09/22/2024 9:57 AM FINDINGS: Lungs: Unremarkable. No consolidation. Pleural spaces: Unremarkable. No pleural effusion. No pneumothorax. Heart/Mediastinum: Unremarkable. No cardiomegaly. Bones/joints: Unremarkable. IMPRESSION: No acute findings.
--- NOTE | 2024-11-14 21:45 | PC.NURSE ---
ED provider at the bedside updating pt on POC
[2024-11-14 21:55] LABS: WBC,Urine Occasional #/hpf (0-3)
[2024-11-14 22:02] LABS: Salicylate < 1.0 mg/dL (2.0-20.0)
[2024-11-14 22:03] LABS: Acetaminophen < 10 ug/ml (10-30)
--- NOTE | 2024-11-14 22:27 | PC.NURSE ---
report given to Kellen ZURITA on [employer]
--- NOTE | 2024-11-14 22:40 | PC.NURSE ---
Patient arrived to floor via wheelchair from ED at 22:38.
[2024-11-14] MEDS: 0.9 % SODIUM CHLORIDE 1000ML 1,000 ML 125 ML IV (23:03)
[2024-11-14] MEDS: RANOLAZINE 500MG ER TABLET 1000 MG PO (23:16)
[2024-11-14] MEDS: TRAZODONE 50MG TABLET 50 MG PO (23:16)
[2024-11-14] MEDS: TOPIRAMATE 25MG TABLET 50 MG PO (23:17)
[2024-11-14] MEDS: OXYCODONE 10MG EXTENDED RELEASE TAB.ER.12H 10 MG PO (23:17)
[2024-11-14] MEDS: PREGABALIN 100MG CAPSULE 200 MG PO (23:18)
[2024-11-14] MEDS: ACETAMINOPHEN 325MG TAB 650 MG PO (23:18)
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
[2024-11-15] VITALS (9 sets, daily range): BP systolic 84–136; BP diastolic 48–71; PULSE 61–71; RESP 16; TEMP 36.4–36.9; O2SAT 97–98; BMI 27.6
[2024-11-15 00:57] LABS: Reflex Lactic Add Lactic Reflex
--- NOTE | 2024-11-15 00:59 | PC.NURSE ---
Patient stated he felt loopy and tired. Patient did receive quit a few medications as requested to provider. Provider and patient discussed medications taken in the ER and what he would like ordered for night time. Yamini BISWAS ordered medications per MAY and administered. When going over medications given, patient stated he only takes trazodone if needed for sleep. Medications were already swallowed. Patient states this was a mix up and apologizes about the confusion. This RN apologized for not being clear on medications given, patient states this was okay that he takes this medication at home. BP 90/50 manually reported to TRUE Kc states patient needs medications adjustments and that is why he is here to get this straight. Glucose 304, Yamini ordered 6 units lispro now one time. Patient is sitting up in bed during this communication eating 2 sandwiches and a bag of chips plus 2 diet mountain dews, as requested.
[2024-11-15 01:03] LABS: Troponin I < 0.01 ng/ml (0.00-0.034)
[2024-11-15] MEDS: humaLOG 100 UNITS/ML 10ML VIAL (SSI) 6 UNIT SUBCUT (01:06)
[2024-11-15 01:12] LABS: Lactic Acid Follow Up (RFLX 1) 0.7 mmol/L (0.7-2.1)
--- NOTE | 2024-11-15 01:35 | PC.NURSE ---
Patient requested a new IV to be placed because he could not comfortably bend his arm, new IV placed in right forearm, Left AC IV removed at this time.
[2024-11-15] MEDS: OXYCODONE 5MG IMMEDIATE RELEASE TABLET 10 MG PO ×5 (03:07→20:04)
[2024-11-15 03:29] LABS: Troponin I < 0.01 ng/ml (0.00-0.034)
--- NOTE | 2024-11-15 03:48 | PC.NURSE ---
Alert and oriented. Complained of back pain, treated per may. No other complaints from patient. Patient has not rested well this shift. Call light in reach. Bed alarm on. Room air.
--- NOTE | 2024-11-15 05:17 | PC.NURSE ---
David notified this RN of BP 86/50 manually. Yamini BISWAS contacted. No new orders. Patient was resting in bed, after woke up, patient ask for something to eat, alert and oriented with no complaints.
[2024-11-15 06:13] LABS: POC Glucose,Bedside 304 gm/dL (70-110)
[2024-11-15] MEDS: humaLOG 100 UNITS/ML 10ML VIAL (SSI) SUBCUT ×3 (06:27→20:05)
[2024-11-15 06:33] LABS: Nucleated Red Blood Cells % 0 %; White Blood Count 8.1 K/mm3 (4.8-10.8)
[2024-11-15 06:36] LABS: Hematocrit 37.3 % (42.0-52.0); Immature Granulocytes % 0.4 %; Mean Corpuscular HGB Conc 34.3 g/dL (31.8-35.4); Mean Corpuscular Hemoglobin 30.0 pg (27.0-31.2); Mean Corpuscular Volume 87.4 fl (80-94); Platelet Count 151 K/mm3 (142-424); Red Blood Count 4.27 M/mm3 (4.60-6.20); Red Cell Distribution Width-SD 43.1 fL
[2024-11-15 06:38] LABS: Hemoglobin 12.8 g/dL (14.1-18.0)
[2024-11-15] MEDS: 0.9 % SODIUM CHLORIDE 1000ML 1,000 ML 125 ML IV (06:49)
[2024-11-15 06:52] LABS: Alanine Aminotransferase 11 U/L (12-78); Albumin Level 3.7 g/dl (3.5-5.0); Albumin/Globulin Ratio 1.4 (1.1-1.8); Alkaline Phosphatase 62 U/L (38-126); Anion Gap 10.7 mEq/L (5-15); Aspartate Amino Transferase 25 U/L (17-59); Bilirubin,Total 0.5 mg/dl (0.2-1.3); Blood Urea Nitrogen 14 mg/dl (9-20); Calcium 8.4 mg/dl (8.4-10.2); Carbon Dioxide 23 mmol/L (22.0-30.0); Chloride 104 mmol/L (98-107); Creatinine Clearance Estimated 97 mL/min (50-200); Creatinine,Serum 1.20 mg/dl (0.66-1.25); Estimated Glomerular Filt Rate 64 ml/min (>60); GFR (African American) 77 ML/MIN (>60); Globulin 2.7 g/dL (1.3-3.2); Glucose 350 mg/dl (74-100); Magnesium 1.6 mg/dl (1.6-2.3); Potassium 3.7 mmoL/L (3.5-5.1); Sodium 134 mmol/L (136-145); Total Protein,Serum 6.4 g/dl (6.3-8.2)
[2024-11-15] MEDS: MAGNESIUM SULFATE IN WATER 2 GM/50 ML PIGGYBACK IV ×2 (09:48→11:00)
[2024-11-15] MEDS: DOCUSATE SODIUM 100 MG CAPSULE PO (09:49)
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
[2024-11-15] MEDS: INSULIN GLARGINE 100 UNITS/ML 3ML FLEXPEN 75 UNIT SUBCUT (11:10)
[2024-11-15 11:22] LABS: POC Glucose,Bedside 246 gm/dL (70-110)
[2024-11-15] MEDS: EMPAGLIFLOZIN 25MG TABLET 25 MG PO (11:23)
[2024-11-15] MEDS: CLOPIDOGREL 75MG TAB 75 MG PO (11:23)
--- NOTE | 2024-11-15 11:37 | HMH.PHAINT1 ---
Pharmacy Intervention Comments: compared med list to fill hx and recent hospital stay/office visit
[2024-11-15] MEDS: PREGABALIN 100MG CAPSULE 200 MG PO ×2 (12:44→20:04)
[2024-11-15 17:20] LABS: POC Glucose,Bedside 201 gm/dL (70-110)
[2024-11-15 19:53] LABS: POC Glucose,Bedside 190 gm/dL (70-110)
[2024-11-15] MEDS: PANTOPRAZOLE 40MG TABLET 40 MG PO (20:04)
[2024-11-15] MEDS: TOPIRAMATE 25MG TABLET 25 MG PO (20:04)
[2024-11-16] VITALS: BP 115/62; PULSE 64; RESP 16; TEMP 36.8; O2SAT 96
[2024-11-16] MEDS: ACETAMINOPHEN 325MG TAB 650 MG PO ×2 (00:06→12:28)
[2024-11-16] MEDS: OXYCODONE 5MG IMMEDIATE RELEASE TABLET 10 MG PO ×4 (00:06→12:28)
[2024-11-16 04:00] VITALS: BP 136/62; PULSE 62; RESP 16; TEMP 36.6; O2SAT 98; BMI 27.6
[2024-11-16 05:49] LABS: POC Glucose,Bedside 129 gm/dL (70-110)
--- NOTE | 2024-11-16 05:49 | PC.NURSE ---
Pt refusing bed alarm. AOx4. On seizure precautions. Pt states that he will call out when he needs to use the restroom or get up out of bed to ensure his safety. Currently resting in bed with eyes open. Respirations even and unlabored. Bed is low, locked, and call light is in reach.
[2024-11-16 06:00] LABS: Hematocrit 39.7 % (42.0-52.0); Hemoglobin 13.1 g/dL (14.1-18.0); Immature Granulocytes % 0.4 %; Mean Corpuscular HGB Conc 33.0 g/dL (31.8-35.4); Mean Corpuscular Hemoglobin 28.8 pg (27.0-31.2); Mean Corpuscular Volume 87.3 fl (80-94); Nucleated Red Blood Cells % 0 %; Platelet Count 147 K/mm3 (142-424); Red Blood Count 4.55 M/mm3 (4.60-6.20); Red Cell Distribution Width-SD 42.5 fL; White Blood Count 8.5 K/mm3 (4.8-10.8)
[2024-11-16 06:08] LABS: Hemoglobin A1C 10.3 % (4.0-6.0)
[2024-11-16 06:10] LABS: Alanine Aminotransferase 9 U/L (12-78); Albumin Level 3.8 g/dl (3.5-5.0); Albumin/Globulin Ratio 1.3 (1.1-1.8); Alkaline Phosphatase 46 U/L (38-126); Anion Gap 9.6 mEq/L (5-15); Aspartate Amino Transferase 15 U/L (17-59); Bilirubin,Total 0.8 mg/dl (0.2-1.3); Blood Urea Nitrogen 13 mg/dl (9-20); Calcium 8.6 mg/dl (8.4-10.2); Carbon Dioxide 27 mmol/L (22.0-30.0); Chloride 105 mmol/L (98-107); Creatinine Clearance Estimated 117 mL/min (50-200); Creatinine,Serum 1.00 mg/dl (0.66-1.25); Estimated Glomerular Filt Rate 79 ml/min (>60); GFR (African American) 95 ML/MIN (>60); Globulin 2.9 g/dL (1.3-3.2); Glucose 113 mg/dl (74-100); Magnesium 1.9 mg/dl (1.6-2.3); Potassium 3.6 mmoL/L (3.5-5.1); Sodium 138 mmol/L (136-145); Total Protein,Serum 6.7 g/dl (6.3-8.2)
[2024-11-16 08:00] VITALS: BP 151/76; PULSE 59; RESP 18; TEMP 36.6; O2SAT 100
[2024-11-16] MEDS: EMPAGLIFLOZIN 25MG TABLET 25 MG PO (08:22)
[2024-11-16] MEDS: CLOPIDOGREL 75MG TAB 75 MG PO (08:22)
[2024-11-16] MEDS: DOCUSATE SODIUM 100 MG CAPSULE PO (08:22)
[2024-11-16] MEDS: PREGABALIN 100MG CAPSULE 200 MG PO ×2 (08:24→12:28)
[2024-11-16] MEDS: IRBESARTAN 75MG TABLET 37.5 MG PO (10:33)
[2024-11-16 10:42] LABS: POC Glucose,Bedside 247 gm/dL (70-110)
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
[2024-11-16] MEDS: humaLOG 100 UNITS/ML 10ML VIAL (SSI) SUBCUT (10:49)
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
[2024-11-16 11:30] VITALS: BP 152/67; PULSE 64; RESP 18; TEMP 37; O2SAT 98
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
--- NOTE | 2024-11-16 12:40 | SW/DCPLANNER ---
Per PT/OT patient is independent and no needs at this time.
--- NOTE | 2024-11-16 13:00 | EXP.CARD.CON ---
History of Present Illness History of Present Illness Consult date: 11/16/24 Consult reason: hypotension Chief complaint: weakness/hypotension History of present illness: 49-year-old white male established patient of our office admitted through the ER on 11/14 with severe symptomatic hyperglycemia and hypotension. We are consulted for the hypotension. Patient has history of LAD stent July of this year. He also has a history of a cryptogenic stroke status post loop recorder implant April of this year, untreated sleep apnea, poorly treated diabetes with A1c greater than 10, recent suicide attempt. I last saw the patient in the office in October and he was doing much better from a mental standpoint. Blood pressure had been low at several office visits but he reported 100?120 systolic at home and declined symptoms or med changes at the time. He presented to the emergency department here on November 14 with orthostasis and systolic blood pressure 80s to 90s with a 20 point drop on standing. He reports at home his blood pressure was low so he was drinking numerous cups of coffee with sugar as well as 15 chocolate candies to try to improve his blood pressure. On arrival glucose was greater than 450. He has been hydrated with corrected glucose and is feeling significantly better. [facility] Disclaimer: The information contained in this section may have been updated after the patient was seen, as this information can be updated by other users. Medical History Seizures, post-traumatic Orthostatic hypotension Encounter for screening for malignant neoplasm of lung Dyspnea on exertion Smoking greater than 30 pack years Pneumonia On mechanically assisted ventilation Drug overdose Depression Anxiety SOB (shortness of breath) Chest pain Abnormal findings on diagnostic imaging of heart and coronary circulation Abnormal nuclear cardiac imaging test History of tonsillitis Diabetes CVA (cerebral vascular accident) Skin induration Deviated septum Right maxillary sinus opacification Headache Chronic sinusitis Right sided facial pain Pain due to onychomycosis of toenail Neuropathy involving both lower extremities Bilateral foot pain Nail fungus Surgical History History of back surgery History of colon resection History of appendectomy History of laparotomy Family History Other Family history of diabetes mellitus Social History Smoking Status: Current every day smoker tobacco type: cigarettes packs per day: 1 alcohol intake: never substance use type: denies use current occupational status: retired Travel in the last 8 weeks?: None caffeine: No Review of Systems Constitutional Constitutional: Reports fatigue and Reports weakness Eyes Eyes: Denies loss of vision ENT Ears, Nose, Mouth, and Throat: Denies hearing loss *Cardiovascular Cardiovascular: Denies chest pain and Denies dyspnea *Respiratory Respiratory: Denies cough and Denies dyspnea *Gastrointestinal Gastrointestinal: Denies change in stool character, Denies nausea and Denies vomiting *Genitourinary Genitourinary: Denies difficulty urinating *Musculoskeletal Musculoskeletal: Denies muscle weakness Integumentary/Breasts Skin/Breast: Denies changing lesions *Neurologic Neurologic: Reports as per HPI, Denies loss of vision and Reports weakness Endocrine Endocrine: Reports fatigue Exam Data for Last 24 hours Vital signs and Labs for Last 24 Hours: Temp Pulse Resp BP Pulse Ox O2 Del Method 98.6 F 64 18 152/67 H 98 Room Air 11/16/24 11:30 11/16/24 11:30 11/16/24 11:30 11/16/24 11:30 11/16/24 11:30 11/16/24 11:30 Laboratory Results - last 24 hr 11/15/24 16:57: POC Glucose 201 H 11/15/24 19:46: POC Glucose 190 H 11/16/24 05:25: WBC 8.5, RBC 4.55 L, Hgb 13.1 L, Hct 39.7 L, MCV 87.3, MCH 28.8, MCHC 33.0, RDW 13.2, Plt Count 147, MPV 10.8 H, Neut % (Auto) 43.5, Lymph % (Auto) 44.2, Norton % (Auto) 7.8, Eos % (Auto) 3.4, Baso % (Auto) 0.7, Neut # (Auto) 3.7, Lymph # (Auto) 3.7, Norton # (Auto) 0.7, Eos # (Auto) 0.3, Baso # (Auto) 0.1, Sodium 138, Potassium 3.6, Chloride 105, Carbon Dioxide 27, Anion Gap 9.6, BUN 13, Creatinine 1.00, Estimated Creat Clear 117, Estimated GFR 79, Est GFR ( Amer) 95 D, Glucose 113 H D, Hemoglobin A1c 10.3 H, Calcium 8.6, Magnesium 1.9 D, Total Bilirubin 0.8, AST 15 L D, ALT 9 L, Alkaline Phosphatase 46, Total Protein 6.7, Albumin 3.8, Globulin 2.9, Albumin/Globulin Ratio 1.3 11/16/24 05:41: POC Glucose 129 H 11/16/24 10:35: POC Glucose 247 H I & O for Last 24 hours: Intake & Output 11/13/24 11/14/24 11/15/24 11/16/24 23:59 23:59 23:59 23:59 Intake Total 1000 / 1320 2570.000 / 2570.000 740 / 740 Output Total 0 / 0 0 / 0 Balance 1000 / 1320 2570.000 / 2570.000 740 / 740 Weight 208 lb 208 lb 208 lb 7 oz Microbiology Reports for the Last 24 Hours: Microbiology 11/14/24 21:27 Urine,Clean Catch Urine Culture - Final No growth. Constitutional Constitutional: no acute distress and cooperative *Routine HEENT Exam Eye: Present PERRL *Routine Respiratory Exam Respiratory: Present CTA bilaterally; Absent accessory muscle use, wheezes or crackles *Routine Cardiovascular Exam Cardiovascular: Present RRR, Normal S1 and Normal S2; Absent murmur, gallop or rubs *Routine Abdominal Exam Abdominal: Present soft; Absent tenderness *Routine Extremities Exam Extremities: Present pulses intact; Absent cyanosis or edema *Routine Skin Exam Skin: Present intact; Absent erythema or wounds *Routine Neurological Exam Neurological: Present alert and oriented X3 Routine Psychiatric Exam Psychiatric: Present cooperative Meds Home Medications and Allergies Home Medications ?Medication ?Instructions ?Recorded ?Confirmed ?Type levetiracetam 750 mg tablet 1,500 mg PO BID Seizures 08/15/22 11/14/24 History lorazepam 1 mg tablet 1 mg PO TID Seizures 08/15/22 11/14/24 History rosuvastatin 10 mg tablet 10 mg PO DAILY Cholesterol 08/15/22 11/14/24 History topiramate 25 mg tablet 25 mg PO HS Headache prevention 08/15/22 11/14/24 History insulin glargine 100 unit/mL 90 unit SQ BID 04/14/23 11/14/24 History subcutaneous solution (Lantus U-100 Insulin) clopidogrel 75 mg tablet (Plavix) 75 mg PO DAILY 05/06/23 11/14/24 History fenofibrate nanocrystallized 48 mg 48 mg PO HS 05/06/23 11/14/24 History tablet folic acid 400 mcg tablet 400 mg PO DAILY 05/06/23 11/14/24 History insulin aspart U-100 100 unit/mL 1 sliding scale dose SQ AC 05/06/23 11/15/24 History subcutaneous solution (Novolog U-100 Insulin aspart) insulin syringe-needle U-100 1 mL #10 ea 05/06/23 11/14/24 History 31 gauge x 5/16 (BD Insulin Syringe Ultra-Fine) potassium chloride 10 mEq 10 meq PO DAILY 05/06/23 11/14/24 History capsule,extended release trazodone 50 mg tablet 50 mg PO HS PRN Sleep 05/06/23 11/14/24 History calcitriol 0.25 mcg capsule 0.25 mcg PO MOWEFR 03/24/24 11/14/24 History empagliflozin 25 mg tablet 25 mg PO DAILY 03/24/24 11/14/24 History (Jardiance) blood-glucose sensor (FreeStyle #1 ea 07/26/24 11/14/24 History Eugenie 3 Sensor device) flash glucose scanning reader #1 ea 07/26/24 11/14/24 History (FreeStyle Eugenie 2 Murphy) isosorbide mononitrate 60 mg 60 mg PO DAILY #90 tabs 08/23/24 11/14/24 Rx tablet,extended release 24 hr Held on 11/16/24. Instructions: Pending further instruction from cardiology oxycodone 10 mg tablet 10 mg PO Q4HP Moderate Pain (Scale 08/23/24 11/14/24 History Score 7/10) blood pressure monitor (Blood #1 ea 09/16/24 11/14/24 Rx Pressure Kit) ranolazine 1,000 mg 1,000 mg PO BID #60 tabs 09/16/24 11/14/24 Rx tablet,extended release,12 hr Held on 11/16/24. Instructions: Pending further instruction from cardiology pregabalin 200 mg capsule 200 mg PO TID 11/01/24 11/14/24 History baclofen 10 mg tablet 10 mg PO Q6 PRN Pain (Scale Score 11/14/24 11/14/24 History 4-6) duloxetine 30 mg capsule,delayed 30 mg PO DAILY 11/14/24 11/14/24 History release metoprolol succinate 100 mg 100 mg PO DAILY 11/14/24 11/14/24 History tablet,extended release 24 hr Held on 11/16/24. Instructions: Pending further instruction from cardiology losartan 50 mg tablet 25 mg (1/2 x 50 mg) PO DAILY 11/16/24 11/14/24 Rx Hypertension 30 days #0 tabs New Prescriptions to Start Prescriptions: Allergies Allergy/AdvReac Type Severity Reaction Status Date / Time aspirin Allergy Severe Anaphylaxis Verified 11/01/24 10:18 ibuprofen (From Motrin) Allergy Severe Anaphylaxis Verified 11/01/24 10:18 naproxen (From Aleve) Allergy Severe Anaphylaxis Verified 11/01/24 10:18 NSAIDS (Non-Steroidal Allergy Severe Anaphylaxis Verified 11/01/24 10:18 Anti-Inflamma bee venom protein (honey bee) Allergy Anaphylaxis Verified 11/01/24 10:18 metoclopramide (From Reglan) AdvReac Intermediate Agitated Verified 11/01/24 10:18 midazolam (From Versed) AdvReac Verified 11/01/24 10:18 Assessment and Plan *Assessment and plan (1) Orthostatic hypotension: Status: Acute Category: Medical Code(s): I95.1 - Orthostatic hypotension (2) Hyperglycemia: Status: Acute Category: Medical Code(s): R73.9 - Hyperglycemia, unspecified Plan Orthostatic Hypotension - significant decline in BP recently following LAD stent and weight loss - BP was 80s systolic and pos orthostatic vitals - improved while holding meds, hydrating, and correction insulin - DC Metoprolol. Resume Losartan 25mg daily Severe Hyperglycemia - A1C 10 at baseline - day of arrival was consuming heavy sugar (3 cups coffee with sugar and chocolate candies) to try and elevate his BP - meds/plan per hospitalist CAD s/p LAD stent 07/2024 - CCS = 0 - cont Plavix, Statin Hx of CVA s/p implanted loop recorder - no neuro deficits - cont plavix and statin CV stable for DC home with adjustments as noted above.
--- NOTE | 2024-11-17 10:18 | SW/DCPLANNER ---
Spoke with patient on the phone. Patient stated that he is doing good. Patient stated that he is aware of his upcoming appointments. Patient stated that he was not prescribed any new medicine. Patient stated that he has no concerns or questions at this time. Steff Hand
[2024-11-21 09:14] LABS: POC Glucose,Bedside 396 gm/dL (70-110)
== END 2024-11-16 13:30 | disposition home or self-care (01) ==
LOC: ER 21:55 → 2ND 22:31
PROVIDERS: Internal Medicine Adolescent Medicine; Nurse Practitioner Family; Admitting Provider Student in an Organized Health Care Education/Training Program; Emergency Provider Student in an Organized Health Care Education/Training Program; PCP Nurse Practitioner; Visit Provider Student in an Organized Health Care Education/Training Program
DX: E11.65 Type 2 diabetes mellitus with hyperglycemia (principal); E11.21 Type 2 diabetes mellitus with diabetic nephropathy; E11.42 Type 2 diabetes mellitus with diabetic polyneuropathy; N17.9 Acute kidney failure, unspecified; I95.1 Orthostatic hypotension; G89.4 Chronic pain syndrome; L84 Corns and callosities; E86.0 Dehydration; I25.10 Atherosclerotic heart disease of native coronary artery without angina pectoris; I10 Essential (primary) hypertension; F41.9 Anxiety disorder, unspecified; F32.A Depression, unspecified; E78.5 Hyperlipidemia, unspecified; G40.909 Epilepsy, unspecified, not intractable, without status epilepticus; F17.210 Nicotine dependence, cigarettes, uncomplicated; Z95.5 Presence of coronary angioplasty implant and graft; Z86.73 Personal history of transient ischemic attack (TIA), and cerebral infarction without residual deficits; Z83.3 Family history of diabetes mellitus; Z88.8 Allergy status to other drugs, medicaments and biological substances; Z79.4 Long term (current) use of insulin; Z88.6 Allergy status to analgesic agent; Z91.030 Bee allergy status; Z79.899 Other long term (current) drug therapy; Z79.02 Long term (current) use of antithrombotics/antiplatelets; Z79.891 Long term (current) use of opiate analgesic
CPT/HCPCS: 96361 ×2; 96365; 96366; 36415; 71045; 80053; 80329; 81001; 82803; 82962; 83036; 83605; 83735; 84484; 85025; 87086; 93005; 97162; 97166; 99284; G0378; J1650; J3475; J7030; J7120

== ENCOUNTER 2024-11-17 15:22 | Emergency (ER) | payer MEDICARE, MEDICAID, SELFPAY ==
--- OUTSIDE RECORDS SUMMARY | 2011-02-15 15:00 | XMS_ITS | Encounter Summary ---
Author Organization [facility] Address [address], [address] [place] [address] Care Team Providers Care Engineering Laboratory Technician Name Role Phone Mary Ann Henson MD Primary Care Provider Pato humphrey Encounter Details Date Type Department Care Team (Late st Contact Info) Description 02/15/2011 2:00 PM EST Hospital Encounter [facility] [address] [place] [address] Social History Tobacco Use Types Packs/Day Years [...] documented as of this encounter Care Teams Engineering Laboratory Technician Relationship Specialty Start Date End Date Mary Ann Henson MD PCP - General Family Medicine 11/26/10 03/13/13 documented as of this encounter
--- OUTSIDE RECORDS SUMMARY | 2011-02-18 15:00 | XMS_ITS | Encounter Summary ---
Author Organization [facility] Address [address], [address] [place] [address] Care Team Providers Care Anode Adjuster Name Role Phone Mary Ann Henson MD Primary Care Provider Pato humphrey Encounter Details Date Type Department Care Team (Late st Contact Info) Description 02/18/2011 2:00 PM EST Hospital Encounter [facility] [address] [place] [address] Social History Tobacco Use Types Packs/Day Years [...] documented as of this encounter Care Teams Anode Adjuster Relationship Specialty Start Date End Date Mary Ann Henson MD PCP - General Family Medicine 11/26/10 03/13/13 documented as of this encounter
--- OUTSIDE RECORDS SUMMARY | 2011-02-22 15:00 | XMS_ITS | Encounter Summary ---
Author Organization [facility] Address [address], [address] [place] [address] Care Team Providers Care Neonatal Intensive Care Unit Nurse Name Role Phone Mary Ann Henson MD Primary Care Provider Pato humphrey Encounter Details Date Type Department Care Team (Late st Contact Info) Description 02/22/2011 2:00 PM EST Hospital Encounter [facility] [address] [place] [address] Social History Tobacco Use Types Packs/Day Years [...] documented as of this encounter Care Teams Neonatal Intensive Care Unit Nurse Relationship Specialty Start Date End Date Mary Ann Henson MD PCP - General Family Medicine 11/26/10 03/13/13 documented as of this encounter
--- OUTSIDE RECORDS SUMMARY | 2011-02-25 15:00 | XMS_ITS | Encounter Summary ---
Author Organization [facility] Address [address], [address] [place] [address] Care Team Providers Care Automotive Engineering Technician Name Role Phone Mary Ann Henson MD Primary Care Provider Pato humphrey Encounter Details Date Type Department Care Team (Late st Contact Info) Description 02/25/2011 2:00 PM EST Hospital Encounter [facility] [address] [place] [address] Social History Tobacco Use Types Packs/Day Years [...] Name: Kingsley Braulio Hernandez : 1975 Date: 02/25/2011 Cancels to [...] documented as of this encounter Care Teams Automotive Engineering Technician Relationship Specialty Start Date End Date Mary Ann Henson MD PCP - General Family Medicine 11/26/10 03/13/13 documented as of this encounter
--- OUTSIDE RECORDS SUMMARY | 2011-03-01 15:00 | XMS_ITS | Encounter Summary ---
Author Organization [facility] Address [address], [address] [place] [address] Care Team Providers Care Commercial Sales Manager Name Role Phone Mary Ann Henson MD Primary Care Provider Pato humphrey Encounter Details Date Type Department Care Team (Late st Contact Info) Description 03/01/2011 2:00 PM EST Hospital Encounter [facility] [address] [place] [address] Social History Tobacco Use Types Packs/Day Years [...] documented as of this encounter Care Teams Commercial Sales Manager Relationship Specialty Start Date End Date Mary Ann Henson MD PCP - General Family Medicine 11/26/10 03/13/13 documented as of this encounter
[2024-11-17 15:30] VITALS: BP 151/80; PULSE 106; RESP 18; TEMP 36.9; O2SAT 98; BMI 26.7
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
[2024-11-17 15:47] VITALS: PULSE 98; O2SAT 99
[2024-11-17 16:15] VITALS: PULSE 98; O2SAT 98
--- OUTSIDE RECORDS SUMMARY | 2024-11-17 16:21 | XMS_ITS | Encounter Summary ---
Author Organization Healthcare Address [address] [place] [address] Care Team Providers Care Caustic Plant Worker Name Role Phone Shamika Roy APRN Primary Care Provider [phone] Encounter Details Date Type Department Care Team (Late st Contact Info) Description 05/22/2023 Orders Only External Location [address] [place] [address] Provider, External Social History Tobacco Use Types [...] on filedocumented in this encounter Care Teams Caustic Plant Worker Relationship Specialty Start Date End Date Shamika Roy APRN [address] [place] [id number] PCP - General 09/08/23 documented as of this encounter
--- OUTSIDE RECORDS SUMMARY | 2024-11-17 16:21 | XMS_ITS | Referral Summary ---
Author Organization [facility] Address [facility] [place] [address] Care Team Providers Care Clinical Staff Educator Name Role Phone Pcp, None MD Primary Care Provider [phone] Allergies Active Allergy Reactions Criticality Noted Date [...] by mouth daily. 7 tablet 8 Active Pkkwvgmswh-LT-Y angela Polysacch (ALCORTIN A) 1-2-1 % GEL Apply topically daily. 48 g 5 8 Active atorvastatin (LIPITOR) 80 MG TABS Take 1 tablet by mouth daily. 90 tablet 1 9 Active vitamin D-2 (ERGOCALCIFEROL ) 21859 UNIT CAPS Take 1 capsule by mouth [...] of Treatment Not on file Care Teams Clinical Staff Educator Relationship Specialty Start Date End Date Pcp, Trice, PCP - General Internal Medicine 07/14/18
--- OUTSIDE RECORDS SUMMARY | 2024-11-17 16:21 | XMS_ITS | Encounter Summary ---
Author Organization Healthcare Address [address] [place] [address] Care Team Providers Care Mergers And Acquisitions Manager Name Role Phone Shamika Roy APRN Primary Care Provider [phone] Encounter Details Date Type Department Care Team (Late st Contact Info) Description 12/03/2023 Orders Only External Location [address] [place] [address] Mikey Hernandez MD [address] [place], [place] [id number] Social History Tobacco Use Types Packs/Day Years [...] place to sleep or slept in a detention (including now)? No 09/08/2023 Utilities Answer Date [...] documented as of this encounter Care Teams Mergers And Acquisitions Manager Relationship Specialty Start Date End Date Shamika Roy APRN [address] [place] [address] PCP - General 09/08/23 documented as of this encounter
--- OUTSIDE RECORDS SUMMARY | 2024-11-17 16:21 | XMS_ITS | Encounter Summary ---
Author Organization Healthcare Address [address] [place] [address] Care Team Providers Care Dry Sander Name Role Phone Shamika Roy APRN Primary Care Provider [phone] Encounter Details Date Type Department Care Team (Late st Contact Info) Description 06/03/2023 Orders Only External Location [address] [place] [address] Provider, External Social History Tobacco Use Types [...] on filedocumented in this encounter Care Teams Dry Sander Relationship Specialty Start Date End Date Shamika Roy APRN [address] [place] [id number] PCP - General 09/08/23 documented as of this encounter
--- OUTSIDE RECORDS SUMMARY | 2024-11-17 16:21 | XMS_ITS | Clinical Summary ---
Author Organization [facility] Address [facility] [place] [address] Care Team Providers Care Tavern Keeper Name Role Phone Pcp, None MD Primary Care Provider [phone] Allergies Active Allergy Reactions Criticality Noted Date [...] by mouth daily. 7 tablet 8 Active Upamlhuxds-NE-E angela Polysacch (ALCORTIN A) 1-2-1 % GEL Apply topically daily. 48 g 5 8 Active atorvastatin (LIPITOR) 80 MG TABS Take 1 tablet by mouth daily. 90 tablet 1 9 Active vitamin D-2 (ERGOCALCIFEROL ) 27513 UNIT CAPS Take 1 capsule by mouth [...] age to complete this topic Care Teams Tavern Keeper Relationship Specialty Start Date End Date Pcp, MD Trice PCP - General Internal Medicine 07/14/18
--- OUTSIDE RECORDS SUMMARY | 2024-11-17 16:21 | XMS_ITS | Encounter Summary ---
Author Organization Healthcare Address [address] [place] [address] Care Team Providers Care Wide Area Network Engineer Name Role Phone Shamika Roy APRN Primary Care Provider [phone] Encounter Details Date Type Department Care Team (Late st Contact Info) Description 12/03/2023 Orders Only External Location [address] [place] [address] Mikey Hernandez MD [address] [place], [place] [phone] Social History Tobacco Use Types Packs/Day Years [...] to sleep or slept in a senior living (including now)? No 09/08/2023 Utilities Answer Date [...] documented as of this encounter Care Teams Wide Area Network Engineer Relationship Specialty Start Date End Date Shamika Roy APRN [address] [place] [address] PCP - General 09/08/23 documented as of this encounter
--- OUTSIDE RECORDS SUMMARY | 2024-11-17 16:21 | XMS_ITS | Clinical Summary ---
Author Organization [facility] Address [address] [place] [address] Care Team Providers Care Rumper Name Role Phone Shamika Roy APRN Primary Care Provider [phone] Allergies Active Allergy Reactions Criticality Noted Date [...] Type Department Care Team Description 09/14/2024 Telephone [facility] Inpatient Psychiatry [address] [place] [address] Linda Pepe 09/13/2024 Telephone [facility] Inpatient Psychiatry [address] [place] [address] Linda Pepe 09/09/2024 7:40 AM EDT - 09/10/2024 10:41 AM EDT Hospital Encounter [facility] Inpatient Psychiatry [address] [place] [address] Jose Alberto Quiroga MD Potter, Samuel J, MD Suicide attempt ([facility]) (Primary Dx) Discharge Disposition: Home or Self Care 09/09/2024 Plan of Care Documentation [facility] Inpatient Psychiatry [address] [place] [address] 09/09/2024 Travel from Last 3 [...] Never 09/09/2024 How often do you attend [facility] or adventism services? Never 09/09/2024 Do you belong to any clubs o r organizations such as yazidi groups, unions, fraternal or athletic groups, or [...] more drinks on one occasion? Never 09/09/2024 [facility] [place] [facility] - Occupational Stress [...] any time in the past 12 m [facility], were you homeless or living in a intermediate (including now)? No 09/09/2024 Utilities Answer Date [...] Completed 09/07/2023 [facility]-Hepatitis C Screening Completed 09/07/2023, [id number] Vaccine Completed 01/09/2024, 12/14/19 23 [facility]-Obesity Intervention [...] - 99 mg/dL 09/10/2024 8:00 AM EDT [facility] Comment:Accuracy of a glucos e result [...] Comment 09/10/2024 8:00 AM EDT [facility] Industrial Analyst ID Tri Alba [id number] 8:00 AM EDT [facility] Device ID [id number] 09/10/2024 8:00 AM EDT [facility] Specimen Type POC Capillary 09/10/2024 8:00 AM EDT [facility] Blood Capillary blood specimen / Unknown 09/10/2024 7:59 AM EDT 09/10/2024 8:00 AM EDT us Vicente Del Valle MD LAB POINT OF CARE TE ST DOCKED DEVICE UNSOLICITED RESULTS Final Result [facility] [address] [place] [id number] * (ABNORMAL) OXYCODONE CONFIRMATION,URINE (09/09/2024 2:25 PM EDT) Oxycodone 659(H) <50 ng/mL 09/12/2024 10:11 PM EDT [facility] Oxymorphone <50 <50 ng/mL 09/12/2024 10:11 PM EDT [facility] Oxymorphone Glucuronide >1,000(H) <50 ng/mL 09/12/2024 10:11 PM EDT [facility] Urine Urine specimen obtained by clean catch procedure / Unknown 09/09/2024 2:25 PM EDT 09/09/2024 4:04 PM EDT Narrative [facility] - 09/12/2024 10:11 PM EDT Test performed by LC-MS/MS at the [facility]. This test was developed and its performance characteristics determined by [facility]. It has not been cleared or approved by the FDA. The laboratory is regulated under CLIA as qualified to perform high-complexity testing. This test is used for clinical purposes. us Vicente Del Valle MD LAB URINE ORDERABLES Final Re sult [facility] [address] [place] [address] * Drug abuse screen (09/09/2024 2:25 PM EDT) Amphetamine Screen Urine Negative Cutoff: 500 ng/mL 09/09/2024 4:23 PM EDT [facility] Benzodiazepines Screen Urine Presumptive positive. Confirmation by LC-MS/MS to follow. Cutoff: 200 ng/mL 09/09/2024 4:23 PM EDT [facility] Cannabinoid Screen Urine Negative Cutoff: 50 ng/mL 09/09/2024 4:23 PM EDT [facility] Cocaine Screen Urine Negative Cutoff: 300 ng/mL 09/09/2024 4:23 PM EDT [facility] Barbiturate Screen Urine Negative Cutoff: 200 ng/mL 09/09/2024 4:23 PM EDT [facility] Opiate Screen Urine Negative Cutoff: 300 ng/mL 09/09/2024 4:23 PM EDT [facility] Methadone Screen Urine Negative Cutoff: 300 ng/mL 09/09/2024 4:23 PM EDT [facility] Buprenorphine Screen Urine Negative Cutoff: 10 ng/mL 09/09/2024 4:23 PM EDT [facility] Fentanyl Screen Urine Negative Cutoff: 1 ng/mL 09/09/2024 4:23 PM EDT [facility] Oxycodone Screen Urine Presumptive positive. Confirmation by LC-MS/MS to follow. Cutoff: 100 ng/mL 09/09/2024 4:23 PM EDT [facility] Urine Urine specimen obtained by clean catch procedure / Unknown 09/09/2024 2:25 PM EDT 09/09/2024 4:04 PM EDT us Vicente Del Valle MD LAB URINE ORDERABLES Final Re sult [facility] [address] [place] [id number] * (ABNORMAL) Benzodiazepine Confirm Urine (09/09/2024 2:25 PM EDT) [facility] [place] Alprazolam <20 <20 ng/mL 09/12 10:10 PM EDT [facility] [place] Midazolam <20 <20 ng/mL 2024 10:10 PM EDT [facility] [place] Triazolam <20 <20 ng/mL 2024 10:10 PM EDT [facility] Alprazolam <10 <10 ng/mL 09/12/2024 10:10 PM EDT [facility] Aminoclonazepam <20 <20 ng/mL 10:10 PM EDT [facility] Clonazepam <10 <10 ng/mL 09/12/2024 10:10 PM EDT [facility] Diazepam <10 <10 ng/mL 09/12/2024 10:10 PM EDT [facility] Lorazepam <20 <20 ng/mL 09/12/2024 10:10 PM EDT [facility] Lorazepam Glucuronide >1,000(H) <50 ng/mL 09/12/2024 10:10 PM EDT [facility] Midazolam <20 <20 ng/mL 09/12/2024 10:10 PM EDT [facility] Nordiazepam <20 <20 ng/mL 09/12/2024 10:10 PM EDT [facility] Oxazepam <20 <20 ng/mL 09/12/2024 10:10 PM EDT [facility] Oxazepam Glucuronide <50 <50 ng/mL 09/12/2024 10:10 PM EDT [facility] Temazepam <20 <20 ng/mL 09/12/2024 10:10 PM EDT [facility] Temazepam Glucuronide <50 <50 ng/mL 09/12/2024 10:10 PM EDT [facility] Triazolam <20 <20 ng/mL 09/12/2024 10:10 PM EDT [facility] Urine Urine specimen obtained by clean catch procedure / Unknown 09/09/2024 2:25 PM EDT 09/09/2024 4:04 PM EDT Narrative [facility] - 09/12/2024 10:10 PM EDT Drug analysis is confirmed by LC-MS/MS (LC Tandem Mass Spectrometry) on Urine specimens. This test was developed and its performance characteristics determined by [facility]. It has not been cleared or approved by the FDA. The laboratory is regulated under CLIA as qualified to perform high-complexity testing. This test is used for clinical purposes. Testing is performed at the [facility]. us Vicente Del Valle MD LAB URINE ORDERABLES Final Re sult [facility] [address] [place] [address] * (ABNORMAL) Urinalysis with reflex microscopic (Culture NOT Included) (09/09/2024 2:25 PM EDT) Color, Urine Yellow LAB URINALYSIS - AUTOMATED METHOD 09/09/2024 4:07 PM EDT [facility] Clarity, Urine Clear LAB URINALYSIS - AUTOMATED METHOD 09/09/2024 4:07 PM EDT [facility] Spec Br[place], Urine >1.030(H) 1.005 - 1.030 LAB URINALYSIS - AUTOMATED METHOD 09/09/2024 4:07 PM EDT [facility] pH, Urine 6.0 5.0 - 8.0 LAB URINALYSIS - AUTOMATED METHOD 09/09/2024 4:07 PM EDT [facility] Protein, Urine Trace(A) Negative mg/dL LAB URINALYSIS - AUTOMATED METHOD 09/09/2024 4:07 PM EDT [facility] Glucose, Urine >=1000(A) Negative mg/dL LAB URINALYSIS - AUTOMATED METHOD 09/09/2024 4:07 PM EDT [facility] Ketones, Urine Negative Negative mg/dL LAB URINALYSIS - AUTOMATED METHOD 09/09/2024 4:07 PM EDT [facility] Blood, Urine Negative Negative LAB URINALYSIS - AUTOMATED METHOD 09/09/2024 4:07 PM EDT [facility] Bilirubin, Urine Negative Negative LAB URINALYSIS - AUTOMATED METHOD 09/09/2024 4:07 PM EDT [facility] Urobilinogen, Urine 1.0 0.2 to 1.0 mg/dL LAB URINALYSIS - AUTOMATED METHOD 09/09/2024 4:07 PM EDT [facility] Leukocytes, Urine Negative Negative LAB URINALYSIS - AUTOMATED METHOD 09/09/2024 4:07 PM EDT [facility] Nitrite, Urine Negative Negative LAB URINALYSIS - AUTOMATED METHOD 09/09/2024 4:07 PM EDT [facility] Urine Urine specimen obtained by clean catch procedure / Unknown 09/09/2024 2:25 PM EDT 09/09/2024 4:04 PM EDT us Vicente Del Valle MD LAB URINE ORDERABLES Final Re sult [facility] [address] [place] [address] * (ABNORMAL) CBC w/diff (09/09/2024 9:57 AM EDT) WBC Count 11.41(H) 3.70 - 10.30 10*3/uL LAB HEMATOLOGY METHOD 09/09/2024 12:35 PM EDT [facility] RBC Count 5.13 4.60 - 6.10 10*6/uL LAB HEMATOLOGY METHOD 09/09/2024 12:35 PM EDT [facility] HGB 15.1 13.7 - 17.5 g/dL LAB HEMATOLOGY METHOD 09/09/2024 12:35 PM EDT [facility] HCT 45.3 40.0 - 51.0 % LAB HEMATOLOGY METHOD 09/09/2024 12:35 PM EDT [facility] Platelet Count 172 155 - 369 10*3/uL LAB HEMATOLOGY METHOD 09/09/2024 12:35 PM EDT [facility] MCV 88 79 - 98 fL LAB HEMATOLOGY METHOD 09/09/2024 12:35 PM EDT [facility] MCH 29.4 26.0 - 32.0 pg LAB HEMATOLOGY METHOD 09/09/2024 12:35 PM EDT [facility] MCHC 33.3 30.7 - 35.5 g/dL LAB HEMATOLOGY METHOD 09/09/2024 12:35 PM EDT [facility] RDW 12.9 11.5 - 14.5 % LAB HEMATOLOGY METHOD 09/09/2024 12:35 PM EDT [facility] MPV 10.9 8.8 - 12.5 fL LAB HEMATOLOGY METHOD 09/09/2024 12:35 PM EDT [facility] nRBC 0.0 <=0.0 per 100 WBCs LAB HEMATOLOGY METHOD 09/09/2024 12:35 PM EDT [facility] Differential Type Automated LAB HEMATOLOGY METHOD 09/09/2024 12:35 PM EDT [facility] Neutrophils % 60 % LAB HEMATOLOGY METHOD 09/09/2024 12:35 PM EDT [facility] Lymphocytes % 27 % LAB HEMATOLOGY METHOD 09/09/2024 12:35 PM EDT [facility] Monocytes % 9 % LAB HEMATOLOGY METHOD 09/09/2024 12:35 PM EDT [facility] Eosinophils % 3 % LAB HEMATOLOGY METHOD 09/09/2024 12:35 PM EDT [facility] Basophils % 1 % LAB HEMATOLOGY METHOD 09/09/2024 12:35 PM EDT [facility] Immature Granulocytes % 0 % LAB HEMATOLOGY METHOD 09/09/2024 12:35 PM EDT [facility] Neutrophils Absolute 6.99(H) 1.60 - 6.10 10*3/uL LAB HEMATOLOGY METHOD 09/09/2024 12:35 PM EDT [facility] Lymphocytes Absolute 3.03 1.20 - 3.90 10*3/uL LAB HEMATOLOGY METHOD 09/09/2024 12:35 PM EDT [facility] Monocytes Absolute 0.99(H) 0.30 - 0.90 10*3/uL LAB HEMATOLOGY METHOD 09/09/2024 12:35 PM EDT [facility] Eosinophils Absolute 0.30 0.00 - 0.50 10*3/uL LAB HEMATOLOGY METHOD 09/09/2024 12:35 PM EDT [facility] Basophils Absolute 0.07 0.00 - 0.10 10*3/uL LAB HEMATOLOGY METHOD 09/09/2024 12:35 PM EDT [facility] Immature Granulocytes Absolute 0.03 0.00 - 0.06 10*3/uL LAB HEMATOLOGY METHOD 09/09/2024 12:35 PM EDT [facility] Blood Venous blood specimen / Unknown Venipuncture / Unknown 09/09/2024 9:57 AM EDT 09/09/2024 9:57 AM EDT Narrative [facility] - 09/09/2024 12:35 PM EDT Therapeutic decision making should be based on absolute values, rather than percentages. Jose Alberto Quiroga MD LAB BLOOD ORDERABLES Final Result Performing Organization Address City/[facility] Co de Phone Number [facility] [address] [place] [address] * Thyroid Stimulating Hormone, Plasma (09/09/2024 9:57 AM EDT) Thyroid Stimulating Hormone, Plasma 1.42 0.40 - 4.20 uIU/mL 09/09/2024 12:47 PM EDT [facility] Blood Venous blood specimen / Unknown Venipuncture / Unknown 09/09/2024 9:57 AM EDT 09/09/2024 9:57 AM EDT Jose Alberto Quiroga MD LAB BLOOD ORDERABLES Final Result Performing Organization Address City/[facility]/ZIP Co de Phone Number [facility] [address] [place] [address] * Free T4, Plasma (09/09/2024 9:57 AM EDT) Free T4, Plasma 1.3 0.8 - 1.7 ng/dL 09/09/2024 12:47 PM EDT [facility] Blood Venous blood specimen / Unknown Venipuncture / Unknown 09/09/2024 9:57 AM EDT 09/09/2024 9:57 AM EDT Jose Alberto Quiroga MD LAB BLOOD ORDERABLES Final Result [facility] [address] [place] [address] * (ABNORMAL) Hemoglobin A1c (09/09/2024 9:57 AM EDT) Hemoglobin A1c 10.7(H) <5.7 % 09/09/2024 1:22 PM EDT [facility] Blood Venous blood specimen / Unknown Venipuncture / Unknown 09/09/2024 9:57 AM EDT 09/09/2024 9:57 AM EDT Narrative [facility] - 09/09/2024 1:22 PM EDT HA1C Interpretive Data: Diagnosis of Diabetes: Diabetic > or = 6.5% Pre-diabetic 5.7 to 6.4% Non-diabetic < or = 5.6% Glycemic Targets for Type I and Type II Diabetics: Non- Adults <7.0% Adults <6.0% Children and Adolescents <7.5% Source: [place] [employer]. Standards of medical care in diabetes,2017. Diabetes Care.2017:40 (suppl 1):S1-S135. Jose Alberto Quiroga MD LAB BLOOD ORDERABLES Final Result [facility] [address] [place] [address] * (ABNORMAL) Lipid panel (09/09/2024 9:57 AM EDT) Cholesterol, Plasma 90 <200 mg/dL 09/09/2024 1:59 PM EDT [facility] Comment: Cholesterol Reference Range (age >17 years): Desirable <200 mg/dL Borderline 200 to 239 mg/dL Undesirable >239 mg/dL HDL 28(L) >=40 mg/dL 09/09/2024 1:59 PM EDT [facility] Comment: HDL Cholesterol Reference Ranges (age >17 years): Female, acceptable > or = 50 mg/dL Male, acceptable > or = 40 mg/dL Triglycerides, Plasma 185(H) <150 mg/dL 09/09/2024 1:59 PM EDT [facility] Comment: Triglyceride Reference Range (age >17 years): Desirable: <150 mg/dL Borderline high: 150 to 199 mg/dL High: 200 to 499 mg/dL Very high: >499 mg/dL Increased risk of pancreatitis: >1000 mg/dL Cholesterol/HDL Ratio 3 09/09/2024 1:59 PM EDT [facility] LDL, Calculated 32 <100 mg/dL 1:59 PM EDT [facility] Comment: LDL Cholesterol Reference Range (age [...] 12 hours? Unknown 09/09/2024 1:59 PM EDT [facility] Blood Venous blood specimen / Unknown Venipuncture / Unknown 09/09/2024 9:57 AM EDT 09/09/2024 9:57 AM EDT us Vicente Del Valle MD LAB BLOOD ORDERABLES Final Re sult [facility] [address] [place] [address] * (ABNORMAL) CMP (09/09/2024 9:57 AM EDT) Glucose, Plasma 109(H) 74 - 99 mg/dL 09/09/2024 12:47 PM EDT [facility] BUN, Plasma 13 7 - 21 mg/dL 09/09/2024 12:47 PM EDT [facility] Creatinine, Plasma 0.99 0.70 - 1.20 mg/dL 09/09/2024 12:47 PM EDT [facility] BUN/Creatinine Ratio 13 09/09/2024 12:47 PM EDT [facility] Sodium, Plasma 138 136 - 145 mmol/L 09/09/2024 12:47 PM EDT [facility] Potassium, Plasma 4.1 3.6 - 4.9 mmol/L 09/09/2024 12:47 PM EDT [facility] Chloride, Plasma 104 97 - 107 mmol/L 09/09/2024 12:47 PM EDT [facility] CO2, Plasma 22 22 - 29 mmol/L 09/09/2024 12:47 PM EDT [facility] Anion Gap 12 6 - 16 mmol/L 09/09/2024 12:47 PM EDT [facility] Total Calcium, Plasma 9.0 8.9 - 10.2 mg/dL 09/09/2024 12:47 PM EDT [facility] Total Protein 7.3 6.3 - 7.9 g/dL 09/09/2024 12:47 PM EDT [facility] Albumin, Plasma 4.1 3.5 - 5.2 g/dL 09/09/2024 12:47 PM EDT [facility] AST, Plasma 18 10 - 50 U/L 09/09/2024 12:47 PM EDT [facility] ALT, Plasma 10 10 - 50 U/L 09/09/2024 12:47 PM EDT [facility] Alkaline Phosphatase, Plasma 56 40 - 115 U/L 09/09/2024 12:47 PM EDT [facility] Total Bilirubin, Plasma 0.2 0.2 - 1.1 mg/dL 09/09/2024 12:47 PM EDT [facility] eGFRcr 92.8 mL/min/1.7 3m*2 09/09/2024 12:47 PM EDT [facility] Comment:Reported eGFRcr in m L/min/1.73m2 is based the CKD-EPI 2020 equation that does not use a race coefficient. Blood Venous blood specimen / Unknown Venipuncture / Unknown 09/09/2024 9:57 AM EDT 09/09/2024 9:57 AM EDT Jose Alberto Quiroga MD LAB BLOOD ORDERABLES Final Result Performing Organization Address [facility] Co de Phone Number [facility] [address] [place] [address] * Hepatitis C Antibody - ED (09/07/2023 6:31 PM EDT) Hepatitis C Antibody Negative Negative 09/07/2023 6:31 PM EDT [facility] Blood Venous blood specimen / Unknown 09/07/2023 5:51 PM EDT Aron Lala MD LAB BLOOD ORDERABLES Final Re sult Performing Organization Address [facility] de Phone Number [facility] [address] [place] [address] * ED HIV 1/2 Antibody/Antigen Screen w/Reflex to HIV 1/2 Differentiation (09/07/2023 6:31 PM EDT) [facility] HIV 1 & 2 Antibody/Antigen Screen Non Reactive Non Reactive 09/07/2023 6:31 PM EDT [facility] Comment:Screening for HIV 1 & 2 antibodies, and P24 antigen is NONREACTIVE. No confirmatory testing is required. Blood Venous blood specimen / Unknown 09/07/2023 5:50 PM EDT Aron Lala MD LAB BLOOD ORDERABLES Final Re sult Performing Organization Address [facility] de Phone Number [facility] [address] [place] [address] from Last 3 Months or Most Recently Relevant to Health Maintenance Insurance [place] Advance Directives * Full Code (Latest Code [...] Patient has decision-making capacity? Yes Care Teams Rumper Relationship Specialty Start Date End Date Shamika Roy APRN [address] [place] [address] PCP - General 09/08/23
--- OUTSIDE RECORDS SUMMARY | 2024-11-17 16:21 | XMS_ITS | Encounter Summary ---
Author Organization Healthcare Address [address] [place] [address] Care Team Providers Care Champion Of Sustainable Design Name Role Phone Shamika Roy APRN Primary Care Provider [phone] Encounter Details Date Type Department Care Team (Late st Contact Info) Description 04/16/2023 Lab Requisition [facility] [address] [place] [address] Tony Rios PA [address] [place] [address] Routine general medical examination at [...] EST Routine general medical examination at a [facility] TSH Routine 04/16/2023 7:28 AM EST Routine general medical examination at a [facility] FREE T4, PLASMA Routine 04/16/2023 7:28 AM EST Routine general medical examination at a [facility] HEMOGLOBIN A1C Routine 04/16/2023 7:28 AM EST Routine general medical examination at a [facility] LIPID PROFILE, PLASMA Routine 04/16/2023 7:28 AM EST Routine general medical examination at a [facility] facility COMPREHENSIVE METABOLIC PANEL, PLASMA Routine 04/16/2023 7:28 AM EST Routine general medical examination at a [facility] facility documented in this encounter Results * TSH (04/16/2023 7:28 AM EST) Thyroid Stimulating Hormone, Plasma 2.48 0.40 - 4.20 uIU/mL 04/16/2023 10:01 AM EST [facility] Blood Venous blood specimen / Unknown Venipuncture / Unknown 04/16/2023 7:28 AM EST 04/16/2023 8:22 AM EST us Tony FOWLER LAB BLOOD ORDERABLES Final Re sult [facility] [address] [place] [address] * T4, free (04/16/2023 7:28 AM EST) Free T4, Plasma 1.3 0.8 - 1.7 ng/dL 04/16/2023 10:01 AM EST [facility] Blood Venous blood specimen / Unknown Venipuncture / Unknown 04/16/2023 7:28 AM EST 04/16/2023 8:22 AM EST us Tony FOWLER LAB BLOOD ORDERABLES Final Re sult [facility] [address] [place] [address] * (ABNORMAL) CBC and Differential (04/16/2023 7:28 AM EST) WBC Count 10.50(H) 3.70 - 10.30 10*3/uL LAB HEMATOLOGY METHOD 04/16/2023 9:38 AM EST [facility] RBC Count 4.77 4.60 - 6.10 10*6/uL LAB HEMATOLOGY METHOD 04/16/2023 9:38 AM EST [facility] HGB 13.5(L) 13.7 - 17.5 g/dL LAB HEMATOLOGY METHOD 04/16/2023 9:38 AM EST [facility] HCT 40.5 40.0 - 51.0 % LAB HEMATOLOGY METHOD 04/16/2023 9:38 AM EST [facility] Platelet Count 205 155 - 369 10*3/uL LAB HEMATOLOGY METHOD 04/16/2023 9:38 AM EST [facility] MCV 85 79 - 98 fL LAB HEMATOLOGY METHOD 04/16/2023 9:38 AM EST [facility] MCH 28.3 26.0 - 32.0 pg LAB HEMATOLOGY METHOD 04/16/2023 9:38 AM EST [facility] MCHC 33.3 30.7 - 35.5 g/dL LAB HEMATOLOGY METHOD 04/16/2023 9:38 AM EST [facility] RDW 13.1 11.5 - 14.5 % LAB HEMATOLOGY METHOD 04/16/2023 9:38 AM EST [facility] MPV 10.8 8.8 - 12.5 fL LAB HEMATOLOGY METHOD 04/16/2023 9:38 AM EST [facility] nRBC 0.0 <=0.0 per 100 WBCs LAB HEMATOLOGY METHOD 04/16/2023 9:38 AM EST [facility] Differential Type Automated LAB HEMATOLOGY METHOD 04/16/2023 9:38 AM EST [facility] Neutrophils % 48.0 % LAB HEMATOLOGY METHOD 04/16/2023 9:38 AM EST [facility] Lymphocytes % 40.0 % LAB HEMATOLOGY METHOD 04/16/2023 9:38 AM EST [facility] Monocytes % 8.0 % LAB HEMATOLOGY [...] LAB HEMATOLOGY METHOD 04/16/2023 9:38 AM EST [facility] Lymphocytes Absolute 4.21(H) 1.20 - 3.90 10*3/uL LAB HEMATOLOGY METHOD 04/16/2023 9:38 AM EST [facility] Monocytes Absolute 0.86 0.30 - 0.90 10*3/uL LAB HEMATOLOGY METHOD 04/16/2023 9:38 AM EST [facility] Eosinophils Absolute 0.30 0.00 - 0.50 10*3/uL LAB HEMATOLOGY METHOD 04/16/2023 9:38 AM EST [facility] Basophils Absolute 0.06 0.00 - 0.10 10*3/uL LAB HEMATOLOGY METHOD 04/16/2023 9:38 AM EST [facility] Immature Granulocytes Absolute 0.03 0.00 - 0.06 10*3/uL LAB HEMATOLOGY METHOD 04/16/2023 9:38 AM EST [facility] Blood Venous blood specimen / Unknown Venipuncture / Unknown 04/16/2023 7:28 AM EST 04/16/2023 8:09 AM EST Narrative [facility] - 04/16/2023 9:38 AM EST Therapeutic decision making should be based on absolute values, rather than percentages. us Tony Rios PA LAB BLOOD ORDERABLES Final Re sult [facility] [address] [place] [address] * (ABNORMAL) Hemoglobin A1c (04/16/2023 7:28 AM [...] Adults <6.0% Children and Adolescents <7.5% Source: [place] [employer]. Standards of medical care in diabetes,2017. Diabetes Care.2017:40 (suppl 1):S1-S135. HbA1c assay performed by an ion-exchange chromatography method that is certified traceable to the DCCT. us Tony FOWLER LAB BLOOD ORDERABLES Final Re sult [facility] [address] [place] [address] * (ABNORMAL) Lipid panel (04/16/2023 7:28 AM EST) Cholesterol, Plasma 86 <200 mg/dL 04/16/2023 10:01 AM EST [facility] Comment: Cholesterol Reference Range (age >17 years): Desirable <200 mg/dL Borderline 200 to 239 mg/dL Undesirable >239 mg/dL HDL 28(L) >=40 mg/dL 04/16/2023 10:01 AM EST [facility] Comment: HDL Cholesterol Reference Ranges (age [...] Cholesterol/HDL Ratio 3 04/16/2023 10:01 AM EST [facility] LDL, Calculated 32 <100 mg/dL 10:01 AM EST [facility] Comment: LDL Cholesterol Reference Range (age [...] 12 hours? Unknown 04/16/2023 10:01 AM EST [facility] Blood Venous blood specimen / Unknown Venipuncture / Unknown 04/16/2023 7:28 AM EST 04/16/2023 8:22 AM EST us Tony FOWLER LAB BLOOD ORDERABLES Final Re sult [facility] [address] [place] [address] * (ABNORMAL) Comprehensive metabolic panel (04/16/2023 7:28 AM EST) Glucose, Plasma 222(H) 74 - 99 mg/dL 04/16/2023 10:01 AM [facility] BUN, Plasma 12 7 - 21 mg/dL 04/16/2023 10:01 AM [facility] Creatinine, Plasma 0.80 0.80 - 1.30 mg/dL 04/16/2023 10:01 AM [facility] BUN/Creatinine Ratio 15 04/16/2023 10:01 AM [facility] Sodium, Plasma 138 136 - 145 mmol/L 04/16/2023 10:01 AM [facility] Potassium, Plasma 4.2 3.7 - 4.8 mmol/L 04/16/2023 10:01 AM [facility] Chloride, Plasma 103 97 - 107 mmol/L 04/16/2023 10:01 AM [facility] CO2, Plasma 25 22 - 29 mmol/L 04/16/2023 10:01 AM [facility] Anion Gap 10 6 - 16 mmol/L 04/16/2023 10:01 AM [facility] Total Calcium, Plasma 9.1 8.9 - 10.2 mg/dL 04/16/2023 10:01 AM [facility] Total Protein 7.3 6.3 - 7.9 g/dL 04/16/2023 10:01 AM EST [facility] Albumin, Plasma 4.0 3.5 - 5.2 g/dL 04/16/2023 10:01 AM EST [facility] AST, Plasma 26 10 - 50 U/L 04/16/2023 10:01 AM [facility] ALT, Plasma 17 10 - 50 U/L 04/16/2023 10:01 AM EST [facility] Alkaline Phosphatase, Plasma 68 40 - 115 U/L 04/16/2023 10:01 AM EST [facility] Total Bilirubin, Plasma 0.6 0.2 - 1.1 mg/dL 04/16/2023 10:01 AM EST [facility] eGFRcr 108.5 mL/min/1.7 3m*2 04/16/2023 10:01 AM [facility] Comment:Reported eGFRcr in m L/min/1.73m2 is based the CKD-EPI 2020 equation that does not use a race coefficient. Blood Venous blood specimen / Unknown Venipuncture / Unknown 04/16/2023 7:28 AM EST 04/16/2023 8:22 AM EST Tony FOWLER LAB BLOOD ORDERABLES Final Re sult Performing Organization Address City/[facility]/ZIP Co de Phone Number [facility] [address] [place] [address] * Hepatitis panel, acute (04/16/2023 7:28 AM EST) Hepatitis B Surf Antigen Negative Negative 04/16/2023 10:47 AM EST [facility] Hepatitis C Antibody Negative Negative 04/16/2023 10:47 AM EST [facility] Hepatitis A Antibody IgM Negative Negative 04/16/2023 10:47 AM EST [facility] Hepatitis B Core Antibody IgM Negative Negative 04/16/2023 10:47 AM EST [facility] Blood Venous blood specimen / Unknown Venipuncture / Unknown 04/16/2023 7:28 AM EST 04/16/2023 8:25 AM EST Tony FOWLER LAB BLOOD ORDERABLES Final Re sult Performing Organization Address City/[facility]/ZIP Co de Phone Number [facility] [address] [place] [address] * (ABNORMAL) Serum Drug Screen (04/16/2023 7:28 AM EST) 9 Carboxy THC <5 <5 ng/mL 04/17/2023 9:32 PM EST [facility] Alprazolam <5 <5 ng/mL 04/17/2023 9:32 PM EST [facility] Amphetamine <10 <10 ng/mL 04/17/2023 9:32 PM EST [facility] Benzolyecgonine <20 <20 ng/mL 9:32 PM EST [facility] Buprenorphine <1 <1 ng/mL 04/17/2023 9:32 PM EST [facility] Butalbital <50 <50 ng/mL 04/17/2023 9:32 PM EST [facility] Clonazepam <5 <5 ng/mL 04/17/2023 9:32 PM EST [facility] Codeine <5 <5 ng/mL 04/17/2023 9:32 PM EST [facility] Diazepam <5 <5 ng/mL 04/17/2023 9:32 PM EST [facility] Fentanyl <1 <1 ng/mL 04/17/2023 9:32 PM [facility] Hydrocodone <2 <2 ng/mL 04/17/2023 9:32 PM EST [facility] Hydromorphone <5 <5 ng/mL 04/17/2023 9:32 PM EST [facility] Lorazepam 23(H) <5 ng/mL 04/17/2023 9:32 PM EST [facility] MDA <10 <10 ng/mL 04/17/2023 9:32 PM EST [facility] MDMA <10 <10 ng/mL 04/17/2023 9:32 PM [facility] Meperidine <5 <5 ng/mL 04/17/2023 9:32 PM [facility] Methadone <10 <10 ng/mL 04/17/2023 9:32 PM EST [facility] Methadone Metabolite <10 <10 ng/mL 03/2023 9:32 PM [facility] Methamphetamine <10 <10 ng/mL 9:32 PM [facility] Midazolam <5 <5 ng/mL 04/17/2023 9:32 PM [facility] Morphine <2 <2 ng/mL 04/17/2023 9:32 PM EST [facility] Norbuprenorphine <5 <5 ng/mL 04/17/19 9:32 PM EST [facility] Nordiazepam <10 <10 ng/mL 04/17/2023 9:32 PM EST [facility] Oxazepam <5 <5 ng/mL 04/17/2023 9:32 PM EST [facility] Oxycodone 12(H) <2 ng/mL 04/17/2023 9:32 PM EST [facility] Oxymorphone <2 <2 ng/mL 04/17/2023 9:32 PM EST [facility] Phenobarbital <50 <50 ng/mL 04/17/2023 9:32 PM EST [facility] Temazepam <5 <5 ng/mL 04/17/2023 9:32 PM EST [facility] Tramadol <20 <20 ng/mL 04/17/2023 9:32 PM EST [facility] Blood Venous blood specimen / Unknown Venipuncture / Unknown 04/16/2023 7:28 AM EST 04/16/2023 8:32 AM EST Narrative [facility] - 04/17/2023 9:32 PM EST Test performed by LC-MS/MS at the [facility]. This test was developed and its performance characteristics determined by [facility]. It has not been cleared or approved by the FDA. The laboratory is regulated under CLIA as qualified to perform high-complexity testing. This test is used for clinical purposes. us Tony FOWLER LAB BLOOD ORDERABLES Final Re sult [facility] [address] [place] [address] * Levetiracetam level (04/16/2023 7:28 AM EST) Levetiracetam (Keppra) 22.7 12.0 - 46.0 ug/mL 04/16/2023 9:29 PM EST [facility] Blood Venous blood specimen / Unknown Venipuncture / Unknown 04/16/2023 7:28 AM EST 04/16/2023 8:32 AM EST Narrative [facility] - 04/16/2023 9:29 PM EST Test performed by LC-MS/MS at the [facility]. This test was developed and its performance characteristics determined by [facility]. It has not been cleared or approved by the FDA. The laboratory is regulated under CLIA as qualified to perform high-complexity testing. This test is used for clinical purposes. Tony FOWLER LAB BLOOD ORDERABLES Final Re sult Performing Organization Address [facility] Co de Phone Number [facility] [address] [place] [address] * (ABNORMAL) Topiramate level (04/16/2023 7:28 AM EST) Topiramate <1.0(L) 2.0 - 20.0 ug/mL 04/16/2023 9:36 PM EST [facility] Blood Venous blood specimen / Unknown Venipuncture / Unknown 04/16/2023 7:28 AM EST 04/16/2023 8:32 AM EST Narrative [facility] - 04/16/2023 9:36 PM EST Topiramate Reference Ranges: Anticonvulsant: 5.0 to 20.0 ug/mL Psychiatric: 2.0 to 8.0 ug/mL Test performed by LC-MS/MS at the [facility]. This test was developed and its performance characteristics determined by [facility]. It has not been cleared or approved by the FDA. The laboratory is regulated under CLIA as qualified to perform high-complexity testing. This test is used for clinical purposes. Tony FOWLER LAB BLOOD ORDERABLES Final Re sult Performing Organization Address [facility] Co de Phone Number [facility] [address] [place] [address] documented in this encounter Visit Diagnoses Diagnosis Routine general medical examination at a health care facility documented in this encounter Care Teams Champion Of Sustainable Design Relationship Specialty Start Date End Date Shamika Roy APRN [address] [place] [id number] PCP - General 09/08/23 documented as of this encounter
--- OUTSIDE RECORDS SUMMARY | 2024-11-17 16:22 | XMS_ITS | Clinical Summary ---
Author Organization [facility] Address [address], [address] [place] [address] Care Team Providers Care Grain Processor Name Role Phone Carli Samayoa SATELLITE COMMUNICATIONS ENGINEER - MANAGER MOBILITY Primary Care Provider Allergies Active Allergy Reactions [...] on 40 units of Lantus BID at [facility], Reported on 04/29/2020 insulin aspart (NOVOLOG FLEXPEN) [...] hours Active Cholecalciferol (VITAMIN D3) 1.25 MG (14447 UT) CAPS Take 1 tablet by mouth [...] file Type:Not on file Address: [address] [place] [id number] [place] [...] Hernandez Spouse Primary Decision Maker Care Teams Grain Processor Relationship Specialty Start Date End Date Carli Samayoa APRN - MANAGER MOBILITY [address] [place] [id number] PCP - General Nurse Practitioner 04/16/20
--- OUTSIDE RECORDS SUMMARY | 2024-11-17 16:22 | XMS_ITS | Clinical Summary ---
Author Organization [facility] Address [address] [place] [id number] Care Team Providers Care Sas Programmer Analyst Name Role Phone Unavailable Primary Care Provider [...] COVID-19 Vaccine (1 - 2023-2 5 season) 2024 Influenza Vaccine (#1) 2024 Meningococcal B Vaccine Aged Out No l onger eligible based on patient's age to complete this topic Insurance [facility] MEDICARE HMO MR [employer] MEDICARE HMO MR
--- OUTSIDE RECORDS SUMMARY | 2024-11-17 16:22 | XMS_ITS | Encounter Summary ---
Author Organization [facility] Address [address], [address] [place] [address] Care Team Providers Care Climate Change Risk Assessor Name Role Phone Carli Samayoa APRN, CNP Primary Care Provider Reason for Visit * Reason Comments Medication Refill Encounter Details Date Type Department Care Team (Late st Contact Info) Description 07/25/2018 Refill [facility] [address] [place] [address] Linda Crowley MD [address] [place] [address], [place] [address] Medication Refill Social History Tobacco Use Types [...] documented as of this encounter Care Teams Climate Change Risk Assessor Relationship Specialty Start Date End Date Carli Samayoa APRN - CNP [address] [address] PCP - General Nurse Practitioner 04/16/20 documented as of this encounter
[2024-11-17 16:30] VITALS: PULSE 95; O2SAT 98
[2024-11-17 17:00] VITALS: BP 135/74; PULSE 75; RESP 16; TEMP 36.7; O2SAT 99
== END 2024-11-17 17:01 | disposition home or self-care (01) ==
PROVIDERS: Emergency Provider Student in an Organized Health Care Education/Training Program; PCP Nurse Practitioner
DX: R51.9 Headache, unspecified (principal); F17.210 Nicotine dependence, cigarettes, uncomplicated; Y04.8XXA Assault by other bodily force, initial encounter; Z86.73 Personal history of transient ischemic attack (TIA), and cerebral infarction without residual deficits
CPT/HCPCS: 70450; 99283; 99284

== ENCOUNTER 2024-11-18 18:16 | Observation (INO) | payer MEDICARE, MEDICAID, SELFPAY ==
--- OUTSIDE RECORDS SUMMARY | 2011-02-15 15:00 | XMS_ITS | Encounter Summary ---
Author Organization [facility] Address [address], [address] [place] [address] Care Team Providers Care Scientific Advisor Name Role Phone Mary Ann Henson MD Primary Care Provider Pato humphrey Encounter Details Date Type Department Care Team (Late st Contact Info) Description 02/15/2011 2:00 PM EST Hospital Encounter [facility] [address] [place] [address] Social History Tobacco Use Types Packs/Day Years Used Date Smoking Tobacco: Every Day Cigarettes 1 26 Smokeless Tobacco: Never Alcohol Use Standard Drinks/Week Comments Not Currently 0 (1 standard drink = 0.6 oz pur e alcohol) occ Sex and Gender Information Value Date Recorded Sex Assigned at Not on file Legal Sex Male 5:54 PM EST Gender Identity Not on file Sexual Orientation Not on file COVID-19 Exposure Response Date Recorded In the last month, have you been in contact with someone who was confirmed or suspected to have Coronavirus / COVID-19? No / Unsure 08/19/2020 9:23 PM EDT documented as of this encounter Progress Notes * Kim Menezes, PT - 02/15/2011 3:13 PM EST Images from the original note were not included. Physical Therapy Cancellation/No-show Note Patient Name: Kingsley Braulio Hernandez : 1975 Date: 02/15/2011 Cancels to date: 1 No-shows to date: 1 For today's appointment patient: [] Cancelled [] Rescheduled appointment [x] No-show Reason given by patient: [] Patient ill [] Conflicting appointment [] No transportation [] Conflict with work [] No reason given [] Other: Comments: documented in this encounter Plan of Treatment Not on file documented as of this encounter Visit Diagnoses Not on filedocumented in this encounter Additional Health Concerns Infection Onset Date Last Indicated Resolved Time COVID-19 (Rule Out) 08/20/2020 08/20/2020 08/22/19 21 3:42 PM EDT documented as of this encounter Care Teams Scientific Advisor Relationship Specialty Start Date End Date Mary Ann Henson MD PCP - General Family Medicine 11/26/10 03/13/13 documented as of this encounter
--- OUTSIDE RECORDS SUMMARY | 2011-02-18 15:00 | XMS_ITS | Encounter Summary ---
Author Organization [facility] Address [address], [address] [place] [address] Care Team Providers Care Beam Worker Name Role Phone Mary Ann Henson MD Primary Care Provider Pato humphrey Encounter Details Date Type Department Care Team (Late st Contact Info) Description 02/18/2011 2:00 PM EST Hospital Encounter [facility] [address] [place] [address] Social History Tobacco Use Types Packs/Day Years [...] documented as of this encounter Care Teams Beam Worker Relationship Specialty Start Date End Date Mary Ann Henson MD PCP - General Family Medicine 11/26/10 03/13/13 documented as of this encounter
--- OUTSIDE RECORDS SUMMARY | 2011-02-22 15:00 | XMS_ITS | Encounter Summary ---
Author Organization [facility] Address [address], [address] [place] [address] Care Team Providers Care Cloth Booker Name Role Phone Mary Ann Henson MD Primary Care Provider Pato humphrey Encounter Details Date Type Department Care Team (Late st Contact Info) Description 02/22/2011 2:00 PM EST Hospital Encounter [facility] [address] [place] [address] Social History Tobacco Use Types Packs/Day Years [...] as of this encounter Progress Notes * Duncan Kari, PT - 02/22/2011 3:01 PM EST Images from the original note were not included. Physical Therapy Cancellation/No-show Note Patient Name: Kingsley Braulio Hernandez : 1975 Date: 02/22/2011 Cancels to date: 2 No-shows to date: 2 For today's appointment patient: [x] Cancelled [] Rescheduled appointment [] No-show Reason given by patient: [] Patient ill [] Conflicting appointment [] No transportation [] Conflict with work [] No reason given [] Other: No need for land followup since hasn't been in pool. Has been out of town. Will f/u in 2 weeks Comments: documented in this encounter Plan of Treatment Not on file documented as of this encounter Visit Diagnoses Not on filedocumented in this encounter Additional Health Concerns Infection Onset Date Last Indicated Resolved Time COVID-19 (Rule Out) 08/20/2020 08/20/2020 08/22/19 21 3:42 PM EDT documented as of this encounter Care Teams Cloth Booker Relationship Specialty Start Date End Date Mary Ann Henson MD PCP - General Family Medicine 11/26/10 03/13/13 documented as of this encounter
--- OUTSIDE RECORDS SUMMARY | 2011-02-25 15:00 | XMS_ITS | Encounter Summary ---
Author Organization [facility] Address [address], [address] [place] [address] Care Team Providers Care Grain Mixer Name Role Phone Mary Ann Henson MD Primary Care Provider Pato humphrey Encounter Details Date Type Department Care Team (Late st Contact Info) Description 02/25/2011 2:00 PM EST Hospital Encounter [facility] [address] [place] [address] Social History Tobacco Use Types Packs/Day Years [...] documented as of this encounter Care Teams Grain Mixer Relationship Specialty Start Date End Date Mary Ann Henson MD PCP - General Family Medicine 11/26/10 03/13/13 documented as of this encounter
--- OUTSIDE RECORDS SUMMARY | 2011-03-01 15:00 | XMS_ITS | Encounter Summary ---
Author Organization [facility] Address [address], [address] [place] [address] Care Team Providers Care Bingo Usher Name Role Phone Mary Ann Henson MD Primary Care Provider Pato humphrey Encounter Details Date Type Department Care Team (Late st Contact Info) Description 03/01/2011 2:00 PM EST Hospital Encounter [facility] [address] [place] [address] Social History Tobacco Use Types Packs/Day Years [...] documented as of this encounter Care Teams Bingo Usher Relationship Specialty Start Date End Date Mary Ann Henson MD PCP - General Family Medicine 11/26/10 03/13/13 documented as of this encounter
[2024-11-18] VITALS (10 sets, daily range): BP systolic 95–152; BP diastolic 47–97; PULSE 67–127; RESP 16–20; TEMP 36.9–37; O2SAT 95–98; BMI 26.8
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
--- NOTE | 2024-11-18 18:36 | ECG_ITS ---
APPROVED REPORT Exam: Resting ECG HR:110 bpm ECG Measurements Heart Rate 110 AXES ND 152 P 48 QRSd 85 QRS 29 QT 322 T 73 QTc 387 Conclusion SINUS TACHYCARDIA NONSPECIFIC T-WAVE ABNORMALITY ABNORMAL RHYTHM ECG Electronically signed by : YANELIS HAIR, 12/05/2024 08:44:48
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
--- OUTSIDE RECORDS SUMMARY | 2024-11-18 18:39 | XMS_ITS | Encounter Summary ---
Author Organization Healthcare Address [address] [place] [address] Care Team Providers Care Vocational Education Teacher Name Role Phone Shamika Roy APRN Primary Care Provider [phone] Encounter Details Date Type Department Care Team (Late st Contact Info) Description 05/22/2023 Orders Only External Location [address] [place] [address] Provider, External Social History Tobacco Use Types [...] on filedocumented in this encounter Care Teams Vocational Education Teacher Relationship Specialty Start Date End Date Shamika Roy APRN [address] [place] [address] PCP - General 09/08/23 documented as of this encounter
--- OUTSIDE RECORDS SUMMARY | 2024-11-18 18:39 | XMS_ITS | Encounter Summary ---
Author Organization [facility] Address [address] [place] [address] Care Team Providers Care Fur Finisher Tailor Name Role Phone Shamika Roy APRN Primary Care Provider [phone] Encounter Details Date Type Department Care Team (Late st Contact Info) Description 12/03/2023 Orders Only External Location [address] [place] [address] Mikey Hernandez MD [address] [place], [place] [id number] Social History Tobacco Use Types Packs/Day Years [...] place to sleep or slept in a nursing home (including now)? No 09/08/2023 Utilities Answer Date [...] documented as of this encounter Care Teams Fur Finisher Tailor Relationship Specialty Start Date End Date Shamika Roy APRN [address] [place] [address] PCP - General 09/08/23 documented as of this encounter
--- OUTSIDE RECORDS SUMMARY | 2024-11-18 18:39 | XMS_ITS | Encounter Summary ---
Author Organization Healthcare Address [address] [place] [address] Care Team Providers Care Sap Data Analyst Name Role Phone Shamika Roy APRN Primary Care Provider [phone] Encounter Details Date Type Department Care Team (Late st Contact Info) Description 12/03/2023 Orders Only External Location [address] [place] [address] Mikey Hernandez MD [address] [place], [place] [id number] Social History Tobacco Use Types Packs/Day Years [...] documented as of this encounter Care Teams Sap Data Analyst Relationship Specialty Start Date End Date Shamika Roy APRN [address] [place] [address] PCP - General 09/08/23 documented as of this encounter
--- OUTSIDE RECORDS SUMMARY | 2024-11-18 18:39 | XMS_ITS | Encounter Summary ---
Author Organization Healthcare Address [address] [place] [address] Care Team Providers Care Systematic Theology Professor Name Role Phone Shamika Roy APRN Primary Care Provider [phone] Encounter Details Date Type Department Care Team (Late st Contact Info) Description 06/03/2023 Orders Only External Location [address] [place] [address] Provider, External Social History Tobacco Use Types [...] on filedocumented in this encounter Care Teams Systematic Theology Professor Relationship Specialty Start Date End Date Shamika Roy APRN [address] [place] [id number] PCP - General 09/08/23 documented as of this encounter
--- OUTSIDE RECORDS SUMMARY | 2024-11-18 18:39 | XMS_ITS | Clinical Summary ---
Author Organization [facility] Address [address] [place] [address] Care Team Providers Care Central Station Operator Name Role Phone Shamika Roy APRN Primary Care Provider [phone] Allergies Active Allergy Reactions Criticality Noted Date [...] Type Department Care Team Description 09/14/2024 Telephone [facility] Inpatient Psychiatry [address] [place] [address] Linda Pepe 09/13/2024 Telephone [facility] Inpatient Psychiatry [address] [place] [address] Linda Pepe 09/09/2024 7:40 AM EDT - 09/10/2024 10:41 AM EDT Hospital Encounter [facility] Inpatient Psychiatry [address] [place] [address] Jose Alberto Quiroga MD Potter, Samuel J, MD Suicide attempt (CMS/FORMERLY [facility]) (Primary Dx) Discharge Disposition: Home or Self Care 09/09/2024 Plan of Care Documentation [facility] S Inpatient Psychiatry [address] [place] [address] 09/09/2024 Travel from Last 3 [...] Never 09/09/2024 How often do you attend [facility] or islam services? Never 09/09/2024 Do you belong to any clubs o r organizations such as christianity groups, unions, fraternal or athletic groups, or [...] more drinks on one occasion? Never 09/09/2024 [facility] [place] of Occupat ional Health - Occupational Stress [...] any time in the past 12 m [facility], were you homeless or living in a fci (including now)? No 09/09/2024 Utilities Answer Date [...] Completed 09/07/2023 [facility]-Hepatitis C Screening Completed 09/07/2023, [id number] Vaccine Completed 01/09/2024, 12/14/19 23 [facility]-Obesity Intervention [...] - 99 mg/dL 09/10/2024 8:00 AM EDT [facility] Comment:Accuracy of a glucos e result [...] Comment 09/10/2024 8:00 AM EDT [facility] Medical Billing Manager ID Tri Alba 025 8:00 AM EDT [facility] Device ID [id number] 09/10/2024 8:00 AM EDT [facility] Specimen Type POC Capillary 09/10/2024 8:00 AM EDT [facility] Blood Capillary blood specimen / Unknown 09/10/2024 7:59 AM EDT 09/10/2024 8:00 AM EDT us Vicente Del Valle MD LAB POINT OF CARE TE ST DOCKED DEVICE UNSOLICITED RESULTS Final Result [facility] [address] [place] [id number] * (ABNORMAL) OXYCODONE CONFIRMATION,URINE (09/09/2024 2:25 PM EDT) Oxycodone 659(H) <50 ng/mL 09/12/2024 10:11 PM EDT [facility] Oxymorphone <50 <50 ng/mL 09/12/2024 10:11 PM EDT [facility] Oxymorphone Glucuronide >1,000(H) <50 ng/mL 09/12/2024 10:11 PM EDT [facility] Urine Urine specimen obtained by clean catch procedure / Unknown 09/09/2024 2:25 PM EDT 09/09/2024 4:04 PM EDT Narrative [facility] - 09/12/2024 10:11 PM EDT Test performed by LC-MS/MS at the [facility] Laboratory. This test was developed and its performance characteristics determined by [facility]. It has not been cleared or approved by the FDA. The laboratory is regulated under CLIA as qualified to perform high-complexity testing. This test is used for clinical purposes. us Vicente Del Valle MD LAB URINE ORDERABLES Final Re sult [facility] [address] [place] [address] * Drug abuse screen (09/09/2024 2:25 PM EDT) Amphetamine Screen Urine Negative Cutoff: 500 ng/mL 09/09/2024 4:23 PM EDT [facility] Benzodiazepines Screen Urine Presumptive positive. Confirmation by LC-MS/MS to follow. Cutoff: 200 ng/mL 09/09/2024 4:23 PM EDT [facility] Cannabinoid Screen Urine Negative Cutoff: 50 ng/mL 09/09/2024 4:23 PM EDT [facility] Cocaine Screen Urine Negative Cutoff: 300 ng/mL 09/09/2024 4:23 PM EDT [facility] Barbiturate Screen Urine Negative Cutoff: 200 ng/mL 09/09/2024 4:23 PM EDT [facility] Opiate Screen Urine Negative Cutoff: 300 ng/mL 09/09/2024 4:23 PM EDT [facility] Methadone Screen Urine Negative Cutoff: 300 ng/mL 09/09/2024 4:23 PM EDT [facility] Buprenorphine Screen Urine Negative Cutoff: 10 ng/mL 09/09/2024 4:23 PM EDT [facility] Fentanyl Screen Urine Negative Cutoff: 1 ng/mL 09/09/2024 4:23 PM EDT [facility] Oxycodone Screen Urine Presumptive positive. Confirmation by LC-MS/MS to follow. Cutoff: 100 ng/mL 09/09/2024 4:23 PM EDT [facility] Urine Urine specimen obtained by clean catch procedure / Unknown 09/09/2024 2:25 PM EDT 09/09/2024 4:04 PM EDT us Vciente Del Valle MD LAB URINE ORDERABLES Final Re sult [facility] [address] [place] [id number] * (ABNORMAL) Benzodiazepine Confirm Urine (09/09/2024 2:25 PM EDT) [place] Alprazolam <20 <20 ng/mL 09/12 10:10 PM EDT [facility] [place] Midazolam <20 <20 ng/mL 2024 10:10 PM EDT [facility] [place] Triazolam <20 <20 ng/mL 2024 10:10 PM EDT [facility] Alprazolam <10 <10 ng/mL 09/12/2024 10:10 PM EDT [facility] Aminoclonazepam <20 <20 ng/mL 10:10 PM EDT [facility] Clonazepam <10 <10 ng/mL 09/12/2024 10:10 PM EDT [facility] Diazepam <10 <10 ng/mL 09/12/2024 10:10 PM EDT [facility] Lorazepam <20 <20 ng/mL 09/12/2024 10:10 PM EDT [facility] Lorazepam Glucuronide >1,000(H) <50 ng/mL 09/12/2024 10:10 PM EDT [facility] Midazolam <20 <20 ng/mL 09/12/2024 10:10 PM EDT [facility] Nordiazepam <20 <20 ng/mL 09/12/2024 10:10 PM EDT [facility] Oxazepam <20 <20 ng/mL 09/12/2024 10:10 PM EDT [facility] Oxazepam Glucuronide <50 <50 ng/mL 09/12/2024 10:10 PM EDT [facility] Temazepam <20 <20 ng/mL 09/12/2024 10:10 PM EDT [facility] Temazepam Glucuronide <50 <50 ng/mL 09/12/2024 10:10 PM EDT [facility] Triazolam <20 <20 ng/mL 09/12/2024 10:10 PM EDT [facility] Urine Urine specimen obtained by clean catch procedure / Unknown 09/09/2024 2:25 PM EDT 09/09/2024 4:04 PM EDT Narrative [facility] - 09/12/2024 10:10 PM EDT Drug analysis is confirmed by LC-MS/MS (LC Tandem Mass Spectrometry) on Urine specimens. This test was developed and its performance characteristics determined by [facility]. It has not been cleared or approved by the FDA. The laboratory is regulated under CLIA as qualified to perform high-complexity testing. This test is used for clinical purposes. Testing is performed at the [facility], Special Chemistry Laboratory. us Vicente Del Valle MD LAB URINE ORDERABLES Final Re sult [facility] [address] [place] [address] * (ABNORMAL) Urinalysis with reflex microscopic (Culture NOT Included) (09/09/2024 2:25 PM EDT) Color, Urine Yellow LAB URINALYSIS - AUTOMATED METHOD 09/09/2024 4:07 PM EDT [facility] Clarity, Urine Clear LAB URINALYSIS - AUTOMATED METHOD 09/09/2024 4:07 PM EDT [facility] Spec [place], Urine >1.030(H) 1.005 - 1.030 LAB URINALYSIS - AUTOMATED METHOD 09/09/2024 4:07 PM EDT [facility] pH, Urine 6.0 5.0 - 8.0 LAB URINALYSIS - AUTOMATED METHOD 09/09/2024 4:07 PM EDT [facility] Protein, Urine Trace(A) Negative mg/dL LAB URINALYSIS - AUTOMATED METHOD 09/09/2024 4:07 PM EDT [facility] Glucose, Urine >=1000(A) Negative mg/dL LAB URINALYSIS - AUTOMATED METHOD 09/09/2024 4:07 PM EDT [facility] Ketones, Urine Negative Negative mg/dL LAB URINALYSIS - AUTOMATED METHOD 09/09/2024 4:07 PM EDT [facility] Blood, Urine Negative Negative LAB URINALYSIS - AUTOMATED METHOD 09/09/2024 4:07 PM EDT [facility] Bilirubin, Urine Negative Negative LAB URINALYSIS - AUTOMATED METHOD 09/09/2024 4:07 PM EDT [facility] Urobilinogen, Urine 1.0 0.2 to 1.0 mg/dL LAB URINALYSIS - AUTOMATED METHOD 09/09/2024 4:07 PM EDT [facility] Leukocytes, Urine Negative Negative LAB URINALYSIS - AUTOMATED METHOD 09/09/2024 4:07 PM EDT [facility] Nitrite, Urine Negative Negative LAB URINALYSIS - AUTOMATED METHOD 09/09/2024 4:07 PM EDT [facility] Urine Urine specimen obtained by clean catch procedure / Unknown 09/09/2024 2:25 PM EDT 09/09/2024 4:04 PM EDT us Vicente Del Valle MD LAB URINE ORDERABLES Final Re sult [facility] [address] [place] [address] * (ABNORMAL) CBC w/diff (09/09/2024 9:57 AM EDT) WBC Count 11.41(H) 3.70 - 10.30 10*3/uL LAB HEMATOLOGY METHOD 09/09/2024 12:35 PM EDT [facility] RBC Count 5.13 4.60 - 6.10 10*6/uL LAB HEMATOLOGY METHOD 09/09/2024 12:35 PM EDT [facility] HGB 15.1 13.7 - 17.5 g/dL LAB HEMATOLOGY METHOD 09/09/2024 12:35 PM EDT [facility] HCT 45.3 40.0 - 51.0 % LAB HEMATOLOGY METHOD 09/09/2024 12:35 PM EDT [facility] Platelet Count 172 155 - 369 10*3/uL LAB HEMATOLOGY METHOD 09/09/2024 12:35 PM EDT [facility] MCV 88 79 - 98 fL LAB HEMATOLOGY METHOD 09/09/2024 12:35 PM EDT [facility] MCH 29.4 26.0 - 32.0 pg LAB HEMATOLOGY METHOD 09/09/2024 12:35 PM EDT [facility] MCHC 33.3 30.7 - 35.5 g/dL LAB HEMATOLOGY METHOD 09/09/2024 12:35 PM EDT [facility] RDW 12.9 11.5 - 14.5 % LAB HEMATOLOGY METHOD 09/09/2024 12:35 PM EDT [facility] MPV 10.9 8.8 - 12.5 fL LAB HEMATOLOGY METHOD 09/09/2024 12:35 PM EDT [facility] nRBC 0.0 <=0.0 per 100 WBCs LAB HEMATOLOGY METHOD 09/09/2024 12:35 PM EDT [facility] Differential Type Automated LAB HEMATOLOGY METHOD 09/09/2024 12:35 PM EDT [facility] Neutrophils % 60 % LAB HEMATOLOGY METHOD 09/09/2024 12:35 PM EDT [facility] Lymphocytes % 27 % LAB HEMATOLOGY METHOD 09/09/2024 12:35 PM EDT [facility] Monocytes % 9 % LAB HEMATOLOGY METHOD 09/09/2024 12:35 PM EDT [facility] Eosinophils % 3 % LAB HEMATOLOGY METHOD 09/09/2024 12:35 PM EDT [facility] Basophils % 1 % LAB HEMATOLOGY METHOD 09/09/2024 12:35 PM EDT [facility] Immature Granulocytes % 0 % LAB HEMATOLOGY METHOD 09/09/2024 12:35 PM EDT [facility] Neutrophils Absolute 6.99(H) 1.60 - 6.10 10*3/uL LAB HEMATOLOGY METHOD 09/09/2024 12:35 PM EDT [facility] Lymphocytes Absolute 3.03 1.20 - 3.90 10*3/uL LAB HEMATOLOGY METHOD 09/09/2024 12:35 PM EDT [facility] Monocytes Absolute 0.99(H) 0.30 - 0.90 10*3/uL LAB HEMATOLOGY METHOD 09/09/2024 12:35 PM EDT [facility] Eosinophils Absolute 0.30 0.00 - 0.50 10*3/uL LAB HEMATOLOGY METHOD 09/09/2024 12:35 PM EDT [facility] Basophils Absolute 0.07 0.00 - 0.10 10*3/uL LAB HEMATOLOGY METHOD 09/09/2024 12:35 PM EDT [facility] Immature Granulocytes Absolute 0.03 0.00 - 0.06 10*3/uL LAB HEMATOLOGY METHOD 09/09/2024 12:35 PM EDT [facility] Blood Venous blood specimen / Unknown Venipuncture / Unknown 09/09/2024 9:57 AM EDT 09/09/2024 9:57 AM EDT Narrative [facility] - 09/09/2024 12:35 PM EDT Therapeutic decision making should be based on absolute values, rather than percentages. Jose Alberto Quiroga MD LAB BLOOD ORDERABLES Final Result Performing Organization Address City/[facility] Co de Phone Number [facility] [address] [place] [address] * Thyroid Stimulating Hormone, Plasma (09/09/2024 9:57 AM EDT) Thyroid Stimulating Hormone, Plasma 1.42 0.40 - 4.20 uIU/mL 09/09/2024 12:47 PM EDT [facility] Blood Venous blood specimen / Unknown Venipuncture / Unknown 09/09/2024 9:57 AM EDT 09/09/2024 9:57 AM EDT Jose Alberto Quiroga MD LAB BLOOD ORDERABLES Final Result Performing Organization Address City/[facility]/ZIP Co de Phone Number [facility] [address] [place] [address] * Free T4, Plasma (09/09/2024 9:57 AM EDT) Free T4, Plasma 1.3 0.8 - 1.7 ng/dL 09/09/2024 12:47 PM EDT [facility] Blood Venous blood specimen / Unknown Venipuncture / Unknown 09/09/2024 9:57 AM EDT 09/09/2024 9:57 AM EDT Jose Alberto Quiroga MD LAB BLOOD ORDERABLES Final Result [facility] [address] [place] [address] * (ABNORMAL) Hemoglobin A1c (09/09/2024 9:57 AM EDT) Hemoglobin A1c 10.7(H) <5.7 % 09/09/2024 1:22 PM EDT [facility] Blood Venous blood specimen / Unknown Venipuncture / Unknown 09/09/2024 9:57 AM EDT 09/09/2024 9:57 AM EDT Narrative [facility] - 09/09/2024 1:22 PM EDT HA1C Interpretive Data: Diagnosis of Diabetes: Diabetic > or = 6.5% Pre-diabetic 5.7 to 6.4% Non-diabetic < or = 5.6% Glycemic Targets for Type I and Type II Diabetics: Non- Adults <7.0% Adults <6.0% Children and Adolescents <7.5% Source: [place] [employer]. Standards of medical care in diabetes,2017. Diabetes Care.2017:40 (suppl 1):S1-S135. Jose Alberto Quiroga MD LAB BLOOD ORDERABLES Final Result [facility] [address] [place] [address] * (ABNORMAL) Lipid panel (09/09/2024 9:57 AM EDT) Cholesterol, Plasma 90 <200 mg/dL 09/09/2024 1:59 PM EDT [facility] Comment: Cholesterol Reference Range (age >17 years): Desirable <200 mg/dL Borderline 200 to 239 mg/dL Undesirable >239 mg/dL HDL 28(L) >=40 mg/dL 09/09/2024 1:59 PM EDT [facility] Comment: HDL Cholesterol Reference Ranges (age >17 years): Female, acceptable > or = 50 mg/dL Male, acceptable > or = 40 mg/dL Triglycerides, Plasma 185(H) <150 mg/dL 09/09/2024 1:59 PM EDT [facility] Comment: Triglyceride Reference Range (age >17 years): Desirable: <150 mg/dL Borderline high: 150 to 199 mg/dL High: 200 to 499 mg/dL Very high: >499 mg/dL Increased risk of pancreatitis: >1000 mg/dL Cholesterol/HDL Ratio 3 09/09/2024 1:59 PM EDT [facility] LDL, Calculated 32 <100 mg/dL 1:59 PM EDT [facility] Comment: LDL Cholesterol Reference Range [...] 12 hours? Unknown 09/09/2024 1:59 PM EDT [facility] Blood Venous blood specimen / Unknown Venipuncture / Unknown 09/09/2024 9:57 AM EDT 09/09/2024 9:57 AM EDT us Vicente Del Valle MD LAB BLOOD ORDERABLES Final Re sult [facility] [address] [place] [address] * (ABNORMAL) CMP (09/09/2024 9:57 AM EDT) Glucose, Plasma 109(H) 74 - 99 mg/dL 09/09/2024 12:47 PM EDT [facility] BUN, Plasma 13 7 - 21 mg/dL 09/09/2024 12:47 PM EDT [facility] Creatinine, Plasma 0.99 0.70 - 1.20 mg/dL 09/09/2024 12:47 PM EDT [facility] BUN/Creatinine Ratio 13 09/09/2024 12:47 PM EDT [facility] Sodium, Plasma 138 136 - 145 mmol/L 09/09/2024 12:47 PM EDT [facility] Potassium, Plasma 4.1 3.6 - 4.9 mmol/L 09/09/2024 12:47 PM EDT [facility] Chloride, Plasma 104 97 - 107 mmol/L 09/09/2024 12:47 PM EDT [facility] CO2, Plasma 22 22 - 29 mmol/L 09/09/2024 12:47 PM EDT [facility] Anion Gap 12 6 - 16 mmol/L 09/09/2024 12:47 PM EDT [facility] Total Calcium, Plasma 9.0 8.9 - 10.2 mg/dL 09/09/2024 12:47 PM EDT [facility] Total Protein 7.3 6.3 - 7.9 g/dL 09/09/2024 12:47 PM EDT [facility] Albumin, Plasma 4.1 3.5 - 5.2 g/dL 09/09/2024 12:47 PM EDT [facility] AST, Plasma 18 10 - 50 U/L 09/09/2024 12:47 PM EDT [facility] ALT, Plasma 10 10 - 50 U/L 09/09/2024 12:47 PM EDT [facility] Alkaline Phosphatase, Plasma 56 40 - 115 U/L 09/09/2024 12:47 PM EDT [facility] Total Bilirubin, Plasma 0.2 0.2 - 1.1 mg/dL 09/09/2024 12:47 PM EDT [facility] eGFRcr 92.8 mL/min/1.7 3m*2 09/09/2024 12:47 PM EDT [facility] Comment:Reported eGFRcr in m L/min/1.73m2 is based the CKD-EPI 2020 equation that does not use a race coefficient. Blood Venous blood specimen / Unknown Venipuncture / Unknown 09/09/2024 9:57 AM EDT 09/09/2024 9:57 AM EDT Jose Alberto Quiroga MD LAB BLOOD ORDERABLES Final Result Performing Organization Address [facility] Co de Phone Number [facility] [address] [place] [address] * Hepatitis C Antibody - ED (09/07/2023 6:31 PM EDT) Hepatitis C Antibody Negative Negative 09/07/2023 6:31 PM EDT [facility] Blood Venous blood specimen / Unknown 09/07/2023 5:51 PM EDT Aron Lala MD LAB BLOOD ORDERABLES Final Re sult Performing Organization Address [facility] de Phone Number [facility] [address] [place] [address] * ED HIV 1/2 Antibody/Antigen Screen w/Reflex to HIV 1/2 Differentiation (09/07/2023 6:31 PM EDT) [facility] HIV 1 & 2 Antibody/Antigen Screen Non Reactive Non Reactive 09/07/2023 6:31 PM EDT [facility] Comment:Screening for HIV 1 & 2 antibodies, and P24 antigen is NONREACTIVE. No confirmatory testing is required. Blood Venous blood specimen / Unknown 09/07/2023 5:50 PM EDT Aron Lala MD LAB BLOOD ORDERABLES Final Re sult Performing Organization Address [facility] de Phone Number [facility] [address] [place] [address] from Last 3 Months or Most Recently Relevant to Health Maintenance Insurance MEDICARE [place] Advance Directives * Full Code (Latest Code [...] Patient has decision-making capacity? Yes Care Teams Central Station Operator Relationship Specialty Start Date End Date Shamika Roy APRN [address] [place] [address] PCP - General 09/08/23
--- OUTSIDE RECORDS SUMMARY | 2024-11-18 18:39 | XMS_ITS | Referral Summary ---
Author Organization [facility] Address [facility] [address] [address] Care Team Providers Care Shipping And Receiving Assistant Name Role Phone Pcp, None MD Primary Care Provider [phone] Allergies Active Allergy Reactions Criticality Noted Date [...] by mouth daily. 7 tablet 8 Active Wdrjdusorb-YI-Q angela Polysacch (ALCORTIN A) 1-2-1 % GEL Apply topically daily. 48 g 5 8 Active atorvastatin (LIPITOR) 80 MG TABS Take 1 tablet by mouth daily. 90 tablet 1 9 Active vitamin D-2 (ERGOCALCIFEROL ) 71873 UNIT CAPS Take 1 capsule by mouth [...] of Treatment Not on file Care Teams Shipping And Receiving Assistant Relationship Specialty Start Date End Date Pcp, Trice, PCP - General Internal Medicine 07/14/18
--- OUTSIDE RECORDS SUMMARY | 2024-11-18 18:39 | XMS_ITS | Encounter Summary ---
Author Organization [facility] Address [address], [address] [place] [address] Care Team Providers Care Digital Media Sales Consultant Name Role Phone Carli Samayoa APRN, CNP Primary Care Provider [phone] Reason for Visit * Reason Comments Medication Refill Encounter Details Date Type Department Care Team (Late st Contact Info) Description 07/25/2018 Refill [facility] [address] [place] [address] Linda Crowley MD [address] [place] [address], [place] [address] Medication Refill Social History Tobacco Use Types [...] documented as of this encounter Care Teams Digital Media Sales Consultant Relationship Specialty Start Date End Date Carli Samayoa APRN - CNP [address] [address] PCP - General Nurse Practitioner 04/16/20 documented as of this encounter
--- OUTSIDE RECORDS SUMMARY | 2024-11-18 18:39 | XMS_ITS | Clinical Summary ---
Author Organization [facility] Address [facility] [place] [place] [address] Care Team Providers Care Efficiency Miner Blasting Name Role Phone Pcp, None MD Primary Care Provider [phone] Allergies Active Allergy Reactions Criticality Noted Date [...] by mouth daily. 7 tablet 8 Active Buxhpnzegg-YU-L angela Polysacch (ALCORTIN A) 1-2-1 % GEL Apply topically daily. 48 g 5 8 Active atorvastatin (LIPITOR) 80 MG TABS Take 1 tablet by mouth daily. 90 tablet 1 9 Active vitamin D-2 (ERGOCALCIFEROL ) 61933 UNIT CAPS Take 1 capsule by mouth [...] age to complete this topic Care Teams Efficiency Miner Blasting Relationship Specialty Start Date End Date Pcp, MD Trice PCP - General Internal Medicine 07/14/18
--- OUTSIDE RECORDS SUMMARY | 2024-11-18 18:39 | XMS_ITS | Encounter Summary ---
Author Organization Healthcare Address [address] [place] [address] Care Team Providers Care Glue Sprayer Name Role Phone Shamika Roy APRN Primary Care Provider [phone] Encounter Details Date Type Department Care Team (Late st Contact Info) Description 04/16/2023 Lab Requisition Merged With [facility] [address] [place] [address] Tony Rios PA [address] [place] [address] Routine general medical examination at [...] EST Routine general medical examination at a [facility] care facility TSH Routine 04/16/2023 7:28 AM EST Routine general medical examination at a [facility] care facility FREE T4, PLASMA Routine 04/16/2023 7:28 AM EST Routine general medical examination at a [facility] care facility HEMOGLOBIN A1C Routine 04/16/2023 7:28 AM EST Routine general medical examination at a [facility] care facility LIPID PROFILE, PLASMA Routine 04/16/2023 7:28 AM EST Routine general medical examination at a [facility] facility COMPREHENSIVE METABOLIC PANEL, PLASMA Routine 04/16/2023 7:28 AM EST Routine general medical examination at a [facility] facility documented in this encounter Results * TSH (04/16/2023 7:28 AM EST) Thyroid Stimulating Hormone, Plasma 2.48 0.40 - 4.20 uIU/mL 04/16/2023 10:01 AM EST [facility] Blood Venous blood specimen / Unknown Venipuncture / Unknown 04/16/2023 7:28 AM EST 04/16/2023 8:22 AM EST us Tony [facility]OWL[facility] LAB BLOOD ORDERABLES Final Re sult [facility] [address] [place] [address] * T4, free (04/16/2023 7:28 AM EST) Free T4, Plasma 1.3 0.8 - 1.7 ng/dL 04/16/2023 10:01 AM EST [facility] Blood Venous blood specimen / Unknown Venipuncture / Unknown 04/16/2023 7:28 AM EST 04/16/2023 8:22 AM EST us Tony FOWLER LAB BLOOD ORDERABLES Final Re sult [facility] [address] [place] [address] * (ABNORMAL) CBC and Differential (04/16/2023 7:28 AM EST) WBC Count 10.50(H) 3.70 - 10.30 10*3/uL LAB HEMATOLOGY METHOD 04/16/2023 9:38 AM EST [facility] RBC Count 4.77 4.60 - 6.10 10*6/uL LAB HEMATOLOGY METHOD 04/16/2023 9:38 AM EST [facility] HGB 13.5(L) 13.7 - 17.5 g/dL LAB HEMATOLOGY METHOD 04/16/2023 9:38 AM EST [facility] HCT 40.5 40.0 - 51.0 % LAB HEMATOLOGY METHOD 04/16/2023 9:38 AM EST [facility] Platelet Count 205 155 - 369 10*3/uL LAB HEMATOLOGY METHOD 04/16/2023 9:38 AM EST [facility] MCV 85 79 - 98 fL LAB HEMATOLOGY METHOD 04/16/2023 9:38 AM EST [facility] MCH 28.3 26.0 - 32.0 pg LAB HEMATOLOGY METHOD 04/16/2023 9:38 AM EST [facility] MCHC 33.3 30.7 - 35.5 g/dL LAB HEMATOLOGY METHOD 04/16/2023 9:38 AM EST [facility] RDW 13.1 11.5 - 14.5 % LAB HEMATOLOGY METHOD 04/16/2023 9:38 AM EST [facility] MPV 10.8 8.8 - 12.5 fL LAB HEMATOLOGY METHOD 04/16/2023 9:38 AM EST [facility] nRBC 0.0 <=0.0 per 100 WBCs LAB HEMATOLOGY METHOD 04/16/2023 9:38 AM EST [facility] Differential Type Automated LAB HEMATOLOGY METHOD 04/16/2023 9:38 AM EST [facility] Neutrophils % 48.0 % LAB HEMATOLOGY METHOD 04/16/2023 9:38 AM EST [facility] Lymphocytes % 40.0 % LAB HEMATOLOGY METHOD 04/16/2023 9:38 AM EST [facility] Monocytes % 8.0 % LAB HEMATOLOGY [...] LAB HEMATOLOGY METHOD 04/16/2023 9:38 AM EST [facility] Lymphocytes Absolute 4.21(H) 1.20 - 3.90 10*3/uL LAB HEMATOLOGY METHOD 04/16/2023 9:38 AM EST [facility] Monocytes Absolute 0.86 0.30 - 0.90 10*3/uL LAB HEMATOLOGY METHOD 04/16/2023 9:38 AM EST [facility] Eosinophils Absolute 0.30 0.00 - 0.50 10*3/uL LAB HEMATOLOGY METHOD 04/16/2023 9:38 AM EST [facility] Basophils Absolute 0.06 0.00 - 0.10 10*3/uL LAB HEMATOLOGY METHOD 04/16/2023 9:38 AM EST [facility] Immature Granulocytes Absolute 0.03 0.00 - 0.06 10*3/uL LAB HEMATOLOGY METHOD 04/16/2023 9:38 AM EST [facility] Blood Venous blood specimen / Unknown Venipuncture / Unknown 04/16/2023 7:28 AM EST 04/16/2023 8:09 AM EST Narrative [facility] - 04/16/2023 9:38 AM EST Therapeutic decision making should be based on absolute values, rather than percentages. us Tony Rios PA LAB BLOOD ORDERABLES Final Re sult [facility] [address] [place] [address] * (ABNORMAL) Hemoglobin A1c (04/16/2023 7:28 AM [...] Adults <6.0% Children and Adolescents <7.5% Source: [place] [employer]. Standards of medical care in diabetes,2017. Diabetes Care.2017:40 (suppl 1):S1-S135. HbA1c assay performed by an ion-exchange chromatography method that is certified traceable to the DCCT. us Tony FOWLER LAB BLOOD ORDERABLES Final Re sult [facility] [address] [place] [address] * (ABNORMAL) Lipid panel (04/16/2023 7:28 AM EST) Cholesterol, Plasma 86 <200 mg/dL 04/16/2023 10:01 AM EST [facility] Comment: Cholesterol Reference Range (age >17 years): Desirable <200 mg/dL Borderline 200 to 239 mg/dL Undesirable >239 mg/dL HDL 28(L) >=40 mg/dL 04/16/2023 10:01 AM EST [facility] Comment: HDL Cholesterol Reference Ranges (age [...] Cholesterol/HDL Ratio 3 04/16/2023 10:01 AM EST [facility] LDL, Calculated 32 <100 mg/dL 10:01 AM EST [facility] Comment: LDL Cholesterol Reference Range (age [...] 12 hours? Unknown 04/16/2023 10:01 AM EST [facility] Blood Venous blood specimen / Unknown Venipuncture / Unknown 04/16/2023 7:28 AM EST 04/16/2023 8:22 AM EST us Tony FOWLER LAB BLOOD ORDERABLES Final Re sult [facility] [address] [place] [address] * (ABNORMAL) Comprehensive metabolic panel (04/16/2023 7:28 AM EST) Glucose, Plasma 222(H) 74 - 99 mg/dL 04/16/2023 10:01 AM [facility] BUN, Plasma 12 7 - 21 mg/dL 04/16/2023 10:01 AM [facility] Creatinine, Plasma 0.80 0.80 - 1.30 mg/dL 04/16/2023 10:01 AM [facility] BUN/Creatinine Ratio 15 04/16/2023 10:01 AM [facility] Sodium, Plasma 138 136 - 145 mmol/L 04/16/2023 10:01 AM [facility] Potassium, Plasma 4.2 3.7 - 4.8 mmol/L 04/16/2023 10:01 AM [facility] Chloride, Plasma 103 97 - 107 mmol/L 04/16/2023 10:01 AM [facility] CO2, Plasma 25 22 - 29 mmol/L 04/16/2023 10:01 AM [facility] Anion Gap 10 6 - 16 mmol/L 04/16/2023 10:01 AM [facility] Total Calcium, Plasma 9.1 8.9 - 10.2 mg/dL 04/16/2023 10:01 AM [facility] Total Protein 7.3 6.3 - 7.9 g/dL 04/16/2023 10:01 AM EST [facility] Albumin, Plasma 4.0 3.5 - 5.2 g/dL 04/16/2023 10:01 AM EST [facility] AST, Plasma 26 10 - 50 U/L 04/16/2023 10:01 AM [facility] ALT, Plasma 17 10 - 50 U/L 04/16/2023 10:01 AM EST [facility] Alkaline Phosphatase, Plasma 68 40 - 115 U/L 04/16/2023 10:01 AM EST [facility] Total Bilirubin, Plasma 0.6 0.2 - 1.1 mg/dL 04/16/2023 10:01 AM EST [facility] eGFRcr 108.5 mL/min/1.7 3m*2 04/16/2023 10:01 AM [facility] Comment:Reported eGFRcr in m L/min/1.73m2 is based the CKD-EPI 2020 equation that does not use a race coefficient. Blood Venous blood specimen / Unknown Venipuncture / Unknown 04/16/2023 7:28 AM EST 04/16/2023 8:22 AM EST Tony FOWLER LAB BLOOD ORDERABLES Final Re sult Performing Organization Address City/[facility]/ZIP Co de Phone Number [facility] [address] [place] [address] * Hepatitis panel, acute (04/16/2023 7:28 AM EST) Hepatitis B Surf Antigen Negative Negative 04/16/2023 10:47 AM EST [facility] Hepatitis C Antibody Negative Negative 04/16/2023 10:47 AM EST [facility] Hepatitis A Antibody IgM Negative Negative 04/16/2023 10:47 AM EST [facility] Hepatitis B Core Antibody IgM Negative Negative 04/16/2023 10:47 AM EST [facility] Blood Venous blood specimen / Unknown Venipuncture / Unknown 04/16/2023 7:28 AM EST 04/16/2023 8:25 AM EST Tony FOWLER LAB BLOOD ORDERABLES Final Re sult Performing Organization Address City/[facility]/ZIP Co de Phone Number [facility] [address] [place] [address] * (ABNORMAL) Serum Drug Screen (04/16/2023 7:28 AM EST) 9 Carboxy THC <5 <5 ng/mL 04/17/2023 9:32 PM EST [facility] Alprazolam <5 <5 ng/mL 04/17/2023 9:32 PM EST [facility] Amphetamine <10 <10 ng/mL 04/17/2023 9:32 PM EST [facility] Benzolyecgonine <20 <20 ng/mL 9:32 PM EST [facility] Buprenorphine <1 <1 ng/mL 04/17/2023 9:32 PM EST [facility] Butalbital <50 <50 ng/mL 04/17/2023 9:32 PM EST [facility] Clonazepam <5 <5 ng/mL 04/17/2023 9:32 PM EST [facility] Codeine <5 <5 ng/mL 04/17/2023 9:32 PM EST [facility] Diazepam <5 <5 ng/mL 04/17/2023 9:32 PM EST [facility] Fentanyl <1 <1 ng/mL 04/17/2023 9:32 PM [facility] Hydrocodone <2 <2 ng/mL 04/17/2023 9:32 PM EST [facility] Hydromorphone <5 <5 ng/mL 04/17/2023 9:32 PM EST [facility] Lorazepam 23(H) <5 ng/mL 04/17/2023 9:32 PM EST [facility] MDA <10 <10 ng/mL 04/17/2023 9:32 PM EST [facility] MDMA <10 <10 ng/mL 04/17/2023 9:32 PM [facility] Meperidine <5 <5 ng/mL 04/17/2023 9:32 PM [facility] Methadone <10 <10 ng/mL 04/17/2023 9:32 PM EST [facility] Methadone Metabolite <10 <10 ng/mL 03/2023 9:32 PM [facility] Methamphetamine <10 <10 ng/mL 9:32 PM [facility] Midazolam <5 <5 ng/mL 04/17/2023 9:32 PM [facility] Morphine <2 <2 ng/mL 04/17/2023 9:32 PM EST [facility] Norbuprenorphine <5 <5 ng/mL 04/17/19 9:32 PM EST [facility] Nordiazepam <10 <10 ng/mL 04/17/2023 9:32 PM EST [facility] Oxazepam <5 <5 ng/mL 04/17/2023 9:32 PM EST [facility] Oxycodone 12(H) <2 ng/mL 04/17/2023 9:32 PM EST [facility] Oxymorphone <2 <2 ng/mL 04/17/2023 9:32 PM EST [facility] Phenobarbital <50 <50 ng/mL 04/17/2023 9:32 PM EST [facility] Temazepam <5 <5 ng/mL 04/17/2023 9:32 PM EST [facility] Tramadol <20 <20 ng/mL 04/17/2023 9:32 PM EST [facility] Blood Venous blood specimen / Unknown Venipuncture / Unknown 04/16/2023 7:28 AM EST 04/16/2023 8:32 AM EST Narrative [facility] - 04/17/2023 9:32 PM EST Test performed by LC-MS/MS at the [facility]. This test was developed and its performance characteristics determined by [facility]. It has not been cleared or approved by the FDA. The laboratory is regulated under CLIA as qualified to perform high-complexity testing. This test is used for clinical purposes. us Tony FOWLER LAB BLOOD ORDERABLES Final Re sult [facility] [address] [place] [address] * Levetiracetam level (04/16/2023 7:28 AM EST) Levetiracetam (Keppra) 22.7 12.0 - 46.0 ug/mL 04/16/2023 9:29 PM EST [facility] Blood Venous blood specimen / Unknown Venipuncture / Unknown 04/16/2023 7:28 AM EST 04/16/2023 8:32 AM EST Narrative [facility] - 04/16/2023 9:29 PM EST Test performed by LC-MS/MS at the [facility]. This test was developed and its performance characteristics determined by [facility]. It has not been cleared or approved by the FDA. The laboratory is regulated under CLIA as qualified to perform high-complexity testing. This test is used for clinical purposes. Tony FOWLER LAB BLOOD ORDERABLES Final Re sult Performing Organization Address [place]/[facility] Co de Phone Number [facility] [address] [place] [address] * (ABNORMAL) Topiramate level (04/16/2023 7:28 AM EST) Topiramate <1.0(L) 2.0 - 20.0 ug/mL 04/16/2023 9:36 PM EST [facility] Blood Venous blood specimen / Unknown Venipuncture / Unknown 04/16/2023 7:28 AM EST 04/16/2023 8:32 AM EST Narrative [facility] - 04/16/2023 9:36 PM EST Topiramate Reference Ranges: Anticonvulsant: 5.0 to 20.0 ug/mL Psychiatric: 2.0 to 8.0 ug/mL Test performed by LC-MS/MS at the [facility]. This test was developed and its performance characteristics determined by [facility]. It has not been cleared or approved by the FDA. The laboratory is regulated under CLIA as qualified to perform high-complexity testing. This test is used for clinical purposes. Tony FOWLER LAB BLOOD ORDERABLES Final Re sult Performing Organization Address [place]/[facility] Co de Phone Number [facility] [address] [place] [address] documented in this encounter Visit Diagnoses Diagnosis Routine general medical examination at a health care facility documented in this encounter Care Teams Glue Sprayer Relationship Specialty Start Date End Date Shamika Roy APRN [address] [place] [id number] PCP - General 09/08/23 documented as of this encounter
--- OUTSIDE RECORDS SUMMARY | 2024-11-18 18:39 | XMS_ITS | Clinical Summary ---
Author Organization [facility] Address [address] [place] [id number] Care Team Providers Care Dining Server Name Role Phone Unavailable Primary Care Provider [...] patient's age to complete this topic Insurance [facility] MEDICARE HMO MR [employer] MEDICARE HMO MR
--- OUTSIDE RECORDS SUMMARY | 2024-11-18 18:39 | XMS_ITS | Clinical Summary ---
Author Organization [facility] Address [address], [address] [place] [address] Care Team Providers Care Agronomy Supervisor Name Role Phone Carli Samayoa TYPESETTING SUPERVISOR - LOCAL [place] TRUCK DRIVER Primary Care Provider Allergies Active Allergy Reactions [...] on 40 units of Lantus BID at [facility], Reported on 04/29/2020 insulin aspart (NOVOLOG FLEXPEN) [...] hours Active Cholecalciferol (VITAMIN D3) 1.25 MG ([id number] UT) CAPS Take 1 tablet by mouth [...] file Type:Not on file Address: [address] [place] [id number] [place] [...] Hernandez Spouse Primary Decision Maker Care Teams Agronomy Supervisor Relationship Specialty Start Date End Date Carli Samayoa APRN - LOCAL [place] TRUCK DRIVER [address] [place] [id number] PCP - General Nurse Practitioner 04/16/20
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
[2024-11-18 18:51] LABS: Hematocrit 42.0 % (42.0-52.0); Hemoglobin 14.4 g/dL (14.1-18.0); Immature Granulocytes % 0.4 %; Mean Corpuscular HGB Conc 34.3 g/dL (31.8-35.4); Mean Corpuscular Hemoglobin 29.3 pg (27.0-31.2); Mean Corpuscular Volume 85.5 fl (80-94); Nucleated Red Blood Cells % 0 %; Platelet Count 215 K/mm3 (142-424); Red Blood Count 4.91 M/mm3 (4.60-6.20); Red Cell Distribution Width-SD 42.0 fL; White Blood Count 15.1 K/mm3 (4.8-10.8)
[2024-11-18] MEDS: 0.9 % SODIUM CHLORIDE 1000ML 1,000 ML 999 ML IV (18:55)
[2024-11-18] MEDS: MORPHINE 4MG/ML SYRINGE 4 MG IV (19:05)
[2024-11-18] MEDS: diazePAM 10MG/2ML SYRINGE 2.5 MG IV (19:07)
[2024-11-18] MEDS: ONDANSETRON 4MG/2ML VIAL 4 MG IV (19:11)
[2024-11-18 19:16] LABS: Alanine Aminotransferase 14 U/L (12-78); Albumin Level 4.5 g/dl (3.5-5.0); Albumin/Globulin Ratio 1.4 (1.1-1.8); Alkaline Phosphatase 71 U/L (38-126); Anion Gap 16.6 mEq/L (5-15); Aspartate Amino Transferase 25 U/L (17-59); Bilirubin,Total 0.8 mg/dl (0.2-1.3); Blood Urea Nitrogen 10 mg/dl (9-20); Calcium 9.9 mg/dl (8.4-10.2); Carbon Dioxide 20 mmol/L (22.0-30.0); Chloride 105 mmol/L (98-107); Creatinine Clearance Estimated 111 mL/min (50-200); Creatinine,Serum 1.00 mg/dl (0.66-1.25); Estimated Glomerular Filt Rate 79 ml/min (>60); GFR (African American) 95 ML/MIN (>60); Globulin 3.3 g/dL (1.3-3.2); Glucose 281 mg/dl (74-100); Lipase 71 U/L (23-300); Potassium 3.6 mmoL/L (3.5-5.1); Sodium 138 mmol/L (136-145); Total Protein,Serum 7.8 g/dl (6.3-8.2)
[2024-11-18 19:19] LABS: Magnesium 1.9 mg/dl (1.6-2.3)
[2024-11-18 19:21] LABS: D-Dimer 1.14 ug/mL (0.0-0.5)
[2024-11-18 19:28] LABS: Total Cells Counted 100
[2024-11-18 19:29] LABS: RBC Morphology Normal
[2024-11-18 19:30] LABS: Troponin I 0.05 ng/ml (0.00-0.034)
--- NOTE | 2024-11-18 20:23 | CT_ITS ---
PROCEDURE INFORMATION: Exam: CTA Chest With Contrast Exam date and time: 11/18/2024 8:46 PM Age: 49 years old Clinical indication: Other: Chest pain, tachycardic; Additional info: Earl morrow TECHNIQUE: Imaging protocol: Computed tomographic angiography of the chest with contrast. Exam focused on the arteries. 3D rendering (Not supervised by radiologist): MIP and/or 3D reconstructed images were created by the technologist. Radiation optimization: All CT scans at this facility use at least one of these dose optimization techniques: automated exposure control; mA and/or kV adjustment per patient size (includes targeted exams where dose is matched to clinical indication); or iterative reconstruction. Contrast material: ISO; Contrast volume: 80 ml; Contrast route: INTRAVENOUS (IV); COMPARISON: CT ANGIO CHEST 08/03/2024 1:35 PM FINDINGS: Pulmonary arteries: No pulmonary emboli. Aorta: No aortic aneurysm. No aortic dissection. Lungs: Hazy ground-glass opacities in both lower lobes with occasional subsegmental sparing or air trapping. No airspace consolidation or nodules. Pleural spaces: No pneumothorax. No pleural effusion. Heart: No cardiomegaly. No pericardial effusion. Coronary arteries: Lad coronary artery stent. Lymph nodes: Calcified left hilar and subaortic lymph nodes. Bones/joints: No acute fracture. Soft tissues: No soft tissue masses. IMPRESSION: 1. No pulmonary emboli. No aortic aneurysm or intimal dissection. 2. Ground-glass opacities in both lung bases are an interval change since 08/03/2024 and could represent pulmonary edema or pneumonia. 3. Prior granulomatous infection.
[2024-11-18] MEDS: IOPAMIDOL-370 (76%);100ML BOTTLE 80 ML IV (20:50)
[2024-11-18] MEDS: 0.9 % SODIUM CHLORIDE 50 ML VIAL IV (20:50)
[2024-11-18] MEDS: SODIUM CHLORIDE 0.9% 10ML SYR (RAD ONLY) 10 ML IV (20:50)
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
--- NOTE | 2024-11-18 21:29 | ECG_ITS ---
APPROVED REPORT Exam: Resting ECG HR:81 bpm ECG Measurements Heart Rate 81 AXES ME 168 P 49 QRSd 91 QRS 38 QT 367 T 65 QTc 405 Conclusion SINUS RHYTHM LOW QRS VOLTAGE IN PRECORDIAL LEADS [QRS DEFLECTION < 1.0 mV IN CHEST LEADS] BORDERLINE ECG Electronically signed by : YANELIS HAIR, 12/05/2024 08:43:56
[2024-11-18] MEDS: OXYCODONE 10MG W/APAP 325MG TABLET 1 EACH PO (21:44)
[2024-11-18] MEDS: METHOCARBAMOL 500MG TABLET 1000 MG PO (21:44)
--- NOTE | 2024-11-18 22:24 | PC.NURSE ---
Report called to PARMINDER Ga
[2024-11-18 22:27] LABS: Troponin I 0.04 ng/ml (0.00-0.034)
--- NOTE | 2024-11-18 22:44 | PC.NURSE ---
Patient arrived to floor via stretcher from ED at 22:43.
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
[2024-11-19] VITALS (7 sets, daily range): BP systolic 102–144; BP diastolic 53–91; PULSE 66–98; RESP 14–18; TEMP 36.4–36.8; O2SAT 93–97; BMI 28.8
[2024-11-19 00:02] LABS: Procalcitonin 0.148 ng/mL (0.0-2.0)
--- NOTE | 2024-11-19 00:03 | PC.WOUNDNOTE ---
abrasion, redness, bruising to right shoulder bruising, redness, skin lac above right eye redness left arm redness, bruising right arm redness, scratches left arm scratches left shoulder redness, abrasion left knee scabbing right knee abrasion right knee left foot scab right ankle bruising, swelling to nose bruising to back of head
[2024-11-19] MEDS: PATIENT'S OWN HOME MEDICATION (Ranolazine 1,000 mg tablet extended release 12 hr) 1000 EACH PO (00:48)
[2024-11-19 01:03] LABS: POC Glucose,Bedside 181 gm/dL (70-110)
[2024-11-19 01:34] LABS: Troponin I 0.04 ng/ml (0.00-0.034)
[2024-11-19] MEDS: HYDROCODONE/APAP 5/325 MG TABLET 1 TAB PO ×4 (03:22→23:52)
[2024-11-19] MEDS: OXYCODONE 5MG IMMEDIATE RELEASE TABLET 10 MG PO ×4 (04:11→20:02)
[2024-11-19 05:25] LABS: Amphetamine/Metha Screen,Urine Negative ng/ml (<1000); Barbiturates Screen,Urine Negative ng/ml (<200)
[2024-11-19 05:26] LABS: Benzodiazepines Screen,Urine Negative ng/ml (<200)
[2024-11-19 05:28] LABS: Methadone Screen,Urine Negative ng/ml (<300); Opiate Screen,Urine Positive ng/ml (<300)
[2024-11-19 05:29] LABS: Phencyclidine Screen,Urine Negative ng/ml (<25)
[2024-11-19 06:16] LABS: Anion Gap 12.4 mEq/L (5-15); Blood Urea Nitrogen 9 mg/dl (9-20); Calcium 8.6 mg/dl (8.4-10.2); Carbon Dioxide 23 mmol/L (22.0-30.0); Chloride 106 mmol/L (98-107); Creatinine Clearance Estimated 133 mL/min (50-200); Creatinine,Serum 0.90 mg/dl (0.66-1.25); Estimated Glomerular Filt Rate 89 ml/min (>60); GFR (African American) 108 ML/MIN (>60); Glucose 281 mg/dl (74-100); Potassium 3.4 mmoL/L (3.5-5.1); Sodium 138 mmol/L (136-145)
[2024-11-19] MEDS: humaLOG 100 UNITS/ML 10ML VIAL (SSI) SUBCUT ×3 (06:17→20:15)
[2024-11-19 06:34] LABS: Hematocrit 40.1 % (42.0-52.0); Immature Granulocytes % 0.3 %; Mean Corpuscular HGB Conc 32.2 g/dL (31.8-35.4); Mean Corpuscular Hemoglobin 28.4 pg (27.0-31.2); Mean Corpuscular Volume 88.3 fl (80-94); Nucleated Red Blood Cells % 0 %; Platelet Count 171 K/mm3 (142-424); Red Blood Count 4.54 M/mm3 (4.60-6.20); Red Cell Distribution Width-SD 44.0 fL; White Blood Count 10.3 K/mm3 (4.8-10.8)
[2024-11-19 06:54] LABS: Hemoglobin 13.1 g/dL (14.1-18.0)
[2024-11-19 08:15] LABS: NT Pro Brain Natriuretic Pep. 312 pg/mL (0-125)
--- NOTE | 2024-11-19 08:16 | HMH.PHAINT1 ---
Pharmacy Intervention Comments: home medication list verified suing list from most recent discharge from this facility 11-16-24
[2024-11-19] MEDS: RANOLAZINE 500MG ER TABLET 1000 MG PO ×2 (09:01→20:03)
[2024-11-19] MEDS: CALCITRIOL 0.25MCG CAPSULE 0.25 MCG PO (09:02)
[2024-11-19] MEDS: FOLIC ACID 1MG TABLET 1 MG PO (09:02)
[2024-11-19] MEDS: ISOSORBIDE MONO 60MG TAB.ER.24H 60 MG PO (09:02)
[2024-11-19] MEDS: IRBESARTAN 75MG TABLET 37.5 MG PO (09:03)
[2024-11-19] MEDS: EMPAGLIFLOZIN 25MG TABLET 25 MG PO (09:03)
[2024-11-19] MEDS: CLOPIDOGREL 75MG TAB 75 MG PO (09:04)
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
[2024-11-19] MEDS: METOPROLOL SUCCINATE XL 100MG TABLET 100 MG PO (10:12)
[2024-11-19] MEDS: POTASSIUM CHLORIDE 10MEQ CAPSULE.ER 10 MEQ PO (10:12)
[2024-11-19] MEDS: BACLOFEN 10MG TABLET 10 MG PO ×4 (10:12→20:03)
[2024-11-19 10:29] LABS: POC Glucose,Bedside 137 gm/dL (70-110)
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
[2024-11-19 17:53] LABS: POC Glucose,Bedside 290 gm/dL (70-110)
--- NOTE | 2024-11-19 17:54 | PC.NURSE ---
AOX4, AMBULATES IN ROM INDEPENDENTLY. TOLERATING ROOM AIR. MEDICATED PER MAR WITH PRN PAIN MEDICATION.
[2024-11-19] MEDS: TOPIRAMATE 25MG TABLET 25 MG PO (20:03)
[2024-11-19] MEDS: ATORVASTATIN 10MG TABLET 10 MG PO (20:16)
[2024-11-19 20:26] LABS: POC Glucose,Bedside 206 gm/dL (70-110)
[2024-11-20] MEDS: OXYCODONE 5MG IMMEDIATE RELEASE TABLET 10 MG PO ×5 (01:51→21:33)
--- NOTE | 2024-11-20 02:59 | PC.NURSE ---
Pt AOx4. No significant changes at this time. VSS. Pt has had some pain that has been controlled with prn medications. Currently resting in bed with eyes open. Respirations even and unlabored. Bed is low, locked, and call light is in reach.
[2024-11-20 04:00] VITALS: BP 110/71; PULSE 63; RESP 14; TEMP 36.7; O2SAT 96; BMI 28.8
[2024-11-20] MEDS: HYDROCODONE/APAP 5/325 MG TABLET 1 TAB PO ×5 (05:00→23:07)
[2024-11-20] MEDS: humaLOG 100 UNITS/ML 10ML VIAL (SSI) SUBCUT ×2 (05:16→11:42)
[2024-11-20 05:19] LABS: POC Glucose,Bedside 232 gm/dL (70-110)
[2024-11-20 08:00] VITALS: BP 132/77; PULSE 65; RESP 16; TEMP 36.6; O2SAT 99
[2024-11-20] MEDS: RANOLAZINE 500MG ER TABLET 1000 MG PO ×2 (08:06→20:29)
[2024-11-20] MEDS: ISOSORBIDE MONO 60MG TAB.ER.24H 60 MG PO (08:06)
[2024-11-20] MEDS: FOLIC ACID 1MG TABLET 1 MG PO (08:06)
[2024-11-20] MEDS: BACLOFEN 10MG TABLET 10 MG PO ×4 (08:06→20:29)
[2024-11-20] MEDS: METOPROLOL SUCCINATE XL 100MG TABLET 100 MG PO (08:07)
[2024-11-20] MEDS: CLOPIDOGREL 75MG TAB 75 MG PO (08:07)
[2024-11-20] MEDS: POTASSIUM CHLORIDE 10MEQ CAPSULE.ER 10 MEQ PO (08:07)
[2024-11-20] MEDS: EMPAGLIFLOZIN 25MG TABLET 25 MG PO (08:07)
[2024-11-20] MEDS: IRBESARTAN 75MG TABLET 37.5 MG PO (08:08)
[2024-11-20 08:26] LABS: POC Glucose,Bedside 143 gm/dL (70-110)
[2024-11-20 12:00] VITALS: BP 132/77; PULSE 68; RESP 16; TEMP 36.7; O2SAT 97
[2024-11-20 16:00] VITALS: BP 153/75; PULSE 73; RESP 16; TEMP 36.7; O2SAT 98
[2024-11-20] MEDS: PREGABALIN 100MG CAPSULE 200 MG PO ×2 (16:44→20:29)
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
[2024-11-20 19:15] LABS: POC Glucose,Bedside 113 gm/dL (70-110)
[2024-11-20 19:15] LABS: POC Glucose,Bedside 201 gm/dL (70-110)
[2024-11-20 20:00] VITALS: BP 122/73; PULSE 67; RESP 16; TEMP 36.6; O2SAT 99
[2024-11-20 20:26] LABS: POC Glucose,Bedside 138 gm/dL (70-110)
[2024-11-20] MEDS: TOPIRAMATE 25MG TABLET 25 MG PO (20:29)
[2024-11-20] MEDS: ATORVASTATIN 10MG TABLET 10 MG PO (20:29)
[2024-11-20] MEDS: FENOFIBRATE 54MG TABLET 54 MG PO (20:29)
--- NOTE | 2024-11-20 21:14 | PC.NURSE ---
this nurse attempted to give pt scheduled pain medications. Pt requests both his scheduled pain medication and PRN pain medication at this time. This nurse attempted to educate pt but was not successful despite multiple attempts. Pt became belligerent as he did not understand the change in his medications. Charge nurse and tech x2 present and aware as pt started to raise his voice at this nurse. Pt did request another nurse for his care. Contacted Dr. Can at this time to educate and consult with pt about his medication regimen. Report given to PARMINDER Hou.
--- NOTE | 2024-11-20 21:33 | EXP.EVENT.NO ---
Patient frustrated about his pain medication regimen. Takes oxycodone every 4 hours at home. Ordered as needed but takes it scheduled. Transition to his home regimen. Scheduled oxycodone every 4 hours. Decreased hydrocodone for breakthrough to every 6 as needed. Lyrica is resumed.
[2024-11-21] VITALS: BP 98/60; PULSE 65; RESP 16; TEMP 36.5; O2SAT 97
--- NOTE | 2024-11-21 03:19 | PC.NURSE ---
Pt AOx4. Reported some pain earlier in the shift with relief from pain medication. Currently resting in bed with eyes closed. Respirations even and unlabored. Bed is low, locked, and call light is in reach.
[2024-11-21 04:00] VITALS: BP 126/63; PULSE 71; RESP 16; TEMP 36.6; O2SAT 98; BMI 28.7
[2024-11-21 05:32] LABS: POC Glucose,Bedside 262 gm/dL (70-110)
[2024-11-21] MEDS: humaLOG 100 UNITS/ML 10ML VIAL (SSI) SUBCUT ×3 (05:33→20:02)
[2024-11-21] MEDS: OXYCODONE 5MG IMMEDIATE RELEASE TABLET 10 MG PO ×5 (05:33→20:30)
[2024-11-21] MEDS: HYDROCODONE/APAP 5/325 MG TABLET 1 TAB PO ×3 (07:30→22:06)
[2024-11-21 07:38] VITALS: BP 117/75; PULSE 68; RESP 16; TEMP 36.4; O2SAT 95
--- NOTE | 2024-11-21 08:04 | PC.NURSE ---
patient complaining of left sided chest/rib pain under breast area, rates pain 7/10 and mainly hurts on inspiration. norco given for pain, md aware. no ekg needed per md
[2024-11-21 09:08] LABS: POC Glucose,Bedside 286 gm/dL (70-110)
[2024-11-21] MEDS: BACLOFEN 10MG TABLET 10 MG PO ×4 (09:14→20:03)
[2024-11-21] MEDS: POTASSIUM CHLORIDE 10MEQ CAPSULE.ER 10 MEQ PO (09:15)
[2024-11-21] MEDS: CLOPIDOGREL 75MG TAB 75 MG PO (09:15)
[2024-11-21] MEDS: PREGABALIN 100MG CAPSULE 200 MG PO ×3 (09:16→20:03)
[2024-11-21] MEDS: FOLIC ACID 1MG TABLET 1 MG PO (09:16)
[2024-11-21] MEDS: EMPAGLIFLOZIN 25MG TABLET 25 MG PO (09:16)
[2024-11-21] MEDS: IRBESARTAN 75MG TABLET 37.5 MG PO (09:16)
[2024-11-21] MEDS: RANOLAZINE 500MG ER TABLET 1000 MG PO ×2 (09:16→20:03)
[2024-11-21 11:16] LABS: POC Glucose,Bedside 252 gm/dL (70-110)
[2024-11-21 12:00] VITALS: BP 156/90; PULSE 75; RESP 18; TEMP 36.7; O2SAT 99
--- NOTE | 2024-11-21 15:38 | PC.NURSE ---
VS stable and patient remained on room air. PRN pain medication given due to pain in left chest/rib area. Lung sounds clear.
[2024-11-21 16:00] VITALS: BP 142/89; PULSE 82; RESP 18; TEMP 36.8; O2SAT 99
[2024-11-21 16:57] LABS: POC Glucose,Bedside 105 gm/dL (70-110)
[2024-11-21 17:21] LABS: Adenovirus,PCR Not Detected (NotDetected); Chlamydophila Pneumoniae, PCR Not Detected (NotDetected); Coronavirus 19, PCR Not Detected (NotDetected); Coronovirus HKU1,PCR Not Detected (NotDetected); Influenza A, PCR Not Detected (NotDetected); Influenza AH1, 2009 Not Detected (NotDetected); Influenza AH1, PCR Not Detected (NotDetected); Influenza AH3,PCR Not Detected (NotDetected); Influenza B, PCR Not Detected (NotDetected); Mycoplasma Pneumoniae, PCR Not Detected (NotDetected); Parainfluenza 1, PCR Not Detected (NotDetected); Parainfluenza 2, PCR Not Detected (NotDetected); Parainfluenza 3, PCR Not Detected (NotDetected); Parainfluenza 4, PCR Not Detected (NotDetected)
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
[2024-11-21 20:00] VITALS: BP 146/68; PULSE 78; RESP 16; TEMP 36.5; O2SAT 96
[2024-11-21 20:02] LABS: POC Glucose,Bedside 195 gm/dL (70-110)
[2024-11-21] MEDS: TOPIRAMATE 25MG TABLET 25 MG PO (20:03)
[2024-11-21] MEDS: FENOFIBRATE 54MG TABLET 54 MG PO (20:03)
[2024-11-21] MEDS: ATORVASTATIN 10MG TABLET 10 MG PO (20:03)
[2024-11-21] MEDS: LIDOCAINE 5% TRANSDERMAL PATCH 1 EACH TD (22:07)
[2024-11-22] VITALS: BP 111/55; PULSE 73; RESP 16; TEMP 36.7; O2SAT 97
[2024-11-22] MEDS: OXYCODONE 5MG IMMEDIATE RELEASE TABLET 10 MG PO ×4 (00:35→12:32)
[2024-11-22 04:00] VITALS: BP 143/77; PULSE 77; RESP 16; TEMP 36.6; O2SAT 97; BMI 28.8
[2024-11-22] MEDS: humaLOG 100 UNITS/ML 10ML VIAL (SSI) SUBCUT ×2 (05:21→11:00)
[2024-11-22 08:00] VITALS: BP 155/87; PULSE 80; RESP 19; TEMP 36.8; O2SAT 96
[2024-11-22 08:38] LABS: POC Glucose,Bedside 230 gm/dL (70-110)
[2024-11-22] MEDS: PREGABALIN 100MG CAPSULE 200 MG PO ×2 (08:41→12:16)
[2024-11-22] MEDS: RANOLAZINE 500MG ER TABLET 1000 MG PO (08:41)
[2024-11-22] MEDS: FOLIC ACID 1MG TABLET 1 MG PO (08:43)
[2024-11-22] MEDS: BACLOFEN 10MG TABLET 10 MG PO ×2 (08:43→12:16)
[2024-11-22] MEDS: CALCITRIOL 0.25MCG CAPSULE 0.25 MCG PO (08:43)
[2024-11-22] MEDS: POTASSIUM CHLORIDE 10MEQ CAPSULE.ER 10 MEQ PO (08:44)
[2024-11-22] MEDS: EMPAGLIFLOZIN 25MG TABLET 25 MG PO (08:44)
[2024-11-22] MEDS: CLOPIDOGREL 75MG TAB 75 MG PO (08:44)
[2024-11-22] MEDS: METOPROLOL SUCCINATE XL 25MG TABLET 25 MG PO (08:44)
[2024-11-22] MEDS: IRBESARTAN 75MG TABLET 37.5 MG PO (08:44)
[2024-11-22] MEDS: HYDROCODONE/APAP 5/325 MG TABLET 1 TAB PO (10:23)
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
[2024-11-22 11:01] LABS: POC Glucose,Bedside 186 gm/dL (70-110)
--- NOTE | 2024-11-22 11:06 | PC.NURSE ---
pt stated he can't remember the exact date of when his last bowel movement was but he states I have had one while being in the hospital. Miralax refused. TRUE Monroy aware.
[2024-11-22 11:52] VITALS: BP 152/82; PULSE 83; RESP 20; TEMP 36.9; O2SAT 100
[2024-11-22 21:09] LABS: POC Glucose,Bedside 217 gm/dL (70-110)
--- NOTE | 2024-11-23 10:12 | SW/DCPLANNER ---
Spoke with patient on the phone. Patient stated that he is doing too good there. Patient stated that where he is living at [facility] they are keeping track and taking him to all of his appointments. Patient stated that he was able to get his [facility] medicine [facility]. Patient stated that he has no concerns or questions at this time. Steff Hand
== END 2024-11-22 15:10 | disposition home or self-care (01) ==
LOC: ER 22:08 → 2ND 22:12
PROVIDERS: Nurse Practitioner Family; Student in an Organized Health Care Education/Training Program; Admitting Provider Internal Medicine Adolescent Medicine; Emergency Provider Emergency Medicine; PCP Nurse Practitioner; Visit Provider Internal Medicine Adolescent Medicine
DX: I21.4 Non-ST elevation (NSTEMI) myocardial infarction (principal); S20.212A Contusion of left front wall of thorax, initial encounter; I10 Essential (primary) hypertension; E78.5 Hyperlipidemia, unspecified; G89.4 Chronic pain syndrome; F41.9 Anxiety disorder, unspecified; F32.A Depression, unspecified; G43.909 Migraine, unspecified, not intractable, without status migrainosus; G40.909 Epilepsy, unspecified, not intractable, without status epilepticus; E11.42 Type 2 diabetes mellitus with diabetic polyneuropathy; F17.210 Nicotine dependence, cigarettes, uncomplicated; F39 Unspecified mood [affective] disorder; R79.89 Other specified abnormal findings of blood chemistry; R91.8 Other nonspecific abnormal finding of lung field; Z86.73 Personal history of transient ischemic attack (TIA), and cerebral infarction without residual deficits; Z95.5 Presence of coronary angioplasty implant and graft; Z88.6 Allergy status to analgesic agent; Z88.8 Allergy status to other drugs, medicaments and biological substances; Z91.030 Bee allergy status; Z79.02 Long term (current) use of antithrombotics/antiplatelets; Z79.4 Long term (current) use of insulin; Z79.899 Other long term (current) drug therapy; Y09 Assault by unspecified means
CPT/HCPCS: 0223U; 36415; 70450; 71250; 71275; 72125; 80048; 80053; 80307; 82962; 83690; 83735; 83880; 84145; 84484; 85007; 85025; 85027; 85378; 93005; 96361; 96372; 96374; 96375; 97162; 97166; 99285; G0378; J1650; J2270; J2405; J3360; J7030; Q9967

== ENCOUNTER 2025-03-15 17:58 | Emergency (ER) | payer MEDICARE, MEDICAID, SELFPAY ==
[2025-03-15 17:59] VITALS: BP 128/78; PULSE 74; RESP 16; TEMP 36.6; O2SAT 98; BMI 26.1
--- OUTSIDE RECORDS SUMMARY | 2025-03-15 18:05 | XMS_ITS | Encounter Summary ---
Author Organization Healthcare Address [address] [place] [address] Care Team Providers Care Religion Professor Name Role Phone Shamika Roy APRN Primary Care Provider [phone] Encounter Details Date Type Department Care Team (Late st Contact Info) Description 12/03/2023 Orders Only External Location [address] [place] [address] Mikey Hernandez MD [address] [place], [place] [id number] Social History Tobacco Use Types Packs/Day Years [...] place to sleep or slept in a alf (including now)? No 09/08/2023 Utilities Answer Date [...] as of this encounter Plan of Treatment Upcoming Encounters Date Type Department Care Team (Late st Contact Info) Description 03/21/2025 3:30 PM EST Office Visit [facility] [address] [place] [address] Nikolai Arana MBBS [address] [phone] documented as of this encounter Procedures Procedure [...] documented as of this encounter Care Teams Religion Professor Relationship Specialty Start Date End Date Shamika Roy APRN [address] [place] [address] PCP - General 09/08/23 documented as of this encounter
--- OUTSIDE RECORDS SUMMARY | 2025-03-15 18:05 | XMS_ITS | Encounter Summary ---
Author Organization Healthcare Address [address] [place] [address] Care Team Providers Care Credit Rating Inspector Name Role Phone Shamika Roy APRN Primary Care Provider [phone] Encounter Details Date Type Department Care Team (Late st Contact Info) Description 05/22/2023 Orders Only External Location [address] [place] [id number] Provider, External Social History Tobacco Use Types [...] Description 03/21/2025 3:30 PM EST Office Visit [facility] [address] [place] [address] Nikolai Arana MBBS [address] [place] [address] documented as of this encounter Procedures Procedure [...] on filedocumented in this encounter Care Teams Credit Rating Inspector Relationship Specialty Start Date End Date Shamika Roy, [employer] [facility] [place] [address] PCP - General 09/08/23 documented as of this encounter
--- OUTSIDE RECORDS SUMMARY | 2025-03-15 18:05 | XMS_ITS | Encounter Summary ---
Author Organization Healthcare Address [address] [id number] Care Team Providers Care Correctional Counselor/Case Manager Name Role Phone Shamika Roy APRN Primary Care Provider [phone] Reason for Visit * Reason Comments Med Refill Encounter Details Date Type Department Care Team (Late st Contact Info) Description 12/27/2024 Refill [facility] [address] [place] [address] Nikolai Arana MBBS [address] [place] [address] Social History Tobacco Use Types Packs/Day Years [...] often do you attend chur ch or anabaptism services? Never 09/09/2024 Do you belong to any clubs o r organizations such as rastafarian groups, unions, fraternal or athletic groups, or [...] more drinks on one occasion? Never 09/09/2024 [facility] - Occupational [...] any time in the past 12 m [facility], were you homeless or living [...] Description 03/21/2025 3:30 PM EST [facility] [address] [place] [address] Nikolai Arana MBBS [address] [phone] documented as of this encounter Visit Diagnoses Not on filedocumented in this encounter Additional Health Concerns Assessment Noted Time A fall risk assessment has been complete d for the patient 01/01/2024 9:51 AM EDT A Body Mass Index follow-up plan has been documented for the patient 09/10/2024 9:38 AM EDT documented as of this encounter Care Teams Correctional Counselor/Case Manager Relationship Specialty Start Date End Date Shamika Roy APRN [address] [place] [address] PCP - General 09/08/23 documented as of this encounter
--- OUTSIDE RECORDS SUMMARY | 2025-03-15 18:05 | XMS_ITS | Clinical Summary ---
Author Organization [facility] Address [address] [place] [address] Care Team Providers Care Chisel Trimmer Name Role Phone Shamika Roy APRN Primary Care Provider [phone] [phone] Allergies Active Allergy Reactions Criticality Noted Date [...] 1 tablet by mouth daily. 4 Active calcitriol (Rocaltrol) 0.25 MCG capsuleIndicatio [...] as needed for nausea or vomiting. Active clopidogrel (Plavix) 75 MG tabletIndication s:Acute Coronary Syndrome,Transie nt Ischemic Attacks Take 1 tablet by mouth daily. 90 tablet 5 Active rosuvastatin (Crestor) 10 MG tablet TAKE 1 TABLET(10 MG) BY MOUTH ONCE DAILY IN THE EVENING 90 tablet 3 Active Active Problems Problem Noted Date Diagnosed Date Borderline personality disorder 09/10/2024 Diabetes 09/10/2024 Seizure disorder 09/10/2024 HTN (hypertension) 09/10/2024 HLD (hyperlipidemia) 09/10/2024 Chronic pain 09/10/2024 Nicotine use disorder 09/10/2024 History of TIA (transient ischemic attack) 11/09 History of ischemic stroke 11/10/2023 Stroke-like symptoms 09/07/2023 Encounters Date Type Department Care Team Description 12/30/2024 [facility]ill [place] [facility] [address], [address] [place] [address] Nikolai Arana MBBS 12/27/2024 [place] [facility] [address], [address] [place] [address] Nikolai Arana MBBS from Last 3 Months Social History Tobacco [...] Never 09/09/2024 [facility] often do you attend [facility]? Never 09/09/2024 Do you belong to any clubs o r organizations such as muslim groups, unions, fraternal or athletic groups, or [...] more drinks on one occasion? Never 09/09/2024 [facility] [place] [facility] - Occupational Stress [...] any time in the past 12 m [facility], were you homeless or living in a mcc (including now)? No 09/09/2024 Utilities Answer Date [...] 09/09/2024 7:00 PM EDT Plan of Treatment Upcoming Encounters Date Type Department Care Team (Late st Contact Info) Description 03/21/2025 3:30 PM EST Office Visit [place] [facility] [address], [address] [place] [address] Nikolai Arana MBBS [address] [place] [address] Health Maintenance Due Date Last Done Comments [...] 2018 Sigmoidoscopy 2018 [facility]-Colorectal Cancer Screening 2018 [id number] Vaccine (3 - 2024- season) 2024 01/09/2024, 12/13/2022 [facility]-Influenza Vaccine (#1) 11/15/202401/08, 11/14/2022, 01/12/2014, Additional history exists [facility]-Zoster Vaccines (2 of 3) 11/26/2024 10/01/2024, 09/23/2023 [facility]-Diabetes: Hemoglobin A1C 12/09/2024, 09/07/2023, 04/16/2023 [facility]- SDOH Screenings 03/11/2025 [facility]-Adult SDOH Screenings 03/11/2025 09/09/2024 [facility]-Depression Screening 09/09/2025 09/09/2024 [facility]-HIV Screening Completed 09/07/2023 [facility]-Hepatitis C Screening Completed 09/07/2023, [facility]-Obesity Intervention Completed 025, 01/01/2024, 01/01/2024, Additional history exists HPV Vaccines (No Doses Required) Completed [facility]-HIB Vaccines Aged Out No longer e [...] Procedure Name Priority Date/Time Associated Diagnosis Comments HEMOGLOBIN A1C STAT 09/09/2024 9:57 AM EDT HEPATITIS C ANTIBODY - ED W/REFLEX TO HCV QUANT PCR STAT 09/07/2023 6:31 PM EDT ED HIV 1/2 ANTIBODY/ANTIGEN SCREEN WITH REFLEX TO HIV I/II DIFFERENTIATION STAT 09/07/2023 6:31 PM EDT from Last 3 Months or Most Recently Relevant to Health Maintenance Results * (ABNORMAL) Hemoglobin A1c (09/09/2024 9:57 AM EDT) Hemoglobin A1c 10.7(H) <5.7 % 09/09/2024 1:22 PM EDT [facility] Blood Venous blood specimen / Unknown Venipuncture / Unknown 09/09/2024 9:57 AM EDT 09/09/2024 9:57 AM EDT Narrative [facility] - 09/09/2024 1:22 PM EDT HA1C Interpretive Data: Diagnosis of Diabetes: Diabetic > or = 6.5% Pre-diabetic 5.7 to 6.4% Non-diabetic < or = 5.6% Glycemic Targets for Type I and Type II Diabetics: Non- Adults <7.0% Adults <6.0% Children and Adolescents <7.5% Source: [place] Diabetes Association. Standards of medical care in diabetes,2017. Diabetes Care.2017:40 (suppl 1):S1-S135. us Jose Alberto Quiroga MD LAB BLOOD ORDERABLES Final Result [facility] [address] [place] [address] * Hepatitis C Antibody - ED (09/07/2023 6:31 PM EDT) Hepatitis C Antibody Negative Negative 09/07/2023 6:31 PM EDT [facility] Blood Venous blood specimen / Unknown 09/07/2023 5:51 PM EDT Aron Lala MD LAB BLOOD ORDERABLES Final Re sult Performing Organization Address City/[facility]/ZIP Co de Phone Number [facility] [address] [place] [address] * ED HIV 1/2 Antibody/Antigen Screen w/Reflex to HIV 1/2 Differentiation (09/07/2023 6:31 PM EDT) Pathologist [facility] HIV 1 & 2 Antibody/Antigen Screen Non Reactive Non Reactive 09/07/2023 6:31 PM EDT [facility] Comment:Screening for HIV 1 & 2 antibodies, and P24 antigen is NONREACTIVE. No confirmatory testing is required. Blood Venous blood specimen / Unknown 09/07/2023 5:50 PM EDT Aron Lala MD LAB BLOOD ORDERABLES Final Re sult Performing Organization Address City/[facility] Co de Phone Number [facility] [address] [place] [address] from Last 3 Months or Most Recently Relevant to Health Maintenance Insurance MEDICARE [employer] Advance Directives * Full Code (Latest Code [...] Patient has decision-making capacity? Yes Care Teams Chisel Trimmer Relationship Specialty Start Date End Date Shamika Roy, TRUE [address] [place] [address] PCP - General 09/08/23
--- OUTSIDE RECORDS SUMMARY | 2025-03-15 18:05 | XMS_ITS | Encounter Summary ---
Author Organization Healthcare Address [address] [place] [address] Care Team Providers Care Entry Level Account Executive Name Role Phone Shamika Roy APRN Primary Care Provider [phone] [phone] Encounter Details Date Type Department Care Team (Late st Contact Info) Description 12/03/2023 Orders Only External Location [address] [place] [address] Mikey Hernandez MD [address] [place], [place] [phone] Social History Tobacco Use Types Packs/Day Years [...] place to sleep or slept in a fpc (including now)? No 09/08/2023 Utilities Answer Date [...] Description 03/21/2025 3:30 PM EST Office Visit [facility] [address], 1st [place] [address] Nikolai Arana MBBS [address] [place] [phone] documented as of this encounter Procedures Procedure [...] documented as of this encounter Care Teams Entry Level Account Executive Relationship Specialty Start Date End Date Shamika Roy APRN [address] [place] [address] PCP - General 09/08/23 documented as of this encounter
--- OUTSIDE RECORDS SUMMARY | 2025-03-15 18:05 | XMS_ITS | Encounter Summary ---
Author Organization Healthcare Address [address] [place] [address] Care Team Providers Care Tool Trouble Shooter Name Role Phone Shamika Roy APRN Primary Care Provider [phone] [phone] Encounter Details Date Type Department Care Team (Late st Contact Info) Description 06/03/2023 Orders Only External Location [address] [place] [address] Provider, External Social History Tobacco Use Types [...] Description 03/21/2025 3:30 PM EST Office Visit [place] [facility] [address], [address] [place] [address] Nikolai Arana MBBS [address] [place] [address] documented as of this encounter Procedures Procedure [...] on filedocumented in this encounter Care Teams Tool Trouble Shooter Relationship Specialty Start Date End Date Shamika Roy APRN [facility] [place] [address] PCP - General 09/08/23 documented as of this encounter
--- OUTSIDE RECORDS SUMMARY | 2025-03-15 18:05 | XMS_ITS | Encounter Summary ---
Author Organization Healthcare Address [address] [place] [address] Care Team Providers Care Ripsaw Matcher Name Role Phone Shamika Roy APRN Primary Care Provider [phone] Encounter Details Date Type Department Care Team (Late st Contact Info) Description 04/16/2023 Lab Requisition [facility] [address] [place] [address] Tony Rios PA [address] [place] [id number] Routine general medical examination at a health [...] Visit [place] [facility] [address], [address] [place] [address] Nikolai Arana MBBS [address] [place] [phone] documented as of this encounter Procedures Procedure [...] EST Routine general medical examination at a [facility] care facility TSH Routine 04/16/2023 7:28 AM EST Routine general medical examination at a [facility] care facility FREE T4, PLASMA Routine 04/16/2023 7:28 AM EST Routine general medical examination at a [facility] care facility HEMOGLOBIN A1C Routine 04/16/2023 7:28 AM EST Routine general medical examination at a [facility] care facility LIPID PROFILE, PLASMA Routine 04/16/2023 7:28 AM EST Routine general medical examination at a [facility] care facility COMPREHENSIVE METABOLIC PANEL, PLASMA Routine 04/16/2023 7:28 AM EST Routine general medical examination at a [facility] care facility documented in this encounter Results * TSH (04/16/2023 7:28 AM EST) Thyroid Stimulating Hormone, Plasma 2.48 0.40 - 4.20 uIU/mL 04/16/2023 10:01 AM EST [facility] Blood Venous blood specimen / Unknown Venipuncture / Unknown 04/16/2023 7:28 AM EST 04/16/2023 8:22 AM EST us Tony FOWLER LAB BLOOD ORDERABLES Final Re sult [facility] [address] [place] [address] * T4, free (04/16/2023 7:28 AM EST) Free T4, Plasma 1.3 0.8 - 1.7 ng/dL 04/16/2023 10:01 AM EST [facility] Blood Venous blood specimen / Unknown Venipuncture / Unknown 04/16/2023 7:28 AM EST 04/16/2023 8:22 AM EST us Tony FOWLER LAB BLOOD ORDERABLES Final Re sult [facility] [address] [place] [address] * (ABNORMAL) CBC and Differential (04/16/2023 7:28 AM EST) Pathologist [facility] WBC Count 10.50(H) 3.70 - 10.30 10*3/uL LAB HEMATOLOGY METHOD 04/16/2023 9:38 AM EST [facility] RBC Count 4.77 4.60 - 6.10 10*6/uL LAB HEMATOLOGY METHOD 04/16/2023 9:38 AM EST [facility] HGB 13.5(L) 13.7 - 17.5 g/dL LAB HEMATOLOGY METHOD 04/16/2023 9:38 AM EST [facility] HCT 40.5 40.0 - 51.0 % LAB HEMATOLOGY METHOD 04/16/2023 9:38 AM EST [facility] Platelet Count 205 155 - 369 10*3/uL LAB HEMATOLOGY METHOD 04/16/2023 9:38 AM EST [facility] MCV 85 79 - 98 fL LAB HEMATOLOGY METHOD 04/16/2023 9:38 AM EST [facility] MCH 28.3 26.0 - 32.0 pg LAB HEMATOLOGY METHOD 04/16/2023 9:38 AM EST [facility] MCHC 33.3 30.7 - 35.5 g/dL LAB HEMATOLOGY METHOD 04/16/2023 9:38 AM EST [facility] RDW 13.1 11.5 - 14.5 % LAB HEMATOLOGY METHOD 04/16/2023 9:38 AM EST [facility] MPV 10.8 8.8 - 12.5 fL LAB HEMATOLOGY METHOD 04/16/2023 9:38 AM EST [facility] nRBC 0.0 <=0.0 per 100 WBCs LAB HEMATOLOGY METHOD 04/16/2023 9:38 AM EST [facility] Differential Type Automated LAB HEMATOLOGY METHOD 04/16/2023 9:38 AM EST [facility] Neutrophils % 48.0 % LAB HEMATOLOGY METHOD 04/16/2023 9:38 AM EST [facility] Lymphocytes % 40.0 % LAB HEMATOLOGY METHOD 04/16/2023 9:38 AM EST [facility] Monocytes % 8.0 % LAB HEMATOLOGY METHOD 04/16/2023 9:38 AM EST [facility] Eosinophils % 3.0 % LAB HEMATOLOGY METHOD 04/16/2023 9:38 AM EST [facility] Basophils % 1.0 % LAB HEMATOLOGY METHOD 04/16/2023 9:38 AM EST [facility] Immature Granulocytes % 0.0 % LAB HEMATOLOGY METHOD 04/16/2023 9:38 AM EST [facility] Neutrophils Absolute 5.04 1.60 - 6.10 10*3/uL LAB HEMATOLOGY METHOD 04/16/2023 9:38 AM EST [facility] Lymphocytes Absolute 4.21(H) 1.20 - 3.90 10*3/uL LAB HEMATOLOGY METHOD 04/16/2023 9:38 AM EST [facility] Monocytes Absolute 0.86 0.30 - 0.90 10*3/uL LAB HEMATOLOGY METHOD 04/16/2023 9:38 AM EST [facility] Eosinophils Absolute 0.30 0.00 - 0.50 10*3/uL LAB HEMATOLOGY METHOD 04/16/2023 9:38 AM EST [facility] Basophils Absolute 0.06 0.00 - 0.10 10*3/uL LAB HEMATOLOGY METHOD 04/16/2023 9:38 AM EST [facility] Immature Granulocytes Absolute 0.03 0.00 - 0.06 10*3/uL LAB HEMATOLOGY METHOD 04/16/2023 9:38 AM EST [facility] Blood Venous blood specimen / Unknown Venipuncture / Unknown 04/16/2023 7:28 AM EST 04/16/2023 8:09 AM EST [facility] - 04/16/2023 9:38 AM EST Therapeutic decision making should be based on absolute values, rather than percentages. us Tony FOWLER LAB BLOOD ORDERABLES Final Re sult [facility] [address] [place] [id number] * (ABNORMAL) Hemoglobin A1c (04/16/2023 7:28 AM EST) Hemoglobin A1c 10.8(H) <5.7 % 04/16/2023 10:43 AM EST [facility] Blood Venous blood specimen / [...] Adults <6.0% Children and Adolescents <7.5% Source: [place] [employer]. Standards of medical care in diabetes,2017. Diabetes Care.2017:40 (suppl 1):S1-S135. HbA1c assay performed by an ion-exchange chromatography method that is certified traceable to the DCCT. us Tony FOWLER LAB BLOOD ORDERABLES Final Re sult [facility] [address] [place] [phone] * (ABNORMAL) Lipid panel (04/16/2023 7:28 AM EST) Cholesterol, Plasma 86 <200 mg/dL 04/16/2023 10:01 AM EST [facility] Comment: Cholesterol Reference Range (age >17 years): Desirable <200 mg/dL Borderline 200 to 239 mg/dL Undesirable >239 mg/dL HDL 28(L) >=40 mg/dL 04/16/2023 10:01 AM EST [facility] Comment: HDL Cholesterol Reference Ranges (age >17 years): Female, acceptable > or = 50 mg/dL Male, acceptable > or = 40 mg/dL Triglycerides, Plasma 155(H) <150 mg/dL 04/16/2023 10:01 AM EST [facility] Comment: Triglyceride Reference Range (age >17 years): Desirable: <150 mg/dL Borderline high: 150 to 199 mg/dL High: 200 to 499 mg/dL Very high: >499 mg/dL Increased risk of pancreatitis: >1000 mg/dL Cholesterol/HDL Ratio 3 04/16/2023 10:01 AM EST [facility] LDL, Calculated 32 <100 mg/dL 10:01 AM EST [facility] Comment: LDL Cholesterol Reference Range [...] Unknown 04/16/2023 10:01 AM EST [facility] Blood Venous blood specimen / Unknown Venipuncture / Unknown 04/16/2023 7:28 AM EST 04/16/2023 8:22 AM EST Tony FOWLER LAB BLOOD ORDERABLES Final Re sult [facility] [address] [place] [address] * (ABNORMAL) Comprehensive metabolic panel (04/16/2023 7:28 AM EST) Glucose, Plasma 222(H) 74 - 99 mg/dL 04/16/2023 10:01 AM EST [facility] BUN, Plasma 12 7 - 21 mg/dL 04/16/2023 10:01 AM [facility] Creatinine, Plasma 0.80 0.80 - 1.30 mg/dL 04/16/2023 10:01 AM [facility] BUN/Creatinine Ratio 15 04/16/2023 10:01 AM EST [facility] Sodium, Plasma 138 136 - 145 mmol/L 04/16/2023 10:01 AM EST [facility] Potassium, Plasma 4.2 3.7 - 4.8 mmol/L 04/16/2023 10:01 AM EST [facility] Chloride, Plasma 103 97 - 107 mmol/L 04/16/2023 10:01 AM [facility] CO2, Plasma 25 22 - 29 mmol/L 04/16/2023 10:01 AM EST [facility] Anion Gap 10 6 - 16 mmol/L 04/16/2023 10:01 AM EST [facility] Total Calcium, Plasma 9.1 8.9 - 10.2 mg/dL 04/16/2023 10:01 AM EST [facility] Total Protein 7.3 6.3 - 7.9 g/dL 04/16/2023 10:01 AM EST [facility] Albumin, Plasma 4.0 3.5 - 5.2 g/dL 04/16/2023 10:01 AM [facility] AST, Plasma 26 10 - 50 U/L 04/16/2023 10:01 AM [facility] ALT, Plasma 17 10 - 50 U/L 04/16/2023 10:01 AM [facility] Alkaline Phosphatase, Plasma 68 40 - 115 U/L 04/16/2023 10:01 AM [facility] Total Bilirubin, Plasma 0.6 0.2 - 1.1 mg/dL 04/16/2023 10:01 AM [facility] eGFRcr 108.5 mL/min/1.7 3m*2 04/16/2023 10:01 AM [facility] Comment:Reported eGFRcr in m L/min/1.73m2 is based the CKD-EPI 2020 equation that does not use a race coefficient. Blood Venous blood specimen / Unknown Venipuncture / Unknown 04/16/2023 7:28 AM EST 04/16/2023 8:22 AM EST us Tony FOWLER LAB BLOOD ORDERABLES Final Re sult [facility] [address] [place] [phone] * Hepatitis panel, acute (04/16/2023 7:28 AM EST) Hepatitis B Surf Antigen Negative Negative 04/16/2023 10:47 AM EST [facility] Hepatitis C Antibody Negative Negative 04/16/2023 10:47 AM EST [facility] Hepatitis A Antibody IgM Negative Negative 04/16/2023 10:47 AM EST [facility] Hepatitis B Core Antibody IgM Negative Negative 04/16/2023 10:47 AM EST [facility] Blood Venous blood specimen / Unknown Venipuncture / Unknown 04/16/2023 7:28 AM EST 04/16/2023 8:25 AM EST us Tony FOWLER LAB BLOOD ORDERABLES Final Re sult [facility] [address] [place] [address] * (ABNORMAL) Serum Drug Screen (04/16/2023 7:28 AM EST) 9 Carboxy THC <5 <5 ng/mL 04/17/2023 9:32 PM EST [facility] Alprazolam <5 <5 ng/mL 04/17/2023 9:32 PM EST [facility] Amphetamine <10 <10 ng/mL 04/17/2023 9:32 PM EST [facility] Benzolyecgonine <20 <20 ng/mL 9:32 PM EST [facility] Buprenorphine <1 <1 ng/mL 04/17/2023 9:32 PM EST [facility] Butalbital <50 <50 ng/mL 04/17/2023 [...] ng/mL 04/17/2023 9:32 PM EST [facility] Methadone <10 <10 ng/mL 04/17/2023 9:32 PM EST [facility] Methadone Metabolite <10 <10 ng/mL 03/2023 9:32 PM EST [facility] Methamphetamine <10 <10 ng/mL 9:32 PM EST [facility] Midazolam <5 <5 ng/mL 04/17/2023 9:32 PM EST [facility] Morphine <2 <2 ng/mL 04/17/2023 9:32 PM EST [facility] Norbuprenorphine <5 <5 ng/mL 04/17/19 9:32 PM EST [facility] Nordiazepam <10 <10 ng/mL 04/17/2023 9:32 PM EST [facility] Oxazepam <5 <5 ng/mL 04/17/2023 9:32 PM EST [facility] Oxycodone 12(H) <2 ng/mL 04/17/2023 9:32 PM EST [facility] Oxymorphone <2 <2 ng/mL 04/17/2023 9:32 PM EST [facility] Phenobarbital <50 <50 ng/mL 04/17/2023 9:32 PM EST [facility] Temazepam <5 <5 ng/mL 04/17/2023 9:32 PM EST [facility] Tramadol <20 <20 ng/mL 04/17/2023 9:32 PM EST [facility] Blood Venous blood specimen / Unknown Venipuncture / Unknown 04/16/2023 7:28 AM EST 04/16/2023 8:32 AM EST [facility] - 04/17/2023 9:32 PM EST Test performed by LC-MS/MS at the [facility]. This test was developed and its performance characteristics determined by [facility]. It has not been cleared or approved by the FDA. The laboratory is regulated under CLIA as qualified to perform high-complexity testing. This test is used for clinical purposes. us Tony FOWLER LAB BLOOD ORDERABLES Final Re sult [facility] [address] [place] [address] * Levetiracetam level (04/16/2023 7:28 AM EST) Levetiracetam (Keppra) 22.7 12.0 - 46.0 ug/mL 04/16/2023 9:29 PM EST [facility] Blood Venous blood specimen / Unknown Venipuncture / Unknown 04/16/2023 7:28 AM EST 04/16/2023 8:32 AM EST Narrative [facility] - 04/16/2023 9:29 PM EST Test performed by LC-MS/MS at the [facility]. This test was developed and its performance characteristics determined by [facility]. It has not been cleared or approved by the FDA. The laboratory is regulated under CLIA as qualified to perform high-complexity testing. This test is used for clinical purposes. Tony FOWLER LAB BLOOD ORDERABLES Final Re sult Performing Organization Address [facility] de Phone Number [facility] [address] [place] [address] * (ABNORMAL) Topiramate level (04/16/2023 7:28 AM EST) Topiramate <1.0(L) 2.0 - 20.0 ug/mL 04/16/2023 9:36 PM EST [facility] Blood Venous blood specimen / Unknown Venipuncture / Unknown 04/16/2023 7:28 AM EST 04/16/2023 8:32 AM EST Narrative [facility] - 04/16/2023 9:36 PM EST Topiramate Reference Ranges: Anticonvulsant: 5.0 to 20.0 ug/mL Psychiatric: 2.0 to 8.0 ug/mL Test performed by LC-MS/MS at the [facility]. This test was developed and its performance characteristics determined by [facility]. It has not been cleared or approved by the FDA. The laboratory is regulated under CLIA as qualified to perform high-complexity testing. This test is used for clinical purposes. Tony FOWLER LAB BLOOD ORDERABLES Final Re sult Performing Organization Address [facility]/State/ZIP Co de Phone Number [facility] [address] [place] [address] documented in this encounter Visit Diagnoses Diagnosis Routine general medical examination at a health care facility documented in this encounter Care Teams Ripsaw Matcher Relationship Specialty Start Date End Date Shamika Roy APRN [address] [place] [address] PCP - General 09/08/23 documented as of this encounter
--- OUTSIDE RECORDS SUMMARY | 2025-03-15 18:05 | XMS_ITS | Clinical Summary ---
Author Organization [facility] Address [address] [place] [id number] Care Team Providers Care Band Manager Name Role Phone Unavailable Primary Care Provider [...] of 2) 09/19/2023 COVID-19 Vaccine (1 - 2024-2 6 season) 2024 Influenza Vaccine (#1) 2024 Meningococcal B Vaccine Aged Out No l onger eligible based on patient's age to complete this topic Insurance [facility] MEDICARE HMO MR [employer] MEDICARE HMO MR
--- NOTE | 2025-03-15 18:27 | XR_ITS ---
PROCEDURE INFORMATION: Exam: XR Left Knee Exam date and time: 03/15/2025 7:24 PM Age: 49 years old Clinical indication: Injury or trauma; Fall; Blunt trauma; Knee; Left TECHNIQUE: Imaging protocol: Radiologic exam of the left knee. Views: 3 views. COMPARISON: US ARTERIAL LOWER EXT REST 11/13/2022 11:33 AM FINDINGS: Bones/joints: See Soft tissues finding. Soft tissues: Mild prepatellar soft tissue swelling without acute osseous abnormality. IMPRESSION: Mild prepatellar soft tissue swelling without acute osseous abnormality.
--- NOTE | 2025-03-15 18:27 | CT_ITS ---
PROCEDURE INFORMATION: Exam: CT Cervical Spine Without Contrast Exam date and time: 03/15/2025 7:19 PM Age: 49 years old Clinical indication: Injury or trauma; Fall; Blunt trauma TECHNIQUE: Imaging protocol: Computed tomography of the cervical spine without contrast. Radiation optimization: All CT scans at this facility use at least one of these dose optimization techniques: automated exposure control; mA and/or kV adjustment per patient size (includes targeted exams where dose is matched to clinical indication); or iterative reconstruction. COMPARISON: CT CERVICAL SPINE WO CON 11/18/2024 7:23 PM FINDINGS: Bones: No acute cervical spine fracture is present. Alignment is anatomic. Moderate degenerative changes of the cervical spine are present. There is moderate/severe spinal canal stenosis at C4-C5 due to a posterior disc osteophyte complex. There is probable moderate canal stenosis at C5-C6 and C6-C7. Lungs: The lung apices are clear. Soft tissues: Unremarkable. IMPRESSION: 1. No acute cervical spine fracture. 2. Chronic findings as discussed above.
--- NOTE | 2025-03-15 18:27 | CT_ITS ---
PROCEDURE INFORMATION: Exam: CT Pelvis Without Contrast, Skeleton Exam date and time: 03/15/2025 7:22 PM Age: 49 years old Clinical indication: Injury or trauma; Fall; Blunt trauma (contusions or hematomas); Left; Hip TECHNIQUE: Imaging protocol: Computed tomography of the pelvis without contrast. Exam focused on the skeleton. Radiation optimization: All CT scans at this facility use at least one of these dose optimization techniques: automated exposure control; mA and/or kV adjustment per patient size (includes targeted exams where dose is matched to clinical indication); or iterative reconstruction. COMPARISON: CT BONY PELVIS 02/27/2024 2:02 PM FINDINGS: Bones/joints: Postsurgical changes compatible with posterior fusion with transpedicular screws, and vertical stabilizing bars between levels L5-S1. Moderate loss of intervertebral disc space with degenerative changes involving L5-S1. No evidence of acute osseous abnormality. Soft tissues: Unremarkable. IMPRESSION: No evidence of acute osseous abnormality.
--- NOTE | 2025-03-15 18:27 | CT_ITS ---
PROCEDURE INFORMATION: Exam: CT Maxillofacial Without Contrast Exam date and time: 03/15/2025 7:15 PM Age: 49 years old Clinical indication: Injury or trauma; Fall; Blunt trauma (contusions or hematomas); Other: Unsure; Additional info: Head strike TECHNIQUE: Imaging protocol: Computed tomography of the face without contrast. Radiation optimization: All CT scans at this facility use at least one of these dose optimization techniques: automated exposure control; mA and/or kV adjustment per patient size (includes targeted exams where dose is matched to clinical indication); or iterative reconstruction. COMPARISON: CT HEAD/BRAIN WO CON 11/18/2024 7:21 PM FINDINGS: Paranasal sinuses: Bilateral frontal sinusitis is present. There is partial opacification of the anterior ethmoid air cells. Minimal mucosal thickening is noted in the remaining paranasal sinuses. Orbital cavities: The orbits are normal. The globes are unremarkable. Bones: No acute fracture. Soft tissues: Unremarkable. IMPRESSION: No acute facial fracture.
--- NOTE | 2025-03-15 18:27 | CT_ITS ---
PROCEDURE INFORMATION: Exam: CT Head Without Contrast Exam date and time: 03/15/2025 7:15 PM Age: 49 years old Clinical indication: Injury or trauma; Fall; Blunt trauma (contusions or hematomas); Additional info: Head strike TECHNIQUE: Imaging protocol: Computed tomography of the head without contrast. Radiation optimization: All CT scans at this facility use at least one of these dose optimization techniques: automated exposure control; mA and/or kV adjustment per patient size (includes targeted exams where dose is matched to clinical indication); or iterative reconstruction. COMPARISON: CT HEAD/BRAIN WO CON 11/18/2024 7:21 PM FINDINGS: Brain: Chronic infarcts are noted in the bilateral cerebellar hemispheres. There is no acute intracranial hemorrhage, cerebral edema, mass effect, or midline shift. Cerebral ventricles: No hydrocephalus. Paranasal sinuses: Bilateral frontal sinusitis is present. Partial opacification of the anterior ethmoid air cells is also noted. Mastoid air cells: Visualized mastoid air cells are well aerated. Orbital cavities: The visualized orbits appear unremarkable. Bones: Unremarkable. No acute fracture. Soft tissues: Unremarkable. Vasculature: Atherosclerotic calcifications are seen involving the cavernous carotid arteries. IMPRESSION: 1. No acute intracranial abnormality. 2. Chronic bilateral cerebellar infarcts 3. Frontal sinusitis
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
[2025-03-15] MEDS: OXYCODONE 5MG IMMEDIATE RELEASE TABLET 10 MG PO (18:45)
[2025-03-15] MEDS: ACETAMINOPHEN 500MG TAB 1000 MG PO (20:21)
[2025-03-15 20:23] VITALS: BP 136/74; PULSE 71; RESP 18; O2SAT 97
[2025-03-15 20:24] VITALS: TEMP 36.7
[2025-03-15 20:33] VITALS: BP 136/76; PULSE 71; RESP 18; TEMP 36.7; O2SAT 97
--- NOTE | 2025-03-15 20:36 | PC.NURSE ---
Addendum entered by Eliana Espinoza RN 03/15/25 20:39: pt reported he would call someone for a ride Original Note: pt angry upon d/c stating we weren't doing anything for him because he takes alot of oxycodone at home. Pt was given oxycodone and tylenol here in the ED. MD Winters at bedside.
== END 2025-03-15 20:38 | disposition home or self-care (01) ==
PROVIDERS: Emergency Provider Student in an Organized Health Care Education/Training Program; PCP Nurse Practitioner
DX: M25.562 Pain in left knee (principal); R51.9 Headache, unspecified; W01.10XA Fall on same level from slipping, tripping and stumbling with subsequent striking against unspecified object, initial encounter
CPT/HCPCS: 70450; 70486; 72125; 72192; 73562; 99284; 99285